=== PATIENT | male | born 1945 | race Caucasian/White ===

== ENCOUNTER → 2017-12-29 11:13 | Outpatient (CLI) | payer MEDICARE, OTHER, SELFPAY ==
[2017-12-29 13:10] LABS: Absolute Lymphocyte Count 1.75 X10^3/ul (0.83-4.51); Absolute Neutrophil Count 3.5 X10^3/uL (2.0-7.7); Basophil# 0.01 X10^3/uL; Basophil% 0.2 % (0-1); Eosinophil# 0.35 X10^3/uL; Eosinophils% 5.7 % (0-5); Hematocrit 43.2 % (40-54); Hemoglobin 14.6 g/dl (13.0-16.5); Lymphocyte # 1.75 X10^3/ul (4.0); Lymphocyte % 28.5 % (19-41); Mean Corp Hgb Conc 33.8 g/gl (32-36); Mean Corpuscular Hgb 31.5 pg (27.0-32.0); Mean Corpuscular Volume 93.1 fL (80-94); Mean Platelet Vol. 9.9 fl (6.2-12.0); Monocyte# 0.49 X10^3/uL; Neutrophil # 3.53 X10^3/uL (2.7-7.7); Neutrophil % 57.3 % (47-70); Platelet Count 205 K/mm3 (150-450); RBC Distribution Width SD 43.2 fl (35.1-43.9); Red Blood Count 4.64 M/mm3 (4.6-6.2); White Blood Count 6.2 K/mm3 (4.4-11.0)
[2017-12-29 13:11] LABS: POSITIVE COUNT NO; POSITIVE DIFFERENTIAL NO; POSITIVE MORPHOLOGY NO
[2017-12-29 13:32] LABS: ALB/GLOB Ratio 1.1 RATIO (0.9-2.4); AST(SGOT) 20 U/L (15-37); Alanine Aminotransfer ALT/SGPT 34 U/L (16-61); Albumin, Serum 3.8 g/dL (3.2-5.0); Alkaline Phosphatase 64 U/L (45-117); Anion Gap 10 (5-15); BUN 13 mg/dL (7-18); BUN/Creat Ratio 11.9 RATIO (10-20); Calcium,Total 8.6 mg/dL (8.5-10.1); Chloride 104 mmol/L (98-107); Creatinine, Serum 1.09 mg/dL (0.70-1.30); EST Glomerular Filtration Rate 71 mL/min (>60); Est Glom Filt Rate - Afr Amer 86 mL/min (>60); Globulin 3.6 g/dL (2.2-4.2); Glucose 152 mg/dL (74-106); Potassium 3.8 mmol/L (3.5-5.1); Protein, Total 7.4 g/dL (6.4-8.2); Sodium Level 140 mmol/L (136-145)
[2017-12-30 08:05] LABS: Hemoglobin A1c 5.9 % (4.2-6.3)
[2017-12-30 16:13] LABS: Hep C Antibodies <0.1 s/co ratio (0.0-0.9)
== END ==
PROVIDERS: Family Provider Family Medicine Geriatric Medicine; PCP Family Medicine Geriatric Medicine; Visit Provider Family Medicine Geriatric Medicine
DX: I10 Essential (primary) hypertension (principal); E16.2 Hypoglycemia, unspecified; Z13.89 Encounter for screening for other disorder; Z12.5 Encounter for screening for malignant neoplasm of prostate
CPT/HCPCS: 36415; 80053; 83036; 84153; 84443; 85025; 86803; G0103

== ENCOUNTER → 2018-01-19 16:05 | Outpatient (CLI) | payer MEDICARE, OTHER, SELFPAY | PROVIDERS: Family Provider Family Medicine Geriatric Medicine; PCP Family Medicine Geriatric Medicine; Visit Provider Family Medicine Geriatric Medicine | DX: R69 Illness, unspecified (principal) | CPT/HCPCS: 87633 ==

== ENCOUNTER → 2018-01-30 16:11 | Outpatient (CLI) | payer MEDICARE, OTHER, SELFPAY ==
[2018-02-04 11:58] LABS: Acetylcholine Receptor Binding < 0.03 nmol/L (0.00-0.24)
== END ==
PROVIDERS: Family Provider Family Medicine Geriatric Medicine; PCP Family Medicine Geriatric Medicine; Visit Provider Ophthalmology
DX: H53.2 Diplopia (principal)
CPT/HCPCS: 36415; 84238

== ENCOUNTER 2018-04-07 20:43 | Observation (INO) | payer MEDICARE, OTHER, SELFPAY ==
[2018-04-07 20:48] VITALS: BP 140/93; PULSE 71; RESP 16; TEMP 36.6; O2SAT 97; BMI 32.3
--- NOTE | 2018-04-07 21:28 | EKG12_ITS ---
Test Reason : Blood Pressure : / mmHG Vent. Rate : 063 BPM Atrial Rate : 063 BPM P-R Int : 192 ms QRS Dur : 108 ms QT Int : 422 ms P-R-T Axes : 043 029 024 degrees QTc Int : 431 ms Normal sinus rhythm Normal ECG Confirmed by ONEIL QUIÑONES, GERALD ([id number]), news video editor BONNIE COLLINS ([id number]) on 04/09/2018 9:05:33 AM Referred By: GUERITA Confirmed By:GERALD RIGGS MD
--- NOTE | 2018-04-07 21:28 | CT_ITS ---
STUDY: CT BRAIN WITHOUT CONTRAST REASON FOR EXAM: Male, 72 years old. Weakness RADIATION DOSAGE (If Supplied By Facility): CTDIvol = ( 44.99 ) mGy, DLP = ( 812.98 ) mGycm TECHNIQUE: Transaxial CT imaging of the brain was performed without administration of intravenous contrast material. Individualized dose optimization techniques were used for this CT. COMPARISON: None. FINDINGS: Normal soft tissue structures. Normal calvarium. Normal size ventricles and extra-axial spaces for the patient's age. Mild white matter microangiopathic ischemic changes of the cerebral hemispheres. Normal basal ganglia and thalami. Normal brainstem. Normal cerebellum. There is no intracranial hemorrhage. There are no findings of an acute ischemic infarction. Left maxillary retention cyst. CT/Brain/Head without Contrast IMPRESSION: Mild age-related changes of the brain. Electronically Signed: Jere Garrido DO at 22:13 EDT Tel [phone], Service support ,
[2018-04-07 21:32] VITALS: O2SAT 97
[2018-04-07 21:36] LABS: Bedside Glucose 135 mg/dL (70-110)
[2018-04-07 21:40] LABS: Absolute Lymphocyte Count 2.73 X10^3/ul (0.83-4.51); Absolute Neutrophil Count 3.2 X10^3/uL (2.0-7.7); Basophil# 0.01 X10^3/uL; Basophil% 0.1 % (0-1); Eosinophil# 0.26 X10^3/uL; Eosinophils% 3.8 % (0-5); Hematocrit 39.9 % (40-54); Hemoglobin 13.8 g/dl (13.0-16.5); Lymphocyte # 2.73 X10^3/ul (4.0); Lymphocyte % 39.6 % (19-41); Mean Corp Hgb Conc 34.6 g/gl (32-36); Mean Corpuscular Hgb 31.8 pg (27.0-32.0); Mean Corpuscular Volume 91.9 fL (80-94); Mean Platelet Vol. 9.6 fl (6.2-12.0); Monocyte# 0.65 X10^3/uL; Monocyte% 9.4 % (0-10); Neutrophil # 3.23 X10^3/uL (2.7-7.7); Platelet Count 166 K/mm3 (150-450); RBC Distribution Width CV 12.3 % (11.6-14.6); RBC Distribution Width SD 41.6 fl (35.1-43.9); Red Blood Count 4.34 M/mm3 (4.6-6.2); White Blood Count 6.9 K/mm3 (4.4-11.0)
--- NOTE | 2018-04-07 21:40 | RAD_ITS ---
STUDY: X-RAY CHEST REASON FOR EXAM: Male, 72 years old. Near-syncope TECHNIQUE: Single frontal view COMPARISON: None. FINDINGS: The lungs are clear and expanded. There is no demonstrated pleural abnormality. Normal size heart. Normal mediastinum and duke. Normal visualized pulmonary arteries. Calcified aortic arch and descending thoracic aorta. Degenerative changes of the thoracic spine. Normal visualized ribs, clavicles, and shoulders. There is no demonstrated abnormality of the visualized soft tissue structures of the upper abdomen. RAD/Chest 1 View IMPRESSION: Normal x-ray examination of the chest. Electronically Signed: Jeer Garrido DO at 22:06 EDT Tel [phone], Service support ,
[2018-04-07 21:42] LABS: POSITIVE COUNT NO; POSITIVE DIFFERENTIAL NO; POSITIVE MORPHOLOGY NO
[2018-04-07 21:46] LABS: International Normalized Ratio 1.1; Prothrombin Time (Protime)PT. 13.7 SECONDS (11.7-14.9)
[2018-04-07 21:47] LABS: Partial Thromboplast Time 28.9 Seconds (24.1-36.2)
[2018-04-07 22:00] VITALS: BP 147/77; PULSE 66; RESP 18; O2SAT 96
[2018-04-07 22:16] LABS: Anion Gap 9 (5-15); BUN 16 mg/dL (7-18); BUN/Creat Ratio 14.3 RATIO (10-20); Calcium,Total 8.4 mg/dL (8.5-10.1); Chloride 106 mmol/L (98-107); Creatinine, Serum 1.12 mg/dL (0.70-1.30); EST Glomerular Filtration Rate 69 mL/min (>60); Est Glom Filt Rate - Afr Amer 83 mL/min (>60); Estimated Creatinine Clearance 62.46 ml/min; Glucose 110 mg/dL (74-106); Potassium 3.6 mmol/L (3.5-5.1); Sodium Level 139 mmol/L (136-145)
[2018-04-07 22:30] VITALS: BP 142/79; PULSE 67; RESP 14; TEMP 36.8; O2SAT 96
[2018-04-07 23:00] VITALS: BP 135/75; PULSE 67; RESP 16; O2SAT 95
--- NOTE | 2018-04-07 23:27 | HP.PCM_ITS ---
Problem List (1) TIA Status: Acute (2) History of inferior wall myocardial infarction Status: Chronic (3) Atherosclerotic heart disease of [place] coronary artery without angina pectoris Status: Chronic Qualifiers: [place] vs. transplanted heart: [place] heart Qualified Code(s): I25.10 - Atherosclerotic heart disease of [place] coronary artery without angina pectoris Comment: per heart cath 06/03/2002 [facility] per Dr. Orta (4) History of left heart catheterization Status: Chronic Comment: May 2002 (5) History of angioplasty of peripheral vessel Status: Chronic Comment: 1997 right leg (6) URI, acute Status: Acute (7) Asthma Status: Chronic (8) Arthritis Status: Chronic (9) HTN (hypertension) Status: Chronic Qualifiers: Hypertension type: essential hypertension Qualified Code(s): I10 - Essential (primary) hypertension History of Present Illness Date of Admission: 04/07/18 Chief Complaint: TIA-like symptoms The patient is a 72 year old M with multiple comorbidities as mentioned above including chronic diplopia, 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 He also felt like sudden weakness, numbness below the midsection of his body and his legs not able to bear his weight along with disagreement imbalance. He denies vertigo at this time although he has history of vertigo in the past. Denies previous history of stroke There is also symptom complex lasted for about half an hour with the EMS arrived and brought him to ER. EMS blood pressure was 174/93, heart rate 74/min , respiratory rate 16. In ER, EKG shows normal sinus rhythm. CT has did not show acute change. NIH stroke scale 0. [] Past Medical History Past Medical History (Chronic Problems): Chronic Problems (Last Reviewed 12/04/17 @ 14:41 by Costa Orta MD) History of inferior wall myocardial infarction (Chronic) Atherosclerotic heart disease of [place] coronary artery without angina pectoris (Chronic) per heart cath 06/03/2002 [facility] per Dr. Orta History of left heart catheterization (Chronic) May 2002 History of angioplasty of peripheral vessel (Chronic) 1997 right leg Asthma (Chronic) Arthritis (Chronic) HTN (hypertension) (Chronic) Medical History: Medical History (Last Reviewed 12/04/17 @ 14:41 by Costa Orta MD) History of inferior wall myocardial infarction (Chronic) I25.2 Atherosclerotic heart disease of [place] coronary artery without angina pectoris (Chronic) I25.10 per heart cath 06/03/2002 [facility] per Dr. Orta Asthma (Chronic) J45.909 Arthritis (Chronic) M19.90 HTN (hypertension) (Chronic) I10 Hay fever J30.1 Allergies No Known Allergies Allergy (Verified 12/04/17 14:23) Home Medications: Ambulatory Orders Medication Instructions Recorded amitriptyline 10 mg tablet 25 mg PO QHS 10/10/17 cilostazol 50 mg tablet 100 mg PO DAILY 10/10/17 folic acid 20 mg capsule 1 mg PO DAILY 10/10/17 qobsawnvexo-zulfcxksw-vwey820-hyal 2 tab PO BID 10/10/17 750 mg-100 mg-125 mg-1.65 mg tablet loratadine 10 mg tablet 10 mg PO QDAY 10/10/17 modafinil 100 mg tablet 200 mg PO DAILY 10/10/17 sqhengdx-wgo-wemaz acid 300 1 tab PO DAILY 10/10/17 mcg-lycopene 600 mcg-lutein 300 mcg tablet nitroglycerin 0.3 mg sublingual 0.3 mg SUBLINGUAL Q5M PRN 10/10/17 tablet omega-3 fatty acids 1,000 mg 1,000 mg PO QDAY 10/10/17 capsule riboflavin (vitamin B2) 100 mg 100 mg PO BID 10/10/17 tablet aspirin 81 mg tablet,delayed 81 mg PO DAILY tab 12/04/17 release gabapentin 300 mg capsule 300 mg PO DINNER 12/04/17 omeprazole 20 mg capsule,delayed 20 mg PO QDAY 12/04/17 release verapamil ER 120 mg 24 hr 200 mg PO QHS cap 12/04/17 capsule,extended release Albuterol IH (ProAir) [Proair Hfa 1 - 2 puff INHALATION Q6H PRN PRN 04/07/18 (SP)Vent Pts] Atorvastatin Calcium [Lipitor] 80 mg PO QHS 04/07/18 Gabapentin [Neurontin] 600 mg PO QHS 04/07/18 Isosorbide Mononitrate [Isosorbide 30 mg PO QHS 04/07/18 Mononitrate ER] Metoprolol Succinate [Toprol Xl] 50 mg PO QHS 04/07/18 Budesonide/Formoterol 80-4.5 2 puff INHALATION BID 04/08/18 [Symbicort 80-4.5 Mcg Inhaler] Enalapril Maleate [Vasotec] 10 mg PO BID 04/08/18 Fluticasone Furoate [Veramyst] 27.5 mcg NS BID 04/08/18 Gabapentin [Neurontin] 300 mg PO DINNER 04/08/18 Omeprazole [Prilosec] 20 mg PO BID 04/08/18 Surgical History: Surgical History (Last Reviewed 12/04/17 @ 14:41 by Costa Orta MD) History of left heart catheterization (Chronic) Z98.890 May 2002 History of angioplasty of peripheral vessel (Chronic) Z98.62 1998 right leg Smoking Status: Former smoker - *Family History Paternal Family History: Family History (Last Reviewed 12/04/17 @ 14:41 by Costa Orta MD) Father Myocardial infarction, Onset Age: 40 Cancer History Items: No pertinent history Review of Systems Constitutional: Denies: Chills, Fever, Weight Change Eyes: Reports: Double vision - chronic. Denies: Blurred vision, Vision Change HEENT: Denies: Head Aches, Sinus Congestion, Sinus Drainage Cardiovascular: Denies: Chest Pain, Palpitations Respiratory: Denies: Cough, Shortness of breath at rest, Sputum production Gastrointestinal: Denies: Abdominal Pain, Nausea, Vomiting Genitourinary: Denies: Dysuria Musculoskeletal: Denies: Joint Pain, Joint Tenderness Skin: Denies: Rash, Wounds Neurological: Reports: Balance problems, Change in Speech, Slurred speech, Confusion, Focal weakness, Incoordination, Numbness. Denies: Tingling Psychiatric: Denies: Anxiety, Depression, Homicidal Ideations, Suicidal Ideations Hematologic/ Lymphatic: Denies: Easy Bruising, Easy Bleeding VTE Information - Inpt Only VTE Present on Admission: No VTE Mechan Device Prophylaxis: SCD's VTE Pharm Prophylaxis ordered?: Yes Patient Problems: Active and Suspected Problems (Last Reviewed 12/04/17 @ 14:41 by Costa Orta MD ) TIA (Acute) - Physical Exam General: Alert, Oriented x3, Cooperative HEENT: Atraumatic, PERRLA, EOMI, Normocephalic, - - Field of vision to 1-1 confrontation test is within normal limit. Has diplopia on Looking left horizontal side Neck: Supple, No JVD, Negative Carotid Bruits Lungs: Clear to auscultation, Normal air movement Cardiovascular: Regular rate, Normal S1, Normal S2, No murmurs Abdomen: Bowel Sounds Present, Soft, Non Tender Extremities: No edema, Capillary Refill Less than 3 Seconds Skin: No rashes, No breakdown Musculoskeletal: No Tenderness to Palpation of Joints or Extremities, Arthritic Changes Neurological: Cranial nerves II-XII grossly intact, Deep Tendon Reflexes 2+/4 and Symmetrical, Neuro grossly intact, Motor Exam 5/5 strength throughout Psych/Mental Status: Normal Affect, Appropriate Vital Signs Temp Pulse Resp BP Pulse Ox 98.2 F 67 16 135/75 H 95 04/07/18 22:30 04/07/18 23:00 04/07/18 23:00 04/07/18 23:00 04/07/18 23:00 Oxygen Flow Rate (L/min) 2 Oxygen Delivery Method Room Air Weight: 225 lb Body Mass Index (BMI) 32.3 Finger Stick Blood Glucose 135 Laboratory Tests Past 24 Hrs 04/07/18 04/07/18 04/07/18 21:00 21:00 21:00 WBC 6.9 RBC 4.34 L Hgb 13.8 Hct 39.9 L MCV 91.9 MCH 31.8 MCHC 34.6 RDW 12.3 RDW Differential 41.6 Plt Count 166 MPV 9.6 Immature Gran % (Auto) 0.100 Neut % (Auto) 47.0 Lymph % (Auto) 39.6 Ida % (Auto) 9.4 Eos % (Auto) 3.8 Baso % (Auto) 0.1 Absolute Neuts (auto) 3.2 Absolute Lymphs (auto) 2.73 Total Counted Not Reportable PT 13.7 INR 1.1 APTT 28.9 Sodium 139 Potassium 3.6 Chloride 106 Carbon Dioxide 24.0 Anion Gap 9 BUN 16 Creatinine 1.12 Estim Creat Clear Calc 62.46 Est GFR (MDRD) Af Amer 83 Est GFR (MDRD) Non-Af 69 BUN/Creatinine Ratio 14.3 Glucose 110 H Calcium 8.4 L Troponin I < 0.015 POC Glucose 04/07/18 21:30 POC Glucose 135 H Assessment/Plan All Active Problems (Last Reviewed 12/04/17 @ 14:41 by Costa Orta MD) TIA (Acute) URI, acute (Acute) The patient is a 72 year old M with multiple comorbidities as mentioned above including chronic diplopia, 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 He also felt like sudden weakness, numbness below the midsection of his body and his legs not able to bear his weight along with disagreement imbalance. He denies vertigo at this time although he has history of vertigo in the past. Denies previous history of stroke There is also symptom complex lasted for about half an hour with the EMS arrived and brought him to ER. EMS blood pressure was 174/93, heart rate 74/min , respiratory rate 16. In ER, EKG shows normal sinus rhythm. CT has did not show acute change. NIH stroke scale 0. 1. TIA-like symptoms: Patient is being admitted in PCU. Stroke workup with MRI brain, CT angiogram of head and neck, 2D echo. Troponin enzyme is negative. conveyor monitor. BP and glucose control as per TIA/stroke guidelines. PT/OT and speech evaluation. Patient on aspirin and a statin. Neuro consult. 2. Mild coronary artery disease: Patient follows Dr. orta.2. Patient had 2-4 times cardiac cath but no stent. The patient on baby aspirin, atorvastatin, isosorbide mononitrate, metoprolol succinate at home. Cardiac medications continued. 3. Eye symptoms: Patient has diplopia the exact reason on left side of visual field:. Patient follows Dr. Flores was told does not have glaucoma or cataract or posterior ophthalmologic disease. Patient denies diabetes mellitus. Patient request sending the MRI brain to his wood drilling machine operator and his appointment next Friday or following Friday. 4. Other comorbidities include right leg angioplasty in 1997, hypertension, peripheral neuropathy, arthritis and asthma: Stable. Patient is on Neurontin. Home medication reconciliation done. This note was generated with [employer] software. Every effort was made to ensure accuracy, however computerized rock cutter mistakes may persist. Laboratory Results 04/07/18 21:00: WBC 6.9, RBC 4.34 L, Hgb 13.8, Hct 39.9 L, MCV 91.9, MCH 31.8, MCHC 34.6, RDW 12.3, RDW Differential 41.6, Plt Count 166, MPV 9.6, Immature Gran % (Auto) 0.100, Neut % (Auto) 47.0, Lymph % (Auto) 39.6, Ida % (Auto) 9.4 , Eos % (Auto) 3.8, Baso % (Auto) 0.1, Absolute Neuts (auto) 3.2, Absolute Lymphs (auto) 2.73, Total Counted Not Reportable 04/07/18 21:00: PT 13.7, INR 1.1, APTT 28.9 04/07/18 21:00: Sodium 139, Potassium 3.6, Chloride 106, Carbon Dioxide 24.0, Anion Gap 9, BUN 16, Creatinine 1.12, Estim Creat Clear Calc 62.46, Est GFR ( MDRD) Af Amer 83, Est GFR (MDRD) Non-Af 69, BUN/Creatinine Ratio 14.3, Glucose 110 H, Calcium 8.4 L, Troponin I < 0.015 04/07/18 21:30: POC Glucose 135 H Clinical Impression(s) from Imaging Studies Brain CT 04/07/18 21:28 IMPRESSION: Mild age-related changes of the brain. Chest X-Ray 04/07/18 21:40 IMPRESSION: Normal x-ray examination of the chest. Code Visit OBSV E&M: [id number] Initial observation care L3
--- NOTE | 2018-04-07 23:37 | ED.DCSUM_ITS ---
- ER Visit Summary Date of Service: 04/07/18 Chief Complaint: Near syncope History of Present Illness: The patient is a 72 M presents after near syncopal episode. Patient states he was at the library with his . He started to feel lightheaded and felt like he was going to pass out. He states he had to hold on to avoid falling. When his came to him he was unable to speak and get words out. He then began having slurred speech. He denies chest pain. He has mild nausea and shortness of breath. He complains of sensation of numbness and weakness in both legs. Denies other complaints. Physical Examination: Vitals are stable. Patient is afebrile. Alert no acute distress. HEENT exam is unremarkable. Neck is supple. Lungs are clear and equal bilaterally. Heart is regular rate and rhythm. Abdomen is soft nontender nondistended. Extremities are unremarkable. Skin is warm and dry. No focal neurologic deficit. NIH 0 Remainder of exam is unremarkable. Emergency Department Course and Treatment: EKG sinus rate is 63 with no acute changes. Chest x-ray shows no acute process. CT head shows mild age-related changes. CBC, chemistries unremarkable. INR is 1.1. Troponin is negative. Patient is much improved on repeat evaluation. Repeat NIH continues to be 0. Will discuss with the hospital for observation. Disposition: Admission Impression: Near syncope, TIA This note was generated with [employer] dictation software. It may contain incorrect words, spelling, and punctuation that were not noted in review of the chart prior to signing ED Disposition - Plan for ED Patient: Chief Complaint: Syncope Referrals: Teo Lamb Chi, MD [Primary Care Provider] -
[2018-04-07 23:42] VITALS: BP 141/74; PULSE 70; RESP 12; O2SAT 97
[2018-04-08] VITALS (11 sets, daily range): BP systolic 119–146; BP diastolic 59–87; PULSE 54–76; RESP 16–18; TEMP 36.4–36.5; O2SAT 94–97; BMI 33.1; BMI 33.2
--- NOTE | 2018-04-08 01:05 | MRI_ITS ---
STUDY: MRI BRAIN WITHOUT CONTRAST REASON FOR EXAM: Male, 72 years old. CVA/TIA. Dizziness. Leg weakness. Slurred speech. Difficulty with speech. TECHNIQUE: Standardized multiplanar fat and water weighted pulse sequences were obtained. COMPARISON: CT head without contrast 04/07/2018. FINDINGS: No restricted diffusion to suspect acute or subacute ischemic infarct. Normal size of the ventricles and extra-axial spaces for the patient's age. Normal white matter tracts of the supratentorial brain. Normal bilateral basal ganglia. Normal thalami. There is no extra-axial fluid accumulation. Normal flow voids within the major intracranial circulation suggesting patency by spin echo criteria. Normal sella turcica, pituitary gland, infundibular stalk, optic chiasm and hypothalamus. Normal tectal plate and pineal gland. Normal midbrain, tori and medulla. Normal cerebellum. Normal basal cisterns. Normal bilateral temporal bones. Normal bilateral internal auditory canals. No demonstrated orbital abnormality, within the constraints of a routine brain study. Normal visualized paranasal sinuses. Normal calvarium and skull base. Normal visualized soft tissue structures. Normal visualized upper cervical spine. MRI/Brain without Contrast IMPRESSION: No MRI evidence of acute or subacute ischemic infarct. No MRI evidence of remote cortical-based ischemic infarct or old lacunar infarcts. No MRI evidence of intracranial mass or acute intracranial abnormality. Electronically Signed: Dany Cruz MD at 9:21 EDT , Service support ,
--- NOTE | 2018-04-08 01:06 | CT_ITS ---
STUDY: CTA OF THE BRAIN REASON FOR EXAM: Male, 72 years old. TIA,SYNCOPAL EPISODE,WEAKNESS,ELEVATED BP HX:HTN,ASTHMA RADIATION DOSAGE (If Supplied By Facility): CTDIvol = ( 22.22 ) mGy, DLP = ( 734.71 ) mGycm TECHNIQUE: CT angiography was performed with a multi-detector CT scanner. Data acquisition was obtained from the skull base through the vertex following intravenous administration of ml of . MIP images were reconstructed from the axial data set. Post-processing of the angiographic images was performed, with multiplanar reformation and 3D reconstruction. Individualized dose optimization techniques were used for this CT. COMPARISON: None. FINDINGS: Normal bilateral petrous carotid arteries. There is calcified plaque formation of the right cavernous carotid artery, with a mild stenosis (less than 50%). There is calcified plaque formation of the left cavernous carotid artery, with a mild stenosis (less than 50%). Normal right A1 segments of the anterior cerebral artery. Normal left A1 segments of the anterior cerebral artery. Normal intact anterior communicating artery (ACOM). Normal bilateral A2 segments of the anterior cerebral arteries. Normal right M1 and M2 segments of the middle cerebral arteries, with a normal M1 bifurcation. Normal left M1 and M2 segments of the middle cerebral arteries, with a normal M1 bifurcation. There is a persistent origin of the right posterior cerebral artery with absence of the posterior communicating artery (PCOM). Normal left posterior communicating artery (PCOM). Normal bilateral vertebral arteries. Normal basilar artery with a normal basilar bifurcation. The visualized bilateral superior cerebellar (SCA) arteries are normal. Normal bilateral P1, P2 and visualized P3 segments of the posterior cerebral arteries. There is no demonstrated aneurysm of the [place]. There is no demonstrated abnormality of the visualized brain. CT/CTA Head W/WO Contrast IMPRESSION: There is calcified plaque formation of the right cavernous carotid artery, with a mild stenosis (less than 50%). There is calcified plaque formation of the left cavernous carotid artery, with a mild stenosis (less than 50%). Normal [place] without a demonstrated aneurysm or hemodynamically significant stenosis. Electronically Signed: Billy Lloyd MD at 3:02 EDT Tel , Service support ,
--- NOTE | 2018-04-08 01:06 | CT_ITS ---
STUDY: CTA NECK WITH CONTRAST REASON FOR EXAM: Male, 72 years old. TIA,SYNCOPAL EPISODE,WEAKNESS,ELEVATED BP HX:ASTHMA,HTN RADIATION DOSAGE (If Supplied By Facility): CTDIvol = ( 22.22 ) mGy, DLP = ( 734.71 ) mGycm TECHNIQUE: CT angiography with multi-detector data acquisition was performed from the aortic arch to the skull base following intravenous administration of 100ML ml of Isovue 370 contrast. MIP images were reconstructed from the axial data set. Post-processing of the angiographic images was performed, with multiplanar reformation and 3D reconstruction. Individualized dose optimization techniques were used for this CT. COMPARISON: None. FINDINGS: AORTIC ARCH: There is atherosclerotic calcific plaque formation of the aortic arch and great vessels arising from the aortic arch, without a hemodynamically significant stenosis. There is a normal origin of the brachiocephalic, left common carotid, and left subclavian arteries. RIGHT CAROTID ARTERIES: There is atherosclerotic plaque formation of the common carotid artery, but without a hemodynamically significant stenosis. There is mild atherosclerotic plaque formation with minimal narrowing of the right carotid bulb. There is mild atherosclerotic plaque formation of the origin of the right internal carotid artery with less than 50% cross sectional diameter stenosis. Normal visualized cervical portion of the right internal carotid artery. Normal origin of the right external carotid artery (ECA). LEFT CAROTID ARTERIES: There is atherosclerotic plaque formation of the common carotid artery, but without a hemodynamically significant stenosis. There is moderate atherosclerotic plaque formation with moderate narrowing of the carotid bulb. There is moderate atherosclerotic plaque formation of the origin of the left internal carotid artery with an estimated stenosis of 50-69% stenosis. There is an irregular ulcerated plaque at the origin of the left internal carotid artery. Normal visualized cervical portion of the left internal carotid artery. Normal origin of the left external carotid artery (ECA). VERTEBRAL ARTERIES: There is enhancement within the bilateral vertebral arteries with a small right vertebral artery, and a dominant left vertebral artery. There is 90% stenosis at the origin of the right vertebral artery. There is no significant stenosis at the origin of left vertebral artery. CT/CTA Neck W/WO Contrast IMPRESSION: There is moderate atherosclerotic plaque formation of the origin of the left internal carotid artery with an estimated stenosis of 50-69% stenosis. There is an irregular ulcerated plaque at the origin of the left internal carotid artery. There is 90% stenosis at the origin of the right vertebral artery. The degree of stenosis calculation is in accordance with NASCET criteria. Electronically Signed: Billy Lloyd MD at 2:58 EDT Tel , Service support ,
--- NOTE | 2018-04-08 01:07 | ECHOD_ITS ---
Reason For Study: TIA/CVA Procedure This was a 2D Doppler, Color Flow transthoracic echocardiogram. Exam performed portable in patient room. Left Ventricle Normal LV size. Mild concentric left ventricular hypertrophy. Left ventricular systolic function is normal. The estimated ejection fraction is 65 %. Transmitral doppler flow suggestive of impaired relaxation of left ventricle. No regional wall motion abnormalities noted. Right Ventricle Normal RV size. Normal systolic function. Atria The left atrium is mildly enlarged. Normal right atrium. Mitral Valve Normal mitral valve. Tricuspid Valve Normal tricuspid valve. Mild (1+) tricuspid valve insufficiency. Pulmonary artery systolic pressure is 23 mmHg. Aortic Valve Normal aortic valve. Trisinus/trileaflet aortic valve. Great Vessels Normal aortic root. The pulmonary artery is normal size. Normal inferior vena cava. Pericardium/Pleural No pericardial effusion. MMode/2D Measurements & Calculations LVIDd: 4.0 cm IVSd: 1.2 cm Ao root diam: 3.3 cm LVIDs: 2.7 cm LVPWd: 1.2 cm LA dimension: 4.0 cm RVDd: 4.1 cm FS: 30.7 % LAV(MOD-bp): 64.8 ml LA A4 area: 21.3 cm2 RA A4 area: 15.1 cm2 LAV(MOD-bp) Indexed: 29.2 ml/m2 LAV(MOD-sp2): 64.7 ml LAV(MOD-sp4): 62.5 ml Doppler Measurements & Calculations MV E max carlos: 75.3 cm/sec Lat Peak E' Carlos: 7.2 cm/sec Med Peak E' Carlos: 8.0 cm/sec MV A max carlos: 99.9 cm/sec E/E' lat: 10.4 E/E' med: 9.4 MV E/A: 0.75 Ao V2 max: 158.6 cm/sec LV V1 max: 115.6 cm/sec PA V2 max: 109.6 cm/sec Ao max P.1 mmHg LV V1 max P.3 mmHg TR max carlos: 227.1 cm/sec TR max P.6 mmHg Interpretation Summary Normal LV size. Mild concentric left ventricular hypertrophy. Left ventricular systolic function is normal. The estimated ejection fraction is 65 %. The left atrium is mildly enlarged. Mild (1+) tricuspid valve insufficiency. Transmitral doppler flow suggestive of impaired relaxation of left ventricle Ordering Physician: Anthony Jernigan Referring Physician: Teo Lamb Chi Performed By: Delisa Lindsey, GEO, RVT
[2018-04-08] MEDS: 0.9% Normal Saline 1,000 ML 75 ML IV (02:24)
[2018-04-08] MEDS: Atorvastatin Calcium 80 MG Tablet PO (02:24)
[2018-04-08] MEDS: Isosorbide Mononitrate 30 MG Tablet PO (02:24)
[2018-04-08 02:58] LABS: Cholesterol 129 mg/dL (200); High Density Lipoprotein 33 mg/dL; Triglycerides 177 mg/dL; Very Low Density Lipoprotein 35 mg/dL (5-40)
[2018-04-08] MEDS: Budesonide Respules 0.5 MG/2 ML AMPUL.NEB. INHALATION (06:44)
[2018-04-08] MEDS: Albuterol 2.5 MG/3 ML VIAL.NEB. INHALATION ×2 (06:44→13:15)
[2018-04-08] MEDS: Acetaminophen 325 MG Tablet 650 MG PO (07:05)
[2018-04-08 07:10] LABS: Bedside Glucose 98 mg/dL (70-110)
[2018-04-08 07:27] LABS: Magnesium 2.1 mg/dL (1.6-2.6); Thyroid Stim Hormone (TSH) 1.88 uIU/mL (0.358-3.74)
[2018-04-08] MEDS: Folic Acid 1 MG Tablet PO (08:00)
[2018-04-08] MEDS: Multivitamins,Ther W-Minerals Tablet 1 TABLET PO (08:00)
[2018-04-08] MEDS: Aspirin 81 MG TAB.CHEW PO (08:01)
[2018-04-08] MEDS: Famotidine 20 MG Tablet PO (09:43)
[2018-04-08] MEDS: 0.9% NaCl Peripheral Flush Adult/Peds IV (09:43)
[2018-04-08] MEDS: Omega-3 Acid Ethyl Esters 1 GM Capsule PO (09:43)
[2018-04-08] MEDS: Loratadine 10 MG Tablet PO (09:43)
[2018-04-08] MEDS: Lisinopril 10 MG Tablet PO (09:44)
[2018-04-08] MEDS: Pantoprazole Sodium 20 MG Tablet PO (09:44)
--- NOTE | 2018-04-08 10:14 | CDU_ITS ---
Reason For Study: TIA Rt. Velocities/BP Lt. Velocities/BP Prox CCA 94/21 cm/sec. Prox CCA 127/24 cm/sec. Mid CCA 82/26 cm/sec. Mid CCA 113/33 cm/sec. Dist CCA 53/16 cm/sec. Dist CCA 80/25 cm/sec. Prox ICA 75/26 cm/sec. Prox ICA 121/45 cm/sec. Mid ICA 80/32 cm/sec. Mid ICA 146/ cm/sec. Dist ICA 47/18 cm/sec. Dist ICA 132/60 cm/sec. Rt. ICA/CCA = 1.0. Lt. ICA/CCA = 1.3. Prox ECA 108/18 cm/sec. Prox ECA 103/22 cm/sec. Rt. Vert. 85/15 cm/sec. Lt. Vert. 42/15 cm/sec. Right Extracranial There is heterogeneous, irregular atherosclerotic plaque noted in the right common carotid artery. There is heterogeneous, irregular atherosclerotic plaque noted in the right internal carotid artery. There is heterogeneous, irregular atherosclerotic plaque noted in the right external carotid artery. The right external carotid artery is not well visualized. Antegrade flow is noted in the right vertebral artery. There is heterogeneous, irregular atherosclerotic plaque noted in the right bulb. Left Extracranial There is heterogeneous, irregular atherosclerotic plaque noted in the left common carotid artery. There is heterogeneous, irregular atherosclerotic plaque noted in the left internal carotid artery. There is heterogeneous, irregular atherosclerotic plaque noted in the left external carotid artery. Antegrade flow is noted in the left vertebral artery. There is heterogeneous, irregular atherosclerotic plaque noted in the left bulb. Procedure Carotid Duplex 50168. Exam performed portable in patient room. 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 Normal flow right external carotid with plague and poor visualization. Moderate calcific plague at the proximal left common carotid. Irregular calcific plague at the proximal left internal and external carotids 50-69% stenosis left internal carotid Patent and antegrade bilateral vertebrals. Ordering Physician: Jailene Taylor Referring Physician: JOSÉ MIGUEL VERONICA CHI Performed By: Mona Lyon, GEO, RVT
[2018-04-08] MEDS: Heparin Injection (Vial) 5,000 UNIT/ML VIAL 5000 UNIT SC (12:11)
[2018-04-08 12:26] LABS: Bedside Glucose 109 mg/dL (70-110)
[2018-04-08] MEDS: Modafinil 200 MG Tablet PO (13:43)
--- NOTE | 2018-04-08 13:57 | PCM.CONS.GEN ---
Problem List (1) TIA Status: Acute Reason for Consult Date of Consultation: 04/08/18 Reason for Consultation: ? TIA History of Present Illness: The patient is a 72 year old CM with PMH HTN, CAD, PVD s/p angioplasty, Cluster WU, and KAM s/p CPAP admitted with acute onset word finding difficulty and difficulty in walking. Per patient he was at the library yesterday (04/07/18) when he felt light headed, was able to speak but could not get the correct words out, felt both his legs were weak and felt he could not walk, episode lasted for about 15 minutes, had mild UW, at present per patient is back to his baseline. Denies LOC or witnessed seizures. Lives with , does drive, denies any falls, does not use cane or walker to ambulate, and does not need any assistance for ADLs. MRI brain done on admission reported nothing acute, CTA head/neck showed < 50% stenosis B/L ICA. LDL-61. 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 Ashby History of left heart catheterization (Chronic) May 2002 History of angioplasty of peripheral vessel (Chronic) 1997 right leg Asthma (Chronic) Arthritis (Chronic) HTN (hypertension) (Chronic) Medical History: Medical History (Last Reviewed 12/04/17 @ 14:41 by Costa Ashby MD) History of inferior wall myocardial infarction (Chronic) I25.2 Atherosclerotic heart disease of [place] coronary artery without angina pectoris (Chronic) I25.10 per heart cath 06/03/2002 [facility] per [address]. Ashby Asthma (Chronic) J45.909 Arthritis (Chronic) M19.90 HTN (hypertension) (Chronic) I10 Hay fever J30.1 Allergies No Known Allergies Allergy (Verified 12/04/17 14:23) Home Medications: Ambulatory Orders Medication Instructions Recorded amitriptyline 10 mg tablet 25 mg PO QHS 10/10/17 cilostazol 50 mg tablet 100 mg PO DAILY 10/10/17 folic acid 20 mg capsule 1 mg PO DAILY 10/10/17 ekbglthtayq-zcjrnvkgy-ottm463-hyal 2 tab PO BID 10/10/17 750 mg-100 mg-125 mg-1.65 mg tablet loratadine 10 mg tablet 10 mg PO QDAY 10/10/17 modafinil 100 mg tablet 200 mg PO DAILY 10/10/17 vxqiyaxz-aod-npgob acid 300 1 tab PO DAILY 10/10/17 mcg-lycopene 600 mcg-lutein 300 mcg tablet nitroglycerin 0.3 mg sublingual 0.3 mg SUBLINGUAL Q5M PRN 10/10/17 tablet omega-3 fatty acids 1,000 mg 1,000 mg PO QDAY 10/10/17 capsule riboflavin (vitamin B2) 100 mg 100 mg PO BID 10/10/17 tablet aspirin 81 mg tablet,delayed 81 mg PO DAILY tab 12/04/17 release gabapentin 300 mg capsule 300 mg PO DINNER 12/04/17 omeprazole 20 mg capsule,delayed 20 mg PO QDAY 12/04/17 release verapamil ER 120 mg 24 hr 200 mg PO QHS cap 12/04/17 capsule,extended release Albuterol IH (ProAir) [Proair Hfa 1 - 2 puff INHALATION Q6H PRN PRN 04/07/18 (SP)Vent Pts] Atorvastatin Calcium [Lipitor] 80 mg PO QHS 04/07/18 Gabapentin [Neurontin] 600 mg PO QHS 04/07/18 Isosorbide Mononitrate [Isosorbide 30 mg PO QHS 04/07/18 Mononitrate ER] Metoprolol Succinate [Toprol Xl] 50 mg PO QHS 04/07/18 Budesonide/Formoterol 80-4.5 2 puff INHALATION BID 04/08/18 [Symbicort 80-4.5 Mcg Inhaler] Enalapril Maleate [Vasotec] 10 mg PO BID 04/08/18 Fluticasone Furoate [Veramyst] 27.5 mcg NS BID 04/08/18 Gabapentin [Neurontin] 300 mg PO DINNER 04/08/18 Omeprazole [Prilosec] 20 mg PO BID 04/08/18 Surgical History: Surgical History (Last Reviewed 12/04/17 @ 14:41 by Costa Ashby MD) History of left heart catheterization (Chronic) Z98.890 May 2002 History of angioplasty of peripheral vessel (Chronic) Z98.62 1997 right leg Lives: Spouse/ Significant Other Smoking Status: Current every day smoker Tobacco Use: Cigarettes Alcohol: None Drugs: None - *Family History Paternal Family History: Family History (Last Reviewed 12/04/17 @ 14:41 by Costa Ashby MD) Father Myocardial infarction, Onset Age: 40 Cancer History Items: No pertinent history Review of Systems Constitutional: Reports: - - complete ROS negative except as documented in HPI Patient Problems: Active and Suspected Problems (Last Reviewed 12/04/17 @ 14:41 by Costa Ashby MD) TIA (Acute) - Physical Exam General: Alert HEENT: Normocephalic Neck: Supple Lungs: Clear to auscultation Cardiovascular: Normal S1, Normal S2 Abdomen: Bowel Sounds Present Extremities: No cyanosis Skin: No rashes Musculoskeletal: No Tenderness to Palpation of Joints or Extremities Neurological: - - consious, alert, CN 2-12 grossly intact, power 5/5 all 4 extremities, no sensory loss, no cerebellar signs, no dysarthria, no aphasia, Reflexes + B/L B/S/T/K/A, gait deferred, NIHSS 0, mRS 0 at baseline Psych/Mental Status: Normal Affect Vital Signs Temp Pulse Resp BP Pulse Ox 97.7 F L 58 L 18 119/71 96 04/08/18 12:14 04/08/18 12:14 04/08/18 12:14 04/08/18 12:14 04/08/18 12:14 Oxygen Delivery Method Room Air Weight: 104.8 kg Body Mass Index (BMI) 33.1 Intake and Output for Last 24 Hours 04/06/18 04/07/18 04/08/18 23:59 23:59 23:59 Intake Total 1097 / 1097 Balance 1097 / 1097 Laboratory Tests Past 24 Hrs 04/08/18 04/08/18 04/08/18 01:37 01:37 01:45 Magnesium 2.1 Troponin I < 0.015 Triglycerides 177 Cholesterol 129 LDL Cholesterol 61 VLDL Cholesterol 35 HDL Cholesterol 33 L TSH 1.90 1.88 POC Glucose 04/08/18 04/08/18 12:09 07:04 POC Glucose 109 98 Assessment/Plan All Active Problems (Last Reviewed 12/04/17 @ 14:41 by Costa Ashby MD) TIA (Acute) URI, acute (Acute) The patient is a 72 year old CM with PMH HTN, CAD, PVD s/p angioplasty, Cluster WU, KAM on CPAP admitted with acute onset word finding difficulty and difficulty in walking. Per patient he was at the library yesterday (04/07/18) when he felt light headed, was able to speak but could not get the correct words out, felt both his legs were weak and felt he could not walk, episode lasted for about 15 minutes, had mild WU, at present per patient is back to his baseline. Denies LOC or witnessed seizures. Lives with , does drive, denies any falls, does not use cane or walker to ambulate, and does not need any assistance for ADLs. MRI brain done on admission reported nothing acute, CTA head/neck showed < 50% stenosis B/L ICA. LDL-61. Impression ? TIA Plan -ASA 325 mg PO once daily -On Cilostazol -On Lipitor 80 mg PO q hs at home -MRI brain- nothing acute -CTA head/neck reviewed, B/L ICA < 50% stenosis -Labs reviewed -LDL-61, await Hba1c -Await TTE -Check ESR -Stroke risk factors discussed and stroke education provided -PT/OT/ST -Fall precautions -GI/DVT prophylaxis -Follow up with Neurology as outpatient in 4-6 weeks -Please call with questions if any -Thank you for allowing us to participate in patient's care and management I spent 60 minutes taking history, doing physical examination, reviewing medical records, coordinating care and counseling patient and available family. Code Visit Inpatient E&M: [id number] Init Hosp L3
--- NOTE | 2018-04-08 14:03 | CON.PCM_ITS ---
Problem List (1) TIA Status: Acute Reason for Consult Date of Consultation: 04/08/18 Reason for Consultation: ? TIA History of Present Illness: The patient is a 72 year old CM with PMH HTN, CAD, PVD s/p angioplasty, Cluster WU, and KAM s/p CPAP admitted with acute onset word finding difficulty and difficulty in walking. Per patient he was at the library yesterday (04/07/18) when he felt light headed, was able to speak but could not get the correct words out, felt both his legs were weak and felt he could not walk, episode lasted for about 15 minutes, had mild WU, at present per patient is back to his baseline. Denies LOC or witnessed seizures. Lives with , does drive, denies any falls, does not use cane or walker to ambulate, and does not need any assistance for ADLs. MRI brain done on admission reported nothing acute, CTA head/neck showed < 50% stenosis B/L ICA. LDL-61. 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 Ashby History of left heart catheterization (Chronic) May 2002 History of angioplasty of peripheral vessel (Chronic) 1997 right leg Asthma (Chronic) Arthritis (Chronic) HTN (hypertension) (Chronic) Medical History: Medical History (Last Reviewed 12/04/17 @ 14:41 by Costa Ashby MD) History of inferior wall myocardial infarction (Chronic) I25.2 Atherosclerotic heart disease of [place] coronary artery without angina pectoris (Chronic) I25.10 per heart cath 06/03/2002 [facility] per Dr. Ashby Asthma (Chronic) J45.909 Arthritis (Chronic) M19.90 HTN (hypertension) (Chronic) I10 Hay fever J30.1 Allergies No Known Allergies Allergy (Verified 12/04/17 14:23) Home Medications: Ambulatory Orders Medication Instructions Recorded amitriptyline 10 mg tablet 25 mg PO QHS 10/10/17 cilostazol 50 mg tablet 100 mg PO DAILY 10/10/17 folic acid 20 mg capsule 1 mg PO DAILY 10/10/17 nbxnletlrge-tycjrpsvi-zrmd419-hyal 2 tab PO BID 10/10/17 750 mg-100 mg-125 mg-1.65 mg tablet loratadine 10 mg tablet 10 mg PO QDAY 10/10/17 modafinil 100 mg tablet 200 mg PO DAILY 10/10/17 epogxlop-upw-osunz acid 300 1 tab PO DAILY 10/10/17 mcg-lycopene 600 mcg-lutein 300 mcg tablet nitroglycerin 0.3 mg sublingual 0.3 mg SUBLINGUAL Q5M PRN 10/10/17 tablet omega-3 fatty acids 1,000 mg 1,000 mg PO QDAY 10/10/17 capsule riboflavin (vitamin B2) 100 mg 100 mg PO BID 10/10/17 tablet aspirin 81 mg tablet,delayed 81 mg PO DAILY tab 12/04/17 release gabapentin 300 mg capsule 300 mg PO DINNER 12/04/17 omeprazole 20 mg capsule,delayed 20 mg PO QDAY 12/04/17 release verapamil ER 120 mg 24 hr 200 mg PO QHS cap 12/04/17 capsule,extended release Albuterol IH (ProAir) [Proair Hfa 1 - 2 puff INHALATION Q6H PRN PRN 04/07/18 (SP)Vent Pts] Atorvastatin Calcium [Lipitor] 80 mg PO QHS 04/07/18 Gabapentin [Neurontin] 600 mg PO QHS 04/07/18 Isosorbide Mononitrate [Isosorbide 30 mg PO QHS 04/07/18 Mononitrate ER] Metoprolol Succinate [Toprol Xl] 50 mg PO QHS 04/07/18 Budesonide/Formoterol 80-4.5 2 puff INHALATION BID 04/08/18 [Symbicort 80-4.5 Mcg Inhaler] Enalapril Maleate [Vasotec] 10 mg PO BID 04/08/18 Fluticasone Furoate [Veramyst] 27.5 mcg NS BID 04/08/18 Gabapentin [Neurontin] 300 mg PO DINNER 04/08/18 Omeprazole [Prilosec] 20 mg PO BID 04/08/18 Surgical History: Surgical History (Last Reviewed 12/04/17 @ 14:41 by Costa Ashby MD) History of left heart catheterization (Chronic) Z98.890 May 2002 History of angioplasty of peripheral vessel (Chronic) Z98.62 1997 right leg Lives: Spouse/ Significant Other Smoking Status: Current every day smoker Tobacco Use: Cigarettes Alcohol: None Drugs: None - *Family History Paternal Family History: Family History (Last Reviewed 12/04/17 @ 14:41 by Costa Ashby MD) Father Myocardial infarction, Onset Age: 40 Cancer History Items: No pertinent history Review of Systems Constitutional: Reports: - - complete ROS negative except as documented in HPI Patient Problems: Active and Suspected Problems (Last Reviewed 12/04/17 @ 14:41 by Costa Ashby MD ) TIA (Acute) - Physical Exam General: Alert HEENT: Normocephalic Neck: Supple Lungs: Clear to auscultation Cardiovascular: Normal S1, Normal S2 Abdomen: Bowel Sounds Present Extremities: No cyanosis Skin: No rashes Musculoskeletal: No Tenderness to Palpation of Joints or Extremities Neurological: - - consious, alert, CN 2-12 grossly intact, power 5/5 all 4 extremities, no sensory loss, no cerebellar signs, no dysarthria, no aphasia, Reflexes + B/L B/S/T/K/A, gait deferred, NIHSS 0, mRS 0 at baseline Psych/Mental Status: Normal Affect Vital Signs Temp Pulse Resp BP Pulse Ox 97.7 F L 58 L 18 119/71 96 04/08/18 12:14 04/08/18 12:14 04/08/18 12:14 04/08/18 12:14 04/08/18 12:14 Oxygen Delivery Method Room Air Weight: 104.8 kg Body Mass Index (BMI) 33.1 Intake and Output for Last 24 Hours 04/06/18 04/07/18 04/08/18 23:59 23:59 23:59 Intake Total 1097 / 1097 Balance 1097 / 1097 Laboratory Tests Past 24 Hrs 04/08/18 04/08/18 04/08/18 01:37 01:37 01:45 Magnesium 2.1 Troponin I < 0.015 Triglycerides 177 Cholesterol 129 LDL Cholesterol 61 VLDL Cholesterol 35 HDL Cholesterol 33 L TSH 1.90 1.88 POC Glucose 04/08/18 04/08/18 12:09 07:04 POC Glucose 109 98 Assessment/Plan All Active Problems (Last Reviewed 12/04/17 @ 14:41 by Costa Ashby MD) TIA (Acute) URI, acute (Acute) The patient is a 72 year old CM with PMH HTN, CAD, PVD s/p angioplasty, Cluster WU, KAM on CPAP admitted with acute onset word finding difficulty and difficulty in walking. Per patient he was at the library yesterday (04/07/18) when he felt light headed, was able to speak but could not get the correct words out, felt both his legs were weak and felt he could not walk, episode lasted for about 15 minutes, had mild WU, at present per patient is back to his baseline. Denies LOC or witnessed seizures. Lives with , does drive, denies any falls, does not use cane or walker to ambulate, and does not need any assistance for ADLs. MRI brain done on admission reported nothing acute, CTA head/neck showed < 50% stenosis B/L ICA. LDL-61. Impression ? TIA Plan -ASA 325 mg PO once daily -On Cilostazol -On Lipitor 80 mg PO q hs at home -MRI brain- nothing acute -CTA head/neck reviewed, B/L ICA < 50% stenosis -Labs reviewed -LDL-61, await Hba1c -Await TTE -Check ESR -Stroke risk factors discussed and stroke education provided -PT/OT/ST -Fall precautions -GI/DVT prophylaxis -Follow up with Neurology as outpatient in 4-6 weeks -Please call with questions if any -Thank you for allowing us to participate in patient's care and management I spent 60 minutes taking history, doing physical examination, reviewing medical records, coordinating care and counseling patient and available family. Code Visit Inpatient E&M: [id number] Init Hosp L3
[2018-04-08 14:51] LABS: Erythrocyte Sedimentation Rate 5 mm/hr (0-20)
--- NOTE | 2018-04-08 15:10 | PCM.DC ---
- Discharge Diagnoses Current Active Problems: Current Active and Chronic Problems (Last Reviewed 12/04/17 @ 14:41 by Costa Ashby MD) (1) Possible TIA versus atypical complex migraine (2) CAD, PAD (3) Diplopia with L sided visual field, possibly secondary to Cataract, Glaucoma or Posterior ophthalmological disease (4) HTN (5) HLD (6) KAM (7) History of Cluster Headaches (8) Asthma (9) GERD (10) Obesity (11) Neuropathy (12) History of tobacco use (13) PVD You will use the following diet at home:: Cardiac Your food should be the consistency of: Regular Your liquids should be the consistency of: Regular/Thin Discharge Activity: - - Given ongoing double vision, advise no driving until re-evaluation and clearance per your Eye physician. May resume sexual activity in: No Restrictions Weight Bearing Status: Weight bearing as tolerated Call your doctor if you observe: Fever of 101 or Higher, Inability to urinate, Inability to have a bowel movement, Shortness of breath, Dizziness, Fainting spells, Chest pain, Uncontrolled pain, - - Recurrent neurological symptoms. Instructions: What Is a TIA?, Discharge Instructions for Transient Ischemic Attack (TIA), What Are Migraine and Tension Headaches?, Migraines and Cluster Headaches, Self-Care for Headaches, Understanding Headache Pain, Migraine Headache: Stages and Treatment, Preventing Migraine Headaches: Triggers Pending Tests on Discharge: Carotid US performed, read pending. Will be reviewed at your visit with Dr. Romero, Vascular Surgery. The CT of the vessels of the head and neck showed only mild to moderate disease that requires no immediate intervention. Neurologist amenable to outpatient assessment and following. ECHO performed, reading pending. May be reviewed with Neurology at follow-up. Allergies/Adverse Reactions: Allergies No Known Allergies Allergy (Verified 12/04/17 14:23) Medications to take at Discharge amitriptyline 10 mg tablet 25 mg PO QHS 10/10/17 cilostazol 50 mg tablet 100 mg PO DAILY 10/10/17 folic acid 20 mg capsule 1 mg PO DAILY 10/10/17 bfkjokqgwzf-mzuucjbsy-asjq041-hyal 750 mg-100 mg-125 mg-1.65 mg tablet 2 tab PO BID 10/10/17 loratadine 10 mg tablet 10 mg PO QDAY 10/10/17 modafinil 100 mg tablet 200 mg PO DAILY 10/10/17 uwpkxqvz-wow-dkrer acid 300 mcg-lycopene 600 mcg-lutein 300 mcg tablet 1 tab PO DAILY 10/10/17 nitroglycerin 0.3 mg sublingual tablet 0.3 mg SUBLINGUAL Q5M PRN 10/10/17 omega-3 fatty acids 1,000 mg capsule 1,000 mg PO QDAY 10/10/17 riboflavin (vitamin B2) 100 mg tablet 100 mg PO BID 10/10/17 gabapentin 300 mg capsule 300 mg PO DINNER 12/04/17 omeprazole 20 mg capsule,delayed release 20 mg PO QDAY 12/04/17 verapamil ER 120 mg 24 hr capsule,extended release 200 mg PO QHS cap 12/04/17 Albuterol IH (ProAir) [Proair Hfa] 1 - 2 puff INHALATION Q6H PRN PRN 04/07/18 Atorvastatin Calcium [Lipitor] 80 mg PO QHS 04/07/18 Gabapentin [Neurontin] 600 mg PO QHS 04/07/18 Isosorbide Mononitrate [Isosorbide Mononitrate ER] 30 mg PO QHS 04/07/18 Metoprolol Succinate [Toprol Xl] 50 mg PO QHS 04/07/18 Aspirin 325 mg PO DAILY@0800 #30 tab 04/08/18 Budesonide/Formoterol 80-4.5 [Symbicort 80-4.5 Mcg Inhaler] 2 puff INHALATION BID 04/08/18 Enalapril Maleate [Vasotec] 10 mg PO BID 04/08/18 Fluticasone Furoate [Veramyst] 27.5 mcg NS BID 04/08/18 Gabapentin [Neurontin] 300 mg PO DINNER 04/08/18 Omeprazole [Prilosec] 20 mg PO BID 04/08/18 The following prescriptions were given: Aspirin 325 mg PO DAILY@0800 #30 tab Primary Care Physician: Teo Lamb Chi, MD [Primary Care Provider] - Please follow up with your Primary Care Physician in: Follow-up within 3-5 days to review admission. Please Follow Up With: Fantasma Simons MD When: Follow-up 2-4 weeks. Please Follow Up With: Fabien Flores MD When: Follow-up as previously arranged. Please Follow Up With: Reinaldo Romero MD When: Please follow-up within 1-2 weeks to review carotid US, follow. Proposed Discharge Date: 04/08/18
--- NOTE | 2018-04-08 15:21 | DCINST_ITS ---
- Discharge Diagnoses Current Active Problems: Current Active and Chronic Problems (Last Reviewed 12/04/17 @ 14:41 by Costa Ashby MD) (1) Possible TIA versus atypical complex migraine (2) CAD, PAD (3) Diplopia with L sided visual field, possibly secondary to Cataract, Glaucoma or Posterior ophthalmological disease (4) HTN (5) HLD (6) KAM (7) History of Cluster Headaches (8) Asthma (9) GERD (10) Obesity (11) Neuropathy (12) History of tobacco use (13) PVD You will use the following diet at home:: Cardiac Your food should be the consistency of: Regular Your liquids should be the consistency of: Regular/Thin Discharge Activity: - - Given ongoing double vision, advise no driving until re- evaluation and clearance per your Eye physician. May resume sexual activity in: No Restrictions Weight Bearing Status: Weight bearing as tolerated Call your doctor if you observe: Fever of 101 or Higher, Inability to urinate, Inability to have a bowel movement, Shortness of breath, Dizziness, Fainting spells, Chest pain, Uncontrolled pain, - - Recurrent neurological symptoms. Instructions: What Is a TIA?, Discharge Instructions for Transient Ischemic Attack (TIA), What Are Migraine and Tension Headaches?, Migraines and Cluster Headaches, Self-Care for Headaches, Understanding Headache Pain, Migraine Headache: Stages and Treatment, Preventing Migraine Headaches: Triggers Pending Tests on Discharge: Carotid US performed, read pending. Will be reviewed at your visit with Dr. oRmero, Vascular Surgery. The CT of the vessels of the head and neck showed only mild to moderate disease that requires no immediate intervention. Neurologist amenable to outpatient assessment and following. ECHO performed, reading pending. May be reviewed with Neurology at follow-up. Allergies/Adverse Reactions: Allergies No Known Allergies Allergy (Verified 12/04/17 14:23) Medications to take at Discharge amitriptyline 10 mg tablet 25 mg PO QHS 10/10/17 cilostazol 50 mg tablet 100 mg PO DAILY 10/10/17 folic acid 20 mg capsule 1 mg PO DAILY 10/10/17 oqhuckrqkct-mhytrjsjp-vmfn999-hyal 750 mg-100 mg-125 mg-1.65 mg tablet 2 tab PO BID 10/10/17 loratadine 10 mg tablet 10 mg PO QDAY 10/10/17 modafinil 100 mg tablet 200 mg PO DAILY 10/10/17 uggsdjlg-nnq-wdzby acid 300 mcg-lycopene 600 mcg-lutein 300 mcg tablet 1 tab PO DAILY 10/10/17 nitroglycerin 0.3 mg sublingual tablet 0.3 mg SUBLINGUAL Q5M PRN 10/10/17 omega-3 fatty acids 1,000 mg capsule 1,000 mg PO QDAY 10/10/17 riboflavin (vitamin B2) 100 mg tablet 100 mg PO BID 10/10/17 gabapentin 300 mg capsule 300 mg PO DINNER 12/04/17 omeprazole 20 mg capsule,delayed release 20 mg PO QDAY 12/04/17 verapamil ER 120 mg 24 hr capsule,extended release 200 mg PO QHS cap 12/04/17 Albuterol IH (ProAir) [Proair Hfa] 1 - 2 puff INHALATION Q6H PRN PRN 04/07/18 Atorvastatin Calcium [Lipitor] 80 mg PO QHS 04/07/18 Gabapentin [Neurontin] 600 mg PO QHS 04/07/18 Isosorbide Mononitrate [Isosorbide Mononitrate ER] 30 mg PO QHS 04/07/18 Metoprolol Succinate [Toprol Xl] 50 mg PO QHS 04/07/18 Aspirin 325 mg PO DAILY@0800 #30 tab 04/08/18 Budesonide/Formoterol 80-4.5 [Symbicort 80-4.5 Mcg Inhaler] 2 puff INHALATION BID 04/08/18 Enalapril Maleate [Vasotec] 10 mg PO BID 04/08/18 Fluticasone Furoate [Veramyst] 27.5 mcg NS BID 04/08/18 Gabapentin [Neurontin] 300 mg PO DINNER 04/08/18 Omeprazole [Prilosec] 20 mg PO BID 04/08/18 The following prescriptions were given: Aspirin 325 mg PO DAILY@0800 #30 tab Primary Care Physician: Teo Lamb Chi, MD [Primary Care Provider] - Please follow up with your Primary Care Physician in: Follow-up within 3-5 days to review admission. Please Follow Up With: Fantasma Simons MD When: Follow-up 2-4 weeks. Please Follow Up With: Fabien Flores MD When: Follow-up as previously arranged. Please Follow Up With: Reinaldo Romero MD When: Please follow-up within 1-2 weeks to review carotid US, follow. Proposed Discharge Date: 04/08/18
--- NOTE | 2018-04-08 16:15 | PCM.DC.SUM ---
Discharge Date and Diagnosis - Problem List Patient Problems: Active and Suspected Problems (Last Reviewed 12/04/17 @ 14:41 by Costa Ashby MD) TIA (Acute) Date of Admission: 04/07/18 Date of Discharge: 04/08/18 - Primary Discharge Diagnosis Active and Suspected Problems (Last Reviewed 12/04/17 @ 14:41 by Costa Ashby MD) (1) Possible TIA versus atypical complex migraine (2) CAD, PAD (3) Diplopia with L sided visual field, possibly secondary to Cataract, Glaucoma or Posterior ophthalmological disease (4) HTN (5) HLD (6) KAM (7) History of Cluster Headaches (8) Asthma (9) GERD (10) Obesity (11) Neuropathy (12) History of tobacco use (13) PVD - Secondary Discharge Diagnosis Chronic Problems (Last Reviewed 12/04/17 @ 14:41 by Costa Ashby MD) History of inferior wall myocardial infarction (Chronic) Atherosclerotic heart disease of [place] coronary artery without angina pectoris (Chronic) per heart cath 06/03/2002 [facility] per Dr. Ashby History of left heart catheterization (Chronic) May 2002 History of angioplasty of peripheral vessel (Chronic) 1997 right leg Asthma (Chronic) Arthritis (Chronic) HTN (hypertension) (Chronic) Hospital Course and Treatment Imaging Results: CT/Brain/Head without Contrast IMPRESSION: Mild age-related changes of the brain. RAD/Chest 1 View IMPRESSION: Normal x-ray examination of the chest. MRI/Brain without Contrast IMPRESSION: No MRI evidence of acute or subacute ischemic infarct. No MRI evidence of remote cortical-based ischemic infarct or old lacunar infarcts. No MRI evidence of intracranial mass or acute intracranial abnormality. CT/CTA Head W/WO Contrast IMPRESSION: There is calcified plaque formation of the right cavernous carotid artery, with a mild stenosis (less than 50%). There is calcified plaque formation of the left cavernous carotid artery, with a mild stenosis (less than 50%). Normal [place] of [place] without a demonstrated aneurysm or hemodynamically significant stenosis. CT/CTA Neck W/WO Contrast IMPRESSION: There is moderate atherosclerotic plaque formation of the origin of the left internal carotid artery with an estimated stenosis of 50-69% stenosis. There is an irregular ulcerated plaque at the origin of the left internal carotid artery. There is 90% stenosis at the origin of the right vertebral artery. The degree of stenosis calculation is in accordance with NASCET criteria. Consults: [facility] - Neuro Operations: None Procedures: 2-D Echocardiogram Summary of Care Provided: Physical exam on day of discharge: General: Resting comfortably NAD Psych: A/Ox3 normal affect HEENT: [place] AT NC Neck: Supple NT CV: RRR no m/t/r/g/h Resp: CTA Abd: [id number] Soft NT no guarding or rigidity Ext: DP2+= no edema Skin: W/D normal turgor Lymph/Heme: No active bleeding or adenopathy Neuro: CN2-12 intact Hospital course: The patient is a 72 year old M with a hx of PAD, CAD, prior [place], asthma, former smoker, arthritis, who presented to the emergency room after developing sudden onset of inability to stand and inability to speak while he was at the library standing. He had to be helped into a wheelchair was brought to the emergency room. He had a CAT scan of the brain which was negative. He was felt to have strokelike symptoms and was admitted to the PCU neurology was consulted. He underwent MRI of the brain, CT of the head and neck. He had 90% stenosis of the right vertebral artery, 50-69% stenosis of the left internal carotid artery. These results were communicated to his vascular surgeon who operated on his legs, Dr. Romero, who felt that he can see the patient as an outpatient for follow-up with no urgent needs. Neurology felt the symptoms were suspicious for either TIA or complex migraine. Patient's aspirin was increased to 325. He is advised to continue Pletal. He will continue high dose Lipitor. Echocardiogram was unremarkable. He had no further symptoms as his symptoms had completely resolved overnight. He was advised to follow-up with his PCP, neurology, and vascular surgery. He is discharged home in stable condition. This patient was seen by Sunil Gamez PA-C under the supervision of Doctor Claudia. [] Discharge Diet: No Restrictions, Low fat/ Low Cholesterol, 2000 mg Sodium Diet Discharge Activity: Return to Normal Activity, - - Given ongoing double vision, advise no driving until re-evaluation and clearance per your Eye physician. May resume sexual activity in: No Restrictions Weight Bearing Status: Weight bearing as tolerated Call your doctor if you observe: Fever of 101 or Higher, Inability to urinate, Inability to have a bowel movement, Shortness of breath, Dizziness, Fainting spells, Chest pain, Uncontrolled pain, - - Recurrent neurological symptoms. Home Medications: Medications to take at Discharge amitriptyline 10 mg tablet 25 mg PO QHS 10/10/17 cilostazol 50 mg tablet 100 mg PO DAILY 10/10/17 folic acid 20 mg capsule 1 mg PO DAILY 10/10/17 dtayvfovboq-kfpyycckr-rlqa001-hyal 750 mg-100 mg-125 mg-1.65 mg tablet 2 tab PO BID 10/10/17 loratadine 10 mg tablet 10 mg PO QDAY 10/10/17 modafinil 100 mg tablet 200 mg PO DAILY 10/10/17 egxzxemq-mmv-izwxm acid 300 mcg-lycopene 600 mcg-lutein 300 mcg tablet 1 tab PO DAILY 10/10/17 nitroglycerin 0.3 mg sublingual tablet 0.3 mg SUBLINGUAL Q5M PRN 10/10/17 omega-3 fatty acids 1,000 mg capsule 1,000 mg PO QDAY 10/10/17 riboflavin (vitamin B2) 100 mg tablet 100 mg PO BID 10/10/17 gabapentin 300 mg capsule 300 mg PO DINNER 12/04/17 omeprazole 20 mg capsule,delayed release 20 mg PO QDAY 12/04/17 verapamil ER 120 mg 24 hr capsule,extended release 200 mg PO QHS cap 12/04/17 Albuterol IH (ProAir) [Proair Hfa] 1 - 2 puff INHALATION Q6H PRN PRN 04/07/18 Atorvastatin Calcium [Lipitor] 80 mg PO QHS 04/07/18 Gabapentin [Neurontin] 600 mg PO QHS 04/07/18 Isosorbide Mononitrate [Isosorbide Mononitrate ER] 30 mg PO QHS 04/07/18 Metoprolol Succinate [Toprol Xl] 50 mg PO QHS 04/07/18 Aspirin 325 mg PO DAILY@0800 #30 tab 04/08/18 Budesonide/Formoterol 80-4.5 [Symbicort 80-4.5 Mcg Inhaler] 2 puff INHALATION BID 04/08/18 Enalapril Maleate [Vasotec] 10 mg PO BID 04/08/18 Fluticasone Furoate [Veramyst] 27.5 mcg NS BID 04/08/18 Gabapentin [Neurontin] 300 mg PO DINNER 04/08/18 Omeprazole [Prilosec] 20 mg PO BID 04/08/18 Following Prescrptions Were Given to Patient: Aspirin 325 mg PO DAILY@0800 #30 tab Primary Care Physician: Teo Lamb Chi, MD [Primary Care Provider] - Please follow up with your Primary Care Physician in: Follow-up within 3-5 days to review admission. Please Follow Up With: Fantasma Simons MD When: Follow-up 2-4 weeks. Please Follow Up With: Fabien Flores MD When: Follow-up as previously arranged. Please Follow Up With: Reinaldo Romero MD When: Please follow-up within 1-2 weeks to review carotid US, follow. Patient Instructions: What Are Migraine and Tension Headaches?, What Is a TIA?, Migraines and Cluster Headaches, Self-Care for Headaches, Understanding Headache Pain, Migraine Headache: Stages and Treatment, Preventing Migraine Headaches: Triggers, Discharge Instructions for Transient Ischemic Attack (TIA) Disposition: Home Minutes spent on discharge:: 35 Patient Condition:: Stable Medical Necessity - Tobacco Use Smoking Status: Current every day smoker Tobacco Use: Cigarettes Meaningful Use Info Meaningful Use Diagnoses (Choose all that apply): None applicable
--- NOTE | 2018-04-08 16:27 | DS.PCM_ITS ---
Discharge Date and Diagnosis - Problem List Patient Problems: Active and Suspected Problems (Last Reviewed 12/04/17 @ 14:41 by Costa Ashby MD ) TIA (Acute) Date of Admission: 04/07/18 Date of Discharge: 04/08/18 - Primary Discharge Diagnosis Active and Suspected Problems (Last Reviewed 12/04/17 @ 14:41 by Costa Ashby MD ) (1) Possible TIA versus atypical complex migraine (2) CAD, PAD (3) Diplopia with L sided visual field, possibly secondary to Cataract, Glaucoma or Posterior ophthalmological disease (4) HTN (5) HLD (6) KAM (7) History of Cluster Headaches (8) Asthma (9) GERD (10) Obesity (11) Neuropathy (12) History of tobacco use (13) PVD - Secondary Discharge Diagnosis Chronic Problems (Last Reviewed 12/04/17 @ 14:41 by Costa Ashby MD) History of inferior wall myocardial infarction (Chronic) Atherosclerotic heart disease of [place] coronary artery without angina pectoris (Chronic) per heart cath 06/03/2002 [facility] per Dr. Ashby History of left heart catheterization (Chronic) May 2002 History of angioplasty of peripheral vessel (Chronic) 1997 right leg Asthma (Chronic) Arthritis (Chronic) HTN (hypertension) (Chronic) Hospital Course and Treatment Imaging Results: CT/Brain/Head without Contrast IMPRESSION: Mild age-related changes of the brain. RAD/Chest 1 View IMPRESSION: Normal x-ray examination of the chest. MRI/Brain without Contrast IMPRESSION: No MRI evidence of acute or subacute ischemic infarct. No MRI evidence of remote cortical-based ischemic infarct or old lacunar infarcts. No MRI evidence of intracranial mass or acute intracranial abnormality. CT/CTA Head W/WO Contrast IMPRESSION: There is calcified plaque formation of the right cavernous carotid artery, with a mild stenosis (less than 50%). There is calcified plaque formation of the left cavernous carotid artery, with a mild stenosis (less than 50%). Normal [place] without a demonstrated aneurysm or hemodynamically significant stenosis. CT/CTA Neck W/WO Contrast IMPRESSION: There is moderate atherosclerotic plaque formation of the origin of the left internal carotid artery with an estimated stenosis of 50-69% stenosis. There is an irregular ulcerated plaque at the origin of the left internal carotid artery. There is 90% stenosis at the origin of the right vertebral artery. The degree of stenosis calculation is in accordance with NASCET criteria. Consults: [facility] - Neuro Operations: None Procedures: 2-D Echocardiogram Summary of Care Provided: Physical exam on day of discharge: General: Resting comfortably NAD Psych: A/Ox3 normal affect HEENT: [place] AT NC Neck: Supple NT CV: RRR no m/t/r/g/h Resp: CTA Abd: [id number] Soft NT no guarding or rigidity Ext: DP2+= no edema Skin: W/D normal turgor Lymph/Heme: No active bleeding or adenopathy Neuro: CN2-12 intact Hospital course: The patient is a 72 year old M with a hx of PAD, CAD, prior [place], asthma, former smoker, arthritis, who presented to the emergency room after developing sudden onset of inability to stand and inability to speak while he was at the library standing. He had to be helped into a wheelchair was brought to the emergency room. He had a CAT scan of the brain which was negative. He was felt to have strokelike symptoms and was admitted to the PCU neurology was consulted. He underwent MRI of the brain, CT of the head and neck. He had 90% stenosis of the right vertebral artery, 50-69% stenosis of the left internal carotid artery. These results were communicated to his vascular surgeon who operated on his legs, Dr. Romero, who felt that he can see the patient as an outpatient for follow-up with no urgent needs. Neurology felt the symptoms were suspicious for either TIA or complex migraine. Patient's aspirin was increased to 325. He is advised to continue Pletal. He will continue high dose Lipitor. Echocardiogram was unremarkable. He had no further symptoms as his symptoms had completely resolved overnight. He was advised to follow-up with his PCP, neurology, and vascular surgery. He is discharged home in stable condition. This patient was seen by Sunil Gamez PA-C under the supervision of Doctor Claudia. [] Discharge Diet: No Restrictions, Low fat/ Low Cholesterol, 2000 mg Sodium Diet Discharge Activity: Return to Normal Activity, - - Given ongoing double vision, advise no driving until re-evaluation and clearance per your Eye physician. May resume sexual activity in: No Restrictions Weight Bearing Status: Weight bearing as tolerated Call your doctor if you observe: Fever of 101 or Higher, Inability to urinate, Inability to have a bowel movement, Shortness of breath, Dizziness, Fainting spells, Chest pain, Uncontrolled pain, - - Recurrent neurological symptoms. Home Medications: Medications to take at Discharge amitriptyline 10 mg tablet 25 mg PO QHS 10/10/17 cilostazol 50 mg tablet 100 mg PO DAILY 10/10/17 folic acid 20 mg capsule 1 mg PO DAILY 10/10/17 nfbrpbothrt-atgydxrpp-jwun031-hyal 750 mg-100 mg-125 mg-1.65 mg tablet 2 tab PO BID 10/10/17 loratadine 10 mg tablet 10 mg PO QDAY 10/10/17 modafinil 100 mg tablet 200 mg PO DAILY 10/10/17 aihbxror-vgd-akyqg acid 300 mcg-lycopene 600 mcg-lutein 300 mcg tablet 1 tab PO DAILY 10/10/17 nitroglycerin 0.3 mg sublingual tablet 0.3 mg SUBLINGUAL Q5M PRN 10/10/17 omega-3 fatty acids 1,000 mg capsule 1,000 mg PO QDAY 10/10/17 riboflavin (vitamin B2) 100 mg tablet 100 mg PO BID 10/10/17 gabapentin 300 mg capsule 300 mg PO DINNER 12/04/17 omeprazole 20 mg capsule,delayed release 20 mg PO QDAY 12/04/17 verapamil ER 120 mg 24 hr capsule,extended release 200 mg PO QHS cap 12/04/17 Albuterol IH (ProAir) [Proair Hfa] 1 - 2 puff INHALATION Q6H PRN PRN 04/07/18 Atorvastatin Calcium [Lipitor] 80 mg PO QHS 04/07/18 Gabapentin [Neurontin] 600 mg PO QHS 04/07/18 Isosorbide Mononitrate [Isosorbide Mononitrate ER] 30 mg PO QHS 04/07/18 Metoprolol Succinate [Toprol Xl] 50 mg PO QHS 04/07/18 Aspirin 325 mg PO DAILY@0800 #30 tab 04/08/18 Budesonide/Formoterol 80-4.5 [Symbicort 80-4.5 Mcg Inhaler] 2 puff INHALATION BID 04/08/18 Enalapril Maleate [Vasotec] 10 mg PO BID 04/08/18 Fluticasone Furoate [Veramyst] 27.5 mcg NS BID 04/08/18 Gabapentin [Neurontin] 300 mg PO DINNER 04/08/18 Omeprazole [Prilosec] 20 mg PO BID 04/08/18 Following Prescrptions Were Given to Patient: Aspirin 325 mg PO DAILY@0800 #30 tab Primary Care Physician: Teo Lamb Chi, MD [Primary Care Provider] - Please follow up with your Primary Care Physician in: Follow-up within 3-5 days to review admission. Please Follow Up With: Fantasma Simons MD When: Follow-up 2-4 weeks. Please Follow Up With: Fabien Flores MD When: Follow-up as previously arranged. Please Follow Up With: Reinaldo Romero MD When: Please follow-up within 1-2 weeks to review carotid US, follow. Patient Instructions: What Are Migraine and Tension Headaches?, What Is a TIA? , Migraines and Cluster Headaches, Self-Care for Headaches, Understanding Headache Pain, Migraine Headache: Stages and Treatment, Preventing Migraine Headaches: Triggers, Discharge Instructions for Transient Ischemic Attack (TIA) Disposition: Home Minutes spent on discharge:: 35 Patient Condition:: Stable Medical Necessity - Tobacco Use Smoking Status: Current every day smoker Tobacco Use: Cigarettes Meaningful Use Info Meaningful Use Diagnoses (Choose all that apply): None applicable
[2018-04-08] MEDS: Gabapentin 300 MG Capsule PO (16:48)
== END 2018-04-08 15:16 | disposition home or self-care (01) ==
LOC: ED 22:14 → PCU 23:49
PROVIDERS: Psychiatry & Neurology Neurology; Admitting Provider Internal Medicine; Emergency Provider Emergency Medicine; Family Provider Family Medicine Geriatric Medicine; PCP Family Medicine Geriatric Medicine; Visit Provider Family Medicine
DX: R53.1 Weakness (principal); R47.01 Aphasia; I25.10 Atherosclerotic heart disease of native coronary artery without angina pectoris; I10 Essential (primary) hypertension; K21.9 Gastro-esophageal reflux disease without esophagitis; G47.33 Obstructive sleep apnea (adult) (pediatric); E78.5 Hyperlipidemia, unspecified; J45.909 Unspecified asthma, uncomplicated; H53.2 Diplopia; Z87.891 Personal history of nicotine dependence; E66.9 Obesity, unspecified; Z68.33 Body mass index [BMI] 33.0-33.9, adult; Z71.3 Dietary counseling and surveillance; I73.9 Peripheral vascular disease, unspecified; G62.9 Polyneuropathy, unspecified; I65.22 Occlusion and stenosis of left carotid artery; I25.2 Old myocardial infarction; M19.90 Unspecified osteoarthritis, unspecified site; R47.81 Slurred speech; Z79.899 Other long term (current) drug therapy; Z79.82 Long term (current) use of aspirin
CPT/HCPCS: 36415; 70450; 70496; 70498; 70551; 71045; 80048; 80061; 82962; 83036; 83735; 84443; 84484; 85025; 85610; 85652; 85730; 93005; 93306; 93880; 94640; 96360; 96361; 96372; 97162; 97165; 99218; 99285; J7030; Q9967; A4216; G0378

== ENCOUNTER → 2018-05-06 13:19 | Outpatient (CLI) | payer MEDICARE, OTHER, SELFPAY ==
--- NOTE | 2018-05-06 13:30 | MRI_ITS ---
STUDY: MRI BRAIN WITHOUT CONTRAST REASON FOR EXAM: Male, 72 years old. Right arm weakness TECHNIQUE: Standardized multiplanar fat and water weighted pulse sequences were obtained. COMPARISON: April 08, 2018 FINDINGS: Normal size of the ventricles and extra-axial spaces for the patient's age. Minor periventricular white matter ischemic changes without evidence for acute infarct.. Normal bilateral basal ganglia. Tiny perivascular space within the left posterior thalamus.. There is no extra-axial fluid accumulation. Normal flow voids within the major intracranial circulation suggesting patency by spin echo criteria. Normal sella turcica, pituitary gland, infundibular stalk, optic chiasm and hypothalamus. Normal tectal plate and pineal gland. Normal midbrain, tori and medulla. Normal cerebellum. Normal basal cisterns. Normal bilateral temporal bones. Normal bilateral internal auditory canals. No demonstrated orbital abnormality, within the constraints of a routine brain study. Mucous retention cyst in the left maxillary sinus. Normal calvarium and skull base. Normal visualized soft tissue structures. Normal visualized upper cervical spine. No significant change since prior exam MRI/Brain without Contrast IMPRESSION: Minor periventricular white matter ischemic changes without evidence for acute infarct. Electronically Signed: Fabien Gonzalez MD at 18:40 EDT , Service support ,
== END ==
PROVIDERS: Family Provider Family Medicine Geriatric Medicine; PCP Family Medicine Geriatric Medicine; Visit Provider Psychiatry & Neurology Neurology
DX: R20.0 Anesthesia of skin (principal); I65.29 Occlusion and stenosis of unspecified carotid artery; R47.9 Unspecified speech disturbances; Z86.73 Personal history of transient ischemic attack (TIA), and cerebral infarction without residual deficits
CPT/HCPCS: 70551

== ENCOUNTER 2018-05-18 05:30 | Inpatient (IN) | payer MEDICARE, OTHER, SELFPAY ==
[2018-05-11 10:14] VITALS: BP 126/73; PULSE 75; RESP 17; TEMP 37.1; O2SAT 97; BMI 32.5
[2018-05-18] VITALS (15 sets, daily range): BP systolic 108–140; BP diastolic 55–82; PULSE 51–77; RESP 14–18; TEMP 36.4–36.8; O2SAT 93–100; BMI 32.5
--- NOTE | 2018-05-18 06:54 | PCM.OPRPT ---
Problem List (1) TIA (transient ischemic attack) Status: Acute (2) Carotid stenosis, bilateral Status: Acute Report of Operation Date of Procedure: 05/18/18 Pre-Operative Diagnosis: Ulcerative stenosis left proximal internal carotid with transient ischemic attack Post-Operative Diagnosis: Same Surgery/Procedure Performed:: Right radial arterial line placement. Left carotid endarterectomy with bovine patch angioplasty Description of Surgical Findings:: Timeout and informed consent was obtained. At the bedside 72-year-old gentleman had an Nas test performed demonstrating adequate ulnar flow on the right. The wrist was gently extended. Prepped with Betadine. 1% lidocaine was instilled as a local anesthetic. A 20-gauge Angiocath was inserted but could not get wire advancement. Held pressure. I then used a second 20-gauge Angiocath gained access was performed Seldinger wire advancement. Connected to pressure tubing. Was sutured in place with 3-0 silk. OpSite dressing was applied. Abena wrap was applied. The hand was viable without apparent complication. Good waveform was obtained no apparent complication. Patient was subsequently taken to the operating for planned definitive surgery. Timeout and informed consent was obtained. The patient was taken to the operating room. He was placed supine on the table. He underwent general endotracheal intubation anesthesia. Ancef 2 g given intravenously. The left neck was sterilely prepped and draped. An oblique incision was made along the anterior border the sternocleidomastoid sharp dissection carried down through the substance tissue. The platysma was incised. The sternocleidomastoid was reflected laterally. Dissection performed down upon the internal jugular vein. A very large facial vein was circumferentially dissected free and then double ligated with 3-0 Vicryl ligatures. The carotid bulb was relatively high in the neck. Dissection performed down upon the common carotid and vagus nerve identified and protected the ansa cervicalis was identified and had to be ligated to allow for visualization. Dissection was performed on the carotid bulb and then the proximal internal carotid artery. Eventually circumferential dissection was achieved. At this point the patient received 10,000 units of heparin while manipulating the internal carotid. FSE loop of Dacron tape was placed. Circumferential control was obtained of the external carotid with a vessel loop. The superior thyroid was cleared with a [place] tie of 3-0 Vicryl. Circumferential control of the proximal common carotid was obtained with a Dacron [place] tie. After adequate circling time peripheral vascular clamps are placed on the internal common and external carotid. Because the internal carotid was so proximally placed I used a Lara clamp for that. 11 blade was used to inject arteriotomy. A #10 USCI style shunt was placed cephalad and proximally. I did have some requirement and gently sliding that in place. Secured it with the room L. Then performed a in endarterectomy at the layer of the external elastic lamina. Plaque was sharply transected proximally. There is evidence of plaque hemorrhage right carotid bulb with a deep plaque ulceration. Dissection performed cephalad with the plaque continued to extend posteriorly. I was able to get a section to nicely feathered free. An inversion endarterectomy was performed of the external carotid. Further plaque was removed forcep dissection. The vessel was irrigated. A 8 x 0.8 cm piece of bovine patch was shaped to form and a patch angioplasty was created with running 6-0 Prolene. A couple repair sutures of interrupted 7-0 Prolene was used. The shunt was removed the vessel was irrigated patch angioplasty was completed. Initial flow was instituted from the external carotid common carotid and find the internal carotid. After placement of the 7-0 sutures hemostasis was nicely intact. The patient did receive 20 mg of protamine his reversal. He received additional 1000 of heparin at 20 minutes into the procedure. Hemostasis was intact. The platysma was approximated with running 3-0 Vicryl. Skin edges proximate running septic or 5-0 Vicryl. Steri-Strips Telfa and tape dressing applied. Sponge and instrument and needle counts were reported to the surgeon to be correct. He was allowed to awaken on the table. Neurologically intact. He was taken to the recovery area in such condition without apparent complication. Blood loss 300cc. Specimen is plaque. Drains none. Reinaldo Romero M.D., F.A.C.S. Type of Anesthesia:: General Anesthesiologist: Christ Jonas
--- NOTE | 2018-05-18 07:02 | DCINST_ITS ---
<Reinaldo Romero - Last Filed: 05/18/18 07:01> Discharge Diet: Light diet - advance as tolerated - if you have questions about your diet instructions, please talk to you doctor. Discharge Activity: May Not Drive - for 1 week or while taking narcotic pain medicine. May shower in (days): 3 - You may shower on Friday Lifting Restrictions: 10 pounds Call your doctor if your incision/area has: Continuous Slow Oozing, Sudden Increased Bleeding, Increased Pain/ Swelling, Increased Redness, Foul Smelling Discharge Call your doctor if you observe: Fever of 101 or Higher Suture Line Care: Avoid Pulling/Pushing, Avoid Pinching/Bending Additional Dressing/Incision Instructions:: You may protect the incision with gauze and tape dressing as needed. Please leave the Steri-Strips in place for 1 week. Allergies/Adverse Reactions: Allergies No Known Allergies Allergy (Verified 05/11/18 09:58) Medications to take at Discharge amitriptyline 10 mg tablet 25 mg PO QHS 10/10/17 cilostazol 50 mg tablet 100 mg PO DAILY 10/10/17 folic acid 20 mg capsule 1 mg PO DAILY 10/10/17 ktfgdvephkq-nsovfmcfw-wbah907-hyal 750 mg-100 mg-125 mg-1.65 mg tablet 1 tab PO BID 10/10/17 loratadine 10 mg tablet 10 mg PO QDAY 10/10/17 modafinil 100 mg tablet 200 mg PO DAILY 10/10/17 cxufhrmi-wxx-yhehd acid 300 mcg-lycopene 600 mcg-lutein 300 mcg tablet 1 tab PO DAILY 10/10/17 nitroglycerin 0.3 mg sublingual tablet 0.3 mg SUBLINGUAL Q5M PRN 10/10/17 omega-3 fatty acids 1,000 mg capsule 1,000 mg PO QDAY 10/10/17 riboflavin (vitamin B2) 100 mg tablet 100 mg PO BID 10/10/17 gabapentin 300 mg capsule 300 mg PO DINNER 12/04/17 verapamil ER 120 mg 24 hr capsule,extended release 200 mg PO QHS cap 12/04/17 Albuterol IH (ProAir) [Proair Hfa] 1 - 2 puff INHALATION Q6H PRN PRN 04/07/18 Atorvastatin Calcium [Lipitor] 80 mg PO QHS 04/07/18 Gabapentin [Neurontin] 600 mg PO QHS 04/07/18 Isosorbide Mononitrate [Isosorbide Mononitrate ER] 30 mg PO QHS 04/07/18 Metoprolol Succinate [Toprol Xl] 50 mg PO QHS 04/07/18 Enalapril Maleate [Vasotec] 10 mg PO BID 04/08/18 Omeprazole [Prilosec] 20 mg PO BID 04/08/18 Aspirin 81 mg PO DAILY@0800 05/11/18 Beclomethasone Diprop Inhaler [Qvar 80 Mcg Inhaler] 1 puff INHALATION BID Hydrocodone Bitart/Apap 5-325 [[place] 5MG-325MG] 1 tablet PO Q6H PRN PRN 3 Days # 8 tablet 05/18/18 The following prescriptions were given: Hydrocodone Bitart/Apap 5-325 [[place] 5MG-325MG] 1 tablet PO Q6H PRN PRN 3 Days # 8 tablet PRN Reason: Pain Primary Care Physician: Teo Lamb Chi, MD [Primary Care Provider] - Test Results: Test results from this visit will be discussed in further detail at your follow- up appointment, if applicable. Please Follow Up With: Reinaldo Romero MD - [phone] When: Call to make an appointment to be seen in about 10 days. <Rowan Marcelo - Last Filed: 05/19/18 09:01> Test Results: Test results from this visit will be discussed in further detail at your follow- up appointment, if applicable.
--- NOTE | 2018-05-18 07:15 | PLAQ_PTH ---
PATIENT: ERROL RIVERA LOC: MS2 U#:[id number] AGE/SX: 72/M ROOM: [facility] RE05/18/[address]: Dr. Reinaldo Romero MD : 1945 BED: 1 DIS: 05/19/2018 SPEC #: [id number] RECD: 05/18/18 11:58 STATUS: NEHA REGoldy #: [id number] [place]: 05/18/18 07:[address]: Reinaldo Romero DEPT: SURGICAL PATHOLOGY RECD BY: Braulio Denney ENTERED: 05/18/18 12:22 SP TYPE: PLAQUE OTHR DR: Dr. Teo Lamb MD Tissues: PLAQUE Procedures: Decalcification bone/plaque Surgery Specimen Level III HEADER OPERATION: Carotid endarterectomy, left PRE-OP DIAGNOSIS: Ulcerative stenosis left proximal internal carotid with TIA TISSUE SUBMITTED: Left carotid artery plaque MICROSCOPIC DIAGNOSIS Left carotid artery plaque, endarterectomy: Atherosclerotic tissue with focal calcifications (plaque). AMARIS:donato 05/20/18 GROSS DESCRIPTION Received in fixative is one container labeled with the patient's name and designated left carotid artery plaque. The specimen consists of a previously opened tubular piece of farrar, indurated tissue measuring 4.5 cm in length and up to 1 cm in diameter. The specimen cuts with gritty sensation. The entire specimen is submitted in one cassette after decalcification. / AMARIS:donato 05/18/18 TC:5 CPT: 44753, 96029
[2018-05-18] MEDS: Cefazolin 2 GM in 0.9% Normal Saline 100 ML IV (07:25)
[2018-05-18] MEDS: Heparin Injection (Vial) 5,000 UNIT/ML VIAL 5000 UNIT (09:03)
[2018-05-18] MEDS: Bupivacaine Mpf 0.5% 30 ML VIAL (09:31)
--- NOTE | 2018-05-18 15:01 | NURSING ---
pts home med, verapamil hcl 200mg sent to pharmacy for verification
[2018-05-18] MEDS: Ondansetron 4 MG/2 ML Vial (15:03)
[2018-05-18] MEDS: 0.9% Normal Saline 1,000 ML 30 ML IV (15:58)
[2018-05-18] MEDS: Cefazolin 1 GM/50 ML BAG IV ×2 (15:58→23:15)
[2018-05-18] MEDS: Morphine 2 MG/ML Syringe IV (15:59)
--- NOTE | 2018-05-18 18:15 | PCM.PN.BLA ---
Progress Note Pt without complaint Still on oxygen Hasnt voided Neuro unchanged from preop Continue care and mobilize pt
[2018-05-18] MEDS: Gabapentin 300 MG Capsule PO (20:12)
[2018-05-18] MEDS: Acetaminophen 325 MG Tablet 650 MG PO (20:13)
[2018-05-18] MEDS: Amitriptyline 25 MG Tablet PO (22:05)
[2018-05-18] MEDS: Atorvastatin Calcium 80 MG Tablet PO (22:05)
[2018-05-18] MEDS: Pantoprazole Sodium 20 MG Tablet PO (22:05)
[2018-05-18] MEDS: Gabapentin 600 MG Tablet PO (22:05)
[2018-05-18] MEDS: Isosorbide Mononitrate 30 MG Tablet PO (22:05)
[2018-05-18] MEDS: Metoprolol(XL)Succ 50 MG Tablet PO (22:05)
[2018-05-18] MEDS: Lisinopril 10 MG Tablet PO (22:05)
[2018-05-19 04:00] VITALS: BP 122/74; PULSE 65; RESP 16; TEMP 36.7; O2SAT 97
--- NOTE | 2018-05-19 05:28 | PCM.PN.SRG ---
Patient Problems: Active and Suspected Problems (Last Reviewed 04/23/18 @ 15:13 by Gracia Camarena) TIA (transient ischemic attack) (Acute) Carotid stenosis, bilateral (Acute) Subjective: Pt notes no neuro changes Posterior neck pain improved Pt has been able to void - Physical Exam Neck: - - supple, clean left neck incision Vital Signs Temp Pulse Resp BP Pulse Ox 98.0 F 65 16 122/74 H 97 05/19/18 04:00 05/19/18 04:00 05/19/18 04:00 05/19/18 04:00 05/19/18 04:00 Oxygen Flow Rate (L/min) 2 Oxygen Delivery Method Nasal Cannula Weight: 226 lb 10.163 oz Body Mass Index (BMI) 32.5 Finger Stick Blood Glucose 135 Intake and Output for Last 24 Hours 05/17/18 05/18/18 05/19/18 23:59 23:59 23:59 Intake Total 2384 / 2384 Output Total 825 / 825 475 / 475 Balance 1559 / 1559 -475 / -475 Medical Necessity - Tobacco Use Smoking Status: Former smoker Tobacco Use: Cigarettes Assessment/Plan All Active Problems (Last Reviewed 04/23/18 @ 15:13 by Gracia Camarena) TIA (transient ischemic attack) (Acute) Carotid stenosis, bilateral (Acute) TIA (Acute) URI, acute (Acute) Plan discharge this a.m. after pt mobilizes. 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
[2018-05-19 07:15] VITALS: O2SAT 96
[2018-05-19] MEDS: Multivitamins,Ther W-Minerals Tablet 1 TABLET PO (08:06)
[2018-05-19] MEDS: Aspirin 81 MG TAB.CHEW PO (08:07)
[2018-05-19] MEDS: Acetaminophen 325 MG Tablet 650 MG PO (08:07)
[2018-05-19] MEDS: Folic Acid 1 MG Tablet PO (08:07)
[2018-05-19 08:08] VITALS: BP 116/69; PULSE 71; RESP 16; TEMP 36.3; O2SAT 95
[2018-05-19] MEDS: Loratadine 10 MG Tablet PO (11:13)
[2018-05-19] MEDS: Lisinopril 10 MG Tablet PO (11:13)
[2018-05-19] MEDS: Pantoprazole Sodium 20 MG Tablet PO (11:14)
[2018-05-19] MEDS: Cilostazol 50 MG Tablet 100 MG PO (11:14)
[2018-05-19] MEDS: Omega-3 Acid Ethyl Esters 1 GM Capsule PO (11:14)
--- NOTE | 2018-05-19 11:49 | CASEMGMT ---
CM INITIAL ASSESSMENT: Home: Patient states he lives with his in a two story home. Patient denies trouble ambulating steps. Patient states, at baseline, he drives and is independent. HHS/Aides: Denies having and also denies need. DME: Patient states he has installed grab bars throughout the house. Denies further needs. Home Oxygen: Patient states he has a concentrator and BiPAP machine. Walking oxygen test ordered prior to discharge. Patient is resting on room air at this time, appearing comfortable. [facility]acy: [facility] Advance Directives: Denies and declines assistance. PCP: Dr. Lamb Specialists: Dr. Ashby, Dr. Romero, Dr. Simons (has not had an appt yet). DC Plan: Home, no needs anticipated. Walking oxygen test pending.
== END 2018-05-19 13:07 | disposition home or self-care (01) | DRG 39 ==
LOC: ACINP 05:31 → MS3 07:57 → MS2 12:25
PROVIDERS: Admitting Provider Surgery; Family Provider Family Medicine Geriatric Medicine; PCP Family Medicine Geriatric Medicine; Visit Provider Surgery
PROC: (CPT 35301; principal; 2018-05-18 06:55)
DX: I65.23 Occlusion and stenosis of bilateral carotid arteries (principal); I25.10 Atherosclerotic heart disease of native coronary artery without angina pectoris; I10 Essential (primary) hypertension; J45.909 Unspecified asthma, uncomplicated; E78.00 Pure hypercholesterolemia, unspecified; M19.90 Unspecified osteoarthritis, unspecified site; K21.9 Gastro-esophageal reflux disease without esophagitis; G47.30 Sleep apnea, unspecified; Z79.82 Long term (current) use of aspirin; Z79.899 Other long term (current) drug therapy; I25.2 Old myocardial infarction; Z86.73 Personal history of transient ischemic attack (TIA), and cerebral infarction without residual deficits; Z86.010 Personal history of colon polyps; Z87.19 Personal history of other diseases of the digestive system; Z87.891 Personal history of nicotine dependence
CPT/HCPCS: 88304; 88311; J7030; J7040; J7120; J2405

== ENCOUNTER → 2018-06-15 08:58 | Outpatient (CLI) | payer MEDICARE, OTHER, SELFPAY | PROVIDERS: Family Provider Family Medicine Geriatric Medicine; PCP Family Medicine Geriatric Medicine; Visit Provider Physician Assistant | DX: I65.23 Occlusion and stenosis of bilateral carotid arteries (principal) | CPT/HCPCS: 93882 ==

== ENCOUNTER 2018-06-20 13:37 | Emergency (ER) | payer MEDICARE, OTHER, SELFPAY ==
[2018-06-20 13:38] VITALS: BP 139/75; PULSE 91; RESP 18; TEMP 36.8; O2SAT 96; BMI 32.3
[2018-06-20 14:18] VITALS: BP 128/70; PULSE 80; RESP 14; O2SAT 98
[2018-06-20 15:35] LABS: Absolute Lymphocyte Count 1.99 X10^3/ul (0.83-4.51); Absolute Neutrophil Count 3.4 X10^3/uL (2.0-7.7); Basophil# 0.01 X10^3/uL; Basophil% 0.2 % (0-1); Eosinophil# 0.16 X10^3/uL; Eosinophils% 2.6 % (0-5); Hematocrit 42.8 % (40-54); Hemoglobin 14.6 g/dl (13.0-16.5); Lymphocyte # 1.99 X10^3/ul (4.0); Lymphocyte % 32.7 % (19-41); Mean Corp Hgb Conc 34.1 g/gl (32-36); Mean Corpuscular Hgb 32.2 pg (27.0-32.0); Mean Corpuscular Volume 94.3 fL (80-94); Monocyte# 0.57 X10^3/uL; Monocyte% 9.4 % (0-10); Neutrophil # 3.35 X10^3/uL (2.7-7.7); Neutrophil % 54.9 % (47-70); Platelet Count 204 K/mm3 (150-450); RBC Distribution Width CV 12.6 % (11.6-14.6); RBC Distribution Width SD 42.7 fl (35.1-43.9); Red Blood Count 4.54 M/mm3 (4.6-6.2); White Blood Count 6.1 K/mm3 (4.4-11.0)
[2018-06-20 15:37] LABS: POSITIVE COUNT NO; POSITIVE DIFFERENTIAL NO; POSITIVE MORPHOLOGY NO; Partial Thromboplast Time 29.1 Seconds (24.1-36.2)
[2018-06-20 15:41] LABS: Anion Gap 8 (5-15); BUN 15 mg/dL (7-18); BUN/Creat Ratio 14.2 RATIO (10-20); Calcium,Total 8.7 mg/dL (8.5-10.1); Chloride 104 mmol/L (98-107); Creatinine, Serum 1.06 mg/dL (0.70-1.30); EST Glomerular Filtration Rate 73 mL/min (>60); Est Glom Filt Rate - Afr Amer 88 mL/min (>60); Estimated Creatinine Clearance 65.04 ml/min; Glucose 102 mg/dL (74-106); Potassium 4.1 mmol/L (3.5-5.1); Sodium Level 140 mmol/L (136-145)
[2018-06-20] MEDS: 0.9% Normal Saline 1,000 ML 1000 ML IV (15:43)
[2018-06-20 16:01] VITALS: BP 130/78; PULSE 80; RESP 14; O2SAT 98
[2018-06-20 17:09] LABS: Bacteria 0 SEEN /hpf (None Seen); Mucous, Urine 0 SEEN /hpf (<or=2+); White Blood Cells 0 SEEN /hpf (0-5)
[2018-06-20 17:35] LABS: Color, Urine Yellow (Yellow); Glucose, Dipstick Normal (Normal); Ketone-Dipstick Negative (Negative); Leukocyte Esterase-Dipstick Negative /ul (Negative); Nitrite-Dipstick Negative (Negative); Occult Blood-Urine 150 /ul (Negative); Protein-Dipstick Negative (Negative); Urine Bilirubin Dipstick Negative (Negative); Urine Clarity Sl. Cloudy (Clear); Urine Urobilinogen Normal (Normal)
[2018-06-20 17:56] LABS: Red Blood Cells-Urine 10-25 SEEN /hpf (0-5); Squamous Epithelial Cells - UA 0-5 SEEN /hpf (0-5)
--- NOTE | 2018-06-20 18:04 | ED.DCSUM_ITS ---
- ER Visit Summary Date of Service: 06/20/18 Chief Complaint: Hematuria History of Present Illness: The patient is a [address] Lamb. He is on aspirin and Pletal. He reports approximately 2 hours ago he noticed that he had blood in his urine. He denies any trauma. No fall. He reports he feels as though he is emptying his bladder normally. He denies any fever or chills. No dysuria or frequency. Physical Examination: Vitals: Stable. Afebrile. General: Well-nourished and well-developed. Head: Normocephalic atraumatic. Neck: Supple, no lymphadenopathy. No JVD. Nontender. Cardiovascular: Regular rate and rhythm. No murmurs. Respiratory: No respiratory distress. Clear to auscultation bilaterally. Abdominal: Soft, nontender, nondistended, normal bowel sounds. No guarding, rebound, or peritoneal signs. : Normal circumcised male. No trauma or source of bleeding. Back: Nontender. Extremities: Nontender, no edema. Skin: Normal color, no rash. Neurologic: Alert and oriented ?3. Cranial nerves II through XII are intact. Normal strength and sensation. Psych: Normal affect. Test Results: CBC is normal. Chem-7 is normal. Coags are normal. Urine has 10 -25 red blood cells and no bacteria. Clinical Impression(s) from Imaging Studies Abdomen/Pelvis CT 06/20/18 15:08 IMPRESSION: 1. No acute process. No renal stones or obstructive uropathy. 2. A 6 mm nodule in the right middle lobe, likely postinflammatory. Based on Fleischner Society criteria, follow-up at 6-12 months is advised. 3. Small hiatal hernia. Electronically Signed: Shanta Jj MD at 16:20 EDT Tel , Service support , Emergency Department Course and Treatment: Patient was treated with Keflex p.o. and his urine was sent for culture. Treatment Plan: Patient will be discharged on Keflex. Instructed to follow-up his primary care physician and/or Dr. Gill in 1 week for repeat exam. He does understand that if the hematuria does not clear that he will require cystoscopy to rule out bladder cancer. Return to the emergency department for any worsening symptoms. Disposition: To home in improved and stable condition. Impression: 1. Hematuria. 2. 6 mm right middle lobe nodule. This note was generated with [employer] dictation software. It may contain incorrect words, spelling, and punctuation that were not noted in review of the chart prior to signing ED Disposition - Plan for ED Patient: Disposition: Home or Assisted Living Chief Complaint: Complaint Instructions: ED Hematuria Prescriptions: Cephalexin [Keflex] 500 mg PO Q12 #14 capsule Referrals: Teo Lamb Chi, MD [Primary Care Provider] - 1-2 Weeks Adi Gill MD [STAFF PHYSICIAN] - 1-2 Weeks
[2018-06-20] MEDS: Cephalexin 500 MG Capsule PO (18:18)
== END 2018-06-20 18:20 | disposition home or self-care (01) ==
LOC: ED 16:11
PROVIDERS: Emergency Provider Emergency Medicine; Family Provider Family Medicine Geriatric Medicine; PCP Family Medicine Geriatric Medicine
DX: R31.9 Hematuria, unspecified (principal); R91.1 Solitary pulmonary nodule; I10 Essential (primary) hypertension; I73.9 Peripheral vascular disease, unspecified; Z79.82 Long term (current) use of aspirin; Z79.899 Other long term (current) drug therapy; I25.2 Old myocardial infarction; Z86.73 Personal history of transient ischemic attack (TIA), and cerebral infarction without residual deficits
CPT/HCPCS: 74176; 80048; 81001; 85025; 85610; 85730; 87086; 87088; 96360; 99283; J7030; A4216

== ENCOUNTER → 2018-11-23 08:45 | Outpatient (CLI) | payer MEDICARE, OTHER, SELFPAY ==
--- NOTE | 2018-11-23 08:48 | CDU_ITS ---
Reason For Study: Bilateral cartid stenosis Rt. Velocities/BP Lt. Velocities/BP Prox CCA 131/27.5 cm/sec. Prox CCA 131/27.5 cm/sec. Mid CCA 90.3/21.7 cm/sec. Mid CCA 130/22 cm/sec. Dist CCA 84.4/23.5 cm/sec. Dist CCA 105/33 cm/sec. Prox ICA 70.9/22.3 cm/sec. Prox ICA 73.3/18.8 cm/sec. Mid ICA 79.7/26.4 cm/sec. Mid ICA 89.7/27 cm/sec. Dist ICA 55.5/20.3 cm/sec. Dist ICA 90.3/31.7 cm/sec. Rt. ICA/CCA = 0.88. Lt. ICA/CCA = 0.69. Prox ECA 170/28.5 cm/sec. Prox ECA 160/40.3 cm/sec. Rt. Vert. 42/15.3 cm/sec. Lt. Vert. 46/12.6 cm/sec. Right Extracranial There is heterogeneous, irregular atherosclerotic plaque noted in the right common carotid artery. There is heterogeneous, irregular atherosclerotic plaque noted in the right internal carotid artery. There is heterogeneous, irregular atherosclerotic plaque noted in the right external carotid artery. The right external carotid artery is not well visualized. Antegrade flow is noted in the right vertebral artery. Left Extracranial There is heterogeneous, irregular atherosclerotic plaque noted in the left common carotid artery. There is intimal thickening but no significant atherosclerotic plaque noted in the left internal carotid artery. There is heterogeneous, irregular atherosclerotic plaque noted in the left external carotid artery. Antegrade flow is noted in the left vertebral artery. Procedure Carotid Duplex 45583. Exam performed in department. Interpretation Summary Calcific irregular plague at the right common carotid and proximal right internal and external carotids. <50% stenosis right internal carotid <50% stenosis right external carotid Calcific plague within the left common carotid. Post surgical changes of the left carotid bulb and origin of the internal and external carotids <50% stenosis left internal carotid <50% stenosis left external carotid Patent and antegrade vertebrals bilaterally Ordering Physician: Reinaldo Romero Referring Physician: Teo Lamb Chi Performed By: Delisa Lindsey RVT, RDCS and Student
== END ==
PROVIDERS: Family Provider Family Medicine Geriatric Medicine; PCP Family Medicine Geriatric Medicine; Referring Provider Surgery; Visit Provider Surgery
DX: I65.23 Occlusion and stenosis of bilateral carotid arteries (principal)
CPT/HCPCS: 93880

== ENCOUNTER → 2018-12-08 12:07 | Outpatient (CLI) | payer MEDICARE, OTHER, SELFPAY ==
[2018-12-08 10:25] VITALS: BMI 32.4
== END ==
PROVIDERS: Family Provider Family Medicine Geriatric Medicine; PCP Family Medicine Geriatric Medicine; Referring Provider Physician Assistant Medical; Visit Provider Physician Assistant Medical
DX: I65.23 Occlusion and stenosis of bilateral carotid arteries (principal); Z86.73 Personal history of transient ischemic attack (TIA), and cerebral infarction without residual deficits
CPT/HCPCS: 93225; 93226

== ENCOUNTER → 2018-12-30 09:16 | Outpatient (CLI) | payer MEDICARE, OTHER, SELFPAY ==
[2018-12-08 10:25] VITALS: BMI 32.4
[2018-12-30 12:44] LABS: Absolute Neutrophil Count 4.1 X10^3/uL (2.0-7.7); Basophil# 0.02 X10^3/uL; Basophil% 0.3 % (0-1); Eosinophil# 0.24 X10^3/uL; Eosinophils% 3.4 % (0-5); Hematocrit 44.7 % (40-54); Hemoglobin 14.5 g/dl (13.0-16.5); Lymphocyte % 29.3 % (19-41); Mean Corp Hgb Conc 32.4 g/gl (32-36); Mean Corpuscular Hgb 30.9 pg (27.0-32.0); Mean Corpuscular Volume 95.3 fL (80-94); Mean Platelet Vol. 9.9 fl (6.2-12.0); Monocyte# 0.71 X10^3/uL; Monocyte% 9.9 % (0-10); Neutrophil # 4.06 X10^3/uL (2.7-7.7); Neutrophil % 56.7 % (47-70); Platelet Count 190 K/mm3 (150-450); RBC Distribution Width CV 12.5 % (11.6-14.6); RBC Distribution Width SD 42.7 fl (35.1-43.9); Red Blood Count 4.69 M/mm3 (4.6-6.2); White Blood Count 7.2 K/mm3 (4.4-11.0)
[2018-12-30 12:47] LABS: POSITIVE COUNT NO; POSITIVE DIFFERENTIAL NO; POSITIVE MORPHOLOGY NO
[2018-12-30 13:07] LABS: Vitamin D,25 Hydroxy 21.3 ng/mL (29.95-100.01)
[2018-12-30 13:08] LABS: ALB/GLOB Ratio 1.1 RATIO (0.9-2.4); AST(SGOT) 18 U/L (15-37); Alanine Aminotransfer ALT/SGPT 42 U/L (16-61); Albumin, Serum 3.8 g/dL (3.2-5.0); Alkaline Phosphatase 81 U/L (45-117); Anion Gap 8 (5-15); BUN 16 mg/dL (7-18); BUN/Creat Ratio 14.5 RATIO (10-20); Calcium,Total 8.3 mg/dL (8.5-10.1); Chloride 107 mmol/L (98-107); EST Glomerular Filtration Rate 70 mL/min (>60); Est Glom Filt Rate - Afr Amer 85 mL/min (>60); Globulin 3.5 g/dL (2.2-4.2); Glucose 104 mg/dL (74-106); Protein, Total 7.3 g/dL (6.4-8.2); Sodium Level 142 mmol/L (136-145); Thyroid Stim Hormone (TSH) 4.89 uIU/mL (0.358-3.74)
== END ==
PROVIDERS: Family Provider Family Medicine Geriatric Medicine; PCP Family Medicine Geriatric Medicine; Visit Provider Family Medicine Geriatric Medicine
DX: I10 Essential (primary) hypertension (principal); E55.9 Vitamin D deficiency, unspecified
CPT/HCPCS: 36415; 80053; 82306; 84443; 85025

== ENCOUNTER → 2019-03-31 12:23 | Outpatient (CLI) | payer MEDICARE, OTHER, SELFPAY ==
[2018-12-08 10:25] VITALS: BMI 32.4
[2019-03-31 17:01] LABS: Thyroid Stim Hormone (TSH) 2.02 uIU/mL (0.358-3.74)
== END ==
PROVIDERS: Family Provider Family Medicine Geriatric Medicine; PCP Family Medicine Geriatric Medicine; Visit Provider Family Medicine Geriatric Medicine
DX: E03.9 Hypothyroidism, unspecified (principal)
CPT/HCPCS: 36415; 84443

== ENCOUNTER → 2019-06-29 10:27 | Outpatient (CLI) | payer MEDICARE, OTHER, SELFPAY ==
[2019-06-29 09:45] VITALS: BMI 32.4
[2019-06-29 13:10] LABS: AST(SGOT) 23 U/L (15-37); Alanine Aminotransfer ALT/SGPT 30 U/L (16-61); Albumin, Serum 3.6 g/dL (3.2-5.0); Alkaline Phosphatase 72 U/L (45-117); Bilirubin, Direct 0.11 mg/dL (0.00-0.30); Cholesterol 106 mg/dL (200); Globulin 3.5 g/dL (2.2-4.2); High Density Lipoprotein 44 mg/dL; Protein, Total 7.1 g/dL (6.4-8.2); Triglycerides 106 mg/dL; Very Low Density Lipoprotein 21 mg/dL (5-40)
== END ==
PROVIDERS: Family Provider Family Medicine Geriatric Medicine; PCP Family Medicine Geriatric Medicine; Referring Provider Internal Medicine Cardiovascular Disease; Visit Provider Internal Medicine Cardiovascular Disease
DX: E78.5 Hyperlipidemia, unspecified (principal)
CPT/HCPCS: 36415; 80061; 80076

== ENCOUNTER → 2019-07-01 08:51 | Outpatient (CLI) | payer MEDICARE, OTHER, SELFPAY ==
[2019-06-29 09:45] VITALS: BMI 32.4
[2019-07-01 13:14] LABS: Absolute Lymphocyte Count 1.74 X10^3/uL (0.83-4.51); Absolute Neutrophil Count 3.3 X10^3/uL (2.0-7.7); Basophil# 0.02 X10^3/uL; Basophil% 0.4 % (0-1); Eosinophil# 0.25 X10^3/uL; Eosinophils% 4.4 % (0-5); Hematocrit 42.3 % (40-54); Lymphocyte # 1.74 X10^3/ul (4.0); Lymphocyte % 30.7 % (19-41); Mean Corp Hgb Conc 33.1 g/dL (32-36); Mean Corpuscular Hgb 31.3 pg (27.0-32.0); Mean Corpuscular Volume 94.4 fL (80-94); Mean Platelet Vol. 9.8 fl (6.2-12.0); Monocyte# 0.35 X10^3/uL; Monocyte% 6.2 % (0-10); NRBC Flagged by Analyzer 0 % (0-5); Neutrophil # 3.29 X10^3/uL (2.7-7.7); Neutrophil % 58.1 % (47-70); Platelet Count 204 K/mm3 (150-450); RBC Distribution Width CV 12.1 % (11.6-14.6); RBC Distribution Width SD 41.6 fl (35.1-43.9); Red Blood Count 4.48 M/mm3 (4.6-6.2); White Blood Count 5.7 K/mm3 (4.4-11.0)
[2019-07-01 13:30] LABS: Vitamin D,25 Hydroxy 30.1 ng/mL (29.95-100.01)
[2019-07-01 13:31] LABS: ALB/GLOB Ratio 1.1 RATIO (0.9-2.4); AST(SGOT) 19 U/L (15-37); Alanine Aminotransfer ALT/SGPT 34 U/L (16-61); Albumin, Serum 3.7 g/dL (3.2-5.0); Alkaline Phosphatase 69 U/L (45-117); Anion Gap 8 (5-15); BUN 13 mg/dL (7-18); BUN/Creat Ratio 11.4 RATIO (10-20); Calcium,Total 8.6 mg/dL (8.5-10.1); Chloride 109 mmol/L (98-107); Creatinine, Serum 1.14 mg/dL (0.70-1.30); EST Glomerular Filtration Rate 67 mL/min (>60); Est Glom Filt Rate - Afr Amer 81 mL/min (>60); Globulin 3.4 g/dL (2.2-4.2); Glucose 136 mg/dL (74-106); Potassium 3.8 mmol/L (3.5-5.1); Protein, Total 7.1 g/dL (6.4-8.2); Sodium Level 145 mmol/L (136-145)
== END ==
PROVIDERS: Family Provider Family Medicine Geriatric Medicine; PCP Family Medicine Geriatric Medicine; Visit Provider Family Medicine Geriatric Medicine
DX: I10 Essential (primary) hypertension (principal); E55.9 Vitamin D deficiency, unspecified
CPT/HCPCS: 36415; 80053; 82306; 84443; 85025

== ENCOUNTER → 2020-03-09 11:29 | Outpatient (CLI) | payer MEDICARE, OTHER, SELFPAY ==
[2019-06-29 09:45] VITALS: BMI 32.4
[2020-03-09 12:46] LABS: Absolute Lymphocyte Count 2.05 X10^3/uL (0.83-4.51); Basophil# 0.02 X10^3/uL; Basophil% 0.3 % (0-1); Eosinophil# 0.19 X10^3/uL; Eosinophils% 3.2 % (0-5); Hematocrit 40.5 % (40-54); Hemoglobin 13.5 g/dL (13.0-16.5); Lymphocyte # 2.05 X10^3/ul (4.0); Lymphocyte % 34.4 % (19-41); Mean Corp Hgb Conc 33.3 g/dL (32-36); Mean Corpuscular Hgb 31.3 pg (27.0-32.0); Mean Platelet Vol. 9.7 fl (6.2-12.0); Monocyte% 11.7 % (0-10); NRBC Flagged by Analyzer 0 % (0-5); Neutrophil # 2.98 X10^3/uL (2.7-7.7); Neutrophil % 50.1 % (47-70); Platelet Count 198 K/mm3 (150-450); RBC Distribution Width CV 13.1 % (11.6-14.6); Red Blood Count 4.31 M/mm3 (4.6-6.2)
[2020-03-09 13:02] LABS: Vitamin D,25 Hydroxy 36.9 ng/mL
[2020-03-09 13:16] LABS: ALB/GLOB Ratio 1.2 RATIO (0.9-2.4); AST(SGOT) 22 U/L (15-37); Alanine Aminotransfer ALT/SGPT 38 U/L (16-61); Albumin, Serum 3.8 g/dL (3.2-5.0); Alkaline Phosphatase 69 U/L (45-117); Anion Gap 8 (5-15); BUN 16 mg/dL (7-18); BUN/Creat Ratio 14.7 RATIO (10-20); Calcium,Total 8.7 mg/dL (8.5-10.1); Chloride 103 mmol/L (98-107); Creatinine, Serum 1.09 mg/dL (0.70-1.30); EST Glomerular Filtration Rate 70 mL/min (>60); Est Glom Filt Rate - Afr Amer 85 mL/min (>60); Globulin 3.3 g/dL (2.2-4.2); Glucose 113 mg/dL (74-106); Potassium 3.8 mmol/L (3.5-5.1); Protein, Total 7.1 g/dL (6.4-8.2); Sodium Level 137 mmol/L (136-145); Thyroid Stim Hormone (TSH) 1.93 uIU/mL (0.358-3.74)
== END ==
PROVIDERS: PCP Family Medicine Geriatric Medicine; Visit Provider Family Medicine Geriatric Medicine
DX: E55.9 Vitamin D deficiency, unspecified (principal); I10 Essential (primary) hypertension
CPT/HCPCS: 36415; 80053; 82306; 84443; 85025

== ENCOUNTER → 2020-06-07 11:14 | Outpatient (CLI) | payer MEDICARE, OTHER, SELFPAY ==
[2019-06-29 09:45] VITALS: BMI 32.4
[2020-06-07 11:59] LABS: Absolute Lymphocyte Count 1.96 X10^3/uL (0.83-4.51); Absolute Neutrophil Count 3.3 X10^3/uL (2.0-7.7); Basophil# 0.03 X10^3/uL; Basophil% 0.5 % (0-1); Eosinophil# 0.39 X10^3/uL; Eosinophils% 6.2 % (0-5); Hematocrit 42.2 % (40-54); Hemoglobin 13.9 g/dL (13.0-16.5); Lymphocyte # 1.96 X10^3/ul (4.0); Lymphocyte % 31.4 % (19-41); Mean Corp Hgb Conc 32.9 g/dL (32-36); Mean Corpuscular Hgb 31.6 pg (27.0-32.0); Mean Corpuscular Volume 95.9 fL (80-94); Mean Platelet Vol. 9.9 fl (6.2-12.0); Monocyte# 0.56 X10^3/uL; NRBC Flagged by Analyzer 0 % (0-5); Neutrophil # 3.29 X10^3/uL (2.7-7.7); Neutrophil % 52.6 % (47-70); Platelet Count 194 K/mm3 (150-450); RBC Distribution Width CV 11.9 % (11.6-14.6); RBC Distribution Width SD 41.6 fl (35.1-43.9); White Blood Count 6.3 K/mm3 (4.4-11.0)
[2020-06-07 12:21] LABS: Vitamin D,25 Hydroxy 41.3 ng/mL
[2020-06-07 12:30] LABS: ALB/GLOB Ratio 1.1 RATIO (0.9-2.4); AST(SGOT) 15 U/L (15-37); Alanine Aminotransfer ALT/SGPT 31 U/L (16-61); Albumin, Serum 3.6 g/dL (3.2-5.0); Alkaline Phosphatase 66 U/L (45-117); Anion Gap 5 (5-15); BUN 15 mg/dL (7-18); BUN/Creat Ratio 13.3 RATIO (10-20); Calcium,Total 8.5 mg/dL (8.5-10.1); Chloride 107 mmol/L (98-107); Creatinine, Serum 1.13 mg/dL (0.70-1.30); EST Glomerular Filtration Rate 67 mL/min (>60); Est Glom Filt Rate - Afr Amer 82 mL/min (>60); Globulin 3.4 g/dL (2.2-4.2); Glucose 109 mg/dL (74-106); Potassium 3.8 mmol/L (3.5-5.1); Sodium Level 139 mmol/L (136-145); Thyroid Stim Hormone (TSH) 2.44 uIU/mL (0.358-3.74)
== END ==
PROVIDERS: PCP Family Medicine Geriatric Medicine; Visit Provider Family Medicine Geriatric Medicine
DX: I10 Essential (primary) hypertension (principal); E55.9 Vitamin D deficiency, unspecified
CPT/HCPCS: 36415; 80053; 82306; 84443; 85025

== ENCOUNTER → 2020-08-31 07:09 | Outpatient (CLI) | payer MEDICARE, OTHER, SELFPAY ==
[2019-06-29 09:45] VITALS: BMI 32.4
[2020-08-31 07:52] LABS: AST(SGOT) 16 U/L (15-37); Alanine Aminotransfer ALT/SGPT 34 U/L (16-61); Albumin, Serum 3.6 g/dL (3.2-5.0); Alkaline Phosphatase 77 U/L (45-117); Bilirubin, Direct 0.11 mg/dL (0.00-0.30); Cholesterol 104 mg/dL (200); Globulin 3.6 g/dL (2.2-4.2); High Density Lipoprotein 36 mg/dL; Protein, Total 7.2 g/dL (6.4-8.2); Triglycerides 117 mg/dL; Very Low Density Lipoprotein 23 mg/dL (5-40)
== END ==
PROVIDERS: PCP Family Medicine Geriatric Medicine; Referring Provider Internal Medicine Cardiovascular Disease; Visit Provider Internal Medicine Cardiovascular Disease
DX: E78.5 Hyperlipidemia, unspecified (principal)
CPT/HCPCS: 36415; 80061; 80076

== ENCOUNTER → 2021-03-12 11:17 | Outpatient (CLI) | payer MEDICARE, OTHER, SELFPAY ==
[2021-01-18 13:32] VITALS: BMI 33.5
[2021-03-12 12:27] LABS: Absolute Lymphocyte Count 1.84 X10^3/uL (0.83-4.51); Absolute Neutrophil Count 2.9 X10^3/uL (2.0-7.7); Basophil# 0.03 X10^3/uL; Basophil% 0.6 % (0-1); Eosinophil# 0.32 X10^3/uL; Eosinophils% 5.9 % (0-5); Hemoglobin 13.6 g/dL (13.0-16.5); Lymphocyte # 1.84 X10^3/ul (0.83-4.51); Lymphocyte % 33.9 % (19-41); Mean Corp Hgb Conc 33.2 g/dL (32-36); Mean Corpuscular Hgb 31.5 pg (27.0-32.0); Mean Corpuscular Volume 94.9 fL (80-94); Monocyte# 0.36 X10^3/uL; Monocyte% 6.6 % (0-10); NRBC Flagged by Analyzer 0 % (0-5); Neutrophil # 2.86 X10^3/uL (2.7-7.7); Neutrophil % 52.8 % (47-70); Platelet Count 170 K/mm3 (150-450); RBC Distribution Width CV 11.6 % (11.6-14.6); RBC Distribution Width SD 40.3 fl (35.1-43.9); Red Blood Count 4.32 M/mm3 (4.6-6.2); White Blood Count 5.4 K/mm3 (4.4-11.0)
[2021-03-12 12:51] LABS: ALB/GLOB Ratio 1.1 RATIO (0.9-2.4); AST(SGOT) 18 U/L (15-37); Alanine Aminotransfer ALT/SGPT 31 U/L (16-61); Albumin, Serum 3.6 g/dL (3.2-5.0); Alkaline Phosphatase 68 U/L (45-117); Anion Gap 8 (5-15); BUN 20 mg/dL (7-18); BUN/Creat Ratio 17.1 RATIO (10-20); Calcium,Total 8.4 mg/dL (8.5-10.1); Chloride 104 mmol/L (98-107); Creatinine, Serum 1.17 mg/dL (0.70-1.30); EST Glomerular Filtration Rate 65 mL/min (>60); Est Glom Filt Rate - Afr Amer 78 mL/min (>60); Globulin 3.2 g/dL (2.2-4.2); Glucose 167 mg/dL (74-106); Potassium 3.5 mmol/L (3.5-5.1); Protein, Total 6.8 g/dL (6.4-8.2); Sodium Level 140 mmol/L (136-145); Thyroid Stim Hormone (TSH) 3.14 uIU/mL (0.358-3.74)
[2021-03-15 12:26] LABS: Vitamin D,25 Hydroxy 37.7 ng/mL
== END ==
PROVIDERS: PCP Family Medicine Geriatric Medicine; Visit Provider Family Medicine Geriatric Medicine
DX: E55.9 Vitamin D deficiency, unspecified (principal); I10 Essential (primary) hypertension
CPT/HCPCS: 36415; 80053; 82306; 84443; 85025

== ENCOUNTER 2021-04-20 06:59 | Day surgery (SDC) | payer MEDICARE, OTHER, SELFPAY ==
[2021-03-22 08:41] VITALS: BMI 33.3
[2021-04-20] VITALS (9 sets, daily range): BP systolic 69–129; BP diastolic 42–74; PULSE 73–99; RESP 16–18; TEMP 36.3–36.8; O2SAT 89–99; BMI 33.0
[2021-04-20] MEDS: Lactated Ringers 1,000 ML 100 ML IV (07:25)
--- NOTE | 2021-04-20 07:37 | HP.PCM_ITS ---
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 Required: No Is patient in pain?: No Allergies No Known Allergies Allergy (Verified 03/22/21 08:48) Medications [id number] 750 mg-100 mg-125 mg-1.65 mg tablet 1 tab PO BID 10/10/17 [History Confirmed 03/22/21] sbbaqide-ugv-jyeza acid 300 mcg-lycopene 600 mcg-lutein 300 mcg tablet 1 tab PO DAILY 10/10/17 [History Confirmed 03/22/21] omega-3 fatty acids 1,000 mg capsule 1,000 mg PO QDAY 10/10/17 [History Confirmed 03/22/21] riboflavin (vitamin B2) 100 mg tablet 100 mg PO BID 10/10/17 [History Confirmed 03/22/21] gabapentin 600 mg PO QHS 04/07/18 [History Confirmed 03/22/21] omeprazole 20 mg PO BID 04/08/18 [History Confirmed 03/22/21] albuterol sulfate 90 mcg/actuation aerosol inhaler 1 - 2 puff INHALATION Q6H PRN PRN 06/20/18 [History Confirmed 03/22/21] budesonide-formoterol HFA 80 mcg-4.5 mcg/actuation aerosol inhaler 2 puff INHALATION BID 06/20/18 [History Confirmed 03/22/21] fluticasone furoate 27.5 mcg/actuation nasal spray,suspension 1 spray INTRANASAL DAILY 06/20/18 [History Confirmed 03/22/21] aspirin 81 mg tablet,delayed release 81 mg PO DAILY 12/08/18 [History Confirmed 03/22/21] folic acid 1 mg tablet 1 mg PO DAILY 12/08/18 [History Confirmed 03/22/21] loratadine 10 mg tablet 10 mg PO QDAY PRN 12/08/18 [History Confirmed 03/22/21] nitroglycerin 0.4 mg sublingual tablet 0.4 mg SUBLINGUAL Q5-15M PRN 12/08/18 [History Confirmed 03/22/21] enalapril maleate 10 mg tablet 10 mg PO BID #180 tab 07/26/20 [Rx Confirmed 03/22/21] atorvastatin 80 mg tablet 80 mg PO QHS #90 tab 08/03/20 [Rx Confirmed 03/22/21] isosorbide mononitrate 30 mg tablet,extended release 24 hr 30 mg PO QHS #90 tab 08/11/20 [Rx Confirmed 03/22/21] cilostazol 100 mg tablet 100 mg PO .QD tab 09/01/20 [History Confirmed 03/22/21] levothyroxine 25 mcg tablet 25 mcg PO DAILY tab 09/01/20 [History Confirmed 03/22/21] amitriptyline 10 mg tablet 25 mg PO QHS tablet 01/17/21 [History Confirmed 03/22/21] gabapentin 300 mg capsule 600 mg PO DINNER cap 01/17/21 [History Confirmed 03/22/21] hydrochlorothiazide 25 mg tablet 25 mg PO QAM #30 tablet 01/17/21 [Rx Confirmed 03/22/21] tamsulosin 0.4 mg capsule mg PO 01/17/21 [History Confirmed 03/22/21] verapamil 80 mg tablet 80 mg PO TID #270 tablet 01/17/21 [Rx Confirmed 03/22/21] beclomethasone dipropionate 80 mcg/actuation HFA breath activated aerosol 1 inh INHALATION BID 03/22/21 [History Confirmed 03/22/21] [facility] Medical History (Updated 03/22/21 @ 08:41 by Isabelle Alexis) Acid reflux Arthritis Asthma Atherosclerotic heart disease of [place] coronary artery without angina pectoris Claudication Cluster headache Essential (primary) hypertension Hay fever History of inferior wall myocardial infarction Hyperlipidemia Left carotid artery stenosis Obesity Peripheral vascular occlusive disease Severe headache Sleep apnea Stroke Thyroid disease TIA (transient ischemic attack) (04/07/18) TIA involving left internal carotid artery Surgical History History of angioplasty of peripheral vessel (06/07/13) History of herniorrhaphy History of left heart catheterization (05/2002) History of left-sided carotid endarterectomy (05/07/18) Family History Father , 74 Myocardial infarction, Onset Age: 40 first MT age 40 Cancer Social History Smoking Status: Former smoker quit date: 10/20/95 how long ago did patient quit smokin years ago alcohol intake: never substance use type: does not use caffeine: Yes Type: coffee Number of servings: 1 HPI HPI HPI: ERROL RIVERA, is a 75 M who presents to the office today for surgical consultation regarding personal history of colon polyps. I have most recently assisted the patient about 3 years ago after he had a stroke with a carotid endarterectomy and he is doing well from that standpoint. He has had no new symptoms. He is wanting to travel to [place] to visit his grandchild. His m ost recent upper lower endoscopy was March 2016. That was performed because of a personal history of colon polyps. I resected what I thought was a polyp on his most recent exam. Pathology suggested normal colonic tissue. He had been Hemoccult positive at that time. He has not had COVID-19. He has been now fully vaccinated. No history of DVT. He does take fish oil and low-dose aspirin ROS General General: Yes fatigue; No weight change, appetite, colon cancer, breast cancer or weakness HEENT HEENT: No difficulty swallowing, eye injury, eye surgery, swollen glands or hoarseness Endo Endocrine: Yes thyroid disease; No diabetes mellitus, thyroid cancer, Hair loss, heat intolerance or cold intolerance Skin Skin: No rash or changing moles Musc Musculoskeletal: Yes arthritis; No back problems, rheumatoid arthritis, gout or joint pain Cardio Cardiovascular: Yes heart disease, high blood pressure and heart attack; No murmur, pacemaker, atrial fibrillation, heart stent, palpitations, shortness of breat with exertion or chest pain Psych Psychiatric: No depression, anxiety or hearing voices Resp Respiratory: Yes shortness of breath, Yes sleep apnea, No cough, No COPD, Yes asthma, No emphysema and No wheezing Gastro Gastrointestinal: No abdominal pain, No nausea or vomiting, No diarrhea, No constipation, No blood in stool, Yes acid reflux, No hemorrhoids, No ulcers, No gallbladder problem and No black,tarry stools [place] Hematologic: No blood thinners, No blood disorders, No bleeding, No anemia and No blood clots Neuro Neurologic: No weakness Exam Const General: cooperative, healthy appearing and comfortable Resp Effort & Inspection: normal respiratory effort Auscultation: clear to auscultation bilaterally Cardio Rate: regular rate Rhythm: regular rhythm GI Inspection: normal to inspection Palpation: soft and no hepatosplenomegaly Skin General: no rashes or lesions noted Neuro General: patient alert and patient awake Extrem General: no calf tenderness bilaterally Psych Thought Content: normal Assessment and Plan Plan Details Additional Comments: 75-year-old gentleman. He is currently in very good health. Previous history of colon polyp and previous history of Hemoccult positive stool. He does appear to have ongoing longevity. He has a very good quality of life. I propose for him a colonoscopy with possible biopsy or polypectomy as indicated. He is aware of the technique, benefit, risk, alternatives. We will have him hold his fish oil for 1 week. He may maintain his low-dose aspirin. He did well previously under IV sedation. Copy: Dr. Teo Romero M.D., F.A.C.S. I have re-examined the patient. There are no clinical changes since date of exam.
[2021-04-20] MEDS: Midazolam 5 MG/ML Syringe (07:40)
--- NOTE | 2021-04-20 08:00 | COLBX_PTH ---
PATIENT: ERROL RIVERA LOC: EN U#:[id number] AGE/SX: 75/M ROOM: RE04/20/[address]: Dr. Reinaldo Romero MD : 1945 BED: DIS: 04/20/2021 SPEC #: [id number] RECD: 04/20/21 13:07 STATUS: NEHA HANDLEY #: [id number] [place]: 04/20/21 08:[address]: Reinaldo Romero DEPT: SURGICAL PATHOLOGY RECD BY: Laura Shirley ENTERED: 04/20/21 13:29 SP TYPE: COLON BX OTHR DR: Dr. Teo Lamb MD Tissues: A - Ascending colon B - Hepatic capsule, NOS Procedures: Surgery Specimen Level IV HEADER OPERATION: Colonoscopy (MOD) PRE-OP DIAGNOSIS: History of colon polyp TISSUE SUBMITTED: A ? Proximal ascending polyp biopsy 4 mm, B ? Hepatic flexure polyp biopsy MICROSCOPIC DIAGNOSIS A. Proximal ascending colon polyp, biopsy: Tubular adenoma. B. Colonic polyp at hepatic flexure, biopsy: Tubular adenoma. AM:donato 04/24/2021 MICROSCOPIC DESCRIPTION Slides are reviewed. GROSS DESCRIPTION A - Received in fixative is one container labeled with the patient's name and designated proximal ascending polyp biopsy. The specimen consists of two irregular fragments of light farrar soft tissue that in aggregate measure 0.4 x 0.3 x 0.1 cm. The specimen is totally submitted in one cassette. B - Received in fixative is one container labeled with the patient's name and designated hepatic flexure polyp biopsy. The specimen consists of one irregular fragment of light farrar soft tissue that measures 0.4 x 0.4 x 0.1 cm. The specimen is totally submitted in one cassette. / SJ:donato 04/20/21 TC:5 CPT: 90681 x2
--- NOTE | 2021-04-20 08:08 | OP.COLON_ITS ---
Patient Name: Christopher Del Cid Procedure Date: 04/20/2021 7:33 AM Date of : 1945 Age: 75 Procedure: Colonoscopy Indications: High risk colon cancer surveillance: Personal history of colonic polyps Providers: Reinaldo Romero MD Referring MD: Reinaldo Romero MD Medicines: Midazolam 3.5 mg IV, Meperidine 80 mg IV Patient Profile: Last Colonoscopy: 5 years ago. Complications: No immediate complications. Procedure: Pre-Anesthesia Assessment: - Prior to the procedure, a History and Physical was performed, and patient medications and allergies were reviewed. The patient's tolerance of previous anesthesia was also reviewed. The risks and benefits of the procedure and the sedation options and risks were discussed with the patient. All questions were answered, and informed consent was obtained. Prior Anticoagulants: The patient has taken no previous anticoagulant or antiplatelet agents. ASA Grade Assessment: II - A patient with mild systemic disease. After reviewing the risks and benefits, the patient was deemed in satisfactory condition to undergo the procedure. After I obtained informed consent, the scope was passed under direct vision. Throughout the procedure, the patient's blood pressure, pulse, and oxygen saturations were monitored continuously. The colonoscope was introduced through the anus and advanced to the cecum, identified by appendiceal orifice and ileocecal valve. The colonoscopy was performed without difficulty. The patient tolerated the procedure well. The quality of the bowel preparation was good. The ileocecal valve and the appendiceal orifice were photographed. Moderate Sedation: Moderate (conscious) sedation was personally administered by the endoscopist. The following parameters were monitored: oxygen saturation, heart rate, blood pressure, and response to care. Total physician intraservice time was 15 minutes. Scope In: 7:44:40 AM Scope Withdrawal Time 0 hours 10 minutes 7 seconds Scope Out: 8:01:04 AM Total Procedure Duration Time 0 hours 16 minutes 24 seconds Findings: Hemorrhoids were found on perianal exam. slightly enlarged. No mass A 3 mm polyp was found in the proximal ascending colon. The polyp was sessile. The polyp was removed with a cold biopsy forceps. Resection and retrieval were complete. A 4 mm polyp was found in the hepatic flexure. The polyp was sessile. The polyp was removed with a cold biopsy forceps. Resection and retrieval were complete. Multiple diverticula were found in the sigmoid colon and descending colon. Impression: - Hemorrhoids found on perianal exam. - One 3 mm polyp in the proximal ascending colon, removed with a cold biopsy forceps. Resected and retrieved. - One 4 mm polyp at the hepatic flexure, removed with a cold biopsy forceps. Resected and retrieved. - Diverticulosis in the sigmoid colon and in the descending colon. Recommendation: - Discharge patient to home. - Resume previous diet. - Continue present medications. - Repeat colonoscopy is not recommended due to current age (66 years or older) for screening purposes. - Telephone my office for pathology results in 1 week. Procedure Code(s): --- Professional --- 30921, Colonoscopy, flexible; with biopsy, single or multiple 43633, 59, Moderate sedation services provided by the same physician or other qualified health restorative care technician performing the diagnostic or therapeutic service that the sedation supports, requiring the presence of an independent trained observer to assist in the monitoring of the patient's level of consciousness and physiological status; initial 15 minutes of intraservice time, patient age 5 years or older Diagnosis Code(s): --- Professional --- Z86.010, Personal history of colonic polyps K64.9, Unspecified hemorrhoids D12.2, Benign neoplasm of ascending colon D12.3, Benign neoplasm of transverse colon (hepatic flexure or splenic flexure) K57.30, Diverticulosis of large intestine without perforation or abscess without bleeding CPT copyright 2017 [employer]. All rights reserved. The codes documented in this report are preliminary and upon senior business process analyst review may be revised to meet current compliance requirements. Reinaldo Romero MD 04/20/2021 8:07:39 AM This report has been signed electronically. Number of Addenda: 0 Note Initiated On: 04/20/2021 7:33 AM
--- NOTE | 2021-04-20 08:09 | OP.CCLET_ITS ---
04/20/2021 Teo Lamb MD [address] [place] [address] Re : Colonoscopy procedure for Christopher Del Cid Dear Dr. Lamb This procedure was performed on Tuesday, April 20, 2021. My impressions and recommendations are as follows: Impressions : - Hemorrhoids found on perianal exam. - One 3 mm polyp in the proximal ascending colon, removed with a cold biopsy forceps. Resected and retrieved. - One 4 mm polyp at the hepatic flexure, removed with a cold biopsy forceps. Resected and retrieved. - Diverticulosis in the sigmoid colon and in the descending colon. Recommendations : - Discharge patient to home. - Resume previous diet. - Continue present medications. - Repeat colonoscopy is not recommended due to current age (66 years or older) for screening purposes. - Telephone my office for pathology results in 1 week. My findings are described in the full procedure note, which is enclosed. If I can be of further assistance, please feel free to contact me at Doctor phone number(s): Work: . Sincerely, Reinaldo Romero MD 04/20/2021 8:07:39 AM This report has been signed electronically.
== END 2021-04-20 09:16 ==
LOC: EN 06:59 → AC 07:00
PROVIDERS: PCP Family Medicine Geriatric Medicine; Referring Provider Surgery; Visit Provider Surgery
PROC: 0DJD8ZZ Inspection of Lower Intestinal Tract, Via Natural or Artificial Opening Endoscopic (ICD-10-PCS; CPT 45378; principal; 2021-04-20 07:55)
DX: D12.2 Benign neoplasm of ascending colon (principal); D12.3 Benign neoplasm of transverse colon; K57.30 Diverticulosis of large intestine without perforation or abscess without bleeding; K64.9 Unspecified hemorrhoids; Z86.010 Personal history of colon polyps; I73.9 Peripheral vascular disease, unspecified; I10 Essential (primary) hypertension; E78.5 Hyperlipidemia, unspecified; K21.9 Gastro-esophageal reflux disease without esophagitis; M19.90 Unspecified osteoarthritis, unspecified site; J45.909 Unspecified asthma, uncomplicated; I65.22 Occlusion and stenosis of left carotid artery; I25.2 Old myocardial infarction; E66.9 Obesity, unspecified; Z68.33 Body mass index [BMI] 33.0-33.9, adult; G47.30 Sleep apnea, unspecified; E07.9 Disorder of thyroid, unspecified; Z86.73 Personal history of transient ischemic attack (TIA), and cerebral infarction without residual deficits; Z79.82 Long term (current) use of aspirin; Z79.899 Other long term (current) drug therapy; Z87.891 Personal history of nicotine dependence
CPT/HCPCS: 45380; 88305; 99152; 99153; J7120

== ENCOUNTER → 2021-07-16 | Outpatient (CLI) | payer MEDICARE, OTHER, SELFPAY | END | disposition home or self-care (01) | LOC: LABSPEC 08:24 | PROVIDERS: PCP Family Medicine Geriatric Medicine; Referring Provider Nurse Practitioner Family; Visit Provider Nurse Practitioner Family | DX: Z20.822 Contact with and (suspected) exposure to COVID-19 (principal) | CPT/HCPCS: 87635; U0005; U0003 ==

== ENCOUNTER → 2021-09-03 11:40 | Outpatient (CLI) | payer MEDICARE, OTHER, SELFPAY ==
--- NOTE | 2021-09-03 11:44 | RAD_ITS ---
STUDY: X-RAY CHEST REASON FOR EXAM: Male, 76 years old. CONGESTION TECHNIQUE: 2 views COMPARISON: 04/07/2018 FINDINGS: Cardiomediastinal silhouette is unremarkable. Costophrenic angles are sharp. Lungs are hyperinflated but clear. The trachea is midline. There is no pneumothorax. Multilevel thoracic spondylosis is noted. RAD/Chest PA and Lateral IMPRESSION: No acute cardiopulmonary process. Electronically Signed: Luis Antonio Colon MD at 18:50 EST Tel , Service support ,
== END ==
PROVIDERS: PCP Family Medicine Geriatric Medicine; Referring Provider Family Medicine Geriatric Medicine; Visit Provider Family Medicine Geriatric Medicine
DX: R68.83 Chills (without fever) (principal); R09.89 Other specified symptoms and signs involving the circulatory and respiratory systems
CPT/HCPCS: 71046; 87635; 87804; 87807; C9803; U0005; U0003

== ENCOUNTER → 2021-09-10 11:30 | Outpatient (CLI) | payer MEDICARE, OTHER, SELFPAY ==
[2021-09-10 12:40] LABS: Absolute Lymphocyte Count 1.55 X10^3/uL (0.83-4.51); Absolute Neutrophil Count 4.6 X10^3/uL (2.0-7.7); Basophil# 0.02 X10^3/uL; Basophil% 0.3 % (0-1); Eosinophil# 0.22 X10^3/uL; Eosinophils% 3.1 % (0-5); Hematocrit 40.5 % (40-54); Hemoglobin 13.6 g/dL (13.0-16.5); Lymphocyte # 1.55 X10^3/ul (0.83-4.51); Lymphocyte % 21.9 % (19-41); Mean Corp Hgb Conc 33.6 g/dL (32-36); Mean Corpuscular Hgb 31.6 pg (27.0-32.0); Mean Platelet Vol. 9.9 fl (6.2-12.0); Monocyte% 9.9 % (0-10); NRBC Flagged by Analyzer 0 % (0-5); Neutrophil # 4.57 X10^3/uL (2.7-7.7); Neutrophil % 64.4 % (47-70); Platelet Count 232 K/mm3 (150-450); RBC Distribution Width CV 12.8 % (11.6-14.6); RBC Distribution Width SD 43.8 fl (35.1-43.9); Red Blood Count 4.31 M/mm3 (4.6-6.2); White Blood Count 7.1 K/mm3 (4.4-11.0)
[2021-09-10 12:53] LABS: Vitamin D,25 Hydroxy 33.2 ng/mL
[2021-09-10 13:05] LABS: ALB/GLOB Ratio 0.9 RATIO (0.9-2.4); AST(SGOT) 15 U/L (15-37); Alanine Aminotransfer ALT/SGPT 36 U/L (16-61); Albumin, Serum 3.3 g/dL (3.2-5.0); Alkaline Phosphatase 90 U/L (45-117); Anion Gap 6 (5-15); BUN 16 mg/dL (7-18); BUN/Creat Ratio 15.4 RATIO (10-20); Calcium,Total 8.6 mg/dL (8.5-10.1); Chloride 105 mmol/L (98-107); Creatinine, Serum 1.04 mg/dL (0.70-1.30); EST Glomerular Filtration Rate 74 mL/min (>60); Est Glom Filt Rate - Afr Amer 90 mL/min (>60); Globulin 3.8 g/dL (2.2-4.2); Glucose 130 mg/dL (74-106); Potassium 3.7 mmol/L (3.5-5.1); Protein, Total 7.1 g/dL (6.4-8.2); Sodium Level 138 mmol/L (136-145); Thyroid Stim Hormone (TSH) 2.26 uIU/mL (0.358-3.74)
== END ==
PROVIDERS: PCP Family Medicine Geriatric Medicine; Visit Provider Family Medicine Geriatric Medicine
DX: I10 Essential (primary) hypertension (principal); E55.9 Vitamin D deficiency, unspecified
CPT/HCPCS: 36415; 80053; 82306; 84443; 85025

== ENCOUNTER → 2022-03-13 | Outpatient (CLI) | payer MEDICARE, OTHER, SELFPAY ==
[2022-03-13 12:22] LABS: Absolute Lymphocyte Count 1.53 X10^3/uL (0.83-4.51); Basophil# 0.02 X10^3/uL; Basophil% 0.3 % (0-1); Eosinophil# 0.24 X10^3/uL; Eosinophils% 3.8 % (0-5); Hematocrit 40.8 % (40-54); Hemoglobin 13.7 g/dL (13.0-16.5); Lymphocyte # 1.53 X10^3/ul (0.83-4.51); Lymphocyte % 24.5 % (19-41); Mean Corp Hgb Conc 33.6 g/dL (32-36); Mean Corpuscular Hgb 31.9 pg (27.0-32.0); Mean Corpuscular Volume 94.9 fL (80-94); Mean Platelet Vol. 9.9 fl (6.2-12.0); Monocyte# 0.44 X10^3/uL; NRBC Flagged by Analyzer 0 % (0-5); Neutrophil % 64.1 % (47-70); Platelet Count 190 K/mm3 (150-450); RBC Distribution Width CV 12.6 % (11.6-14.6); RBC Distribution Width SD 43.6 fl (35.1-43.9); White Blood Count 6.3 K/mm3 (4.4-11.0)
[2022-03-13 12:47] LABS: Vitamin D,25 Hydroxy 36.4 ng/mL
[2022-03-13 12:49] LABS: ALB/GLOB Ratio 1.1 RATIO (0.9-2.4); AST(SGOT) 14 U/L (15-37); Alanine Aminotransfer ALT/SGPT 36 U/L (16-61); Albumin, Serum 3.6 g/dL (3.2-5.0); Alkaline Phosphatase 73 U/L (45-117); Anion Gap 7 (5-15); BUN 12 mg/dL (7-18); BUN/Creat Ratio 10.7 RATIO (10-20); Calcium,Total 8.5 mg/dL (8.5-10.1); Chloride 106 mmol/L (98-107); Creatinine, Serum 1.12 mg/dL (0.70-1.30); EST Glomerular Filtration Rate 68 mL/min (>60); Est Glom Filt Rate - Afr Amer 82 mL/min (>60); Globulin 3.4 g/dL (2.2-4.2); Glucose 186 mg/dL (74-106); Potassium 3.4 mmol/L (3.5-5.1); Sodium Level 140 mmol/L (136-145); Thyroid Stim Hormone (TSH) 3.34 uIU/mL (0.358-3.74)
[2022-03-13 18:39] LABS: Hemoglobin A1c 5.8 % (3.8-5.6)
== END | disposition home or self-care (01) ==
LOC: POLAB3 09:00
PROVIDERS: PCP Family Medicine Geriatric Medicine; Visit Provider Family Medicine Geriatric Medicine
DX: I10 Essential (primary) hypertension (principal); E55.9 Vitamin D deficiency, unspecified; R73.9 Hyperglycemia, unspecified
CPT/HCPCS: 36415; 80053; 82306; 83036; 84443; 85025

== ENCOUNTER → 2022-03-21 | Outpatient (CLI) | payer MEDICARE, OTHER, SELFPAY ==
[2022-03-21 12:42] LABS: Anion Gap 7 (5-15); BUN 13 mg/dL (7-18); BUN/Creat Ratio 10.7 RATIO (10-20); Calcium,Total 8.6 mg/dL (8.5-10.1); Chloride 107 mmol/L (98-107); Creatinine, Serum 1.22 mg/dL (0.70-1.30); EST Glomerular Filtration Rate 61 mL/min (>60); Est Glom Filt Rate - Afr Amer 74 mL/min (>60); Glucose 160 mg/dL (74-106); Potassium 3.7 mmol/L (3.5-5.1); Sodium Level 140 mmol/L (136-145)
== END | disposition home or self-care (01) ==
LOC: POLAB3 09:15
PROVIDERS: PCP Family Medicine Geriatric Medicine; Visit Provider Family Medicine Geriatric Medicine
DX: E87.6 Hypokalemia (principal)
CPT/HCPCS: 36415; 80048

== ENCOUNTER → 2022-06-04 | Outpatient (CLI) | payer MEDICARE, OTHER, SELFPAY ==
[2022-06-04 11:19] LABS: AST(SGOT) 16 U/L (15-37); Alanine Aminotransfer ALT/SGPT 28 U/L (16-61); Albumin, Serum 3.7 g/dL (3.2-5.0); Alkaline Phosphatase 84 U/L (45-117); Anion Gap 6 (5-15); BUN 10 mg/dL (7-18); BUN/Creat Ratio 9.7 RATIO (10-20); Bilirubin, Direct 0.11 mg/dL (0.00-0.30); Calcium,Total 8.7 mg/dL (8.5-10.1); Chloride 106 mmol/L (98-107); Cholesterol 128 mg/dL (200); Creatinine, Serum 1.03 mg/dL (0.70-1.30); EST Glomerular Filtration Rate 75 mL/min (>60); Est Glom Filt Rate - Afr Amer 90 mL/min (>60); Globulin 3.6 g/dL (2.2-4.2); Glucose 145 mg/dL (74-106); High Density Lipoprotein 43 mg/dL; Potassium 3.8 mmol/L (3.5-5.1); Protein, Total 7.3 g/dL (6.4-8.2); Sodium Level 141 mmol/L (136-145); Triglycerides 119 mg/dL; Very Low Density Lipoprotein 24 mg/dL (5-40)
== END | disposition home or self-care (01) ==
LOC: LAB 10:05
PROVIDERS: PCP Family Medicine Geriatric Medicine; Referring Provider Internal Medicine Cardiovascular Disease; Visit Provider Internal Medicine Cardiovascular Disease
DX: E78.5 Hyperlipidemia, unspecified (principal); I10 Essential (primary) hypertension; I25.2 Old myocardial infarction
CPT/HCPCS: 36415; 80048; 80061; 80076

== ENCOUNTER → 2022-06-28 | Outpatient (CLI) | payer MEDICARE, OTHER, SELFPAY ==
--- NOTE | 2022-06-28 06:18 | ECHOD_ITS ---
Reason For Study: CAD/ASHD Procedure This was a 2D Doppler, Color Flow transthoracic echocardiogram. Exam performed in department. Left Ventricle Normal LV size. Left ventricular systolic function is normal. The estimated ejection fraction is 60 %. Stage 1 diastolic dysfunction. No regional wall motion abnormalities noted. Right Ventricle Normal RV size. Normal systolic function. Atria Normal left atrium. Normal right atrium. Mitral Valve Normal mitral valve. Tricuspid Valve The tricuspid valve is not well visualized. Mild tricuspid valve insufficiency. Pulmonary artery systolic pressure is 23 mmHg. Aortic Valve Normal aortic valve. Pulmonic Valve Normal pulmonic valve. Great Vessels Normal aortic root. The pulmonary artery is normal size. Normal inferior vena cava. Pericardium/Pleural No pericardial effusion. MMode/2D Measurements & Calculations LVIDd: 5.0 cm IVSd: 1.3 cm Ao root diam: 3.6 cm LVIDs: 3.3 cm LVPWd: 1.1 cm RVDd: 3.8 cm FS: 33.1 % LAV(MOD-bp): 45.5 ml LVAd ap4: 24.3 cm2 SV(MOD-sp4): 37.9 ml LAV(MOD-bp) Indexed: 20.8 ml/m2 LVLd ap4: 8.4 cm LAV(MOD-sp2): 30.4 ml EDV(MOD-sp4): 57.6 ml LAV(MOD-sp4): 57.4 ml EDV(sp4-el): 60.0 ml LVAs ap4: 12.3 cm2 LVLs ap4: 6.7 cm ESV(MOD-sp4): 19.7 ml ESV(sp4-el): 19.1 ml EF(MOD-sp4): 65.8 % EF(sp4-el): 68.2 % SV(sp4-el): 40.9 ml LA A4 area: 21.2 cm2 LA dimension(2D): 4.0 cm RA A4 area: 9.6 cm2 Doppler Measurements & Calculations MV E max carlos: 81.6 cm/sec Lat Peak E' Carlos: 5.9 cm/sec Med Peak E' Carlos: 6.6 cm/sec MV A max carlos: 109.9 cm/sec E/E' lat: 13.9 E/E' med: 12.4 MV E/A: 0.74 Ao V2 max: 150.0 cm/sec PA V2 max: 127.8 cm/sec TR max carlos: 220.7 cm/sec Ao max P.0 mmHg TR max P.5 mmHg Ao V2 mean: 108.0 cm/sec Ao mean P.0 mmHg Ao V2 VTI: 30.0 cm ECHO/Echo Complete Interpretation Summary Normal LV size. Left ventricular systolic function is normal. The estimated ejection fraction is 60 %. Stage 1 diastolic dysfunction. Structurally normal valves. Ordering Physician: Costa Ashby Referring Physician: Adonis Performed By: Kenzie Durand, GEO, RVT
--- NOTE | 2022-06-28 18:15 | STRESSREP ---
Stress Test Report Exercise myocardial perfusion stress test. 77-year-old man with a history of known coronary artery disease with an occluded right coronary artery and [id number] collaterals. Resting EKG demonstrates normal sinus rhythm with a rate of 68 bpm normal intervals are noted resting blood pressure is 134/90 mmHg. The patient exercised according to the regular Lukas protocol for total duration of 6 minutes. The maximum heart rate attained was 126 bpm which was 87% of max impacted heart rate and maximum workload was 7.2 metabolic equivalents. At rest there were no ST or T wave changes noted suggest ischemia and at peak exercise upsloping ST changes were noted with did not meet the criteria for ischemia. No clinical angina was noted the test was terminated due to fatigue. Myocardial perfusion protocol. 14.4 mCi of technetium 99m sestamibi was injected at rest. The patient exercised according to regular Lukas protocol. At peak exercise 44.3 mCi of technetium 99m sestamibi was injected stress images were obtained stress and rest images were reconstructed in comparing the short axis vertical long and horizontal long axis. Gated images were also obtained for Perfusion SPECT analysis: Review of the stress images demonstrate normal uptake of tracer noted in all areas of the myocardium. The resting images similar demonstrate normal uptake of tracer noted in all areas of the myocardium. No areas of reversibility are noted suggest ischemia and no previous infarct is noted. Gated SPECT analysis: The gated ejection fraction is 65%. Conclusion: Normal exercise myocardial perfusion stress test at a moderate workload. Preserved ejection fraction.
== END | disposition home or self-care (01) ==
LOC: CVS 06:17
PROVIDERS: PCP Family Medicine Geriatric Medicine; Referring Provider Internal Medicine Cardiovascular Disease; Visit Provider Internal Medicine Cardiovascular Disease
DX: I25.10 Atherosclerotic heart disease of native coronary artery without angina pectoris (principal); I25.2 Old myocardial infarction; R06.09 Other forms of dyspnea
CPT/HCPCS: 78452; 93017; 93306; A9500; A4216

== ENCOUNTER → 2022-08-20 | Outpatient (CLI) | payer MEDICARE, OTHER, SELFPAY | END | disposition home or self-care (01) | PROVIDERS: PCP Family Medicine Geriatric Medicine; Referring Provider Family Medicine Geriatric Medicine; Visit Provider Family Medicine Geriatric Medicine | DX: R68.83 Chills (without fever) (principal) | CPT/HCPCS: 87635; 87804; 87807; U0003; U0005 ==

== ENCOUNTER → 2022-09-05 | Outpatient (CLI) | payer MEDICARE, OTHER, SELFPAY ==
[2022-09-05 12:32] LABS: Absolute Lymphocyte Count 1.83 X10^3/uL (0.83-4.51); Absolute Neutrophil Count 3.3 X10^3/uL (2.0-7.7); Basophil# 0.03 X10^3/uL; Basophil% 0.5 % (0-1); Eosinophil# 0.32 X10^3/uL; Eosinophils% 5.3 % (0-5); Hematocrit 43.1 % (40-54); Hemoglobin 14.2 g/dL (13.0-16.5); Lymphocyte # 1.83 X10^3/ul (0.83-4.51); Lymphocyte % 30.4 % (19-41); Mean Corp Hgb Conc 32.9 g/dL (32-36); Mean Corpuscular Hgb 31.6 pg (27.0-32.0); Mean Platelet Vol. 9.9 fl (6.2-12.0); Monocyte# 0.49 X10^3/uL; Monocyte% 8.1 % (0-10); NRBC Flagged by Analyzer 0 % (0-5); Neutrophil # 3.34 X10^3/uL (2.7-7.7); Neutrophil % 55.5 % (47-70); Platelet Count 169 K/mm3 (150-450); RBC Distribution Width CV 12.6 % (11.6-14.6); RBC Distribution Width SD 44.3 fl (35.1-43.9); Red Blood Count 4.49 M/mm3 (4.6-6.2)
[2022-09-05 13:05] LABS: Vitamin D,25 Hydroxy 35.3 ng/mL
[2022-09-05 13:37] LABS: AST(SGOT) 18 U/L (15-37); Alanine Aminotransfer ALT/SGPT 34 U/L (16-61); Albumin, Serum 3.5 g/dL (3.2-5.0); Alkaline Phosphatase 78 U/L (45-117); Anion Gap 10 (5-15); BUN 13 mg/dL (7-18); Calcium,Total 8.8 mg/dL (8.5-10.1); Chloride 105 mmol/L (98-107); Creatinine, Serum 1.08 mg/dL (0.70-1.30); EST Glomerular Filtration Rate 71 mL/min (>60); Est Glom Filt Rate - Afr Amer 85 mL/min (>60); Globulin 3.5 g/dL (2.2-4.2); Glucose 144 mg/dL (74-106); Potassium 3.6 mmol/L (3.5-5.1); Sodium Level 142 mmol/L (136-145); Thyroid Stim Hormone (TSH) 2.56 uIU/mL (0.358-3.74)
== END | disposition home or self-care (01) ==
LOC: POLAB3 09:12
PROVIDERS: PCP Family Medicine Geriatric Medicine; Visit Provider Family Medicine Geriatric Medicine
DX: E55.9 Vitamin D deficiency, unspecified (principal); I10 Essential (primary) hypertension
CPT/HCPCS: 36415; 80053; 82306; 84443; 85025

== ENCOUNTER → 2022-12-03 | Outpatient (CLI) | payer MEDICARE, OTHER, SELFPAY ==
--- NOTE | 2022-12-03 11:08 | CDU_ITS ---
Reason For Study: Carotid Artery Disease Rt. Velocities/BP Lt. Velocities/BP Prox CCA 100.3/20.1 cm/sec. Prox CCA 145.5/20.4 cm/sec. Mid CCA 85.0/14.6 cm/sec. Mid CCA 139.0/18.2 cm/sec. Dist CCA 86.1/17.9 cm/sec. Dist CCA 98.6/20.0 cm/sec. Prox ICA 57.0/13.5 cm/sec. Prox ICA 115.6/20.6 cm/sec. Mid ICA 57.0/16.3 cm/sec. Mid ICA 71.8/16.8 cm/sec. Dist ICA 53.4/14.6 cm/sec. Dist ICA 44.8/11.5 cm/sec. Rt. ICA/CCA = 0.7. Lt. ICA/CCA = 0.8. Prox ECA 137.5/20.6 cm/sec. Prox ECA 143.0/17.0 cm/sec. Rt. Vert. 30.8/8.8 cm/sec. Lt. Vert. 62.6/11.6 cm/sec. Right Extracranial There is heterogeneous, irregular atherosclerotic plaque noted in the right common carotid artery. There is heterogeneous, irregular atherosclerotic plaque noted in the right internal carotid artery. There is heterogeneous, irregular atherosclerotic plaque noted in the right external carotid artery. Antegrade flow is noted in the right vertebral artery. Left Extracranial There is heterogeneous, irregular atherosclerotic plaque noted in the left common carotid artery. There is heterogeneous, irregular atherosclerotic plaque noted in the left internal carotid artery. Prior LT Endarterectomy 2019. There is heterogeneous, irregular atherosclerotic plaque noted in the left external carotid artery. Antegrade flow is noted in the left vertebral artery. Procedure Carotid Duplex 45795. This is a Carotid Duplex examination using B-mode, color flow and specral Doppler. The exam was diagnostic. Exam performed in department. VL/Carotid Duplex Ultrasound Interpretation Summary Irregular calcific plaque with shadowing at the proximal right internal carotid artery although with less than 50% stenosis of the right internal carotid Less than 50% stenosis right external carotid Exophytic calcific plaque left common carotid artery Changes of the left carotid bulb and proximal internal carotid artery with less than 50% stenosis Less than 50% stenosis left external carotid artery Patent and antegrade vertebral arteries bilaterally No change from 11/23/2018 Ordering Physician: Lois Doll Referring Physician: Teo Lamb Chi Performed By: Uche Pacheco RVT
== END | disposition home or self-care (01) ==
LOC: CVS 11:07
PROVIDERS: PCP Family Medicine Geriatric Medicine; Referring Provider Nurse Practitioner Gerontology; Visit Provider Nurse Practitioner Gerontology
DX: I65.22 Occlusion and stenosis of left carotid artery (principal)
CPT/HCPCS: 93880

== ENCOUNTER → 2023-02-17 | Outpatient (CLI) | payer MEDICARE, OTHER, SELFPAY | END | disposition home or self-care (01) | LOC: SL 20:08 | PROVIDERS: PCP Family Medicine Geriatric Medicine; Referring Provider Nurse Practitioner Acute Care; Visit Provider Nurse Practitioner Acute Care | DX: G47.30 Sleep apnea, unspecified (principal) | CPT/HCPCS: 95811 ==

== ENCOUNTER → 2023-03-13 | Outpatient (CLI) | payer MEDICARE, OTHER, SELFPAY ==
[2023-03-13 13:23] LABS: Absolute Neutrophil Count 3.8 X10^3/uL (2.0-7.7); Basophil# 0.03 X10^3/uL; Basophil% 0.4 % (0-1); Eosinophil# 0.32 X10^3/uL; Eosinophils% 4.8 % (0-5); Lymphocyte % 28.3 % (19-41); Mean Corp Hgb Conc 33.3 g/dL (32-36); Mean Corpuscular Hgb 31.3 pg (27.0-32.0); Mean Corpuscular Volume 93.8 fL (80-94); Mean Platelet Vol. 9.9 fl (6.2-12.0); Monocyte# 0.62 X10^3/uL; Monocyte% 9.2 % (0-10); NRBC Flagged by Analyzer 0 % (0-5); Neutrophil # 3.82 X10^3/uL (2.7-7.7); Platelet Count 214 K/mm3 (150-450); RBC Distribution Width CV 13.1 % (11.6-14.6); RBC Distribution Width SD 44.4 fl (35.1-43.9); Red Blood Count 4.16 M/mm3 (4.6-6.2); White Blood Count 6.7 K/mm3 (4.4-11.0)
[2023-03-13 13:53] LABS: ALB/GLOB Ratio 1.2 RATIO (0.9-2.4); AST(SGOT) 19 U/L (15-37); Alanine Aminotransfer ALT/SGPT 34 U/L (16-61); Albumin, Serum 3.7 g/dL (3.2-5.0); Alkaline Phosphatase 82 U/L (45-117); Anion Gap 8 (5-15); BUN 19 mg/dL (7-18); BUN/Creat Ratio 16.7 RATIO (10-20); Bilirubin, Direct 0.13 mg/dL (0.00-0.30); Calcium,Total 8.8 mg/dL (8.5-10.1); Chloride 105 mmol/L (98-107); Cholesterol 113 mg/dL (200); Creatinine, Serum 1.14 mg/dL (0.70-1.30); EST Glomerular Filtration Rate 66 mL/min (>60); Est Glom Filt Rate - Afr Amer 80 mL/min (>60); Globulin 3.1 g/dL (2.2-4.2); Glucose 119 mg/dL (74-106); High Density Lipoprotein 44 mg/dL; Potassium 3.9 mmol/L (3.5-5.1); Protein, Total 6.8 g/dL (6.4-8.2); Sodium Level 142 mmol/L (136-145); Thyroid Stim Hormone (TSH) 2.57 uIU/mL (0.358-3.74); Triglycerides 120 mg/dL; Very Low Density Lipoprotein 24 mg/dL (5-40)
== END | disposition home or self-care (01) ==
LOC: POLAB3 09:34
PROVIDERS: Internal Medicine Cardiovascular Disease; PCP Family Medicine Geriatric Medicine; Visit Provider Family Medicine Geriatric Medicine
DX: I10 Essential (primary) hypertension (principal); E55.9 Vitamin D deficiency, unspecified
CPT/HCPCS: 36415; 80053; 80061; 82248; 82306; 84443; 85025

== ENCOUNTER → 2023-09-10 | Outpatient (CLI) | payer MEDICARE, OTHER, SELFPAY ==
--- NOTE | 2023-09-10 10:15 | RAD_ITS ---
STUDY: X-RAY - ABDOMEN/PELVIS REASON FOR EXAM: Male, 78 years old. Fecal impaction. TECHNIQUE: Single AP view of the abdomen / pelvis on 2 images. COMPARISON: None. FINDINGS: Normal visualized lung bases. Normal bowel gas pattern with air seen to the rectosigmoid. Moderate to marked amount of feces in the colon. The visualized liver, spleen and kidneys are grossly normal in size and morphology. Normal soft tissue structures. Normal visualized osseous structures. RAD/Abdomen Single View IMPRESSION: Moderate to marked amount of feces in the colon. Electronically Signed: Cesar Manzano MD at 14:55 EST ,
[2023-09-10 11:20] LABS: Absolute Neutrophil Count 3.4 X10^3/uL (2.0-7.7); Basophil# 0.03 X10^3/uL; Basophil% 0.5 % (0-1); Eosinophil# 0.22 X10^3/uL; Eosinophils% 3.8 % (0-5); Hematocrit 41.2 % (40-54); Hemoglobin 13.5 g/dL (13.0-16.5); Lymphocyte % 29.4 % (19-41); Mean Corp Hgb Conc 32.8 g/dL (32-36); Mean Corpuscular Hgb 31.1 pg (27.0-32.0); Mean Corpuscular Volume 94.9 fL (80-94); Monocyte# 0.45 X10^3/uL; Monocyte% 7.8 % (0-10); NRBC Flagged by Analyzer 0 % (0-5); Neutrophil # 3.36 X10^3/uL (2.7-7.7); Neutrophil % 58.2 % (47-70); Platelet Count 194 K/mm3 (150-450); RBC Distribution Width CV 12.1 % (11.6-14.6); RBC Distribution Width SD 42.5 fl (35.1-43.9); Red Blood Count 4.34 M/mm3 (4.6-6.2); White Blood Count 5.8 K/mm3 (4.4-11.0)
[2023-09-10 11:46] LABS: ALB/GLOB Ratio 0.9 RATIO (0.9-2.4); AST(SGOT) 21 U/L (15-37); Alanine Aminotransfer ALT/SGPT 34 U/L (16-61); Albumin, Serum 3.6 g/dL (3.2-5.0); Alkaline Phosphatase 71 U/L (45-117); Anion Gap 6 (5-15); BUN 12 mg/dL (7-18); BUN/Creat Ratio 9.1 RATIO (10-20); Calcium,Total 8.7 mg/dL (8.5-10.1); Chloride 104 mmol/L (98-107); Cholesterol 127 mg/dL (200); Creatinine, Serum 1.32 mg/dL (0.70-1.30); EST Glomerular Filtration Rate 56 mL/min (>60); Est Glom Filt Rate - Afr Amer 68 mL/min (>60); Globulin 3.8 g/dL (2.2-4.2); Glucose 158 mg/dL (74-106); High Density Lipoprotein 49 mg/dL; Potassium 3.5 mmol/L (3.5-5.1); Protein, Total 7.4 g/dL (6.4-8.2); Sodium Level 139 mmol/L (136-145); Thyroid Stim Hormone (TSH) 2.63 uIU/mL (0.358-3.74); Triglycerides 120 mg/dL; Very Low Density Lipoprotein 24 mg/dL (5-40)
== END | disposition home or self-care (01) ==
LOC: POLAB3 09:18
PROVIDERS: PCP Family Medicine Geriatric Medicine; Visit Provider Family Medicine Geriatric Medicine
DX: K56.41 Fecal impaction (principal); I10 Essential (primary) hypertension; E55.9 Vitamin D deficiency, unspecified; E78.5 Hyperlipidemia, unspecified
CPT/HCPCS: 36415; 74018; 80053; 80061; 82306; 84443; 85025

== ENCOUNTER → 2023-10-22 | Outpatient (CLI) | payer MEDICARE, OTHER, SELFPAY | END | disposition home or self-care (01) | LOC: PSN 12:12 | PROVIDERS: PCP Family Medicine Geriatric Medicine; Referring Provider Family Medicine Geriatric Medicine; Visit Provider Family Medicine Geriatric Medicine | DX: R68.83 Chills (without fever) (principal) | CPT/HCPCS: 87634; 87635; 87804 ==

== ENCOUNTER → 2023-12-02 | Outpatient (CLI) | payer MEDICARE, OTHER, SELFPAY ==
--- OUTSIDE RECORDS SUMMARY | 2023-12-02 09:51 | XMS RPT_ITS | CCD ---
Author Name Unknown Address [address] [place] [address] Organization [facility] Care Team Providers [facility] [employer] Name Role Phone Margarita LOGAN, Carmina Willis Unavailable Unavailable Erica Ramos Unavailable Unavailable Ashlyn Dumont Unavailable Unavailable Erica Ramos Unavailable Unavailable Allergies Allergy Classification Reported Allergen(s) Allergy Type Date of Onset Reaction(s) Facility (4 sources) shellfish, unspecified; Translations: [SHELLFISH] food allergy 01-08-2011 ? [facility] Work Phone: Medications Completed/Discontinued Medications Medication Drug Class(es) Dates Sig (Normalized) Sig (Original) ALBUTEROL SULFATE (4 sources) beta2-Adrenergic Agonist Start: 11-10-2015 PROAIR HFA 108 (90 Base) MCG/ACT AERS as needed ALBUTEROL SULFATE [id number] Costa Ashby MD Problems Active Problems Problem Classification Problem Date Documented Date Episodic/Chronic Acute myocardial infarction (4 sources) Subsequent ST elevation (STEMI) myocardial infarction of inferior wall; Translations: [Subsequent ST elevation (STEMI) myocardial infarction of inferior wall] Onset: 01-08-2011 01-08-2011 Chronic Coronary atherosclerosis and other heart disease (12 sources) Old myocardial infarction; Translations: [Coronary arteriosclerosis] Onset: 01-08-2011 11-27-2016 Chronic Disorders of lipid metabolism (4 sources) Hyperlipidemia; Translations: [Hyperlipidemia, unspecified] Onset: 04-21-2012 04-21-2012 Chronic Essential hypertension (4 sources) Hypertensive disorder; Translations: [Essential (primary) hypertension] Onset: 01-18-2014 01-18-2014 Chronic Other nervous system disorders (1 source) Claudication; Translations: [Peripheral vascular disease, unspecified] Onset: 01-06-2013 01-06-2013 Chronic Other nutritional; endocrine; and metabolic disorders (7 sources) Body mass index (BMI) 33.0-33.9, adult; Translations: [Body mass index (BMI) 32.0-32.9, adult] Onset: 07-20-2013 07-20-2013 Chronic Other nutritional; endocrine; and metabolic disorders (1 source) Body mass index (BMI) 32.0-32.9, adult; Translations: [Body mass index (BMI) 32.0-32.9, adult] Onset: 07-20-2013 05-21-2016 Chronic Peripheral and visceral atherosclerosis (11 sources) Atherosclerosis of aorta; Translations: [Arteriosclerotic vascular disease] Onset: 01-08-2011 01-08-2011 Chronic Unclassified (1 source) Long-term drug therapy; Translations: [Other equipment operator intermodal 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] Onset: 01-08-2011 01-08-2011 Past or Other Problems Problem Classification Problem Date Documented Da te Episodic/Chronic Blindness and vision defects (4 sources) Transient visual loss; Translations: [Transient visual loss, unspecified eye] Onset: 01-08-2011 01-08-2011 Episodic Other aftercare (3 sources) Other equipment operator intermodal 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; Translations: [Other equipment operator intermodal 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] Onset: 01-08-2011 01-08-2011 Episodic Results Test Name Value Interpretation Reference Range Facil ity Vital Signs Date Time Vital Sign Value Performing Clinician Evette domínguez 05-28-2017 14:00-0400 BMI (Body Mass Index) 32.71 kg/m2 [facility] Work Phone: 05-28-2017 14:00-0400 BP Diastolic 70 mm[Hg] [facility] Work Phone: 05-28-2017 14:00-0400 BP Systolic 130 mm[Hg] [facility]a [facility] Work Phone: 05-28-2017 14:00-0400 Height 177.8 cm Erica [facility] Work Phone: 05-28-2017 14:00-0400 Pulse (Heart Rate) 80 /min Erica [facility] Work Phone: 05-28-2017 14:00-0400 Respiratory Rate 20 /min Erica Ramos [facility] Work Phone: 05-28-2017 14:00-0400 Weight 103.42 kg [facility] Work Phone: 11-28-2016 11:44-0500 Heart rate 106 /min [facility] Work Phone: 11-28-2016 11:32-0500 BMI (Body Mass Index) 33.28 kg/m2 Harjoan DeFinis [facility] Work Phone: 11-28-2016 11:32-0500 BP Diastolic 60 mm[Hg] Harumi DeFinis [facility] Work Phone: 11-28-2016 11:32-0500 BP Systolic 100 mm[Hg] Harumi DeFinis [facility] Work Phone: 11-28-2016 11:32-0500 BSA (Body Surface Area) 2.23 m2 Harumi DeFinis [facility] Work Phone: 11-28-2016 11:32-0500 Pulse (Heart Rate) 112 /min Harumi DeFinis [facility] Work Phone: 11-28-2016 11:32-0500 Respiratory Rate 20 /min Harumi DeFinis [facility] Work Phone: 11-28-2016 11:32-0500 Weight 105.24 kg Harumi DeFinis [facility] Work Phone: 01-18-2014 08:36-0400 Heart rate 406 ms [facility] Work Phone: 03-31-2012 16:44-0400 Height 177.8 cm Harumi DeFinis [facility] Work Phone: Procedures Date Procedure Procedure Detail Performing Clinician Start: 05-28-2017 End: 05-28-2017 FULL DECATOR OPERATOR Naz Scanlon PA-C Work Phone: Start: 05-28-2017 End: 05-28-2017 Nuclear stress test -exercise Naz Scanlon PA-C Work Phone: Start: 11-28-2016 End: 11-29-2016 *BMP Costa Ashby MD Start: 11-28-2016 End: 11-29-2016 *CBC with Differential Costa Ashby MD Start: 11-28-2016 End: 11-29-2016 *Hepatic Function Panel Louie Villegas Start: 11-28-2016 End: 05-20-2017 Electrocardiogram, complete Costa Ashby MD Start: 11-28-2016 End: 11-28-2016 Follow Up Appt 6 months Louie Villegas Start: 11-28-2016 End: 11-29-2016 Lipid panel [AGGREGATE] Louie Villegas Start: 11-28-2016 End: 11-28-2016 MMM Costa Ashby MD Start: 11-28-2016 End: 11-29-2016 Thyroid stimulating hormone (TSH) Costa Ashby MD Start: 05-21-2016 End: 05-21-2016 Dietary management education, guidance, and counseling Erica Ramos Start: 05-21-2016 End: 05-21-2016 FULL DECATOR OPERATOR Naz Scanlon PA-C Work Phone: Start: 05-21-2016 End: 05-21-2016 Follow Up Appt 6 months Naz valenzuela PA-C Work Phone: Start: 05-21-2016 End: 05-21-2016 Follow Up Appt Other Naz rodriges PA-C Work Phone: Start: 11-10-2015 End: 05-20-2017 *Hepatic Function Panel Louie Villegas Start: 11-10-2015 End: 11-10-2015 Follow Up Appt 6 months Louie Villegas Start: 11-10-2015 End: 05-22-2016 Lipid panel [AGGREGATE] Louie Villegas Start: 11-10-2015 End: 11-10-2015 MMM Costa Ashby MD Start: 02-14-2015 End: 02-14-2015 FULL DECATOR OPERATOR Naz Scanlon PA-C Work Phone: Start: 02-14-2015 End: 02-14-2015 Electrocardiogram, torito Scanlon PA-C Work Phone: Start: 02-14-2015 End: 02-14-2015 Follow Up Appt 6 months Naz valenzuela PA-C Work Phone: Start: 02-14-2015 End: 05-15-2016 Follow Up Appt Other Naz rodriges PA-C Work Phone: Start: 12-19-2014 End: 05-15-2016 *Hepatic Function Panel Louie Villegas Start: 12-19-2014 End: 05-15-2016 Lipid panel [AGGREGATE] Louie Villegas Start: 08-11-2014 End: 08-11-2014 Follow Up Appt 6 months Louie Villegas Start: 08-11-2014 End: 08-11-2014 MMM Costa Ashby MD Start: 01-18-2014 End: 01-18-2014 FULL DECATOR OPERATOR Naz Scanlon PA-C Work Phone: Start: 01-18-2014 End: 01-18-2014 Electrocardiogram, torito Scanlon PA-C Work Phone: Start: 01-18-2014 End: 02-07-2015 Follow Up Appt 6 months Naz valenzuela PA-C Work Phone: Start: 01-18-2014 End: 01-18-2014 Follow Up Appt Other Naz rodriges PA-C Work Phone: Start: 07-20-2013 End: 07-20-2013 Follow Up Appt 6 months Louie Villegas Start: 07-20-2013 End: 07-20-2013 MMM Costa Ashby MD Start: 01-06-2013 End: 01-10-2014 Arterial exam Costa Ashby MD Start: 01-06-2013 End: 01-06-2013 FULL DECATOR OPERATOR Costa Ashby MD Start: 01-06-2013 End: 01-06-2013 Follow Up Appt 6 months Louie Villegas Start: 09-19-2012 End: 01-06-2013 *Hepatic Function Panel Louie Villegas Start: 09-19-2012 End: 01-06-2013 Lipid panel [AGGREGATE] Louie Villegas Start: 03-31-2012 End: 04-21-2012 *Hepatic Function Panel Louie Villegas Start: 03-31-2012 End: 03-31-2012 Follow Up Appt 6 months Louie Villegas Start: 03-31-2012 End: 04-21-2012 Lipid panel [AGGREGATE] Louie Villegas Plan of Treatment Date Care Activity Detail Author Start: 12-04-2017 End: 12-04-2017 Appointment Appointment [facility] Work Phone: Start: 05-29-2017 End: 12-04-2016 *Hepatic Function Panel *Hepatic Function Panel [facility] Work Phone: Start: 05-29-2017 End: 12-04-2016 Lipid panel [AGGREGATE] *Lipid Profile CC PCP [facility] Work Phone: Start: 05-28-2017 End: 05-28-2017 Appointment Appointment [facility] Work Phone: Start: 05-28-2017 End: 05-28-2017 FULL DECATOR OPERATOR FULL DECATOR OPERATOR [facility] Work Phone: Start: 05-28-2017 End: 05-28-2017 Follow Up Appt 6 months Follow Up Appt 6 months [facility] Work Phone: Start: 05-28-2017 End: 05-28-2017 Nuclear stress test -exercise Nuclear stress test -exercise [facility] Work Phone: Start: 11-28-2016 End: 11-29-2016 *BMP *BMP [facility] Work Phone: Start: 11-28-2016 End: 11-29-2016 *CBC with Differential *CBC with Differential [facility] Work Phone: Start: 11-28-2016 End: 11-29-2016 *Hepatic Function Panel *Hepatic Function Panel [facility] Work Phone: Start: 11-28-2016 End: 05-20-2017 Electrocardiogram, complete EKG (In office) [facility] Work Phone: Start: 11-28-2016 End: 11-28-2016 Follow Up Appt 6 months Follow Up Appt 6 months [facility] Work Phone: Start: 11-28-2016 End: 11-29-2016 Lipid panel [AGGREGATE] *Lipid Profile CC PCP [facility] Work Phone: Start: 11-28-2016 End: 11-28-2016 MMM MMM [facility] Work Phone: Start: 11-28-2016 End: 11-29-2016 Thyroid stimulating hormone (TSH) *TSH [facility] Work Phone: Start: 05-21-2016 End: 05-21-2016 FULL DECATOR OPERATOR FULL DECATOR OPERATOR [facility] Work Phone: Start: 05-21-2016 End: 05-21-2016 Follow Up Appt 6 months Follow Up Appt 6 months [facility] Work Phone: Start: 05-21-2016 End: 05-21-2016 Follow Up Appt Other Follow Up Appt Other [facility] Work Phone: Start: 11-10-2015 End: 05-20-2017 *Hepatic Function Panel *Hepatic Function Panel [facility] Work Phone: Start: 11-10-2015 End: 11-10-2015 Follow Up Appt 6 months Follow Up Appt 6 months [facility] Work Phone: Start: 11-10-2015 End: 05-22-2016 Lipid panel [AGGREGATE] *Lipid Profile CC PCP [facility] Work Phone: Start: 11-10-2015 End: 11-10-2015 MMM MMM [facility] Work Phone: Start: 02-14-2015 End: 02-14-2015 [facility] Work Phone: Start: 02-14-2015 End: 02-14-2015 Electrocardiogram, complete EKG (In office) [facility] Work Phone: Start: 02-14-2015 End: 02-14-2015 Follow Up Appt 6 months Follow Up Appt 6 months [facility] Work Phone: Start: 02-14-2015 End: 05-15-2016 Follow Up Appt Other Follow Up Appt Other [facility] Work Phone: Start: 12-19-2014 End: 05-15-2016 *Hepatic Function Panel *Hepatic Function Panel [facility] Work Phone: Start: 12-19-2014 End: 05-15-2016 Lipid panel [AGGREGATE] *Lipid Profile CC PCP [facility] Work Phone: Start: 08-11-2014 End: 08-11-2014 Follow Up Appt 6 months Follow Up Appt 6 months [facility] Work Phone: Start: 08-11-2014 End: 08-11-2014 MMM MMM [facility] Work Phone: Start: 01-18-2014 End: 01-18-2014 FULL DECATOR OPERATOR FULL DECATOR OPERATOR [facility] Work Phone: Start: 01-18-2014 End: 01-18-2014 Electrocardiogram, complete EKG (In office) [facility] Work Phone: Start: 01-18-2014 End: 02-07-2015 Follow Up Appt 6 months Follow Up Appt 6 months [facility] Work Phone: Start: 01-18-2014 End: 01-18-2014 Follow Up Appt Other Follow Up Appt Other [facility] Work Phone: Start: 07-20-2013 End: 07-20-2013 Follow Up Appt 6 months Follow Up Appt 6 months [facility] Work Phone: Start: 07-20-2013 End: 07-20-2013 MMM MMM [facility] Work Phone: Start: 01-06-2013 End: 01-06-2013 Arterial exam Arterial exam [facility] Work Phone: Start: 01-06-2013 End: 01-06-2013 FULL DECATOR OPERATOR FULL DECATOR OPERATOR [facility] Work Phone: Start: 01-06-2013 End: 01-06-2013 Follow Up Appt 6 months Follow Up Appt 6 months [facility] Work Phone: Start: 09-19-2012 End: 01-06-2013 *Hepatic Function Panel *Hepatic Function Panel [facility] Work Phone: Start: 09-19-2012 End: 01-06-2013 Lipid panel [AGGREGATE] *Lipid Profile [facility] Work Phone: Start: 03-31-2012 End: 04-21-2012 *Hepatic Function Panel *Hepatic Function Panel [facility] Work Phone: Start: 03-31-2012 End: 03-31-2012 Follow Up Appt 6 months Follow Up Appt 6 months [facility] Work Phone: Start: 03-31-2012 End: 04-21-2012 Lipid panel [AGGREGATE] *Lipid Profile [facility] Work Phone: Patient Education LOW%20FAT%20DIET [facility] Work Phone: Summary Purpose Family History No Family History Records Found Advance Directives No Advanced Directives Records Found Additional Source Comments (unrecognized sect ion and content) No Status Records Found INFORMATION SOURCE (unrecogn ized section and content) FOR RECORDS PERTAINING TO PATIENTS WHO ARE OR HAVE BEEN ENROLLED IN A CHEMICAL DEPENDENCY/SUBSTANCEABUSE PROGRAM, SOME INFORMATION MAY BE OMITTED. This clinical summary was aggregated from multiple sources. Caution should be exercised in using it in the provision of clinical care. This summary normalizes information from multiple sources, and as a consequence, information in this document may materially change the coding, format and clinical context of patient data. In addition, data may be omitted in some cases. CLINICAL DECISIONS SHOULD BE BASED ON THE PRIMARY CLINICAL RECORDS. [address] provides no warranty or guarantee of the accuracy or completeness of information in this document.
[2023-12-02 10:45] LABS: Anion Gap 8 (5-15); BUN 15 mg/dL (7-18); BUN/Creat Ratio 13.4 RATIO (10-20); Calcium,Total 8.9 mg/dL (8.5-10.1); Chloride 106 mmol/L (98-107); Creatinine, Serum 1.12 mg/dL (0.70-1.30); EST Glomerular Filtration Rate 68 mL/min (>60); Est Glom Filt Rate - Afr Amer 82 mL/min (>60); Glucose 114 mg/dL (74-106); Potassium 3.5 mmol/L (3.5-5.1); Sodium Level 142 mmol/L (136-145)
[2023-12-02 11:27] LABS: Hemoglobin A1c 6.2 % (3.8-5.6)
== END | disposition home or self-care (01) ==
LOC: MTLAB 09:14
PROVIDERS: PCP Family Medicine Geriatric Medicine; Referring Provider Psychiatry & Neurology Neurology; Visit Provider Psychiatry & Neurology Neurology
DX: I10 Essential (primary) hypertension (principal); R73.9 Hyperglycemia, unspecified
CPT/HCPCS: 36415; 80048; 83036

== ENCOUNTER → 2023-12-25 | Outpatient (CLI) | payer MEDICARE, OTHER, SELFPAY ==
--- OUTSIDE RECORDS SUMMARY | 2023-12-25 12:45 | XMS RPT_ITS | CCD ---
Author Name Unknown Address [address] [place] [address] Organization [facility] Care Team Providers Care Vp Integration Name Role Phone Margarita LOGAN, Carmina Willis Unavailable Unavailable Erica Ramos Unavailable Unavailable Ashlyn Dumont Unavailable Unavailable Erica Ramos Unavailable Unavailable Allergies Allergy Classification Reported Allergen(s) Allergy Type Date of Onset Reaction(s) Facility (4 sources) shellfish, unspecified; Translations: [SHELLFISH] food allergy 01-08-2011 ? 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] Onset: 01-08-2011 01-08-2011 Past or Other Problems Problem Classification Problem Date Documented Da te Episodic/Chronic Blindness and vision defects (4 sources) Transient visual loss; Translations: [Transient visual loss, unspecified eye] Onset: 01-08-2011 01-08-2011 Episodic Other aftercare (3 sources) 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; Translations: [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] Onset: 01-08-2011 01-08-2011 Episodic Results Test Name Value Interpretation Reference Range Facil ity Vital Signs Date Time Vital Sign Value Performing Clinician Evette domínguez 05-28-2017 14:00-0400 BMI (Body Mass Index) 32.71 kg/m2 [facility] Work Phone: 05-28-2017 14:00-0400 BP Diastolic 70 mm[Hg] [facility] Work Phone: 05-28-2017 14:00-0400 BP Systolic 130 mm[Hg] [facility] Work Phone: 05-28-2017 14:00-0400 Height 177.8 cm [facility] Work Phone: 05-28-2017 14:00-0400 Pulse (Heart Rate) 80 /min [facility] Work Phone: 05-28-2017 14:00-0400 Respiratory Rate 20 /min Erica Ramos [facility] Work Phone: 05-28-2017 14:00-0400 Weight [...] 11:32-0500 BP Systolic 100 mm[Hg] Harumi DeFinis [facility] Work Phone: 11-28-2016 11:32-0500 BSA (Body Surface Area) 2.23 m2 Harumi DeFinis [facility] Work Phone: 11-28-2016 11:32-0500 Pulse (Heart Rate) 112 /min Harumi DeFinis [facility] Work Phone: 11-28-2016 11:32-0500 Respiratory Rate 20 /min Harumi DeFinis [facility] Work Phone: 11-28-2016 11:32-0500 Weight 105.24 kg Harumi DeFinis [facility] Work Phone: 01-18-2014 08:36-0400 Heart rate 406 ms [facility] Work Phone: 03-31-2012 16:44-0400 Height 177.8 cm Harumi DeFinis [facility] Work Phone: Procedures Date Procedure Procedure Detail Performing Clinician Start: 05-28-2017 End: 05-28-2017 PANEL MACHINE SETTER Naz Scanlon PA-C Work Phone: Start: 05-28-2017 [...] counseling Erica Ramos Start: 05-21-2016 End: 05-21-2016 PANEL MACHINE SETTER Naz Scanlon PA-C Work Phone: Start: 05-21-2016 [...] Costa Ashby MD Start: 02-14-2015 End: 02-14-2015 PANEL MACHINE SETTER Naz Scanlon PA-C Work Phone: Start: 02-14-2015 [...] Costa Ashby MD Start: 01-18-2014 End: 01-18-2014 PANEL MACHINE SETTER Naz Scanlon PA-C Work Phone: Start: 01-18-2014 [...] Costa Ashby MD Start: 01-06-2013 End: 01-06-2013 PANEL MACHINE SETTER Costa Ashby MD Start: 01-06-2013 End: 01-06-2013 [...] 12-04-2016 *Hepatic Function Panel *Hepatic Function Panel [facility] Work Phone: Start: 05-29-2017 End: 12-04-2016 Lipid panel [AGGREGATE] *Lipid Profile CC PCP [facility] Work Phone: Start: 05-28-2017 End: 05-28-2017 Appointment Appointment [facility] Work Phone: Start: 05-28-2017 End: 05-28-2017 PANEL MACHINE SETTER PANEL MACHINE SETTER [facility] Work Phone: Start: 05-28-2017 End: 05-28-2017 Follow Up Appt 6 months Follow Up Appt 6 months [facility] Work Phone: Start: 05-28-2017 End: 05-28-2017 Nuclear stress test -exercise Nuclear stress test -exercise [facility] Work Phone: Start: 11-28-2016 End: 11-29-2016 *BMP *BMP [facility] Work Phone: Start: 11-28-2016 End: 11-29-2016 *CBC with Differential *CBC with Differential [facility] Work Phone: Start: 11-28-2016 End: 11-29-2016 *Hepatic Function Panel *Hepatic Function Panel [facility] Work Phone: Start: 11-28-2016 End: 05-20-2017 Electrocardiogram, complete EKG (In office) [facility] Work Phone: Start: 11-28-2016 End: 11-28-2016 Follow Up Appt 6 months Follow Up Appt 6 months [facility] Work Phone: Start: 11-28-2016 End: 11-29-2016 Lipid panel [AGGREGATE] *Lipid Profile CC PCP [facility] Work Phone: Start: 11-28-2016 End: 11-28-2016 MMM MMM [facility] Work Phone: Start: 11-28-2016 End: 11-29-2016 Thyroid stimulating hormone (TSH) *TSH [facility] Work Phone: Start: 05-21-2016 End: 05-21-2016 PANEL MACHINE SETTER PANEL MACHINE SETTER [facility] Work Phone: Start: 05-21-2016 End: 05-21-2016 Follow Up Appt 6 months Follow Up Appt 6 months [facility] Work Phone: Start: 05-21-2016 End: 05-21-2016 Follow Up Appt Other Follow Up Appt Other [facility] Work Phone: Start: 11-10-2015 End: 05-20-2017 *Hepatic Function Panel *Hepatic Function Panel [facility] Work Phone: Start: 11-10-2015 End: 11-10-2015 Follow Up Appt 6 months Follow Up Appt 6 months [facility] Work Phone: Start: 11-10-2015 End: 05-22-2016 Lipid panel [AGGREGATE] *Lipid Profile CC PCP [facility] Work Phone: Start: 11-10-2015 End: 11-10-2015 MMM MMM [facility] Work Phone: Start: 02-14-2015 End: 02-14-2015 [facility] Work Phone: Start: 02-14-2015 End: 02-14-2015 Electrocardiogram, complete EKG (In office) [facility] Work Phone: Start: 02-14-2015 End: 02-14-2015 Follow Up Appt 6 months Follow Up Appt 6 months [facility] Work Phone: Start: 02-14-2015 End: 05-15-2016 Follow Up Appt Other Follow Up Appt Other [facility] Work Phone: Start: 12-19-2014 End: 05-15-2016 *Hepatic Function Panel *Hepatic Function Panel [facility] Work Phone: Start: 12-19-2014 End: 05-15-2016 Lipid panel [AGGREGATE] *Lipid Profile CC PCP [facility] Work Phone: Start: 08-11-2014 End: 08-11-2014 Follow Up Appt 6 months Follow Up Appt 6 months [facility] Work Phone: Start: 08-11-2014 End: 08-11-2014 MMM MMM [facility] Work Phone: Start: 01-18-2014 End: 01-18-2014 PANEL MACHINE SETTER PANEL MACHINE SETTER [facility] Work Phone: Start: 01-18-2014 End: 01-18-2014 Electrocardiogram, complete EKG (In office) [facility] Work Phone: Start: 01-18-2014 End: 02-07-2015 Follow Up Appt 6 months Follow Up Appt 6 months [facility] Work Phone: Start: 01-18-2014 End: 01-18-2014 Follow Up Appt Other Follow Up Appt Other [facility] Work Phone: Start: 07-20-2013 End: 07-20-2013 Follow Up Appt 6 months Follow Up Appt 6 months [facility] Work Phone: Start: 07-20-2013 End: 07-20-2013 MMM MMM [facility] Work Phone: Start: 01-06-2013 End: 01-06-2013 Arterial exam Arterial exam [facility] Work Phone: Start: 01-06-2013 End: 01-06-2013 PANEL MACHINE SETTER PANEL MACHINE SETTER [facility] Work Phone: Start: 01-06-2013 End: [...] 6 months Follow Up Appt 6 months [facility] Work Phone: Start: 03-31-2012 [...] BE BASED ON THE PRIMARY CLINICAL RECORDS. [employer] provides no warranty or guarantee of the accuracy or completeness of information in this document.
== END | disposition home or self-care (01) ==
LOC: PSN 12:11
PROVIDERS: PCP Family Medicine Geriatric Medicine; Referring Provider Family Medicine Geriatric Medicine; Visit Provider Family Medicine Geriatric Medicine
DX: R68.83 Chills (without fever) (principal)
CPT/HCPCS: 87631

== ENCOUNTER → 2024-02-26 | Outpatient (CLI) | payer MEDICARE, OTHER, SELFPAY ==
[2024-02-26 12:44] VITALS: PULSE 103; PULSE 107; PULSE 111; PULSE 112; PULSE 113; PULSE 83; PULSE 89; PULSE 94; O2SAT 92; O2SAT 93; O2SAT 95; O2SAT 96
--- NOTE | 2024-02-27 09:58 | PCM.PSN.6M ---
PSN 6 Minute Walk Test 6 Minute Walk Test 6 Minute Walk Test: 6 Minute Walk Test PSN:6-Minute Walk Test Start: 02/26/24 12:44 Freq: Status: Active Protocol: [id number].[id number] Document 02/26/24 12:44 KIM (Rec: 02/26/24 12:46 KIM [id number]) 6 Minute Walk Test Date Performed 02/26/24 Time Performed 12:30 Height 5 ft 10 in Weight: 215 lb Weight in Pounds [address]: Jada Atkins [employer] Assistive device used: None Pre-test Oxygen Delivery Method Room Air Pulse Ox 95 Pulse Rate (60-100) 83 Dyspnea Russ Scale (0-10) 0 Exertion Russ Scale (6-20) 6 1st minute Oxygen Delivery Method Room Air Pulse Ox 93 Pulse Rate (60-100) 94 2nd minute Oxygen Delivery Method Room Air Pulse Ox 92 Pulse Rate (60-100) 103 H 3rd minute Oxygen Delivery Method Room Air Pulse Ox 92 Pulse Rate (60-100) 107 H 4th minute Oxygen Delivery Method Room Air Pulse Ox 93 Pulse Rate (60-100) 113 H 5th minute Oxygen Delivery Method Room Air Pulse Ox 93 Pulse Rate (60-100) 112 H 6th minute Oxygen Delivery Method Room Air Pulse Ox 93 Pulse Rate (60-100) 111 H Dyspnea Russ Scale (0-10) 4 Exertion Russ Scale (6-20) 14 Post-test Oxygen Delivery Method Room Air Pulse Ox 96 Pulse Rate (60-100) 89 Full Laps Walked 19 Partial Lap, Number of Tiles Walked 4 Total Distance Walked (ft) 1125 Interpretation Interpretation: The patient ambulated 1125 feet over the course of 6 minutes beginning on room air without assistive devices. Pretesting oxygen saturation was noted to be 95% on room air. With ambulation, the celeste oxygen saturation was 92%. There was no significant exertional oxygen desaturation. Recommendations Recommendations: There is no indication for the use of supplemental oxygen at this time.
== END | disposition home or self-care (01) ==
LOC: PSN 12:15
PROVIDERS: PCP Family Medicine Geriatric Medicine; Referring Provider Nurse Practitioner Acute Care; Visit Provider Nurse Practitioner Acute Care
DX: R09.02 Hypoxemia (principal)
CPT/HCPCS: 94618

== ENCOUNTER → 2024-03-29 | Outpatient (CLI) | payer MEDICARE, OTHER, SELFPAY ==
[2024-03-29 12:24] LABS: Absolute Lymphocyte Count 1.68 X10^3/uL (0.83-4.51); Absolute Neutrophil Count 3.3 X10^3/uL (2.0-7.7); Basophil# 0.03 X10^3/uL; Basophil% 0.5 % (0-1); Eosinophil# 0.22 X10^3/uL; Eosinophils% 3.8 % (0-5); Hematocrit 38.7 % (40-54); Hemoglobin 12.7 g/dL (13.0-16.5); Lymphocyte # 1.68 X10^3/ul (0.83-4.51); Lymphocyte % 28.8 % (19-41); Mean Corp Hgb Conc 32.8 g/dL (32-36); Mean Corpuscular Hgb 31.2 pg (27.0-32.0); Mean Corpuscular Volume 95.1 fL (80-94); Mean Platelet Vol. 9.8 fl (6.2-12.0); Monocyte# 0.64 X10^3/uL; NRBC Flagged by Analyzer 0 % (0-5); Neutrophil # 3.25 X10^3/uL (2.7-7.7); Neutrophil % 55.6 % (47-70); Platelet Count 244 K/mm3 (150-450); RBC Distribution Width CV 12.5 % (11.6-14.6); RBC Distribution Width SD 43.1 fl (35.1-43.9); Red Blood Count 4.07 M/mm3 (4.6-6.2); White Blood Count 5.8 K/mm3 (4.4-11.0)
[2024-03-29 12:37] LABS: Vitamin D,25 Hydroxy 36.9 ng/mL
[2024-03-29 12:45] LABS: AST(SGOT) 22 U/L (15-37); Alanine Aminotransfer ALT/SGPT 32 U/L (16-61); Albumin, Serum 3.5 g/dL (3.2-5.0); Alkaline Phosphatase 69 U/L (45-117); Anion Gap 4 (5-15); BUN 18 mg/dL (7-18); BUN/Creat Ratio 16.8 RATIO (10-20); Chloride 104 mmol/L (98-107); Cholesterol 118 mg/dL (200); Creatinine, Serum 1.07 mg/dL (0.70-1.30); EST Glomerular Filtration Rate 71 mL/min (>60); Est Glom Filt Rate - Afr Amer 86 mL/min (>60); Globulin 3.6 g/dL (2.2-4.2); Glucose 118 mg/dL (74-106); High Density Lipoprotein 41 mg/dL; Potassium 3.7 mmol/L (3.5-5.1); Protein, Total 7.1 g/dL (6.4-8.2); Sodium Level 137 mmol/L (136-145); Triglycerides 113 mg/dL; Very Low Density Lipoprotein 23 mg/dL (5-40)
== END | disposition home or self-care (01) ==
LOC: LAB 10:10
PROVIDERS: PCP Family Medicine Geriatric Medicine; Referring Provider Family Medicine Geriatric Medicine; Visit Provider Family Medicine Geriatric Medicine
DX: I10 Essential (primary) hypertension (principal); E55.9 Vitamin D deficiency, unspecified
CPT/HCPCS: 36415; 80053; 80061; 82306; 84443; 85025

== ENCOUNTER → 2024-10-11 | Outpatient (CLI) | payer MEDICARE, OTHER, SELFPAY ==
[2024-10-11 10:46] LABS: Absolute Neutrophil Count 3.8 X10^3/uL (2.0-7.7); Basophil# 0.03 X10^3/uL; Basophil% 0.4 % (0-1); Eosinophil# 0.47 X10^3/uL; Eosinophils% 6.8 % (0-5); Hematocrit 42.3 % (40-54); Hemoglobin 14.3 g/dL (13.0-16.5); Lymphocyte % 27.6 % (19-41); Mean Corp Hgb Conc 33.8 g/dL (32-36); Mean Corpuscular Hgb 31.4 pg (27.0-32.0); Mean Platelet Vol. 9.9 fl (6.2-12.0); Monocyte# 0.69 X10^3/uL; NRBC Flagged by Analyzer 0 % (0-5); Neutrophil # 3.79 X10^3/uL (2.7-7.7); Neutrophil % 55.1 % (47-70); Platelet Count 199 K/mm3 (150-450); RBC Distribution Width SD 41.1 fl (35.1-43.9); Red Blood Count 4.55 M/mm3 (4.6-6.2); White Blood Count 6.9 K/mm3 (4.4-11.0)
[2024-10-11 11:14] LABS: Vitamin D,25 Hydroxy 30.2 ng/mL
[2024-10-11 11:20] LABS: AST(SGOT) 17 U/L (15-37); Alanine Aminotransfer ALT/SGPT 28 U/L (16-61); Albumin, Serum 3.7 g/dL (3.2-5.0); Alkaline Phosphatase 71 U/L (45-117); Anion Gap 6 (5-15); BUN 17 mg/dL (7-18); BUN/Creat Ratio 14.5 RATIO (10-20); Calcium,Total 9.4 mg/dL (8.5-10.1); Chloride 103 mmol/L (98-107); Creatinine, Serum 1.17 mg/dL (0.70-1.30); EST Glomerular Filtration Rate 64 mL/min (>60); Est Glom Filt Rate - Afr Amer 78 mL/min (>60); Globulin 3.7 g/dL (2.2-4.2); Glucose 107 mg/dL (74-106); Potassium 3.7 mmol/L (3.5-5.1); Protein, Total 7.4 g/dL (6.4-8.2); Sodium Level 139 mmol/L (136-145)
== END | disposition home or self-care (01) ==
LOC: LAB 10:17
PROVIDERS: PCP Family Medicine Geriatric Medicine; Referring Provider Family Medicine Geriatric Medicine; Visit Provider Family Medicine Geriatric Medicine
DX: I10 Essential (primary) hypertension (principal); E55.9 Vitamin D deficiency, unspecified
CPT/HCPCS: 36415; 80053; 82306; 84443; 85025

== ENCOUNTER → 2025-03-30 | Outpatient (CLI) | payer MEDICARE, OTHER, SELFPAY ==
[2025-03-30 11:38] LABS: Absolute Lymphocyte Count 1.99 X10^3/uL (0.83-4.51); Absolute Neutrophil Count 3.4 X10^3/uL (2.0-7.7); Basophil# 0.03 X10^3/uL; Basophil% 0.5 % (0-1); Eosinophil# 0.28 X10^3/uL; Eosinophils% 4.5 % (0-5); Hematocrit 35.9 % (40-54); Hemoglobin 12.2 g/dL (13.0-16.5); Lymphocyte # 1.99 X10^3/ul (0.83-4.51); Lymphocyte % 32.1 % (19-41); Mean Corpuscular Hgb 31.8 pg (27.0-32.0); Mean Corpuscular Volume 93.5 fL (80-94); Mean Platelet Vol. 9.4 fl (6.2-12.0); Monocyte# 0.51 X10^3/uL; Monocyte% 8.2 % (0-10); NRBC Flagged by Analyzer 0 % (0-5); Neutrophil # 3.38 X10^3/uL (2.7-7.7); Neutrophil % 54.5 % (47-70); Platelet Count 183 K/mm3 (150-450); RBC Distribution Width CV 12.6 % (11.6-14.6); RBC Distribution Width SD 43.3 fl (35.1-43.9); Red Blood Count 3.84 M/mm3 (4.6-6.2); White Blood Count 6.2 K/mm3 (4.4-11.0)
[2025-03-30 12:20] LABS: ALB/GLOB Ratio 1.7 RATIO (0.9-2.4); AST(SGOT) 25 U/L (<=37); Alanine Aminotransfer ALT/SGPT 30 U/L (<=46); Albumin, Serum 4.5 g/dL (3.4-4.8); Alkaline Phosphatase 75 U/L (40-129); Anion Gap 11 (5-15); BUN 22 mg/dL (4-19); BUN/Creat Ratio 16.2 RATIO (10-20); Chloride 104 mmol/L (98-108); Creatinine, Serum 1.34 mg/dL (0.70-1.20); EST Glomerular Filtration Rate 54 (>60); Globulin 2.6 g/dL (2.2-4.2); Glucose 112 mg/dL (70-99); Potassium 4.5 mmol/L (3.3-5.1); Protein, Total 7.1 g/dL (5.9-8.4); Sodium Level 139 mmol/L (133-145); Total Bilirubin 0.22 mg/dL (0.00-1.30); Vitamin D,25 Hydroxy 32.6 ng/mL (30-100)
== END | disposition home or self-care (01) ==
LOC: LAB 11:09
PROVIDERS: PCP Family Medicine Geriatric Medicine; Referring Provider Family Medicine Geriatric Medicine; Visit Provider Family Medicine Geriatric Medicine
DX: I10 Essential (primary) hypertension (principal); E55.9 Vitamin D deficiency, unspecified
CPT/HCPCS: 36415; 80053; 82306; 84443; 85025

== ENCOUNTER → 2025-05-09 | Outpatient (CLI) | payer MEDICARE, OTHER, SELFPAY | END | disposition home or self-care (01) | LOC: POLAB3 10:59 | PROVIDERS: PCP Family Medicine Geriatric Medicine; Visit Provider Family Medicine Geriatric Medicine | DX: R68.83 Chills (without fever) (principal) | CPT/HCPCS: 87631 ==

== ENCOUNTER → 2025-05-30 | Outpatient (CLI) | payer MEDICARE, OTHER, SELFPAY ==
[2025-05-30 17:40] LABS: Hematocrit 34.4 % (40-54); Hemoglobin 11.6 g/dL (13.0-16.5); Immature Granulocytes Count 0.020 X10^3/uL (0.0-0.0); Mean Corp Hgb Conc 33.7 g/dL (32-36); Mean Corpuscular Volume 94.8 fL (80-94); Mean Platelet Vol. 9.9 fl (6.2-12.0); NRBC Flagged by Analyzer 0 % (0-5); Platelet Count 193 K/mm3 (150-450); RBC Distribution Width CV 12.5 % (11.6-14.6); RBC Distribution Width SD 43.7 fl (35.1-43.9); Red Blood Count 3.63 M/mm3 (4.6-6.2); White Blood Count 6.0 K/mm3 (4.4-11.0)
[2025-05-30 18:00] LABS: AST(SGOT) 21 U/L (<=37); Alanine Aminotransfer ALT/SGPT 26 U/L (<=46); Albumin, Serum 4.3 g/dL (3.4-4.8); Alkaline Phosphatase 64 U/L (40-129); Anion Gap 12 (5-15); BUN 25 mg/dL (4-19); BUN/Creat Ratio 13.8 RATIO (10-20); Calcium,Total 9.1 mg/dL (7.6-11.0); Carbon Dioxide 23.4 mmol/L (21.0-32.0); Chloride 103 mmol/L (98-108); Globulin 2.4 g/dL (2.2-4.2); Glucose 146 mg/dL (70-99); Potassium 4.1 mmol/L (3.3-5.1); Vitamin B12 619 pg/mL (180-914)
[2025-06-01 05:07] LABS: CRP, High Sensitivity 0.24 mg/L (0.00-3.00)
[2025-06-01 16:09] LABS: PROEL- A/G Ratio 1.4 (0.7-1.7); PROEL- Albumin 3.7 g/dL (2.9-4.4); PROEL- Alpha-1 Globulin 0.2 g/dL (0.0-0.4); PROEL- Alpha-2 Globulin 0.7 g/dL (0.4-1.0); PROEL- Beta Globulin 1.0 g/dL (0.7-1.3); PROEL- Gamma Globulin 0.7 g/dL (0.4-1.8); PROEL- Globulin, Total 2.6 g/dL (2.2-3.9); PROEL- TOTAL PROTEIN 6.3 g/dL (6.0-8.5); PROEL-M-Spike Not Observed g/dL (Not Observed)
== END | disposition home or self-care (01) ==
LOC: LAB 15:16
PROVIDERS: PCP Family Medicine Geriatric Medicine; Referring Provider Family Medicine Geriatric Medicine; Visit Provider Family Medicine Geriatric Medicine
DX: E78.5 Hyperlipidemia, unspecified (principal); M79.7 Fibromyalgia
CPT/HCPCS: 36415; 80053; 82607; 84165; 84443; 85025; 85652; 86141

== ENCOUNTER → 2025-06-01 | Outpatient (CLI) | payer MEDICARE, OTHER, SELFPAY ==
--- NOTE | 2025-06-01 12:41 | US_ITS ---
PROCEDURE: KIDNEY AND BLADDER N/A REASON FOR EXAM: ACUTE KI INJURY TECHNIQUE: KIDNEY AND BLADDER COMPARISON: None FINDINGS: Kidneys: Normal renal sizes, parenchymal thicknesses, and echotextures. Duchesne: No hydronephrosis Cysts or Masses: No cysts or large solid renal masses. Other: RIGHT Kidney Size: 9.9 cm x 5.8 cm x 5.6 cm Volume: 168.95 mL Cortical Thickness (if discernible): 15 mm (>6mm is normal) LEFT Kidney Size: 10.2 cm x 5.2 cm x 5.5 cm Volume: 151.96 mL Cortical Thickness (if discernible): 13 mm (>6mm is normal) US/Kidney and Bladder IMPRESSION: NORMAL RENAL ULTRASOUND. Reading Location: [id number]
--- NOTE | 2025-06-01 13:26 | CT_ITS ---
PROCEDURE: ABDOMEN/PELVIS WITHOUT CONT 06/01/2025 REASON FOR EXAM: ACUTE KI INJURY Weakness. TECHNIQUE: ABDOMEN/PELVIS WITHOUT CONT Noncontrast technique limits evaluation of the abdominal and pelvic viscera. Coronal and Sagittal reconstruction series were provided. One or more dose reduction techniques were used (e.g., Automated exposure control, adjustment of the mA and/or kV according to patient size, use of iterative reconstruction technique). RADIATION DOSE SUMMARY: CTDlvol: 15.01 mGy DLP: 821.31 mGycm COMPARISON: June 20, 2018. FINDINGS: Lung bases: Lung bases are clear. Coronary artery calcification. Moderate- sized hiatal hernia. Liver: Normal size. No obvious mass. Gallbladder: No evidence of gallstones. Spleen: Normal size. Pancreas: Diffuse fatty atrophy. Adrenals: Unremarkable Kidneys: Nonspecific bilateral perinephric stranding. No evidence of hydronephrosis. Bladder: Unremarkable Prostatic enlargement with indentation at the bladder base. Bowel: Colonic diverticulosis without diverticulitis. Appendix: The appendix is not identified. There is no inflammatory process identified in the right lower quadrant to suggest appendicitis. Lymph nodes: Unremarkable. Vasculature: Diffuse atherosclerotic changes of the abdominal aorta and the major visceral branches. Peritoneum / Retroperitoneum: Unremarkable Bones: Mild degree of degenerative changes. CT/Abdomen/Pelvis without Cont IMPRESSION: No evidence of hydronephrosis. Sigmoid diverticulosis. Coronary artery calcification. Hiatal hernia. Reading Location: [id number]
[2025-06-01 16:20] LABS: Anion Gap 15 (5-15); BUN 35 mg/dL (4-19); BUN/Creat Ratio 21.0 RATIO (10-20); Calcium,Total 9.2 mg/dL (7.6-11.0); Carbon Dioxide 19.9 mmol/L (21.0-32.0); Chloride 102 mmol/L (98-108); Glucose 126 mg/dL (70-99); Potassium 4.3 mmol/L (3.3-5.1)
--- OUTSIDE RECORDS SUMMARY | 2025-06-01 19:49 | XMS RPT_ITS | CCD ---
Author Organization [facility] Care Team Providers Care Geriatric Personal Care Aide Name Role Phone Margarita LOGAN, Carmina Willis Unavailable Unavailable Ramos, Erica Unavailable Unavailable DeFinis, Harumi Y Unavailable Unavailable Ramos, Erica Unavailable Unavailable Adonis, Dr. Teo Muller Primary Care Provider Adonis, Dr. Teo Muller Referring Provider Oziel DE LEON, ROOFING LABORER-C Brinda Attending Provider Dr. Costa Ashby Attending Provider Adonis, Dr. Teo Muller Primary Care Provider Adonis, Dr. Teo Muller Referring Provider Adonis, Dr. Teo Muller Primary Care Provider Adonis, Dr. Teo Muller Referring Provider Lavon DE LEON, ROOFING LABORER-C Lois Attending Provider Dr. Hank Ray Attending Provider Dr. Reinaldo Romero Attending Provider Adonis, Dr. Teo Muller Primary Care Provider [phone] Adonis, Dr. Teo Muller Referring Provider Lavon DE LEON, ROOFING LABORER-C Lois Attending Provider Dr. Hank Ray Attending Provider Dr. Reinaldo Romero Attending Provider [phone] Lavon ROOFING LABORER, ROOFING LABORER-C Lois Referring Provider Wilbert DE LEON, ROOFING LABORER-C Jada Attending Provider Adonis, Dr. Teo Muller Primary Care Provider Adonis, Dr. Teo Muller Referring Provider Adonis, Dr. Teo Muller Primary Care Provider Adonis, Dr. Teo Muller Referring Provider Dr. Hank Ray Attending Provider Dr. Reinaldo Romero Attending Provider [phone] Wilbert ROOFING LABORER, ROOFING LABORER-C Jada Attending Provider Adonis, Dr. Teo Muller Primary Care Provider [phone] Adonis, Dr. Teo Muller Referring Provider LIOR Flores Attending Provider Dr. Javed Crockett Attending Provider Dr. Hank Ray Attending Provider Adonis, Dr. Teo Muller Primary Care Provider Adonis, Dr. Teo Muller Referring Provider LIOR Flores Attending Provider Dr. Javed Crockett Attending Provider [phone] Dr. Hank Ray Attending Provider Adonis QUIÑONES, Dr. Teo Muller Primary Care Provider Dr. Teo Lamb MD, Chi Referring Provider Lavon DE LEON-Lois Bansal Attending Provider Adonis QUIÑONES, Dr. Teo Muller Attending Provider Adonis, Teo Chi Attending Unavailable Adonis, Teo Chi Primary Care Unavailable Adonis, Teo Chi Referring Unavailable Adonis, Teo Chi Primary Care Unavailable Adonis, Teo Chi Attending Unavailable Adonis, Teo Chi Referring Unavailable Adonis, Teo Chi Primary Care Unavailable Adonis, Teo Chi Attending Unavailable Lois Doll Attending Unavailable Adonis, Teo Chi Referring Unavailable Adonis, Teo Chi Primary Care Unavailable Wilbert ROOFING LABORER, Jada Attending Unavailable Adonis, Teo Chi Referring Unavailable Adonis, Teo Chi Primary Care Unavailable Hank Ray Attending Unavailable Adonis, Teo Chi Referring Unavailable Adonis, Teo Chi Primary Care Unavailable Adonis, Teo Chi Attending Unavailable Adonis, Teo Chi Referring Unavailable Adonis, Teo Chi Primary Care Unavailable Adonis, Teo Chi Referring Unavailable Teo Lamb Chi Attending Unavailable Teo Lamb Chi Primary Care Unavailable Allergies Allergy Classification Reported Allergen(s) Allergy Type Date of Onset Reaction(s) Facility (4 sources) shellfish, unspecified; Translations: [SHELLFISH] food allergy 01-08-2011 ? [facility] Work Phone: Medications Current Medications Medication Drug Class(es) Dates Sig (Normalized) Sig (Original) [id number] 200 actuat albuterol 0.09 mg/actuat metered dose inhaler (20 sources) beta2-Adrenergic Agonist Start: 06-20-2018 Albuterol Sulfate 90 mcg/actuation HFA aerosol inhaler Active 1 - 2 NMA INHALATION EVERY 6 HOURS NEEDED as needed for Wheezing June 20, 2018 1:22pm Start: 06-20-2018 take 1 puff(s) by in halation every six hours as needed Albuterol Sulfate Active 1 - 2 PUFF INHALATION EVERY 6 HOURS NEEDED June 20, 2018 1:22pm Start: 06-20-2018 take 1 puff(s) by in halation every six hours as needed Albuterol Sulfate Active 1 - 2 PUFF INHALATION EVERY 6 HOURS NEEDED June 20, 2018 1:22pm Start: 04-07-2018 End: 06-20-2018 Albuterol Sulfate 1 PUFF inh aler Discontinued 1 - 2 NMA INHALATION EVERY 6 HOURS NEEDED as needed for Wheezing April 07, 2018 12:00am June 20, 2018 1:23pm Start: 04-07-2018 End: 06-20-2018 take 1 puff(s) by inhalation every six hours as needed Albuterol Sulfate Discontinued 1 - 2 PUFF INHALATION EVERY 6 HOURS NEEDED April 07, 2018 12:00am June 20, 2018 1:23pm Start: 11-10-2015 PROAIR HFA 108 (90 Base) MCG/ACT AERS as needed ALBUTEROL SULFATE [id number] Costa Ashby MD Start: 11-10-2015 PROAIR HFA 108 (90 Base) MCG/ACT AERS as needed ALBUTEROL SULFATE [id number] Costa Ashby MD aspirin 81 mg delayed release oral tablet (20 sources) Nonsteroidal Anti-inflammatory Drug Start: 12-08-2018 Aspirin (Adult Lo w Dose Aspirin) 81 mg tablet,delayed release (DR/EC) Active 81 mg PO DAILY December 08, 2018 1:00am Start: 05-11-2018 End: 12-08-2018 Aspirin 325 MG tablet Discon tinued 81 mg PO DAILY@0800 May 11, 2018 10:11am December 08, 2018 11:41am HEART HEALT/BLOOD THINNER Start: 05-11-2018 End: 12-08-2018 take 81 mg by mouth once daily Aspirin Discontinued 81 MG PO DAILY@0800 May 11, 2018 10:11am December 08, 2018 11:41am Start: 04-08-2018 End: 05-11-2018 take 1 tablet by mouth once daily Aspirin 325 MG tablet Discontinued 325 mg PO DAILY@0800 30 0 April 08, 2018 12:00am May 11, 2018 10:11am Start: 12-04-2017 End: 04-08-2018 take 1 tablet by mouth once daily Aspirin (Adult Aspirin Regimen) 81 mg tablet,delayed release (DR/EC) Discontinued 81 mg PO DAILY 0 December 04, 2017 1:00am April 08, 2018 3:07pm Start: 10-10-2017 End: 12-04-2017 take 1 tablet by mouth once daily Aspirin 325 mg tablet Discontinued 325 mg PO daily October 10, 2017 1:00am December 04, 2017 3:25pm Start: 01-08-2011 take 1 tablet by santo th once daily ECOTRIN LOW STRENGTH 81 MG TBEC One tablet by mouth daily ASPIRIN [id number] Thelma Bean Start: 01-08-2011 take 1 tablet by santo th once daily ASPIRIN EC 81 MG TBEC One tablet by mouth daily ASPIRIN [id number] Carolyn Wright RN cilostazol 100 mg oral tablet (20 sources) Phosphodiesterase 3 Inhibitor Start: 09-01-2020 take 1 tablet by mouth once daily Cilostazol 100 mg tablet Active 100 mg PO .QD September 01, 2020 1:00am PAD Start: 10-10-2017 End: 09-01-2020 take 1 tablet by mouth once daily Cilostazol 50 mg tablet Discontinued 100 mg PO DAILY October 10, 2017 1:00am September 01, 2020 9:58am PAD Start: 10-10-2017 End: 09-01-2020 take 100 mg by mouth once daily Cilostazol Discontinue d 100 MG PO DAILY October 10, 2017 1:00am September 01, 2020 9:58am Start: 01-08-2011 take 1 tablet by santo th twice daily PLETAL 100 MG TABS One tablet by mouth twice daily CILOSTAZOL [id number] Costa Ashby MD Ggpakdnw-Uxbaf-Gbo 149-Hyal Ac (Glucos Chond Cplx Advanced) 750 mg-100 mg- 125 mg-1.65 mg tablet (2 sources) Start: 10-10-2017 take 1 tablet by mouth twice daily before mealtime Ietsrtdo-Pwfzb-Peh 149-Hyal Ac (Glucos Chond Cplx Advanced) 750 mg-100 mg- 125 mg-1.65 mg tablet Active 1 {tbl} PO TWICE A DAY 0 October 10, 2017 1:00am SUPPLEMENT Start: 10-10-2017 take 1 tablet by santo twice daily before mealtime Gylewxfp-Ebcwg-Wuq 149-Hyal Ac (Glucos Chond Cplx Advanced) 750 mg-100 mg- 125 mg-1.65 mg tablet Active 1 {tbl} PO TWICE A DAY October 10, 2017 1:00am mvomxxitido-gyznyzjsr-zdjk28 9-hyal 750 mg-100 mg-125 mg-1.65 mg tablet (10 sources) Start: 10-10-2017 take 1 tablet by mouth twice daily rgcppozwhhm-uurzvemje-xugh309-hyal 750 mg-100 mg-125 mg-1.65 mg tablet Active 1 TABLET PO TWICE A DAY October 10, 2017 5:07pm Start: 10-10-2017 take 1 tablet by mouth twice daily kkyhpcusjui-ubssjfyci-vzxl769-hyal 750 m g-100 mg-125 mg-1.65 mg tablet Active 1 TABLET PO TWICE A DAY October 10, 2017 12:00am Start: 10-10-2017 take 1 tablet by mouth twice daily cdjtozktkpc-qsqtivmrn-sjsj150-hyal 750 m g-100 mg-125 mg-1.65 mg tablet Active 1 TABLET PO TWICE A DAY October 10, 2017 1:00am hydroCHLOROthiazide 25 mg oral tablet (20 sources) Thiazide Diuretic Start: 12-17-2022 End: 04-25-2025 take 1 tablet by mouth once daily Hydrochlorothiazide 25 mg tablet Active 25 mg PO DAILY 90 3 April 25, 2025 7:49am Start: 06-04-2022 End: 11-29-2022 take 1 tablet by mouth once daily Hydrochlorothiazide 25 mg tablet Discontinued 25 mg PO DAILY June 04, 2022 12:00am November 29, 2022 10:00am Start: 09-11-2021 End: 09-11-2021 take 1 tablet by mouth once daily Hydrochlorothiazide 25 mg tablet Discontinued 25 mg PO DAILY 90 3 September 11, 2021 1:00am September 11, 2021 12:05pm Start: 09-01-2020 End: 01-17-2021 take 1 tablet by mouth once daily Hydrochlorothiazide 25 mg tablet Discontinued 25 mg PO DAILY 30 0 September 01, 2020 4:24pm January 17, 2021 10:09am awaiting mail order rx 24 hr isosorbide mononitrate 30 mg extended release oral tablet (20 sources) Start: 12-04-2017 End: 05-11-2025 take 1 tablet by mouth at bedtime, then take 1 tablet by mouth every twenty-four hours Isosorbide Mononitrate 30 mg tablet extended release 24 hr Active 30 mg PO AT BEDTIME 90 3 May 11, 2025 9:08am for blood pressure Start: 10-10-2017 End: 12-04-2017 take 1 tablet by mouth twice daily Isosorbide Mononitrate 20 mg tablet Discontinued 20 mg PO TWICE A DAY October 10, 2017 1:00am December 04, 2017 3:24pm Start: 01-08-2011 take 1 tablet by santo once daily ISOSORBIDE MONONITRATE ER 30 MG [id number] One tablet by mouth daily (Imdur) ISOSORBIDE MONONITRATE [id number] Costa Ashby MD levothyroxine sodium 0.025 mg oral tablet (12 sources) l-Thyroxine Start: 09-01-2020 take 1 tablet by mouth once daily Levothyroxine 25 mcg tablet Active 25 ug PO DAILY September 01, 2020 1:00am loratadine 10 mg oral tablet (20 sources) Start: 10-10-2017 End: 12-08-2018 take 1 tablet by mouth once daily as needed Loratadine (Claritin) 10 mg tablet Active 10 mg PO daily as needed for ALLERGIES December 08, 2018 11:43am Isgkhjsu-Evt-Mh-Lycop en-Lutein (Centrum Silver Men) 300-600-300 mcg Tablet (5 sources) Start: 04-18-2021 take 300-600 tablets by mouth once daily Mwpgmbis-Zwy-Oh-Lyco pen-Lutein (Centrum Silver Men) 300-600-300 mcg Tablet Active 1 TABLET PO DAILY April 18, 2021 8:46am Start: 04-18-2021 take 300-600 tablets by mouth once daily Hjsxwujx-Rqm-Jy-Lycopen-Lutein (Centrum Silver Men) 300-600-300 mcg Tablet Active 1 TABLET PO DAILY April 17, 2021 11:00pm Start: 04-18-2021 take 300-600 tablets by mouth once daily Qtksdvrx-Jyb-Ql-Lycopen-Lutein (Centrum Silver Men) 300-600-300 mcg Tablet Active 1 TABLET PO DAILY April 18, 2021 12:00am Yc-Uhd-Zsfmm-H0-Hkycvof-Tazn in (Centrum Silver Men) 300-600-300 mcg Tablet (7 sources) Start: 04-18-2021 Ig-Hle-Uttrc-S5-Uaslpcc-Hxgk in (Centrum Silver Men) 300-600-300 mcg Tablet Active 1 {tbl} PO DAILY April 18, 2021 12:00am Start: 04-18-2021 take 300-600 tablets by mouth once daily Gm-Yhy-Kijyi-T6-Gnmbbfs-Dvfoto (Centrum Silver Men) 300-600-300 mcg Tablet Active 1 TABLET PO DAILY April 17, 2021 11:00pm Start: 04-18-2021 take 300-600 tablets by mouth once daily Zy-Juo-Yljxp-A1-Hyppbrk-Kgrnka (Centrum Silver Men) 300-600-300 mcg Tablet Active 1 TABLET PO DAILY April 18, 2021 12:00am [place]-3 Fatty Acids (Super [place]-3) 1,000 mg capsule (20 sources) Start: 12-02-2022 take 3 capsules by mouth twice daily [place]-3 Fatty Acids (Super [place]-3) 1,000 mg capsule Active 1000 mg PO TWICE A DAY December 02, 2022 2:48pm SUPPLEMENT Start: 12-02-2022 take 3 capsules by m outh twice daily [place]-3 Fatty Acids (Super [place]-3) 1,000 mg capsule Active 1000 mg PO TWICE A DAY December 02, 2022 2:48pm Start: 12-02-2022 take 3 capsules by m outh twice daily [place]-3 Fatty Acids (Super [place]-3) 1,000 mg capsule Active 1000 MG PO TWICE A DAY December 02, 2022 2:48pm Start: 12-02-2022 take 3 capsules by m outh twice daily [place]-3 Fatty Acids (Super [place]-3) 1,000 mg capsule Active 1000 MG PO TWICE A DAY December 02, 2022 1:48pm Start: 10-10-2017 take 3 capsules by m outh once daily [place]-3 Fatty Acids (Super [place]-3) 1,000 mg capsule Active 1000 MG PO daily October 10, 2017 5:09pm Start: 10-10-2017 End: 12-02-2022 take 3 capsules by mouth once daily [place]-3 Fatty Acids (Super [place]-3) 1,000 mg capsule Discontinued 1000 mg PO daily October 10, 2017 1:00am December 02, 2022 2:48pm SUPPLEMENT Start: 10-10-2017 End: 12-02-2022 take 3 capsules by mouth once daily [place]-3 Fatty Acids (Super [place]-3) 1,000 mg capsule Discontinued 1000 mg PO daily October 10, 2017 1:00am December 02, 2022 2:48pm Start: 10-10-2017 End: 12-02-2022 take 3 capsules by mouth once daily [place]-3 Fatty Acids (Super [place]-3) 1,000 mg capsule Discontinued 1000 MG PO daily October 10, 2017 1:00am December 02, 2022 2:48pm Start: 10-10-2017 End: 12-02-2022 take 3 capsules by mouth once daily [place]-3 Fatty Acids (Super [place]-3) 1,000 mg capsule Discontinued 1000 MG PO daily October 10, 2017 12:00am December 02, 2022 1:48pm Start: 10-10-2017 take 3 capsules by m outh once daily [place]-3 Fatty Acids (Super [place]-3) 1,000 mg capsule Active 1000 MG PO daily October 10, 2017 1:00am omeprazole 20 mg delayed release oral capsule (20 sources) Proton Pump Inhibitor Start: 04-08-2018 take 1 capsule by mouth twice daily Omeprazole 20 MG capsule Active 20 mg PO TWICE A DAY April 08, 2018 12:00am GERD Start: 12-04-2017 End: 04-23-2018 take 1 capsule by mouth once daily Omeprazole 20 mg capsule,delayed release(DR/EC) Discontinued 20 mg PO daily December 04, 2017 1:00am April 23, 2018 3:15pm Start: 10-10-2017 End: 12-04-2017 take 10 mg by mouth once daily Omeprazole Magnesium (P rilosec) 2.5 mg susp,delayed release for recon Discontinued 10 mg PO daily October 10, 2017 1:00am December 04, 2017 3:28pm Start: 01-08-2011 take 1 tablet by santo th twice daily PRILOSEC 20 MG CPDR One tablet by mouth twice daily OMEPRAZOLE [id number] Thelma Bean Start: 01-08-2011 take 1 tablet by santo th twice daily PRILOSEC 20 MG CPDR One tablet by mouth twice daily OMEPRAZOLE [id number] Thelma Bean tamsulosin hydrochloride 0.4 mg oral capsule (20 sources) alpha-Adrenergic Stevie Start: 01-17-2021 End: 09-11-2021 take 1 capsule by mouth at bedtime Tamsulosin 0.4 mg capsule Active 0.4 mg PO AT BEDTIME September 11, 2021 1:00am verapamil hydrochloride 80 mg oral tablet (20 sources) Calcium Channel Stevie Start: 08-17-2024 End: 08-17-2024 take 1 tablet by mouth once daily in the morning, then take 1 tablet by mouth once daily in the evening Verapamil 80 mg tablet Active 0 .ROUTE .COMPLEX 225 3 August 17, 2024 8:47am cluster headaches Take 1 tablet orally every morning and 1 1/2 tablets every evening Start: 09-17-2021 End: 08-17-2024 take 1 tablet by mouth three times daily Verapamil 80 mg tablet Discontinued 80 mg PO THREE TIMES A DAY 270 2 December 02, 2023 9:50am August 17, 2024 8:47am cluster headaches Start: 01-17-2021 End: 03-22-2021 take 1 capsule by mouth every twenty-four hours at bedtime Verapamil 200 mg capsule, [address] Discontinued 200 mg PO AT BEDTIME January 17, 2021 12:00am March 22, 2021 8:49am Start: 01-17-2021 End: 09-17-2021 Verapamil 80 mg tablet Disco ntinued 80 mg PO THREE TIMES A DAY April 18, 2021 8:49am September 11, 2021 12:48pm BP take twice a day but may take 3 times a day for cluster WU Start: 12-08-2018 End: 12-25-2020 take 1 capsule by mouth every twenty-four hours at bedtime Verapamil 200 mg capsule, [address] Discontinued 200 mg PO AT BEDTIME 90 3 August 11, 2020 3:39pm December 25, 2020 6:44pm Start: 12-04-2017 End: 12-08-2018 take 1 capsule by mouth every twenty-four hours at bedtime Verapamil (Verelan) 120 mg capsule,ext rel. pellets 24 hr Discontinued 200 mg PO AT BEDTIME December 04, 2017 3:28pm December 08, 2018 12:07pm CLUSTER HEADACHES Start: 10-10-2017 End: 12-04-2017 take 1 capsule by mouth every twenty-four hours Verapamil (Verelan) 120 mg capsule,ext rel. pellets 24 hr Discontinued 120 mg PO ONCE October 10, 2017 1:00am December 04, 2017 3:29pm Start: 01-08-2011 take 1 tablet by santo th once daily in the evening for headache VERELAN PM 200 MG [id number] One tablet by mouth daily For cluster headaches VERAPAMIL HCL [id number] Thelma Bean Start: 01-08-2011 take 1 tablet by santo th once daily in the evening for headache VERELAN PM 200 MG [id number] One tablet by mouth daily For cluster headaches VERAPAMIL HCL [id number] Thelma Bean Completed/Discontinued Medications Medication Drug Class(es) Dates Sig (Normalized) Sig (Original) acetaminophen 325 mg / HYDROcodone bitartrate 5 mg oral tablet (12 sources) Opioid Agonist Start: 05-18-2018 End: 06-20-2018 Hydrocodone-Acetamino phen 1 TABLET tablet Discontinued 1 {tbl} PO EVERY 6 HOURS NEEDED as needed for Pain 8 3 0 May 18, 2018 12:00am June 20, 2018 1:23pm Postoperative pain Other acute postprocedural pain Start: 05-18-2018 End: 06-20-2018 take 1 tablet by mouth every six hours as needed Hydrocodone-Acetaminophen Discontinued 1 TABLET PO EVERY 6 HOURS NEEDED 8 3 May 18, 2018 12:00am June 20, 2018 1:23pm amitriptyline hydrochloride 10 mg oral tablet (20 sources) Tricyclic Antidepressant Start: 01-17-2021 End: 12-02-2022 Amitriptyline 10 mg tablet Discontinued 25 mg PO AT BEDTIME January 17, 2021 9:34am December 02, 2022 2:47pm FIBROMYALGIA Start: 01-17-2021 End: 12-02-2022 take 25 mg by mouth at bedtime Amitriptyline Discontin ued 25 MG PO AT BEDTIME January 17, 2021 9:34am December 02, 2022 2:47pm Start: 12-08-2018 End: 01-17-2021 take 1 tablet by mouth at bedtime Amitriptyline 10 mg tablet Discontinued 10 mg PO AT BEDTIME December 08, 2018 11:40am January 17, 2021 9:37am FIBROMYALGIA Start: 10-10-2017 End: 12-08-2018 Amitriptyline 10 mg tablet Discontinued 25 mg PO AT BEDTIME October 10, 2017 1:00am December 08, 2018 11:45am FIBROMYALGIA Start: 10-10-2017 End: 12-08-2018 take 25 mg by mouth at bedtime Amitriptyline Discontin ued 25 MG PO AT BEDTIME October 10, 2017 1:00am December 08, 2018 11:45am Start: 01-08-2011 take 1 tablet by santo once daily AMITRIPTYLINE HCL 25 MG TABS (Elavil) One tablet by mouth daily AMITRIPTYLINE HCL [id number] Thelma Bean amoxicillin 500 mg oral capsule (12 sources) Penicillin-class Antibacterial Start: 10-10-2017 End: 10-17-2017 take 1 capsule by mouth twice daily Amoxicillin 500 mg capsule Discontinued 500 mg PO TWICE A DAY 14 7 0 October 10, 2017 1:00am October 16, 2017 1:00am October 17, 2017 1:06am atorvastatin 80 mg oral tablet (20 sources) HMG-CoA Reductase Inhibitor Start: 10-10-2017 End: 12-04-2017 take 1 tablet by mouth once daily Atorvastatin (Lipitor) 10 mg tablet Discontinued 10 mg PO daily October 10, 2017 1:00am December 04, 2017 3:26pm Start: 10-03-2017 End: 02-07-2025 take 1 tablet by mouth at bedtime Atorvastatin 80 mg tablet Discontinued 80 mg PO AT BEDTIME 90 3 April 19, 2024 8:22am February 07, 2025 7:56am CHOLESTEROL Start: 01-18-2014 take 2 tablets by mo ut once daily LIPITOR 40 MG TABS Two tablets by mouth daily ATORVASTATIN CALCIUM [id number] Naz Scanlon PA-C Start: 01-18-2014 take 1 tablet by santo th once daily LIPITOR 80 MG TABS One tablet by mouth daily ATORVASTATIN CALCIUM [id number] Costa Ashby MD Start: 01-08-2011 take 1 tablet by santo th once daily LIPITOR 40 MG TABS One tablet by mouth daily ATORVASTATIN CALCIUM [id number] Costa Ashby MD Beclomethasone Dipropionate (20 sources) Corticosteroid Start: 01-27-2024 End: 01-27-2025 take 80 ug by inhalation twice daily as needed Beclomethasone Dipropionate (Qvar Redihaler) 80 mcg/actuation HFA aerosol breath activated Discontinued 1 NMA INHALATION TWICE A DAY as needed January 27, 2024 10:05am January 27, 2025 10:20am Start: 03-22-2021 take 80 ug by inhala tion twice daily Beclomethasone Dipropionate (Qvar Redihaler) 80 mcg/actuation HFA aerosol breath activated Active 1 INH INHALATION TWICE A DAY March 22, 2021 8:52am Start: 03-22-2021 End: 01-27-2024 take 80 ug by inhalation twice daily Beclomethasone Dipropionate (Qvar Redihaler) 80 mcg/actuation HFA aerosol breath activated Discontinued 1 NMA INHALATION TWICE A DAY March 22, 2021 12:00am January 27, 2024 10:07am Start: 03-22-2021 take 80 ug by inhala tion twice daily Beclomethasone Dipropionate (Qvar Redihaler) 80 mcg/actuation HFA aerosol breath activated Active 1 INH INHALATION TWICE A DAY March 21, 2021 11:00pm Start: 03-22-2021 take 80 ug by inhala tion twice daily Beclomethasone Dipropionate (Qvar Redihaler) 80 mcg/actuation HFA aerosol breath activated Active 1 INH INHALATION TWICE A DAY March 22, 2021 12:00am Start: 05-11-2018 End: 06-20-2018 take 1 puff(s) by inhalation twice daily Beclomethasone Dipropionate Discontinued 1 PUFF INHALATION TWICE A DAY May 11, 2018 10:11am June 20, 2018 1:23pm Start: 05-11-2018 End: 06-20-2018 Beclomethasone Dipropionate 1 PUFF inhaler Discontinued 1 NMA INHALATION TWICE A DAY May 11, 2018 12:00am June 20, 2018 1:23pm ASTHMA Start: 05-11-2018 End: 06-20-2018 Beclomethasone Dipropionate 1 PUFF inhaler Discontinued 1 NMA INHALATION TWICE A DAY May 11, 2018 12:00am June 20, 2018 1:23pm Start: 05-11-2018 End: 06-20-2018 take 1 puff(s) by inhalation twice daily Beclomethasone Dipropionate Discontinued 1 PUFF INHALATION TWICE A DAY May 10, 2018 11:00pm June 20, 2018 12:23pm Start: 05-11-2018 End: 06-20-2018 take 1 puff(s) by inhalation twice daily Beclomethasone Dipropionate Discontinued 1 PUFF INHALATION TWICE A DAY May 11, 2018 12:00am June 20, 2018 1:23pm benzocaine 15 mg / menthol 10 mg oral lozenge (5 sources) Standardized Chemical Allergen Start: 10-10-2023 End: 01-27-2025 Benzocaine-Menthol (Chloraseptic Max) 15-10 mg lozenge Discontinued 1 NMA MUCOUS MEM .4 times daily as needed for sore throat October 10, 2023 1:00am January 27, 2025 10:20am Start: 10-10-2023 Benzocaine-Men thol (Chloraseptic Max) 15-10 mg lozenge Active 1 LOZENGE MUCOUS MEM .4 times daily October 10, 2023 1:00am BUDESONIDE-FORMOTEROL FUMARATE (4 sources) Corticosteroid, beta2-Adrenergic Agonist Start: 01-08-2011 take 1 puff(s) by inhalation once daily as needed SYMBICORT 80-4.5 MCG/ACT AERO Inhale 1 puff daily as needed BUDESONIDE-FORMOTEROL FUMARATE [id number] Thelma Bean Start: 01-08-2011 SYMBICORT 80-4 .5 MCG/ACT AERO Inhale 1 puff daily as needed BUDESONIDE-FORMOTEROL FUMARATE [id number] Thelma Bean cephalexin 500 mg oral capsule (12 sources) Cephalosporin Antibacterial Start: 06-20-2018 End: 12-08-2018 take 1 capsule by mouth every twelve hours Cephalexin 500 MG capsule Discontinued 500 mg PO EVERY 12 HOURS 14 0 June 20, 2018 12:00am December 08, 2018 11:42am GLUCOSAMINE-CHOND ROITIN CAPS (8 sources) Start: 01-08-2011 End: 07-20-2013 take 1 tablet by mouth once daily GLUCOSAMINE-CHONDR OITIN CAPS One tablet by mouth daily GLUCOSAMINE-CHONDR OITIN CAPS [id number] Costa Ashby MD Start: 01-08-2011 take 1 tablet by santo once daily GLUCOSAMINE-CHONDROITIN CAPS One tablet by mouth daily GLUCOSAMINE-CHONDROITIN CAPS [id number] Thelma Bean clopidogrel 75 mg oral tablet (20 sources) [id number] Platelet Inhibitor Start: 05-11-2018 End: 05-18-2018 take 1 tablet by mouth once daily Clopidogrel 75 MG tablet Discontinued 75 mg PO DAILY May 11, 2018 12:00am May 18, 2018 6:58am BLOOD THINNER Start: 07-20-2013 End: 08-11-2014 take 1 tablet by mouth once daily PLAVIX 75 MG TABS One tablet by mouth daily CLOPIDOGREL BISULFATE [id number] Costa Ashby MD Cyclosporine (Restasis) 0.05 % dropperette (9 sources) Start: 11-29-2022 End: 01-27-2024 Cyclosporine (Restasis) 0.05 % dropperette Discontinued 1 NMA OPHTHALMIC Q12H November 29, 2022 1:00am January 27, 2024 10:05am Start: 11-29-2022 Cyclosporine ( Restasis) 0.05 % dropperette Active 1 DRP OPHTHALMIC Q12H November 29, 2022 1:00am Start: 11-29-2022 Cyclosporine ( Restasis) 0.05 % dropperette Active 1 DRP OPHTHALMIC Q12November 29, 2022 12:00am enalapril maleate 20 mg oral tablet (20 sources) Angiotensin Converting Enzyme Inhibitor Start: 06-04-2022 End: 03-29-2024 take 1 tablet by mouth twice daily Enalapril Maleate 20 mg tablet Discontinued 20 mg PO TWICE A DAY 180 3 March 26, 2023 4:23pm March 29, 2024 8:10am BP Start: 04-08-2018 End: 06-04-2022 take 1 tablet by mouth twice daily Enalapril Maleate (Vasotec) 10 mg tablet Discontinued 10 mg PO TWICE A DAY 180 3 January 07, 2022 12:08pm June 04, 2022 9:54am BP Start: 10-10-2017 End: 12-18-2017 take 1 tablet by mouth twice daily Enalapril Maleate 10 mg tablet Discontinued 10 mg PO TWICE A DAY 28 14 0 December 04, 2017 3:26pm December 17, 2017 1:00am December 18, 2017 1:05am Start: 10-10-2017 End: 12-04-2017 Enalapril Maleate 10 mg tabl et Discontinued PO 28 14 0 October 10, 2017 1:00am December 04, 2017 3:29pm Start: 07-20-2013 take 1 tablet by santo th twice daily ENALAPRIL MALEATE 10 MG TABS One tablet by mouth twice daily ENALAPRIL MALEATE [id number] Costa Ashby MD Start: 07-20-2013 take 1 tablet by santo th once daily ENALAPRIL MALEATE 10 MG TABS One tablet by mouth daily ENALAPRIL MALEATE [id number] Dallas Kline MD Start: 01-08-2011 take 1 tablet by santo th in the morning, then take 0.5 tablet by mouth in the evening VASOTEC 5 MG TABS 1 tablet by mouth in the morning & 1/2 tablet in the evening ENALAPRIL MALEATE [id number] Costa Ashby MD fluorometholone 1 mg/ml ophthalmic suspension (9 sources) Corticosteroid Start: 11-29-2022 End: 01-27-2025 Fluorometholone 0.1 % drops,suspension Discontinued 1 NMA OPHTHALMIC EVERY 6 HOURS November 29, 2022 1:00am January 27, 2025 10:21am fluticasone furoate 0.0275 mg/actuat metered dose nasal spray (16 sources) Corticosteroid Start: 06-20-2018 End: 05-27-2021 Fluticasone Furoate (Flonase Sensimist) 27.5 mcg/actuation spray,suspension Discontinued 1 NMA INTRANASAL DAILY as needed for allergies June 20, 2018 12:00am May 27, 2021 8:41am Start: 06-20-2018 End: 05-27-2021 Fluticasone Furoate (Flonase Sensimist) 27.5 mcg/actuation spray,suspension Discontinued 1 SPRAY INTRANASAL DAILY June 20, 2018 12:00am May 27, 2021 8:41am Start: 01-08-2011 take 1 puff(s) by in halation once daily as needed VERAMYST 27.5 MCG/SPRAY SUSP Inhale 1 puff daily as needed FLUTICASONE FUROATE [id number] Thelma Bean Start: 01-08-2011 VERAMYST 27.5 MCG/SPRAY SUSP Inhale 1 puff daily as needed FLUTICASONE FUROATE [id number] Thelma Bean folic acid 1 mg oral tablet (20 sources) Start: 12-08-2018 End: 01-27-2024 take 1 tablet by mouth once daily Folic Acid 1 mg tablet Discontinued 1 mg PO DAILY December 08, 2018 1:00am January 27, 2024 10:06am Start: 10-10-2017 End: 12-08-2018 take 1 mg by mouth once daily Folic Acid 20 mg capsule Discontinued 1 mg PO DAILY October 10, 2017 1:00am December 08, 2018 11:42am SUPPLEMENT Start: 01-08-2011 take 1 tablet by santo th once daily FOLIC ACID 1 MG TABS One tablet by mouth daily FOLIC ACID [id number] Thelma Bean gabapentin 300 mg oral capsule (20 sources) Anti-epileptic Agent Start: 01-17-2021 End: 02-21-2025 take 1 capsule by mouth once daily in the evening, then take 2 capsules by mouth once daily Gabapentin 300 mg capsule Discontinued 0 .ROUTE .COMPLEX 21 7 0 February 14, 2025 12:00am February 20, 2025 12:00am February 21, 2025 12:08am Take 1 capsule orally every evening and 2 capsules nightly. Start: 04-07-2018 End: 12-02-2022 take 1 tablet by mouth at bedtime Gabapentin 600 MG tablet Discontinued 600 mg PO AT BEDTIME April 07, 2018 12:00am December 02, 2022 3:24pm FIBROMYALGIA Start: 12-04-2017 End: 01-17-2021 take 2 capsules by mouth at bedtime Gabapentin 300 mg capsule Discontinued 300 mg PO WITH DINNER December 04, 2017 1:00am January 17, 2021 9:37am PAIN 300 mg PO 1 in the pm and 2 at bedtime Start: 10-10-2017 End: 12-04-2017 take 1 capsule by mouth once daily Gabapentin (Neurontin) 100 mg capsule Discontinued 100 mg PO daily October 10, 2017 1:00am December 04, 2017 3:27pm Start: 01-08-2011 NEURONTIN 300 MG CAPS 1 tablet by mouth in the evening & 2 at night GABAPENTIN [id number] Thelma Bean Start: 01-08-2011 NEURONTIN 300 MG CAPS 1 tablet by mouth in the evening & 2 at night GABAPENTIN [id number] Thelma Bean glucosamine 1000 mg oral tablet (4 sources) Start: 07-20-2013 GLUCOSAMINE HC L TABS 1500mg GLUCOSAMINE HCL TABS Costa Ashby MD meloxicam 7.5 mg oral tablet (12 sources) Nonsteroidal Anti-inflammatory Drug Start: 10-10-2017 End: 12-04-2017 take 1 tablet by mouth once daily Meloxicam 7.5 mg tablet Discontinued 7.5 mg PO daily October 10, 2017 1:00am December 04, 2017 3:27pm 24 hr metoprolol succinate 100 mg extended release oral tablet (20 sources) beta-Adrenergic Stevie Start: 12-25-2020 End: 01-17-2021 take 1 tablet by mouth once daily Metoprolol Succinate 100 mg tablet extended release 24 hr Discontinued 100 mg PO DAILY 90 3 December 25, 2020 1:00am January 17, 2021 9:35am Start: 04-07-2018 End: 09-01-2020 take 1 tablet by mouth every twenty-four hours at bedtime Metoprolol Succinate 50 mg tablet extended release 24 hr Discontinued 50 mg PO AT BEDTIME 90 3 December 08, 2018 12:08pm September 01, 2020 10:22am BP Start: 12-04-2017 End: 09-01-2020 take 1 tablet by mouth once daily Metoprolol Succinate 50 mg tablet extended release 24 hr Discontinued 50 mg PO daily 90 3 December 04, 2017 3:29pm April 07, 2018 9:00pm Start: 10-10-2017 End: 12-04-2017 take 1 tablet by mouth once daily Metoprolol Succinate (Toprol Xl) 25 mg tablet extended release 24 hr Discontinued 25 mg PO daily October 10, 2017 1:00am December 04, 2017 3:24pm Start: 01-08-2011 take 1 tablet by mouth once da omaira TOPROL XL 50 MG [id number] One tablet by mouth daily METOPROLOL SUCCINATE [id number] Costa Ashby MD Start: 01-08-2011 take 1 tablet by mouth once da omaira TOPROL XL 50 MG [id number] One tablet by mouth daily METOPROLOL SUCCINATE [id number] Costa Ashby MD modafinil 100 mg oral tablet (20 sources) Sympathomimetic-like Agent Start: 10-10-2017 End: 09-01-2020 take 1 tablet by mouth once daily as needed Modafinil 100 mg tablet Discontinued 100 mg PO DAILY as needed for MEMORY December 08, 2018 11:44am September 01, 2020 9:57am Start: 10-10-2017 End: 12-08-2018 take 200 mg by mouth once daily Modafinil Discontinued 200 MG PO DAILY October 10, 2017 1:00am December 08, 2018 11:45am Start: 01-08-2011 take 1 tablet by santo once daily PROVIGIL 200 MG TABS One tablet by mouth daily MODAFINIL [id number] Thelma Bean MULTIPLE VITAMINS-MINERALS (3 sources) Start: 01-08-2011 take 1 tablet by mouth once daily CENTRUM SILVER TABS One tablet by mouth daily MULTIPLE VITAMINS-MINERALS [id number] Thelma Bean MULTIPLE VITAMINS-MINERALS (1 source) Start: 01-08-2011 take 1 tablet by mouth once daily CENTRUM SILVER TABS One tablet by mouth daily MULTIPLE VITAMINS-MINERALS [id number] Thelma Bean Twdyxyrv-Wha-Rt-Lycopen-L utein (Centrum Silver Men) 300-600-300 mcg tablet (5 sources) Start: 10-10-2017 End: 05-27-2021 take 300-600 tablets by mouth once daily Fecpratf-Wpv-Bw-Lycopen-L utein (Centrum Silver Men) 300-600-300 mcg tablet Discontinued 1 TABLET PO DAILY October 10, 2017 5:06pm May 27, 2021 8:41am Start: 10-10-2017 End: 05-27-2021 take 300-600 tablets by mouth once daily Hdiewbkl-Ltx-Eb-Lycopen-Lutein (Centrum Silver Men) 300-600-300 mcg tablet Discontinued 1 TABLET PO DAILY October 10, 2017 12:00am May 27, 2021 7:41am Start: 10-10-2017 End: 05-27-2021 take 300-600 tablets by mouth once daily Kteespgq-Hdd-Gv-Lycopen-Lutein (Centrum Silver Men) 300-600-300 mcg tablet Discontinued 1 TABLET PO DAILY October 10, 2017 1:00am May 27, 2021 8:41am Hq-Izl-Yjuii-E9-Bmsykyx-Rkeq in (Centrum Silver Men) 300-600-300 mcg tablet (7 sources) Start: 10-10-2017 End: 05-27-2021 Do-Pjc-Belll-J4-Kwkmcsh-Bfek in (Centrum Silver Men) 300-600-300 mcg tablet Discontinued 1 {tbl} PO DAILY 0 October 10, 2017 1:00am May 27, 2021 8:41am SUPPLEMENT Start: 10-10-2017 End: 05-27-2021 Fg-Qaz-Mseex-C5-Zmwroex-Tuhl in (Centrum Silver Men) 300-600-300 mcg tablet Discontinued 1 {tbl} PO DAILY October 10, 2017 1:00am May 27, 2021 8:41am Start: 10-10-2017 End: 05-27-2021 take 300-600 tablets by mouth once daily Ls-Fsy-Pntgy-Z3-Fvjsibn-Crfdkx (Centrum Silver Men) 300-600-300 mcg tablet Discontinued 1 TABLET PO DAILY October 10, 2017 12:00am May 27, 2021 7:41am Start: 10-10-2017 End: 05-27-2021 take 300-600 tablets by mouth once daily Ht-Veu-Xhidi-H6-Bbdlnsk-Wzlbak (Centrum Silver Men) 300-600-300 mcg tablet Discontinued 1 TABLET PO DAILY October 10, 2017 1:00am May 27, 2021 8:41am nitroglycerin 0.4 mg sublingual tablet (20 sources) Nitrate Vasodilator Start: 12-08-2018 End: 05-27-2021 Nitroglycerin (Nitrostat) 0.4 mg tablet, sublingual Discontinued 0.4 mg SL every 5 to 15 minutes as needed for Chest Pain December 08, 2018 1:00am May 27, 2021 8:41am Start: 12-08-2018 End: 05-27-2021 Nitroglycerin (Nitrostat) 0. 4 mg tablet, sublingual Discontinued 0.4 MG SL every 5 to 15 minutes December 08, 2018 1:00am May 27, 2021 8:41am Start: 10-10-2017 End: 12-08-2018 Nitroglycerin (Nitrostat) 0. 3 mg tablet, sublingual Discontinued 0.3 mg SL Q5M as needed for cp October 10, 2017 1:00am December 08, 2018 11:44am Start: 10-10-2017 End: 12-08-2018 Nitroglycerin (Nitrostat) 0. 3 mg tablet, sublingual Discontinued 0.3 MG SL Q5M October 10, 2017 1:00am December 08, 2018 11:44am Start: 01-08-2011 NITROSTAT 0.4 MG SUBL 1 tablet under tongue every 5 min up to 3 X NITROGLYCERIN [id number] Naz Scanlon PA-C omega-3 acid ethyl esters (custodial) 1000 mg oral capsule (9 sources) Start: 11-29-2022 End: 12-02-2022 [place]-3 Acid Ethyl Esters 1 gram capsule Discontinued 1 NMA PO TWICE A DAY November 29, 2022 1:00am December 02, 2022 2:48pm Start: 11-29-2022 End: 12-02-2022 take 1 capsule by mouth twice daily [place]-3 Acid Ethyl Esters Discontinued 1 CAP PO TWICE A DAY November 29, 2022 1:00am December 02, 2022 2:48pm OMEGA-3 FATTY ACIDS CPDR (3 sources) Start: 01-08-2011 take 1 tablet by mouth once daily OMEGA 3 CPDR One tablet by mouth daily OMEGA-3 FATTY ACIDS CPDR [id number] Thelma Bean OMEGA-3 FATTY ACIDS CPDR (1 source) Start: 01-08-2011 take 1 tablet by mouth once daily OMEGA 3 CPDR One tablet by mouth daily OMEGA-3 FATTY ACIDS CPDR [id number] Thelma Bean predniSONE 20 mg oral tablet (4 sources) Start: 02-24-2024 End: 07-05-2024 take 3 tablets by mouth once daily at mealtime Prednisone 20 mg tablet Discontinued 60 mg PO daily February 24, 2024 12:00am February 24, 2024 2:05pm administer with food or milk riboflavin 100 mg oral tablet (20 sources) Start: 10-10-2017 End: 01-27-2025 take 1 tablet by mouth twice daily Riboflavin (Vitamin B2) 100 mg tablet Discontinued 100 mg PO TWICE A DAY October 10, 2017 1:00am January 27, 2025 10:21am SUPPLEMENT Start: 01-08-2011 take 1 capsule by [facility] twice daily RIBOFLAVIN CAPS 10Mg, 200mg po BID RIBOFLAVIN CAPS [id number] Thelma Bean Start: 01-08-2011 take 1 capsule by n[facility] sarah twice daily RIBOFLAVIN CAPS 200mg po BID RIBOFLAVIN CAPS [id number] Costa Ashby MD Start: 01-08-2011 take 1 capsule by mo sarah twice daily RIBOFLAVIN CAPS 200mg po BID RIBOFLAVIN CAPS [id number] Costa Ashby MD Start: 01-08-2011 RIBOFLAVIN CAP S 10Mg, 200mg po BID RIBOFLAVIN CAPS [id number] Thelma Bean Problems Active Problems Problem Classification Problem Date Documented Date Episodic/Chronic Acute and unspecified renal failure (1 source) Acute kidney failure, unspecified; Translations: [Acute kidney failure, unspecified] Onset: 05-31-2025 Episodic Acute cerebrovascular disease (12 sources) Ischemic stroke; Translations: [Cerebral infarction, unspecified] Onset: 10-20-2017 09-10-2021 Chronic Acute myocardial infarction (4 sources) Subsequent ST elevation (STEMI) myocardial infarction of inferior wall; Translations: [Subsequent ST elevation (STEMI) myocardial infarction of inferior wall] Onset: 01-08-2011 01-08-2011 Chronic Asthma (9 sources) Asthma; Translations: [Unspecified asthma, uncomplicated] 08-14-2023 Chronic Chronic obstructive pulmonary disease and bronchiectasis (1 source) Chronic obstructive pulmonary disease, unspecified; Translations: [Chronic obstructive pulmonary disease, unspecified] Onset: 07-05-2024 Chronic Coronary atherosclerosis and other heart disease (20 sources) Old myocardial infarction; Translations: [Coronary arteriosclerosis] Onset: 01-08-2011 11-27-2016 Chronic Diabetes mellitus without complication (6 sources) Hyperglycemia; Translations: [Hyperglycemia, unspecified] 12-02-2023 Episodic Disorders of lipid metabolism (20 sources) Hyperlipidemia; Translations: [Hyperlipidemia, unspecified] Onset: 04-21-2012 04-21-2012 Chronic Esophageal disorders (12 sources) Gastroesophageal reflux disease; Translations: [Gastro-esophageal reflux disease without esophagitis] 09-10-2021 Chronic Essential hypertension (20 sources) Hypertensive disorder; Translations: [Essential hypertension] Onset: 01-18-2014 01-18-2014 Chronic Headache; including migraine (20 sources) Tension-type headache; Translations: [Tension-type headache, unspecified, not intractable] Chronic Immunizations and screening for infectious disease (20 sources) Patient encounter status; Translations: [Encounter for screening for COVID-19] 09-10-2021 Episodic Malaise and fatigue (11 sources) Fatigue; Translations: [Other fatigue] 06-04-2022 Episodic Occlusion or stenosis of precerebral arteries (16 sources) Left carotid artery stenosis; Translations: [Occlusion and stenosis of left carotid artery] 06-21-2019 Chronic Comment on above: Left carotid endarte rectomy with bovine patch angioplasty 05/18/2018 Other circulatory disease (10 sources) History of cerebrovascular accident due to ischemia; Translations: [Personal history of transient ischemic attack (TIA), and cerebral infarction without residual deficits] 12-02-2022 Episodic Comment on above: 2018 Other circulatory disease (6 sources) Personal history of transient ischemic attack (TIA), and cerebral infarction without residual deficits; Translations: [Personal history of transient ischemic attack (TIA), and cerebral infarction without residual deficits] Episodic Other connective tissue disease (9 sources) Fibromyalgia; Translations: [Fibromyalgia] 12-02-2022 Episodic Other connective tissue disease (6 sources) Fibromyalgia; Translations: [Myalgia and myositis, unspecified] Onset: 05-30-2025 12-02-2022 Episodic Other connective tissue disease (6 sources) Diastasis recti; Translations: [Separation of muscle (nontraumatic), other site] 06-27-2023 Episodic Other connective tissue disease (1 source) Separation of muscle (nontraumatic), other site; Translations: [Diastasis of muscle] 06-27-2023 Episodic Other lower respiratory disease (11 sources) Dyspnea on exertion; Translations: [Other forms of dyspnea] 06-04-2022 Episodic Other lower respiratory disease (4 sources) Other forms of dyspnea; Translations: [Other respiratory abnormalities] Episodic Other lower respiratory disease (2 sources) Hypoxia; Translations: [Hypoxemia] 02-23-2024 Episodic Other nervous system disorders (1 source) Claudication; [...] (BMI) 32.0-32.9, adult] Onset: 07-20-2013 05-21-2016 Chronic Other nutritional; endocrine; and metabolic disorders (8 sources) Body mass index 30+ - obesity; Translations: [Body mass index (BMI) 30.0-30.9, adult] 01-14-2023 Chronic Other nutritional; endocrine; and metabolic disorders (5 sources) Body mass index (BMI) 30.0-30.9, adult; Translations: [Body Mass Index 30.0-30.9, adult] 01-14-2023 Chronic Other nutritional; endocrine; and metabolic disorders (2 sources) Obesity; Translations: [Obesity, unspecified] 02-17-2024 Chronic Other upper respiratory infections (20 sources) Acute upper respiratory infection; Translations: [Acute upper respiratory infection, unspecified] 06-21-2019 Episodic Peripheral and visceral atherosclerosis (20 sources) Atherosclerosis of aorta; Translations: [Arteriosclerotic vascular disease] Onset: 01-08-2011 01-08-2011 Chronic Comment on above: 1998 right leg; [employer] and turbo hawk atherectomy to RLE SFA and popliteal artery 06/07/13 Residual codes; unclassified (12 sources) Sleep apnea; Translations: [Sleep apnea, unspecified] 03-22-2021 Chronic Residual codes; unclassified (2 sources) Sleep apnea, unspecified; Translations: [Unspecified sleep apnea] 01-14-2023 Chronic Residual codes; unclassified (7 sources) Obstructive sleep apnea syndrome; Translations: [Obstructive sleep apnea (adult) (pediatric)] 04-07-2023 Chronic Residual codes; unclassified (5 sources) Obstructive sleep apnea (adult) (pediatric); Translations: [Obstructive sleep apnea (adult)(pediatric)] 08-14-2023 Chronic Residual codes; unclassified (1 source) Chills (without fever); Translations: [Chills (without fever)] Onset: 05-13-2025 Episodic Thyroid disorders (12 sources) Disorder of thyroid gland; Translations: [Disorder of thyroid, unspecified] 09-10-2021 Episodic Transient cerebral ischemia (12 sources) Transient cerebral ischemia; Translations: [Transient cerebral ischemic attack, unspecified] Onset: 04-07-2018 09-10-2021 Chronic Comment on above: March 2018 Unclassified (1 source) Long-term drug therapy; Translations: [Other detention (current) drug therapy] Onset: 01-08-2011 01-08-2011 Past or Other Problems Problem Classification Problem Date Documented Da te Episodic/Chronic Blindness and vision defects (4 sources) Transient visual loss; Translations: [Transient visual loss, unspecified eye] Onset: 01-08-2011 01-08-2011 Episodic Other aftercare (3 sources) Other intermodal customer service (current) drug therapy; Translations: [Other intermodal customer service (current) drug therapy] Onset: 01-08-2011 01-08-2011 Episodic Results Test Name Value Interpretation Reference Range Facility CBC W/Diff, Automatedon 05-20 Absolute Lymph 1.88 X10 3/uL Normal 0.83-4.51 [facility] Comment on above: Performed By: #### L 500.4050, L501.9520, L100.0100, L101.9900, L503.0106 ####[facility] [address] [place], [address] Absolute Neut 3.3 X10 3/uL Normal 2.0-7.7 [facility] Comment on above: Performed By: #### L 500.4050, L501.9520, L100.0100, L101.9900, L503.0106 ####[facility] [address] [place], [address] Basophils/100 WBC (Bld) 0.5 % Normal 0-1 [facility] Comment on above: Performed By: #### L 500.4050, L501.9520, L100.0100, L101.9900, L503.0106 ####[facility] [address] [place], [address] Eosinophils/100 WBC (Bld) 3.9 % Normal 0-5 [facility] Comment on above: Performed By: #### L 500.4050, L501.9520, L100.0100, L101.9900, L503.0106 ####[facility] [address] [place], [address] Erythrocyte distribution width (RBC) [Ratio] 12.5 % Normal 11.6-14.6 [facility] Comment on above: Performed By: #### L 500.4050, L501.9520, L100.0100, L101.9900, L503.0106 ####[facility] [address] [place], [address] Hematocrit (Bld) [Volume fraction] 34.4 % Low 40-54 [facility] Comment on above: Performed By: #### L 500.4050, L501.9520, L100.0100, L101.9900, L503.0106 ####[facility] [address] [place], [address] Hemoglobin (Bld) [Mass/Vol] 11.6 g/dL Low 13.0-16.5 [facility] Comment on above: Performed By: #### L 500.4050, L501.9520, L100.0100, L101.9900, L503.0106 ####[facility] [address] [place], [address] IG% 0.300 Normal 0.0-0.9 [facility] Comment on above: Result Comment: IG% - Immature Granulocytes (promyelocytes, myelocytes and metamyelocytes) > 1% indicates that a LEFT SHIFT is Present. Performed By: #### L 500.4050, L501.9520, L100.0100, L101.9900, L503.0106 ####[facility] [address] [place], [address] Lymphocytes/100 WBC (Bld) 31.5 % Normal 19-41 [facility] Comment on above: Performed By: #### L 500.4050, L501.9520, L100.0100, L101.9900, L503.0106 ####[facility] [address] [place], [address] MCH (RBC) [Entitic mass] 32.0 pg Normal 27.0-32.0 [facility] Comment on above: Performed By: #### L 500.4050, L501.9520, L100.0100, L101.9900, L503.0106 ####[facility] [address] [place], [address] MCHC (RBC) [Mass/Vol] 33.7 g/dL Normal 32-36 [facility] Comment on above: Performed By: #### L 500.4050, L501.9520, L100.0100, L101.9900, L503.0106 ####[facility] [address] [place], [address] MCV (RBC) [Entitic vol] 94.8 fL High 80-94 [facility] Comment on above: Performed By: #### L 500.4050, L501.9520, L100.0100, L101.9900, L503.0106 ####[facility] [address] [place], [address] Monocytes/100 WBC (Bld) 8.0 % Normal 0-10 [facility] Comment on above: Performed By: #### L 500.4050, L501.9520, L100.0100, L101.9900, L503.0106 ####[facility] [address] [place], [address] Neutrophils/100 WBC (Bld) 55.8 % Normal 47-70 [facility] Comment on above: Performed By: #### L 500.4050, L501.9520, L100.0100, L101.9900, L503.0106 ####[facility] [address] [place], [address] Nucleated RBC (Bld) [#/Vol] 0 10*3/uL Normal 0-5 [facility] Comment on above: Performed By: #### L 500.4050, L501.9520, L100.0100, L101.9900, L503.0106 ####[facility] [address] [place], [address] Platelet mean volume (Bld) [Entitic vol] 9.9 fL Normal 6.2-12.0 [facility] Comment on above: Performed By: #### L 500.4050, L501.9520, L100.0100, L101.9900, L503.0106 ####[facility] [address] [place], [address] Platelets (Bld) [#/Vol] 193 10*3/uL Normal 150-450 [facility] Comment on above: Performed By: #### L 500.4050, L501.9520, L100.0100, L101.9900, L503.0106 ####[facility] [address] [place], [address] RBC (Bld) [#/Vol] 3.63 10*6/uL Low 4.6-6.2 [facility] Comment on above: Performed By: #### L 500.4050, L501.9520, L100.0100, L101.9900, L503.0106 ####[facility] [address] [place], [address] RDW SD 43.7 fl Normal 35.1-43.9 [facility] Comment on above: Performed By: #### L 500.4050, L501.9520, L100.0100, L101.9900, L503.0106 ####[facility] [address] [place], [address] WBC (Bld) [#/Vol] 6.0 10*3/uL Normal 4.4-11.[address] [facility] Comment on above: Performed By: #### L 500.4050, L501.9520, L100.0100, L101.9900, L503.0106 ####[facility] [address] [place], [address] Comprehensive Metabolic [facility] 05-30-2025 Albumin [Mass/Vol] 4.3 g/dL Normal 3.4-4.[address] [facility] Comment on above: Performed By: #### L 500.4050, L501.9520, L100.0100, L101.9900, L503.0106 ####[facility] [address] [place], [address] Albumin/Globulin [Mass ratio] 1.8 {ratio} Normal 0.9-2.4 [facility] Comment on above: Performed By: #### L 500.4050, L501.9520, L100.0100, L101.9900, L503.0106 ####[facility] [address] [place], [address] ALK PHOS 64 U/L Normal 40-129 [facility] Comment on above: Performed By: #### L 500.4050, L501.9520, L100.0100, L101.9900, L503.0106 ####[facility] [address] [place], [address] ALT [Catalytic activity/Vol] 26 U/L Normal <=46 [facility] Comment on above: Performed By: #### L 500.4050, L501.9520, L100.0100, L101.9900, L503.0106 ####[facility] [address] [place], [address] AST [Catalytic activity/Vol] 21 U/L Normal <=37 [facility] Comment on above: Performed By: #### L 500.4050, L501.9520, L100.0100, L101.9900, L503.0106 ####[facility] [address] [place], [address] Bilirubin [Mass/Vol] 0.36 mg/dL Normal 0.00-1.30 [facility] Comment on above: Performed By: #### L 500.4050, L501.9520, L100.0100, L101.9900, L503.0106 ####[facility] [address] [place], [address] BUN/CRE 13.8 RATIO Normal 10-20 [facility] Comment on above: Performed By: #### L 500.4050, L501.9520, L100.0100, L101.9900, L503.0106 ####[facility] [facility] [address] [place], [address] Calcium [Mass/Vol] 9.1 mg/dL Normal 7.6-11.[address] [facility] Comment on above: Performed By: #### L 500.4050, L501.9520, L100.0100, L101.9900, L503.0106 ####[facility] [address] [place], [address] Chloride [Moles/Vol] 103 mmol/L Normal 98-108 [facility] Comment on above: Performed By: #### L 500.4050, L501.9520, L100.0100, L101.9900, L503.0106 ####[facility] [address] [place], [address] CO2 [Moles/Vol] 23.4 mmol/L Normal 21.0-32.0 [facility] Comment on above: Performed By: #### L 500.4050, L501.9520, L100.0100, L101.9900, L503.0106 ####[facility] [address] [place], [address] Creatinine [Mass/Vol] 1.81 mg/dL High 0.70-1.20 [facility] Comment on above: Performed By: #### L 500.4050, L501.9520, L100.0100, L101.9900, L503.0106 ####[facility] [address] [place], [address] GAP 12 Normal 5-15 [facility] Comment on above: Performed By: #### L 500.4050, L501.9520, L100.0100, L101.9900, L503.0106 ####[facility] [address] [place], [address] GFR/1.73 sq M.predicted among non-blacks MDRD (S/P/Bld) [Vol rate/Area] 38 mL/min/{1.73_m2} Low >60 [facility] Comment on above: Result Comment: mL/m in/1.73m2 CKD-EPI Creatinine Equation (2020) Performed By: #### L 500.4050, L501.9520, L100.0100, L101.9900, L503.0106 ####[facility] [address] [place], [address] Globulin (S) [Mass/Vol] 2.4 g/dL Normal 2.2-4.2 [facility] Comment on above: Performed By: #### L 500.4050, L501.9520, L100.0100, L101.9900, L503.0106 ####[facility] [address] [place], [address] Glucose [Mass/Vol] 146 mg/dL High 70-[address] [facility] Comment on above: Performed By: #### L 500.4050, L501.9520, L100.0100, L101.9900, L503.0106 ####[facility] [address] [place], [address] Potassium [Moles/Vol] 4.1 mmol/L Normal 3.3-5.1 [facility] Comment on above: Performed By: #### L 500.4050, L501.9520, L100.0100, L101.9900, L503.0106 ####[facility] [address] [place], [address] Sodium [Moles/Vol] 139 mmol/L Normal 133-[address] [facility] Comment on above: Performed By: #### L 500.4050, L501.9520, L100.0100, L101.9900, L503.0106 ####[facility] [address] [place], [address] T PROT 6.7 g/dL Normal 5.9-8.4 [facility] Comment on above: Performed By: #### L 500.4050, L501.9520, L100.0100, L101.9900, L503.0106 ####[facility] [address] [place], [address] Urea nitrogen [Mass/Vol] 25 mg/dL High 4-19 [facility] Comment on above: Performed By: #### L 500.4050, L501.9520, L100.0100, L101.9900, L503.0106 ####[facility] [address] [place], [address] Erythrocyte Sed Rateon 05-30 SED RATE 9 mm/hr Normal 0-20 [facility] Comment on above: Performed By: #### L 500.4050, L501.9520, L100.0100, L101.9900, L503.0106 ####[facility] [address] [place], [address] Thyroid Stim Hormone (TSH)on 05-30-2025 TSH 1.720 uIU/mL Normal 0.300-4.200 [facility] Comment on above: Performed By: #### L 500.4050, L501.9520, L100.0100, L101.9900, L503.0106 ####[facility] [address] [place], [address] Vitamin B12on 05-30-2025 Cobalamin (Vitamin B12) [Mass/Vol] 619 pg/mL Normal 180-914 [facility] Comment on above: Performed By: #### L 500.4050, L501.9520, L100.0100, L101.9900, L503.0106 ####[facility] [address] [place], [address] Influenza virus A and B and SARS-CoV-2 (COVID-19) and Respiratory syncytial virus RNAOrdered By: Teo Lamb on 05-09-2025 SARS-CoV-2 (COVID-19) RNA VALDO+probe Ql (Unsp spec) [facility] M100.678on 05-09-2025 M100.678 Pending SARS-CoV-2 (COVID 19) Negative INFLUENZA A Negative INFLUENZA B Negative RSV PCR Negative Normal [facility] Comment on above: Performed By: #### M 100.678 #### [facility] [address] [facility] [place], [place], [address] Absolute lymphocyte countOrd ered By: Teo Lamb on 03-30-2025 Lymphocytes Auto (Unsp spec) [#/Vol] 1.99 10*3/uL 0.83-4.51 [facility] Absolute neutrophil countOrd ered By: Teo Lamb on 03-30-2025 Neutrophils (Bld) [#/Vol] 3.4 10*3/uL 2.0-7.7 [facility] Anion gap in Serum or Plasma Ordered By: Teo Lamb on 03-30-2025 Anion gap [Moles/Vol] 11 mmol/L 5-15 [facility] Automated lymphocyte count a s percentage of total leukocytesOrdered By: Teo Lamb on 03-30-2025 Lymphocytes/100 WBC Auto (Unsp spec) 32.1 % - [facility] BUN/creatinine ratioOrdered By: Teo Lamb on 03-30-2025 Urea nitrogen/Creatinine [Mass ratio] 16.2 mg/mg 10-20 [facility] Basophil percentageOrdered B y: Teo Lamb on 03-30-2025 Basophils/100 WBC (Bld) 0.5 % 0-1 [facility] Bilirubin, totalOrdered By: Teo Lamb on 03-30-2025 Bilirubin [Mass/Vol] 0.22 mg/dL 0.00-1.30 [facility] CBC W/Diff, Automatedon 03-20 Absolute Lymph 1.99 X10 3/uL Normal 0.83-4.51 [facility] Comment on above: Performed By: #### L 506.1001, L501.9520, L500.4050, L100.0100 #### [facility] [address] [place], [address] Absolute Neut 3.4 X10 3/uL Normal 2.0-7.7 [facility] Comment on above: Performed By: #### L 506.1001, L501.9520, L500.4050, L100.0100 #### [facility] [address] [place], [address] Basophils/100 WBC (Bld) 0.5 % Normal 0-1 [facility] Comment on above: Performed By: #### L 506.1001, L501.9520, L500.4050, L100.0100 #### [facility] [address] [place], [address] Eosinophils/100 WBC (Bld) 4.5 % Normal 0-5 [facility] Comment on above: Performed By: #### L 506.1001, L501.9520, L500.4050, L100.0100 #### [facility] [address] [place], [address] Erythrocyte distribution width (RBC) [Ratio] 12.6 % Normal 11.6-14.6 [facility] Comment on above: Performed By: #### L 506.1001, L501.9520, L500.4050, L100.0100 #### [facility] [address] [place], [address] Hematocrit (Bld) [Volume fraction] 35.9 % Low 40-54 [facility] Comment on above: Performed By: #### L 506.1001, L501.9520, L500.4050, L100.0100 #### [facility] [address] [place], [address] Hemoglobin (Bld) [Mass/Vol] 12.2 g/dL Low 13.0-16.5 [facility] Comment on above: Performed By: #### L 506.1001, L501.9520, L500.4050, L100.0100 #### [facility] [address] [place], [address] IG% 0.200 Normal 0.0-0.9 [facility] Comment on above: Result Comment: IG% - Immature Granulocytes (promyelocytes, myelocytes and metamyelocytes) > 1% indicates that a LEFT SHIFT is Present. Performed By: #### L 506.1001, L501.9520, L500.4050, L100.0100 #### [facility] [address] [place], [address] Lymphocytes/100 WBC (Bld) 32.1 % Normal 19-41 [facility] Comment on above: Performed By: #### L 506.1001, L501.9520, L500.4050, L100.0100 #### [facility] [address] [place], [address] MCH (RBC) [Entitic mass] 31.8 pg Normal 27.0-32.0 [facility] Comment on above: Performed By: #### L 506.1001, L501.9520, L500.4050, L100.0100 #### [facility] [address] [place], [address] MCHC (RBC) [Mass/Vol] 34.0 g/dL Normal 32-36 [facility] Comment on above: Performed By: #### L 506.1001, L501.9520, L500.4050, L100.0100 #### [facility] [address] [place], [address] MCV (RBC) [Entitic vol] 93.5 fL Normal 80-94 [facility] Comment on above: Performed By: #### L 506.1001, L501.9520, L500.4050, L100.0100 #### [facility] [address] [place], [address] Monocytes/100 WBC (Bld) 8.2 % Normal 0-10 [facility] Comment on above: Performed By: #### L 506.1001, L501.9520, L500.4050, L100.0100 #### [facility] [address] [place], [address] Neutrophils/100 WBC (Bld) 54.5 % Normal 47-70 [facility] Comment on above: Performed By: #### L 506.1001, L501.9520, L500.4050, L100.0100 #### [facility] [address] [place], [address] Nucleated RBC (Bld) [#/Vol] 0 10*3/uL Normal 0-5 [facility] Comment on above: Performed By: #### L 506.1001, L501.9520, L500.4050, L100.0100 #### [facility] [address] [place], [address] Platelet mean volume (Bld) [Entitic vol] 9.4 fL Normal 6.2-12.0 [facility] Comment on above: Performed By: #### L 506.1001, L501.9520, L500.4050, L100.0100 #### [facility] [address] [place], [address] Platelets (Bld) [#/Vol] 183 10*3/uL Normal 150-450 [facility] Comment on above: Performed By: #### L 506.1001, L501.9520, L500.4050, L100.0100 #### [facility] [address], [address] RBC (Bld) [#/Vol] 3.84 10*6/uL Low 4.6-6.2 [facility] Comment on above: Performed By: #### L 506.1001, L501.9520, L500.4050, L100.0100 #### [facility] [address] [place], [address] RDW SD 43.3 fl Normal 35.1-43.9 [facility] Comment on above: Performed By: #### L 506.1001, L501.9520, L500.4050, L100.0100 #### [facility] [address] [place], [address] WBC (Bld) [#/Vol] 6.2 10*3/uL Normal 4.4-11.[address] [facility] Comment on above: Performed By: #### L 506.1001, L501.9520, L500.4050, L100.0100 #### [facility] [address] [place], [address] Carbon dioxide, total [Moles /volume] in Central venous bloodOrdered By: Teo Lamb on 03-30-2025 CO2 [Moles/Vol] 24.0 mmol/L 21.0-32.0 [facility] Chloride assayOrdered By: Baudilio Lamb on 03-30-2025 Chloride [Moles/Vol] 104 mmol/L 98-108 [facility] Comprehensive Metabolic Prof ilon 03-30-2025 Albumin [Mass/Vol] 4.5 g/dL Normal 3.4-4.[address] [facility] Comment on above: Performed By: #### L 506.1001, L501.9520, L500.4050, L100.0100 #### [facility] [address] [place], [address] Albumin/Globulin [Mass ratio] 1.7 {ratio} Normal 0.9-2.4 [facility] Comment on above: Performed By: #### L 506.1001, L501.9520, L500.4050, L100.0100 #### [facility] [address] [place], [address] ALK PHOS 75 U/L Normal 40-129 [facility] Comment on above: Performed By: #### L 506.1001, L501.9520, L500.4050, L100.0100 #### [facility] [address] [place], [address] ALT [Catalytic activity/Vol] 30 U/L Normal <=46 [facility] Comment on above: Performed By: #### L 506.1001, L501.9520, L500.4050, L100.0100 #### [facility] [address] [place], [address] AST [Catalytic activity/Vol] 25 U/L Normal <=37 [facility] Comment on above: Performed By: #### L 506.1001, L501.9520, L500.4050, L100.0100 #### [facility] [address] [place], [address] Bilirubin [Mass/Vol] 0.22 mg/dL Normal 0.00-1.30 [facility] Comment on above: Performed By: #### L 506.1001, L501.9520, L500.4050, L100.0100 #### [facility] [address] [place], [address] BUN/CRE 16.2 RATIO Normal 10-20 [facility] Comment on above: Performed By: #### L 506.1001, L501.9520, L500.4050, L100.0100 #### [facility] [address] [place], [address] Calcium [Mass/Vol] 9.0 mg/dL Normal 7.6-11.[address] [facility] Comment on above: Performed By: #### L 506.1001, L501.9520, L500.4050, L100.0100 #### [facility] [address] [place], [address] Chloride [Moles/Vol] 104 mmol/L Normal 98-108 [facility] Comment on above: Performed By: #### L 506.1001, L501.9520, L500.4050, L100.0100 #### [facility] [address] [place], [address] CO2 [Moles/Vol] 24.0 mmol/L Normal 21.0-32.0 [facility] Comment on above: Performed By: #### L 506.1001, L501.9520, L500.4050, L100.0100 #### [facility] [address] [place], [address] Creatinine [Mass/Vol] 1.34 mg/dL High 0.70-1.20 [facility] Comment on above: Performed By: #### L 506.1001, L501.9520, L500.4050, L100.0100 #### [facility] [address] [place], [address] GAP 11 Normal 5-15 [facility] Comment on above: Performed By: #### L 506.1001, L501.9520, L500.4050, L100.0100 #### [facility] [address] [place], [address] GFR/1.73 sq M.predicted among non-blacks MDRD (S/P/Bld) [Vol rate/Area] 54 mL/min/{1.73_m2} Low >60 [facility] Comment on above: Result Comment: mL/m in/1.73m2 CKD-EPI Creatinine Equation (2020) Performed By: #### L 506.1001, L501.9520, L500.4050, L100.0100 #### [facility] [address] [place], [address] Globulin (S) [Mass/Vol] 2.6 g/dL Normal 2.2-4.2 [facility] Comment on above: Performed By: #### L 506.1001, L501.9520, L500.4050, L100.0100 #### [facility] [address] [place], [address] Glucose [Mass/Vol] 112 mg/dL High 70-[address] [facility] Comment on above: Performed By: #### L 506.1001, L501.9520, L500.4050, L100.0100 #### [facility] [address] [place], [address] Potassium [Moles/Vol] 4.5 mmol/L Normal 3.3-5.1 [facility] Comment on above: Performed By: #### L 506.1001, L501.9520, L500.4050, L100.0100 #### [facility] [address] [place], [address] Sodium [Moles/Vol] 139 mmol/L Normal 133-[address] [facility] Comment on above: Performed By: #### L 506.1001, L501.9520, L500.4050, L100.0100 #### [facility] [address] [place], [address] T PROT 7.1 g/dL Normal 5.9-8.4 [facility] Comment on above: Performed By: #### L 506.1001, L501.9520, L500.4050, L100.0100 #### [facility] [address] [place], [address] Urea nitrogen [Mass/Vol] 22 mg/dL High 4-19 [facility] Comment on above: Performed By: #### L 506.1001, L501.9520, L500.4050, L100.0100 #### [facility] [address] [place], [address] Eosinophil percentageOrdered By: [facility] Adonis on 03-30-2025 Eosinophils/100 WBC (Bld) 4.5 % 0-5 [facility] Erythrocyte distribution wid th ratioOrdered By: [facility]2025 Erythrocyte distribution width (RBC) [Ratio] 12.6 % 11.6-14.6 [facility] Erythrocyte distribution wid th standard deviationOrdered By: [facility] on 03-30-2025 Erythrocyte distribution width (RBC) [Ratio] 43.3 fl 35.1-43.9 [facility] Glomerular filtration rate ( GFR) estimation/1.73 sq m using serum, plasma, or whole bOrdered By: Teo Lamb on 03-30-2025 GFR/1.73 sq M.predicted among non-blacks MDRD (S/P/Bld) [Vol rate/Area] 54 mL/min/{1.73_m2} Low >60 [facility] Comment on above: mL/min/1.73m2 CKD-EP I Creatinine Equation (2020) Hematocrit Auto (Bld) [Volum e fraction]Ordered By: Teo Lamb on 03-30-2025 Hematocrit (Bld) [Volume fraction] 35.9 % Low 40-54 [facility] Hemoglobin measurementOrdere d By: Teo Lamb 03-30-2025 Hemoglobin (Bld) [Mass/Vol] 12.2 g/dL Low 13.0-16.5 [facility] Immature granulocytes/100 WB C Auto (Bld)Ordered By: Teo Lamb 03-30-2025 Immature granulocytes/100 WBC (Bld) 0.200 % 0.0-0.9 [facility] Comment on above: IG% - Immature Granu locytes (promyelocytes, myelocytes and metamyelocytes) > 1% indicates that a LEFT SHIFT is Present. Laboratory - Chemistry and C hemistry - challengeOrdered By: Teo Lamb on 03-30-2025 AST [Catalytic activity/Vol] 25 U/L <38 [facility] MCV (mean corpuscular volume ) determinationOrdered By: Teo Lamb on 03-30-2025 MCV (RBC) [Entitic vol] 93.5 fL 80-94 [facility] Mean corpuscular hemoglobin (MCH) determinationOrdered By: Teo Lamb on 03-30-2025 MCH (RBC) [Entitic mass] 31.8 pg 27.0-32.0 [facility] Mean corpuscular hemoglobin concentration (MCHC) determinationOrdered By: Teo Lamb 03-30-2025 MCHC (RBC) [Mass/Vol] 34.0 g/dL 32-36 [facility] Mean platelet volume determi nationOrdered By: Teo Lamb on 03-30-2025 Platelet mean volume (Bld) [Entitic vol] 9.4 fL 6.2-12.0 [facility] Monocyte percentageOrdered B y: Teo Lamb on 03-30-2025 Monocytes/100 WBC (Bld) 8.2 % 0-10 [facility] Neutrophil percentageOrdered By: Teo Lamb on 03-30-2025 Neutrophils/100 WBC (Bld) 54.5 % 47-70 [facility] Nucleated red blood cell per centageOrdered By: Teo Lamb on 03-30-2025 Nucleated RBC/100 WBC (Bld) [Ratio] 0 % 0-5 [facility] Platelet countOrdered By: Baudilio Lamb on 03-30-2025 Platelets (Bld) [#/Vol] 183 10*3/uL 150-450 [facility] Potassium measurement (mass/ volume)Ordered By: Teo Lamb on 03-30-2025 Potassium (Unsp spec) [Mass/Vol] 4.5 mmol/L 3.3-5.1 [facility] RBC Auto (Bld) [#/Vol]Ordere d By: Teo Lamb on 03-30-2025 RBC (Bld) [#/Vol] 3.84 10*6/uL Low 4.6-6.2 [facility] Serum creatinine measurement (mass/volume)Ordered By: Teo Lamb on 03-30-2025 Creatinine [Mass/Vol] 1.34 mg/dL High 0.70-1.20 [facility] Serum globulin measurementOr dered By: Teo Lamb on 03-30-2025 Globulin (S) [Mass/Vol] 2.6 g/dL 2.2-4.2 [facility] Serum glucose measurement (m ass/volume)Ordered By: Teo Lamb on 03-30-2025 Glucose [Mass/Vol] 112 mg/dL High 70-[address] [facility] Serum or plasma alanine levi otransferase (ALT) measurementOrdered By: Teo Lamb 03-30-2025 ALT [Catalytic activity/Vol] 30 U/L <47 [facility] Serum or plasma albumin aneudy urement (mass/volume)Ordered By: Teo Lamb 03-30-2025 Albumin [Mass/Vol] 4.5 g/dL 3.4-4.[address] [facility] Serum or plasma albumin/glob ulin mass ratioOrdered By: Teo Lamb 03-30-2025 Albumin/Globulin [Mass ratio] 1.7 {ratio} 0.9-2.4 [facility] Serum or plasma alkaline jasvir sphatase measurementOrdered By: Teo Lamb 03-30-2025 ALP [Catalytic activity/Vol] 75 U/L 40-129 [facility] Serum or plasma calcium aneudy urement (mass/volume)Ordered By: Teo Lamb 03-30-2025 Calcium [Mass/Vol] 9.0 mg/dL 7.6-11.[address] [facility] Serum or plasma urea nitroge n measurement (mass/volume)Ordered By: Teo Lamb 03-30-2025 Urea nitrogen [Mass/Vol] 22 mg/dL High 4-19 [facility] Sodium levelOrdered By: Teo Lamb 03-30-2025 Sodium [Moles/Vol] 139 mmol/L 133-[address] [facility] TSH DL <= 0.005 mIU/L QnOrde red By: Teo Lamb 03-30-2025 TSH Qn 3.150 uIU/mL 0.300-4.200 [facility] Thyroid Stim Hormone (TSH)on 03-30-2025 TSH 3.150 uIU/mL Normal 0.300-4.200 [facility] Comment on above: Performed By: #### L 506.1001, L501.9520, L500.4050, L100.0100 ####[facility] [address] [place], [address] Total proteinOrdered By: Teo Lamb on 03-30-2025 Protein [Mass/Vol] 7.1 g/dL 5.9-8.[address] [facility] Vitamin D,25 Hydroxyon 03-30 Vitamin D 25-OH 32.6 ng/mL Normal 30-100 [facility] Comment on above: Result Comment: Brianna min D Status Deficiency: <20 ng/mL (50nmol/L) Insufficiency: 20-30 ng/mL (50-75 nmol/L) Sufficiency: 30-100 ng/mL (75-250 nmol/L) Toxicity: >100 ng/mL (>250 nmol/L) Performed By: #### L 506.1001, L501.9520, L500.4050, L100.0100 ####[facility] [address] [place], [address] White blood cell (WBC) count Ordered By: Teo Lamb on 03-30-2025 WBC (Bld) [#/Vol] 6.2 10*3/uL 4.4-11.[address] [facility] Cardiology Visit Reporton Cardiology Visit Report [facility] [address] [place], [place] [address] OFFICE VISIT Date of Service: 01/27/25 MR#: [id number] Acct: [id number] Name: ERROL RIVERA Rep #: [id number] : 1945 Provider: JESSICA alfaro Age/Sex: 79/M Location: [facility] [place] Status: Signed HPI HPI History of Present Illness Details: ERROL RIVERA, is a 79 M who presents to the office today for a cardiovascular followup visit. He has a history of coronary artery disease with known occluded RCA with left to right collaterals. He also has peripheral vascular disease, hypertension and hyperlipidemia. He also has a history of migraine for which she has been taking the verapamil and he says that this has improved his symptomatology quite a bit. He still has mild facial numbness following his TIA and his left carotid endarterectomy in 2018. From a cardiac standpoint, the patient is doing well. He denies any palpitations, chest pain, pressure or heaviness. He denies SOB, Orthopnea, and PND. He does not have bleeding issues; no blood in urine, stool, or nosebleeds. He denies any decrease in energy level, myalgias, or claudication. He does not have edema, or sudden weight gain. He does have occasional lightheadedness with quick postional changes. He denies dizziness, syncopal or near syncopal episodes, and headaches. Intake Vital Signs 01/27/24 10:02 08/17/24 08:26 01/27/25 10:06 01/27/25 10:11 Height 5 ft 10 in 5 ft 10 in 5 ft 10 in 5 ft 10 in Weight: 208 lb BMI 29.8 BP 125/74 H Blood Pressure Location Lt brachial Position Sitting Respiration 18 Pulse 96 Pulse Source Monitor Pulse Oximetry (%) 95 Intake Visit Reasons: 1 Y FU [employer] Required: No Is patient in pain?: No Allergies No Known Allergies Allergy (Verified 01/27/25 10:11) Medications ???Medication ???Instructions ???Recorded ???Confirmed ???Type glucosamine-chondro [id number] 1 tab PO BID SUPPLEMENT 10/10/17 01/27/25 History 750 mg-100 mg-125 mg-1.65 mg tablet (Glucosamine Chondroit Complx Advan) omeprazole 20 mg capsule,delayed 20 mg PO BID GERD 04/08/18 5 History release albuterol sulfate 90 mcg/actuation 1 - 2 puff inhalation Q6H PRN MO N 06/20/18 01/27/25 History aerosol inhaler Wheezing aspirin 81 mg tablet,delayed 81 mg PO DAILY 12/08/18 01/27/25 H istory release (Adult Low Dose Aspirin) loratadine 10 mg tablet (Claritin) 10 mg PO QDAY PRN ALLERGIES 11/2001/27/25 History cilostazol 100 mg tablet 100 mg PO .QD PAD 09/01/20 5 History levothyroxine 25 mcg tablet 25 mcg PO DAILY 09/01/20 01/27/25 History [id number] 300 mcg-K 60 1 tab PO DAILY 04/18/21 01/27/25 H istory mcg-lycop 600 mcg-lutein 300 mcg tablet (Centrum Silver Men) tamsulosin 0.4 mg capsule 0.4 mg PO QHS 09/11/21 01/27/25 Hi story omega-3 fatty acids 1,000 mg 1,000 mg PO BID SUPPLEMENT 3 01/27/25 History capsule (Super [place]-3) enalapril maleate 20 mg tablet 20 mg PO BID for blood pressure 01/27/25 Rx #180 TABLETS atorvastatin 80 mg tablet 80 mg PO QHS CHOLESTEROL #90 tabs 04/19/24 01/27/25 Rx hydrochlorothiazide 25 mg tablet 25 mg PO DAILY #90 TABLETS 4 01/27/25 Rx isosorbide mononitrate 30 mg 30 mg PO QHS for blood pressure 01/27/25 Rx tablet,extended release 24 hr #90 TABLETS gabapentin 300 mg capsule 300 mg .Route .COMPLEX PAIN #270 1 01/27/25 Rx caps verapamil 80 mg tablet See Rx Instructions .Route 4 01/27/25 Rx .COMPLEX cluster headaches #225 tabs Ejection fraction %: 60 Have you fallen in the past year?: No Nurse's Note: patient refuses to go over medications, he cant pronounce them or oly not wish to carry a list, [facility] Medical History History of ischemic stroke Encounter for screening for COVID-19 Peripheral vascular disease of extremity with claudication Wears glasses Loose, teeth BiPAP (biphasic positive airway pressure) dependence History of atrial fibrillation Sleep apnea Acid reflux Thyroid disease Cluster headache Claudication Obesity Peripheral vascular occlusive disease Hyperlipidemia Left carotid artery stenosis Essential (primary) hypertension TIA involving left internal carotid artery Severe headache TIA (transient ischemic attack) (04/07/18) History of inferior wall myocardial infarction Atherosclerotic heart disease of [place] coronary artery without angina pectoris Asthma Hay fever Arthritis Surgical History History of left-sided carotid endarterectomy (05/07/18) History of herniorrhaphy History of left heart catheterization (05/2002) History of emma (more content not included)... Normal [facility] CBC W/Diff, Automatedon 12-2 Absolute Lymph 1.90 X10 3/uL Normal 0.83-4.51 [facility] Comment on above: Performed By: #### L 501.9520, L100.0100, L500.4050, L506.1000 #### [facility] [address] [place], [address] Absolute Neut 3.8 X10 3/uL Normal 2.0-7.7 [facility] Comment on above: Performed By: #### L 501.9520, L100.0100, L500.4050, L506.1000 #### [facility] [address] [place], [address] Basophils/100 WBC (Bld) 0.4 % Normal 0-1 [facility] Comment on above: Performed By: #### L 501.9520, L100.0100, L500.4050, L506.1000 #### [facility] [address] [place], [address] Eosinophils/100 WBC (Bld) 6.8 % High 0-5 [facility] Comment on above: Performed By: #### L 501.9520, L100.0100, L500.4050, L506.1000 #### [facility] [address] [place], [address] Erythrocyte distribution width (RBC) [Ratio] 12.0 % Normal 11.6-14.6 [facility] Comment on above: Performed By: #### L 501.9520, L100.0100, L500.4050, L506.1000 #### [facility] [address] [place], [address] Hematocrit (Bld) [Volume fraction] 42.3 % Normal 40-54 [facility] Comment on above: Performed By: #### L 501.9520, L100.0100, L500.4050, L506.1000 #### [facility] [address] [place], [address] Hemoglobin (Bld) [Mass/Vol] 14.3 g/dL Normal 13.0-16.5 [facility] Comment on above: Performed By: #### L 501.9520, L100.0100, L500.4050, L506.1000 #### [facility] [address] [place], [address] IG% 0.100 Normal 0.0-0.9 [facility] Comment on above: Result Comment: IG% - Immature Granulocytes (promyelocytes, myelocytes and metamyelocytes) > 1% indicates that a LEFT SHIFT is Present. Performed By: #### L 501.9520, L100.0100, L500.4050, L506.1000 #### [facility] [address] [place], [address] Lymphocytes/100 WBC (Bld) 27.6 % Normal 19-41 [facility] Comment on above: Performed By: #### L 501.9520, L100.0100, L500.4050, L506.1000 #### [facility] [address] [place], [address] MCH (RBC) [Entitic mass] 31.4 pg Normal 27.0-32.0 [facility] Comment on above: Performed By: #### L 501.9520, L100.0100, L500.4050, L506.1000 #### [facility] [address] [place], [address] MCHC (RBC) [Mass/Vol] 33.8 g/dL Normal 32-36 [facility] Comment on above: Performed By: #### L 501.9520, L100.0100, L500.4050, L506.1000 #### [facility] [address] [place], [address] MCV (RBC) [Entitic vol] 93.0 fL Normal 80-94 [facility] Comment on above: Performed By: #### L 501.9520, L100.0100, L500.4050, L506.1000 #### [facility] [address] [place], [address] Monocytes/100 WBC (Bld) 10.0 % Normal 0-10 [facility] Comment on above: Performed By: #### L 501.9520, L100.0100, L500.4050, L506.1000 #### [facility] [address] [place], [address] Neutrophils/100 WBC (Bld) 55.1 % Normal 47-70 [facility] Comment on above: Performed By: #### L 501.9520, L100.0100, L500.4050, L506.1000 #### [facility] [address] [place], [address] Nucleated RBC (Bld) [#/Vol] 0 10*3/uL Normal 0-5 [facility] Comment on above: Performed By: #### L 501.9520, L100.0100, L500.4050, L506.1000 #### [facility] [address] [place], [address] Platelet mean volume (Bld) [Entitic vol] 9.9 fL Normal 6.2-12.0 [facility] Comment on above: Performed By: #### L 501.9520, L100.0100, L500.4050, L506.1000 #### [facility] [address] [place], [address] Platelets (Bld) [#/Vol] 199 10*3/uL Normal 150-450 [facility] Comment on above: Performed By: #### L 501.9520, L100.0100, L500.4050, L506.1000 #### [facility] [address] [place], [address] RBC (Bld) [#/Vol] 4.55 10*6/uL Low 4.6-6.2 [facility] Comment on above: Performed By: #### L 501.9520, L100.0100, L500.4050, L506.1000 #### [facility] [address] [place], [address] RDW SD 41.1 fl Normal 35.1-43.9 [facility] Comment on above: Performed By: #### L 501.9520, L100.0100, L500.4050, L506.1000 #### [facility] [address] [place], [address] WBC (Bld) [#/Vol] 6.9 10*3/uL Normal 4.4-11.[address] [facility] Comment on above: Performed By: #### L 501.9520, L100.0100, L500.4050, L506.1000 #### [facility] [address] [place], [address] Comprehensive Metabolic Prof [facility] 10-11-2024 Albumin [Mass/Vol] 3.7 g/dL Normal 3.2-5.[address] [facility] Comment on above: Performed By: #### L 501.9520, L100.0100, L500.4050, L506.1000 #### [facility] [address] [place], [address] Albumin/Globulin [Mass ratio] 1.0 {ratio} Normal 0.9-2.4 [facility] Comment on above: Performed By: #### L 501.9520, L100.0100, L500.4050, L506.1000 #### [facility] [address] [place], [address] ALK P 71 U/L Normal 45-117 [facility] Comment on above: Performed By: #### L 501.9520, L100.0100, L500.4050, L506.1000 #### [facility] [address] [place], [address] ALT [Catalytic activity/Vol] 28 U/L Normal 16-61 [facility] Comment on above: Performed By: #### L 501.9520, L100.0100, L500.4050, L506.1000 #### [facility] [address] [place], [address] AST [Catalytic activity/Vol] 17 U/L Normal 15-37 [facility] Comment on above: Performed By: #### L 501.9520, L100.0100, L500.4050, L506.1000 #### [facility] [address] [place], [address] Bilirubin [Mass/Vol] 0.50 mg/dL Normal 0.20-1.00 [facility] Comment on above: Result Comment: For patients on eltrombopag therapy, use of Dimension [place] TBIL is not recommended. Performed By: #### L 501.9520, L100.0100, L500.4050, L506.1000 #### [facility] [address] [place], [address] BUN/CRE 14.5 RATIO Normal 10-20 [facility] Comment on above: Performed By: #### L 501.9520, L100.0100, L500.4050, L506.1000 #### [facility] [address] [place], [address] CA,Total 9.4 mg/dL Normal 8.5-10.1 [facility] Comment on above: Performed By: #### L 501.9520, L100.0100, L500.4050, L506.1000 #### [facility] [address] [place], [address] Chloride [Moles/Vol] 103 mmol/L Normal 98-107 [facility] Comment on above: Performed By: #### L 501.9520, L100.0100, L500.4050, L506.1000 #### [facility] [address] [place], [address] CO2 [Moles/Vol] 30.0 mmol/L Normal 21.0-32.0 [facility] Comment on above: Performed By: #### L 501.9520, L100.0100, L500.4050, L506.1000 #### [facility] [address] [place], [address] Creatinine [Mass/Vol] 1.17 mg/dL Normal 0.70-1.30 [facility] Comment on above: Result Comment: The validity of the calculated GFR GFRAA in patients over 70 years has not been determined. Clinical correlation is essential. Performed By: #### L 501.9520, L100.0100, L500.4050, L506.1000 #### [facility] [address] [place], [address] EST GFR - AA 78 mL/min Normal >60 [facility] Comment on above: Result Comment: Afri can [place] GFR Calc Performed By: #### L 501.9520, L100.0100, L500.4050, L506.1000 #### [facility] [address] [place], [address] GAP 6 Normal 5-15 [facility] Comment on above: Performed By: #### L 501.9520, L100.0100, L500.4050, L506.1000 #### [facility] [address] [place], [address] GFR/1.73 sq M.predicted among non-blacks MDRD (S/P/Bld) [Vol rate/Area] 64 mL/min/{1.73_m2} Normal >60 [facility] Comment on above: Result Comment: Non- GFR Calc Performed By: #### L 501.9520, L100.0100, L500.4050, L506.1000 #### [facility] [address] [place], [address] Globulin (S) [Mass/Vol] 3.7 g/dL Normal 2.2-4.2 [facility] Comment on above: Performed By: #### L 501.9520, L100.0100, L500.4050, L506.1000 #### [facility] [address] [place], [address] Glucose [Mass/Vol] 107 mg/dL High 74-[address] [facility] Comment on above: Result Comment: Fast ing Glucose result from 100 to 125 mg/dL suggests IMPAIRED HOMEOSTASIS per A.D.A. criteria. Performed By: #### L 501.9520, L100.0100, L500.4050, L506.1000 #### [facility] [address] [place], [address] Potassium [Moles/Vol] 3.7 mmol/L Normal 3.5-5.1 [facility] Comment on above: Performed By: #### L 501.9520, L100.0100, L500.4050, L506.1000 #### [facility] [address] [place], [address] Sodium [Moles/Vol] 139 mmol/L Normal 136-[address] [facility] Comment on above: Performed By: #### L 501.9520, L100.0100, L500.4050, L506.1000 #### [facility] [address] [place], [address] T PROT 7.4 g/dL Normal 6.4-8.2 [facility] Comment on above: Performed By: #### L 501.9520, L100.0100, L500.4050, L506.1000 #### [facility] [address] [place], [address] Urea nitrogen [Mass/Vol] 17 mg/dL Normal 7-18 [facility] Comment on above: Performed By: #### L 501.9520, L100.0100, L500.4050, L506.1000 #### [facility] [address] [place], [address] Thyroid Stim Hormone (TSH)on 10-11-2024 TSH 2.210 uIU/mL Normal 0.358-3.740 [facility] Comment on above: Performed By: #### L 501.9520, L100.0100, L500.4050, L506.1000 #### [facility] [address] [place], [address] Vitamin D,25 Hydroxyon 10-11 Vitamin D 25-OH 30.2 ng/mL Normal [facility] Comment on above: Result Comment: Brianna min D 25(OH) Status Range Deficiency <20 ng/mL (50nmol/L) Insufficiency 20 - 30 ng/mL (50 - 75 nmol/L) Sufficiency 30 - 100 ng/mL (75 - 250 nmol/L) Toxicity >100 ng/mL (>250 nmol/L) Performed By: #### L 501.9520, L100.0100, L500.4050, L506.1000 #### [facility] [address] [place], [address] Neurology Visit Reporton Neurology Visit Report [address], [address] [place] [address] OFFICE VISIT Date of Service: 08/17/24 MR#: [id number] Acct: [id number] Name: ERROL RIVERA Rep #: [id number] : 1945 Provider: Dr. Hnak pearl MD Age/Sex: 79/M Location: [facility] [place]. Status: Signed HPI HPI Chief Complaint: sore throat Details: Interim history: Errol returns for follow-up. He has a history of fibromyalgia, hypertension, peripheral arterial disease, stroke in 2018 (s/p left carotid endarterectomy, 2018), asthma, CAD, hyperlipidemia, sleep apnea, and cluster headaches. He began experiencing headaches when he was in his 20s. Over the years, his headaches have been mild temporal or occipital headaches. He does not have associated photophobia, phonophobia or nausea. Emotional stress and increased caffeine intake are triggers for his headaches. In the past, he experienced several days of headache per month. Within more recent years, his headaches have decreased in frequency and now occur about 2 days per month. His headaches subside after several hours after treatment with acetaminophen. He has fibromyalgia. Since his 30s, he has had diffuse muscle pain and tenderness affecting his torso and all extremities. Gabapentin has been effective in reducing his pain. He previously took amitriptyline for his fibromyalgia. Between 2005 and 2009, he had 3 episodes of severe, rapid onset, bitemporal headaches of a throbbing and pressure character. He did not experience associated photophobia, phonophobia, or nausea with these headaches, nor did he have associated vision change, numbness, or weakness. These headaches resolved spontaneously within 5-10 minutes. He did not have associated nasal discharge or tearing. He was previously evaluated by a neurologist and reported these severe headaches were diagnosed as cluster headaches. He was prescribed verapamil ER (later changed to verapamil IR due to cost) and has not had any further cluster headaches since initiation of this medication around 2009. His stroke in 2018 manifested with visual disturbance and aphasia that resolved within 48 hours. He takes aspirin 81mg daily and atorvastatin. He is on BiPAP for treatment of sleep apnea. His hemoglobin A1c and serum glucose are mildly elevated. Physical Exam: Neuro: The patient is awake and alert and responds appropriately; speech is fluent Neck: No bruits Heart: Regular rate and rhythm Supplemental Info EKG (04/07/2018): Normal sinus rhythm. Normal EKG. Brain CT 04/07/18 FINDINGS: Normal soft tissue structures. Normal calvarium. Normal size ventricles and extra-axial spaces for the patient's age. Mild white matter microangiopathic ischemic changes of the cerebral hemispheres. Normal basal ganglia and thalami. Normal brainstem. Normal cerebellum. There is no intracranial hemorrhage. There are no findings of an acute ischemic infarction. Left maxillary retention cyst. IMPRESSION: Mild age-related changes of the brain. These images were reviewed on 03/13/2021. Age-related diffuse cerebral atrophy is noted. Brain MRI 04/08/18 IMPRESSION: No MRI evidence of acute or subacute ischemic infarct. No MRI evidence of remote cortical-based ischemic infarct or old lacunar infarcts. No MRI evidence of intracranial mass or acute intracranial abnormality. These images were reviewed on 03/13/2021; on my review of the study a tiny right cerebellar acute infarct is noted. Head CTA 04/08/18 IMPRESSION: There is calcified plaque formation of the right cavernous carotid artery, with a mild stenosis (less than 50%). There is calcified plaque formation of the left cavernous carotid artery, with a mild stenosis (less than 50%). Normal [place] without a demonstrated aneurysm or hemodynamically significant stenosis. Neck CTA 04/08/18 VERTEBRAL ARTERIES: There is enhancement within the bilateral vertebral arteries with a small right vertebral artery, and a dominant left vertebral artery. There is 90% stenosis at the origin of the right vertebral artery. There is no significant stenosis at the origin of left vertebral artery. IMPRESSION: There is moderate atherosclerotic plaque formation of the origin of the left internal carotid artery with an estimated stenosis of 50-69% stenosis. There is an irregular ulcerated plaque at the origin of the left internal carotid artery. There is 90% stenosis at the origin of the right vertebral artery. The degree of stenosis calculation is in accordance with NASCET criteria. These images were reviewed on 03/13/2021. Head CTA (04/08/2018): Normal bilateral petrous carotid arteries. There is calcified plaque formation of the right cavernous carotid artery, with a mild stenosis (less than 50%). There is calcified plaque formation of the left cavernous carotid artery, with a mild stenosis (less than 50%). (more content not included)... Normal [facility] Pulmonary Visit Reporton Pulmonary Visit Report [facility] [place] [address] [place] [address] OFFICE VISIT Date of Service: 07/05/24 MR#: [id number] Acct: [id number] Name: ERROL RIVERA Rep #: [id number] : 1945 Provider: JESSICA Atkins Age/Sex: 79/M Location: [facility] Status: Signed Assessment and Plan Assessment and Plan (1) KAM (obstructive sleep apnea): Status: Chronic Plan: I have encouraged the patient to be compliant with PAP therapy every single night for a minimum of 4 hours, ideally 6 hours. If he continues to experience daytime hypersomnia despite excellent compliance, I would suggest that we proceed with a retitration study. He is hesitant to perform a retitration study because it was not a pleasant experience for him and he does not want to experience the cost associated with it. However, he is agreeable that if symptoms are not improved at his return office visit he will consider it. No change in pressure support as AHI is well- controlled. Return to the office in 6 months. Contact the office with any new or worsening symptoms in the meantime. 30 minutes spent [id number] discussing with the patient today. He was also provided with his annual high-dose influenza vaccination today. (2) Asthma: Status: Chronic Qualifiers: Asthma severity: mild Asthma persistence: intermittent Asthma complication type: uncomplicated Qualified Code(s): J45.20 - Mild intermittent asthma, uncomplicated Plan: The patient has been symptomatically controlled with as needed inhaled corticosteroid. I have provided him with a sample of Airsupra. He is going to use it over the next week or 2. If he likes the medication he will contact the office and we will put an order in for the prescription. No change in other maintenance medications. (3) Obesity: Status: Chronic Qualifiers: Obesity type: due to excess calories Obesity classification: adult class 1 (BMI 30 - 34.9) Serious obesity comorbidity presence: with serious comorbidity Body mass index: BMI 30.0-30.9 Qualified Code(s): E66.09 - Other obesity due to excess calories; Z68.30 - Body mass index [BMI] 30.0-30.9, adult Plan: Continue to encourage healthy weight loss. (4) Hypoxia: Status: Acute Plan: Previously identified hypoxia while on PAP therapy. Unfortunately, the patient is not currently agreeable to a retitration study to qualify for supplemental oxygen bleed. We will reevaluate this at the next office visit. Orders: Orders Influenza Immunization Today J44.9 - Chronic obstructive pulmonary disease, unspecified Plan Details Follow Up: 6 Months ([facility]) HPI 3 M FU Chief Complaint: PAP therapy HPI Comments Details: This patient presents to the office today for follow-up of his obstructive sleep apnea and asthma. He is ambulatory and currently on room air. He has not recently been seen in the ED or urgent care for any respiratory illness. He has not required any antibiotics or prednisone for any breathing problems. He has not been on Qvar for several months due to cost. He reports that his primary care doctor gave him a sample of an alternative, however he does not recall what the name of that medication is. He did find it to be effective. He has not recently needed to use his albuterol rescue inhaler. He estimates that he probably uses it 1 or 2 times per month. He does have shortness of breath on exertion, for example walking up an incline or walking across my field. He denies any cough, sputum production or hemoptysis. He denies any wheezing, chest tightness, chest pain or palpitations. He has not had any fever, chills or body aches. If you recall, this patient was a smoker, however he quit smoking back in the 1970s. He continues to struggle with being compliant with PAP therapy. He states that sometimes he falls asleep before putting it on. He is not having difficulty with dry mouth. He is not having mask leaks. He feels as though he is receiving a lot of pressure and has to tighten the mask as tight as I possibly can. He does have occasional headaches. He is not always feeling rested in the morning. Compliance report for the past 30 days shows 83% compliance with average use of nearly 4 hours and 20 minutes per night. Current setting is BiPAP 10/6 cmH2O with residual AHI 0.8 events per hour. Leaks do not appear to be problematic. Test results personally reviewed with the patient: Walking oximetry completed on February 26, 2024. Patient was able to ambulate 1125 feet over the course of 6 minutes. He did not become hypoxic and does not currently require any supplemental oxygen. Intake Vital Signs 02/17/24 07:49 02/26/24 12:44 07/05/24 07:55 Height 5 ft 10 in 5 ft 10 in 5 ft 10 in Weight: 216 lb BMI 30.9 BP 122/79 H Blood Pressure Location Rt brachial Po (more content not included)... Normal [facility] - Microbiology an d Antimicrobial susceptibilityOrdered By: Teo Lamb on 12-25-2023 SARS-CoV-2 (COVID-19) RNA VALDO+probe Ql (Unsp spec) [facility] Basophil percentageOrdered B y: Hank Ray on 12-02-2023 Chloride [Moles/Vol] 106 mmol/L 98-107 [facility] Glucose [Mass/Vol] 114 mg/dL 74-[address] [facility] Comment on above: Fasting Glucose resu lt from 100 to 125 mg/dL suggests IMPAIRED HOMEOSTASIS per A.D.A. criteria. Potassium [Moles/Vol] 3.5 mmol/L 3.5-5.1 [facility] Sodium [Moles/Vol] 142 mmol/L 136-[address] [facility] - Chemistry and C hemistry - challengeOrdered By: Hank Ray on 12-02-2023 CO2 [Moles/Vol] 28.0 mmol/L 21.0-32.0 [facility] Urea nitrogen/Creatinine [Mass ratio] 13.4 mg/mg 10-20 [facility] No Panel InformationOrdered By: Hank Ray on 12-02-2023 Estimated GFR (MDRD) Amer 82 mL/min >60 [facility] Comment on above: GFR Calc Estimated GFR (MDRD) Non-Af Amer 68 mL/min >60 [facility] Comment on above: Non- GFR Calc Serum or plasma calcium aneudy urement (mass/volume)Ordered By: Hank Ray on 12-02-2023 Calcium [Mass/Vol] 8.9 mg/dL 8.5-10.[address] [facility] Serum or plasma creatinine m easurement (mass/volume)Ordered By: Hank Ray on 12-02-2023 Creatinine [Mass/Vol] 1.12 mg/dL 0.70-1.30 [facility] Comment on above: The validity of the calculated GFR & GFRAA in patients over 70 years has not been determined. Clinical correlation is essential. Serum or plasma urea nitroge n measurement (mass/volume)Ordered By: Hank Ray on 12-02-2023 Urea nitrogen [Mass/Vol] 15 mg/dL 7-18 [facility] Thin prep Papanicolaou smear with manual screeningOrdered By: Hank Ray on 12-02-2023 Thin prep Papanicolaou smear with manual screening 8 5-15 [facility] Whole blood hemoglobin A1c/t otal hemoglobin ratio (mass fraction)Ordered By: Hank Ray on 12-02-2023 HbA1c (Bld) [Mass fraction] 6.2 % 3.8-5.6 [facility] Comment on above: Normal < 5.7 % Predi abetic 5.7 - 6.4 % Diabetic >or= 6.5 % Please note range changes. Basophil percentageOrdered B y: Teo Lamb on 10-22-2023 Basophil percentage ost [facility] Basophil percentage [facility] - Microbiology an d Antimicrobial susceptibilityOrdered By: Teo Lamb on 10-22-2023 SARS-CoV-2 (COVID-19) RNA VALDO+probe Ql (Unsp spec) [facility] SARS-CoV-2 (COVID-19) RNA VALDO+probe Ql (Unsp spec) [facility] No Panel InformationOrdered By: Teo Lamb on 10-22-2023 Influenza Types A,B Direct FA (DEVON) [facility] Influenza Types A,B Direct FA (DEVON) [facility] Laboratory - Microbiology an d Antimicrobial susceptibilityon 10-10-2023 S. pyogenes Ag IA Ql (Unsp spec) Negative [facility] Absolute lymphocyte countOrd ered By: Teo Lamb on 09-10-2023 Lymphocytes Auto (Unsp spec) [#/Vol] 1.70 10*3/uL 0.83-4.51 [facility] Basophil percentageOrdered B y: Teo Lamb on 09-10-2023 Basophils/100 WBC (Bld) 0.5 % 0-1 [facility] Bilirubin [Mass/Vol] 0.50 mg/dL 0.20-1.00 [facility] Comment on above: For patients on eltr ombopag therapy, use of Dimension [place] TBIL is not recommended. Chloride [Moles/Vol] 104 mmol/L 98-107 [facility] Cholesterol [Mass/Vol] 127 mg/dL <200 [facility] Comment on above: <200 mg/dL Desirable 200-240 mg/dL Borderline >240 mg/dL High Risk Eosinophils/100 WBC (Bld) 3.8 % 0-5 [facility] Glucose [Mass/Vol] 158 mg/dL 74-[address] [facility] Comment on above: Fasting Glucose resu lt greater than or equal to 126 mg/dL suggests DIABETES MELLITUS per A.D.A. criteria. Neutrophils (Bld) [#/Vol] 3.4 10*3/uL 2.0-7.7 [facility] Neutrophils/100 WBC (Bld) 58.2 % 47-70 [facility] Potassium [Moles/Vol] 3.5 mmol/L 3.5-5.1 [facility] Protein [Mass/Vol] 7.4 g/dL 6.4-8.[address] [facility] Sodium [Moles/Vol] 139 mmol/L 136-[address] [facility] Triglyceride [Mass/Vol] 120 mg/dL <199 [facility] Comment on above: The drugs N-Acetylcy steine and Metamizole may falsely depress this assay.Serum Triglycerides Reference Interval Normal <150 mg/dL Borderline high 150 - 199 mg/dL High 200 - 499 mg/dL Very High > or = 500 mg/dL WBC (Bld) [#/Vol] 5.8 10*3/uL 4.4-11.[address] [facility] Blood erythrocytes count (nu mber/volume)Ordered By: Teo Lamb on 09-10-2023 RBC (Bld) [#/Vol] 4.34 10*6/uL 4.6-6.2 [facility] Blood hemoglobin measurement (mass/volume)Ordered By: Teo Lamb on 09-10-2023 Hemoglobin (Bld) [Mass/Vol] 13.5 g/dL 13.0-16.5 [facility] Blood lymphocytes/100 leukoc ytesOrdered By: Teo Lamb on 09-10-2023 Lymphocytes/100 WBC (Bld) 29.4 % 19-41 [facility] Blood monocytes/100 leukocyt esOrdered By: [facility] Monocytes/100 WBC (Bld) 7.8 % 0-10 [facility] Blood platelet mean volumeOr dered By: [facility] on 09-10-2023 Platelet mean volume (Bld) [Entitic vol] 10.0 fL 6.2-12.0 [facility] Determination of erythrocyte mean corpuscular volume (MCV)[facility] MCV (RBC) [Entitic vol] 94.9 fL 80-94 [facility] Hematocrit Auto (Bld) [Volum e fraction]Ordered By: [facility] on 09-10-2023 Hematocrit (Bld) [Volume fraction] 41.2 % 40-54 [facility] Laboratory - Chemistry and C hemistry - challengeOrdered By: [facility] 09-10-2023 ALP [Catalytic activity/Vol] 71 U/L 45-117 [facility] ALT [Catalytic activity/Vol] 34 U/L 16-61 [facility] CO2 [Moles/Vol] 29.0 mmol/L 21.0-32.0 [facility] Globulin (S) [Mass/Vol] 3.8 g/dL 2.2-4.2 [facility] Urea nitrogen/Creatinine [Mass ratio] 9.1 mg/mg 10-20 [facility] Laboratory - Hematology and Cell countsOrdered By: [facility] 09-10-2023 Erythrocyte distribution width (RBC) [Entitic vol] 42.5 fL 35.1-43.[address] [facility] Erythrocyte distribution width (RBC) [Ratio] 12.1 % 11.6-14.6 [facility] Immature granulocytes/100 WBC (Bld) 0.300 % 0.0-0.9 [facility] Comment on above: IG% - Immature Granu locytes (promyelocytes, myelocytes and metamyelocytes) > 1% indicates that a LEFT SHIFT is Present. MCH (RBC) [Entitic mass] 31.1 pg 27.0-32.0 [facility] Nucleated RBC/100 WBC (Bld) [Ratio] 0 % 0-5 [facility] MCHC Auto (RBC) [Mass/Vol]Or dered By: Teo Lamb on 09-10-2023 MCHC (RBC) [Mass/Vol] 32.8 g/dL 32-36 [facility] No Panel InformationOrdered By: Teo Lamb on 09-10-2023 Estimated GFR (MDRD) Amer 68 mL/min >60 [facility] Comment on above: GFR Calc Estimated GFR (MDRD) Non-Af Amer 56 mL/min >60 [facility] Comment on above: Non- GFR Calc Thyroid Stimulating Hormone (TSH) 2.63 uIU/mL 0.358-3.74 [facility] Vitamin D 25-Hydroxy 38.0 ng/mL [facility] Comment on above: Vitamin D 25(OH) Sta tus Range Deficiency <20 ng/mL (50nmol/L) Insufficiency 20 - 30 ng/mL (50 - 75 nmol/L) Sufficiency 30 - 100 ng/mL (75 - 250 nmol/L) Toxicity >100 ng/mL (>250 nmol/L) Platelets bldOrdered By: Teo Lamb on 09-10-2023 Platelets (Bld) [#/Vol] 194 10*3/uL 150-450 [facility] Serum or plasma albumin aneudy urement (mass/volume)Ordered By: Teo Lamb on 09-10-2023 Albumin [Mass/Vol] 3.6 g/dL 3.2-5.[address] [facility] Serum or plasma albumin/glob ulin mass ratioOrdered By: Teo Lamb 09-10-2023 Albumin/Globulin [Mass ratio] 0.9 {ratio} 0.9-2.4 [facility] Serum or plasma calcium aneudy urement (mass/volume)Ordered By: Teo Lamb 09-10-2023 Calcium [Mass/Vol] 8.7 mg/dL 8.5-10.[address] [facility] Serum or plasma cholesterol in HDL measurement (mass/volume)Ordered By: Teo Lamb on 09-10-2023 Cholesterol in HDL [Mass/Vol] 49 mg/dL >40 [facility] Comment on above: The drugs N-Acetylcy steine and Metamizole may falsely depress this assay. Reference Range HDL <40 mg/dL Low HDL Cholesterol HDL >or= 60 mg/dL High HDL Cholesterol Serum or plasma cholesterol in VLDL measurement (mass/volume)Ordered By: Teo Lamb on 09-10-2023 Cholesterol in VLDL [Mass/Vol] 24 mg/dL 5-40 [facility] Serum or plasma creatinine m easurement (mass/volume)Ordered By: Teo Lamb on 09-10-2023 Creatinine [Mass/Vol] 1.32 mg/dL 0.70-1.30 [facility] Comment on above: The validity of the calculated GFR & GFRAA in patients over 70 years has not been determined. Clinical correlation is essential. Serum or plasma low density lipoprotein (LDL) cholesterol measurement (mass/volume)Ordered By: Teo Lamb on 09-10-2023 Cholesterol in LDL [Mass/Vol] 54 mg/dL 0-130 [facility] Serum or plasma urea nitroge n measurement (mass/volume)Ordered By: Teo Lamb on 09-10-2023 Urea nitrogen [Mass/Vol] 12 mg/dL 7-18 [facility] Thin prep Papanicolaou smear with manual screeningOrdered By: Teo Lamb on 09-10-2023 Thin prep Papanicolaou smear with manual screening 21 U/L 15-37 [facility] Thin prep Papanicolaou smear with manual screening 6 5-15 [facility] Absolute lymphocyte countOrd ered By: Costa Ashby on 03-13-2023 Lymphocytes Auto (Unsp spec) [#/Vol] 1.90 10*3/uL 0.83-4.51 [facility] Basophil percentageOrdered B y: Costa Ashby on 03-13-2023 Basophils/100 WBC (Bld) 0.4 % 0-1 [facility] Bilirubin [Mass/Vol] 0.40 mg/dL 0.20-1.00 [facility] Comment on above: For patients on eltr ombopag therapy, use of Dimension [place] TBIL is not recommended. Chloride [Moles/Vol] 105 mmol/L 98-107 [facility] Cholesterol [Mass/Vol] 113 mg/dL <200 [facility] Comment on above: <200 mg/dL Desirable 200-240 mg/dL Borderline >240 mg/dL High Risk Eosinophils/100 WBC (Bld) 4.8 % 0-5 [facility] Glucose [Mass/Vol] 119 mg/dL 74-[address] [facility] Comment on above: Fasting Glucose resu lt from 100 to 125 mg/dL suggests IMPAIRED HOMEOSTASIS per A.D.A. criteria. Neutrophils (Bld) [#/Vol] 3.8 10*3/uL 2.0-7.7 [facility] Neutrophils/100 WBC (Bld) 57.0 % 47-70 [facility] Potassium [Moles/Vol] 3.9 mmol/L 3.5-5.1 [facility] Protein [Mass/Vol] 6.8 g/dL 6.4-8.[address] [facility] Sodium [Moles/Vol] 142 mmol/L 136-[address] [facility] Triglyceride [Mass/Vol] 120 mg/dL <199 [facility] Comment on above: The drugs N-Acetylcy steine and Metamizole may falsely depress this assay.Serum Triglycerides Reference Interval Normal <150 mg/dL Borderline high 150 - 199 mg/dL High 200 - 499 mg/dL Very High > or = 500 mg/dL WBC (Bld) [#/Vol] 6.7 10*3/uL 4.4-11.[address] [facility] Blood erythrocytes count (nu mber/volume)Ordered By: Costa Ashby on 03-13-2023 RBC (Bld) [#/Vol] 4.16 10*6/uL 4.6-6.2 [facility] Blood hemoglobin measurement (mass/volume)Ordered By: Costa Ashby on 03-13-2023 Hemoglobin (Bld) [Mass/Vol] 13.0 g/dL 13.0-16.5 [facility] Blood lymphocytes/100 leukoc ytesOrdered By: Costa Ashby on 03-13-2023 Lymphocytes/100 WBC (Bld) 28.3 % 19-41 [facility] Blood monocytes/100 leukocyt esOrdered By: Costa Ashby on 03-13-2023 Monocytes/100 WBC (Bld) 9.2 % 0-10 [facility] Blood platelet mean volumeOr dered By: Costa Ashby on 03-13-2023 Platelet mean volume (Bld) [Entitic vol] 9.9 fL 6.2-12.0 [facility] Determination of erythrocyte mean corpuscular volume (MCV)Ordered By: Costa Ashby on 03-13-2023 MCV (RBC) [Entitic vol] 93.8 fL 80-94 [facility] Direct bilirubinOrdered By: [facility] on 03-13-2023 Bilirubin.direct [Mass/Vol] 0.13 mg/dL 0.00-0.30 [facility] Hematocrit Auto (Bld) [Volum e fraction]Ordered By: [facility] on 03-13-2023 Hematocrit (Bld) [Volume fraction] 39.0 % 40-54 [facility] Laboratory - Chemistry and C hemistry - challengeOrdered By: [facility] on 03-13-2023 ALP [Catalytic activity/Vol] 82 U/L 45-117 [facility] ALT [Catalytic activity/Vol] 34 U/L 16-61 [facility] CO2 [Moles/Vol] 29.0 mmol/L 21.0-32.0 [facility] Globulin (S) [Mass/Vol] 3.1 g/dL 2.2-4.2 [facility] Urea nitrogen/Creatinine [Mass ratio] 16.7 mg/mg 10-20 [facility] Laboratory - Hematology and Cell countsOrdered By: [facility] on 03-13-2023 Erythrocyte distribution width (RBC) [Entitic vol] 44.4 fL 35.1-43.[address] [facility] Erythrocyte distribution width (RBC) [Ratio] 13.1 % 11.6-14.6 [facility] Immature granulocytes/100 WBC (Bld) 0.300 % 0.0-0.9 [facility] Comment on above: IG% - Immature Granu locytes (promyelocytes, myelocytes and metamyelocytes) > 1% indicates that a LEFT SHIFT is Present. MCH (RBC) [Entitic mass] 31.3 pg 27.0-32.0 [facility] Nucleated RBC/100 WBC (Bld) [Ratio] 0 % 0-5 [facility] MCHC Auto (RBC) [Mass/Vol]Or dered By: Costa Isma on 03-13-2023 MCHC (RBC) [Mass/Vol] 33.3 g/dL 32-36 [facility] No Panel InformationOrdered By: Costa Ashby on 03-13-2023 Estimated GFR (MDRD) Amer 80 mL/min >60 [facility] Comment on above: GFR Calc Estimated GFR (MDRD) Non-Af Amer 66 mL/min >60 [facility] Comment on above: Non- GFR Calc Thyroid Stimulating Hormone (TSH) 2.57 uIU/mL 0.358-3.74 [facility] Vitamin D 25-Hydroxy 42.0 ng/mL [facility] Comment on above: Vitamin D 25(OH) Sta tus Range Deficiency <20 ng/mL (50nmol/L) Insufficiency 20 - 30 ng/mL (50 - 75 nmol/L) Sufficiency 30 - 100 ng/mL (75 - 250 nmol/L) Toxicity >100 ng/mL (>250 nmol/L) Platelets bldOrdered By: Yamil Ashby on 03-13-2023 Platelets (Bld) [#/Vol] 214 10*3/uL 150-450 [facility] Serum or plasma albumin aneudy urement (mass/volume)Ordered By: Costa Ashby on 03-13-2023 Albumin [Mass/Vol] 3.7 g/dL 3.2-5.[address] [facility] Serum or plasma albumin/glob ulin mass ratioOrdered By: Costa Ashby on 03-13-2023 Albumin/Globulin [Mass ratio] 1.2 {ratio} 0.9-2.4 [facility] Serum or plasma calcium aneudy urement (mass/volume)Ordered By: Costa Ashby on 03-13-2023 Calcium [Mass/Vol] 8.8 mg/dL 8.5-10.[address] [facility] Serum or plasma cholesterol in HDL measurement (mass/volume)Ordered By: Costa Ashby on 03-13-2023 Cholesterol in HDL [Mass/Vol] 44 mg/dL >40 [facility] Comment on above: The drugs N-Acetylcy steine and Metamizole may falsely depress this assay. Reference Range HDL <40 mg/dL Low HDL Cholesterol HDL >or= 60 mg/dL High HDL Cholesterol Serum or plasma cholesterol in VLDL measurement (mass/volume)Ordered By: Costa Ashby on 03-13-2023 Cholesterol in VLDL [Mass/Vol] 24 mg/dL 5-40 [facility] Serum or plasma creatinine m easurement (mass/volume)Ordered By: Costa Ashby on 03-13-2023 Creatinine [Mass/Vol] 1.14 mg/dL 0.70-1.30 [facility] Comment on above: The validity of the calculated GFR & GFRAA in patients over 70 years has not been determined. Clinical correlation is essential. Serum or plasma low density lipoprotein (LDL) cholesterol measurement (mass/volume)Ordered By: Costa Ashby on 03-13-2023 Cholesterol in LDL [Mass/Vol] 45 mg/dL 0-130 [facility] Serum or plasma urea nitroge n measurement (mass/volume)Ordered By: Costa Ashby on 03-13-2023 Urea nitrogen [Mass/Vol] 19 mg/dL 7-18 [facility] Thin prep Papanicolaou smear with manual screeningOrdered By: Costa Ashby on 03-13-2023 Thin prep Papanicolaou smear with manual screening 19 U/L 15-37 [facility] Thin prep Papanicolaou smear with manual screening 8 5-15 [facility] Absolute lymphocyte countOrd ered By: Dr. Lamb on 09-05-2022 Lymphocytes Auto (Unsp spec) [#/Vol] 1.83 10*3/uL 0.83-4.51 [facility] Basophil percentageOrdered B y: Dr. Lamb on 09-05-2022 Basophils/100 WBC (Bld) 0.5 % 0-1 [facility] Bilirubin [Mass/Vol] 0.50 mg/dL 0.20-1.00 [facility] Comment on above: For patients on eltr ombopag therapy, use of Dimension [place] TBIL is not recommended. Chloride [Moles/Vol] 105 mmol/L 98-107 [facility] Eosinophils/100 WBC (Bld) 5.3 % 0-5 [facility] Glucose [Mass/Vol] 144 mg/dL 74-[address] [facility] Comment on above: Fasting Glucose resu lt greater than or equal to 126 mg/dL suggests DIABETES MELLITUS per A.D.A. criteria. Neutrophils (Bld) [#/Vol] 3.3 10*3/uL 2.0-7.7 [facility] Neutrophils/100 WBC (Bld) 55.5 % 47-70 [facility] Potassium [Moles/Vol] 3.6 mmol/L 3.5-5.1 [facility] Protein [Mass/Vol] 7.0 g/dL 6.4-8.[address] [facility] Sodium [Moles/Vol] 142 mmol/L 136-[address] [facility] WBC (Bld) [#/Vol] 6.0 10*3/uL 4.4-11.[address] [facility] Blood erythrocytes count (nu mber/volume)Ordered By: Dr. Lamb on 09-05-2022 RBC (Bld) [#/Vol] 4.49 10*6/uL 4.6-6.2 [facility] Blood hemoglobin measurement (mass/volume)Ordered By: Dr. Lamb on 09-05-2022 Hemoglobin (Bld) [Mass/Vol] 14.2 g/dL 13.0-16.5 [facility] Blood lymphocytes/100 leukoc ytesOrdered By: Dr. Lamb on 09-05-2022 Lymphocytes/100 WBC (Bld) 30.4 % 19-41 [facility] Blood monocytes/100 leukocyt esOrdered By: Dr. Lamb on 09-05-2022 Monocytes/100 WBC (Bld) 8.1 % 0-10 [facility] Blood platelet mean volumeOr dered By: Dr. Lamb on 09-05-2022 Platelet mean volume (Bld) [Entitic vol] 9.9 fL 6.2-12.0 [facility] Determination of erythrocyte mean corpuscular volume (MCV)Ordered By: Dr. Lamb on 09-05-2022 MCV (RBC) [Entitic vol] 96.0 fL 80-94 [facility] Hematocrit Auto (Bld) [Volum e fraction]Ordered By: Dr. Lamb on 09-05-2022 Hematocrit (Bld) [Volume fraction] 43.1 % 40-54 [facility] Laboratory - Chemistry and C hemistry - challengeOrdered By: Dr. Lamb on 09-05-2022 ALP [Catalytic activity/Vol] 78 U/L 45-117 [facility] ALT [Catalytic activity/Vol] 34 U/L 16-61 [facility] CO2 [Moles/Vol] 27.0 mmol/L 21.0-32.0 [facility] Globulin (S) [Mass/Vol] 3.5 g/dL 2.2-4.2 [facility] Urea nitrogen/Creatinine [Mass ratio] 12.0 mg/mg 10-20 [facility] Laboratory - Hematology and Cell countsOrdered By: Dr. Lamb on 09-05-2022 Erythrocyte distribution width (RBC) [Entitic vol] 44.3 fL 35.1-43.[address] [facility] Erythrocyte distribution width (RBC) [Ratio] 12.6 % 11.6-14.6 [facility] Immature granulocytes/100 WBC (Bld) 0.200 % 0.0-0.9 [facility] Comment on above: IG% - Immature Granu locytes (promyelocytes, myelocytes and metamyelocytes) > 1% indicates that a LEFT SHIFT is Present. MCH (RBC) [Entitic mass] 31.6 pg 27.0-32.0 [facility] Nucleated RBC/100 WBC (Bld) [Ratio] 0 % 0-5 [facility] MCHC Auto (RBC) [Mass/Vol]Or dered By: Dr. Lamb on 09-05-2022 MCHC (RBC) [Mass/Vol] 32.9 g/dL 32-36 [facility] No Panel InformationOrdered By: Dr. Lamb on 09-05-2022 Estimated GFR (MDRD) Amer 85 mL/min >60 [facility] Comment on above: GFR Calc Estimated GFR (MDRD) Non-Af Amer 71 mL/min >60 [facility] Comment on above: Non- GFR Calc Thyroid Stimulating Hormone (TSH) 2.56 uIU/mL 0.358-3.74 [facility] Vitamin D 25-Hydroxy 35.3 ng/mL [facility] Comment on above: Vitamin D 25(OH) Sta tus Range Deficiency <20 ng/mL (50nmol/L) Insufficiency 20 - 30 ng/mL (50 - 75 nmol/L) Sufficiency 30 - 100 ng/mL (75 - 250 nmol/L) Toxicity >100 ng/mL (>250 nmol/L) Platelets bldOrdered By: Dr. Lamb on 09-05-2022 Platelets (Bld) [#/Vol] 169 10*3/uL 150-450 [facility] Serum or plasma albumin aneudy urement (mass/volume)Ordered By: Dr. Lamb on 09-05-2022 Albumin [Mass/Vol] 3.5 g/dL 3.2-5.[address] [facility] Serum or plasma albumin/glob ulin mass ratioOrdered By: Dr. Lamb on 09-05-2022 Albumin/Globulin [Mass ratio] 1.0 {ratio} 0.9-2.4 [facility] Serum or plasma calcium aneudy urement (mass/volume)Ordered By: Dr. Lamb on 09-05-2022 Calcium [Mass/Vol] 8.8 mg/dL 8.5-10.[address] [facility] Serum or plasma creatinine m easurement (mass/volume)Ordered By: Dr. Lamb on 09-05-2022 Creatinine [Mass/Vol] 1.08 mg/dL 0.70-1.30 [facility] Comment on above: The validity of the calculated GFR & GFRAA in patients over 70 years has not been determined. Clinical correlation is essential. Serum or plasma urea nitroge n measurement (mass/volume)Ordered By: Dr. Lamb on 09-05-2022 Urea nitrogen [Mass/Vol] 13 mg/dL 7-18 [facility] Thin prep Papanicolaou smear with manual screeningOrdered By: Dr. Lamb on 09-05-2022 Thin prep Papanicolaou smear with manual screening 18 U/L 15-37 [facility] Thin prep Papanicolaou smear with manual screening 10 5-15 [facility] Laboratory - Microbiology an d Antimicrobial susceptibilityOrdered By: Dr. Lamb on 08-20-2022 SARS-CoV-2 (COVID-19) RNA VALDO+probe Ql (Unsp spec) Not detected Not Detect [facility] Comment on above: Normal Reference Ran ge: Not DetectedMethod:(RT-PCR) real-time reverse transcriptase PCRLuminex CHRISTIE Instrument*The Food and Drug Administration (FDA) has issued an Emergency Use Authorization (EAU) for the [employer] SARS-CoV-2 Assay for the rapid detection of the virus that causes COVID-19. This test has been validated, but the FDAs independent review of this validation is pending.*Negative results do not preclude infection and should not be used as the sole basis for treatment or patient management. Optimum specimen types and timing for peak viral levels during infections caused by SARS-CoV-2 have not been determined. Collection of multiple specimens from the same patient may be necessary to detect the virus. The possibility of a false negative result should be considered if the patient has clinical presentation or has had recent exposure. No Panel InformationOrdered By: Dr. Lamb on 08-20-2022 Influenza Types A,B Direct FA (DEVON) [facility] RSV Ag EIAOrdered By: Dr. Zan ma on 08-20-2022 RSV Ag Immune stain Ql (Tiss) [facility] Basophil percentageon 2021 Bilirubin [Mass/Vol] 0.40 mg/dL 0.20-1.00 [facility] Work Phone: [phone] Comment on above: For patients on eltr ombopag therapy, use of Dimension [place] TBIL is not recommended. Chloride [Moles/Vol] 106 mmol/L 98-107 [facility] Work Phone: [phone] Cholesterol [Mass/Vol] 128 mg/dL <200 [facility] Work Phone: [phone] Comment on above: <200 mg/dL Desirable 200-240 mg/dL Borderline >240 mg/dL High Risk Glucose [Mass/Vol] 145 mg/dL 74-[address] [facility] Work Phone: [phone] Comment on above: Fasting Glucose resu lt greater than or equal to 126 mg/dL suggests DIABETES MELLITUS per A.D.A. criteria. Potassium [Moles/Vol] 3.8 mmol/L 3.5-5.1 [facility] Work Phone: [phone] Protein [Mass/Vol] 7.3 g/dL 6.4-8.[address] [facility] Work Phone: [phone] Sodium [Moles/Vol] 141 mmol/L 136-[address] [facility] Work Phone: [phone] Triglyceride [Mass/Vol] 119 mg/dL <199 [facility] Work Phone: Comment on above: The drugs N-Acetylcy steine and Metamizole may falsely depress this assay.Serum Triglycerides Reference Interval Normal <150 mg/dL Borderline high 150 - 199 mg/dL High 200 - 499 mg/dL Very High > or = 500 mg/dL Direct bilirubinon Bilirubin.direct [Mass/Vol] 0.11 mg/dL 0.00-0.30 [facility] Work Phone: [phone] Laboratory - Chemistry and C hemistry - challengeon 06-04-2022 ALP [Catalytic activity/Vol] 84 U/L 45-117 [facility] Work Phone: [phone] ALT [Catalytic activity/Vol] 28 U/L 16-61 [facility] Work Phone: [phone] CO2 [Moles/Vol] 29.0 mmol/L 21.0-32.0 [facility] Work Phone: [phone] Globulin (S) [Mass/Vol] 3.6 g/dL 2.2-4.2 [facility] Work Phone: [phone] Urea nitrogen/Creatinine [Mass ratio] 9.7 mg/mg 10-20 [facility] Work Phone: [phone] Panel Informationon 06-04 Estimated GFR (MDRD) Amer 90 mL/min >60 [facility] Work Phone: [phone] Comment on above: GFR Calc Estimated GFR (MDRD) Non-Af Amer 75 mL/min >60 [facility] Work Phone: [phone] Comment on above: Non- GFR Calc Serum or plasma albumin aneudy urement (mass/volume)on 06-04-2022 Albumin [Mass/Vol] 3.7 g/dL 3.2-5.[address] [facility] Work Phone: [phone] Serum or plasma calcium aneudy urement (mass/volume)on 06-04-2022 Calcium [Mass/Vol] 8.7 mg/dL 8.5-10.[address] [facility] Work Phone: Serum or plasma cholesterol in HDL measurement (mass/volume)on 06-04-2022 Cholesterol in HDL [Mass/Vol] 43 mg/dL >40 [facility] Work Phone: Comment on above: The drugs N-Acetylcy steine and Metamizole may falsely depress this assay. Reference Range HDL <40 mg/dL Low HDL Cholesterol HDL >or= 60 mg/dL High HDL Cholesterol Serum or plasma cholesterol in VLDL measurement (mass/volume)on 06-04-2022 Cholesterol in VLDL [Mass/Vol] 24 mg/dL 5-40 [facility] Work Phone: [phone] Serum or plasma creatinine m easurement (mass/volume)on 06-04-2022 Creatinine [Mass/Vol] 1.03 mg/dL 0.70-1.30 [facility] Work Phone: Comment on above: The validity of the calculated GFR & GFRAA in patients over 70 years has not been determined. Clinical correlation is essential. Serum or plasma low density lipoprotein (LDL) cholesterol measurement (mass/volume)on 06-04-2022 Cholesterol in LDL [Mass/Vol] 61 mg/dL 0-130 [facility] Work Phone: Serum or plasma urea nitroge n measurement (mass/volume)on 06-04-2022 Urea nitrogen [Mass/Vol] 10 mg/dL 7-18 [facility] Work Phone: [phone] Thin prep Papanicolaou smear with manual screeningon 06-04-2022 Thin prep Papanicolaou smear with manual screening 16 U/L 15-37 [facility] Work Phone: [phone] Thin prep Papanicolaou smear with manual screening 6 5-15 [facility] Work Phone: [phone] Basophil percentageon 2021 Chloride [Moles/Vol] 107 mmol/L 98-107 [facility] Work Phone: Glucose [Mass/Vol] 160 mg/dL 74-106 [facility] Work [facility]: Comment on above: Fasting Glucose resu lt greater than or equal to 126 mg/dL suggests DIABETES MELLITUS per A.D.A. criteria. Potassium [Moles/Vol] 3.7 mmol/L 3.5-5.1 [facility] Work Phone: Sodium [Moles/Vol] 140 mmol/L 136-[address] [facility] Work Phone: Laboratory - Chemistry and C hemistry - challengeon 03-21-2022 CO2 [Moles/Vol] 26.0 mmol/L 21.0-32.0 [facility] Work Phone: Urea nitrogen/Creatinine [Mass ratio] 10.7 mg/mg 10-20 [facility] Work Phone: No Panel Informationon 03-21 Estimated GFR (MDRD) Amer 74 mL/min >60 [facility] Work Phone: Comment on above: GFR Calc Estimated GFR (MDRD) Non-Af Amer 61 mL/min >60 [facility] Work Phone: Comment on above: Non- GFR Calc Serum or plasma calcium aneudy urement (mass/volume)on 03-21-2022 Calcium [Mass/Vol] 8.6 mg/dL 8.5-10.[address] [facility] Work Phone: Serum or plasma creatinine m easurement (mass/volume)on 03-21-2022 Creatinine [Mass/Vol] 1.22 mg/dL 0.70-1.30 [facility] Work Phone: Comment on above: The validity of the calculated GFR & GFRAA in patients over 70 years has not been determined. Clinical correlation is essential. Serum or plasma urea nitroge n measurement (mass/volume)on 03-21-2022 Urea nitrogen [Mass/Vol] 13 mg/dL 7-18 [facility] Work Phone: Thin prep Papanicolaou smear with manual screeningon 03-21-2022 Thin prep Papanicolaou smear with manual screening 7 5-15 [facility] Work Phone: [phone] Absolute lymphocyte counton 03-13-2022 Lymphocytes Auto (Unsp spec) [#/Vol] 1.53 10*3/uL 0.83-4.51 [facility] Work Phone: Basophil percentageon 2021 Basophils/100 WBC (Bld) 0.3 % 0-1 [facility] Work Phone: Bilirubin [Mass/Vol] 0.40 mg/dL 0.20-1.00 [facility] Work Phone: Comment on above: For patients on eltr ombopag therapy, use of Dimension [place] TBIL is not recommended. Chloride [Moles/Vol] 106 mmol/L 98-107 [facility] Work Phone: Eosinophils/100 WBC (Bld) 3.8 % 0-5 [facility] Work Phone: Glucose [Mass/Vol] 186 mg/dL 74-[address] [facility] Work Phone: Comment on above: Fasting Glucose resu lt greater than or equal to 126 mg/dL suggests DIABETES MELLITUS per A.D.A. criteria. Neutrophils (Bld) [#/Vol] 4.0 10*3/uL 2.0-7.7 [facility] Work Phone: Neutrophils/100 WBC (Bld) 64.1 % 47-70 [facility] Work Phone: Potassium [Moles/Vol] 3.4 mmol/L 3.5-5.1 [facility] Work Phone: Protein [Mass/Vol] 7.0 g/dL 6.4-8.[address] [facility] Work Phone: Sodium [Moles/Vol] 140 mmol/L 136-[address] [facility] Work Phone: WBC (Bld) [#/Vol] 6.3 10*3/uL 4.4-11.[address] [facility] Work Phone: Blood erythrocytes count (nu mber/volume)on 03-13-2022 RBC (Bld) [#/Vol] 4.30 10*6/uL 4.6-6.2 [facility] Work Phone: Blood hemoglobin measurement (mass/volume)on 03-13-2022 Hemoglobin (Bld) [Mass/Vol] 13.7 g/dL 13.0-16.5 [facility] Work Phone: Blood lymphocytes/100 leukoc yteson 03-13-2022 Lymphocytes/100 WBC (Bld) 24.5 % 19-41 [facility] Work Phone: [phone] Blood monocytes/100 leukocyt eson 03-13-2022 Monocytes/100 WBC (Bld) 7.0 % 0-10 [facility] Work Phone: [phone] Blood platelet mean volumeon 03-13-2022 Platelet mean volume (Bld) [Entitic vol] 9.9 fL 6.2-12.0 [facility] Work Phone: Determination of erythrocyte mean corpuscular volume (MCV)on 03-13-2022 MCV (RBC) [Entitic vol] 94.9 fL 80-94 [facility] Work Phone: Hematocrit Auto (Bld) [Volum e fraction]on 03-13-2022 Hematocrit (Bld) [Volume fraction] 40.8 % 40-54 [facility] Work Phone: Laboratory - Chemistry and C hemistry - challengeon 03-13-2022 ALP [Catalytic activity/Vol] 73 U/L 45-117 [facility] Work Phone: [phone] ALT [Catalytic activity/Vol] 36 U/L 16-61 [facility] Work Phone: [phone] CO2 [Moles/Vol] 27.0 mmol/L 21.0-32.0 [facility] Work Phone: [phone] Globulin (S) [Mass/Vol] 3.4 g/dL 2.2-4.2 [facility] Work Phone: Urea nitrogen/Creatinine [Mass ratio] 10.7 mg/mg 10-20 [facility] Work Phone: Laboratory - Hematology and Cell countson 03-13-2022 Erythrocyte distribution width (RBC) [Entitic vol] 43.6 fL 35.1-43.[address] [facility] Work Phone: [phone] Erythrocyte distribution width (RBC) [Ratio] 12.6 % 11.6-14.6 [facility] Work Phone: [phone] Immature granulocytes/100 WBC (Bld) 0.300 % 0.0-0.9 [facility] Work Phone: [phone] Comment on above: IG% - Immature Granu locytes (promyelocytes, myelocytes and metamyelocytes) > 1% indicates that a LEFT SHIFT is Present. MCH (RBC) [Entitic mass] 31.9 pg 27.0-32.0 [facility] Work Phone: [phone] Nucleated RBC/100 WBC (Bld) [Ratio] 0 % 0-5 [facility] Work Phone: [phone] MCHC Auto (RBC) [Mass/Vol]on 03-13-2022 MCHC (RBC) [Mass/Vol] 33.6 g/dL 32-36 [facility] Work Phone: [phone] Panel Informationon 03-13 Estimated GFR (MDRD) Amer 82 mL/min >60 [facility] Work Phone: [phone] Comment on above: GFR Calc Estimated GFR (MDRD) Non-Af Amer 68 mL/min >60 [facility] Work Phone: [phone] Comment on above: Non- GFR Calc Thyroid Stimulating Hormone (TSH) 3.34 uIU/mL 0.358-3.74 [facility] Work Phone: [phone] Vitamin D 25-Hydroxy 36.4 ng/mL [facility] Work Phone: [phone] Comment on above: Vitamin D 25(OH) Sta tus Range Deficiency <20 ng/mL (50nmol/L) Insufficiency 20 - 30 ng/mL (50 - 75 nmol/L) Sufficiency 30 - 100 ng/mL (75 - 250 nmol/L) Toxicity >100 ng/mL (>250 nmol/L) Platelets bldon 03-13-2022 Platelets (Bld) [#/Vol] 190 10*3/uL 150-450 [facility] Work Phone: Serum or plasma albumin aneudy urement (mass/volume)on 03-13-2022 Albumin [Mass/Vol] 3.6 g/dL 3.2-5.[address] [facility] Work Phone: Serum or plasma albumin/glob ulin mass ratioon 03-13-2022 Albumin/Globulin [Mass ratio] 1.1 {ratio} 0.9-2.4 [facility] Work Phone: Serum or plasma calcium aneudy urement (mass/volume)on 03-13-2022 Calcium [Mass/Vol] 8.5 mg/dL 8.5-10.[address] [facility] Work Phone: Serum or plasma creatinine m easurement (mass/volume)on 03-13-2022 Creatinine [Mass/Vol] 1.12 mg/dL 0.70-1.30 [facility] Work Phone: Comment on above: The validity of the calculated GFR & GFRAA in patients over 70 years has not been determined. Clinical correlation is essential. Serum or plasma urea nitroge n measurement (mass/volume)on 03-13-2022 Urea nitrogen [Mass/Vol] 12 mg/dL 7-18 [facility] Work Phone: Thin prep Papanicolaou smear with manual screeningon 03-13-2022 Thin prep Papanicolaou smear with manual screening 14 U/L 15-37 [facility] Work Phone: Thin prep Papanicolaou smear with manual screening 7 5-15 [facility] Work Phone: Whole blood hemoglobin A1c/t otal hemoglobin ratio (mass fraction)on 03-13-2022 HbA1c (Bld) [Mass fraction] 5.8 % 3.8-5.6 [facility] Work Phone: Comment on above: Normal < 5.7 % Predi abetic 5.7 - 6.4 % Diabetic >or= 6.5 % Please note range changes. CNNUR[facility] ---- ERROL RIVERA ([id number]) 1945 M [employer] Date Time Provider Department 01/11/21 MANFRED DOBBINS) COVDOMENICA During your visit today, we recorded the following information about you: Allergies As of Date: 01/11/2021 Noted Allergy Reaction SEASONAL ALLERGIES 12/26/2011 16 - Unknown Date Reviewed: 09/25/2016 Reviewed by: Angel Oliveros LPN - Fully Assessed Order(s):Gini SARS-COV-2 VACCINE 2D DOSE APPT [[id number]] Order #: [id number] Prescriptions as of 01/11/2021 Sig: ATORVASTATIN 80 MG TABLET ENALAPRIL MALEATE 10 MG TABLET LORATADINE 10 MG TABLET Take 10 mg by mouth once jennifer* BUDESONIDE-FORMOTER OL HFA 80 * Inhale 2 Puffs as instructed * * ASPIRIN 81 MG TABLET Take 81 mg by mouth. * MODAFINIL 200 MG TABLET Take 200 mg by mouth once danika* * ENALAPRIL MALEATE 5 MG TABLET Take 10 mg by mouth twice danika* * FOLIC ACID 1 MG TABLET Take 1 mg by mouth once daily. * OMEGA-3 FATTY ACIDS-VITAMIN E* Take 1 capsule by mouth. * RABTRWZE-HHPV-HUJOR G-HYALUR A* Take by mouth. * MULTIVITAMIN-MINERA LS-LUTEIN * Take 1 tablet by mouth once d* * OMEPRAZOLE 20 MG CAPSULE,VALENTINO* Take 20 mg by mouth once jennifer* * VITAMIN B-2 ORAL Take by mouth. * CILOSTAZOL 100 MG TABLET Take 100 mg by mouth twice da* * FLUTICASONE FUROATE 27.5 MCG/* Use 2 Sprays in each nostril * * BUDESONIDE-FORMOTER OL HFA 80 * Inhale 2 Puffs as instructed * * GABAPENTIN 300 MG CAPSULE Take 300 mg by mouth three ti* * ATORVASTATIN 40 MG TABLET Take 80 mg by mouth once jennifer* * VERAPAMIL ER (PM) 200 MG CAPS* Take by mouth daily at bedti* * AMITRIPTYLINE 25 MG TABLET Take 25 mg by mouth daily at * * ISOSORBIDE MONONITRATE ER 30 * Take 30 mg by mouth once jennifer* * METOPROLOL SUCCINATE ER 50 MG* Take 50 mg by mouth once jennifer* * NITROQUICK SUBLINGUAL Dissolve under the tongue. Problem List As Of Date 01/11/2021 Noted Resolved Screening for intestinal cancer [Z12.10] 12/26/2011 PAD (peripheral artery disease) [I73.9] 02/18/2013 Umbilical pain [R10.33] 09/25/2016 Encounter Status:[facility] Office Visit: [facility] 05-28-20 17 Documentation of current medications (procedure) Done Invalid Interpretation Code [facility] Work Phone: [phone] Fall risk assessment No Invalid Interpretation Code [facility] [employer] Work Phone: [phone] Protein mass conc Done [facility] [employer] Work Phone: [phone] Lab Report: Basic Metabolic Profile (BMP)on 11-29-2016 Anion gap 9 mmol/L Invalid Interpretation Code 5-15 [facility] [employer] Work Phone: [phone] Anion gap molar conc 9 mmol/L 5-15 [facility] [employer] Work Phone: [phone] BUN/Creatinine Ratio 17.5 RATIO Invalid Interpretation Code 10-20 [facility] [employer] Work Phone: [phone] Calcium 8.5 mg/dL Invalid Interpretation Code 8.5-10.1 [facility] [employer] Work Phone: [phone] Chloride 102 mmol/L Invalid Interpretation Code 98-107 [facility] [employer] Work Phone: [phone] CO2 28.0 mmol/L Invalid Interpretation Code 21.0-32.0 [facility] [employer] Work Phone: [phone] CO2 ppres (BldV) 28.0 mmol/L 21.0-32.0 [facility] [employer] Work Phone: [phone] Creatinine 1.03 mg/dL Invalid Interpretation Code 0.70-1.30 [facility] [employer] Work Phone: [phone] eGFR (non-black) 92 mL/min/{1.73_m2} Invalid Interpretation Code >60 [facility] Work Phone: [phone] eGFR (non-black) 76 mL/min/{1.73_m2} Invalid Interpretation Code >60 [facility] Work Phone: [phone] EST GFR - AA 92 mL/min >60 [facility] Work Phone: [phone] Glucose 100 mg/dL Invalid Interpretation Code 70-110 [facility] Work Phone: [phone] Glucose mass conc 100 mg/dL 70-110 [facility] Work Phone: [phone] Potassium 4.0 mmol/L Invalid Interpretation Code 3.5-5.1 [facility] Work Phone: [phone] Sodium 139 mmol/L Invalid Interpretation Code 136-145 [facility] Work Phone: [phone] Urea nitrogen 18 mg/dL Invalid Interpretation Code 7-18 [facility] Work Phone: [phone] Lab Report: Lipid Profileon 11-29-2016 Cholesterol 127 mg/dL Invalid Interpretation Code 200 [facility] Work Phone: [phone] HDL Cholesterol 41 mg/dL Invalid Interpretation Code [facility] Work Phone: [phone] LDL Cholesterol 59 mg/dL Invalid Interpretation Code 0-130 [facility] Work Phone: [phone] Triglyceride 136 mg/dL Invalid Interpretation Code [facility] Work Phone: [phone] very low density lipoproteins 27 mg/dL Invalid Interpretation Code 5-40 [facility] Work Phone: [phone] Lab Report: Liver Profileon 11-29-2016 Alanine aminotransferase (ALT) 31 U/L Invalid Interpretation Code 12-78 [facility] Work Phone: [phone] Albumin 3.8 g/dL Invalid Interpretation Code 3.4-5.0 [facility] Work Phone: [phone] Alkaline phosphatase (ALP) 66 U/L Invalid Interpretation Code 45-117 [facility] Work Phone: [phone] ALP enzyme act/vol (Bld) 66 U/L 45-117 [facility] Work Phone: [phone] Aspartate aminotransferase (AST) 15 U/L Invalid Interpretation Code 15-37 [facility] Work Phone: [phone] Bilirubin (direct) 0.11 mg/dL Invalid Interpretation Code 0.00-0.30 [facility] Work Phone: [phone] Bilirubin (total) 0.50 mg/dL Invalid Interpretation Code 0.20-1.00 [facility] Work Phone: [phone] Globulin 3.3 g/dL Invalid Interpretation Code 2.3-3.5 [facility] Work Phone: [phone] Globulin mass conc (S) 3.3 g/dL 2.3-3.5 [facility] Work Phone: [phone] Protein 7.1 g/dL Invalid Interpretation Code 6.4-8.2 [facility] Work Phone: [phone]) Lab Report: Thyroid Stim Hor stanley (TSH)on 11-29-2016 Thyroid stimulating hormone (TSH) 2.74 u[iU]/mL Invalid Interpretation Code 0.358-3.74 [facility] Work Phone: [phone] Replaced Document: CBC W/Dif f, Automatedon 11-29-2016 Basophils/100 leukocytes 0.4 % Invalid Interpretation Code 0-1 [facility] Work Phone: [phone] Basophils/100 WBC (Bld) 0.4 % 0-1 [facility] Work Phone: [phone] Eosinophils/100 leukocytes 5.1 % High 0-5 [facility] Work Phone: [phone] Eosinophils/100 WBC (Bld) 5.1 % High 0-5 [facility] Work Phone: [phone] Erythrocyte distribution width Ratio (RBC) 40.1 fL 35.1-43.9 [facility] Work Phone: [phone] Erythrocyte distribution width Ratio (RBC) 12.0 % 11.6-14.6 [facility] Work Phone: [phone] Erythrocytes (RBC) 4.59 10*6/uL Low 4.6-6.[address] [facility] Work Phone: Hematocrit (HCT) 42.7 % Invalid Interpretation Code 40-54 [facility] Work Phone: [phone] Hematocrit Volume Fraction (Bld) 42.7 % 40-54 [facility] Work [phone] Hemoglobin (HGB) 14.6 g/dL Invalid Interpretation Code 13.0-16.5 [facility] Work Phone: [phone] Immature granulocytes #/vol (Bld) 0.300 % 0.0-0.9 [facility] Work [phone] immature granulocytes, percentage of total cells, blood 0.300 % Invalid Interpretation Code 0.0-0.9 [facility] Work Phone: [phone] Lymphocytes 2.27 X10 3/UL Invalid Interpretation Code 0.83-4.51 [facility] Work Phone: [phone] Lymphocytes #/vol (Bld) 2.27 X10 3/UL 0.83-4.51 [facility] Work Phone: [phone] Lymphocytes/100 leukocytes 32.8 % Invalid Interpretation Code 19-41 [facility] Work Phone: [phone] Lymphocytes/100 WBC (Bld) 32.8 % 19-41 [facility] Work Phone: [phone] MCH 31.8 pg Invalid Interpretation Code 27.0-32.0 [facility] Work Phone: [phone] MCH Entitic mass (RBC) 31.8 pg 27.0-32.0 [facility] Work [phone] MCHC 34.2 G/GL Invalid Interpretation Code 32-36 [facility] Work Phone: [phone] MCHC mass conc (RBC) 34.2 G/GL 32-[address] [facility] Work Phone: [phone] MCV 93.0 fL Invalid Interpretation Code 80-94 [facility] Work Phone: [phone] MCV Entitic volume (RBC) 93.0 fL 80-94 [facility] Work Phone: [phone] Monocytes/100 leukocytes 7.9 % Invalid Interpretation Code 0-10 [facility] Work Phone: [phone] Monocytes/100 WBC (Bld) 7.9 % 0-10 [facility] Work Phone: [phone] neutrophil count, blood 3.7 X10 3/UL Invalid Interpretation Code 2.0-7.7 [facility] Work Phone: [phone] Neutrophils #/vol (Bld) 3.7 X10 3/UL 2.0-7.7 [facility] Work Phone: [phone] Neutrophils/100 leukocytes 53.5 % Invalid Interpretation Code 47-70 [facility] Work Phone: [phone] Neutrophils/100 WBC (Bld) 53.5 % 47-70 [facility] Work Phone: [phone] Platelet mean volume Entitic volume (Bld) 9.7 fL 6.2-12.0 [facility] Phone: [phone] Platelets 214 10*3/mm3 Invalid Interpretation Code 150-450 [facility] Work Phone: [phone] Platelets #/vol (Bld) 214 10*3/mm3 150-450 [facility] Work Phone: [phone] PMV by Larissa 9.7 fL Invalid Interpretation Code 6.2-12.0 [facility] Phone: [phone] RBC #/vol (Bld) 4.59 10*6/uL Low 4.6-6.2 [facility] Work Phone: [phone] RDW-CA 12.0 % Invalid Interpretation Code 11.6-14.6 [facility] Work Phone: [phone] red blood cell distribution width, size density 40.1 fL Invalid Interpretation Code 35.1-43.9 [facility] Phone: [phone] WBC #/vol (Bld) 6.9 10*3/uL 4.4-11.0 [facility] Work Phone: [phone] WBC (Leukocytes) 6.9 10*3/uL Invalid Interpretation Code 4.4-11.0 [facility] Phone: [phone] Office Visiton 11-28-2016 Documentation of current medications (procedure) Done Invalid Interpretation Code [facility] Work Phone: Replaced Document: Charles Carrillo CG Observationson 11-28-2016 EKG QRS axis 27 deg [facility] Work Phone: electrocardiogram interpretation Sinus Tachycardia WITHIN NORMAL LIMITS Invalid Interpretation Code [facility] Phone: GE use only - for [employer] import when terms are not otherwise specified 418 ms Invalid Interpretation Code [facility] Work Phone: Interpretation Sinus Tachycardia WITHIN NORMAL LIMITS [facility] Work Phone: P Lorton 34 deg [facility] Work Phone: [phone] P wave axis, electrocardiogram 34 deg Invalid Interpretation Code [facility] Phone: MO Interval 164 ms [facility] Work Phone: MO interval, electrocardiogram 164 ms Invalid Interpretation Code [facility] Phone: Pulse (Heart Rate) 106 /min Invalid Interpretation Code [facility] Work Phone: QRS axis, electrocardiogram 27 deg Invalid Interpretation Code [facility] Phone: [phone] QRS Duration 110 ms [facility] Work Phone: [phone] QRS duration, electrocardiogram 110 ms Invalid Interpretation Code [facility] Phone: QT Interval new path ms [facility] Work Phone: QT interval, electrocardiogram new path ms Invalid Interpretation Code [facility] Work Phone: QTc Goldstein 418 ms [facility] Work Phone: T Lorton -1 deg [facility] Work Phone: T wave axis, electrocardiogram -1 deg Invalid Interpretation Code [facility] Phone: Clinical Lists Update: [employer] lead 11-27-2016 Left ventricular Ejection fraction 60 % Invalid Interpretation Code [facility] Phone: Office Visit: [facility] 05-21-20 Dietary management education, guidance, and counseling (procedure) yes Invalid Interpretation Code [facility] Work Phone: Office Visiton 11-10-2015 Tobacco smoking status MTIS Former smoker [facility] Work Phone: [phone] Tobacco use [facility] Former smoker Invalid Interpretation Code [facility] Work Phone: [phone] Office Visit: [facility] 02-15-20 15 cardiac risk group C Invalid Interpretation Code [employer] Phone: [phone] General cardiovascular disease 10Y risk [#] [place]D'[place]ost[place] N/A Invalid Interpretation Code [facility] Work Phone: [phone] Tobacco smoking status MTIS Never Invalid Interpretation Code [facility] Work Phone: [phone] Lab Report: CBCDon 4 Absolute Neutrophil count 3.1 X10 3/UL Normal 2.0-7.7 [facility] Work Phone: [phone] ANC 3.1 X10 3/UL Normal 2.0-7.7 [facility] Work Phone: [phone] [facility] Albumin/Globulin Ratio 1.3 {ratio} Normal 0.9-2.4 [facility] Work Phone: [phone] Replaced Document: Charles Carrillo CG Observationson 01-18-2014 Pulse (Heart Rate) 406 ms Invalid Interpretation Code [facility] Work Phone: [phone] Lab Reporton 06-14-2013 Cholesterol to HDL Ratio 4.1 {ratio} Invalid Interpretation Code [facility] Phone: [phone] Lab Reporton 12-13-2011 basophils as percent of blood leukocytes, manual count 0.6 % Invalid Interpretation Code [facility] Work Phone: [phone] eosinophils as percent of blood leukocytes, manual count 3.6 % Invalid Interpretation Code [facility] [employer] Work Phone: [phone] neutrophils, band form as percent of blood leukocytes, manual count 53.0 % Invalid Interpretation Code [facility] Work Phone: [phone] Vital Signs Date Time Vital Sign Value Performing Clinician Evette domínguez 01-27-2025 10:11-0400 Body height 177.[address] Teo Lamb MD Work Phone: [phone] [place] [address] 01-27-2025 10:06-0400 Body mass index (BMI) [Ratio] 29.8 kg/m2 Dr. Teo Lamb MD Work Phone: [phone] [place] [address] 01-27-2025 10:06-0400 Body weight 94.[address] Teo Lamb MD Work Phone: [phone] [place] [address] 01-27-2025 10:06-0400 Diastolic blood pressure 74 mm[Hg] Dr. Teo Lamb MD Work Phone: [phone] [place] [address] 01-27-2025 10:06-0400 Heart rate 96 /min Dr. Teo Lamb MD Work Phone: [phone] [place] [address] 01-27-2025 10:06-0400 Respiratory rate 18 /min Dr. Teo Lamb MD Work Phone: [phone] [place] [address] 01-27-2025 10:06-0400 SaO2% (BldA) [Mass fraction] 95 % Dr. Teo Lamb MD Work Phone: [phone] [place] [address] 01-27-2025 10:06-0400 Systolic blood pressure 125 mm[Hg] Dr. Teo Lamb MD Work Phone: [phone] [place] [address] 12-02-2023 08:31-0500 Body temperature 97.2 [degF] Dr. Teo Lamb Work Phone: [phone] [place] [address] 12-02-2023 08:31-0500 Body weight 100.[address] Teo Lamb Work Phone: [phone] [place] [address] 12-02-2023 08:31-0500 Diastolic blood pressure 75 mm[Hg] Dr. Teo Lamb Work Phone: [phone] [place] [address] 12-02-2023 08:31-0500 Heart rate 88 /min Dr. Teo Lamb Work Phone: 9(611)292-633124 [place] [address] 12-02-2023 08:31-0500 Respiratory rate 14 /min Dr. Teo Lamb Work Phone: 5(992)350-955824 [place] [address] 12-02-2023 08:31-0500 SaO2% (BldA) [Mass fraction] 98 % Dr. Teo Lamb Work Phone: [facility] 12-02-2023 08:31-0500 Systolic blood pressure 140 mm[Hg] Dr. Teo Lamb Work Phone: [facility] 11-18-2023 08:22-0500 Body height 177.[address] Teo Lamb Work Phone: 7(010)473-712630 [address] 11-18-2023 08:22-0500 Body mass index (BMI) [Ratio] 30.7 kg/m2 Dr. Teo Lamb Work Phone: 8(392)258-745830 [address] 11-18-2023 08:22-0500 Body temperature 97.6 [degF] Dr. Teo Lamb Work Phone: 0(475)213-556230 [address] 11-18-2023 08:22-0500 Body weight 97.[address] Teo Lamb Work Phone: 0(568)514-783930 [address] 11-18-2023 08:22-0500 Diastolic blood pressure 90 mm[Hg] Dr. Teo Lamb Work Phone: 0(536)270-414730 [address] 11-18-2023 08:22-0500 Heart rate 117 /min Dr. Teo Lamb Work Phone: 4(465)890-108927 [place] [address] 11-18-2023 08:22-0500 Respiratory rate 18 /min Dr. Teo Lamb Work Phone: 5(220)777-804827 [place] [address] 11-18-2023 08:22-0500 SaO2% (BldA) [Mass fraction] 95 % Dr. Teo Lamb Work Phone: [facility] 11-18-2023 08:22-0500 Systolic blood pressure 143 mm[Hg] Dr. Teo Lamb Work Phone: 6(823)468-551930 [address] 10-10-2023 10:02-0500 Body temperature 98.9 [degF] Dr. Teo Lamb Work Phone: 0(227)582-815727 [place] [address] 10-10-2023 10:02-0500 Diastolic blood pressure 82 mm[Hg] Dr. Teo Lamb Work Phone: [facility] 10-10-2023 10:02-0500 Heart rate 96 /min Dr. Teo Lamb Work Phone: 8(018)717-320727 [place] [address] 10-10-2023 10:02-0500 Respiratory rate 15 /min Dr. Teo Lamb Work Phone: 0(849)440-617524 [place] [address] 10-10-2023 10:02-0500 SaO2% (BldA) [Mass fraction] 96 % Dr. Teo Lamb Work Phone: 8(748)757-963527 [place] [address] 10-10-2023 10:02-0500 Systolic blood pressure 160 mm[Hg] Dr. Teo Lamb Work Phone: 0(890)817-049524 [place] [address] 08-14-2023 08:25-0400 Body height 177.[address] Teo Lamb Work Phone: 7(214)966-495324 [place] [address] 08-14-2023 08:25-0400 Body mass index (BMI) [Ratio] 31.7 kg/m2 Dr. Teo Lamb Work Phone: 4(290)414-696424 [place] [address] 08-14-2023 08:25-0400 Body temperature 97.8 [degF] Dr. Teo Lamb Work Phone: 0(033)935-185324 [place] [address] 08-14-2023 08:25-0400 Body weight 100.[address] Teo Lamb Work Phone: 6(326)857-850924 [place] [address] 08-14-2023 08:25-0400 Diastolic blood pressure 79 mm[Hg] Dr. Teo Lamb Work Phone: 4(183)270-179224 [place] [address] 08-14-2023 08:25-0400 Heart rate 102 /min Dr. Teo Lamb Work Phone: 2(264)492-830924 [place] [address] 08-14-2023 08:25-0400 Respiratory rate 17 /min Dr. Teo Lamb Work Phone: 0(011)983-352024 [place] [address] 08-14-2023 08:25-0400 SaO2% (BldA) [Mass fraction] 96 % Dr. Teo Lamb Work Phone: 9(350)606-194824 [place] [address] 08-14-2023 08:25-0400 Systolic blood pressure 154 mm[Hg] Dr. Teo Lamb Work Phone: [facility] 06-27-2023 08:17-0400 Body mass index (BMI) [Ratio] 31 kg/m2 Dr. Teo Lamb Work Phone: [facility] 06-27-2023 08:17-0400 Body temperature 97.4 [degF] Dr. Teo Lamb Work Phone: 4(179)357-543330 [address] 06-27-2023 08:17-0400 Body weight 98.[address] Teo Lamb Work Phone: 7(099)485-533624 [place] [address] 06-27-2023 08:17-0400 Diastolic blood pressure 67 mm[Hg] Dr. Teo Lamb Work Phone: 6(337)790-234130 [address] 06-27-2023 08:17-0400 Heart rate 74 /min Dr. Teo Lamb Work Phone: 0(901)492-409330 [address] 06-27-2023 08:17-0400 Respiratory rate 17 /min Dr. Teo Lamb Work Phone: 7(385)226-883530 [address] 06-27-2023 08:17-0400 SaO2% (BldA) [Mass fraction] 95 % Dr. Teo Lamb Work Phone: 7(595)470-617427 [place] [address] 06-27-2023 08:17-0400 Systolic blood pressure 114 mm[Hg] Dr. Teo Lamb Work Phone: 8(615)637-336530 [address] 06-02-2023 08:38-0400 Body mass index (BMI) [Ratio] 31.4 kg/m2 Dr. Teo Lamb Work Phone: 8(214)342-365930 [address] 06-02-2023 08:38-0400 Body temperature 98.7 [degF] Dr. Teo Lamb Work Phone: 3(056)523-422127 [place] [address] 06-02-2023 08:38-0400 Body weight 99.[address] Teo Lamb Work Phone: 3(309)187-987824 [place] [address] 06-02-2023 08:38-0400 Diastolic blood pressure 56 mm[Hg] Dr. Teo Lamb Work Phone: [facility] 06-02-2023 08:38-0400 Heart rate 96 /min Dr. Teo Lamb Work Phone: [facility] 06-02-2023 08:38-0400 Respiratory rate 17 /min Dr. Teo Lamb Work Phone: 2(009)674-489630 [address] 06-02-2023 08:38-0400 SaO2% (BldA) [Mass fraction] 95 % Dr. Teo Lamb Work Phone: 2(296)723-807927 [place] [address] 06-02-2023 08:38-0400 Systolic blood pressure 120 mm[Hg] Dr. Teo Lamb Work Phone: 2(885)453-729624 [place] [address] 01-14-2023 07:50-0400 Body height 177.[address] Teo Lamb Work Phone: 4(756)116-922324 [place] [address] 01-14-2023 07:50-0400 Body mass index (BMI) [Ratio] 31.5 kg/m2 Dr. Teo Lamb Work Phone: 6(232)982-544824 [place] [address] 01-14-2023 07:50-0400 Body temperature 97.2 [degF] Dr. Teo Lamb Work Phone: 3(950)559-971924 [place] [address] 01-14-2023 07:50-0400 Body weight 99.[address] Teo Lamb Work Phone: 5(812)006-042727 [place] [address] 01-14-2023 07:50-0400 Diastolic blood pressure 79 mm[Hg] Dr. Teo Lamb Work Phone: 2(521)699-179427 [place] [address] 01-14-2023 07:50-0400 Heart rate 98 /min Dr. Teo Lamb Work Phone: 7(391)126-564627 [place] [address] 01-14-2023 07:50-0400 Respiratory rate 18 /min Dr. Teo Lamb Work Phone: [facility] 01-14-2023 07:50-0400 SaO2% (BldA) [Mass fraction] 98 % Dr. Teo Lamb Work Phone: [facility] 01-14-2023 07:50-0400 Systolic blood pressure 171 mm[Hg] Dr. Teo Lamb Work Phone: [facility] 12-02-2022 13:40-0500 Body height 177.[address] Teo Lamb Work Phone: [facility] 12-02-2022 13:40-0500 Body mass index (BMI) [Ratio] 31.5 kg/m2 Dr. Teo Lamb Work Phone: [facility] 12-02-2022 13:40-0500 Body temperature 98.7 [degF] Dr. Teo Lamb Work Phone: 8(562)622-392727 [place] [address] 12-02-2022 13:40-0500 Body weight 99.[address] Teo Lamb Work Phone: 6(269)550-589730 [address] 12-02-2022 13:40-0500 Diastolic blood pressure 82 mm[Hg] Dr. Toe Lamb Work Phone: 7(387)384-760930 [address] 12-02-2022 13:40-0500 Heart rate 100 /min Dr. Teo Lamb Work Phone: 7(929)194-443427 [place] [address] 12-02-2022 13:40-0500 Respiratory rate 16 /min Dr. Teo Lamb Work Phone: 4(611)760-274727 [place] [address] 12-02-2022 13:40-0500 SaO2% (BldA) [Mass fraction] 95 % Dr. Teo Lmab Work Phone: [facility] 12-02-2022 13:40-0500 Systolic blood pressure 142 mm[Hg] Dr. Teo Lamb Work Phone: [facility] 11-29-2022 09:08-0500 Body mass index (BMI) [Ratio] 31.4 kg/m2 Dr. Teo Lamb Work Phone: 3(061)660-080527 [place] [address] 11-29-2022 09:08-0500 Body weight 99.[address] Teo Lamb Work Phone: 8(471)524-446827 [place] [address] 11-29-2022 09:08-0500 Diastolic blood pressure 77 mm[Hg] Dr. Teo Lamb Work Phone: [facility] 11-29-2022 09:08-0500 Heart rate 94 /min Dr. Teo Lamb Work Phone: [facility] 11-29-2022 09:08-0500 Respiratory rate 18 /min Dr. Teo Lamb Work Phone: [facility] 11-29-2022 09:08-0500 SaO2% (BldA) [Mass fraction] 96 % Dr. Teo Lamb Work Phone: [facility] 11-29-2022 09:08-0500 Systolic blood pressure 172 mm[Hg] Dr. Teo Lamb Work Phone: [facility] 06-04-2022 09:33-0400 Diastolic blood pressure 84 mm[Hg] Dr. Teo Lamb Work Phone: [facility] Work Phone: 06-04-2022 09:33-0400 Systolic blood pressure 147 mm[Hg] Dr. Teo Lamb Work Phone: [facility] Work Phone: 06-04-2022 08:55-0400 Body height 177.[address] Teo Lamb Work Phone: [facility] Work Phone: 06-04-2022 08:55-0400 Body mass index (BMI) [Ratio] 32.8 kg/m2 Dr. Teo Lamb Work Phone: [facility] Work Phone: 06-04-2022 08:55-0400 Body weight 103.[address] Teo Lamb Work Phone: [facility] Work Phone: 06-04-2022 08:55-0400 Heart rate 98 /min Dr. Teo Lamb Work Phone: [facility] Work Phone: 06-04-2022 08:55-0400 Respiratory rate 16 /min Dr. Teo Labm Work Phone: [facility] Work Phone: 06-04-2022 08:55-0400 SaO2% (BldA) [Mass fraction] 94 % Dr. Teo Lamb Work Phone: [facility] Work Phone: 03-04-2022 10:21-0400 Body mass index (BMI) [Ratio] 33 kg/m2 Dr. Teo Lamb Work Phone: [facility] Work Phone: 03-04-2022 10:21-0400 Body weight 104.[address] Teo Lamb Work Phone: [facility] Work Phone: 03-04-2022 10:21-0400 Diastolic blood pressure 80 mm[Hg] Dr. Teo Lamb Work Phone: [facility] Work Phone: 03-04-2022 10:21-0400 Heart rate 86 /min Dr. Teo Lamb Work Phone: [facility] Work Phone: 03-04-2022 10:21-0400 Respiratory rate 16 /min Dr. Teo Lamb Work Phone: [facility] Work Phone: 03-04-2022 10:21-0400 SaO2% (BldA) [Mass fraction] 96 % Dr. Teo Lamb Work Phone: [facility] Work Phone: 03-04-2022 10:21-0400 Systolic blood pressure 140 mm[Hg] Dr. Teo Lamb Work Phone: [facility] Work Phone: 03-04-2022 10:21-0400 Body height 177.[address] Teo Lamb Work Phone: [facility] Work Phone: 03-04-2022 10:21-0400 Body mass index (BMI) [Ratio] 33 kg/m2 Dr. Teo Lamb Work Phone: [facility] Work Phone: 03-04-2022 10:21-0400 Body weight 104.[address] Teo Lamb Work Phone: [facility] Work Phone: 03-04-2022 10:21-0400 Diastolic blood pressure 80 mm[Hg] Dr. Teo Lamb Work Phone: [facility] Work Phone: 03-04-2022 10:21-0400 Heart rate 86 /min Dr. Teo Lamb Work Phone: [facility] Work Phone: 03-04-2022 10:21-0400 Respiratory rate 16 /min Dr. Teo Lamb Work Phone: [facility] Work Phone: 03-04-2022 10:21-0400 SaO2% (BldA) [Mass fraction] 96 % Dr. Teo Lamb Work Phone: [facility] Work Phone: 03-04-2022 10:21-0400 Systolic blood pressure 140 mm[Hg] Dr. Teo Lamb Work Phone: [facility] Work Phone: 05-28-2017 14:00-0400 BMI (Body Mass Index) 32.71 kg/m2 [facility] Work Phone: 05-28-2017 14:00-0400 BP Diastolic 70 mm[Hg] Erica Ramos [facility] Work Phone: 05-28-2017 14:00-0400 BP Systolic 130 mm[Hg] Erica Ramos [facility] Work Phone: 05-28-2017 14:00-0400 Height 177.8 cm Erica Ramos [facility] Work Phone: 05-28-2017 14:00-0400 Pulse (Heart Rate) 80 /min Erica Ramos [facility] Work Phone: 05-28-2017 14:00-0400 Respiratory Rate 20 /min Erica Ramos [facility] Work Phone: 05-28-2017 14:00-0400 Weight 103.42 kg Erica Ramos [facility] Work Phone: 11-28-2016 11:44-0500 Heart rate 106 /min Erica Ramos [facility] Work Phone: 11-28-2016 11:32-0500 BMI (Body Mass Index) 33.28 kg/m2 Harumi DeFinis [facility] Work Phone: 11-28-2016 11:32-0500 BP Diastolic 60 mm[Hg] Harumi DeFinis [facility] Work Phone: 11-28-2016 11:32-0500 BP Systolic 100 mm[Hg] Harumi DeFinis [facility] Work Phone: 11-28-2016 11:32-0500 BSA (Body Surface Area) 2.23 m2 Harumi DeFinis [facility] Work Phone: 11-28-2016 11:32-0500 Pulse (Heart Rate) 112 /min Harumi DeFinis [facility] Work Phone: 11-28-2016 11:32-0500 Respiratory Rate 20 /min Harumi DeFinis [facility] Work Phone: 11-28-2016 11:32-0500 Weight 105.24 kg Harumi DeFinis [facility] Work Phone: 01-18-2014 08:36-0400 Heart rate 406 ms Erica Ramos [facility] Work Phone: 03-31-2012 16:44-0400 Height 177.8 cm Harumi DeFinis [facility] Work Phone: Encounters Encounter Date Encounter Type Care Provider Facility Start: 06-01-2025 ambulatory [facility] Facility:[facility] Start: 05-30-2025 ambulatory [facility] Facility:[facility] Start: 05-09-2025 End: 05-09-[address] Teo Lamb MD Work Phone: -Laboratory Phy Office 3rd Flr Start: 05-09-2025 End: 05-09-[address] Teo Lamb MD -Laboratory Phy Office 3rd Flr Start: 05-09-2025 End: 05-09-2025 ambulatory [facility] Facility:[facility] Start: 03-30-2025 End: 03-30-[address] Teo Lamb MD Work Phone: [facility] Work Phone: Start: 03-30-2025 End: 03-30-[address] Teo Lamb MD -Laboratory Work Phone: Start: 03-30-2025 End: 03-30-2025 ambulatory [facility] Facility:[facility] Start: 01-27-2025 End: 01-27-2025 Patient encounter procedure Lois Doll [employer]- -[facility] Work Phone: Start: 01-27-2025 End: 01-27-2025 ambulatory Lois Doll Facility:[facility] Start: 10-11-2024 End: 10-11-[facility] Start: 08-17-2024 End: 08-17-2024 ambulatory Hank Ray Facility:[facility] Start: 07-05-2024 End: 07-05-2024 ambulatory Jada Atkins NP Facility:[facility] Start: 12-25-2023 End: 12-25-[address] Teo Lamb Work Phone: [facility] Work Phone: Start: 12-25-2023 End: 12-25-[address] Teo Lamb Work Phone: [facility]-Pulmonary Services/Neurology Work Phone: Start: 12-02-2023 End: 12-02-[address] Teo Lamb Work Phone: [facility] Work Phone: Start: 12-02-2023 End: 12-02-[address] Teo Lamb Work Phone: [facility] Work Phone: Start: 11-18-2023 End: 11-18-[address] [facility] Work Phone: Start: 10-22-2023 End: 10-22-[address] eTo Lamb Work Phone: [facility] Work Phone: Start: 10-22-2023 End: 10-22-[address] [facility] Start: 10-10-2023 End: 10-10-[address] Teo Lamb Work Phone: [facility] Work Phone: Start: 09-10-2023 End: 09-10-[address] Teo Lamb Work Phone: [facility] Work Phone: Start: 09-10-2023 End: 09-10-[address] Teo Lamb Work Phone: [facility]-Laboratory, Phy Office [address] [place] [address] Start: 08-14-2023 End: 08-14-[address] [facility] Lamb [facility] Work Phone: Start: 06-27-2023 End: 06-27-[address] Teo Lamb Work Phone: [facility] Work Phone: Start: 06-02-2023 End: 06-02-[address] Teo Lamb Work Phone: [facility] Work Phone: Start: 03-13-2023 End: 03-13-[address] Teo Lamb Work Phone: [facility] Work Phone: Start: 03-13-2023 End: 03-13-[address] Teo Lamb Work Phone: [facility]-Laboratory, Phy Office 3rd Ksr Start: 02-17-2023 End: 02-17-[address] Teo Lamb Work Phone: [facility] Work Phone: Start: 02-17-2023 End: 02-17-[address] Teo Lamb Work Phone: [facility]-Sleep Lab Start: 01-14-2023 End: 01-14-[address] Teo Lamb Work Phone: [facility]-Pulmonary Medicine [facility] Start: 12-03-2022 Non-patient / Non-visit Dr. Baudilio Lamb Work Phone: [facility] Start: 12-03-2022 End: 12-03-[address] Teo Lamb Work Phone: [facility] Work Phone: Start: 12-03-2022 End: 12-03-[address] Teo Lamb Work Phone: [facility]-Cardiovascular Services Start: 12-02-2022 End: 12-02-[address] Teo Lamb Work Phone: [facility] Start: 11-29-2022 End: 11-29-[address] Teo Lamb Work Phone: [facility] Start: 09-05-2022 End: 09-05-[address] [facility] Start: 08-20-2022 End: 08-20-[address] Teo Lamb Work Phone: [facility]-Pulmonary Services/Neurology Start: 06-28-2022 Non-patient / Non-visit Dr. Baudilio Lamb Work Phone: [facility] Start: 06-28-2022 End: 06-28-[address] Teo Lamb Work Phone: [facility] Work Phone: Start: 06-28-2022 End: 06-28-[address] [facility] Start: 06-04-2022 End: 06-04-[address] Teo Lamb Work Phone: [facility] Start: 03-21-2022 End: 03-21-[address] [facility] Start: 03-13-2022 End: 03-13-[address] [facility] Start: 03-04-2022 End: 03-04-[address] Teo Lamb Work Phone: [facility] Neu[facility] Procedures Date Procedure Procedure Detail Performing Clinician Start: 05-09-2025 SARS-CoV-2, Influenz a & RSV (PCR) Dr. Teo Lamb MD Work Phone: Start: 03-30-2025 Vitamin D, 25-hydrox y measurement Dr. Teo Lamb MD Work Phone: Comment on above: Vitamin D StatusDefi ciency: <20 ng/mL (50nmol/L)Insufficiency: 20-30 ng/mL (50-75 nmol/L)Sufficiency: 30-100 ng/mL (75-250 nmol/L)Toxicity: >100 ng/mL (>250 nmol/L) Start: 12-25-2023 SARS-CoV-2, Influenz a & RSV (PCR) Dr. Teo Lamb Work Phone: Start: 10-22-2023 Basophil percent differential count Dr. Teo Lamb Work Phone: Start: 10-22-2023 Coronavirus COVID-[address] Teo Lamb Work Phone: Start: 10-22-2023 Influenza Types A,B Direct FA (DEVON) Dr. Teo Lamb Work Phone: Start: 09-10-2023 Diagnostic radiograp hy of abdomen Dr. Teo Lamb Work Phone: Start: 06-28-2022 Radionuclide imaging of perfusion of myocardium under exercise stress Dr. Teo Lamb Work Phone: Start: 05-28-2017 End: 05-28-2017 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 Naz Scanlon PA-C Work Phone: Start: 05-28-2017 [...] [AGGREGATE] Louie Villegas Start: 11-28-2016 End: 11-28-2016 WEST Ashby MD Start: 11-28-2016 End: 11-29-2016 Thyroid stimulating hormone (TSH) Costa Ashby MD Start: 05-21-2016 End: 05-21-2016 Dietary management education, guidance, and counseling Erica Ramos Start: 05-21-2016 End: 05-21-2016 GILA Scanlon PA-C Work Phone: Start: 05-21-2016 End: [...] [AGGREGATE] Louie Villegas Start: 11-10-2015 End: 11-10-2015 WEST Ashby MD Start: 02-14-2015 End: 02-14-2015 GILA Scanlon PA-C Work Phone: Start: 02-14-2015 End: 02-14-2015 Electrocardiogram, complete Naz Scanlon PA-C Work Phone: Start: 02-14-2015 [...] months Louie Villegas Start: 08-11-2014 End: 08-11-2014 WEST Ashby MD Start: 01-18-2014 End: 01-18-2014 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 Naz Scanlon PA-C Work Phone: Start: 01-18-2014 End: 01-18-2014 Electrocardiogram, torito Scanlon PA-C Work Phone: Start: 01-18-2014 End: 02-07-2015 Follow Up Appt 6 months Naz valenzuela PA-C Work Phone: Start: 01-18-2014 End: 01-18-2014 Follow Up Appt Other Naz rodriges PA-C Work Phone: Start: 07-20-2013 End: 07-20-2013 Follow Up Appt 6 months Louie Villegas Start: 07-20-2013 End: 07-20-2013 WEST Ashby MD Start: 01-06-2013 End: 01-10-2014 Arterial exam oCsta Ashby MD Start: 01-06-2013 End: 01-06-2013 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 Costa Ashby MD Start: 01-06-2013 End: 01-06-2013 Follow Up Appt 6 months Louie Villegas Start: 09-19-2012 End: 01-06-2013 *Hepatic Function Panel Louie Villegas Start: 09-19-2012 End: 01-06-2013 Lipid panel [AGGREGATE] Louie Villegas Start: 03-31-2012 End: 04-21-2012 *Hepatic Function Panel Louie Villegas Start: 03-31-2012 End: 03-31-2012 Follow Up Appt 6 months Louie Villegas Start: 03-31-2012 End: 04-21-2012 Lipid panel [AGGREGATE] Louie Villegas Influenza Types A,B Direct FA (DEVON) Dr. Teo Lamb Work Phone: Respiratory syncytia l virus antigen assay Dr. Teo Lamb Work Phone: Plan of Treatment Date Care Activity Detail Author Start: 12-02-2022 Patient referral [facility] Work Phone: Start: 12-04-2017 End: 12-04-2017 Appointment Appointment [facility] Work Phone: Start: 05-29-2017 End: 12-04-2016 *Hepatic Function Panel *Hepatic Function Panel [facility] Work Phone: Start: 05-29-2017 End: 12-04-2016 Lipid panel [AGGREGATE] *Lipid Profile CC PCP [facility] Work Phone: Start: 05-28-2017 End: 05-28-2017 Appointment Appointment [facility] Work Phone: Start: 05-28-2017 End: 05-28-2017 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 [facility] Work Phone: Start: 05-28-2017 End: 05-28-2017 Follow Up Appt 6 months Follow Up Appt 6 months [facility] Work Phone: Start: 05-28-2017 End: 05-28-2017 Nuclear stress test -exercise Nuclear stress test -exercise [facility] Work Phone: Start: 11-28-2016 End: 11-29-2016 *BMP *BMP [facility] Work Phone: Start: 11-28-2016 End: 11-29-2016 *CBC with Differential *CBC with Differential [facility] Work Phone: Start: 11-28-2016 End: 11-29-2016 *Hepatic Function Panel *Hepatic Function Panel [facility] Work Phone: Start: 11-28-2016 End: 05-20-2017 Electrocardiogram, complete EKG (In office) [facility] Work Phone: Start: 11-28-2016 End: 11-28-2016 Follow Up Appt 6 months Follow Up Appt 6 months [facility] Work Phone: Start: 11-28-2016 End: 11-29-2016 Lipid panel [AGGREGATE] *Lipid Profile CC PCP [facility] Work Phone: Start: 11-28-2016 End: 11-28-2016 MMM MMM [facility] Work Phone: Start: 11-28-2016 End: 11-29-2016 Thyroid stimulating hormone (TSH) *TSH [facility] Work Phone: Start: 05-21-2016 End: 05-21-2016 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 [facility] Work Phone: Start: 05-21-2016 End: 05-21-2016 Follow Up Appt 6 months Follow Up Appt 6 months [facility] Work Phone: Start: 05-21-2016 End: 05-21-2016 Follow Up Appt Other Follow Up Appt Other [facility] Work Phone: Start: 11-10-2015 End: 05-20-2017 *Hepatic Function Panel *Hepatic Function Panel [facility] Work Phone: Start: 11-10-2015 End: 11-10-2015 Follow Up Appt 6 months Follow Up Appt 6 months [facility] Work Phone: Start: 11-10-2015 End: 05-22-2016 Lipid panel [AGGREGATE] *Lipid Profile CC PCP [facility] Work Phone: Start: 11-10-2015 End: 11-10-2015 MMM MMM [facility] Work Phone: Start: 02-14-2015 End: 02-14-2015 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 [facility] Work Phone: Start: 02-14-2015 End: 02-14-2015 Electrocardiogram, complete EKG (In office) [facility] Work Phone: Start: 02-14-2015 End: 02-14-2015 Follow Up Appt 6 months Follow Up Appt 6 months [facility] Work Phone: Start: 02-14-2015 End: 05-15-2016 Follow Up Appt Other Follow Up Appt Other [facility] Work Phone: Start: 12-19-2014 End: 05-15-2016 *Hepatic Function Panel *Hepatic Function Panel [facility] Work Phone: Start: 12-19-2014 End: 05-15-2016 Lipid panel [AGGREGATE] *Lipid Profile CC PCP [facility] Work Phone: Start: 08-11-2014 End: 08-11-2014 Follow Up Appt 6 months Follow Up Appt 6 months [facility] Work Phone: Start: 08-11-2014 End: 08-11-2014 MMM MMM [facility] Work Phone: Start: 01-18-2014 End: 01-18-2014 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 [facility] Work Phone: Start: 01-18-2014 End: 01-18-2014 Electrocardiogram, complete EKG (In office) [facility] Work Phone: Start: 01-18-2014 End: 02-07-2015 Follow Up Appt 6 months Follow Up Appt 6 months [facility] Work Phone: Start: 01-18-2014 End: 01-18-2014 Follow Up Appt Other Follow Up Appt Other [facility] Work Phone: Start: 07-20-2013 End: 07-20-2013 Follow Up Appt 6 months Follow Up Appt 6 months [facility] Work Phone: Start: 07-20-2013 End: 07-20-2013 MMM MMM [facility] Work Phone: Start: 01-06-2013 End: 01-06-2013 Arterial exam Arterial exam [facility] Work Phone: Start: 01-06-2013 End: 01-06-2013 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 [facility] Work Phone: Start: 01-06-2013 End: 01-06-2013 Follow Up Appt 6 months Follow Up Appt 6 months [facility] Work Phone: Start: 09-19-2012 End: 01-06-2013 *Hepatic Function Panel *Hepatic Function Panel [facility] Work Phone: Start: 09-19-2012 End: 01-06-2013 Lipid panel [AGGREGATE] *Lipid Profile [facility] Work Phone: Start: 03-31-2012 End: 04-21-2012 *Hepatic Function Panel *Hepatic Function Panel [facility] Work Phone: Start: 03-31-2012 End: 03-31-2012 Follow Up Appt 6 months Follow Up Appt 6 months [facility] Work Phone: Start: 03-31-2012 End: 04-21-2012 Lipid panel [AGGREGATE] *Lipid Profile [facility] Work Phone: Continuous pulse oximetry [facility] Hepatic function panel [facility] Lipid 1996 panel - S mee or Plasma [facility] Patient Education LOW%20FAT%20DIET [email or web address] Work Phone: Patient referral [facility] Work Phone: Radionuclide imaging of perfusion of myocardium under exercise stress [facility] Work Phone: [facility] [place] Work Phone: Immunizations Immunization Date Immunization Notes Care Provider Fa [facility] 07-05-2024 influenza, injectabl e, quadrivalent, preservative free Dr. Teo Lamb MD Work Phone: [facility] 08-14-2023 influenza, injectabl e, quadrivalent, preservative free Dr. Teo Lamb Work Phone: [facility] Payers Date Payer Category Payer Self-pay [id number] 2015 Private Health Insurance [id number] 2011 Medicare [id number] Unknown [id number] 2.16.8 [id number] Unknown [id number] 2.16.8 [id number] Unknown [id number] 2.16.8 [id number] Unknown [id number] 2.16.8 [id number] Unknown [id number] 2.16.8 [id number] Unknown [id number] 2.16.8 [id number] Unknown [id number] 2.16.8 [id number] Unknown [id number] 2.16.8 [id number] Social History Date Type Detail Facility Start: 03-04-2022 End: 12-02-2023 Tobacco smoking status MTIS Unknown if ever smoked [facility] Start: 04-08-2018 None [facility] Start: 04-08-2018 Spouse/ Signif icant Other [facility] Start: 05-19-2018 Cigarettes [facility] Start: 1945 Sex Assigned At Male [facility] Start: 01-27-2024 Tobacco smoking status NHIS Ex-smoker (finding) [facility] Medical Equipment Procedure Code Equipment Code Equipment Origin al Text Equipment Identifier Dates PATCH,VASC .8CM X 8CM FDA Start: 05-18-2018 SUTURE,LIGA CLIP MED LT200 FDA Start: 05-18-2018 SUTURE,LIGA CLIP MED LT200 FDA Start: 05-18-2018 SUTURE,LIGA CLIP SM LT-100 FDA Start: 05-18-2018 SUTURE,LIGA CLIP SM LT-100 FDA Start: 05-18-2018 SUTURE,LIGA CLIP SM LT-100 FDA Start: 05-18-2018 PATCH,VASC .8CM X 8CM FDA Start: 05-18-2018 SUTURE,LIGA CLIP MED LT200 FDA Start: 05-18-2018 SUTURE,LIGA CLIP MED LT200 FDA Start: 05-18-2018 SUTURE,LIGA CLIP SM LT-100 FDA Start: 05-18-2018 SUTURE,LIGA CLIP SM LT-100 FDA Start: 05-18-2018 SUTURE,LIGA CLIP SM LT-100 FDA Start: 05-18-2018 PATCH,VASC .8CM X 8CM FDA Start: 05-18-2018 SUTURE,LIGA CLIP MED LT200 FDA Start: 05-18-2018 SUTURE,LIGA CLIP MED LT200 FDA Start: 05-18-2018 SUTURE,LIGA CLIP SM LT-100 FDA Start: 05-18-2018 SUTURE,LIGA CLIP SM LT-100 FDA Start: 05-18-2018 SUTURE,LIGA CLIP SM LT-100 FDA Start: 05-18-2018 PATCH,VASC .8CM X 8CM FDA Start: 05-18-2018 SUTURE,LIGA CLIP MED LT200 FDA Start: 05-18-2018 SUTURE,LIGA CLIP MED LT200 FDA Start: 05-18-2018 SUTURE,LIGA CLIP SM LT-100 FDA Start: 05-18-2018 SUTURE,LIGA CLIP SM LT-100 FDA Start: 05-18-2018 SUTURE,LIGA CLIP SM LT-100 FDA Start: 05-18-2018 PATCH,VASC .8CM X 8CM FDA Start: 05-18-2018 SUTURE,LIGA CLIP MED LT200 FDA Start: 05-18-2018 SUTURE,LIGA CLIP MED LT200 FDA Start: 05-18-2018 SUTURE,LIGA CLIP SM LT-100 FDA Start: 05-18-2018 SUTURE,LIGA CLIP SM LT-100 FDA Start: 05-18-2018 SUTURE,LIGA CLIP SM LT-100 FDA Start: 05-18-2018 PATCH,VASC .8CM X 8CM FDA Start: 05-18-2018 SUTURE,LIGA CLIP MED LT200 FDA Start: 05-18-2018 SUTURE,LIGA CLIP MED LT200 FDA Start: 05-18-2018 SUTURE,LIGA CLIP SM LT-100 FDA Start: 05-18-2018 SUTURE,LIGA CLIP SM LT-100 FDA Start: 05-18-2018 SUTURE,LIGA CLIP SM LT-100 FDA Start: 05-18-2018 PATCH,VASC .8CM X 8CM FDA Start: 05-18-2018 SUTURE,LIGA CLIP MED LT200 FDA Start: 05-18-2018 SUTURE,LIGA CLIP MED LT200 FDA Start: 05-18-2018 SUTURE,LIGA CLIP SM LT-100 FDA Start: 05-18-2018 SUTURE,LIGA CLIP SM LT-100 FDA Start: 05-18-2018 SUTURE,LIGA CLIP SM LT-100 FDA Start: 05-18-2018 PATCH,VASC .8CM X 8CM FDA Start: 05-18-2018 SUTURE,LIGA CLIP MED LT200 FDA Start: 05-18-2018 SUTURE,LIGA CLIP MED LT200 FDA Start: 05-18-2018 SUTURE,LIGA CLIP SM LT-100 FDA Start: 05-18-2018 SUTURE,LIGA CLIP SM LT-100 FDA Start: 05-18-2018 SUTURE,LIGA CLIP SM LT-100 FDA Start: 05-18-2018 PATCH,VASC .8CM X 8CM FDA Start: 05-18-2018 SUTURE,LIGA CLIP MED LT200 FDA Start: 05-18-2018 SUTURE,LIGA CLIP MED LT200 FDA Start: 05-18-2018 SUTURE,LIGA CLIP SM LT-100 FDA Start: 05-18-2018 SUTURE,LIGA CLIP SM LT-100 FDA Start: 05-18-2018 SUTURE,LIGA CLIP SM LT-100 FDA Start: 05-18-2018 PATCH,VASC .8CM X 8CM FDA Start: 05-18-2018 SUTURE,LIGA CLIP MED LT200 FDA Start: 05-18-2018 SUTURE,LIGA CLIP MED LT200 FDA Start: 05-18-2018 SUTURE,LIGA CLIP SM LT-100 FDA Start: 05-18-2018 SUTURE,LIGA CLIP SM LT-100 FDA Start: 05-18-2018 SUTURE,LIGA CLIP SM LT-100 FDA Start: 05-18-2018 PATCH,VASC .8CM X 8CM FDA Start: 05-18-2018 SUTURE,LIGA CLIP MED LT200 FDA Start: 05-18-2018 SUTURE,LIGA CLIP MED LT200 FDA Start: 05-18-2018 SUTURE,LIGA CLIP SM LT-100 FDA Start: 05-18-2018 SUTURE,LIGA CLIP SM LT-100 FDA Start: 05-18-2018 SUTURE,LIGA CLIP SM LT-100 FDA Start: 05-18-2018 PATCH,VASC .8CM X 8CM FDA Start: 05-18-2018 SUTURE,LIGA CLIP MED LT200 FDA Start: 05-18-2018 SUTURE,LIGA CLIP MED LT200 FDA Start: 05-18-2018 SUTURE,LIGA CLIP SM LT-100 FDA Start: 05-18-2018 SUTURE,LIGA CLIP SM LT-100 FDA Start: 05-18-2018 SUTURE,LIGA CLIP SM LT-100 FDA Start: 05-18-2018 Clinical Notes 01-27-2025 Note Date & Type Note Facility 01-27-2025 Evaluation note Diagnosis Onset Date Resolution Atherosclerotic heart disease of [place] coronary artery without angina pectoris chronic January 27, 2025 10:02am Essential (primary) hypertension chronic January 27, 2025 10:02am Hyperlipidemia chronic January 10:02am Left carotid artery stenosis chronic January 27, 2025 10:02am Peripheral vascular occlusive disease chronic January 27 10:02am [facility] Work Phone: Evaluation note* Diagnosis Onset Date Resolution Status History of ischemic stroke a cute Tension headache acute Cluster headache chronic [facility] Work Phone: Evaluation note* Diagnosis Onset Date Resolution Status Tension headache acute Cluster headache chronic Dyspnea on exertion acute Essential (primary) hypertension chronic Hyperlipidemia chronic Peripheral vascular occlusive disease [place] Work Phone: Evaluation note* Diagnosis Onset Date Resolution Status Dyspnea on exertion acute Essential (primary) hypertension chronic Hyperlipidemia chronic Peripheral vascular occlusive disease [place] Work Phone: Evaluation note* Diagnosis Onset Date Resolution Status Dyspnea on exertion acute Atherosclerotic heart diseas e of [place] coronary artery without angina pectoris chronic Essential (primary) hypertension chronic Hyperlipidemia chronic Left carotid artery stenosis chronic Peripheral vascular occlusive disease chronic Fibromyalgia chronic Tension headache chronic Cluster headache resolved History of ischemic stroke r esolved [facility] Work Phone: Evaluation note* Diagnosis Onset Date Resolution Status Dyspnea on exertion acute Atherosclerotic heart diseas e of [place] coronary artery without angina pectoris chronic Essential (primary) hypertension chronic Hyperlipidemia chronic Left carotid artery stenosis chronic Peripheral vascular occlusive disease chronic Fibromyalgia chronic Tension headache chronic Cluster headache resolved History of ischemic stroke r esolved BMI 30.0-30.9,adult acute Sleep apnea acute [facility] Work Phone: Evaluation note* Diagnosis Onset Date Resolution Status BMI 30.0-30.9,adult acute Sleep apnea acute [facility] Work Phone: Evaluation note* Diagnosis Onset Date Resolution Status Fibromyalgia chronic Tension headache chronic Cluster headache resolved History of ischemic stroke r esolved Diastasis recti acute Asthma chronic BMI 30.0-30.9,adult chronic KAM (obstructive sleep apnea) chronic [facility] Work Phone: Evaluation note* Diagnosis Onset Date Resolution Status Asthma chronic BMI 30.0-30.9,adult chronic KAM (obstructive sleep apnea) chronic Acute pharyngitis acute [facility] Work Phone: Evaluation note* Diagnosis Onset Date Resolution Status Asthma chronic BMI 30.0-30.9,adult chronic KAM (obstructive sleep apnea) chronic Acute pharyngitis acute KAM (obstructive sleep apnea) chronic Hyperglycemia acute Fibromyalgia chronic Tension headache chronic Cluster headache resolved History of ischemic stroke r [facility] Work Phone: Evaluation note* Diagnosis Onset Date Resolution Status Acute pharyngitis acute KAM (obstructive sleep apnea) chronic Hyperglycemia acute Fibromyalgia chronic Tension headache chronic Cluster headache resolved History of ischemic stroke r [facility] Work Phone: Reason for referral (narrative)No [facility] Work [facility]: Summary Purpose Family History No Family History Records Found Relationship Condition Age at Onset Recorded Date/T chance father Myocardial infarction 41 Malignant neoplasm Unknown Advance Directives No Advanced Directives Records Found Advance Directive Response Recorded Date/ Time Living Will No April 18, 2021 8:56am Power of Top Distribution Executive No April 18 8:56am Advance Directive Response Recorded Date/ Time Living Will No April 18, 2021 7:56am Power of Top Distribution Executive No April 18 7:56am Advance Directive Response Recorded Date/ Time Living Will No April 18, 2021 8:56am Do you have a Healthcare Power of Top Distribution Executive? No April 18, 2021 8:56am Chief Complaint and Reason for Visit Chief Complaint 6 M FU Reason for Visit History of ischemic stroke Tension headache Cluster headache Chief Complaint 6 M FU 9 M FU E ORDERS Reason for Visit Tension headache Cluster headache Dyspnea on exertion Essential (primary) hypertension Hyperlipidemia Peripheral vascular occlusive disease Chief Complaint 9 M FU E ORDERS CAD ASHD Reason for Visit Dyspnea on exertion Essential (primary) hypertension Hyperlipidemia Peripheral vascular occlusive disease Chief Complaint CHILLS WITHOUT FEVER 6 M FU 9 M FU Occlusion and stenosis of left carotid artery Reason for Visit Dyspnea on exertion Atherosclerotic heart disease of [place] coronary artery without angina pectoris Essential (primary) hypertension Hyperlipidemia Left carotid artery stenosis Peripheral vascular occlusive disease Fibromyalgia Tension headache Cluster headache History of ischemic stroke Chief Complaint 6 M FU 9 M FU Occlusion and stenosis of left carotid artery Sleep apnea SLEEP APNEA Reason for Visit Dyspnea on exertion Atherosclerotic heart disease of [place] coronary artery without angina pectoris Essential (primary) hypertension Hyperlipidemia Left carotid artery stenosis Peripheral vascular occlusive disease Fibromyalgia Tension headache Cluster headache History of ischemic stroke BMI 30.0-30.9,adult Sleep apnea Chief Complaint Sleep apnea SLEEP APNEA Reason for Visit BMI 30.0-30.9,adult Sleep apnea Chief Complaint 6 M FU SELF REFERRED POSSIBLE HERNIA 3 M FU Reason for Visit Fibromyalgia Tension headache Cluster headache History of ischemic stroke Diastasis recti Asthma BMI 30.0-30.9,adult KAM (obstructive sleep apnea) Chief Complaint 3 M FU SORE THROAT SCREENING Reason for Visit Asthma BMI 30.0-30.9,adult KAM (obstructive sleep apnea) Acute pharyngitis Chief Complaint 3 M FU SORE THROAT SCREENING 3 M FU 6 MO FU EORDER Reason for Visit Asthma BMI 30.0-30.9,adult KAM (obstructive sleep apnea) Acute pharyngitis KAM (obstructive sleep apnea) Hyperglycemia Fibromyalgia Tension headache Cluster headache History of ischemic stroke Chief Complaint SORE THROAT SCREENING 3 M FU 6 MO FU EORDER CHILLS WITHOUT FEVER Reason for Visit Acute pharyngitis KAM (obstructive sleep apnea) Hyperglycemia Fibromyalgia Tension headache Cluster headache History of ischemic stroke Chief Complaint Admit Date 1 Y FU January 27, 2025 10: 02am Reason for Visit Admit Date Atherosclerotic heart diseas e of [place] coronary artery without angina pectoris January 27, 2025 10:02am Essential (primary) hypertension January 182024 10:02am Hyperlipidemia January 27, 2025 10: 02am Left carotid artery stenosis January 27, 2025 10:02am Peripheral vascular occlusive disease Ap ril 2024 10:02am Additional Source Comments (unrecognized sect ion and content) No Status Records FoundNo Status Records Found INFORMATION SOURCE (unrecogn ized section and content) DATE CREATED AUTHOR 01/27/2021 [facility] DATE CREATED AUTHOR AUTHOR'S ORGANIZ ATION 05/31/[address] [facility] Goals (unrecognized section and content) Goals may be documented in a n alternate sectionGoals may be documented in an alternate sectionGoals may be documented in an alternate sectionGoals may be documented in an alternate sectionGoals may be documented in an alternate sectionGoals may be documented in an alternate sectionGoals may be documented in an alternate sectionGoals may be documented in an alternate sectionGoals may be documented in an alternate sectionGoals may be documented in an alternate sectionGoals may be documented in an alternate sectionGoals may be documented in an alternate section Care Teams (unrecognized sec tion and content) Team Status: Active Member Role Status Dates Dr. Teo Lamb MD Family Provider Active Dr. Teo Lamb MD Primary Care Provider Active Team Status: Inactive Member Role Status Dates Dr. Teo Lamb MD Primary Care Provider, Referring Provider Active Dr. Hank Ray MD Attending Provider Active Team Status: Inactive Member Role Status Dates Dr. Teo Lamb MD Primary Care Provider, Referring Provider Active Lois Doll ROOFING LABORER, ROOFING LABORER-C Attending Provider Active Team Status: Active Member Role Status Dates Dr. Teo Lamb MD Primary Care Provider Active Dr. Reinaldo Romero MD Attending Provider Active Team Status: Inactive Member Role Status Dates Dr. Teo Lamb MD Primary Care Provi tr, Attending Provider, Referring Provider Active Team Status: Inactive Member Role Status Dates Dr. Teo Lamb MD Primary Care Provider, Attending Provider Active Team Status: Inactive Member Role Status Dates Dr. Teo Lamb MD Primary Care Provider Active Lois Doll ROOFING LABORER, ROOFING LABORER-C Attending Provider, Referring P josue Active Team Status: Active Member Role Status Dates Dr. Teo Lamb MD Primary Care Provider Active Dr. Reinaldo Romero MD Attending Provider Active Lois Doll ROOFING LABORER, ROOFING LABORER-C Referring Provider Active Team Status: Inactive Member Role Status Dates Dr. Teo Lamb MD Primary Care Provider, Referring Provider Active Jada Atkins ROOFING LABORER, ROOFING LABORER-C Attending Provider Active Team Status: Inactive Member Role Status Dates Dr. Teo Lamb MD Primary Care Provider Active Jada Atkins ROOFING LABORER, ROOFING LABORER-C Attending Provider, Referrin g Provider Active Team Status: Inactive Member Role Status Dates Dr. Teo Lamb MD Primary Care Provider, Referring Provider Active Dr. Reinaldo Romero MD Attending Provider Active Team Status: Inactive Member Role Status Dates Dr. Teo Lamb MD Primary Care Provider, Referring Provider Active Gerald Smith PA, PA Attending Provider Active Team Status: Inactive Member Role Status Dates Dr. Teo Lamb MD Primary Care Provider, Referring Provider Active Dr. Javed Crockett DO Attending Provider Active Team Status: Inactive Member Role Status Dates Dr. Teo Lamb MD Primary Care Provider Active Dr. Hank Ray MD Attending Provider, Referring Provider Active Team Status: Inactive Member Role Status Dates Dr. Teo Lamb MD Primary Care Provider Active Start: January 27, 2025 End: January 27, 2025 Dr. Teo Lamb MD Referring Provider Active Start: January 27, 2025 End: January 27, 2025 Lois Doll NP, ROOFING LABORER-C Attending Provider Active Start: January 27, 2025 End: January 27, 2025 Team Status: Inactive Member Role Status Dates Dr. Teo Lamb MD Primary Care Provider Active Start: March 30, 2025 End: March 30, 2025 Dr. Teo Lamb MD Attending Provider Active Start: March 30, 2025 End: March 30, 2025 Dr. Teo Lamb MD Referring Provider Active Start: March 30, 2025 End: March 30, 2025 Team Status: Active Member Role/Relationship Status Dates Dr. Teo Lamb MD Family Provider Active Dr. Teo Lamb MD Primary Care Provider Active Team Status: Inactive Member Role/Relationship Status Dates Dr. Teo Lamb MD Primary Care Provider Active Start: January 27, 2025 End: January 27, 2025 Dr. Teo Lamb MD Referring Provider Active Start: January 27, 2025 End: January 27, 2025 Lois Doll NP, ROOFING LABORER-C Attending Provider Active Start: January 27, 2025 End: January 27, 2025 Team Status: Inactive Member Role/Relationship Status Dates Dr. Teo Lamb MD Primary Care Provider Active Start: March 30, 2025 End: March 30, 2025 Dr. Teo Lamb MD Attending Provider Active Start: March 30, 2025 End: March 30, 2025 Dr. Teo Lamb MD Referring Provider Active Start: March 30, 2025 End: March 30, 2025 Team Status: Inactive Member Role/Relationship Status Dates Dr. Teo Lamb MD Primary Care Provider Active Start: May 09, 2025 End: May 09, 2025 Dr. Teo Lamb MD Attending Provider Active Start: May 09, 2025 End: May 09, 2025 FOR RECORDS PERTAINING TO PATIENTS WHO ARE [...] BE BASED ON THE PRIMARY CLINICAL RECORDS. [facility] provides no warranty or guarantee of the accuracy or completeness of information in this document.
== END | disposition home or self-care (01) ==
PROVIDERS: PCP Family Medicine Geriatric Medicine; Referring Provider Family Medicine Geriatric Medicine; Visit Provider Family Medicine Geriatric Medicine
DX: N17.9 Acute kidney failure, unspecified (principal); I10 Essential (primary) hypertension
CPT/HCPCS: 36415; 74176; 76770; 80048

== ENCOUNTER → 2025-06-03 | Outpatient (CLI) | payer MEDICARE, OTHER, SELFPAY ==
[2025-06-03 11:55] LABS: Anion Gap 11 (5-15); BUN 28 mg/dL (4-19); BUN/Creat Ratio 24.5 RATIO (10-20); Calcium,Total 9.0 mg/dL (7.6-11.0); Carbon Dioxide 23.3 mmol/L (21.0-32.0); Chloride 106 mmol/L (98-108); Glucose 82 mg/dL (70-99); Potassium 4.2 mmol/L (3.3-5.1)
== END | disposition home or self-care (01) ==
LOC: LAB 10:43
PROVIDERS: PCP Family Medicine Geriatric Medicine; Referring Provider Family Medicine Geriatric Medicine; Visit Provider Family Medicine Geriatric Medicine
DX: N17.9 Acute kidney failure, unspecified (principal)
CPT/HCPCS: 36415; 80048

== ENCOUNTER → 2025-06-08 | Outpatient (CLI) | payer MEDICARE, OTHER, SELFPAY ==
--- NOTE | 2025-06-08 10:38 | ART_ITS ---
Reason For Study Reason For Study: PAOD Procedure A bilateral lower extremity continuous wave Doppler with analog waveform analysis and ankle brachial indexes. Left Segmental Pressures Left brachial= 128mmHg. Left posterior tibial artery = 135mmHg. Left dorsalis pedis artery = 123mmHg. Left digit = 95 mmHg. The left dorsalis pedis waveforms are triphasic. The left posterior tibial artery waveforms are triphasic. Right Segmental Pressures Right brachial= 124mmHg. Right posterior tibial artery = 125mmHg. Right dorsalis pedis artery = 114mmHg. Right digit = 111 mmHg. The right dorsalis pedis waveforms are biphasic. The right posterior tibial artery waveforms are biphasic. Indices The right ankle brachial index by the dorsalis pedis is 0.89. The right ankle brachial index by the posterior tibial artery is 0.98. The right digital-brachial index is 0.87. The left ankle brachial index by the dorsalis pedis is 0.96. The left ankle brachial index by the posterior tibial artery is 1.05. The left digital-brachial index is 0.74. VL/Ankle Brachial Index Interpretation Summary Biphasic Doppler waveforms are noted at ankle level on the right. Triphasic Dop pler waveforms are noted at ankle level on the left. Pulse-volume recordings appear satisfactory at ankle and digital l evels bilaterally. Resting ankle-brachial indices are normal bilaterally. Digital-brachial indices are normal bilaterally . There is no evidence of significant arterial occlusive disease in the lower ext remities bilaterally. Ordering Physician: Teo Lamb Chi Referring Physician: TEO LAMB CHI, MD Performed By: Iesha Cervantes RVT
== END | disposition home or self-care (01) ==
LOC: CVS 10:35
PROVIDERS: PCP Family Medicine Geriatric Medicine; Referring Provider Family Medicine Geriatric Medicine; Visit Provider Family Medicine Geriatric Medicine
DX: I73.9 Peripheral vascular disease, unspecified (principal); R29.898 Other symptoms and signs involving the musculoskeletal system
CPT/HCPCS: 93922

== ENCOUNTER → 2025-06-21 | Outpatient (CLI) | payer MEDICARE, OTHER, SELFPAY ==
--- NOTE | 2025-06-21 07:22 | MRI_ITS ---
PROCEDURE: SPINE LUMBAR (ROUTINE) 06/21/2025 REASON FOR EXAM: RADICULOPATHY TECHNIQUE: Procedure Code: MRISPL Modality: MR Procedure: SPINE LUMBAR (ROUTINE) COMPARISON: None. FINDINGS: Vertebrae: There are no compression fractures. There is normal bone marrow signal in the visualized lumbosacral vertebral bodies. Alignment: There is maintenance of the normal lumbar lordosis. Conus Medullaris: The conus medullaris terminates normally at the T12-L1 level. L1-2: There is minimal disc degeneration without disc bulging or protrusion. There is facet arthropathy with ligamentum flavum bulging. There is no central canal stenosis, lateral recess stenosis or foraminal narrowing. L2-3: There is moderate disc degeneration. There is an anterior disc protrusion. There is bilateral facet arthropathy with ligamentum flavum bulging. There is no central canal stenosis, lateral recess stenosis or foraminal narrowing. L3-4: There is moderate disc degeneration. There is a broad-based central disc protrusion. There is an anterior disc protrusion. There is bilateral facet arthropathy with ligamentum flavum bulging. There is compression of the thecal sac without central canal stenosis. There is mild lateral recess stenosis with moderate foraminal narrowing on the left and mild foraminal narrowing on the right. L4-5: There is moderate disc degeneration. There is a broad-based central disc protrusion. There is bilateral facet arthropathy with centrally oriented osteophytes and ligamentum flavum bulging. There is compression of the thecal sac without central canal stenosis. There is mild lateral recess stenosis and foraminal narrowing on the right. There is mild lateral recess stenosis and moderate foraminal narrowing on the left. L5-S1: There is moderate disc degeneration. There is a broad-based central disc protrusion. There is bilateral facet arthropathy with centrally oriented osteophytes and ligamentum flavum bulging. There is no central canal stenosis. There is no lateral recess stenosis. There is moderate foraminal narrowing on the right. There is no foraminal narrowing on the left. Sacrum: Unremarkable. The paravertebral soft tissues are unremarkable. MRI/Spine Lumbar (Routine) IMPRESSION: 1. 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 2. There is compression of the thecal sac without central canal stenosis at mu ltiple levels. 3. There is lateral recess stenosis and/or foraminal narrowing at multiple lev els as described. 4. Other findings as noted. Reading Location: [id number]
--- OUTSIDE RECORDS SUMMARY | 2025-06-21 07:32 | XMS RPT_ITS | CCD ---
Author Organization [facility] Care Team Providers Care Bristle Machine Operator Name Role Phone Margarita LOGAN, Carmina Willis Unavailable Unavailable Ramos, Erica Unavailable Unavailable DeFinis, Harumi Y Unavailable Unavailable Ramos, Erica Unavailable Unavailable Adoins, Dr. Teo Muller Primary Care Provider Adonis, Dr. Teo Muller Referring Provider Oziel DE LEON, SUPERVISOR AIR CONDITIONING INSTALLER-C Brinda Attending Provider Dr. Costa Ashby Attending Provider Adonis, Dr. Teo Muller Primary Care Provider Adonis, Dr. Teo Muller Referring Provider Adonis, Dr. Teo Muller Primary Care Provider Adonis, Dr. Teo Muller Referring Provider Lavon DE LEON, SUPERVISOR AIR CONDITIONING INSTALLER-C Lois Attending Provider Dr. Hank Ray Attending Provider Dr. Reinaldo Romero Attending Provider Adonis, Dr. Teo Muller Primary Care Provider [phone] Adonis, Dr. Teo Muller Referring Provider Lavon DE LEON, SUPERVISOR AIR CONDITIONING INSTALLER-C Lois Attending Provider Dr. Hank Ray Attending Provider Dr. Reinaldo Romero Attending Provider [phone] Lavon SUPERVISOR AIR CONDITIONING INSTALLER, SUPERVISOR AIR CONDITIONING INSTALLER-C Lois Referring Provider Wilbert DE LEON, SUPERVISOR AIR CONDITIONING INSTALLER-C Jada Attending Provider Adonis, Dr. Teo Muller Primary Care Provider Adonis, Dr. Teo Muller Referring Provider Adonis, Dr. Teo Muller Primary Care Provider Adonis, Dr. Teo Muller Referring Provider Dr. Hank Ray Attending Provider Dr. Reinaldo Romreo Attending Provider [phone] Wilbert DE LEON, SUPERVISOR AIR CONDITIONING INSTALLER-C Jada Attending Provider Adonis, Dr. Teo Muller Primary Care Provider Adonis, Dr. Teo Muller Referring Provider LIOR Flores Attending Provider Dr. Javed Crockett Attending Provider [phone] Dr. Hank Ray Attending Provider Adonis, Dr. Teo Muller Primary Care Provider Adonis, Dr. Teo Mullre Referring Provider [phone] LIOR Flores Attending Provider Dr. Javed Crockett Attending Provider [phone] Dr. Hank Ray Attending Provider Adonis QUIÑONES, Dr. Teo Muller Primary Care Provider Dr. Teo Veronica MD, Chi Referring Provider Lois Puga Attending Provider [phone] Dr. Teo Veronica MD, Chi Attending Provider Dr. Teo Veronica MD, Chi Primary Care Provider [phone] Dr. Teo Veronica MD, Chi Referring Provider [phone] Adonis, Teo Chi Primary Care Unavailable Adonis, Teo Chi Attending Unavailable Adonis, Teo Chi Referring Unavailable Adonis, Teo Chi Primary Care Unavailable Adonis, Teo Chi Attending Unavailable Adonis, Teo Chi Referring Unavailable Adonis, Teo Chi Primary Care Unavailable Adonis, Teo Chi Attending Unavailable Adonis, Teo Chi Primary Care Unavailable Adonis, Teo Chi Attending Unavailable Adonis, Teo Chi Referring Unavailable Adonis, Teo Chi Attending Unavailable Adonis, Teo Chi Referring Unavailable Adonis, Teo Chi Primary Care Unavailable Adonis, Teo Chi Primary Care Unavailable Adonis, Teo Chi Attending Unavailable Adonis, Teo Chi Referring Unavailable Adonis, Teo Chi Attending Unavailable Adonis, Teo Chi Referring Unavailable Adonis, Teo Chi Primary Care Unavailable Jada Atkins NP Attending Unavailable Adonis, Teo Chi Primary Care Unavailable Adonis, Teo Chi Referring Unavailable Hank Ray Attending Unavailable Adonis, Teo Chi Primary Care Unavailable Adonis, Teo Chi Referring Unavailable Adonis, Teo Chi Primary Care Unavailable Lois Doll NP Attending Unavailable Adonis, Teo Chi Referring Unavailable Adonis, Teo Chi Primary Care Unavailable Adonis, Teo Chi Attending Unavailable Adonis, Teo Chi Referring Unavailable Allergies Allergy Classification Reported Allergen(s) Allergy Type Date of Onset Reaction(s) Facility (4 sources) shellfish, unspecified; Translations: [SHELLFISH] food allergy 01-08-2011 ? [employer] Work Phone: Medications Current Medications Medication Drug Class(es) Dates Sig (Normalized) Sig (Original) [id number] actuat albuterol 0.09 mg/actuat metered dose [...] Base) MCG/ACT AERS as needed ALBUTEROL SULFATE [id number] Costa Ashby MD Start: 11-10-2015 PROAIR HFA 108 (90 Base) MCG/ACT AERS as needed ALBUTEROL SULFATE [id number] Costa Ashby MD aspirin 81 mg delayed [...] TBEC One tablet by mouth daily ASPIRIN [id number] Thelma Bean Start: 01-08-2011 take 1 tablet by [place] once daily ASPIRIN EC 81 MG TBEC One tablet by mouth daily ASPIRIN [id number] Carolyn Wright RN cilostazol 100 mg oral [...] One tablet by mouth twice daily CILOSTAZOL [id number] Costa Ashby MD Ohmhsgvo-Kbbfq-Jud 149-Hyal Ac (Glucos Chond Cplx Advanced) 750 mg-100 mg- 125 mg-1.65 mg tablet (6 sources) Start: 10-10-2017 take 1 tablet by mouth twice daily before mealtime Jzpmtftz-Wdetz-Mnm 149-Hyal Ac (Glucos Chond Cplx Advanced) 750 mg-100 mg- 125 mg-1.65 mg tablet Active 1 {tbl} PO TWICE A DAY 0 October 10, 2017 1:00am SUPPLEMENT Start: 10-10-2017 take 1 tablet by santo th twice daily before mealtime Qznaxwkj-Ujswr-Xax 149-Hyal Ac (Glucos Chond Cplx Advanced) 750 mg-100 mg- 125 mg-1.65 mg tablet Active 1 {tbl} PO TWICE A DAY October 10, 2017 1:00am ateysjhnatd-psfumnfex-jmvr36 9-hyal 750 mg-100 mg-125 mg-1.65 mg tablet (10 sources) Start: 10-10-2017 take 1 tablet by mouth twice daily oxceaqiferg-ukjgcdycg-abzy228-hyal 750 mg-100 mg-125 mg-1.65 mg tablet Active 1 TABLET PO TWICE A DAY October 10, 2017 5:07pm Start: 10-10-2017 take 1 tablet by mouth twice daily bfbiiylzwem-emzwvjiwo-ryyf512-hyal 750 m g-100 mg-125 mg-1.65 mg tablet Active 1 TABLET PO TWICE A DAY October 10, 2017 12:00am Start: 10-10-2017 take 1 tablet by mouth twice daily yqyojsopvbp-hkeqazmsv-lqzy996-hyal 750 m g-100 mg-125 mg-1.65 mg tablet Active 1 TABLET PO TWICE A DAY October 10, 2017 1:00am levothyroxine sodium 0.025 mg oral tablet (16 sources) l-Thyroxine Start: 09-01-2020 take 1 tablet by mouth once daily Levothyroxine 25 mcg tablet Active 25 ug PO DAILY September 01, 2020 1:00am loratadine 10 mg oral tablet (20 sources) Start: 10-10-2017 End: 12-08-2018 take 1 tablet by mouth once daily as needed Loratadine (Claritin) 10 mg tablet Active 10 mg PO daily as needed for ALLERGIES December 08, 2018 11:43am Djbiwezu-Niy-Jp-Lycop en-Lutein (Centrum Silver Men) 300-600-300 mcg Tablet (5 sources) Start: 04-18-2021 take 300-600 tablets by mouth once daily Aodpkdwp-Fen-Hv-Lyco pen-Lutein (Centrum Silver Men) 300-600-300 mcg Tablet Active 1 TABLET PO DAILY April 18, 2021 8:46am Start: 04-18-2021 take 300-600 tablets by mouth once daily Qafxjzkq-Cvq-Zs-Lycopen-Lutein (Centrum Silver Men) 300-600-300 mcg Tablet Active 1 TABLET PO DAILY April 17, 2021 11:00pm Start: 04-18-2021 take 300-600 tablets by mouth once daily Hlnjpzcq-Ami-Ns-Lycopen-Lutein (Centrum Silver Men) 300-600-300 mcg Tablet Active 1 TABLET PO DAILY April 18, 2021 12:00am Mi-Nzo-Skjjm-J5-Csbyzzd-Tixr in (Centrum Silver Men) 300-600-300 mcg Tablet (11 sources) Start: 04-18-2021 Rl-Zof-Xghnv-J9-Smtmihy-Gglc in (Centrum Silver Men) 300-600-300 mcg Tablet Active 1 {tbl} PO DAILY April 18, 2021 12:00am Start: 04-18-2021 take 300-600 tablets by mouth once daily Is-Txl-Bjauu-N5-Xcmfyjb-Orwgdf (Centrum Silver Men) 300-600-300 mcg Tablet Active 1 TABLET PO DAILY April 17, 2021 11:00pm Start: 04-18-2021 take 300-600 tablets by mouth once daily Mb-Zxc-Wygab-K2-Bzrfenp-Bdagog (Centrvera Espinoza) 300-600-300 mcg Tablet Active 1 TABLET PO DAILY April 18, 2021 12:00am Kelayres-3 Fatty Acids (Super Kelayres-3) 1,000 mg capsule (20 sources) Start: 12-02-2022 take 3 capsules by mouth twice daily Kelayres-3 Fatty Acids (Super Kelayres-3) 1,000 mg capsule Active 1000 mg PO TWICE A DAY December 02, 2022 2:48pm SUPPLEMENT Start: 12-02-2022 take 3 capsules by m outh twice daily Kelayres-3 Fatty Acids (Super Kelayres-3) 1,000 mg capsule Active 1000 mg PO TWICE A DAY December 02, 2022 2:48pm Start: 12-02-2022 take 3 capsules by m outh twice daily Kelayres-3 Fatty Acids (Super Kelayres-3) 1,000 mg capsule Active 1000 MG PO TWICE A DAY December 02, 2022 2:48pm Start: 12-02-2022 take 3 capsules by m outh twice daily Kelayres-3 Fatty Acids (Super Kelayres-3) 1,000 mg capsule Active 1000 MG PO TWICE A DAY December 02, 2022 1:48pm Start: 10-10-2017 take 3 capsules by m outh once daily Kelayres-3 Fatty Acids (Super Kelayres-3) 1,000 mg capsule Active 1000 MG PO daily October 10, 2017 5:09pm Start: 10-10-2017 End: 12-02-2022 take 3 capsules by mouth once daily Kelayres-3 Fatty Acids (Super Kelayres-3) 1,000 mg capsule Discontinued 1000 mg PO daily October 10, 2017 1:00am December 02, 2022 2:48pm SUPPLEMENT Start: 10-10-2017 End: 12-02-2022 take 3 capsules by mouth once daily Kelayres-3 Fatty Acids (Super Kelayres-3) 1,000 mg capsule Discontinued 1000 mg PO daily October 10, 2017 1:00am December 02, 2022 2:48pm Start: 10-10-2017 End: 12-02-2022 take 3 capsules by mouth once daily Kelayres-3 Fatty Acids (Super Kelayres-3) 1,000 mg capsule Discontinued 1000 MG PO daily October 10, 2017 1:00am December 02, 2022 2:48pm Start: 10-10-2017 End: 12-02-2022 take 3 capsules by mouth once daily Kelayres-3 Fatty Acids (Super Kelayres-3) 1,000 mg capsule Discontinued 1000 MG PO daily October 10, 2017 12:00am December 02, 2022 1:48pm Start: 10-10-2017 take 3 capsules by m out once daily Kelayres-3 Fatty Acids (Super Kelayres-3) 1,000 mg capsule Active 1000 MG PO [...] One tablet by mouth twice daily OMEPRAZOLE [id number] Thelma Bean Start: 01-08-2011 take 1 tablet by santo th twice daily PRILOSEC 20 MG CPDR One tablet by mouth twice daily OMEPRAZOLE [id number] Thelma Bean tamsulosin hydrochloride 0.4 mg oral [...] evening for headache VERELAN PM 200 MG [id number] One tablet by mouth daily For cluster headaches VERAPAMIL HCL [id number] Thelma Bean Start: 01-08-2011 take 1 tablet by th once daily in the evening for headache VERELAN PM 200 MG [id number] One tablet by mouth daily For cluster headaches VERAPAMIL HCL [id number] Thelma Bean Completed/Discontinued Medications Medication Drug Class(es) Dates Sig (Normalized) Sig (Original) acetaminophen 325 mg / HYDROcodone bitartrate 5 mg oral tablet (16 sources) Opioid Agonist Start: 05-18-2018 End: 06-20-2018 [...] 1 tablet by santo th once daily AMITRIPTYLINE HCL 25 MG TABS (Elavil) One tablet by mouth daily AMITRIPTYLINE HCL [id number] Thelma Bean amoxicillin 500 mg oral capsule (16 sources) Penicillin-class Antibacterial Start: 10-10-2017 End: 10-17-2017 [...] Start: 01-18-2014 take 2 tablets by mo [facility] once daily LIPITOR 40 MG TABS Two tablets by mouth daily ATORVASTATIN CALCIUM [id number] Naz Scanlon PA-C Start: 01-18-2014 take 1 tablet by santo once daily LIPITOR 80 MG TABS One tablet by mouth daily ATORVASTATIN CALCIUM [id number] Costa Ashby MD Start: 01-08-2011 take 1 tablet by santo th once daily LIPITOR 40 MG TABS One tablet by mouth daily ATORVASTATIN CALCIUM [id number] Costa Ashby MD Beclomethasone Dipropionate (20 sources) [...] mg / menthol 10 mg oral lozenge (9 sources) Standardized Chemical Allergen Start: 10-10-2023 End: 01-27-2025 Benzocaine-Menthol (Chloraseptic Max) 15-10 mg lozenge Discontinued 1 NMA MUCOUS MEM .4 times daily as needed for sore throat 15 0 October 10, 2023 1:00am January 27, 2025 10:20am Start: 10-10-2023 Benzocaine-Men thol (Chloraseptic Max) 15-10 mg lozenge Active 1 LOZENGE MUCOUS MEM .4 times daily October 10, 2023 1:00am BUDESONIDE-FORMOTEROL FUMARATE (4 sources) Corticosteroid, beta2-Adrenergic Agonist Start: 01-08-2011 take 1 puff(s) by inhalation once daily as needed SYMBICORT 80-4.5 MCG/ACT AERO Inhale 1 puff daily as needed BUDESONIDE-FORMOTEROL FUMARATE [id number] Thelma Bean Start: 01-08-2011 SYMBICORT 80-4 .5 MCG/ACT AERO Inhale 1 puff daily as needed BUDESONIDE-FORMOTEROL FUMARATE [id number] Thelma Bean cephalexin 500 mg oral capsule (16 sources) Cephalosporin Antibacterial Start: 06-20-2018 End: 12-08-2018 take 1 capsule by mouth every twelve hours Cephalexin 500 MG capsule Discontinued 500 mg PO EVERY 12 HOURS 14 0 June 20, 2018 12:00am December 08, 2018 11:42am GLUCOSAMINE-CHOND ROITIN CAPS (8 sources) Start: 01-08-2011 End: 07-20-2013 take 1 tablet by mouth once daily GLUCOSAMINE-CHONDR OITIN CAPS One tablet by mouth daily GLUCOSAMINE-CHONDR OITIN CAPS [id number] Costa Ashby MD Start: 01-08-2011 take 1 tablet by satno th once daily GLUCOSAMINE-CHONDROITIN CAPS One tablet by mouth daily GLUCOSAMINE-CHONDROITIN CAPS [id number] Thelma Bean clopidogrel 75 mg oral tablet [...] One tablet by mouth daily CLOPIDOGREL BISULFATE [id number] Costa Ashby MD Cyclosporine (Restasis) 0.05 % dropperette (13 sources) Start: 11-29-2022 End: 01-27-2024 Cyclosporine (Restasis) 0.05 % dropperette Discontinued 1 NMA OPHTHALMIC Q1H November 29, 2022 1:00am January 27, 2024 10:05am Start: 11-29-2022 Cyclosporine ( Restasis) 0.05 % dropperette Active 1 DRP OPHTHALMIC Q1H November 29, 2022 1:00am Start: 11-29-2022 Cyclosporine ( Restasis) 0.05 % dropperette Active 1 DRP OPHTHALMIC Q1H November 29, 2022 12:00am enalapril maleate 20 mg [...] tablet by mouth twice daily ENALAPRIL MALEATE [id number] Costa Ashby MD Start: 07-20-2013 take 1 tablet by santo once daily ENALAPRIL MALEATE 10 MG TABS One tablet by mouth daily ENALAPRIL MALEATE [id number] Dallas Kline MD Start: 01-08-2011 take 1 tablet by santo in the morning, then take 0.5 tablet by mouth in the evening VASOTEC 5 MG TABS 1 tablet by mouth in the morning & 1/2 tablet in the evening ENALAPRIL MALEATE [id number] Costa Ashby MD fluorometholone 1 mg/ml ophthalmic suspension (13 sources) Corticosteroid Start: 11-29-2022 End: 01-27-2025 Fluorometholone 0.1 % drops,suspension Discontinued 1 NMA OPHTHALMIC EVERY 6 HOURS November 29, 2022 1:00am January 27, 2025 10:21am fluticasone furoate 0.0275 mg/actuat metered dose nasal spray (20 sources) Corticosteroid Start: 06-20-2018 End: 05-27-2021 Fluticasone [...] 1 puff daily as needed FLUTICASONE FUROATE [id number] Thelma Bean Start: 01-08-2011 VERAMYST 27.5 MCG/SPRAY SUSP Inhale 1 puff daily as needed FLUTICASONE FUROATE [id number] Thelma Bean folic acid 1 mg oral [...] One tablet by mouth daily FOLIC ACID [id number] Thelma Bean gabapentin 300 mg oral capsule [...] the evening & 2 at night GABAPENTIN [id number] Thelma Bean Start: 01-08-2011 NEURONTIN 300 MG CAPS 1 tablet by mouth in the evening & 2 at night GABAPENTIN [id number] Thelma Bean glucosamine 1000 mg oral tablet (4 sources) Start: 07-20-2013 GLUCOSAMINE HCL TABS 1500mg GLUCOSAMINE HCL TABS Costa Ashby MD hydroCHLOROthiazide 25 mg oral tablet (20 sources) Thiazide Diuretic Start: 12-17-2022 End: 04-25-2025 take 1 tablet by mouth once daily Hydrochlorothiazide 25 mg tablet Discontinued 25 mg PO DAILY 90 3 July 01, 2024 7:51am April 25, 2025 7:49am Start: 06-04-2022 End: [...] 30 mg tablet extended release 24 hr Discontinued 30 mg PO AT BEDTIME 90 July 21, 2024 8:12am May 11, 2025 9:08am for blood pressure Start: 10-10-2017 End: 12-04-2017 take 1 tablet by mouth twice daily Isosorbide Mononitrate 20 mg tablet Discontinued 20 mg PO TWICE A DAY October 10, 2017 1:00am December 04, 2017 3:24pm Start: 01-08-2011 take 1 tablet by santo th once daily ISOSORBIDE MONONITRATE ER 30 MG [id number] One tablet by mouth daily (Imdur) ISOSORBIDE MONONITRATE [id number] Costa Ashby MD meloxicam 7.5 mg oral tablet (16 sources) Nonsteroidal Anti-inflammatory Drug Start: 10-10-2017 End: [...] once da omaira TOPROL XL 50 MG [id number] One tablet by mouth daily METOPROLOL SUCCINATE [id number] Costa Ashby MD Start: 01-08-2011 take 1 tablet by mouth once da omaira TOPROL XL 50 MG [id number] One tablet by mouth daily METOPROLOL SUCCINATE [id number] Costa Ashby MD modafinil 100 mg oral [...] TABS One tablet by mouth daily MODAFINIL [id number] Thelma Bean MULTIPLE VITAMINS-MINERALS (3 sources) Start: 01-08-2011 take 1 tablet by mouth once daily CENTRUM SILVER TABS One tablet by mouth daily MULTIPLE VITAMINS-MINERALS [id number] Thelma Bean MULTIPLE VITAMINS-MINERALS (1 source) Start: 01-08-2011 take 1 tablet by mouth once daily CENTRUM SILVER TABS One tablet by mouth daily MULTIPLE VITAMINS-MINERALS [id number] Thelma Bean Mavrqyyo-Ybw-Dr-Lycopen-L utein (Centrum Silver Men) 300-600-300 mcg tablet (5 sources) Start: 10-10-2017 End: 05-27-2021 take 300-600 tablets by mouth once daily Lpicraso-Fsm-Qa-Lycopen-L utein (Centrum Silver Men) 300-600-300 mcg tablet Discontinued 1 TABLET PO DAILY October 10, 2017 5:06pm May 27, 2021 8:41am Start: 10-10-2017 End: 05-27-2021 take 300-600 tablets by mouth once daily Mvotmble-Tzu-Di-Lycopen-Lutein (Centrum Silver Men) 300-600-300 mcg tablet Discontinued 1 TABLET PO DAILY October 10, 2017 12:00am May 27, 2021 7:41am Start: 10-10-2017 End: 05-27-2021 take 300-600 tablets by mouth once daily Rsobisaz-Imv-Dn-Lycopen-Lutein (Centrum Silver Men) 300-600-300 mcg tablet Discontinued 1 TABLET PO DAILY October 10, 2017 1:00am May 27, 2021 8:41am Je-Ddy-Kloxs-A7-Fqlexsi-Adnr in (Centrum Silver Men) 300-600-300 mcg tablet (11 sources) Start: 10-10-2017 End: 05-27-2021 Jm-Avh-Kzsvt-I2-Buuybuy-Xkqt in (Centrum Silver Men) 300-600-300 mcg tablet Discontinued 1 {tbl} PO DAILY 0 October 10, 2017 1:00am May 27, 2021 8:41am SUPPLEMENT Start: 10-10-2017 End: 05-27-2021 Dh-Opk-Fkonu-G0-Fjtrsyu-Shus in (Centrum Silver Men) 300-600-300 mcg tablet Discontinued 1 {tbl} PO DAILY October 10, 2017 1:00am May 27, 2021 8:41am Start: 10-10-2017 End: 05-27-2021 take 300-600 tablets by mouth once daily Cp-Bee-Jbcve-N5-Weaufcu-Obfnst (Centrum Silver Men) 300-600-300 mcg tablet Discontinued 1 TABLET PO DAILY October 10, 2017 12:00am May 27, 2021 7:41am Start: 10-10-2017 End: 05-27-2021 take 300-600 tablets by mouth once daily Na-Ngy-Nprbm-D1-Ongztlz-Fedoqy (Centrum Silver Men) 300-600-300 mcg tablet Discontinued [...] 5 min up to 3 X NITROGLYCERIN [id number] Naz Scanlon PA-C omega-3 acid ethyl esters (fpc) 1000 mg oral capsule (13 sources) Start: 11-29-2022 End: 12-02-2022 Kelayres-3 Acid Ethyl Esters 1 gram capsule Discontinued 1 NMA PO TWICE A DAY November 29, 2022 1:00am December 02, 2022 2:48pm Start: 11-29-2022 End: 12-02-2022 take 1 capsule by mouth twice daily Kelayres-3 Acid Ethyl Esters Discontinued 1 CAP PO TWICE A DAY November 29, 2022 1:00am December 02, 2022 2:48pm OMEGA-3 FATTY ACIDS CPDR (3 sources) Start: 01-08-2011 take 1 tablet by mouth once daily OMEGA 3 CPDR One tablet by mouth daily OMEGA-3 FATTY ACIDS CPDR [id number] Thelma Bean OMEGA-3 FATTY ACIDS CPDR (1 source) Start: 01-08-2011 take 1 tablet by mouth once daily OMEGA 3 CPDR One tablet by mouth daily OMEGA-3 FATTY ACIDS CPDR [id number] Thelma Bean predniSONE 20 mg oral tablet (12 sources) Start: 02-24-2024 End: 07-05-2024 take 3 [...] SUPPLEMENT Start: 01-08-2011 take 1 capsule by [facility] twice daily RIBOFLAVIN CAPS 10Mg, 200mg po BID RIBOFLAVIN CAPS [id number] Thelma Bean Start: 01-08-2011 take 1 capsule by [facility] twice daily RIBOFLAVIN CAPS 200mg po BID RIBOFLAVIN CAPS [id number] Costa Ashby MD Start: 01-08-2011 take 1 capsule by mo [facility] twice daily RIBOFLAVIN CAPS 200mg po BID RIBOFLAVIN CAPS [id number] Costa Ashby MD Start: 01-08-2011 RIBOFLAVIN CAP S 10Mg, 200mg po BID RIBOFLAVIN CAPS [id number] Thelma Bean Problems Active Problems Problem Classification Problem Date Documented Date Episodic/Chronic Acute and unspecified renal failure (1 source) Acute kidney failure, unspecified; Translations: [Acute kidney failure, unspecified] Onset: 06-09-2025 Episodic Acute cerebrovascular disease (16 sources) Ischemic stroke; Translations: [Cerebral infarction, unspecified] Onset: 10-20-2017 09-10-2021 Chronic Acute myocardial infarction (4 sources) Subsequent ST elevation (STEMI) myocardial infarction of inferior wall; Translations: [Subsequent ST elevation (STEMI) myocardial infarction of inferior wall] Onset: 01-08-2011 01-08-2011 Chronic Asthma (13 sources) Asthma; Translations: [Unspecified asthma, uncomplicated] 08-14-2023 Chronic Chronic obstructive pulmonary disease and bronchiectasis (1 source) Chronic obstructive pulmonary disease, unspecified; Translations: [Chronic obstructive pulmonary disease, unspecified] Onset: 07-05-2024 Chronic Coronary atherosclerosis and other heart disease (20 sources) Old myocardial infarction; Translations: [Coronary arteriosclerosis] Onset: 01-08-2011 11-27-2016 Chronic Diabetes mellitus without complication (10 sources) Hyperglycemia; Translations: [Hyperglycemia, unspecified] 12-02-2023 Episodic Disorders of lipid metabolism (20 sources) Hyperlipidemia; Translations: [Hyperlipidemia, unspecified] Onset: 04-21-2012 04-21-2012 Chronic Esophageal disorders (16 sources) Gastroesophageal reflux disease; Translations: [Gastro-esophageal reflux disease without esophagitis] 09-10-2021 Chronic Essential hypertension (20 sources) Hypertensive disorder; Translations: [Essential hypertension] Onset: 01-18-2014 01-18-2014 Chronic Headache; including migraine (20 sources) Tension-type headache; Translations: [Tension-type headache, unspecified, not intractable] Chronic Immunizations and screening for infectious disease (20 sources) Patient encounter status; Translations: [Encounter for screening for COVID-19] 09-10-2021 Episodic Malaise and fatigue (15 sources) Fatigue; Translations: [Other fatigue] 06-04-2022 Episodic Occlusion or stenosis of precerebral arteries (20 sources) Left carotid artery stenosis; Translations: [Occlusion and stenosis of left carotid artery] 06-21-2019 Chronic Comment on above: Left carotid endarte rectomy with bovine patch angioplasty 05/18/2018 Other circulatory disease (14 sources) History of cerebrovascular accident due to ischemia; Translations: [Personal history of transient ischemic attack (TIA), and cerebral infarction without residual deficits] 12-02-2022 Episodic Comment on above: 2017 Other circulatory disease (6 sources) Personal history of transient ischemic attack (TIA), and cerebral infarction without residual deficits; Translations: [Personal history of transient ischemic attack (TIA), and cerebral infarction without residual deficits] Episodic Other connective tissue disease (13 sources) Fibromyalgia; Translations: [Fibromyalgia] 12-02-2022 Episodic Other connective tissue disease (5 sources) Fibromyalgia; Translations: [Myalgia and myositis, unspecified] 12-02-2022 Episodic Other connective tissue disease (10 sources) Diastasis recti; Translations: [Separation of muscle (nontraumatic), other site] 06-27-2023 Episodic Other connective tissue disease (1 source) Separation of muscle (nontraumatic), other site; Translations: [Diastasis of muscle] 06-27-2023 Episodic Other connective tissue disease (1 source) Other symptoms and signs involving the musculoskeletal system; Translations: [Other symptoms and signs involving the musculoskeletal system] Onset: 06-14-2025 Episodic Other lower respiratory disease (15 sources) Dyspnea on exertion; Translations: [Other forms of dyspnea] 06-04-2022 Episodic Other lower respiratory disease (4 sources) Other forms of dyspnea; Translations: [Other respiratory abnormalities] Episodic Other lower respiratory disease (6 sources) Hypoxia; Translations: [Hypoxemia] 02-23-2024 Episodic Other [...] Chronic Other nutritional; endocrine; and metabolic disorders (12 sources) Body mass index 30+ - obesity; Translations: [Body mass index (BMI) 30.0-30.9, adult] 01-14-2023 Chronic Other nutritional; endocrine; and metabolic disorders (5 sources) Body mass index (BMI) 30.0-30.9, adult; Translations: [Body Mass Index 30.0-30.9, adult] 01-14-2023 Chronic Other nutritional; endocrine; and metabolic disorders (6 sources) Obesity; Translations: [Obesity, unspecified] 02-17-2024 Chronic Other upper respiratory infections (20 sources) Acute upper respiratory infection; Translations: [Acute upper respiratory infection, unspecified] 06-21-2019 Episodic Peripheral and visceral atherosclerosis (20 sources) Atherosclerosis of aorta; Translations: [Arteriosclerotic vascular disease] Onset: 01-08-2011 01-08-2011 Chronic Comment on above: 1998 right leg; [employer] and [employer] atherectomy to RLE SFA and popliteal artery 06/07/13 Residual codes; unclassified (16 sources) Sleep apnea; Translations: [Sleep apnea, unspecified] 03-22-2021 Chronic Residual codes; unclassified (2 sources) Sleep apnea, unspecified; Translations: [Unspecified sleep apnea] 01-14-2023 Chronic Residual codes; unclassified (11 sources) Obstructive sleep apnea syndrome; Translations: [Obstructive sleep apnea (adult) (pediatric)] 04-07-2023 Chronic Residual codes; unclassified (5 sources) Obstructive sleep apnea (adult) (pediatric); Translations: [Obstructive sleep apnea (adult)(pediatric)] 08-14-2023 Chronic Residual codes; unclassified (1 source) Chills (without fever); Translations: [Chills (without fever)] Onset: 05-13-2025 Episodic Thyroid disorders (16 sources) Disorder of thyroid gland; Translations: [Disorder of thyroid, unspecified] 09-10-2021 Episodic Transient cerebral ischemia (16 sources) Transient cerebral ischemia; Translations: [Transient cerebral ischemic attack, unspecified] Onset: 04-07-2018 09-10-2021 Chronic Comment on above: March 2018 Unclassified (1 source) Long-term drug therapy; Translations: [Other intermediate accountant (current) drug therapy] Onset: 01-08-2011 01-08-2011 Past or Other Problems Problem Classification Problem Date Documented Da te Episodic/Chronic Blindness and vision defects (4 sources) Transient visual loss; Translations: [Transient visual loss, unspecified eye] Onset: 01-08-2011 01-08-2011 Episodic Other aftercare (3 sources) Other intermediate accountant (current) drug therapy; Translations: [Other intermediate accountant (current) drug therapy] Onset: 01-08-2011 01-08-2011 Episodic Results Test Name Value Interpretation Reference Range Facility Ankle Brachial Indexon 06-08 Ankle Brachial Index [facility] Cardiovascular Services [address] [facility] [place] [address] Ankle Brachial Index 06/08/25 1053 MR#: [id number] Acct: [id number] Name: ERROL RIVERA Rep #: [id number] : 1945 80 From: Hemal Meza MD Attending Dr: Dr. Teo Veronica MD Status: [facility] Ordering Dr: Teo Veronica MD Date: 06/08/25 Location: [facility] Sex: M C Admitted: Reason For Study Reason For Study: PAOD Procedure A bilateral lower extremity continuous wave Doppler with analog waveform analysis and ankle brachial indexes. Left Segmental Pressures Left brachial= 128mmHg. Left posterior tibial artery = 135mmHg. Left dorsalis pedis artery = 123mmHg. Left digit = 95 mmHg. The left dorsalis pedis waveforms are triphasic. The left posterior tibial artery waveforms are triphasic. Right Segmental Pressures Right brachial= 124mmHg. Right posterior tibial artery = 125mmHg. Right dorsalis pedis artery = 114mmHg. Right digit = 111 mmHg. The right dorsalis pedis waveforms are biphasic. The right posterior tibial artery waveforms are biphasic. Indices The right ankle brachial index by the dorsalis pedis is 0.89. The right ankle brachial index by the posterior tibial artery is 0.98. The right digital-brachial index is 0.87. The left ankle brachial index by the dorsalis pedis is 0.96. The left ankle brachial index by the posterior tibial artery is 1.05. The left digital-brachial index is 0.74. VL/Ankle Brachial Index Interpretation Summary Biphasic Doppler waveforms are noted at ankle level on the right. Triphasic Doppler waveforms are noted at ankle level on the left. Pulse-volume recordings appear satisfactory at ankle and digital levels bilaterally. Resting ankle-brachial indices are normal bilaterally. Digital-brachial indices are normal bilaterally. There is no evidence of significant arterial occlusive disease in the lower extremities bilaterally. __ Ordering Physician: Teo Veronica Chi Referring Physician: TEO VERONICA CHI, MD Performed By: Iesha Cervantes RVT 06/08/252358 Date Hemal Meza MD CC: Dr. Teo Veronica MD Date Dictated: 06/08/25 1053 Date Transcribed: 06/08/252358 Military Logistics Specialist: Signed Normal [facility] Arterial study reportOrdered By: Hemal Meza on 06-08-2025 Noninvasive arteriosclerosis study report [facility] Cardiovascular Services [address] [place] [address] Ankle Brachial Index 06/08/25 1053 MR#: [id number] Acct: [id number] Name: ERROL RIVERA Rep #:[id number] : 1945 80 From: Hemal Meza MD Attending Dr: Dr. Teo Veronica MD Status: REG CLI Ordering Dr: Teo Veronica MD Date: Location: [facility] Sex: M C Admitted: Reason For Study Reason For Study: PAOD Procedure A bilateral lower extremity continuous wave Doppler with analog waveform analysis and ankle brachial indexes. Left Segmental Pressures Left brachial= 128mmHg. Left posterior tibial artery = 135mmHg. Left dorsalis pedis artery = 123mmHg. Left digit = 95 mmHg. The left dorsalis pedis waveforms are triphasic. The left posterior tibialartery waveforms are triphasic. Right Segmental Pressures Right brachial= 124mmHg. Right posterior tibial artery = 125mmHg. Right dorsalispedis artery = 114mmHg. Right digit = 111 mmHg. The right dorsalis pedis waveforms are biphasic. The right posterior tibial artery waveforms are biphasic. Indices The right ankle brachial index by the dorsalis pedis is 0.89. The right ankle brachial index by the posterior tibial artery is 0.98. The right digital-brachial index is 0.87. The left ankle brachial index by the dorsalis pedis is 0.96. The left ankle brachial index by the posterior tibial artery is 1.05. The left digital-brachial index is 0.74. VL/Ankle Brachial Index Interpretation Summary Biphasic Doppler waveforms are noted at ankle level on the right. Triphasic Doppler waveforms are noted at ankle level on the left. Pulse-volume recordings appear satisfactory at ankle and digital levels bilaterally. Resting ankle-brachial indices are normal bilaterally. Digital-brachial indices are normal bilaterally. There is no evidence of significant arterial occlusive disease in the lower extremities bilaterally. __ Ordering Physician: Teo Veronica Chi Referring Physician: TEO VERONICA CHI, MD Performed By: Iesha Cervanets RVT 06/08/25 9577 Date _ Hemal Meza MD CC: Dr. Teo Veronica MD ~ Date Dictated: 06/08/25 1053 Date Transcribed: 06/08/25 4643 Military Logistics Specialist: Signed [facility] Other Phone: Anion gap in Serum or Plasma Ordered By: Teo Veronica on 2025 Anion gap [Moles/Vol] 11 mmol/L 03-03 [facility] BUN/creatinine ratioOrdered By: Teo Veronica on 2025 Urea nitrogen/Creatinine [Mass ratio] 24.5 mg/mg High 08-08 [facility] Basic Metabolic Profile (BMP )on 2025 BUN/CRE 24.5 RATIO High 08-08 [facility] Comment on above: Order Comment: PT NO T FASTING FOR [facility] LABS Performed By: #### M 100.678 #### [facility] Laboratory [address] [place], [address] Calcium [Mass/Vol] 9.0 mg/dL Normal 7.6-11.0 [facility] Comment on above: Order Comment: PT NO T FASTING FOR [facility] LABS Performed By: #### M 100.678 #### [facility] Laboratory [address] [place], [address] Chloride [Moles/Vol] 106 mmol/L Normal 98-108 [facility] Comment on above: Order Comment: PT NO T FASTING FOR [facility] LABS Performed By: #### M 100.678 #### [facility] Laboratory [address] [place], [address] CO2 [Moles/Vol] 23.3 mmol/L Normal 21.0-32.0 [facility] Comment on above: Order Comment: PT NO T FASTING FOR [facility] LABS Performed By: #### M 100.678 #### [facility] Laboratory [address] [place], [address] Creatinine [Mass/Vol] 1.15 mg/dL Normal 0.70-1.20 [facility] Comment on above: Order Comment: PT NO T FASTING FOR [facility] LABS Performed By: #### M 100.678 #### [facility] Laboratory [address] [place], [address] GAP 11 Normal 5-15 [facility] Comment on above: Order Comment: PT NO T FASTING FOR [facility] LABS Performed By: #### M 100.678 #### [facility] Laboratory [address] [place], [address] GFR/1.73 sq M.predicted among non-blacks MDRD (S/P/Bld) [Vol rate/Area] 65 mL/min/{1.73_m2} Normal >60 [facility] Comment on above: Order Comment: PT NO T FASTING FOR [facility] LABS Result Comment: mL/m in/1.73m2 CKD-EPI Creatinine Equation (2020) Performed By: #### M 100.678 #### [facility] Laboratory [address] [place], [address] Glucose [Mass/Vol] 82 mg/dL Normal 70-99 [facility] Comment on above: Order Comment: PT NO T FASTING FOR [facility] LABS Performed By: #### M 100.678 #### [facility] Laboratory [address] [place], [address] Potassium [Moles/Vol] 4.2 mmol/L Normal 3.3-5.1 [facility] Comment on above: Order Comment: PT NO T FASTING FOR [facility] LABS Performed By: #### M 100.678 #### [facility] Laboratory [address] [place], [address] Sodium [Moles/Vol] 139 mmol/L Normal 133-145 [facility] Comment on above: Order Comment: PT NO T FASTING FOR [facility] LABS Performed By: #### M 100.678 #### [facility] Laboratory [address] [place], [address] Urea nitrogen [Mass/Vol] 28 mg/dL High 4-19 [facility] Comment on above: Order Comment: PT NO T FASTING FOR [facility] LABS Performed By: #### M 100.678 #### [facility] Laboratory [address] [place], [place], [id number] Carbon dioxide, total [Moles /volume] in Central venous bloodOrdered By: Teo Veronica on 2025 CO2 [Moles/Vol] 23.3 mmol/L 21.0-32.0 [facility] Chloride assayOrdered By: Baudilio Veronica on 2025 Chloride [Moles/Vol] 106 mmol/L 98-108 [facility] Glomerular filtration rate ( GFR) estimation/1.73 sq m using serum, plasma, or whole bOrdered By: Teo Veronica on 2025 GFR/1.73 sq M.predicted among non-blacks MDRD (S/P/Bld) [Vol rate/Area] 65 mL/min/{1.73_m2} >60 [facility] Comment on above: mL/min/1.73m2 CKD-EP I Creatinine Equation (2020) Potassium measurement (mass/ volume)Ordered By: Teo Veronica on 2025 Potassium (Unsp spec) [Mass/Vol] 4.2 mmol/L 3.3-5.1 [facility] Serum creatinine measurement (mass/volume)Ordered By: Teo Veronica on 2025 Creatinine [Mass/Vol] 1.15 mg/dL 0.70-1.20 [facility] Serum glucose measurement (m ass/volume)Ordered By: Teo Veronica 2025 Glucose [Mass/Vol] 82 mg/dL 70-99 [facility] Serum or plasma calcium aneudy urement (mass/volume)Ordered By: Teo Veronica 2025 Calcium [Mass/Vol] 9.0 mg/dL 7.6-11.0 [facility] Serum or plasma urea nitroge n measurement (mass/volume)Ordered By: Teo Veronica on 2025 Urea nitrogen [Mass/Vol] 28 mg/dL High 4-19 [facility] Sodium levelOrdered By: Teo Veronica 2025 Sodium [Moles/Vol] 139 mmol/L 133-145 [facility] Abdomen/Pelvis without Conto n 06-01-2025 Abdomen/Pelvis without Cont [facility] Imaging Services [address] [place], [place] [address] Abdomen/Pelvis without Cont MR#: [id number] Acct: [id number] Name: ERROL RIVERA Rep #: [id number] : 1945 M 79 From: Vladimir dickerson MD PCP: Dr. Teo Veronica MD Status: REG CLI Study: Abdomen/Pelvis without Cont Date of Exam: 05/20 01/11 Exam# [id number] Ordering Dr: Teo Veronica MD PROCEDURE: ABDOMEN/PELVIS WITHOUT CONT 06/01/2025 REASON FOR EXAM: ACUTE KI INJURY Weakness. TECHNIQUE: ABDOMEN/PELVIS WITHOUT CONT Noncontrast technique limits evaluation of the abdominal and pelvic viscera. Coronal and Sagittal reconstruction series were provided. One or more dose reduction techniques were used (e.g., Automated exposure control, adjustment of the mA and/or kV according to patient size, use of iterative reconstruction technique). RADIATION DOSE SUMMARY: CTDlvol: 15.01 mGy DLP: 821.31 mGycm COMPARISON: June 20, 2018. FINDINGS: Lung bases: Lung bases are clear. Coronary artery calcification. Moderate-sized hiatal hernia. Liver: Normal size. No obvious mass. Gallbladder: No evidence of gallstones. Spleen: Normal size. Pancreas: Diffuse fatty atrophy. Adrenals: Unremarkable Kidneys: Nonspecific bilateral perinephric stranding. No evidence of hydronephrosis. Bladder: Unremarkable Prostatic enlargement with indentation at the bladder base. Bowel: Colonic diverticulosis without diverticulitis. Appendix: The appendix is not identified. There is no inflammatory process identified in the right lower quadrant to suggest appendicitis. Lymph nodes: Unremarkable. Vasculature: Diffuse atherosclerotic changes of the abdominal aorta and the major visceral branches. Peritoneum / Retroperitoneum: Unremarkable Bones: Mild degree of degenerative changes. CT/Abdomen/Pelvis without Cont IMPRESSION: No evidence of hydronephrosis. Sigmoid diverticulosis. Coronary artery calcification. Hiatal hernia. Reading Location: [facility] CC: Dr. Teo Veronica MD Military Logistics Specialist: Signed Normal [facility] Anion gap in Serum or Plasma Ordered By: Teo Veronica on 06-01-2025 Anion gap [Moles/Vol] 15 mmol/L - [facility] BUN/creatinine ratioOrdered By: Teo Veronica on 06-01-2025 Urea nitrogen/Creatinine [Mass ratio] 21.0 mg/mg High - [facility] Basic Metabolic Profile (BMP )on 06-01-2025 BUN/CRE 21.0 RATIO High - [facility] Comment on above: Performed By: #### L 500.2500 ####[facility] [address] [place], [address] Calcium [Mass/Vol] 9.2 mg/dL Normal 7.6-11.0 [facility] Comment on above: Performed By: #### L 500.2500 ####[facility] [address] [place], [address] Chloride [Moles/Vol] 102 mmol/L Normal 98-108 [facility] Comment on above: Performed By: #### L 500.2500 ####[facility] [address] [place], [address] CO2 [Moles/Vol] 19.9 mmol/L Low 21.0-32.0 [facility] Comment on above: Performed By: #### L 500.2500 ####[facility] [address] [place], [address] Creatinine [Mass/Vol] 1.68 mg/dL High 0.70-1.20 [facility] Comment on above: Performed By: #### L 500.2500 ####[facility] [address] [place], [address] GAP 15 Normal - [facility] Comment on above: Performed By: #### L 500.2500 ####[facility] [address] [place], [address] GFR/1.73 sq M.predicted among non-blacks MDRD (S/P/Bld) [Vol rate/Area] 41 mL/min/{1.73_m2} Low >60 [facility] Comment on above: Result Comment: mL/m in/1.73m2 CKD-EPI Creatinine Equation (2020) Performed By: #### L 500.2500 ####[facility] [address] [place], [address] Glucose [Mass/Vol] 126 mg/dL High 70-99 [facility] Comment on above: Performed By: #### L 500.2500 ####[facility] [address] [place], [address] Potassium [Moles/Vol] 4.3 mmol/L Normal 3.3-5.1 [facility] Comment on above: Performed By: #### L 500.2500 ####[facility] [address] [place], [address] Sodium [Moles/Vol] 137 mmol/L Normal 133-145 [facility] Comment on above: Performed By: #### L 500.2500 ####[facility] [address] [place], [address] Urea nitrogen [Mass/Vol] 35 mg/dL High 4-19 [facility] Comment on above: Performed By: #### L 500.2500 ####[facility] [address] [place], [address] CRP, High Sensitivity [id number] on 06-01-2025 CRP, HIGH SENS 0.24 mg/L Normal 0.00-3.00 [facility] Comment on above: Result Comment: Rela tive Risk for Future Cardiovascular Event Low <1.00 Average 1.00 - 3.00 High >3.00 Performed at: [address] [id number] Breastfeeding Educator: Virgil Bolanos PhD, Phone: [phone] Performed By: #### L 3100.8866, L503.0106, L500.6390, L501.8920, L100.0100, L3100.8321, L101.9900 ####[facility] [address] [place], [place], [id number] Carbon dioxide, total [Moles /volume] in Central venous bloodOrdered By: Teo Veronica on 06-01-2025 CO2 [Moles/Vol] 19.9 mmol/L Low 21.0-32.0 [facility] Chloride assayOrdered By: Baudilio Veronica on 06-01-2025 Chloride [Moles/Vol] 102 mmol/L 98-108 [facility] Glomerular filtration rate ( GFR) estimation/1.73 sq m using serum, plasma, or whole bOrdered By: Teo Veronica on 06-01-2025 GFR/1.73 sq M.predicted among non-blacks MDRD (S/P/Bld) [Vol rate/Area] 41 mL/min/{1.73_m2} Low >60 [facility] Comment on above: mL/min/1.73m2 CKD-EP I Creatinine Equation (2020) Kidney and Bladderon 025 Kidney and Bladder [facility] Imaging Services [address] [place], [place] [address] Kidney and Bladder MR#: [id number] Acct: [id number] Name: ERROL RIVERA Rep #: [id number] : 1945 M 79 From: Vladimir dickerson MD PCP: Dr. Teo Veronica MD Status: [facility] Study: Kidney and Bladder Date of Exam: 06/01/25 Exam# [id number] Ordering Dr: Teo Veronica MD PROCEDURE: KIDNEY AND BLADDER N/A REASON FOR EXAM: ACUTE KI INJURY TECHNIQUE: KIDNEY AND BLADDER COMPARISON: None FINDINGS: Kidneys: Normal renal sizes, parenchymal thicknesses, and echotextures. [place]: No hydronephrosis Cysts or Masses: No cysts or large solid renal masses. Other: RIGHT Kidney Size: 9.9 cm x 5.8 cm x 5.6 cm Volume: 168.95 mL Cortical Thickness (if discernible): 15 mm (>6mm is normal) LEFT Kidney Size: 10.2 cm x 5.2 cm x 5.5 cm Volume: 151.96 mL Cortical Thickness (if discernible): 13 mm (>6mm is normal) US/Kidney and Bladder IMPRESSION: NORMAL RENAL ULTRASOUND. Reading Location: [id number] CC: Dr. Teo Veronica MD Military Logistics Specialist: Signed Normal [facility] Potassium measurement (mass/ volume)Ordered By: Teo Veronica on 06-01-2025 Potassium (Unsp spec) [Mass/Vol] 4.3 mmol/L 3.3-5.1 [facility] Protein Electroph, Son 06-01 Albumin [Mass/Vol] 3.7 g/dL Normal 2.9-4.4 [facility] Comment on above: Performed By: #### M 100.678 #### [facility] Laboratory [address] [place], [address] Albumin/Globulin [Mass ratio] 1.4 {ratio} Normal 0.7-1.7 [facility] Comment on above: Performed By: #### M 100.678 #### [facility] Laboratory [address] [place], [address] ALPHA-1 GLOBUL 0.2 g/dL Normal 0.0-0.4 [facility] Comment on above: Performed By: #### M 100.678 #### [facility] Laboratory [address] [place], [address] ALPHA-2 GLOBUL 0.7 g/dL Normal 0.4-1.0 [facility] Comment on above: Performed By: #### M 100.678 #### [facility] Laboratory [address] [place], [address] BETA GLOBULIN 1.0 g/dL Normal 0.7-1.3 [facility] Comment on above: Performed By: #### M 100.678 #### [facility] Laboratory [address] [place], [address] GAMMA GLOBULIN 0.7 g/dL Normal 0.4-1.8 [facility] Comment on above: Performed By: #### M 100.678 #### [facility] Laboratory [address] [place], [address] Globulin (S) [Mass/Vol] 2.6 g/dL Normal 2.2-3.9 [facility] Comment on above: Performed By: #### M 100.678 #### [facility] Laboratory [address] [place], [address] INTERPRETATION Comment Normal . [facility] Comment on above: Result Comment: Prot ein electrophoresis scan will follow via computer, mail, or welder apprentice combination delivery. Performed By: #### M 100.678 #### [facility] Laboratory [address] [place], [address] M-SPIKE Not Observed Normal Not Observed [facility] Comment on above: Performed By: #### M 100.678 #### [facility] Laboratory [address] [place], [address] NOTE: Comment Normal . [facility] Comment on above: Result Comment: The SPE pattern appears unremarkable. Evidence of monoclonal protein is not apparent. Performed at: [address] [id number] Breastfeeding Educator: Virgil Bolanos PhD, Phone: [phone] Performed By: #### M 100.678 #### [facility] Laboratory [address] [place], [address] Protein [Mass/Vol] 6.3 g/dL Normal 6.0-8.5 [facility] Comment on above: Performed By: #### M 100.678 #### [facility] Laboratory [address] [place], [address] Serum creatinine measurement (mass/volume)Ordered By: Teo Veronica on 06-01-2025 Creatinine [Mass/Vol] 1.68 mg/dL High 0.70-1.20 [facility] Serum glucose measurement (m ass/volume)Ordered By: Teo Veronica on 06-01-2025 Glucose [Mass/Vol] 126 mg/dL High 70-99 [facility] Serum or plasma calcium aneudy urement (mass/volume)Ordered By: Teo Veronica on 06-01-2025 Calcium [Mass/Vol] 9.2 mg/dL 7.6-11.0 [facility] Serum or plasma urea nitroge n measurement (mass/volume)Ordered By: Teo Veronica on 06-01-2025 Urea nitrogen [Mass/Vol] 35 mg/dL High 4-19 [facility] Sodium levelOrdered By: Teo Veronica on 06-01-2025 Sodium [Moles/Vol] 137 mmol/L 133-145 [facility] Absolute lymphocyte countOrd ered By: Teo Veronica on 05-30-2025 Lymphocytes Auto (Unsp spec) [#/Vol] 1.88 10*3/uL 0.83-4.51 [facility] Absolute neutrophil countOrd ered By: Teo Veronica on 05-30-2025 Neutrophils (Bld) [#/Vol] 3.3 10*3/uL 2.0-7.7 [facility] Albumin Elph [Mass/Vol]Order ed By: Teo Veronica on 05-30-2025 Albumin [Mass/Vol] 3.7 g/dL 2.9-4.4 [facility] Anion gap in Serum or Plasma Ordered By: Teo Veronica on 05-30-2025 Anion gap [Moles/Vol] 12 mmol/L 5-15 [facility] Automated lymphocyte count a s percentage of total leukocytesOrdered By: Teo Veronica on 05-30-2025 Lymphocytes/100 WBC Auto (Unsp spec) 31.5 % 19-41 [facility] BUN/creatinine ratioOrdered By: Teo Veronica on 05-30-2025 Urea nitrogen/Creatinine [Mass ratio] 13.8 mg/mg 10-20 [facility] Basophil percentageOrdered B y: Teo Veronica on 05-30-2025 Basophils/100 WBC (Bld) 0.5 % 0-1 [facility] Bilirubin, totalOrdered By: Teo Veronica on 05-30-2025 Bilirubin [Mass/Vol] 0.36 mg/dL Normal 0.00-1.30 [facility] Comment on above: Performed By: #### L 3100.3450, L503.0106, L500.4050, L501.9520, L100.0100, L3100.7870, L101.9900 ####[facility] [address] [place], [address] C-reactive protein measureme nt by high sensitivity methodOrdered By: Teo Veronica on 05-30-2025 C-reactive protein measurement by high sensitivity method 0.24 mg/L 0.00-3.00 [facility] Comment on above: Relative Risk for Fu ture Cardiovascular Event Low <1.00 Average 1.00 - 3.00 High >3.00Performed at: [facility] [id number] Director: Virgil Bolanos PhD, Phone: [phone] CBC W/Diff, Automatedon 05-20 Absolute Lymph 1.88 X10 3/uL Normal 0.83-4.51 [facility] Comment on above: Performed By: #### L 3100.3450, L503.0106, L500.4050, L501.9520, L100.0100, L3100.7870, L101.9900 ####[facility] [address] [place], [address] Absolute Neut 3.3 X10 3/uL Normal 2.0-7.7 [facility] [facility] Comment on above: Performed By: #### L 3100.3450, L503.0106, L500.4050, L501.9520, L100.0100, L3100.7870, L101.9900 ####[facility] [address] [place], [address] Basophils/100 WBC (Bld) 0.5 % Normal 0-1 [facility] Comment on above: Performed By: #### L 3100.3450, L503.0106, L500.4050, L501.9520, L100.0100, L3100.7870, L101.9900 ####[facility] [address] [place], [address] Eosinophils/100 WBC (Bld) 3.9 % Normal 0-5 [facility] Comment on above: Performed By: #### L 3100.3450, L503.0106, L500.4050, L501.9520, L100.0100, L3100.7870, L101.9900 ####[facility] [address] [place], [address] Erythrocyte distribution width (RBC) [Ratio] 12.5 % Normal 11.6-14.6 [facility] Comment on above: Performed By: #### L 3100.3450, L503.0106, L500.4050, L501.9520, L100.0100, L3100.7870, L101.9900 ####[facility] [address] [place], [address] Hematocrit (Bld) [Volume fraction] 34.4 % Low 40-54 [facility] Comment on above: Performed By: #### L 3100.3450, L503.0106, L500.4050, L501.9520, L100.0100, L3100.7870, L101.9900 ####[facility] [address] [place], [address] Hemoglobin (Bld) [Mass/Vol] 11.6 g/dL Low 13.0-16.5 [facility] Comment on above: Performed By: #### L 3100.3450, L503.0106, L500.4050, L501.9520, L100.0100, L3100.7870, L101.9900 ####[facility] [address] [place], [address] IG% 0.300 Normal 0.0-0.9 [facility] Comment on above: Result Comment: IG% - Immature Granulocytes (promyelocytes, myelocytes and metamyelocytes) > 1% indicates that a LEFT SHIFT is Present. Performed By: #### L 3100.3450, L503.0106, L500.4050, L501.9520, L100.0100, L3100.7870, L101.9900 ####[facility] [address] [place], [address] Lymphocytes/100 WBC (Bld) 31.5 % Normal 19-41 [facility] Comment on above: Performed By: #### L 3100.3450, L503.0106, L500.4050, L501.9520, L100.0100, L3100.7870, L101.9900 ####[facility] [address] [place], [address] MCH (RBC) [Entitic mass] 32.0 pg Normal 27.0-32.0 [facility] Comment on above: Performed By: #### L 3100.3450, L503.0106, L500.4050, L501.9520, L100.0100, L3100.7870, L101.9900 ####[facility] [address] [place], [address] MCHC (RBC) [Mass/Vol] 33.7 g/dL Normal 32-36 [facility] Comment on above: Performed By: #### L 3100.3450, L503.0106, L500.4050, L501.9520, L100.0100, L3100.7870, L101.9900 ####[facility] [address] [place], [address] MCV (RBC) [Entitic vol] 94.8 fL High 80-94 [facility] Comment on above: Performed By: #### L 3100.3450, L503.0106, L500.4050, L501.9520, L100.0100, L3100.7870, L101.9900 ####[facility] [address] [place], [address] Monocytes/100 WBC (Bld) 8.0 % Normal 0-10 [facility] Comment on above: Performed By: #### L 3100.3450, L503.0106, L500.4050, L501.9520, L100.0100, L3100.7870, L101.9900 ####[facility] [address] [place], [address] Neutrophils/100 WBC (Bld) 55.8 % Normal 47-70 [facility] Comment on above: Performed By: #### L 3100.3450, L503.0106, L500.4050, L501.9520, L100.0100, L3100.7870, L101.9900 ####[facility] [address] [place], [address] Nucleated RBC (Bld) [#/Vol] 0 10*3/uL Normal 0-5 [facility] Comment on above: Performed By: #### L 3100.3450, L503.0106, L500.4050, L501.9520, L100.0100, L3100.7870, L101.9900 ####[facility] [address] [place], [address] Platelet mean volume (Bld) [Entitic vol] 9.9 fL Normal 6.2-12.0 [facility] Comment on above: Performed By: #### L 3100.3450, L503.0106, L500.4050, L501.9520, L100.0100, L3100.7870, L101.9900 ####[facility] [address] [place], [address] Platelets (Bld) [#/Vol] 193 10*3/uL Normal 150-450 [facility] Comment on above: Performed By: #### L 3100.3450, L503.0106, L500.4050, L501.9520, L100.0100, L3100.7870, L101.9900 ####[facility] [address] [place], [address] RBC (Bld) [#/Vol] 3.63 10*6/uL Low 4.6-6.2 [facility] Comment on above: Performed By: #### L 3100.3450, L503.0106, L500.4050, L501.9520, L100.0100, L3100.7870, L101.9900 ####[facility] [address] [place], [address] RDW SD 43.7 fl Normal 35.1-43.9 [facility] Comment on above: Performed By: #### L 3100.3450, L503.0106, L500.4050, L501.9520, L100.0100, L3100.7870, L101.9900 ####[facility] [address] [place], [address] WBC (Bld) [#/Vol] 6.0 10*3/uL Normal 4.4-11.0 [facility] Comment on above: Performed By: #### L 3100.3450, L503.0106, L500.4050, L501.9520, L100.0100, L3100.7870, L101.9900 ####[facility] [address] [place], [address] Carbon dioxide, total [Moles /volume] in Central venous bloodOrdered By: Teo Veronica on 05-30-2025 CO2 [Moles/Vol] 23.4 mmol/L Normal 21.0-32.0 [facility] Comment on above: Performed By: #### L 3100.3450, L503.0106, L500.4050, L501.9520, L100.0100, L3100.7870, L101.9900 ####[facility] [address] [place], [address] Chloride assayOrdered By: Baudilio Veronica on 05-30-2025 Chloride [Moles/Vol] 103 mmol/L Normal 98-108 [facility] Comment on above: Performed By: #### L 3100.3450, L503.0106, L500.4050, L501.9520, L100.0100, L3100.7870, L101.9900 ####[facility] [address] [place], [place], [phone] Comprehensive Metabolic Prof ilon 05-30-2025 ALK PHOS 64 U/L Normal 40-129 [facility] Comment on above: Performed By: #### L 3100.3450, L503.0106, L500.4050, L501.9520, L100.0100, L3100.7870, L101.9900 ####[facility] [address] [place], [place], [address](218) BUN/CRE 13.8 RATIO Normal 10-20 [facility] Comment on above: Performed By: #### L 3100.3450, L503.0106, L500.4050, L501.9520, L100.0100, L3100.7870, L101.9900 ####[facility] [address] [place], [address] GAP 12 Normal 5-15 [facility] Comment on above: Performed By: #### L 3100.3450, L503.0106, L500.4050, L501.9520, L100.0100, L3100.7870, L101.9900 ####[facility] [address] [place], [place], [phone] Potassium [Moles/Vol] 4.1 mmol/L Normal 3.3-5.1 [facility] Comment on above: Performed By: #### L 3100.3450, L503.0106, L500.4050, L501.9520, L100.0100, L3100.7870, L101.9900 ####[facility] [address] [place], [place], [phone] T PROT 6.7 g/dL Normal 5.9-8.4 [facility] Comment on above: Performed By: #### L 3100.3450, L503.0106, L500.4050, L501.9520, L100.0100, L3100.7870, L101.9900 ####[facility] [address] [place], [address] Comprehensive Metabolic Prof ilOrdered By: Teo Veronica on 05-30-2025 AST [Catalytic activity/Vol] 21 U/L Normal <=37 [facility] Comment on above: Performed By: #### L 3100.3450, L503.0106, L500.4050, L501.9520, L100.0100, L3100.7870, L101.9900 ####[facility] [address] [place], [place], [id number] Eosinophil percentageOrdered By: Teo Veronica on 05-30-2025 Eosinophils/100 WBC (Bld) 3.9 % 0-5 [facility] Erythrocyte Sed Rateon 05-30 SED RATE 9 mm/hr Normal 0-20 [facility] Comment on above: Performed By: #### L 3100.3450, L503.0106, L500.4050, L501.9520, L100.0100, L3100.7870, L101.9900 ####[facility] [address] [place], [address] Erythrocyte distribution wid th ratioOrdered By: [facility] on 05-30-2025 Erythrocyte distribution width (RBC) [Ratio] 12.5 % 11.6-14.6 [facility] Erythrocyte distribution wid th standard deviationOrdered By: [facility] on 05-30-2025 Erythrocyte distribution width (RBC) [Ratio] 43.7 fl 35.1-43.9 [facility] Erythrocyte sedimentation ra teOrdered By: [facility] on 05-30-2025 ESR (Bld) [Velocity] 9 mm/h 0-20 [facility] Glomerular filtration rate ( GFR) estimation/1.73 sq m using serum, plasma, or whole bOrdered By: [facility] on 05-30-2025 GFR/1.73 sq M.predicted among non-blacks MDRD (S/P/Bld) [Vol rate/Area] 38 mL/min/{1.73_m2} Low >60 [facility] Comment on above: mL/min/1.73m2 CKD-EP I Creatinine Equation (2020) Result Comment: mL/m in/1.73m2 CKD-EPI Creatinine Equation (2020) Performed By: #### L 3100.3450, L503.0106, L500.4050, L501.9520, L100.0100, L3100.7870, L101.9900 ####[facility] [address] [place], [address] Hematocrit Auto (Bld) [Volum e fraction]Ordered By: [facility] 05-30-2025 Hematocrit (Bld) [Volume fraction] 34.4 % Low 40-54 [facility] Hemoglobin measurementOrdere d By: [facility] 05-30-2025 Hemoglobin (Bld) [Mass/Vol] 11.6 g/dL Low 13.0-16.5 [facility] Immature granulocytes/100 WB C Auto (Bld)Ordered By: [facility] on 05-30-2025 Immature granulocytes/100 WBC (Bld) 0.300 % 0.0-0.9 [facility] Comment on above: IG% - Immature Granu locytes (promyelocytes, myelocytes and metamyelocytes) > 1% indicates that a LEFT SHIFT is Present. MCV (mean corpuscular volume ) determinationOrdered By: Teo Veronica on 05-30-2025 MCV (RBC) [Entitic vol] 94.8 fL High 80-94 [facility] Mean corpuscular hemoglobin (MCH) determinationOrdered By: Teo Veronica on 05-30-2025 MCH (RBC) [Entitic mass] 32.0 pg 27.0-32.0 [facility] Mean corpuscular hemoglobin concentration (MCHC) determinationOrdered By: Teo Veronica on 05-30-2025 MCHC (RBC) [Mass/Vol] 33.7 g/dL 32-36 [facility] Mean platelet volume determi nationOrdered By: Teo Veronica on 05-30-2025 Platelet mean volume (Bld) [Entitic vol] 9.9 fL 6.2-12.0 [facility] Monocyte percentageOrdered B y: Teo Veronica on 05-30-2025 Monocytes/100 WBC (Bld) 8.0 % 0-10 [facility] Neutrophil percentageOrdered By: Teo Veronica on 05-30-2025 Neutrophils/100 WBC (Bld) 55.8 % 47-70 [facility] No Panel InformationOrdered By: Teo Veronica on 05-30-2025 Addendum Document Comment . [facility] Comment on above: The SPE pattern appe ars unremarkable. Evidence ofmonoclonal protein is not apparent.Performed at: [facility] [id number] Director: Virgil Bolanos PhD, Phone: [phone] Nucleated red blood cell per centageOrdered By: Teo Veronica on 05-30-2025 Nucleated RBC/100 WBC (Bld) [Ratio] 0 % 0-5 [facility] Platelet countOrdered By: Baudilio Veronica on 05-30-2025 Platelets (Bld) [#/Vol] 193 10*3/uL 150-450 [facility] Potassium measurement (mass/ volume)Ordered By: Teo Veronica on 05-30-2025 Potassium (Unsp spec) [Mass/Vol] 4.1 mmol/L 3.3-5.1 [facility] Protein Fractions Elph [Inte rp]Ordered By: Teo Veronica on 05-30-2025 Protein Fractions [Interp] Comment . [facility] Comment on above: Protein electrophore sis scan will follow via computer,mail, or welder apprentice combination delivery. RBC Auto (Bld) [#/Vol]Ordere d By: Teo Veronica on 05-30-2025 RBC (Bld) [#/Vol] 3.63 10*6/uL Low 4.6-6.2 [facility] Serum albumin to globulin ra kari by protein electrophoresisOrdered By: Teo Veronica on 05-30-2025 Albumin/Globulin Elph [Mass ratio] 1.4 0.7-1.7 [facility] Serum creatinine measurement (mass/volume)Ordered By: Teo Veronica on 05-30-2025 Creatinine [Mass/Vol] 1.81 mg/dL High 0.70-1.20 [facility] Comment on above: Performed By: #### L 3100.3450, L503.0106, L500.4050, L501.9520, L100.0100, L3100.7870, L101.9900 ####[facility] [address] [facility] [place], [place], [phone] Serum globulin measurementOr dered By: Teo Veronica on 05-30-2025 Globulin (S) [Mass/Vol] 2.4 g/dL Normal 2.2-4.2 [facility] Comment on above: Performed By: #### L 3100.3450, L503.0106, L500.4050, L501.9520, L100.0100, L3100.7870, L101.9900 ####[facility] [address] [facility] [place], [place], [phone] Serum globulin measurement ( mass/volume)Ordered By: Teo Veronica on 05-30-2025 Globulin (S) [Mass/Vol] 2.6 g/dL 2.2-3.9 [facility] Serum glucose measurement (m ass/volume)Ordered By: Teo Veronica on 05-30-2025 Glucose [Mass/Vol] 146 mg/dL High 70-99 [facility] Comment on above: Performed By: #### L 3100.3450, L503.0106, L500.4050, L501.9520, L100.0100, L3100.7870, L101.9900 ####[facility] [address] [place], [place], [phone] Serum or plasma alanine levi otransferase (ALT) measurementOrdered By: Teo Veronica on 05-30-2025 ALT [Catalytic activity/Vol] 26 U/L Normal <=46 [facility] Comment on above: Performed By: #### L 3100.3450, L503.0106, L500.4050, L501.9520, L100.0100, L3100.7870, L101.9900 ####[facility] [address] [place], [place], [phone]) Serum or plasma albumin aneudy urement (mass/volume)Ordered By: Teo Veronica on 05-30-2025 Albumin [Mass/Vol] 4.3 g/dL Normal 3.4-4.8 [facility] Comment on above: Performed By: #### L 3100.3450, L503.0106, L500.4050, L501.9520, L100.0100, L3100.7870, L101.9900 ####[facility] [address] [place], [place], [phone](227) Serum or plasma albumin/glob ulin mass ratioOrdered By: Teo Veronica 05-30-2025 Albumin/Globulin [Mass ratio] 1.8 {ratio} Normal 0.9-2.4 [facility] Comment on above: Performed By: #### L 3100.3450, L503.0106, L500.4050, L501.9520, L100.0100, L3100.7870, L101.9900 ####[facility] [address] [place], [place], [phone]) Serum or plasma alkaline jasvir sphatase measurementOrdered By: Teo Veronica on 05-30-2025 ALP [Catalytic activity/Vol] 64 U/L 40-129 [facility] Serum or plasma beta globuli n measurement by electrophoresis (mass/volume)Ordered By: Teo Adonis on 05-30-2025 Beta globulin Elph [Mass/Vol] 1.0 g/dL 0.7-1.3 [facility] Serum or plasma calcium aneudy urement (mass/volume)Ordered By: Teo Adonis on 05-30-2025 Calcium [Mass/Vol] 9.1 mg/dL Normal 7.6-11.0 [facility] Comment on above: Performed By: #### L 3100.3450, L503.0106, L500.4050, L501.9520, L100.0100, L3100.7870, L101.9900 ####[facility] [address] [place], [place], [phone] Serum or plasma protein aneudy urement (mass/volume)Ordered By: Teo Veronica on 05-30-2025 Protein [Mass/Vol] 6.3 g/dL 6.0-8.5 [facility] Serum or plasma protein mono clonal measurement by electrophoresis (mass/volume)Ordered By: Teo Veronica on 05-30-2025 Protein.monoclonal Elph [Mass/Vol] Not Observed g/dL Not Observed [facility] Serum or plasma urea nitroge n measurement (mass/volume)Ordered By: Teo Adonis on 05-30-2025 Urea nitrogen [Mass/Vol] 25 mg/dL High 4-19 [facility] Comment on above: Performed By: #### L 3100.3450, L503.0106, L500.4050, L501.9520, L100.0100, L3100.7870, L101.9900 ####[facility] [address] [place], [address] Sodium levelOrdered By: Teo Veronica on 05-30-2025 Sodium [Moles/Vol] 139 mmol/L Normal 133-145 [facility] Comment on above: Performed By: #### L 3100.3450, L503.0106, L500.4050, L501.9520, L100.0100, L3100.7870, L101.9900 ####[facility] [address] [place], [place], [phone] TSH DL <= 0.005 mIU/L QnOrde red By: Teo Veronica on 05-30-2025 TSH Qn 1.720 uIU/mL 0.300-4.200 [facility] Thyroid Stim Hormone (TSH)on 05-30-2025 TSH 1.720 uIU/mL Normal 0.300-4.200 [facility] Comment on above: Performed By: #### L 3100.3450, L503.0106, L500.4050, L501.9520, L100.0100, L3100.7870, L101.9900 ####[facility] [address] [place], [place], [phone] Total proteinOrdered By: Teo Veronica on 05-30-2025 Protein [Mass/Vol] 6.7 g/dL 5.9-8.4 [facility] Vitamin B12 ser/plasOrdered By: Teo Veronica on 05-30-2025 Cobalamin (Vitamin B12) [Mass/Vol] 619 pg/mL Normal 180-914 [facility] Comment on above: Performed By: #### L 3100.3450, L503.0106, L500.4050, L501.9520, L100.0100, L3100.7870, L101.9900 ####[facility] [address] [place], [place], [address] White blood cell (WBC) count Ordered By: Teo Veronica on 05-30-2025 WBC (Bld) [#/Vol] 6.0 10*3/uL 4.4-11.0 [facility] Influenza virus A and B and SARS-CoV-2 (COVID-19) and Respiratory syncytial virus RNAOrdered By: Teo Veronica on 05-09-2025 SARS-CoV-2 (COVID-19) RNA VALDO+probe Ql (Unsp spec) [facility] M100.678on 05-09-2025 M100.678 Pending SARS-CoV-2 (COVID 19) Negative INFLUENZA A Negative INFLUENZA B Negative RSV PCR Negative Normal [facility] Comment on above: Performed By: #### M 100.678 #### [facility] [address] [place], [address] Absolute lymphocyte countOrd ered By: Teo Veronica on 03-30-2025 Lymphocytes Auto (Unsp spec) [#/Vol] 1.99 10*3/uL 0.83-4.51 [facility] Absolute neutrophil countOrd ered By: [facility] Neutrophils (Bld) [#/Vol] 3.4 10*3/uL 2.0-7.7 [facility] Anion gap in Serum or Plasma Ordered By: Teo Veronica on 03-30-2025 Anion gap [Moles/Vol] 11 mmol/L 5-15 [facility] Automated lymphocyte count a s percentage of total leukocytesOrdered By: Teo Veronica on 03-30-2025 Lymphocytes/100 WBC Auto (Unsp spec) 32.1 % 19- [facility] BUN/creatinine ratioOrdered By: [facility] 03-30-2025 Urea nitrogen/Creatinine [Mass ratio] 16.2 mg/mg 10-20 [facility] Basophil percentageOrdered B y: Teo Veronica on 03-30-2025 Basophils/100 WBC (Bld) 0.5 % 0-1 [facility] Bilirubin, totalOrdered By: Teo Veronica on 03-30-2025 Bilirubin [Mass/Vol] 0.22 mg/dL 0.00-1.30 [facility] CBC W/Diff, Automatedon 03-20 Absolute Lymph 1.99 X10 3/uL Normal 0.83-4.51 [facility] Comment on above: Performed By: #### L 506.1001, L501.9520, L500.4050, L100.0100 #### [facility] [address] [place], [address] Absolute Neut 3.4 X10 3/uL Normal 2.0-7.7 [facility] Comment on above: Performed By: #### L 506.1001, L501.9520, L500.4050, L100.0100 #### [facility] [address] [place], [address] Basophils/100 WBC (Bld) 0.5 % Normal 0-1 [facility] Comment on above: Performed By: #### L 506.1001, L501.9520, L500.4050, L100.0100 #### [facility] [address] [place], [address] Eosinophils/100 WBC (Bld) 4.5 % Normal 0-5 [facility] Comment on above: Performed By: #### L 506.1001, L501.9520, L500.4050, L100.0100 #### [facility] [address] [place], [address] Erythrocyte distribution width (RBC) [Ratio] 12.6 % Normal 11.6-14.6 [facility] Comment on above: Performed By: #### L 506.1001, L501.9520, L500.4050, L100.0100 #### [facility] [address] [place], [address] Hematocrit (Bld) [Volume fraction] 35.9 % Low 40-54 [facility] Comment on above: Performed By: #### L 506.1001, L501.9520, L500.4050, L100.0100 #### [facility] [address] [place], [address] Hemoglobin (Bld) [Mass/Vol] 12.2 g/dL Low 13.0-16.5 [facility] Comment on above: Performed By: #### L 506.1001, L501.9520, L500.4050, L100.0100 #### [facility] [address] [place], [address] IG% 0.200 Normal 0.0-0.9 [facility] Comment on above: Result Comment: IG% - Immature Granulocytes (promyelocytes, myelocytes and metamyelocytes) > 1% indicates that a LEFT SHIFT is Present. Performed By: #### L 506.1001, L501.9520, L500.4050, L100.0100 #### [facility] [address] [place], [address] Lymphocytes/100 WBC (Bld) 32.1 % Normal 19-41 [facility] Comment on above: Performed By: #### L 506.1001, L501.9520, L500.4050, L100.0100 #### [facility] [address] [place], [address] MCH (RBC) [Entitic mass] 31.8 pg Normal 27.0-32.0 [facility] Comment on above: Performed By: #### L 506.1001, L501.9520, L500.4050, L100.0100 #### [facility] [address] [place], [address] MCHC (RBC) [Mass/Vol] 34.0 g/dL Normal 32-36 [facility] Comment on above: Performed By: #### L 506.1001, L501.9520, L500.4050, L100.0100 #### [facility] [address] [place], [address] MCV (RBC) [Entitic vol] 93.5 fL Normal 80-94 [facility] Comment on above: Performed By: #### L 506.1001, L501.9520, L500.4050, L100.0100 #### [facility] [address] [place], [address] Monocytes/100 WBC (Bld) 8.2 % Normal 0-10 [facility] Comment on above: Performed By: #### L 506.1001, L501.9520, L500.4050, L100.0100 #### [facility] [address] [place], [address] Neutrophils/100 WBC (Bld) 54.5 % Normal 47-70 [facility] Comment on above: Performed By: #### L 506.1001, [id number], L500.4050, L100.0100 #### [facility] [address] [place], [address] Nucleated RBC (Bld) [#/Vol] 0 10*3/uL Normal 0-5 [facility] Comment on above: Performed By: #### L 506.1001, [id number], L500.4050, L100.0100 #### [facility] [address] [place], [address] Platelet mean volume (Bld) [Entitic vol] 9.4 fL Normal 6.2-12.0 [facility] [facility] Comment on above: Performed By: #### L 506.1001, L501.9520, L500.4050, L100.0100 #### [facility] [address] [place], [address] Platelets (Bld) [#/Vol] 183 10*3/uL Normal 150-450 [facility] Comment on above: Performed By: #### L 506.1001, L501.9520, L500.4050, L100.0100 #### [facility] [address] [place], [address] RBC (Bld) [#/Vol] 3.84 10*6/uL Low 4.6-6.2 [facility] Comment on above: Performed By: #### L 506.1001, L501.9520, L500.4050, L100.0100 #### [facility] [address] [place], [address] RDW SD 43.3 fl Normal 35.1-43.9 [facility] Comment on above: Performed By: #### L 506.1001, L501.9520, L500.4050, L100.0100 #### [facility] [address] [place], [address] WBC (Bld) [#/Vol] 6.2 10*3/uL Normal 4.4-11.0 [facility] Comment on above: Performed By: #### L 506.1001, L501.9520, L500.4050, L100.0100 #### [facility] [address] [place], [address] Carbon dioxide, total [Moles /volume] in Central venous bloodOrdered By: Teo Veronica on 03-30-2025 CO2 [Moles/Vol] 24.0 mmol/L 21.0-32.0 [facility] Chloride assayOrdered By: Baudiilo Veronica on 03-30-2025 Chloride [Moles/Vol] 104 mmol/L 98-108 [facility] Comprehensive Metabolic Prof ilon 03-30-2025 Albumin [Mass/Vol] 4.5 g/dL Normal 3.4-4.8 [facility] Comment on above: Performed By: #### L 506.1001, L501.9520, L500.4050, L100.0100 #### [facility] [address] [place], [address] Albumin/Globulin [Mass ratio] 1.7 {ratio} Normal 0.9-2.4 [facility] Comment on above: Performed By: #### L 506.1001, L501.9520, L500.4050, L100.0100 #### [facility] [address] [place], [address] ALK PHOS 75 U/L Normal 40-129 [facility] Comment on above: Performed By: #### L 506.1001, L501.9520, L500.4050, L100.0100 #### [facility] [address] [place], [address] ALT [Catalytic activity/Vol] 30 U/L Normal <=46 [facility] Comment on above: Performed By: #### L 506.1001, L501.9520, L500.4050, L100.0100 #### [facility] [address] [place], [address] AST [Catalytic activity/Vol] 25 U/L Normal <=37 [facility] Comment on above: Performed By: #### L 506.1001, L501.9520, L500.4050, L100.0100 #### [facility] [address] [place], [address] Bilirubin [Mass/Vol] 0.22 mg/dL Normal 0.00-1.30 [facility] Comment on above: Performed By: #### L 506.1001, L501.9520, L500.4050, L100.0100 #### [facility] [address] [place], [address] BUN/CRE 16.2 RATIO Normal 10-20 [facility] Comment on above: Performed By: #### L 506.1001, L501.9520, L500.4050, L100.0100 #### [facility] [address] [place], [address] Calcium [Mass/Vol] 9.0 mg/dL Normal 7.6-11.0 [facility] Comment on above: Performed By: #### L 506.1001, L501.9520, L500.4050, L100.0100 #### [facility] [address] [place], [address] Chloride [Moles/Vol] 104 mmol/L Normal 98-108 [facility] Comment on above: Performed By: #### L 506.1001, L501.9520, L500.4050, L100.0100 #### [facility] [address] [place], [address] CO2 [Moles/Vol] 24.0 mmol/L Normal 21.0-32.0 [facility] Comment on above: Performed By: #### L 506.1001, L501.9520, L500.4050, L100.0100 #### [facility] [address] [place], [address] Creatinine [Mass/Vol] 1.34 mg/dL High 0.70-1.20 [facility] Comment on above: Performed By: #### L 506.1001, L501.9520, L500.4050, L100.0100 #### [facility] [address] [place], [address] GAP 11 Normal 5-15 [facility] Comment on above: Performed By: #### L 506.1001, L501.9520, L500.4050, L100.0100 #### [facility] [address] [place], [address] GFR/1.73 sq M.predicted among non-blacks MDRD (S/P/Bld) [Vol rate/Area] 54 mL/min/{1.73_m2} Low >60 [facility] Comment on above: Result Comment: mL/m in/1.73m2 CKD-EPI Creatinine Equation (2020) Performed By: #### L 506.1001, L501.9520, L500.4050, L100.0100 #### [facility] [address] [place], [address] Globulin (S) [Mass/Vol] 2.6 g/dL Normal 2.2-4.2 [facility] Comment on above: Performed By: #### L 506.1001, L501.9520, L500.4050, L100.0100 #### [facility] [address] [place], [address] Glucose [Mass/Vol] 112 mg/dL High 70-99 [facility] Comment on above: Performed By: #### L 506.1001, L501.9520, L500.4050, L100.0100 #### [facility] [address] [place], [address] Potassium [Moles/Vol] 4.5 mmol/L Normal 3.3-5.1 [facility] Comment on above: Performed By: #### L 506.1001, L501.9520, L500.4050, L100.0100 #### [facility] [address] [place], [address] Sodium [Moles/Vol] 139 mmol/L Normal 133-145 [facility] Comment on above: Performed By: #### L 506.1001, L501.9520, L500.4050, L100.0100 #### [facility] [address] [place], [address] T PROT 7.1 g/dL Normal 5.9-8.4 [facility] Comment on above: Performed By: #### L 506.1001, L501.9520, L500.4050, L100.0100 #### [facility] [address] [place], [address] Urea nitrogen [Mass/Vol] 22 mg/dL High 4-19 [facility] Comment on above: Performed By: #### L 506.1001, L501.9520, L500.4050, L100.0100 #### [facility] [address] [place], [address] Eosinophil percentageOrdered By: Teo Veronica on 03-30-2025 Eosinophils/100 WBC (Bld) 4.5 % 0-5 [facility] Erythrocyte distribution wid th ratioOrdered By: [facility] on 03-30-2025 Erythrocyte distribution width (RBC) [Ratio] 12.6 % 11.6-14.6 [facility] Erythrocyte distribution wid th standard deviationOrdered By: [facility] 03-30-2025 Erythrocyte distribution width (RBC) [Ratio] 43.3 fl 35.1-43.9 [facility] Glomerular filtration rate ( GFR) estimation/1.73 sq m using serum, plasma, or whole bOrdered By: [facility] on 03-30-2025 GFR/1.73 sq M.predicted among non-blacks MDRD (S/P/Bld) [Vol rate/Area] 54 mL/min/{1.73_m2} Low >60 [facility] Comment on above: mL/min/1.73m2 CKD-EP I Creatinine Equation (2020) Hematocrit Auto (Bld) [Volum e fraction]Ordered By: [facility] 03-30-2025 Hematocrit (Bld) [Volume fraction] 35.9 % Low 40-54 [facility] Hemoglobin measurementOrdere d By: [facility] 03-30-2025 Hemoglobin (Bld) [Mass/Vol] 12.2 g/dL Low 13.0-16.5 [facility] Immature granulocytes/100 WB C Auto (Bld)Ordered By: [facility] 03-30-2025 Immature granulocytes/100 WBC (Bld) 0.200 % 0.0-0.9 [facility] Comment on above: IG% - Immature Granu locytes (promyelocytes, myelocytes and metamyelocytes) > 1% indicates that a LEFT SHIFT is Present. Laboratory - Chemistry and C hemistry - challengeOrdered By: [facility] 03-30-2025 AST [Catalytic activity/Vol] 25 U/L <38 [facility] MCV (mean corpuscular volume ) determinationOrdered By: [facility] 03-30-2025 MCV (RBC) [Entitic vol] 93.5 fL 80-94 [facility] Mean corpuscular hemoglobin (MCH) determinationOrdered By: [facility] 03-30-2025 MCH (RBC) [Entitic mass] 31.8 pg 27.0-32.0 [facility] Mean corpuscular hemoglobin concentration (MCHC) determinationOrdered By: Teo Veronica on 03-30-2025 MCHC (RBC) [Mass/Vol] 34.0 g/dL 32-36 [facility] Mean platelet volume determi nationOrdered By: Teo Veronica on 03-30-2025 Platelet mean volume (Bld) [Entitic vol] 9.4 fL 6.2-12.0 [facility] Monocyte percentageOrdered B y: Teo Veronica on 03-30-2025 Monocytes/100 WBC (Bld) 8.2 % 0-10 [facility] Neutrophil percentageOrdered By: Teo Veronica on 03-30-2025 Neutrophils/100 WBC (Bld) 54.5 % 47-70 [facility] Nucleated red blood cell per centageOrdered By: Teo Veronica on 03-30-2025 Nucleated RBC/100 WBC (Bld) [Ratio] 0 % 0-5 [facility] Platelet countOrdered By: Baudilio Veronica on 03-30-2025 Platelets (Bld) [#/Vol] 183 10*3/uL 150-450 [facility] Potassium measurement (mass/ volume)Ordered By: Teo Veronica on 03-30-2025 Potassium (Unsp spec) [Mass/Vol] 4.5 mmol/L 3.3-5.1 [facility] RBC Auto (Bld) [#/Vol]Ordere d By: Teo Veronica on 03-30-2025 RBC (Bld) [#/Vol] 3.84 10*6/uL Low 4.6-6.2 [facility] Serum creatinine measurement (mass/volume)Ordered By: Teo Veronica on 03-30-2025 Creatinine [Mass/Vol] 1.34 mg/dL High 0.70-1.20 [facility] Serum globulin measurementOr dered By: Teo Veronica 03-30-2025 Globulin (S) [Mass/Vol] 2.6 g/dL 2.2-4.2 [facility] Serum glucose measurement (m ass/volume)Ordered By: Teo Veronica on 03-30-2025 Glucose [Mass/Vol] 112 mg/dL High 70-99 [facility] Serum or plasma alanine levi otransferase (ALT) measurementOrdered By: Teo Veronica on 03-30-2025 ALT [Catalytic activity/Vol] 30 U/L <47 [facility] Serum or plasma albumin aneudy urement (mass/volume)Ordered By: Teo Veronica on 03-30-2025 Albumin [Mass/Vol] 4.5 g/dL 3.4-4.8 [facility] Serum or plasma albumin/glob ulin mass ratioOrdered By: Teo Veronica on 03-30-2025 Albumin/Globulin [Mass ratio] 1.7 {ratio} 0.9-2.4 [facility] Serum or plasma alkaline jasvir sphatase measurementOrdered By: Teo Veronica on 03-30-2025 ALP [Catalytic activity/Vol] 75 U/L 40-129 [facility] Serum or plasma calcium aneudy urement (mass/volume)Ordered By: Teo Veronica on 03-30-2025 Calcium [Mass/Vol] 9.0 mg/dL 7.6-11.0 [facility] Serum or plasma urea nitroge n measurement (mass/volume)Ordered By: Teo Veronica on 03-30-2025 Urea nitrogen [Mass/Vol] 22 mg/dL High 4-19 [facility] Sodium levelOrdered By: Teo Veronica on 03-30-2025 Sodium [Moles/Vol] 139 mmol/L 133-145 [facility] TSH DL <= 0.005 mIU/L QnOrde red By: Teo Veronica on 03-30-2025 TSH Qn 3.150 uIU/mL 0.300-4.200 [facility] Thyroid Stim Hormone (TSH)on 03-30-2025 TSH 3.150 uIU/mL Normal 0.300-4.200 [facility] Comment on above: Performed By: #### L 506.1001, L501.9552, L500.4050, L100.0100 #### [facility] [address] [place], [address] Total proteinOrdered By: Teo Veronica on 03-30-2025 Protein [Mass/Vol] 7.1 g/dL 5.9-8.4 [facility] Vitamin D,25 Hydroxyon 03-30 Vitamin D 25-OH 32.6 ng/mL Normal 30-100 [facility] Comment on above: Result Comment: Brianna min D Status Deficiency: <20 ng/mL (50nmol/L) Insufficiency: 20-30 ng/mL (50-75 nmol/L) Sufficiency: 30-100 ng/mL (75-250 nmol/L) Toxicity: >100 ng/mL (>250 nmol/L) Performed By: #### L 506.1001, L501.9520, L500.4050, L100.0100 #### [facility] [address] [place], [address] White blood cell (WBC) count Ordered By: Teo Veronica on 03-30-2025 WBC (Bld) [#/Vol] 6.2 10*3/uL 4.4-11.0 [facility] Cardiology Visit Reporton Cardiology Visit Report [facility] [address] [place] [address] OFFICE VISIT Date of Service: 01/27/25 MR#: [id number] Acct: [id number] Name: ERROL RIVERA Rep #: [id number] : 1945 Provider: JESSICA alfaro Age/Sex: 79/M Location: [facility] Status: Signed HPI HPI History of Present [...] 95 Intake Visit Reasons: 1 Y FU Visual Coordinator Required: No Is patient in pain?: No Allergies No Known Allergies Allergy (Verified 01/27/25 10:11) Medications ???Medication ???Instructions ???Recorded ???Confirmed ???Type glucosamine-chondro [id number] 1 tab PO BID SUPPLEMENT 10/10/17 01/27/25 History 750 mg-100 mg-125 mg-1.65 mg tablet (Glucosamine Chondroit Complx Advan) omeprazole 20 mg capsule,delayed 20 mg PO BID GERD 04/08/18 5 History release albuterol sulfate 90 mcg/actuation 1 - 2 puff inhalation Q6H PRN GA N 06/20/18 01/27/25 History aerosol inhaler Wheezing aspirin 81 mg tablet,delayed 81 mg PO DAILY 12/08/18 01/27/25 H istory release (Adult Low Dose Aspirin) loratadine 10 mg tablet (Claritin) 10 mg PO QDAY PRN ALLERGIES 11/2001/27/25 History cilostazol 100 mg tablet 100 mg PO .QD PAD 09/01/20 5 History levothyroxine 25 mcg tablet 25 mcg PO DAILY 09/01/20 01/27/25 History abpkptmc-bp-ojsby 300 mcg-K 60 1 tab PO DAILY 04/18/21 01/27/25 H istory mcg-lycop 600 mcg-lutein 300 mcg tablet (Centrum Silver Men) tamsulosin 0.4 mg capsule 0.4 mg PO QHS 09/11/21 01/27/25 Hi story omega-3 fatty acids 1,000 mg 1,000 mg PO BID SUPPLEMENT 3 01/27/25 History capsule (Super Kelayres-3) enalapril maleate 20 mg tablet 20 mg [...] oly not wish to carry a list, [facility] Medical History (Reviewed 01/27/25 @ 10:11 by Lois Doll [employer], [employer]ST[employer]ER-C) History of ischemic stroke Encounter for screening [...] wall 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 Normal [facility] CBC W/Diff, Automatedon 09-20 Absolute Lymph 1.90 X10 3/uL Normal 0.83-4.51 [facility] Comment on above: Performed By: #### L 506.1000, L501.9520, L100.0100, L500.4050 #### [facility] [address] [place], [address] Absolute Neut 3.8 X10 3/uL Normal 2.0-7.7 [facility] Comment on above: Performed By: #### L 506.1000, L501.9520, L100.0100, L500.4050 #### [facility] [address] [place], [address] Basophils/100 WBC (Bld) 0.4 % Normal 0-1 [facility] Comment on above: Performed By: #### L 506.1000, L501.9520, L100.0100, L500.4050 #### [facility] [address] [place], [address] Eosinophils/100 WBC (Bld) 6.8 % High 0-5 [facility] Comment on above: Performed By: #### L 506.1000, L501.9520, L100.0100, L500.4050 #### [facility] [address] [place], [address] Erythrocyte distribution width (RBC) [Ratio] 12.0 % Normal 11.6-14.6 [facility] Comment on above: Performed By: #### L 506.1000, L501.9520, L100.0100, L500.4050 #### [facility] [address] [place], [address] Hematocrit (Bld) [Volume fraction] 42.3 % Normal 40-54 [facility] Comment on above: Performed By: #### L 506.1000, L501.9520, L100.0100, L500.4050 #### [facility] [address] [place], [address] Hemoglobin (Bld) [Mass/Vol] 14.3 g/dL Normal 13.0-16.5 [facility] Comment on above: Performed By: #### L 506.1000, L501.9520, L100.0100, L500.4050 #### [facility] [address] [place], [address] IG% 0.100 Normal 0.0-0.9 [facility] Comment on above: Result Comment: IG% - Immature Granulocytes (promyelocytes, myelocytes and metamyelocytes) > 1% indicates that a LEFT SHIFT is Present. Performed By: #### L 506.1000, L501.9520, L100.0100, L500.4050 #### [facility] [address] [place], [address] Lymphocytes/100 WBC (Bld) 27.6 % Normal 19-41 [facility] Comment on above: Performed By: #### L 506.1000, L501.9520, L100.0100, L500.4050 #### [facility] [address] [place], [address] MCH (RBC) [Entitic mass] 31.4 pg Normal 27.0-32.0 [facility] Comment on above: Performed By: #### L 506.1000, L501.9520, L100.0100, L500.4050 #### [facility] [address] [place], [address] MCHC (RBC) [Mass/Vol] 33.8 g/dL Normal 32-36 [facility] Comment on above: Performed By: #### L 506.1000, L501.9520, L100.0100, L500.4050 #### [facility] [address] [place], [address] MCV (RBC) [Entitic vol] 93.0 fL Normal 80-94 [facility] Comment on above: Performed By: #### L 506.1000, L501.9520, L100.0100, L500.4050 #### [facility] [address] [place], [address] Monocytes/100 WBC (Bld) 10.0 % Normal 0-10 [facility] Comment on above: Performed By: #### L 506.1000, L501.9520, L100.0100, L500.4050 #### [facility] [address] [place], [address] Neutrophils/100 WBC (Bld) 55.1 % Normal 47-70 [facility] Comment on above: Performed By: #### L 506.1000, L501.9520, L100.0100, L500.4050 #### [facility] [address] [place], [address] Nucleated RBC (Bld) [#/Vol] 0 10*3/uL Normal 0-5 [facility] Comment on above: Performed By: #### L 506.1000, L501.9520, L100.0100, L500.4050 #### [facility] [address] [place], [address] Platelet mean volume (Bld) [Entitic vol] 9.9 fL Normal 6.2-12.0 [facility] Comment on above: Performed By: #### L 506.1000, L501.9520, L100.0100, L500.4050 #### [facility] [address] [place], [address] Platelets (Bld) [#/Vol] 199 10*3/uL Normal 150-450 [facility] Comment on above: Performed By: #### L 506.1000, L501.9520, L100.0100, L500.4050 #### [facility] [address] [place], [address] RBC (Bld) [#/Vol] 4.55 10*6/uL Low 4.6-6.2 [facility] Comment on above: Performed By: #### L 506.1000, L501.9520, L100.0100, L500.4050 #### [facility] [address] [place], [address] RDW SD 41.1 fl Normal 35.1-43.9 [facility] Comment on above: Performed By: #### L 506.1000, L501.9520, L100.0100, L500.4050 #### [facility] [address] [place], [address] WBC (Bld) [#/Vol] 6.9 10*3/uL Normal 4.4-11.0 [facility] Comment on above: Performed By: #### L 506.1000, L501.9520, L100.0100, L500.4050 #### [facility] [address] [place], [address] Comprehensive Metabolic [facility] 10-11-2024 Albumin [Mass/Vol] 3.7 g/dL Normal 3.2-5.0 [facility] Comment on above: Performed By: #### L 506.1000, L501.9520, L100.0100, L500.4050 ####[facility] [address] [place], [address] Albumin/Globulin [Mass ratio] 1.0 {ratio} Normal 0.9-2.4 [facility] Comment on above: Performed By: #### L 506.1000, L501.9520, L100.0100, L500.4050 ####[facility] [address] [place], [address] ALK P 71 U/L Normal 45-117 [facility] Comment on above: Performed By: #### L 506.1000, L501.9520, L100.0100, L500.4050 ####[facility] [address] [place], [address] ALT [Catalytic activity/Vol] 28 U/L Normal 16-61 [facility] Comment on above: Performed By: #### L 506.1000, L501.9520, L100.0100, L500.4050 ####[facility] [address] [place], [address] AST [Catalytic activity/Vol] 17 U/L Normal 15-37 [facility] Comment on above: Performed By: #### L 506.1000, L501.9520, L100.0100, L500.4050 ####[facility] [address] [place], [address] Bilirubin [Mass/Vol] 0.50 mg/dL Normal 0.20-1.00 [facility] Comment on above: Result Comment: For patients on eltrombopag therapy, use of Dimension [place] TBIL is not recommended. Performed By: #### L 506.1000, L501.9520, L100.0100, L500.4050 ####[facility] [address] [place], [address] BUN/CRE 14.5 RATIO Normal 10-20 [facility] Comment on above: Performed By: #### L 506.1000, L501.9520, L100.0100, L500.4050 ####[facility] [address] [place], [address] CA,Total 9.4 mg/dL Normal 8.5-10.1 [facility] Comment on above: Performed By: #### L 506.1000, L501.9520, L100.0100, L500.4050 ####[facility] [address] [place], [address] Chloride [Moles/Vol] 103 mmol/L Normal 98-107 [facility] Comment on above: Performed By: #### L 506.1000, L501.9520, L100.0100, L500.4050 ####[facility] [address] [place], [address] CO2 [Moles/Vol] 30.0 mmol/L Normal 21.0-32.0 [facility] Comment on above: Performed By: #### L 506.1000, L501.9520, L100.0100, L500.4050 ####[facility] [address] [place], [address] Creatinine [Mass/Vol] 1.17 mg/dL Normal 0.70-1.30 [facility] Comment on above: Result Comment: The validity of the calculated GFR GFRAA in patients over 70 years has not been determined. Clinical correlation is essential. Performed By: #### L 506.1000, L501.9520, L100.0100, L500.4050 ####[facility] [address] [place], [address] EST GFR - AA 78 mL/min Normal >60 [facility] Comment on above: Result Comment: Afri can Bulgarian GFR Calc Performed By: #### L 506.1000, L501.9520, L100.0100, L500.4050 ####[facility] [address] [place], [address] GAP 6 Normal 5-15 [facility] Comment on above: Performed By: #### L 506.1000, L501.9520, L100.0100, L500.4050 ####[facility] [address] [place], [address] GFR/1.73 sq M.predicted among non-blacks MDRD (S/P/Bld) [Vol rate/Area] 64 mL/min/{1.73_m2} Normal >60 [facility] Comment on above: Result Comment: Non- GFR Calc Performed By: #### L 506.1000, L501.9520, L100.0100, L500.4050 ####[facility] [id number] [place], [address] Globulin (S) [Mass/Vol] 3.7 g/dL Normal 2.2-4.2 [facility] Comment on above: Performed By: #### L 506.1000, L501.9520, L100.0100, L500.4050 ####[facility] [id number] [place], [address] Glucose [Mass/Vol] 107 mg/dL High 74-106 [facility] Comment on above: Result Comment: Fast ing Glucose result from 100 to 125 mg/dL suggests IMPAIRED HOMEOSTASIS per A.D.A. criteria. Performed By: #### L 506.1000, L501.9520, L100.0100, L500.4050 ####[facility] [id number] [place], [address] Potassium [Moles/Vol] 3.7 mmol/L Normal 3.5-5.1 [facility] Comment on above: Performed By: #### L 506.1000, L501.9520, L100.0100, L500.4050 ####[facility] [id number] [place], [address] Sodium [Moles/Vol] 139 mmol/L Normal 136-145 [facility] Comment on above: Performed By: #### L 506.1000, L501.9520, L100.0100, L500.4050 ####[facility] [id number] [place], [address] T PROT 7.4 g/dL Normal 6.4-8.2 [facility] Comment on above: Performed By: #### L 506.1000, L501.9520, L100.0100, L500.4050 ####[facility] [address] [place], [address] Urea nitrogen [Mass/Vol] 17 mg/dL Normal 7-18 [facility] Comment on above: Performed By: #### L 506.1000, L501.9520, L100.0100, L500.4050 ####[facility] [id number] [place], [address] Thyroid Stim Hormone (TSH)on 10-11-2024 TSH 2.210 uIU/mL Normal 0.358-3.740 [facility] Comment on above: Performed By: #### L 506.1000, L501.9520, L100.0100, L500.4050 ####[facility] [id number] [place], [address] Vitamin D,25 Hydroxyon 10-11 Vitamin D 25-OH 30.2 ng/mL Normal [facility] Comment on above: Result Comment: Brianna min D 25(OH) Status Range Deficiency <20 ng/mL (50nmol/L) Insufficiency 20 - 30 ng/mL (50 - 75 nmol/L) Sufficiency 30 - 100 ng/mL (75 - 250 nmol/L) Toxicity >100 ng/mL (>250 nmol/L) Performed By: #### L 506.1000, L501.9520, L100.0100, L500.4050 ####[facility] [id number] [place], [place], [address] Neurology Visit Reporton Neurology Visit Report [facility] [address] [facility], [address] [place], [place] [address] OFFICE VISIT Date of Service: 08/17/24 MR#: [id number] Acct: [id number] Name: ERROL RIVERA Rep #: [id number] : 1945 Provider: Dr. Hank pearl MD Age/Sex: 79/M Location: [facility]. Status: Signed HPI [facility] Chief Complaint: sore throat Details: Interim history: [...] a mild stenosis (less than 50%). Normal koi of [place] without a demonstrated aneurysm or [...] than 50%). (more content not included)... Normal [facility] Pulmonary Visit Reporton Pulmonary Visit Report [facility] Pul[facility] Medicine of [address] [place] [address] OFFICE VISIT Date of Service: 07/05/24 MR#: [id number] Acct: [id number] Name: NICOLEERROL SUAREZ Rep #: [id number] : 1945 Provider: JESSICA Atkins Age/Sex: 79/M Location: [facility].PMW Status: Signed Assessment and Plan Assessment and [...] symptoms in the meantime. 30 minutes spent [id number] discussing with the patient today. He was [...] unspecified Plan Details Follow Up: 6 Months ([facility]) HPI 3 M FU Chief Complaint: [...] brachial Po (more content not included)... Normal [facility] Laboratory - Microbiology an d Antimicrobial susceptibilityOrdered By: Teo Veronica on 12-25-2023 SARS-CoV-2 (COVID-19) RNA VALDO+probe Ql (Unsp spec) [facility] Basophil percentageOrdered B y: Hank Ray on 12-02-2023 Chloride [Moles/Vol] 106 mmol/L 98-107 [facility] Glucose [Mass/Vol] 114 mg/dL 74-106 [facility] Comment on above: Fasting Glucose resu lt from 100 to 125 mg/dL suggests IMPAIRED HOMEOSTASIS per A.D.A. criteria. Potassium [Moles/Vol] 3.5 mmol/L 3.5-5.1 [facility] Sodium [Moles/Vol] 142 mmol/L 136-145 [facility] Laboratory - Chemistry and C hemistry - challengeOrdered By: Hank Ray on 12-02-2023 CO2 [Moles/Vol] 28.0 mmol/L 21.0-32.0 [facility] Urea nitrogen/Creatinine [Mass ratio] 13.4 mg/mg 10-20 [facility] No Panel InformationOrdered By: Hakn Ray on 12-02-2023 Estimated GFR (MDRD) Amer 82 mL/min >60 [facility] Comment on above: GFR Calc Estimated GFR (MDRD) Non-Af Amer 68 mL/min >60 [facility] Comment on above: Non- GFR Calc Serum or plasma calcium aneudy urement (mass/volume)Ordered By: Hank Ray on 12-02-2023 Calcium [Mass/Vol] 8.9 mg/dL 8.5-10.1 [facility] Serum or plasma creatinine m easurement (mass/volume)Ordered By: Hank Ray on 12-02-2023 Creatinine [Mass/Vol] 1.12 mg/dL 0.70-1.30 [facility] Comment on above: The validity of the calculated GFR & GFRAA in patients over 70 years has not been determined. Clinical correlation is essential. Serum or plasma urea nitroge n measurement (mass/volume)Ordered By: Hank Ray on 12-02-2023 Urea nitrogen [Mass/Vol] 15 mg/dL 7-18 [facility] Thin prep Papanicolaou smear with manual screeningOrdered By: Hank Ray on 12-02-2023 Thin prep Papanicolaou smear with manual screening 8 5-15 [facility] Whole blood hemoglobin A1c/t otal hemoglobin ratio (mass fraction)Ordered By: Hank Ray on 12-02-2023 HbA1c (Bld) [Mass fraction] 6.2 % 3.8-5.6 [facility] Comment on above: Normal < 5.7 % Predi abetic 5.7 - 6.4 % Diabetic >or= 6.5 % Please note range changes. Basophil percentageOrdered B y: Teo Veronica on 10-22-2023 Basophil percentage Woost er Replaced By [facility] Basophil percentage [facility] er [facility] Laboratory - Microbiology an d Antimicrobial susceptibilityOrdered By: Teo Veronica on 10-22-2023 SARS-CoV-2 (COVID-19) RNA VALDO+probe Ql (Unsp spec) [facility] SARS-CoV-2 (COVID-19) RNA VALDO+probe Ql (Unsp spec) [facility] No Panel InformationOrdered By: Teo Veronica on 10-22-2023 Influenza Types A,B Direct FA (DEVON) [facility] Influenza Types A,B Direct FA (DEVON) [facility] Laboratory - Microbiology an d Antimicrobial susceptibilityon 10-10-2023 S. pyogenes Ag IA Ql (Unsp spec) Negative [facility] Absolute lymphocyte countOrd ered By: Teo Veronica on 09-10-2023 Lymphocytes Auto (Unsp spec) [#/Vol] 1.70 10*3/uL 0.83-4.51 [facility] Basophil percentageOrdered B y: Teo Veronica on 09-10-2023 Basophils/100 WBC (Bld) 0.5 % 0-1 [facility] Bilirubin [Mass/Vol] 0.50 mg/dL 0.20-1.00 [facility] Comment on above: For patients on eltr ombopag therapy, use of Dimension [place] TBIL is not recommended. Chloride [Moles/Vol] 104 mmol/L 98-107 [facility] Cholesterol [Mass/Vol] 127 mg/dL <200 [facility] Comment on above: <200 mg/dL Desirable 200-240 mg/dL Borderline >240 mg/dL High Risk Eosinophils/100 WBC (Bld) 3.8 % 0-5 [facility] Glucose [Mass/Vol] 158 mg/dL 74-106 [facility] Comment on above: Fasting Glucose resu lt greater than or equal to 126 mg/dL suggests DIABETES MELLITUS per A.D.A. criteria. Neutrophils (Bld) [#/Vol] 3.4 10*3/uL 2.0-7.7 [facility] Neutrophils/100 WBC (Bld) 58.2 % 47-70 [facility] Potassium [Moles/Vol] 3.5 mmol/L 3.5-5.1 [facility] Protein [Mass/Vol] 7.4 g/dL 6.4-8.2 [facility] Sodium [Moles/Vol] 139 mmol/L 136-145 [facility] Triglyceride [Mass/Vol] 120 mg/dL <199 [facility] Comment on above: The drugs N-Acetylcy steine and Metamizole may falsely depress this assay.Serum Triglycerides Reference Interval Normal <150 mg/dL Borderline high 150 - 199 mg/dL High 200 - 499 mg/dL Very High > or = 500 mg/dL WBC (Bld) [#/Vol] 5.8 10*3/uL 4.4-11.0 [facility] Blood erythrocytes count (nu mber/volume)Ordered By: Teo Veronica on 09-10-2023 RBC (Bld) [#/Vol] 4.34 10*6/uL 4.6-6.2 [facility] Blood hemoglobin measurement (mass/volume)Ordered By: Teo Veronica on 09-10-2023 Hemoglobin (Bld) [Mass/Vol] 13.5 g/dL 13.0-16.5 [facility] Blood lymphocytes/100 leukoc ytesOrdered By: Teo Veronica on 09-10-2023 Lymphocytes/100 WBC (Bld) 29.4 % 19-41 [facility] Blood monocytes/100 leukocyt esOrdered By: Teo Veronica on 09-10-2023 Monocytes/100 WBC (Bld) 7.8 % 0-10 [facility] Blood platelet mean volumeOr dered By: Teo Veronica on 09-10-2023 Platelet mean volume (Bld) [Entitic vol] 10.0 fL 6.2-12.0 [facility] Determination of erythrocyte mean corpuscular volume (MCV)Ordered By: Teo Veronica on 09-10-2023 MCV (RBC) [Entitic vol] 94.9 fL 80-94 [facility] Hematocrit Auto (Bld) [Volum e fraction]Ordered By: Teo Veronica on 09-10-2023 Hematocrit (Bld) [Volume fraction] 41.2 % 40-54 [facility] Laboratory - Chemistry and C hemistry - challengeOrdered By: Teo Veronica on 09-10-2023 ALP [Catalytic activity/Vol] 71 U/L 45-117 [facility] ALT [Catalytic activity/Vol] 34 U/L 16-61 [facility] CO2 [Moles/Vol] 29.0 mmol/L 21.0-32.0 [facility] Globulin (S) [Mass/Vol] 3.8 g/dL 2.2-4.2 [facility] Urea nitrogen/Creatinine [Mass ratio] 9.1 mg/mg 10-20 [facility] Laboratory - Hematology and Cell countsOrdered By: Teo Veronica on 09-10-2023 Erythrocyte distribution width (RBC) [Entitic vol] 42.5 fL 35.1-43.9 [facility] Erythrocyte distribution width (RBC) [Ratio] 12.1 % 11.6-14.6 [facility] Immature granulocytes/100 WBC (Bld) 0.300 % 0.0-0.9 [facility] Comment on above: IG% - Immature Granu locytes (promyelocytes, myelocytes and metamyelocytes) > 1% indicates that a LEFT SHIFT is Present. MCH (RBC) [Entitic mass] 31.1 pg 27.0-32.0 [facility] Nucleated RBC/100 WBC (Bld) [Ratio] 0 % 0-5 [facility] MCHC Auto (RBC) [Mass/Vol]Or dered By: Teo Veronica on 09-10-2023 MCHC (RBC) [Mass/Vol] 32.8 g/dL 32-36 [facility] No Panel InformationOrdered By: Teo Veronica on 09-10-2023 Estimated GFR (MDRD) Amer 68 mL/min >60 [facility] Comment on above: GFR Calc Estimated GFR (MDRD) Non-Af Amer 56 mL/min >60 [facility] Comment on above: Non- GFR Calc Thyroid Stimulating Hormone (TSH) 2.63 uIU/mL 0.358-3.74 [facility] Vitamin D 25-Hydroxy 38.0 ng/mL [facility] Comment on above: Vitamin D 25(OH) Sta tus Range Deficiency <20 ng/mL (50nmol/L) Insufficiency 20 - 30 ng/mL (50 - 75 nmol/L) Sufficiency 30 - 100 ng/mL (75 - 250 nmol/L) Toxicity >100 ng/mL (>250 nmol/L) Platelets bldOrdered By: Teo Veronica on 09-10-2023 Platelets (Bld) [#/Vol] 194 10*3/uL 150-450 [facility] Serum or plasma albumin aneudy urement (mass/volume)Ordered By: Teo Veronica on 09-10-2023 Albumin [Mass/Vol] 3.6 g/dL 3.2-5.0 [facility] Serum or plasma albumin/glob ulin mass ratioOrdered By: Teo Veronica 09-10-2023 Albumin/Globulin [Mass ratio] 0.9 {ratio} 0.9-2.4 [facility] Serum or plasma calcium aneudy urement (mass/volume)Ordered By: Teo Veronica 09-10-2023 Calcium [Mass/Vol] 8.7 mg/dL 8.5-10.1 [facility] Serum or plasma cholesterol in HDL measurement (mass/volume)Ordered By: Teo Veronica 09-10-2023 Cholesterol in HDL [Mass/Vol] 49 mg/dL >40 [facility] Comment on above: The drugs N-Acetylcy steine and Metamizole may falsely depress this assay. Reference Range HDL <40 mg/dL Low HDL Cholesterol HDL >or= 60 mg/dL High HDL Cholesterol Serum or plasma cholesterol in VLDL measurement (mass/volume)Ordered By: Teo Veronica 09-10-2023 Cholesterol in VLDL [Mass/Vol] 24 mg/dL 5-40 [facility] Serum or plasma creatinine m easurement (mass/volume)Ordered By: Teo Veronica 09-10-2023 Creatinine [Mass/Vol] 1.32 mg/dL 0.70-1.30 [facility] Comment on above: The validity of the calculated GFR & GFRAA in patients over 70 years has not been determined. Clinical correlation is essential. Serum or plasma low density lipoprotein (LDL) cholesterol measurement (mass/volume)Ordered By: Teo Veronica on 09-10-2023 Cholesterol in LDL [Mass/Vol] 54 mg/dL 0-130 [facility] Serum or plasma urea nitroge n measurement (mass/volume)Ordered By: Teo Veronica on 09-10-2023 Urea nitrogen [Mass/Vol] 12 mg/dL 7-18 [facility] Thin prep Papanicolaou smear with manual screeningOrdered By: Teo Veronica on 09-10-2023 Thin prep Papanicolaou smear with manual screening 21 U/L 15-37 [facility] Thin prep Papanicolaou smear with manual screening 6 5-15 [facility] Absolute lymphocyte countOrd ered By: Costa Isma on 03-13-2023 Lymphocytes Auto (Unsp spec) [#/Vol] 1.90 10*3/uL 0.83-4.51 [facility] Basophil percentageOrdered B y: Costa Isma on 03-13-2023 Basophils/100 WBC (Bld) 0.4 % 0-1 [facility] Bilirubin [Mass/Vol] 0.40 mg/dL 0.20-1.00 [facility] Comment on above: For patients on eltr ombopag therapy, use of Dimension [place] TBIL is not recommended. Chloride [Moles/Vol] 105 mmol/L 98-107 [facility] Cholesterol [Mass/Vol] 113 mg/dL <200 [facility] Comment on above: <200 mg/dL Desirable 200-240 mg/dL Borderline >240 mg/dL High Risk Eosinophils/100 WBC (Bld) 4.8 % 0-5 [facility] Glucose [Mass/Vol] 119 mg/dL 74-106 [facility] Comment on above: Fasting Glucose resu lt from 100 to 125 mg/dL suggests IMPAIRED HOMEOSTASIS per A.D.A. criteria. Neutrophils (Bld) [#/Vol] 3.8 10*3/uL 2.0-7.7 [facility] Neutrophils/100 WBC (Bld) 57.0 % 47-70 [facility] Potassium [Moles/Vol] 3.9 mmol/L 3.5-5.1 [facility] Protein [Mass/Vol] 6.8 g/dL 6.4-8.2 [facility] Sodium [Moles/Vol] 142 mmol/L 136-145 [facility] Triglyceride [Mass/Vol] 120 mg/dL <199 [facility] Comment on above: The drugs N-Acetylcy steine and Metamizole may falsely depress this assay.Serum Triglycerides Reference Interval Normal <150 mg/dL Borderline high 150 - 199 mg/dL High 200 - 499 mg/dL Very High > or = 500 mg/dL WBC (Bld) [#/Vol] 6.7 10*3/uL 4.4-11.0 [facility] Blood erythrocytes count (nu mber/volume)Ordered By: Costa Ashby on 03-13-2023 RBC (Bld) [#/Vol] 4.16 10*6/uL 4.6-6.2 [facility] Blood hemoglobin measurement (mass/volume)Ordered By: Costa Ashby on 03-13-2023 Hemoglobin (Bld) [Mass/Vol] 13.0 g/dL 13.0-16.5 [facility] Blood lymphocytes/100 leukoc ytesOrdered By: Costa Ashby on 03-13-2023 Lymphocytes/100 WBC (Bld) 28.3 % 19-41 [facility] Blood monocytes/100 leukocyt esOrdered By: Costa Ashby on 03-13-2023 Monocytes/100 WBC (Bld) 9.2 % 0-10 [facility] Blood platelet mean volumeOr dered By: Costa Ashby on 03-13-2023 Platelet mean volume (Bld) [Entitic vol] 9.9 fL 6.2-12.0 [facility] Determination of erythrocyte mean corpuscular volume (MCV)Ordered By: Costa Ashby on 03-13-2023 MCV (RBC) [Entitic vol] 93.8 fL 80-94 [facility] Direct bilirubinOrdered By: Costa Ashby on 03-13-2023 Bilirubin.direct [Mass/Vol] 0.13 mg/dL 0.00-0.30 [facility] Hematocrit Auto (Bld) [Volum e fraction]Ordered By: Costa Ashby on 03-13-2023 Hematocrit (Bld) [Volume fraction] 39.0 % 40-54 [facility] Laboratory - Chemistry and C hemistry - challengeOrdered By: Costa Ashby on 03-13-2023 ALP [Catalytic activity/Vol] 82 U/L 45-117 [facility] ALT [Catalytic activity/Vol] 34 U/L 16-61 [facility] CO2 [Moles/Vol] 29.0 mmol/L 21.0-32.0 [facility] Globulin (S) [Mass/Vol] 3.1 g/dL 2.2-4.2 [facility] Urea nitrogen/Creatinine [Mass ratio] 16.7 mg/mg 10-20 [facility] Laboratory - Hematology and Cell countsOrdered By: Costa Ashby on 03-13-2023 Erythrocyte distribution width (RBC) [Entitic vol] 44.4 fL 35.1-43.9 [facility] Erythrocyte distribution width (RBC) [Ratio] 13.1 % 11.6-14.6 [facility] Immature granulocytes/100 WBC (Bld) 0.300 % 0.0-0.9 [facility] Comment on above: IG% - Immature Granu locytes (promyelocytes, myelocytes and metamyelocytes) > 1% indicates that a LEFT SHIFT is Present. MCH (RBC) [Entitic mass] 31.3 pg 27.0-32.0 [facility] Nucleated RBC/100 WBC (Bld) [Ratio] 0 % 0-5 [facility] MCHC Auto (RBC) [Mass/Vol]Or dered By: Costa Ashby on 03-13-2023 MCHC (RBC) [Mass/Vol] 33.3 g/dL 32-36 [facility] No Panel InformationOrdered By: Costa Ashby on 03-13-2023 Estimated GFR (MDRD) Amer 80 mL/min >60 [facility] Comment on above: GFR Calc Estimated GFR (MDRD) Non-Af Amer 66 mL/min >60 [facility] Comment on above: Non- GFR Calc Thyroid Stimulating Hormone (TSH) 2.57 uIU/mL 0.358-3.74 [facility] Vitamin D 25-Hydroxy 42.0 ng/mL [facility] Comment on above: Vitamin D 25(OH) Sta tus Range Deficiency <20 ng/mL (50nmol/L) Insufficiency 20 - 30 ng/mL (50 - 75 nmol/L) Sufficiency 30 - 100 ng/mL (75 - 250 nmol/L) Toxicity >100 ng/mL (>250 nmol/L) Platelets bldOrdered By: Yamil Ashby on 03-13-2023 Platelets (Bld) [#/Vol] 214 10*3/uL 150-450 [facility] Serum or plasma albumin aneudy urement (mass/volume)Ordered By: Costa Isma on 03-13-2023 Albumin [Mass/Vol] 3.7 g/dL 3.2-5.0 [facility] Serum or plasma albumin/glob ulin mass ratioOrdered By: Costa Isma on 03-13-2023 Albumin/Globulin [Mass ratio] 1.2 {ratio} 0.9-2.4 [facility] Serum or plasma calcium aneudy urement (mass/volume)Ordered By: Costa Ashby on 03-13-2023 Calcium [Mass/Vol] 8.8 mg/dL 8.5-10.1 [facility] Serum or plasma cholesterol in HDL measurement (mass/volume)Ordered By: Costa Isma on 03-13-2023 Cholesterol in HDL [Mass/Vol] 44 mg/dL >40 [facility] Comment on above: The drugs N-Acetylcy steine and Metamizole may falsely depress this assay. Reference Range HDL <40 mg/dL Low HDL Cholesterol HDL >or= 60 mg/dL High HDL Cholesterol Serum or plasma cholesterol in VLDL measurement (mass/volume)Ordered By: Costa Ashby on 03-13-2023 Cholesterol in VLDL [Mass/Vol] 24 mg/dL 5-40 [facility] Serum or plasma creatinine m easurement (mass/volume)Ordered By: Costauziel Ashby on 03-13-2023 Creatinine [Mass/Vol] 1.14 mg/dL 0.70-1.30 [facility] Comment on above: The validity of the calculated GFR & GFRAA in patients over 70 years has not been determined. Clinical correlation is essential. Serum or plasma low density lipoprotein (LDL) cholesterol measurement (mass/volume)Ordered By: Costa Isma on 03-13-2023 Cholesterol in LDL [Mass/Vol] 45 mg/dL 0-130 [facility] Serum or plasma urea nitroge n measurement (mass/volume)Ordered By: Costa Ashby on 03-13-2023 Urea nitrogen [Mass/Vol] 19 mg/dL 7-18 [facility] Thin prep Papanicolaou smear with manual screeningOrdered By: Costa Ashby on 03-13-2023 Thin prep Papanicolaou smear with manual screening 19 U/L 15-37 [facility] Thin prep Papanicolaou smear with manual screening 8 5-15 [facility] Absolute lymphocyte countOrd ered By: Dr. Veronica on 09-05-2022 Lymphocytes Auto (Unsp spec) [#/Vol] 1.83 10*3/uL 0.83-4.51 [facility] Basophil percentageOrdered B y: Dr. Veronica on 09-05-2022 Basophils/100 WBC (Bld) 0.5 % 0-1 [facility] Bilirubin [Mass/Vol] 0.50 mg/dL 0.20-1.00 [facility] Comment on above: For patients on eltr ombopag therapy, use of Dimension [place] TBIL is not recommended. Chloride [Moles/Vol] 105 mmol/L 98-107 [facility] Eosinophils/100 WBC (Bld) 5.3 % 0-5 [facility] Glucose [Mass/Vol] 144 mg/dL 74-106 [facility] Comment on above: Fasting Glucose resu lt greater than or equal to 126 mg/dL suggests DIABETES MELLITUS per A.D.A. criteria. Neutrophils (Bld) [#/Vol] 3.3 10*3/uL 2.0-7.7 [facility] Neutrophils/100 WBC (Bld) 55.5 % 47-70 [facility] Potassium [Moles/Vol] 3.6 mmol/L 3.5-5.1 [facility] Protein [Mass/Vol] 7.0 g/dL 6.4-8.2 [facility] Sodium [Moles/Vol] 142 mmol/L 136-145 [facility] WBC (Bld) [#/Vol] 6.0 10*3/uL 4.4-11.0 [facility] Blood erythrocytes count (nu mber/volume)Ordered By: Dr. Veronica on 09-05-2022 RBC (Bld) [#/Vol] 4.49 10*6/uL 4.6-6.2 [facility] Blood hemoglobin measurement (mass/volume)Ordered By: Dr. Veronica on 09-05-2022 Hemoglobin (Bld) [Mass/Vol] 14.2 g/dL 13.0-16.5 [facility] Blood lymphocytes/100 leukoc ytesOrdered By: Dr. Veronica on 09-05-2022 Lymphocytes/100 WBC (Bld) 30.4 % 19-41 [facility] Blood monocytes/100 leukocyt esOrdered By: Dr. Veronica on 09-05-2022 Monocytes/100 WBC (Bld) 8.1 % 0-10 [facility] Blood platelet mean volumeOr dered By: Dr. Veronica on 09-05-2022 Platelet mean volume (Bld) [Entitic vol] 9.9 fL 6.2-12.0 [facility] Determination of erythrocyte mean corpuscular volume (MCV)Ordered By: Dr. Veronica on 09-05-2022 MCV (RBC) [Entitic vol] 96.0 fL 80-94 [facility] Hematocrit Auto (Bld) [Volum e fraction]Ordered By: Dr. Veronica on 09-05-2022 Hematocrit (Bld) [Volume fraction] 43.1 % 40-54 [facility] Laboratory - Chemistry and C hemistry - challengeOrdered By: Dr. Veronica on 09-05-2022 ALP [Catalytic activity/Vol] 78 U/L 45-117 [facility] ALT [Catalytic activity/Vol] 34 U/L 16-61 [facility] CO2 [Moles/Vol] 27.0 mmol/L 21.0-32.0 [facility] Globulin (S) [Mass/Vol] 3.5 g/dL 2.2-4.2 [facility] Urea nitrogen/Creatinine [Mass ratio] 12.0 mg/mg 10-20 [facility] Laboratory - Hematology and Cell countsOrdered By: Dr. Veronica on 09-05-2022 Erythrocyte distribution width (RBC) [Entitic vol] 44.3 fL 35.1-43.9 [facility] Erythrocyte distribution width (RBC) [Ratio] 12.6 % 11.6-14.6 [facility] Immature granulocytes/100 WBC (Bld) 0.200 % 0.0-0.9 [facility] Comment on above: IG% - Immature Granu locytes (promyelocytes, myelocytes and metamyelocytes) > 1% indicates that a LEFT SHIFT is Present. MCH (RBC) [Entitic mass] 31.6 pg 27.0-32.0 [facility] Nucleated RBC/100 WBC (Bld) [Ratio] 0 % 0-5 [facility] MCHC Auto (RBC) [Mass/Vol]Or dered By: Dr. Veronica on 09-05-2022 MCHC (RBC) [Mass/Vol] 32.9 g/dL 32-36 [facility] No Panel InformationOrdered By: Dr. Veronica on 09-05-2022 Estimated GFR (MDRD) Amer 85 mL/min >60 [facility] Comment on above: GFR Calc Estimated GFR (MDRD) Non-Af Amer 71 mL/min >60 [facility] Comment on above: Non- GFR Calc Thyroid Stimulating Hormone (TSH) 2.56 uIU/mL 0.358-3.74 [facility] Vitamin D 25-Hydroxy 35.3 ng/mL [facility] Comment on above: Vitamin D 25(OH) Sta tus Range Deficiency <20 ng/mL (50nmol/L) Insufficiency 20 - 30 ng/mL (50 - 75 nmol/L) Sufficiency 30 - 100 ng/mL (75 - 250 nmol/L) Toxicity >100 ng/mL (>250 nmol/L) Platelets bldOrdered By: Dr. Veronica on 09-05-2022 Platelets (Bld) [#/Vol] 169 10*3/uL 150-450 [facility] Serum or plasma albumin aneudy urement (mass/volume)Ordered By: Dr. Veronica on 09-05-2022 Albumin [Mass/Vol] 3.5 g/dL 3.2-5.0 [facility] Serum or plasma albumin/glob ulin mass ratioOrdered By: Dr. Veronica on 09-05-2022 Albumin/Globulin [Mass ratio] 1.0 {ratio} 0.9-2.4 [facility] Serum or plasma calcium aneudy urement (mass/volume)Ordered By: Dr. Veronica on 09-05-2022 Calcium [Mass/Vol] 8.8 mg/dL 8.5-10.1 [facility] Serum or plasma creatinine m easurement (mass/volume)Ordered By: Dr. Veronica on 09-05-2022 Creatinine [Mass/Vol] 1.08 mg/dL 0.70-1.30 [facility] Comment on above: The validity of the calculated GFR & GFRAA in patients over 70 years has not been determined. Clinical correlation is essential. Serum or plasma urea nitroge n measurement (mass/volume)Ordered By: Dr. Veronica on 09-05-2022 Urea nitrogen [Mass/Vol] 13 mg/dL 7-18 [facility] Thin prep Papanicolaou smear with manual screeningOrdered By: Dr. Veronica on 09-05-2022 Thin prep Papanicolaou smear with manual screening 18 U/L 15-37 [facility] Thin prep Papanicolaou smear with manual screening 10 5-15 [facility] Laboratory - Microbiology an d Antimicrobial susceptibilityOrdered By: Dr. Veronica on 08-20-2022 SARS-CoV-2 (COVID-19) RNA VALDO+probe Ql (Unsp spec) Not detected Not Detect [facility] Comment on above: Normal Reference Ran ge: Not DetectedMethod:(RT-PCR) real-time reverse transcriptase PCRLuminex CHRISTIE Instrument*The Food and Drug Administration (FDA) has issued an Emergency Use Authorization (EAU) for the CHRISTIE SARS-CoV-2 Assay for the rapid detection of [...] recent exposure. No Panel InformationOrdered By: Dr. Veronica on 08-20-2022 Influenza Types A,B Direct FA ([facility]) [facility] RSV Ag EIAOrdered By: Dr. Zan ma on 08-20-2022 RSV Ag Immune stain Ql (Tiss) [facility] Basophil percentageon 2021 Bilirubin [Mass/Vol] 0.40 mg/dL 0.20-1.00 [facility] Work Phone: Comment on above: For patients on eltr ombopag therapy, use of Dimension [place] TBIL is not recommended. Chloride [Moles/Vol] 106 mmol/L 98-107 [facility] Work Phone: Cholesterol [Mass/Vol] 128 mg/dL <200 [facility] Work Phone: Comment on above: <200 mg/dL Desirable 200-240 mg/dL Borderline >240 mg/dL High Risk Glucose [Mass/Vol] 145 mg/dL 74-106 [facility] Work Phone: Comment on above: Fasting Glucose resu lt greater than or equal to 126 mg/dL suggests DIABETES MELLITUS per A.D.A. criteria. Potassium [Moles/Vol] 3.8 mmol/L 3.5-5.1 [facility] Work Phone: Protein [Mass/Vol] 7.3 g/dL 6.4-8.2 [facility] Work Phone: Sodium [Moles/Vol] 141 mmol/L 136-145 [facility] Work Phone: Triglyceride [Mass/Vol] 119 mg/dL <199 [facility] Work Phone: Comment on above: The drugs N-Acetylcy steine and Metamizole may falsely depress this assay.Serum Triglycerides Reference Interval Normal <150 mg/dL Borderline high 150 - 199 mg/dL High 200 - 499 mg/dL Very High > or = 500 mg/dL Direct bilirubinon 2 Bilirubin.direct [Mass/Vol] 0.11 mg/dL 0.00-0.30 [facility] Work Phone: Laboratory - Chemistry and C hemistry - challengeon 06-04-2022 ALP [Catalytic activity/Vol] 84 U/L 45-117 [facility] Work Phone: ALT [Catalytic activity/Vol] 28 U/L 16-61 [facility] Work Phone: [phone] CO2 [Moles/Vol] 29.0 mmol/L 21.0-32.0 [facility] Work Phone: Globulin (S) [Mass/Vol] 3.6 g/dL 2.2-4.2 [facility] Work Phone: [phone] Urea nitrogen/Creatinine [Mass ratio] 9.7 mg/mg 10-20 [facility] Work Phone: [phone] No Panel Informationon 06-04 Estimated GFR (MDRD) Amer 90 mL/min >60 [facility] Work Phone: Comment on above: GFR Calc Estimated GFR (MDRD) Non-Af Amer 75 mL/min >60 [facility] Work Phone: Comment on above: Non- GFR Calc Serum or plasma albumin aneudy urement (mass/volume)on 06-04-2022 Albumin [Mass/Vol] 3.7 g/dL 3.2-5.0 [facility] Work Phone: [phone] Serum or plasma calcium aneduy urement (mass/volume)on 06-04-2022 Calcium [Mass/Vol] 8.7 mg/dL 8.5-10.1 [facility] Work Phone: [phone] Serum or plasma cholesterol in HDL measurement (mass/volume)on 06-04-2022 Cholesterol in HDL [Mass/Vol] 43 mg/dL >40 [facility] Work Phone: [phone] Comment on above: The drugs N-Acetylcy steine and Metamizole may falsely depress this assay. Reference Range HDL <40 mg/dL Low HDL Cholesterol HDL >or= 60 mg/dL High HDL Cholesterol Serum or plasma cholesterol in VLDL measurement (mass/volume)on 06-04-2022 Cholesterol in VLDL [Mass/Vol] 24 mg/dL 5-40 [facility] Work Phone: Serum or plasma creatinine m easurement (mass/volume)on 06-04-2022 Creatinine [Mass/Vol] 1.03 mg/dL 0.70-1.30 [facility] Work Phone: Comment on above: The validity of the calculated GFR & GFRAA in patients over 70 years has not been determined. Clinical correlation is essential. Serum or plasma low density lipoprotein (LDL) cholesterol measurement (mass/volume)on 06-04-2022 Cholesterol in LDL [Mass/Vol] 61 mg/dL 0-130 [facility] Work Phone: Serum or plasma urea nitroge n measurement (mass/volume)on 06-04-2022 Urea nitrogen [Mass/Vol] 10 mg/dL 7-18 [facility] Work Phone: [phone] Thin prep Papanicolaou smear with manual screeningon 06-04-2022 Thin prep Papanicolaou smear with manual screening 16 U/L 15-37 [facility] Work Phone: Thin prep Papanicolaou smear with manual screening 6 5-15 [facility] Work Phone: Basophil percentageon 2021 Chloride [Moles/Vol] 107 mmol/L 98-107 [facility] Work Phone: Glucose [Mass/Vol] 160 mg/dL 74-106 [facility] Work Phone: Comment on above: Fasting Glucose resu lt greater than or equal to 126 mg/dL suggests DIABETES MELLITUS per A.D.A. criteria. Potassium [Moles/Vol] 3.7 mmol/L 3.5-5.1 [facility] Work Phone: Sodium [Moles/Vol] 140 mmol/L 136-145 [facility] Work Phone: [phone] Laboratory - Chemistry and C hemistry - challengeon 03-21-2022 CO2 [Moles/Vol] 26.0 mmol/L 21.0-32.0 [facility] Work Phone: Urea nitrogen/Creatinine [Mass ratio] 10.7 mg/mg 10-20 [facility] Work Phone: No Panel Informationon 03-21 Estimated GFR (MDRD) Amer 74 mL/min >60 [facility] Work Phone: Comment on above: GFR Calc Estimated GFR (MDRD) Non-Af Amer 61 mL/min >60 [facility] Work Phone: Comment on above: Non- GFR Calc Serum or plasma calcium aneudy urement (mass/volume)on 03-21-2022 Calcium [Mass/Vol] 8.6 mg/dL 8.5-10.1 [facility] Work Phone: Serum or plasma creatinine m easurement (mass/volume)on 03-21-2022 Creatinine [Mass/Vol] 1.22 mg/dL 0.70-1.30 [facility] Work Phone: Comment on above: The validity of the calculated GFR & GFRAA in patients over 70 years has not been determined. Clinical correlation is essential. Serum or plasma urea nitroge n measurement (mass/volume)on 03-21-2022 Urea nitrogen [Mass/Vol] 13 mg/dL 7-18 [facility] Work Phone: [phone] Thin prep Papanicolaou smear with manual screeningon 03-21-2022 Thin prep Papanicolaou smear with manual screening 7 5-15 [facility] Work Phone: [phone] Absolute lymphocyte counton 03-13-2022 Lymphocytes Auto (Unsp spec) [#/Vol] 1.53 10*3/uL 0.83-4.51 [facility] Work Phone: [phone] Basophil percentageon 2021 Basophils/100 WBC (Bld) 0.3 % 0-1 [facility] Work Phone: [phone] Bilirubin [Mass/Vol] 0.40 mg/dL 0.20-1.00 [facility] Work Phone: Comment on above: For patients on eltr ombopag therapy, use of Dimension [place] TBIL is not recommended. Chloride [Moles/Vol] 106 mmol/L 98-107 [facility] Work Phone: Eosinophils/100 WBC (Bld) 3.8 % 0-5 [facility] Work Phone: Glucose [Mass/Vol] 186 mg/dL 74-106 [facility] Work Phone: Comment on above: Fasting Glucose resu lt greater than or equal to 126 mg/dL suggests DIABETES MELLITUS per A.D.A. criteria. Neutrophils (Bld) [#/Vol] 4.0 10*3/uL 2.0-7.7 [facility] Work Phone: Neutrophils/100 WBC (Bld) 64.1 % 47-70 [facility] Work Phone: Potassium [Moles/Vol] 3.4 mmol/L 3.5-5.1 [facility] Work Phone: Protein [Mass/Vol] 7.0 g/dL 6.4-8.2 [facility] Work Phone: Sodium [Moles/Vol] 140 mmol/L 136-145 [facility] Work Phone: WBC (Bld) [#/Vol] 6.3 10*3/uL 4.4-11.0 [facility] Work Phone: Blood erythrocytes count (nu mber/volume)on 03-13-2022 RBC (Bld) [#/Vol] 4.30 10*6/uL 4.6-6.2 [facility] Work Phone: Blood hemoglobin measurement (mass/volume)on 03-13-2022 Hemoglobin (Bld) [Mass/Vol] 13.7 g/dL 13.0-16.5 [facility] Work Phone: Blood lymphocytes/100 leukoc yteson 03-13-2022 Lymphocytes/100 WBC (Bld) 24.5 % 19-41 [facility] Work Phone: Blood monocytes/100 leukocyt eson 03-13-2022 Monocytes/100 WBC (Bld) 7.0 % 0-10 [facility] Work Phone: Blood platelet mean volumeon 03-13-2022 Platelet mean volume (Bld) [Entitic vol] 9.9 fL 6.2-12.0 [facility] Work Phone: Determination of erythrocyte mean corpuscular volume (MCV)on 03-13-2022 MCV (RBC) [Entitic vol] 94.9 fL 80-94 [facility] Work Phone: Hematocrit Auto (Bld) [Volum e fraction]on 03-13-2022 Hematocrit (Bld) [Volume fraction] 40.8 % 40-54 [facility] Work Phone: Laboratory - Chemistry and C hemistry - challengeon 03-13-2022 ALP [Catalytic activity/Vol] 73 U/L 45-117 [facility] Work Phone: [phone] ALT [Catalytic activity/Vol] 36 U/L 16-61 [facility] Work Phone: [phone] CO2 [Moles/Vol] 27.0 mmol/L 21.0-32.0 [facility] Work Phone: [phone] Globulin (S) [Mass/Vol] 3.4 g/dL 2.2-4.2 [facility] Work Phone: [phone] Urea nitrogen/Creatinine [Mass ratio] 10.7 mg/mg 10-20 [facility] Work Phone: [phone] Laboratory - Hematology and Cell countson 03-13-2022 Erythrocyte distribution width (RBC) [Entitic vol] 43.6 fL 35.1-43.9 [facility] Work Phone: [phone] Erythrocyte distribution width (RBC) [Ratio] 12.6 % 11.6-14.6 [facility] Work Phone: [phone] Immature granulocytes/100 WBC (Bld) 0.300 % 0.0-0.9 [facility] Work Phone: [phone] Comment on above: IG% - Immature Granu locytes (promyelocytes, myelocytes and metamyelocytes) > 1% indicates that a LEFT SHIFT is Present. MCH (RBC) [Entitic mass] 31.9 pg 27.0-32.0 [facility] Work Phone: [phone] Nucleated RBC/100 WBC (Bld) [Ratio] 0 % 0-5 [facility] Work Phone: [phone] MCHC Auto (RBC) [Mass/Vol]on 03-13-2022 MCHC (RBC) [Mass/Vol] 33.6 g/dL 32-36 [facility] Work Phone: [phone] No Panel Informationon 03-13 Estimated GFR (MDRD) Amer 82 mL/min >60 [facility] Work Phone: [phone] Comment on above: GFR Calc Estimated GFR (MDRD) Non-Af Amer 68 mL/min >60 [facility] Work Phone: [phone] Comment on above: Non- GFR Calc Thyroid Stimulating Hormone (TSH) 3.34 uIU/mL 0.358-3.74 [facility] Work Phone: [phone] Vitamin D 25-Hydroxy 36.4 ng/mL [facility] Work Phone: [phone] Comment on above: Vitamin D 25(OH) Sta tus Range Deficiency <20 ng/mL (50nmol/L) Insufficiency 20 - 30 ng/mL (50 - 75 nmol/L) Sufficiency 30 - 100 ng/mL (75 - 250 nmol/L) Toxicity >100 ng/mL (>250 nmol/L) Platelets bldon 03-13-2022 Platelets (Bld) [#/Vol] 190 10*3/uL 150-450 [facility] Work Phone: [phone] Serum or plasma albumin aneudy urement (mass/volume)on 03-13-2022 Albumin [Mass/Vol] 3.6 g/dL 3.2-5.0 [facility] Work Phone: [phone] Serum or plasma albumin/glob ulin mass ratioon 03-13-2022 Albumin/Globulin [Mass ratio] 1.1 {ratio} 0.9-2.4 [facility] Work Phone: [phone] Serum or plasma calcium aneudy urement (mass/volume)on 03-13-2022 Calcium [Mass/Vol] 8.5 mg/dL 8.5-10.1 [facility] Work Phone: Serum or plasma creatinine m easurement (mass/volume)on 03-13-2022 Creatinine [Mass/Vol] 1.12 mg/dL 0.70-1.30 [facility] Work Phone: Comment on above: The validity of the calculated GFR & GFRAA in patients over 70 years has not been determined. Clinical correlation is essential. Serum or plasma urea nitroge n measurement (mass/volume)on 03-13-2022 Urea nitrogen [Mass/Vol] 12 mg/dL 7-18 [facility] Work Phone: Thin prep Papanicolaou smear with manual screeningon 03-13-2022 Thin prep Papanicolaou smear with manual screening 14 U/L 15-37 [facility] Work Phone: Thin prep Papanicolaou smear with manual screening 7 5-15 [facility] Work Phone: Whole blood hemoglobin A1c/t otal hemoglobin ratio (mass fraction)on 03-13-2022 HbA1c (Bld) [Mass fraction] 5.8 % 3.8-5.6 [facility] Work Phone: Comment on above: Normal < 5.7 % Predi abetic 5.7 - 6.4 % Diabetic >or= 6.5 % Please note range changes. CNNURSEon 01-11-2021 CNNURSE Nurse Visit (COVAMD) ---- ERROL RIVERA ([id number]) 1945 M [employer] Date Time Provider Department 01/11/21 MANFRED DOBBINS) DENISSE During your visit today, we recorded the following information about you: Allergies As of Date: 01/11/2021 Noted Allergy Reaction SEASONAL ALLERGIES 12/26/2011 16 - Unknown Date Reviewed: 09/25/2016 Reviewed by: Angel Oliveros LPN - Fully Assessed Order(s):ZarthCode SARS-COV-2 VACCINE 2D DOSE APPT [[id number]] Order #: [id number] Prescriptions as of 01/11/2021 Sig: ATORVASTATIN 80 [...] E* Take 1 capsule by mouth. * YNOGIRUX-HAMQ-RNBGK G-HYALUR A* Take by mouth. * MULTIVITAMIN-MINERA [...] [I73.9] 02/18/2013 Umbilical pain [R10.33] 09/25/2016 Encounter Status:Open Normal [facility] Office Visit: MMMon 05-28-20 17 Documentation of current medications (procedure) Done Invalid Interpretation Code [facility] [facility] Work Phone: [phone] Fall risk assessment No Invalid Interpretation Code [facility] Work Phone: [phone] Protein mass conc Done [facility] Work Phone: [phone] Lab Report: Basic Metabolic Profile (BMP)on 11-29-2016 Anion gap 9 mmol/L Invalid Interpretation Code 5-15 [facility] Work Phone: [phone] Anion gap molar conc 9 mmol/L 5-[address] [facility] Work Phone: [phone] BUN/Creatinine Ratio 17.5 RATIO Invalid Interpretation Code 10-20 [facility] Work Phone: [phone] Calcium 8.5 mg/dL Invalid Interpretation Code 8.5-10.1 [facility] Work Phone: [phone] Chloride 102 mmol/L Invalid Interpretation Code 98-107 [facility] Work Phone: [phone] CO2 28.0 mmol/L Invalid Interpretation Code 21.0-32.0 [facility] Work Phone: [phone] CO2 ppres (BldV) 28.0 mmol/L 21.0-32.0 [facility] Work Phone: [phone] Creatinine 1.03 mg/dL Invalid Interpretation Code 0.70-1.30 [facility] Work Phone: [phone] eGFR (non-black) 92 mL/min/{1.73_m2} Invalid Interpretation Code >60 [facility] [facility] Work Phone: [phone] eGFR (non-black) 76 mL/min/{1.73_m2} Invalid Interpretation Code >60 [facility] Work Phone: [phone] GFR - AA 92 mL/min >60 [facility] Work Phone: [phone] Glucose 100 mg/dL Invalid Interpretation Code 70-110 [email or web address] Work Phone: [phone] Glucose mass conc 100 mg/dL 70-110 [facility] Work Phone: [phone] Potassium 4.0 mmol/L Invalid Interpretation Code 3.5-5.1 [facility] Work Phone: [phone] Sodium 139 mmol/L Invalid Interpretation Code 136-145 [facility] Work Phone: [phone] Urea nitrogen 18 mg/dL Invalid Interpretation Code 7-18 [facility] Work Phone: [phone] Lab Report: Lipid Profileon 11-29-2016 Cholesterol 127 mg/dL Invalid Interpretation Code 200 [facility] Work Phone: [phone] HDL Cholesterol 41 mg/dL Invalid Interpretation Code [facility] Work Phone: [phone] LDL Cholesterol 59 mg/dL Invalid Interpretation Code 0-130 [facility] Work Phone: [phone] Triglyceride 136 mg/dL Invalid Interpretation Code [facility] Work Phone: [phone] low density lipoproteins 27 mg/dL Invalid Interpretation Code 5-40 [facility] Work Phone: [phone] Lab Report: Liver Profileon 11-29-2016 Alanine aminotransferase (ALT) 31 U/L Invalid Interpretation Code 12-78 [facility] Work Phone: [phone] Albumin 3.8 g/dL Invalid Interpretation Code 3.4-5.0 [facility] Work Phone: [phone] Alkaline phosphatase (ALP) 66 U/L Invalid Interpretation Code 45-117 [facility] Work Phone: [phone] ALP enzyme act/vol (Bld) 66 U/L 45-117 [facility] Work Phone: [phone] Aspartate aminotransferase (AST) 15 U/L Invalid Interpretation Code 15-37 [facility] Work Phone: [phone] Bilirubin (direct) 0.11 mg/dL Invalid Interpretation Code 0.00-0.30 [facility] Work Phone: [phone] Bilirubin (total) 0.50 mg/dL Invalid Interpretation Code 0.20-1.00 [facility] Work Phone: [phone] Globulin 3.3 g/dL Invalid Interpretation Code 2.3-3.5 [facility] Work Phone: [phone] Globulin mass conc (S) 3.3 g/dL 2.3-3.5 [facility] Work Phone: [phone] Protein 7.1 g/dL Invalid Interpretation Code 6.4-8.2 [facility] Work Phone: [phone] Lab Report: Thyroid Stim Hor stanley (TSH)on 11-29-2016 Thyroid stimulating hormone (TSH) 2.74 u[iU]/mL Invalid Interpretation Code 0.358-3.74 [facility] Work Phone: [phone] Replaced Document: CBC W/Dif f, Automatedon 11-29-2016 Basophils/100 leukocytes 0.4 % Invalid Interpretation Code 0-1 [facility] Work Phone: [phone] Basophils/100 WBC (Bld) 0.4 % 0-1 [facility] Work Phone: [phone] Eosinophils/100 leukocytes 5.1 % High 0-5 [facility] Work Phone: [phone] Eosinophils/100 WBC (Bld) 5.1 % High 0-5 [facility] Work Phone: [phone] Erythrocyte distribution width Ratio (RBC) 40.1 fL 35.1-43.9 [facility] Work Phone: [phone] Erythrocyte distribution width Ratio (RBC) 12.0 % 11.6-14.6 [facility] Work Phone: [phone] Erythrocytes (RBC) 4.59 10*6/uL Low 4.6-6.[address] [facility] Work Phone: [phone] Hematocrit (HCT) 42.7 % Invalid Interpretation Code 40-54 [facility] Work Phone: [phone] Hematocrit Volume Fraction (Bld) 42.7 % 40-54 [facility] Work Phone: [phone] Hemoglobin (HGB) 14.6 g/dL Invalid Interpretation Code 13.0-16.5 [facility] Work Phone: [phone] Immature granulocytes #/vol (Bld) 0.300 % 0.0-0.9 [facility] Work Phone: [phone] immature granulocytes, percentage of total cells, blood 0.300 % Invalid Interpretation Code 0.0-0.9 [facility] Work Phone: [phone] Lymphocytes 2.27 X10 3/UL Invalid Interpretation Code 0.83-4.51 [facility] Work [phone] Lymphocytes #/vol (Bld) 2.27 X10 3/UL 0.83-4.51 [facility] Work Phone: [phone] Lymphocytes/100 leukocytes 32.8 % Invalid Interpretation Code 19-41 [facility] Work [phone] Lymphocytes/100 WBC (Bld) 32.8 % 19-41 [facility] Work [phone] MCH 31.8 pg Invalid Interpretation Code 27.0-32.0 [facility] Work Phone: [phone] MCH Entitic mass (RBC) 31.8 pg 27.0-32.0 [facility] Work Phone: [phone] MCHC 34.2 G/GL Invalid Interpretation Code 32-36 [facility] Work Phone: [phone] MCHC mass conc (RBC) 34.2 G/GL 32-[address] [facility] Work [phone] MCV 93.0 fL Invalid Interpretation Code 80-94 [facility] Work Phone: [phone] MCV Entitic volume (RBC) 93.0 fL 80-94 [facility] Work Phone: [phone] Monocytes/100 leukocytes 7.9 % Invalid Interpretation Code 0-10 [facility] Work Phone: [phone] Monocytes/100 WBC (Bld) 7.9 % 0-10 [facility] Work Phone: [phone] neutrophil count, blood 3.7 X10 3/UL Invalid Interpretation Code 2.0-7.7 [facility] Work [phone] Neutrophils #/vol (Bld) 3.7 X10 3/UL 2.0-7.7 [facility] Work Phone: [phone] Neutrophils/100 leukocytes 53.5 % Invalid Interpretation Code 47-70 [facility] Work Phone: [phone] Neutrophils/100 WBC (Bld) 53.5 % 47-70 [facility] Work Phone: [phone] Platelet mean volume Entitic volume (Bld) 9.7 fL 6.2-12.0 [facility] Work Phone: [phone] Platelets 214 10*3/mm3 Invalid Interpretation Code 150-450 [facility] Phone: [phone] Platelets #/vol (Bld) 214 10*3/mm3 150-450 [email or web address] Work Phone: [phone] PMV by Larissa 9.7 fL Invalid Interpretation Code 6.2-12.0 [facility] Phone: [phone] RBC #/vol (Bld) 4.59 10*6/uL Low 4.6-6.2 [facility] Phone: [phone] RDW-CA 12.0 % Invalid Interpretation Code 11.6-14.6 [facility] Phone: [phone] red blood cell distribution width, size density 40.1 fL Invalid Interpretation Code 35.1-43.9 [facility] Phone: [phone] WBC #/vol (Bld) 6.9 10*3/uL 4.4-11.0 [facility] Phone: [phone] WBC (Leukocytes) 6.9 10*3/uL Invalid Interpretation Code 4.4-11.0 [facility] Phone: [phone] Office Visiton 11-28-2016 Documentation of current medications (procedure) Done Invalid Interpretation Code [facility] Phone: [phone] Replaced Document: Charles E CG Observationson 11-28-2016 EKG QRS axis 27 deg [facility] Phone: [phone] electrocardiogram interpretation Sinus Tachycardia WITHIN NORMAL LIMITS Invalid Interpretation Code [facility] Phone: [phone] GE use only - for [employer] import when terms are not otherwise specified 418 ms Invalid Interpretation Code [facility] Phone: [phone] Interpretation Sinus Tachycardia WITHIN NORMAL LIMITS [facility] Phone: [phone] P [place] 34 deg [facility] Work Phone: P wave axis, electrocardiogram 34 deg Invalid Interpretation Code [facility] Work Phone: [phone] GA Interval 164 ms [email or web address] Work Phone: [phone] GA interval, electrocardiogram 164 ms Invalid Interpretation Code [facility] Work Phone: [phone] Pulse (Heart Rate) 106 /min Invalid Interpretation Code [facility] Work Phone: [phone] QRS axis, electrocardiogram 27 deg Invalid Interpretation Code [facility] Work Phone: [phone] QRS Duration 110 ms [email or web address] Work Phone: [phone] QRS duration, electrocardiogram 110 ms Invalid Interpretation Code [facility] Work Phone: [phone] QT Interval new path ms [facility] Work Phone: [phone] QT interval, electrocardiogram new path ms Invalid Interpretation Code [facility] Work Phone: [phone] QTc Goldstein 418 ms [facility] Work Phone: [phone] T [place] -1 deg [facility] Work Phone: [phone] T wave axis, electrocardiogram -1 deg Invalid Interpretation Code [facility] Work Phone: [phone] Clinical Lists Update: [facility] [place] [facility] 11-27-2016 Left ventricular Ejection fraction 60 % Invalid Interpretation Code [facility] Phone: [phone] Office Visit: [facility] 05-21-20 16 Dietary management education, guidance, and counseling (procedure) yes Invalid Interpretation Code [facility] Phone: [phone] Office Visiton 11-10-2015 Tobacco smoking status NHIS Former smoker [facility] Work Phone: [phone] Tobacco use [facility] Former smoker Invalid Interpretation Code [facility] Work Phone: [phone] Office Visit: [facility] 02-15-20 15 cardiac risk group C Invalid Interpretation Code [facility] Work Phone: [phone] General cardiovascular disease 10Y risk [#] Chase.Linda'Ruddy N/A Invalid Interpretation Code [facility] Work Phone: [phone] Tobacco smoking status NHIS Never Invalid Interpretation Code [facility] Work Phone: Lab Report: CBCDon 08-28-201 4 Absolute Neutrophil count 3.1 X10 3/UL Normal 2.0-7.7 [facility] Work Phone: [phone] ANC 3.1 X10 3/UL Normal 2.0-7.7 [facility] Work Phone: [phone] [facility] Albumin/Globulin Ratio 1.3 {ratio} Normal 0.9-2.4 [facility] Work Phone: [phone] Replaced Document: Charles IZQUIERDO Observationson 01-18-2014 Pulse (Heart Rate) 406 ms Invalid Interpretation Code [facility] Work Phone: [phone] Lab Reporton 06-14-2013 Cholesterol to HDL Ratio 4.1 {ratio} Invalid Interpretation Code [facility] Work Phone: [phone] Lab Reporton 12-13-2011 basophils as percent of blood leukocytes, manual count 0.6 % Invalid Interpretation Code [facility] Work Phone: [phone] eosinophils as percent of blood leukocytes, manual count 3.6 % Invalid Interpretation Code [facility] Work Phone: [phone] neutrophils, band form as percent of blood leukocytes, manual count 53.0 % Invalid Interpretation Code [facility] Work Phone: [phone] Vital Signs Date Time Vital Sign Value Performing Clinician Evette domínguez 01-27-2025 10:11-0400 Body height 177.[address] Teo Veronica MD Work Phone: [facility] 01-27-2025 10:06-0400 Body mass index (BMI) [Ratio] 29.8 kg/m2 Dr. Teo Veronica MD Work Phone: [facility] 01-27-2025 10:06-0400 Body weight 94.[address] Teo Veronica MD Work Phone: [facility] 01-27-2025 10:06-0400 Diastolic blood pressure 74 mm[Hg] Dr. Teo Veronica MD Work Phone: [facility] 01-27-2025 10:06-0400 Heart rate 96 /min Dr. Teo Veronica MD Work Phone: [facility] 01-27-2025 10:06-0400 Respiratory rate 18 /min Dr. Teo Veronica MD Work Phone: [facility] 01-27-2025 10:06-0400 SaO2% (BldA) [Mass fraction] 95 % Dr. Teo Veronica MD Work Phone: [facility] 01-27-2025 10:06-0400 Systolic blood pressure 125 mm[Hg] Dr. Teo Veronica MD Work Phone: [facility] 12-02-2023 08:31-0500 Body temperature 97.2 [degF] Dr. Teo Veronica Work Phone: 7(961)953-528369 [place] [address] 12-02-2023 08:31-0500 Body weight 100.[address] Teo Veronica Work Phone: 3(654)871-100369 [place] [address] 12-02-2023 08:31-0500 Diastolic blood pressure 75 mm[Hg] Dr. Teo Veronica Work Phone: 6(430)895-099669 [place] [address] 12-02-2023 08:31-0500 Heart rate 88 /min Dr. Teo Veronica Work Phone: [facility] 12-02-2023 08:31-0500 Respiratory rate 14 /min Dr. Teo Veronica Work Phone: [facility] 12-02-2023 08:31-0500 SaO2% (BldA) [Mass fraction] 98 % Dr. Teo Veronica Work Phone: [facility] 12-02-2023 08:31-0500 Systolic blood pressure 140 mm[Hg] Dr. Teo Veronica Work Phone: [facility] 11-18-2023 08:22-0500 Body height 177.[address] Teo Veronica Work Phone: [facility] 11-18-2023 08:22-0500 Body mass index (BMI) [Ratio] 30.7 kg/m2 Dr. Teo Veronica Work Phone: 9(965)541-852438 [address] 11-18-2023 08:22-0500 Body temperature 97.6 [degF] Dr. eTo Veronica Work Phone: 1(132)733-743969 [place] [address] 11-18-2023 08:22-0500 Body weight 97.[address] Teo Veronica Work Phone: 6(120)802-403992 [place] [address] 11-18-2023 08:22-0500 Diastolic blood pressure 90 mm[Hg] Dr. Teo Veronica Work Phone: 4(597)122-885992 [place] [address] 11-18-2023 08:22-0500 Heart rate 117 /min Dr. Teo Veronica Work Phone: 8(419)712-500092 [place] [address] 11-18-2023 08:22-0500 Respiratory rate 18 /min Dr. Teo Veronica Work Phone: 3(889)886-804692 [place] [address] 11-18-2023 08:22-0500 SaO2% (BldA) [Mass fraction] 95 % Dr. Teo Veronica Work Phone: 4(796)158-085092 [place] [address] 11-18-2023 08:22-0500 Systolic blood pressure 143 mm[Hg] Dr. Teo Veronica Work Phone: 9(822)337-478892 [place] [address] 10-10-2023 10:02-0500 Body temperature 98.9 [degF] Dr. Teo Veronica Work Phone: 1(867)891-783392 [place] [address] 10-10-2023 10:02-0500 Diastolic blood pressure 82 mm[Hg] Dr. Teo Veronica Work Phone: 8(347)112-682292 [place] [address] 10-10-2023 10:02-0500 Heart rate 96 /min Dr. Teo Veronica Work Phone: 6(210)354-707569 [place] [address] 10-10-2023 10:02-0500 Respiratory rate 15 /min Dr. Teo Veronica Work Phone: 7(576)826-753192 [place] [address] 10-10-2023 10:02-0500 SaO2% (BldA) [Mass fraction] 96 % Dr. Teo Veronica Work Phone: 5(807)664-306969 [place] [address] 10-10-2023 10:02-0500 Systolic blood pressure 160 mm[Hg] Dr. Teo Veronica Work Phone: [facility] 08-14-2023 08:25-0400 Body height 177.[address] Teo Veronica Work Phone: [facility] 08-14-2023 08:25-0400 Body mass index (BMI) [Ratio] 31.7 kg/m2 Dr. Teo Veronica Work Phone: [facility] 08-14-2023 08:25-0400 Body temperature 97.8 [degF] Dr. Teo Veronica Work Phone: 9(452)198-997538 [address] 08-14-2023 08:25-0400 Body weight 100.[address] Teo Veronica Work Phone: 7(126)081-200992 [place] [address] 08-14-2023 08:25-0400 Diastolic blood pressure 79 mm[Hg] Dr. Teo Veronica Work Phone: 3(488)069-287292 [place] [address] 08-14-2023 08:25-0400 Heart rate 102 /min Dr. Teo Veronica Work Phone: 9(510)639-314538 [address] 08-14-2023 08:25-0400 Respiratory rate 17 /min Dr. Teo Veronica Work Phone: 1(933)628-029292 [place] [address] 08-14-2023 08:25-0400 SaO2% (BldA) [Mass fraction] 96 % Dr. Teo Veronica Work Phone: 5(261)788-654338 [address] 08-14-2023 08:25-0400 Systolic blood pressure 154 mm[Hg] Dr. Teo Veronica Work Phone: [facility] 06-27-2023 08:17-0400 Body mass index (BMI) [Ratio] 31 kg/m2 Dr. Teo Veronica Work Phone: [facility] 06-27-2023 08:17-0400 Body temperature 97.4 [degF] Dr. Teo Veronica Work Phone: 8(100)250-479369 [place] [address] 06-27-2023 08:17-0400 Body weight 98.[address] Teo Veronica Work Phone: [facility] 06-27-2023 08:17-0400 Diastolic blood pressure 67 mm[Hg] Dr. Teo Veronica Work Phone: [facility] 06-27-2023 08:17-0400 Heart rate 74 /min Dr. Teo Veronica Work Phone: [facility] 06-27-2023 08:17-0400 Respiratory rate 17 /min Dr. Teo Veronica Work Phone: 7(982)818-897369 [place] [address] 06-27-2023 08:17-0400 SaO2% (BldA) [Mass fraction] 95 % Dr. Teo Veronica Work Phone: 4(813)256-143869 [place] [address] 06-27-2023 08:17-0400 Systolic blood pressure 114 mm[Hg] Dr. Teo Veronica Work Phone: 3(519)535-485692 [place] [address] 06-02-2023 08:38-0400 Body mass index (BMI) [Ratio] 31.4 kg/m2 Dr. Teo Veronica Work Phone: 5(981)836-939169 [place] [address] 06-02-2023 08:38-0400 Body temperature 98.7 [degF] Dr. Teo Veronica Work Phone: 9(986)667-148192 [place] [address] 06-02-2023 08:38-0400 Body weight 99.[address] Teo Veronica Work Phone: 5(302)365-665669 [place] [address] 06-02-2023 08:38-0400 Diastolic blood pressure 56 mm[Hg] Dr. Teo Veronica Work Phone: 1(779)526-601238 [address] 06-02-2023 08:38-0400 Heart rate 96 /min Dr. Teo Veronica Work Phone: 6(434)766-459569 [place] [address] 06-02-2023 08:38-0400 Respiratory rate 17 /min Dr. Teo Veronica Work Phone: 3(595)777-389369 [place] [address] 06-02-2023 08:38-0400 SaO2% (BldA) [Mass fraction] 95 % Dr. Teo Veronica Work Phone: 1(632)856-958969 [place] [address] 06-02-2023 08:38-0400 Systolic blood pressure 120 mm[Hg] Dr. Teo Veronica Work Phone: [facility] 01-14-2023 07:50-0400 Body height 177.[address] Teo Veronica Work Phone: [facility] 01-14-2023 07:50-0400 Body mass index (BMI) [Ratio] 31.5 kg/m2 Dr. Teo Veronica Work Phone: [facility] 01-14-2023 07:50-0400 Body temperature 97.2 [degF] Dr. Teo Veronica Work Phone: [facility] 01-14-2023 07:50-0400 Body weight 99.[address] Teo Veronica Work Phone: [facility] 01-14-2023 07:50-0400 Diastolic blood pressure 79 mm[Hg] Dr. Teo Veronica Work Phone: [facility] 01-14-2023 07:50-0400 Heart rate 98 /min Dr. Teo Veronica Work Phone: [facility] 01-14-2023 07:50-0400 Respiratory rate 18 /min Dr. Teo Veronica Work Phone: [facility] 01-14-2023 07:50-0400 SaO2% (BldA) [Mass fraction] 98 % Dr. Teo Veronica Work Phone: [facility] 01-14-2023 07:50-0400 Systolic blood pressure 171 mm[Hg] Dr. Teo Veronica Work Phone: [facility] 12-02-2022 13:40-0500 Body height 177.[address] Teo Veronica Work Phone: [facility] 12-02-2022 13:40-0500 Body mass index (BMI) [Ratio] 31.5 kg/m2 Dr. Teo Veronica Work Phone: [facility] 12-02-2022 13:40-0500 Body temperature 98.7 [degF] Dr. Teo Veronica Work Phone: [facility] 12-02-2022 13:40-0500 Body weight 99.[address] Teo Veronica Work Phone: [facility] 12-02-2022 13:40-0500 Diastolic blood pressure 82 mm[Hg] Dr. Teo Veronica Work Phone: 2(457)103-454269 [place] [address] 12-02-2022 13:40-0500 Heart rate 100 /min Dr. Teo Veronica Work Phone: 9(646)533-117869 [place] [address] 12-02-2022 13:40-0500 Respiratory rate 16 /min Dr. eTo Veronica Work Phone: 8(653)335-398769 [place] [address] 12-02-2022 13:40-0500 SaO2% (BldA) [Mass fraction] 95 % Dr. Teo Veronica Work Phone: 7(824)232-818969 [place] [address] 12-02-2022 13:40-0500 Systolic blood pressure 142 mm[Hg] Dr. Teo Veronica Work Phone: [facility] 11-29-2022 09:08-0500 Body mass index (BMI) [Ratio] 31.4 kg/m2 Dr. Teo Veronica Work Phone: 1(621)653-090769 [place] [address] 11-29-2022 09:08-0500 Body weight 99.[address] Teo Veronica Work Phone: [facility] 11-29-2022 09:08-0500 Diastolic blood pressure 77 mm[Hg] Dr. Teo Veronica Work Phone: [facility] 11-29-2022 09:08-0500 Heart rate 94 /min Dr. Toe Veronica Work Phone: [facility] 11-29-2022 09:08-0500 Respiratory rate 18 /min Dr. Teo Veronica Work Phone: [facility] 11-29-2022 09:08-0500 SaO2% (BldA) [Mass fraction] 96 % Dr. Teo Veronica Work Phone: [facility] 11-29-2022 09:08-0500 Systolic blood pressure 172 mm[Hg] Dr. Teo Veronica Work Phone: [facility] 06-04-2022 09:33-0400 Diastolic blood pressure 84 mm[Hg] Dr. Teo Veronica Work Phone: [facility] Work Phone: 06-04-2022 09:33-0400 Systolic blood pressure 147 mm[Hg] Dr. Teo Veronica Work Phone: [facility] Work Phone: 06-04-2022 08:55-0400 Body height 177.[address] Teo Veronica Work Phone: [facility] Work Phone: 06-04-2022 08:55-0400 Body mass index (BMI) [Ratio] 32.8 kg/m2 Dr. Teo Veronica Work Phone: [facility] Work Phone: 06-04-2022 08:55-0400 Body weight 103.[address] Teo Veronica Work Phone: [facility] Work Phone: 06-04-2022 08:55-0400 Heart rate 98 /min Dr. Teo Veronica Work Phone: [facility] Work Phone: 06-04-2022 08:55-0400 Respiratory rate 16 /min Dr. Teo Veronica Work Phone: [facility] Work Phone: 06-04-2022 08:55-0400 SaO2% (BldA) [Mass fraction] 94 % Dr. Teo Veronica Work Phone: [facility] Work Phone: 03-04-2022 10:21-0400 Body mass index (BMI) [Ratio] 33 kg/m2 Dr. Teo Veronica Work Phone: [facility] Work Phone: 03-04-2022 10:21-0400 Body weight 104.[address] Teo Veronica Work Phone: [facility] Work Phone: 03-04-2022 10:21-0400 Diastolic blood pressure 80 mm[Hg] Dr. Teo Veronica Work Phone: [facility] Work Phone: 03-04-2022 10:21-0400 Heart rate 86 /min Dr. Teo Veronica Work Phone: [facility] Work Phone: 03-04-2022 10:21-0400 Respiratory rate 16 /min Dr. Teo Veronica Work Phone: [facility] Work Phone: 03-04-2022 10:21-0400 SaO2% (BldA) [Mass fraction] 96 % Dr. Teo Veronica Work Phone: [facility] Work Phone: 03-04-2022 10:21-0400 Systolic blood pressure 140 mm[Hg] Dr. Teo Veronica Work Phone: [facility] Work Phone: 03-04-2022 10:21-0400 Body height 177.[address] Teo Veronica Work Phone: [facility] Work Phone: 03-04-2022 10:21-0400 Body mass index (BMI) [Ratio] 33 kg/m2 Dr. Teo Veronica Work Phone: [facility] Work Phone: 03-04-2022 10:21-0400 Body weight 104.[address] Teo Veronica Work Phone: [facility] Work Phone: 03-04-2022 10:21-0400 Diastolic blood pressure 80 mm[Hg] Dr. eTo Veronica Work Phone: [facility] Work Phone: 03-04-2022 10:21-0400 Heart rate 86 /min Dr. Teo Veronica Work Phone: [facility] Work Phone: 03-04-2022 10:21-0400 Respiratory rate 16 /min Dr. Teo Veronica Work Phone: [facility] Work Phone: 03-04-2022 10:21-0400 SaO2% (BldA) [Mass fraction] 96 % Dr. Teo Veronica Work Phone: [facility] Work Phone: 03-04-2022 10:21-0400 Systolic blood pressure 140 mm[Hg] Dr. Teo Veronica Work Phone: [facility] Work Phone: 05-28-2017 14:00-0400 BMI (Body Mass Index) 32.71 kg/m2 [facility] Work Phone: 05-28-2017 14:00-0400 BP Diastolic 70 mm[Hg] [facility] Work Phone: 05-28-2017 14:00-0400 BP Systolic 130 mm[Hg] [facility] Work Phone: 05-28-2017 14:00-0400 Height 177.8 cm [facility] Work Phone: 05-28-2017 14:00-0400 Pulse (Heart Rate) 80 /min Erica [facility] Work Phone: 05-28-2017 14:00-0400 Respiratory Rate 20 /min Erica [facility] Work Phone: 05-28-2017 14:00-0400 Weight 103.42 kg Erica [facility] Work Phone: 11-28-2016 11:44-0500 Heart rate 106 /min [facility] Work Phone: 11-28-2016 11:32-0500 BMI (Body Mass Index) 33.28 kg/m2 [facility] Work Phone: 11-28-2016 11:32-0500 BP Diastolic 60 mm[Hg] Ash[facility] Work Phone: 11-28-2016 11:32-0500 BP Systolic 100 mm[Hg] [facility] Work Phone: 11-28-2016 11:32-0500 BSA (Body Surface Area) 2.23 m2 Ashlyn [facility] Work Phone: 11-28-2016 11:32-0500 Pulse (Heart Rate) 112 /min Ashlyn [facility] Work Phone: 11-28-2016 11:32-0500 Respiratory Rate 20 /min Harjoan [facility] Work Phone: 11-28-2016 11:32-0500 Weight 105.24 kg Ashlyn [facility] Work Phone: 01-18-2014 08:36-0400 Heart rate 406 ms Erica [facility] Work Phone: 03-31-2012 16:44-0400 Height 177.8 cm Ashlyn [facility] Work Phone: Encounters Encounter Date Encounter Type Care Provider Facility Start: 06-22-2025 ambulatory Teo Veronica Facility:[facility] Start: 06-08-2025 End: 06-08-[address] Teo Vreonica MD Work Phone: -Cardiovascular Services Start: 06-08-2025 End: 06-08-[address] Teo Veronica MD -Cardiovascular Services Work Phone: Start: 06-08-2025 End: 06-08-2025 ambulatory Teo Veronica Facility:[facility] Start: 2025 End: [address] Teo Veronica MD Work Phone: -Laboratory Start: 2025 End: [address] Teo Veronica MD -Laboratory Work Phone: Start: 2025 End: 2025 ambulatory [facility] Facility:[facility] Start: 06-01-2025 End: 06-01-[address] Teo Veronica MD Work Phone: -Ultrasound [facility] Start: 06-01-2025 End: 06-01-[address] Teo Veronica MD -Ultrasound [facility] Work Phone: Start: 06-01-2025 End: 06-01-2025 ambulatory [facility] Facility:[facility] Start: 05-30-2025 End: 05-30-[address] Teo Veronica MD Work Phone: -Laboratory Start: 05-30-2025 End: 05-30-[address] Teo Veronica MD -Laboratory Work Phone: Start: 05-30-2025 End: 05-30-2025 ambulatory [facility] Facility:[facility] Start: 05-09-2025 End: 05-09-[address] Teo Veronica MD Work Phone: -Laboratory Phy [facility] 3rd Flr Start: 05-09-2025 End: 05-09-[address] Teo Veronica MD -Laboratory Phy Office 3rd Flr Start: 05-09-2025 End: 05-09-2025 ambulatory [facility] Facility:[facility] Start: 03-30-2025 End: 03-30-[address] Teo Veronica MD Work Phone: [facility] Work Phone: Start: 03-30-2025 End: 03-30-[address] Teo Veronica MD -Laboratory Work Phone: Start: 03-30-2025 End: 03-30-2025 ambulatory Teo Veronica Facility:[facility] Start: 01-27-2025 End: 01-27-2025 Patient encounter procedure Lois Doll [employer] -[facility] Work Phone: Start: 01-27-2025 End: 01-27-2025 ambulatory Teo [facility] Adonis Facility:[facility] Start: 10-11-2024 End: 10-11-[facility] Start: 08-17-2024 End: 08-17-2024 ambulatory Hank Ochoaguido Facility:[facility] Start: 07-05-2024 End: 07-05-2024 ambulatory Jada Atkins NP Facility:[facility] Start: 12-25-2023 End: 12-25-[address] Teo Veronica Work Phone: [facility] Work Phone: Start: 12-25-2023 End: 12-25-[address] Teo Veronica Work Phone: [facility]-Pulmonary Services/Neurology Work Phone: Start: 12-02-2023 End: 12-02-[address] Teo Veronica Work Phone: [facility] Work Phone: Start: 12-02-2023 End: 12-02-[address] Teo Veronica Work Phone: [facility] Work Phone: Start: 11-18-2023 End: 11-18-[address] Teo Veronica Work Phone: [facility]-Pulmonary Medicine [facility] Work Phone: Start: 10-22-2023 End: 10-22-[address] Teo Veronica Work Phone: [facility] Work Phone: Start: 10-22-2023 End: 10-22-[address] [facility] Work [facility] Start: 10-10-2023 End: 10-10-[address] Teo Veronica Work Phone: [facility] Work Phone: Start: 09-10-2023 End: 09-10-[address] Teo Veronica Work Phone: [facility] Work Phone: Start: 09-10-2023 End: 09-10-[address] Teo Veronica Work Phone: [facility]-Laboratory, [facility] 3rd Flr Start: 08-14-2023 End: 08-14-[address] [facility] Work Phone: Start: 06-27-2023 End: 06-27-[address] Teo Veronica Work Phone: [facility] Work Phone: Start: 06-02-2023 End: 06-02-[address] Teo Veronica Work Phone: [facility] Work Phone: Start: 03-13-2023 End: 03-13-[address] Teo Veronica Work Phone: [facility] Work Phone: Start: 03-13-2023 End: 03-13-[address] [facility] Start: 02-17-2023 End: 02-17-[address] Teo Veronica Work Phone: [facility] Work Phone: Start: 02-17-2023 End: 02-17-[address] Teo Veronica Work Phone: [facility]-Sleep Lab Start: 01-14-2023 End: 01-14-[address] [facility] Start: 12-03-2022 Non-patient / Non-visit Dr. Baudilio Veronica Work Phone: [facility] Start: 12-03-2022 End: 12-03-[address] Teo Veronica Work Phone: [facility] Work Phone: Start: 12-03-2022 End: 12-03-[address] [facility] Start: 12-02-2022 End: 12-02-[address] Teo Veronica Work Phone: [facility] Start: 11-29-2022 End: 11-29-[address] Teo Veronica Work Phone: [facility] Start: 09-05-2022 End: 09-05-[address] Teo Veronica Work Phone: [facility]-Laboratory, Phy Office 3rd Flr Start: 08-20-2022 End: 08-20-[address] [facility] Start: 06-28-2022 Non-patient / Non-visit Dr. Baudilio Veronica Work Phone: [facility] Start: 06-28-2022 End: 06-28-[address] Teo Veronica Work Phone: [facility] Work Phone: Start: 06-28-2022 End: 06-28-[address] Teo Veronica Work Phone: [facility]-Cardiovascular Services Start: 06-04-2022 End: 06-04-[address] Teo Veronica Work Phone: [facility] Start: 03-21-2022 End: 03-21-2022 Patient encounter procedure Dr. Teo Veronica Work Phone: [facility], Phy Office 3rd Flr Start: 03-13-2022 End: 03-13-[address] [facility] Start: 03-04-2022 End: 03-04-[address] Teo Veronica Work Phone: [facility] Procedures Date Procedure Procedure Detail Performing Clinician Start: 06-01-2025 CT of abdomen and pe lvis without contrast Dr. Teo Veronica MD Work Phone: Start: 06-01-2025 Complete ultrasound of kidneys and bladder Dr. Teo Veronica MD Work Phone: Start: 05-30-2025 Electrophoresis: [id number] Dr. Teo Veronica MD Work Phone: Start: 05-30-2025 Electrophoresis: [id number] Dr. Teo Veronica MD Work Phone: Start: 05-30-2025 Electrophoresis: demetris ma globulin Dr. Teo Veronica MD Work Phone: Start: 05-09-2025 SARS-CoV-2, Influenz a & RSV (PCR) Dr. Teo Veronica MD Work Phone: Start: 03-30-2025 Vitamin D, 25-hydrox y measurement Dr. Teo Veronica MD Work Phone: Comment on above: Vitamin D StatusDefi ciency: <20 ng/mL (50nmol/L)Insufficiency: 20-30 ng/mL (50-75 nmol/L)Sufficiency: 30-100 ng/mL (75-250 nmol/L)Toxicity: >100 ng/mL (>250 nmol/L) Start: 12-25-2023 SARS-CoV-2, Influenz a & RSV (PCR) Dr. Teo Veronica Work Phone: Start: 10-22-2023 Basophil percent differential count Dr. Teo Veronica Work Phone: Start: 10-22-2023 Coronavirus COVID-[address] eTo Veronica Work Phone: Start: 10-22-2023 Influenza Types A,B Direct FA ([facility]) Dr. Teo Veronica Work Phone: Start: 09-10-2023 Diagnostic radiograp hy of abdomen Dr. Teo Veronica Work Phone: Start: 06-28-2022 Radionuclide imaging of perfusion of myocardium under exercise stress Dr. Teo Veronica Work Phone: Start: 05-28-2017 End: 05-28-2017 ASSEMBLER ADJUSTER Naz Scanlon PA-C Work Phone: Start: 05-28-2017 [...] WEST Ashby MD Start: 01-18-2014 End: 01-18-2014 GILA Scanlon PA-C Work Phone: Start: 01-18-2014 End: 01-18-2014 Electrocardiogram, complete Naz Scanlon PA-C Work Phone: Start: 01-18-2014 End: 02-07-2015 Follow Up Appt 6 months Naz valenzuela PA-C Work Phone: Start: 01-18-2014 End: 01-18-2014 Follow Up Appt Other Naz rodriges PA-C Work Phone: Start: 07-20-2013 End: 07-20-2013 Follow Up Appt 6 months Louie Villgeas Start: 07-20-2013 End: 07-20-2013 WEST Ashby MD Start: 01-06-2013 End: 01-10-2014 Arterial chirag Ashby MD Start: 01-06-2013 End: 01-06-2013 GILA Ashby MD Start: 01-06-2013 End: 01-06-2013 Follow [...] Louie Villegas Influenza Types A,B Direct FA ([facility]) Dr. Teo Veronica Work Phone: Respiratory syncytia l virus antigen assay Dr. Teo Veronica Work Phone: Plan of Treatment Date Care Activity Detail Author Start: 12-02-2022 Patient referral [facility] Work Phone: Start: 12-04-2017 End: 12-04-2017 Appointment Appointment [facility] Work Phone: Start: 05-29-2017 End: 12-04-2016 *Hepatic Function Panel *Hepatic Function Panel [facility] [employer] Work Phone: Start: 05-29-2017 End: 12-04-2016 Lipid panel [AGGREGATE] *Lipid Profile CC PCP [facility] Work Phone: Start: 05-28-2017 End: 05-28-2017 Appointment Appointment [facility] Work Phone: Start: 05-28-2017 End: 05-28-2017 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 [facility] Work Phone: Start: 05-28-2017 End: 05-28-2017 Follow Up Appt 6 months Follow Up Appt 6 months [facility] Work Phone: Start: 05-28-2017 End: 05-28-2017 Nuclear stress test -exercise Nuclear stress test -exercise [facility] Work Phone: Start: 11-28-2016 End: 11-29-2016 *BMP *BMP [facility] Work Phone: Start: 11-28-2016 End: 11-29-2016 *CBC with Differential *CBC with Differential [facility] Work Phone: Start: 11-28-2016 End: 11-29-2016 *Hepatic Function Panel *Hepatic Function Panel [facility] Work Phone: Start: 11-28-2016 End: 05-20-2017 Electrocardiogram, complete EKG (In office) [facility] Work Phone: Start: 11-28-2016 End: 11-28-2016 Follow Up Appt 6 months Follow Up Appt 6 months [facility] Work Phone: Start: 11-28-2016 End: 11-29-2016 Lipid panel [AGGREGATE] *Lipid Profile CC PCP [facility] Work Phone: Start: 11-28-2016 End: 11-28-2016 MMM MMM [facility] Work Phone: Start: 11-28-2016 End: 11-29-2016 Thyroid stimulating hormone (TSH) *TSH [facility] Work Phone: Start: 05-21-2016 End: 05-21-2016 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 [facility] Work Phone: Start: 05-21-2016 End: 05-21-2016 Follow Up Appt 6 months Follow Up Appt 6 months [facility] Work Phone: Start: 05-21-2016 End: 05-21-2016 Follow Up Appt Other Follow Up Appt Other [facility] Work Phone: Start: 11-10-2015 End: 05-20-2017 *Hepatic Function Panel *Hepatic Function Panel [facility] Work Phone: Start: 11-10-2015 End: 11-10-2015 Follow Up Appt 6 months Follow Up Appt 6 months [facility] Work Phone: Start: 11-10-2015 End: 05-22-2016 Lipid panel [AGGREGATE] *Lipid Profile CC PCP [facility] Work Phone: Start: 11-10-2015 End: 11-10-2015 MMM MMM [facility] Work Phone: Start: 02-14-2015 End: 02-14-2015 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 [facility] Work Phone: Start: 02-14-2015 End: 02-14-2015 Electrocardiogram, complete EKG (In office) [facility] Work Phone: Start: 02-14-2015 End: 02-14-2015 Follow Up Appt 6 months Follow Up Appt 6 months [facility] Work Phone: Start: 02-14-2015 End: 05-15-2016 Follow Up Appt Other Follow Up Appt Other [facility] Work Phone: Start: 12-19-2014 End: 05-15-2016 *Hepatic Function Panel *Hepatic Function Panel [facility] Work Phone: Start: 12-19-2014 End: 05-15-2016 Lipid panel [AGGREGATE] *Lipid Profile CC PCP [facility] Work Phone: Start: 08-11-2014 End: 08-11-2014 Follow Up Appt 6 months Follow Up Appt 6 months [facility] Work Phone: Start: 08-11-2014 End: 08-11-2014 MMM MMM [facility] Work Phone: Start: 01-18-2014 End: 01-18-2014 ASSEMBLER 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 [facility] Work Phone: Start: 01-18-2014 End: 01-18-2014 Electrocardiogram, complete EKG (In office) [facility] Work Phone: Start: 01-18-2014 End: [...] Phone: Start: 07-20-2013 End: 07-20-2013 MMM MMM [facility] Work Phone: Start: 01-06-2013 End: 01-06-2013 Arterial exam Arterial exam [facility] Work Phone: Start: 01-06-2013 End: 01-06-2013 ASSEMBLER 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 [facility] Work Phone: Start: 01-06-2013 End: 01-06-2013 Follow Up Appt 6 months Follow Up Appt 6 months [facility] Work Phone: Start: 09-19-2012 [...] Profile [facility] Work Phone: Continuous pulse oximetry [facility] - S mee or Plasma [facility] Patient Education LOW%20FAT%20DIET [facility] Work Phone: Patient referral [facility] Work Phone: Radionuclide imaging of perfusion of myocardium under exercise stress [facility] Work Phone: [facility] Work Phone: Immunizations Immunization Date Immunization Notes Care Provider Fa sheila 07-05-2024 influenza, injectabl e, quadrivalent, preservative free Dr. Teo Veronica MD Work Phone: [facility] 08-14-2023 influenza, injectabl e, quadrivalent, preservative free Dr. Teo Veronica Work Phone: [facility] Payers Date Payer Category Payer Self-pay [id number] 2015 Private Health Insurance [id number] [id number] 2011 Medicare [id number] Unknown [id number] 2.16.8 [id number] Unknown [id number] 2.16.8 [id number] Unknown [id number] 2.16.8 [id number] Unknown [id number] 2.16.8 [id number] Unknown [id number] 2.16.8 [id number] Unknown [id number] 2.16.8 [id number] Unknown [id number] 2.16.8 [id number] Unknown [id number] 2.16.8 [id number] Unknown [id number] 2.16.8 [id number] Unknown [id number] 2.16.8 [id number] Unknown [id number] 2.16.8 [id number] Social History Date Type Detail Facility Start: 03-04-2022 End: 12-02-2023 Tobacco smoking status AKIS Unknown if ever smoked [facility] Start: 04-08-2018 None [facility] Start: 04-08-2018 Spouse/ Signif icant Other [facility] Start: 05-19-2018 Cigarettes [facility] Start: 1945 Sex Assigned At Male W [facility] Start: 01-27-2024 Tobacco smoking status NHIS Ex-smoker (finding) [facility] Medical Equipment Procedure Code Equipment Code Equipment [...] [id number] FDA Start: 05-18-2018 Clinical Notes 01-27-2025 to 06-01-2025 Note Date & Type Note Facility 06-01-2025 Radiology Diagnostic study note [facility] Imaging Services [address] [place] [address] [id number] Kidney and Bladder MR#: [id number] Acct: [id number] Name: ERROL RIVERA Rep #: [id number] : 1945 M [id number] From: Te Hollingsworth MD PCP: Dr. Teo Veronica MD Status: MEET [place] Study:Kidney and Bladder Date of Exam: 0 06/01/25 Exam# [id number] Ordering Dr: Teo Veronica MD PROCEDURE: KIDNEY AND BLADDER N/A REASON FOR EXAM: ACUTE KI INJURY TECHNIQUE: KIDNEY AND BLADDER COMPARISON: None FINDINGS: Kidneys: Normal renal sizes, parenchymal thicknesses, and echotextures. [place]: No hydronephrosis Cysts or Masses: No cysts or large solid renal masses. Other: RIGHT Kidney Size: 9.9 cm x 5.8 cm x 5.6 cm Volume: 168.95 mL Cortical Thickness (if discernible): 15 mm (>6mm is normal) LEFT Kidney Size: 10.2 cm x 5.2 cm x 5.5 cm Volume: 151.96 mL Cortical Thickness (if discernible): 13 mm (>6mm is normal) US/Kidney and Bladder IMPRESSION: NORMAL RENAL ULTRASOUND. Reading Location: [id number] CC: Dr. Teo Veronica MD ~ Military Logistics Specialist: Signed [facility] 06-01-2025 Radiology Diagnostic study note [facility] Imaging Services [address] [place] [address] [id number] Abdomen/Pelvis without Cont MR#: [id number] Acct: [id number] Name: ERROL RIVERA Rep #: [id number] : 1945 M 79 From: Te Hollingsworth MD PCP: Dr. Teo Veronica MD Status: REG C SIRIA Study:Abdomen/Pelvis without Cont Date of Exa m: 06/01/25 Exam# [id number] Ordering Dr: Teo Veronica MD PROCEDURE: ABDOMEN/PELVIS WITHOUT CONT 06/01/2025 REASON FOR EXAM: ACUTE KI INJURY Weakness. TECHNIQUE: ABDOMEN/PELVIS WITHOUT CONT Noncontrast technique limits evaluation of the abdominal and pelvic viscera. Coronal and Sagittal reconstruction series were provided. One or more dose reduction techniques were used (e.g., Automated exposure control, adjustment of the mA and/or kV according to patient size, use of iterative reconstruction technique). RADIATION DOSE SUMMARY: CTDlvol: 15.01 mGy DLP: 821.31 mGycm COMPARISON: June 20, 2018. FINDINGS: Lung bases: Lung bases are clear. Coronary artery calcification. Moderate-sized hiatal hernia. Liver: Normal size. No obvious mass. Gallbladder: No evidence of gallstones. Spleen: Normal size. Pancreas: Diffuse fatty atrophy. Adrenals: Unremarkable Kidneys: Nonspecific bilateral perinephric stranding. No evidence of hydronephrosis. Bladder: Unremarkable Prostatic enlargement with indentation at the bladder base. Bowel: Colonic diverticulosis without diverticulitis. Appendix: The appendix is not identified. There is no inflammatory process identified in the right lower quadrant to suggest appendicitis. Lymph nodes: Unremarkable. Vasculature: Diffuse atherosclerotic changes of the abdominal aorta and the major visceral branches. Peritoneum / Retroperitoneum: Unremarkable Bones: Mild degree of degenerative changes. CT/Abdomen/Pelvis without Cont IMPRESSION: No evidence of hydronephrosis. Sigmoid diverticulosis. Coronary artery calcification. Hiatal hernia. Reading Location: [id number] CC: Dr. Teo Veronica MD ~ Military Logistics Specialist: Signed [facility] 01-27-2025 Evaluation note Diagnosis Onset Date Resolution Atherosclerotic heart disease of [place] coronary artery without angina pectoris chronic January 27, 2025 10:02am Essential (primary) hypertension chronic January 27, 2025 10:02am Hyperlipidemia chronic January 10:02am Left carotid artery stenosis chronic January 27, 2025 10:02am Peripheral vascular occlusive disease chronic January 27 10:02am [facility] Work Phone: Evaluation note* Diagnosis Onset Date Resolution Status History of ischemic stroke a cute Tension headache acute Cluster headache [facility] Work Phone: Evaluation note* Diagnosis Onset Date Resolution Status Tension headache acute Cluster headache chronic Dyspnea on exertion acute Essential (primary) hypertension chronic Hyperlipidemia chronic Peripheral vascular occlusive disease [facility] Work Phone: Evaluation note* Diagnosis Onset Date Resolution Status Dyspnea on exertion acute Essential (primary) hypertension chronic Hyperlipidemia chronic Peripheral vascular occlusive disease [facility] Work Phone: Evaluation note* Diagnosis Onset Date Resolution Status Dyspnea on exertion acute Atherosclerotic heart diseas e of [place] coronary artery without angina pectoris chronic Essential (primary) hypertension chronic Hyperlipidemia chronic Left carotid artery stenosis chronic Peripheral vascular occlusive disease chronic Fibromyalgia chronic Tension headache chronic Cluster headache resolved History of ischemic stroke r esolved [facility] Work Phone: Evaluation note* Diagnosis Onset Date Resolution Status Dyspnea on exertion acute Atherosclerotic heart diseas e of [place] coronary artery without angina pectoris chronic Essential (primary) hypertension chronic Hyperlipidemia chronic Left carotid artery stenosis chronic Peripheral vascular occlusive disease chronic Fibromyalgia chronic Tension headache chronic Cluster headache resolved History of ischemic stroke r esolved BMI 30.0-30.9,adult acute Sleep apnea acute [facility] Work Phone: Evaluation note* Diagnosis Onset Date Resolution Status BMI 30.0-30.9,adult acute Sleep apnea acute [facility] Work Phone: Evaluation note* Diagnosis Onset Date Resolution Status Fibromyalgia chronic Tension headache chronic Cluster headache resolved History of ischemic stroke r esolved Diastasis recti acute Asthma chronic BMI 30.0-30.9,adult chronic KAM (obstructive sleep apnea) chronic [facility] Work Phone: Evaluation note* Diagnosis Onset Date Resolution Status Asthma chronic BMI 30.0-30.9,adult chronic KAM (obstructive sleep apnea) chronic Acute pharyngitis acute [facility] Work Phone: Evaluation note* Diagnosis Onset Date Resolution Status Asthma chronic BMI 30.0-30.9,adult chronic KAM (obstructive sleep apnea) chronic Acute pharyngitis acute KAM (obstructive sleep apnea) chronic Hyperglycemia acute Fibromyalgia chronic Tension headache chronic Cluster headache resolved History of ischemic stroke r esolved [facility] Work Phone: Evaluation note* Diagnosis Onset Date Resolution Status Acute pharyngitis acute KAM (obstructive sleep apnea) chronic Hyperglycemia acute Fibromyalgia chronic Tension headache chronic Cluster headache resolved History of ischemic stroke r [facility] Work Phone: Evaluation noteNo assessment information available [facility] Work Phone: Reason for referral (narrative)No reason for referral information [facility] Work Phone: Summary Purpose Family History No Family History Records Found Relationship Condition Age at Onset Recorded Date/T chance father Myocardial infarction 41 Malignant neoplasm Unknown Advance Directives No Advanced Directives Records Found Advance Directive Response Recorded Date/ Time Living Will No April 18, 2021 8:56am Power of Planning Advisor No April 18 8:56am Advance Directive Response Recorded Date/ Time Living Will No April 18, 2021 7:56am Power of Planning Advisor No April 18 7:56am Advance Directive Response Recorded Date/ Time Living Will No April 18, 2021 8:56am Do you have a Healthcare Power of Planning Advisor? No April 18, 2021 8:56am Chief Complaint [...] Dyspnea on exertion Atherosclerotic heart disease of [place] coronary artery without angina pectoris Essential (primary) hypertension Hyperlipidemia Left carotid artery stenosis Peripheral vascular occlusive disease Fibromyalgia Tension headache Cluster headache History of ischemic stroke Chief Complaint 6 M FU 9 M FU Occlusion and stenosis of left carotid artery Sleep apnea SLEEP APNEA Reason for Visit Dyspnea on exertion Atherosclerotic heart disease of [place] coronary artery without angina pectoris Essential (primary) [...] Admit Date Atherosclerotic heart diseas e of [place] coronary artery without angina pectoris January 27, 2025 10:02am Essential (primary) hypertension January 182024 10:02am Hyperlipidemia January 27, 2025 10: 02am Left carotid artery stenosis January 27, 2025 10:02am Peripheral vascular occlusive disease Ap ril 2024 10:02am Chief Complaint Admit Date KIDNEY STONE June 01, 2025 12 :38pm Chief Complaint Admit Date KIDNEY STONE June 01, 2025 12 :38pm Peripheral vascular disease, unspecified June 08, 2025 10:34am Additional Source Comments (unrecognized sect ion and content) No Status Records FoundNo Status Records Found INFORMATION SOURCE (unrecogn ized section and content) DATE CREATED AUTHOR 01/27/2021 [facility] DATE CREATED AUTHOR AUTHOR'S ORGANIZ ATION 06/16/2025 [facility] Goals (unrecognized section and content) Goals may [...] Active Member Role Status Dates Dr. Teo Veronica MD Family Provider Active Dr. Teo Veronica MD Primary Care Provider Active Team Status: Inactive Member Role Status Dates Dr. Teo Veronica MD Primary Care Provider, Referring Provider Active Dr. Hank Ray MD Attending Provider Active Team Status: Inactive Member Role Status Dates Dr. Teo Veronica MD Primary Care Provider, Referring Provider Active Lois Doll SUPERVISOR AIR CONDITIONING INSTALLER, SUPERVISOR AIR CONDITIONING INSTALLER-C Attending Provider Active Team Status: Active Member Role Status Dates Dr. Teo Veronica MD Primary Care Provider Active Dr. Reinaldo Romero MD Attending Provider Active Team Status: Inactive Member Role Status Dates Dr. Teo Veronica MD Primary Care Provi tr, Attending Provider, Referring Provider Active Team Status: Inactive Member Role Status Dates Dr. Teo Veronica MD Primary Care Provider, Attending Provider Active Team Status: Inactive Member Role Status Dates Dr. Teo Veronica MD Primary Care Provider Active Lois Doll SUPERVISOR AIR CONDITIONING INSTALLER, SUPERVISOR AIR CONDITIONING INSTALLER-C Attending Provider, Referring P josue Active Team Status: Active Member Role Status Dates Dr. Teo Veronica MD Primary Care Provider Active Dr. Reinaldo Romero MD Attending Provider Active Lois Doll SUPERVISOR AIR CONDITIONING INSTALLER, SUPERVISOR AIR CONDITIONING INSTALLER-C Referring Provider Active Team Status: Inactive Member Role Status Dates Dr. Teo Veronica MD Primary Care Provider, Referring Provider Active Jada Atkins SUPERVISOR AIR CONDITIONING INSTALLER, SUPERVISOR AIR CONDITIONING INSTALLER-C Attending Provider Active Team Status: Inactive Member Role Status Dates Dr. Teo Veronica MD Primary Care Provider Active Jada Atkins SUPERVISOR AIR CONDITIONING INSTALLER, SUPERVISOR AIR CONDITIONING INSTALLER-C Attending Provider, Referrin g Provider Active Team Status: Inactive Member Role Status Dates Dr. Teo Veronica MD Primary Care Provider, Referring Provider Active Dr. Reinaldo Romero MD Attending Provider Active Team Status: Inactive Member Role Status Dates Dr. Teo Veronica MD Primary Care Provider, Referring Provider Active Gerald TINAJERO, PA Attending Provider Active Team Status: Inactive Member Role Status Dates Dr. Teo Veronica MD Primary Care Provider, Referring Provider Active Dr. Javed Crockett DO Attending Provider Active Team Status: Inactive Member Role Status Dates Dr. Teo Veronica MD Primary Care Provider Active Dr. Hank Ray MD Attending Provider, Referring Provider Active Team Status: Inactive Member Role Status Dates Dr. Teo Veronica MD Primary Care Provider Active Start: January 27, 2025 End: January 27, 2025 Dr. Teo Veronica MD Referring Provider Active Start: January 27, 2025 End: January 27, 2025 Lois Doll SUPERVISOR AIR CONDITIONING INSTALLER, SUPERVISOR AIR CONDITIONING INSTALLER-C Attending Provider Active Start: January 27, 2025 End: January 27, 2025 Team Status: Inactive Member Role Status Dates Dr. Teo Veronica MD Primary Care Provider Active Start: March 30, 2025 End: March 30, 2025 Dr. Teo Veronica MD Attending Provider Active Start: March 30, 2025 End: March 30, 2025 Dr. Teo Veronica MD Referring Provider Active Start: March 30, 2025 End: March 30, 2025 Team Status: Active Member Role/Relationship Status Dates Dr. Teo Veronica MD Family Provider Active Dr. Teo Veronica MD Primary Care Provider Active Team Status: Inactive Member Role/Relationship Status Dates Dr. Teo Veronica MD Primary Care Provider Active Start: January 27, 2025 End: January 27, 2025 Dr. Teo Veronica MD Referring Provider Active Start: January 27, 2025 End: January 27, 2025 Lois Doll SUPERVISOR AIR CONDITIONING INSTALLER, SUPERVISOR AIR CONDITIONING INSTALLER-C Attending Provider Active Start: January 27, 2025 End: January 27, 2025 Team Status: Inactive Member Role/Relationship Status Dates Dr. Teo Veronica MD Primary Care Provider Active Start: March 30, 2025 End: March 30, 2025 Dr. Teo Veronica MD Attending Provider Active Start: March 30, 2025 End: March 30, 2025 Dr. Teo Veronica MD Referring Provider Active Start: March 30, 2025 End: March 30, 2025 Team Status: Inactive Member Role/Relationship Status Dates Dr. Teo Veronica MD Primary Care Provider Active Start: May 09, 2025 End: May 09, 2025 Dr. Teo Veronica MD Attending Provider Active Start: May 09, 2025 End: May 09, 2025 Team Status: Active Member Role/Relationship Status Dates Dr. Teo Veronica MD Primary Care Provider Active Team Status: Inactive Member Role/Relationship Status Dates Dr. Teo Veronica MD Primary Care Provider Active Start: March 30, 2025 End: March 30, 2025 Dr. Teo Veronica MD Attending Provider Active Start: March 30, 2025 End: March 30, 2025 Dr. Teo Veronica MD Referring Provider Active Start: March 30, 2025 End: March 30, 2025 Team Status: Inactive Member Role/Relationship Status Dates Dr. Teo Veronica MD Primary Care Provider Active Start: May 09, 2025 End: May 09, 2025 Dr. Teo Veronica MD Attending Provider Active Start: May 09, 2025 End: May 09, 2025 Team Status: Inactive Member Role/Relationship Status Dates Dr. Teo Veronica MD Primary Care Provider Active Start: May 30, 2025 End: May 30, 2025 Dr. Teo Veronica MD Attending Provider Active Start: May 30, 2025 End: May 30, 2025 Dr. Teo Veronica MD Referring Provider Active Start: May 30, 2025 End: May 30, 2025 Team Status: Active Member Role/Relationship Status Dates Dr. Teo Veronica MD Primary Care Provider Active Start: June 01, 2025 Dr. Teo Veronica MD Attending Provider Active Start: June 01, 2025 Dr. Teo Veronica MD Referring Provider Active Start: June 01, 2025 Team Status: Active Member Role/Relationship Status Dates Dr. Teo Veronica MD Primary Care Provider Active Start: 2025 Dr. Teo Veroinca MD Attending Provider Active Start: 2025 Dr. Teo Veronica MD Referring Provider Active Start: 2025 Team Status: Inactive Member Role/Relationship Status Dates Dr. Teo Veronica MD Primary Care Provider Active Start: June 01, 2025 End: June 01, 2025 Dr. Teo Veronica MD Attending Provider Active Start: June 01, 2025 End: June 01, 2025 Dr. Teo Veronica MD Referring Provider Active Start: June 01, 2025 End: June 01, 2025 Team Status: Active Member Role/Relationship Status Dates Dr. Teo Veronica MD Primary Care Provider Active Start: June 08, 2025 Dr. Teo Veronica MD Attending Provider Active Start: June 08, 2025 Dr. Teo Veronica MD Referring Provider Active Start: June 08, 2025 Team Status: Inactive Member Role/Relationship Status Dates Dr. Teo Veronica MD Primary Care Provider Active Start: 2025 End: 2025 Dr. Teo Veronica MD Attending Provider Active Start: 2025 End: 2025 Dr. Teo Veronica MD Referring Provider Active Start: 2025 End: 2025 Team Status: Inactive Member Role/Relationship Status Dates Dr. Teo Veronica MD Primary Care Provider Active Start: June 08, 2025 End: June 08, 2025 Dr. Teo Veronica MD Attending Provider Active Start: June 08, 2025 End: June 08, 2025 Dr. Teo Veronica MD Referring Provider Active Start: June 08, 2025 End: June 08, 2025 FOR RECORDS PERTAINING TO PATIENTS WHO [...] BE BASED ON THE PRIMARY CLINICAL RECORDS. [facility] [employer] [facility]. provides no warranty or guarantee of the accuracy or completeness of information in this document.
== END | disposition home or self-care (01) ==
LOC: OPMRI 07:18
PROVIDERS: PCP Family Medicine Geriatric Medicine; Referring Provider Family Medicine Geriatric Medicine; Visit Provider Family Medicine Geriatric Medicine
DX: M54.16 Radiculopathy, lumbar region (principal)
CPT/HCPCS: 72148

== ENCOUNTER → 2025-06-22 | Outpatient (CLI) | payer MEDICARE, OTHER, SELFPAY ==
--- OUTSIDE RECORDS SUMMARY | 2025-06-22 07:00 | XMS RPT_ITS | CCD ---
Author Organization [facility] CliniSymn Care Team Providers Care Clothing Man Name Role Phone Margarita LOGAN, Carmina Willis Unavailable Unavailable Ramos, Erica Unavailable Unavailable DeFinis, Harumi Y Unavailable Unavailable Ramos, Erica Unavailable Unavailable Adonis, Dr. Teo Muller Primary Care Provider Adonis, Dr. Teo Muller Referring Provider Oziel DE LEON, MICA WASHER GLUER-C Brinda Attending Provider Dr. Costa Ashby Attending Provider Adonis, Dr. Teo Muller Primary Care Provider Adonis, Dr. Teo Muller Referring Provider Adonis, Dr. Teo Muller Primary Care Provider Adonis, Dr. Teo Muller Referring Provider Lavon DE LEON, MICA WASHER GLUER-C Lois Attending Provider Dr. Hank Ray Attending Provider Dr. Reinaldo Romero Attending Provider Adonis, Dr. Teo Muller Primary Care Provider [phone] Adonis, Dr. Teo Muller Referring Provider Lavon DE LEON, MICA WASHER GLUER-C Lois Attending Provider Dr. Hank Ray Attending Provider Dr. Reinaldo Romero Attending Provider [phone] Lavon MICA WASHER GLUER, MICA WASHER GLUER-C Lois Referring Provider Wilbert DE LEON, MICA WASHER GLUER-C Jada Attending Provider Adonis, Dr. Teo Muller Primary Care Provider Adonis, Dr. Teo Muller Referring Provider Adonis, Dr. Teo Muller Primary Care Provider Adonis, Dr. Teo Muller Referring Provider Dr. Hank Ray Attending Provider Dr. Reinaldo Romero Attending Provider Wilbert DE LEON, MICA WASHER GLUER-C Jada Attending Provider Adonis, Dr. Teo Muller Primary Care Provider Adonis, Dr. Teo Muller Referring Provider LIOR Flores Attending Provider [phone] Dr. Javed Crockett Attending Provider [phone] Dr. Hank Ray Attending Provider Adonis, Dr. Teo Muller Primary Care Provider Adonis, Dr. Teo Muller Referring Provider LIOR Flores Attending Provider Dr. Javed Crockett Attending Provider [phone] Dr. Hank Ray Attending Provider Adonis QUIÑONES, Dr. Teo Muller Primary Care Provider Dr. Teo Veronica MD, Chi Referring Provider Lois Puga Attending Provider Dr. Teo Veronica MD, Chi Attending Provider [phone] Teo Veronica MD, Chi Primary Care Provider [phone] Dr. Teo Veronica MD, Chi Referring Provider [phone] Adonis, Teo Chi Attending Unavailable Adonis, Teo [...] Attending Unavailable Adonis, Teo Chi Referring Unavailable Jada Atkins Attending Unavailable Adonis, Teo Chi Referring Unavailable Adonis, Teo Chi Primary Care Unavailable Hank Ray Attending Unavailable Adonis, Teo Chi Referring Unavailable Adonis, Teo Chi Primary Care Unavailable Adonis, Teo Chi Attending Unavailable Adonis, Teo Chi Referring Unavailable Aodnis, Teo Chi Primary Care Unavailable Adonis, Teo Chi Primary Care Unavailable Adonis, Teo Chi Attending Unavailable Adonis, Teo Chi Attending Unavailable Adonis, Teo Chi Referring Unavailable Adonis, Teo Chi Primary Care Unavailable Allergies Allergy Classification Reported Allergen(s) Allergy Type Date of Onset Reaction(s) Facility (4 sources) shellfish, unspecified; Translations: [SHELLFISH] food allergy 01-08-2011 ? [employer] Work Phone: Medications Current Medications Medication Drug Class(es) Dates Sig (Normalized) Sig (Original) [id number] 200 actuat albuterol 0.09 mg/actuat metered dose [...] Base) MCG/ACT AERS as needed ALBUTEROL SULFATE [id number] oCsta Ashby MD Start: 11-10-2015 PROAIR HFA 108 (90 Base) MCG/ACT AERS as needed ALBUTEROL SULFATE [id number] Costa Ashby MD aspirin 81 mg delayed [...] TBEC One tablet by mouth daily ASPIRIN [id number] Thelma Bean Start: 01-08-2011 take 1 tablet by santo th once daily ASPIRIN EC 81 MG TBEC One tablet by mouth daily ASPIRIN [id number] Carolyn Wright RN cilostazol 100 mg oral [...] One tablet by mouth twice daily CILOSTAZOL [id number] Costa Ashby MD Njrsgvnm-Bhavs-Jtd 149-Hyal Ac (Glucos Chond Cplx Advanced) 750 mg-100 mg- 125 mg-1.65 mg tablet (6 sources) Start: 10-10-2017 take 1 tablet by mouth twice daily before mealtime Lbzqobue-Dynpo-Scp 149-Hyal Ac (Glucos Chond Cplx Advanced) 750 mg-100 mg- 125 mg-1.65 mg tablet Active 1 {tbl} PO TWICE A DAY 0 October 10, 2017 1:00am SUPPLEMENT Start: 10-10-2017 take 1 tablet by santo th twice daily before mealtime Acqrytcj-Doqeq-Yhp 149-Hyal Ac (Glucos Chond Cplx Advanced) 750 mg-100 mg- 125 mg-1.65 mg tablet Active 1 {tbl} PO TWICE A DAY October 10, 2017 1:00am vxdjgcshupo-wnihezmyt-mgrb15 9-hyal 750 mg-100 mg-125 mg-1.65 mg tablet (10 sources) Start: 10-10-2017 take 1 tablet by mouth twice daily iolmiednjll-mbanpweje-dbtl262-hyal 750 mg-100 mg-125 mg-1.65 mg tablet Active 1 TABLET PO TWICE A DAY October 10, 2017 5:07pm Start: 10-10-2017 take 1 tablet by mouth twice daily dcttlikiqee-attzobyzb-dchv004-hyal 750 m g-100 mg-125 mg-1.65 mg tablet Active 1 TABLET PO TWICE A DAY October 10, 2017 12:00am Start: 10-10-2017 take 1 tablet by mouth twice daily lwsaxncwdni-rmsmxfzvk-pbee410-hyal 750 m g-100 mg-125 mg-1.65 mg tablet [...] needed for ALLERGIES December 08, 2018 11:43am Bklwxnwp-Rfe-Wi-Lycop en-Lutein (Centrum Silver Men) 300-600-300 mcg Tablet (5 sources) Start: 04-18-2021 take 300-600 tablets by mouth once daily Xhzpyvzh-Trx-Pu-Lyco pen-Lutein (Centrum Silver Men) 300-600-300 mcg Tablet Active 1 TABLET PO DAILY April 18, 2021 8:46am Start: 04-18-2021 take 300-600 tablets by mouth once daily Tetqywey-Ebe-Dm-Lycopen-Lutein (Centrum Silver Men) 300-600-300 mcg Tablet Active 1 TABLET PO DAILY April 17, 2021 11:00pm Start: 04-18-2021 take 300-600 tablets by mouth once daily Sbjgupch-Xwv-Lq-Lycopen-Lutein (Centrum Silver Men) 300-600-300 mcg Tablet Active 1 TABLET PO DAILY April 18, 2021 12:00am Qj-Kxr-Tnzhs-Y7-Krdfghe-Bkxm in (Centrum Silver Men) 300-600-300 mcg Tablet (11 sources) Start: 04-18-2021 Jl-Gno-Nseqm-Y7-Tbywmbw-Dwsw in (Centrum Silver Men) 300-600-300 mcg Tablet Active 1 {tbl} PO DAILY April 18, 2021 12:00am Start: 04-18-2021 take 300-600 tablets by mouth once daily Fu-Voj-Mggts-J6-Oqdbtnx-Aezora (Centrum Silver Men) 300-600-300 mcg Tablet Active 1 TABLET PO DAILY April 17, 2021 11:00pm Start: 04-18-2021 take 300-600 tablets by mouth once daily Rw-Vhj-Sazbk-N4-Bxlcorl-Jcgxlr (Centrum Silver Men) 300-600-300 mcg Tablet Active 1 TABLET PO DAILY April 18, 2021 12:00am Bouton-3 Fatty Acids (Super Bouton-3) 1,000 mg capsule (20 sources) Start: 12-02-2022 take 3 capsules by mouth twice daily Bouton-3 Fatty Acids (Super Bouton-3) 1,000 mg capsule Active 1000 mg PO TWICE A DAY December 02, 2022 2:48pm SUPPLEMENT Start: 12-02-2022 take 3 capsules by m outh twice daily Bouton-3 Fatty Acids (Super Bouton-3) 1,000 mg capsule Active 1000 mg PO TWICE A DAY December 02, 2022 2:48pm Start: 12-02-2022 take 3 capsules by m outh twice daily Bouton-3 Fatty Acids (Super Bouton-3) 1,000 mg capsule Active 1000 MG PO TWICE A DAY December 02, 2022 2:48pm Start: 12-02-2022 take 3 capsules by m outh twice daily Bouton-3 Fatty Acids (Super Bouton-3) 1,000 mg capsule Active 1000 MG PO TWICE A DAY December 02, 2022 1:48pm Start: 10-10-2017 take 3 capsules by m outh once daily Bouton-3 Fatty Acids (Super Bouton-3) 1,000 mg capsule Active 1000 MG PO daily October 10, 2017 5:09pm Start: 10-10-2017 End: 12-02-2022 take 3 capsules by mouth once daily Bouton-3 Fatty Acids (Super Bouton-3) 1,000 mg capsule Discontinued 1000 mg PO daily October 10, 2017 1:00am December 02, 2022 2:48pm SUPPLEMENT Start: 10-10-2017 End: 12-02-2022 take 3 capsules by mouth once daily Bouton-3 Fatty Acids (Super Bouton-3) 1,000 mg capsule Discontinued 1000 mg PO daily October 10, 2017 1:00am December 02, 2022 2:48pm Start: 10-10-2017 End: 12-02-2022 take 3 capsules by mouth once daily Bouton-3 Fatty Acids (Super Bouton-3) 1,000 mg capsule Discontinued 1000 MG PO daily October 10, 2017 1:00am December 02, 2022 2:48pm Start: 10-10-2017 End: 12-02-2022 take 3 capsules by mouth once daily Bouton-3 Fatty Acids (Super Bouton-3) 1,000 mg capsule Discontinued 1000 MG PO daily October 10, 2017 12:00am December 02, 2022 1:48pm Start: 10-10-2017 take 3 capsules by m [facility] once daily Bouton-3 Fatty Acids (Super Bouton-3) 1,000 mg capsule Active 1000 MG PO [...] One tablet by mouth twice daily OMEPRAZOLE [id number] Thelma Bean Start: 01-08-2011 take 1 tablet by santo th twice daily PRILOSEC 20 MG CPDR One tablet by mouth twice daily OMEPRAZOLE 51805859599 Thelma Bean tamsulosin hydrochloride 0.4 mg oral [...] evening for headache VERELAN PM 200 MG [id number] One tablet by mouth daily For cluster headaches VERAPAMIL HCL 14512902514 Thelma Bean Start: 01-08-2011 take 1 tablet by santo th once daily in the evening for headache VERELAN PM 200 MG CT37L-KES One tablet by mouth daily For cluster headaches VERAPAMIL HCL [id number] Thelma Bean Completed/Discontinued Medications Medication Drug Class(es) [...] One tablet by mouth daily AMITRIPTYLINE HCL [id number] Thelma Bean amoxicillin 500 mg oral capsule [...] Two tablets by mouth daily ATORVASTATIN CALCIUM 63191698068 Naz Scanlon PA-C Start: 01-18-2014 take 1 tablet by santo once daily LIPITOR 80 MG TABS One tablet by mouth daily ATORVASTATIN CALCIUM [id number] Costa Ashby MD Start: 01-08-2011 take 1 tablet by santo th once daily LIPITOR 40 MG TABS One tablet by mouth daily ATORVASTATIN CALCIUM 18671898610 Costa Ashby MD Beclomethasone Dipropionate (20 sources) [...] 1 puff daily as needed BUDESONIDE-FORMOTEROL FUMARATE 69570413048 Thelma Bean Start: 01-08-2011 SYMBICORT 80-4 .5 MCG/ACT AERO Inhale 1 puff daily as needed BUDESONIDE-FORMOTEROL FUMARATE 36373137765 Thelma Bean cephalexin 500 mg oral capsule [...] tablet by mouth daily GLUCOSAMINE-CHONDR OITIN CAPS 75678193226 Costa Ashby MD Start: 01-08-2011 take 1 tablet by santo once daily GLUCOSAMINE-CHONDROITIN CAPS One tablet by mouth daily GLUCOSAMINE-CHONDROITIN CAPS 27965433770 Thelma Bean clopidogrel 75 mg oral tablet [...] One tablet by mouth daily CLOPIDOGREL BISULFATE 05401729129 Costa Ashby MD Cyclosporine (Restasis) 0.05 % dropperette (13 sources) Start: 11-29-2022 End: 01-27-2024 Cyclosporine (Restasis) 0.05 % dropperette Discontinued 1 NMA OPHTHALMIC Q1November 29, 2022 1:00am January 27, 2024 10:05am Start: 11-29-2022 Cyclosporine ( Restasis) 0.05 % dropperette Active 1 DRP OPHTHALMIC Q1November 29, 2022 1:00am Start: 11-29-2022 Cyclosporine ( [...] tablet by mouth twice daily ENALAPRIL MALEATE 34955471067 Costa Ashby MD Start: 07-20-2013 take 1 tablet by santo th once daily ENALAPRIL MALEATE 10 MG TABS One tablet by mouth daily ENALAPRIL MALEATE 34541143580 Dallas Kline MD Start: 01-08-2011 take 1 tablet by santo th in the morning, then take 0.5 tablet by mouth in the evening VASOTEC 5 MG TABS 1 tablet by mouth in the morning & 1/2 tablet in the evening ENALAPRIL MALEATE 04973921366 Costa Ashby MD fluorometholone 1 mg/ml ophthalmic [...] 1 puff daily as needed FLUTICASONE FUROATE 64444937107 Thelma Bean Start: 01-08-2011 VERAMYST 27.5 MCG/SPRAY SUSP Inhale 1 puff daily as needed FLUTICASONE FUROATE 91767183346 Thelma Bean folic acid 1 mg oral [...] One tablet by mouth daily FOLIC ACID 06649061894 Thelma Bean gabapentin 300 mg oral capsule [...] the evening & 2 at night GABAPENTIN 37234140970 Thelma Bean Start: 01-08-2011 NEURONTIN 300 MG CAPS 1 tablet by mouth in the evening & 2 at night GABAPENTIN 54374424189 Thelma Bean glucosamine 1000 mg oral tablet [...] tablet Discontinued 25 mg PO DAILY 90 September 11, 2021 1:00am September 11, 2021 [...] once daily ISOSORBIDE MONONITRATE ER 30 MG [id number] One tablet by mouth daily (Imdur) ISOSORBIDE MONONITRATE 50499536287 Costa Ashby MD meloxicam 7.5 mg oral [...] once da omaira TOPROL XL 50 MG [id number]-SCB One tablet by mouth daily METOPROLOL SUCCINATE 82611605560 Costa Ashby MD Start: 01-08-2011 take 1 tablet by mouth once da omaira TOPROL XL 50 MG WX70E-RXI One tablet by mouth daily METOPROLOL SUCCINATE 33249107985 Costa Ashby MD modafinil 100 mg oral [...] TABS One tablet by mouth daily MODAFINIL 11557623217 Thelma Palma Bean MULTIPLE VITAMINS-MINERALS (3 sources) Start: 01-08-2011 take 1 tablet by mouth once daily CENTRUM SILVER TABS One tablet by mouth daily MULTIPLE VITAMINS-MINERALS 08985057583 Thelma Palma Vikas MULTIPLE VITAMINS-MINERALS (1 source) Start: 01-08-2011 take 1 tablet by mouth once daily CENTRUM SILVER TABS One tablet by mouth daily MULTIPLE VITAMINS-MINERALS 60386554904 Thelma Palma Bean Qwewnhvp-Njg-Gr-Lycopen-L utein (Centrum Silver Men) 300-600-300 mcg tablet (5 sources) Start: 10-10-2017 End: 05-27-2021 take 300-600 tablets by mouth once daily Kgyxhewf-Nmj-Wn-Lycopen-L utein (Centrum Silver Men) 300-600-300 mcg tablet Discontinued 1 TABLET PO DAILY October 10, 2017 5:06pm May 27, 2021 8:41am Start: 10-10-2017 End: 05-27-2021 take 300-600 tablets by mouth once daily Qoraqrhw-Ljx-Bi-Lycopen-Lutein (Centrum Silver Men) 300-600-300 mcg tablet Discontinued 1 TABLET PO DAILY October 10, 2017 12:00am May 27, 2021 7:41am Start: 10-10-2017 End: 05-27-2021 take 300-600 tablets by mouth once daily Loknqxgh-Oyo-Pu-Lycopen-Lutein (Centrum Silver Men) 300-600-300 mcg tablet Discontinued 1 TABLET PO DAILY October 10, 2017 1:00am May 27, 2021 8:41am Uz-Wnk-Ughpm-X3-Nyvjoio-Mlit in (Centrum Silver Men) 300-600-300 mcg tablet (11 sources) Start: 10-10-2017 End: 05-27-2021 Cf-Bym-Fnjxu-E3-Mdvnqax-Vlew in (Centrum Silver Men) 300-600-300 mcg tablet Discontinued 1 {tbl} PO DAILY 0 October 10, 2017 1:00am May 27, 2021 8:41am SUPPLEMENT Start: 10-10-2017 End: 05-27-2021 Mm-Vre-Vwgtd-W5-Alnuslt-Tzpy in (Centrum Silver Men) 300-600-300 mcg tablet Discontinued 1 {tbl} PO DAILY October 10, 2017 1:00am May 27, 2021 8:41am Start: 10-10-2017 End: 05-27-2021 take 300-600 tablets by mouth once daily Uh-Lgt-Mxefc-D4-Tpakfik-Nxqhtc (Centrum Silver Men) 300-600-300 mcg tablet Discontinued 1 TABLET PO DAILY October 10, 2017 12:00am May 27, 2021 7:41am Start: 10-10-2017 End: 05-27-2021 take 300-600 tablets by mouth once daily Lu-Gmb-Lcmbo-R5-Fdepjgn-Nksvrn (Centrum Silver Men) 300-600-300 mcg tablet Discontinued [...] 5 min up to 3 X NITROGLYCERIN 14042151909 Naz Scanlon PA-C omega-3 acid ethyl esters (group home) 1000 mg oral capsule (13 sources) Start: 11-29-2022 End: 12-02-2022 Bouton-3 Acid Ethyl Esters 1 gram capsule Discontinued 1 NMA PO TWICE A DAY November 29, 2022 1:00am December 02, 2022 2:48pm Start: 11-29-2022 End: 12-02-2022 take 1 capsule by mouth twice daily Bouton-3 Acid Ethyl Esters Discontinued 1 CAP PO TWICE A DAY November 29, 2022 1:00am December 02, 2022 2:48pm OMEGA-3 FATTY ACIDS CPDR (3 sources) Start: 01-08-2011 take 1 tablet by mouth once daily OMEGA 3 CPDR One tablet by mouth daily OMEGA-3 FATTY ACIDS CPDR 82309713789 Thelma Bean OMEGA-3 FATTY ACIDS CPDR (1 source) Start: 01-08-2011 take 1 tablet by mouth once daily OMEGA 3 CPDR One tablet by mouth daily OMEGA-3 FATTY ACIDS CPDR 14288897302 Thelma Bean predniSONE 20 mg oral tablet (12 sources) Start: 02-24-2024 End: 07-05-2024 take 3 tablets by mouth once daily at mealtime Prednisone 20 mg tablet Discontinued 60 mg PO daily 15 February 24, 2024 12:00am February 24, 2024 2:05pm administer with food or milk riboflavin 100 mg oral tablet (20 sources) Start: 10-10-2017 End: 01-27-2025 take 1 tablet by mouth twice daily Riboflavin (Vitamin B2) 100 mg tablet Discontinued 100 mg PO TWICE A DAY October 10, 2017 1:00am January 27, 2025 10:21am SUPPLEMENT Start: 01-08-2011 take 1 capsule by [facility] twice daily RIBOFLAVIN CAPS 10Mg, 200mg po BID RIBOFLAVIN CAPS 23082061121 Thelma Bean Start: 01-08-[address] sarah twice daily RIBOFLAVIN CAPS 200mg po BID RIBOFLAVIN CAPS 02040852490 Costa Ashby MD Start: 01-08-2011 take 1 capsule by mo utchrista twice daily RIBOFLAVIN CAPS 200mg po BID RIBOFLAVIN CAPS 26350548929 Costa Ashby MD Start: 01-08-2011 RIBOFLAVIN CAP S 10Mg, 200mg po BID RIBOFLAVIN CAPS 39811928216 Thelma Bean Problems Active Problems Problem Classification [...] Chronic Comment on above: 1998 right leg; [employer] and [employer] atherectomy to RLE SFA [...] Translations: [Chills (without fever)] Onset: 05-13-2025 Episodic Spondylosis; intervertebral disc disorders; other back problems (1 source) Radiculopathy, lumbar region; Translations: [Radiculopathy, lumbar region] Onset: 06-21-2025 Episodic Thyroid disorders (16 sources) Disorder of thyroid gland; Translations: [Disorder of thyroid, unspecified] 09-10-2021 Episodic Transient cerebral ischemia (16 sources) Transient cerebral ischemia; Translations: [Transient cerebral ischemic attack, unspecified] Onset: 04-07-2018 09-10-2021 Chronic Comment on above: March 2018 Unclassified (1 source) Long-term drug therapy; Translations: [Other watermelon inspector (current) drug therapy] Onset: 01-08-2011 01-08-2011 Past or Other Problems Problem Classification Problem Date Documented Da te Episodic/Chronic Blindness and vision defects (4 sources) Transient visual loss; Translations: [Transient visual loss, unspecified eye] Onset: 01-08-2011 01-08-2011 Episodic Other aftercare (3 sources) Other watermelon inspector (current) drug therapy; Translations: [Other watermelon inspector (current) drug therapy] Onset: 01-08-2011 01-08-2011 Episodic Results Test Name Value Interpretation Reference Range Facility Ankle Brachial Indexon 06-08 Ankle Brachial Index [facility] [address] [place] [address] Ankle Brachial Index 06/08/25 1053 MR#: [id number] Acct: [id number] Name: ERROL RIVERA Rep #: [id number] : 1945 80 From: Hemal Meza MD Attending Dr: Dr. Teo Veronica MD Status: [facility] Ordering Dr: Teo Veronica MD Date: 06/08/25 Location: [facility] Sex: M C Admitted: Reason For [...] CHI, MD Performed By: Iesha Cervantes RVT 06/08/25 5990 Date Hemal Meza MD CC: Dr. Teo Veronica MD Date Dictated: 06/08/25 1053 Date Transcribed: 06/08/252358 Employee Wellness/Fitness Coordinator: Signed Normal [facility] Arterial study reportOrdered By: Hemal Meza on 06-08-2025 Noninvasive arteriosclerosis study report [facility] [address] [place] [address] Ankle Brachial Index 06/08/25 1053 MR#: [id number] Acct: [id number] Name: ERROL RIVERA Rep #:[id number] : 1945 80 From: Heaml Meza MD Attending Dr: Dr. Teo Veronica MD Status: REG CLI Ordering Dr: Teo Veronica MD Date: Location: [facility] Sex: M C Admitted: Reason For [...] CHI, MD Performed By: Iesha Cervantes RVT 06/08/254 Date _ Hemal Meza MD CC: Dr. Teo Veronica MD ~ Date Dictated: 06/08/25 1053 Date Transcribed: 06/08/252358 Employee Wellness/Fitness Coordinator: Signed [facility] Other Phone: Anion gap in Serum or Plasma Ordered By: Teo Veronica on 2025 Anion gap [Moles/Vol] 11 mmol/L 03-03 [facility] BUN/creatinine ratioOrdered By: Teo Veronica on 2025 Urea nitrogen/Creatinine [Mass ratio] 24.5 mg/mg High 08-08 [facility] Basic Metabolic Profile (BMP )on 2025 BUN/CRE 24.5 RATIO High 08-08 [facility] Comment on above: Order Comment: PT NO T FASTING FOR [facility] Performed By: #### M 100.678 #### [facility] [address] [place], [address] Calcium [Mass/Vol] 9.0 mg/dL Normal 7.6-11.0 [facility] Comment on above: Order Comment: PT NO T FASTING FOR [facility] Performed By: #### M 100.678 #### [facility] [address] [place], [address] Chloride [Moles/Vol] 106 mmol/L Normal 98-108 [facility] Comment on above: Order Comment: PT NO T FASTING FOR [facility] Performed By: #### M 100.678 #### [facility] [address] [place], [address] CO2 [Moles/Vol] 23.3 mmol/L Normal 21.0-32.0 [facility] Comment on above: Order Comment: PT NO T FASTING FOR [facility] Performed By: #### M 100.678 #### [facility] [address] [place], [address] Creatinine [Mass/Vol] 1.15 mg/dL Normal 0.70-1.20 [facility] Comment on above: Order Comment: PT NO T FASTING FOR [facility] Performed By: #### M 100.678 #### [facility] [address] [place], [address] GAP 11 Normal 5-15 [facility] Comment on above: Order Comment: PT NO T FASTING FOR [facility] Performed By: #### M 100.678 #### [facility] [address] [place], [address] GFR/1.73 sq M.predicted among non-blacks MDRD (S/P/Bld) [Vol rate/Area] 65 mL/min/{1.73_m2} Normal >60 [facility] Comment on above: Order Comment: PT NO T FASTING FOR [facility] LAB[facility] Result Comment: mL/m in/1.73m2 CKD-EPI Creatinine Equation (2020) Performed By: #### M 100.678 #### [facility] [address] [place], [address] Glucose [Mass/Vol] 82 mg/dL Normal 70-99 [facility] Comment on above: Order Comment: PT NO T FASTING FOR [facility] Performed By: #### M 100.678 #### [facility] [address] [place], [address] Potassium [Moles/Vol] 4.2 mmol/L Normal 3.3-5.1 [facility] Comment on above: Order Comment: PT NO T FASTING FOR [facility] Performed By: #### M 100.678 #### [facility] [address] [place], [address] Sodium [Moles/Vol] 139 mmol/L Normal 133-145 [facility] Comment on above: Order Comment: PT NO T FASTING FOR [facility] Performed By: #### M 100.678 #### [facility] [address] [place], [place], [address] Urea nitrogen [Mass/Vol] 28 mg/dL High 4-19 [facility] Comment on above: Order Comment: PT NO T FASTING FOR [facility] Performed By: #### M 100.678 #### [facility] [address] [place], [place], [address] Carbon dioxide, total [Moles /volume] in Central venous bloodOrdered By: Teo Veronica on 2025 CO2 [Moles/Vol] 23.3 mmol/L 21.0-32.0 [facility] Chloride assayOrdered By: Baudilio Veronica on 2025 Chloride [Moles/Vol] 106 mmol/L 98-108 [facility] Glomerular filtration rate ( GFR) estimation/1.73 sq m using serum, plasma, or whole bOrdered By: Teo Veronica on 2025 GFR/1.73 sq M.predicted among non-blacks MDRD (S/P/Bld) [Vol rate/Area] 65 mL/min/{1.73_m2} >60 [facility] Comment on above: mL/min/1.73m2 CKD-EP I Creatinine Equation (2020) Potassium measurement (mass/ volume)Ordered By: Teo Veronica on 2025 Potassium (Unsp spec) [Mass/Vol] 4.2 mmol/L 3.3-5.1 [facility] Serum creatinine measurement (mass/volume)Ordered By: Teo Veronica on 2025 Creatinine [Mass/Vol] 1.15 mg/dL 0.70-1.20 [facility] Serum glucose measurement (m ass/volume)Ordered By: Teo Veronica on 2025 Glucose [Mass/Vol] 82 mg/dL 70-99 [facility] Serum or plasma calcium aneudy urement (mass/volume)Ordered By: Teo Veronica on 2025 Calcium [Mass/Vol] 9.0 mg/dL 7.6-11.0 [facility] Serum or plasma urea nitroge n measurement (mass/volume)Ordered By: Teo Veronica on 2025 Urea nitrogen [Mass/Vol] 28 mg/dL High 4-19 [facility] Sodium levelOrdered By: Teo Veronica on 2025 Sodium [Moles/Vol] 139 mmol/L 133-145 [facility] Abdomen/Pelvis without Conto n 06-01-2025 Abdomen/Pelvis without Cont [facility] [address] [place], [place] [address] Abdomen/Pelvis without Cont MR#: [id number] Acct: [id number] Name: ERROL RIVERA Rep #: [id number] : 1945 M 79 From: Vladimir dickerson MD PCP: Dr. Teo Veronica MD Status: REG CLI Study: Abdomen/Pelvis without Cont Date of Exam: 05/20 01/11 Exam# [id number] Ordering Dr: Teo Veronica MD PROCEDURE: ABDOMEN/PELVIS [...] Coronary artery calcification. Hiatal hernia. Reading Location: [id number] CC: Dr. Teo Veronica MD Employee Wellness/Fitness Coordinator: Signed Normal [facility] Anion gap in Serum or Plasma Ordered By: Teo Vreonica on 06-01-2025 Anion gap [Moles/Vol] 15 mmol/L 5-15 [facility] BUN/creatinine ratioOrdered By: Teo Veronica on 06-01-2025 Urea nitrogen/Creatinine [Mass ratio] 21.0 mg/mg High - [facility] [facility] Basic Metabolic Profile (BMP )on 06-01-2025 BUN/CRE 21.0 RATIO High 08-08 [facility] Comment on above: Performed By: #### L 500.2500 ####[facility] [address] [facility] [address] Calcium [Mass/Vol] 9.2 mg/dL Normal 7.6-11.0 [facility] Comment on above: Performed By: #### L 500.2500 ####[facility] [address] [place], [address] Chloride [Moles/Vol] 102 mmol/L Normal 98-108 [facility] Comment on above: Performed By: #### L 500.2500 ####[facility] [address] [place], [address] CO2 [Moles/Vol] 19.9 mmol/L Low 21.0-32.0 [facility] Comment on above: Performed By: #### L 500.2500 ####[facility] [address] [place], [address] Creatinine [Mass/Vol] 1.68 mg/dL High 0.70-1.20 [facility] Comment on above: Performed By: #### L 500.2500 ####[facility] [address] [place], [address] GAP 15 Normal 5-15 [facility] Comment on above: Performed By: #### L 500.2500 ####[facility] [address] [place], [address] GFR/1.73 sq M.predicted among non-blacks MDRD (S/P/Bld) [Vol rate/Area] 41 mL/min/{1.73_m2} Low >60 [facility] Comment on above: Result Comment: mL/m in/1.73m2 CKD-EPI Creatinine Equation (2020) Performed By: #### L 500.2500 ####[facility] [address] [place], [address] Glucose [Mass/Vol] 126 mg/dL High 70-99 [facility] Comment on above: Performed By: #### L 500.2500 ####[facility] [address] [place], [address] Potassium [Moles/Vol] 4.3 mmol/L Normal 3.3-5.1 [facility] Comment on above: Performed By: #### L 500.2500 ####[facility] [address] [place], [address] Sodium [Moles/Vol] 137 mmol/L Normal 133-145 [facility] Comment on above: Performed By: #### L 500.2500 ####[facility] [address] [place], [address] Urea nitrogen [Mass/Vol] 35 mg/dL High 4-19 [facility] Comment on above: Performed By: #### L 500.2500 ####[facility] [address] [place], [address] CRP, High Sensitivity 195786 on 06-01-2025 CRP, HIGH SENS 0.24 mg/L Normal 0.00-3.00 [facility] Comment on above: Result Comment: Rela tive Risk for Future Cardiovascular Event Low <1.00 Average 1.00 - 3.00 High >3.00 Performed at: - [address] [id number] [employer] Supervisor: Virgil Bolanos PhD, Phone: [phone] Performed By: #### L 3100.3450, L503.0106, L500.4050, L501.9520, L100.0100, L3100.7870, L101.9900 ####[facility] [address] [place], [address] Carbon dioxide, total [Moles /volume] in Central venous bloodOrdered By: Teo Veronica on 06-01-2025 CO2 [Moles/Vol] 19.9 mmol/L Low 21.0-32.0 [facility] Chloride assayOrdered By: Baudilio Veronica on 06-01-2025 Chloride [Moles/Vol] 102 mmol/L 98-108 [facility] Glomerular filtration rate ( GFR) estimation/1.73 sq m using serum, plasma, or whole bOrdered By: Teo Veronica on 06-01-2025 GFR/1.73 sq M.predicted among non-blacks MDRD (S/P/Bld) [Vol rate/Area] 41 mL/min/{1.73_m2} Low >60 [facility] Comment on above: mL/min/1.73m2 CKD-EP I Creatinine Equation (2020) Kidney and Bladderon 025 Kidney and Bladder [facility] Services [address] [place], [place] [address] Kidney and Bladder MR#: [id number] Acct: [id number] Name: ERROL RIVERA Rep #: [id number] : 1945 M 79 From: Vladimir dickerson MD PCP: Dr. Teo Veronica MD Status: [facility] CLI Study: Kidney and Bladder Date of Exam: 06/01/25 Exam# [id number] Ordering Dr: Teo Veronica MD PROCEDURE: KIDNEY AND BLADDER N/A REASON FOR EXAM: ACUTE KI INJURY TECHNIQUE: KIDNEY AND BLADDER COMPARISON: None FINDINGS: Kidneys: Normal renal sizes, parenchymal thicknesses, and echotextures. [place]: No hydronephrosis Cysts or Masses: No cysts [...] Bladder IMPRESSION: NORMAL RENAL ULTRASOUND. Reading Location: [id number] CC: Dr. Teo Veronica MD Employee Wellness/Fitness Coordinator: Signed Normal [facility] Potassium measurement (mass/ volume)Ordered By: Teo Veronica on 06-01-2025 Potassium (Unsp spec) [Mass/Vol] 4.3 mmol/L 3.3-5.1 [facility] Protein Electroph, Son 06-01 Albumin [Mass/Vol] 3.7 g/dL Normal 2.9-4.4 [facility] Comment on above: Performed By: #### M 100.678 #### [facility] [address] [facility] [place], [address] Albumin/Globulin [Mass ratio] 1.4 {ratio} Normal 0.7-1.7 [facility] Comment on above: Performed By: #### M 100.678 #### [facility] [address] [place], [address] ALPHA-1 GLOBUL 0.2 g/dL Normal 0.0-0.4 [facility] Comment on above: Performed By: #### M 100.678 #### [facility] [address] [facility] [place], [address] ALPHA-2 GLOBUL 0.7 g/dL Normal 0.4-1.0 [facility] Comment on above: Performed By: #### M 100.678 #### [facility] [address] [place], [address] BETA GLOBULIN 1.0 g/dL Normal 0.7-1.3 [facility] Comment on above: Performed By: #### M 100.678 #### [facility] [address] [place], [address] GAMMA GLOBULIN 0.7 g/dL Normal 0.4-1.8 [facility] Comment on above: Performed By: #### M 100.678 #### [facility] [address] [place], [address] Globulin (S) [Mass/Vol] 2.6 g/dL Normal 2.2-3.9 [facility] Comment on above: Performed By: #### M 100.678 #### [facility] [address] [place], [address] INTERPRETATION Comment Normal . [facility] Comment on above: Result Comment: Prot ein electrophoresis scan will follow via computer, mail, or supervisor publications delivery. Performed By: #### M 100.678 #### [facility] [address] [place], [address] M-SPIKE Not Observed Normal Not Observed [facility] Comment on above: Performed By: #### M 100.678 #### [facility] [address] [place], [address] NOTE: Comment Normal . [facility] Comment on above: Result Comment: The SPE pattern appears unremarkable. Evidence of monoclonal protein is not apparent. Performed at: [address] [id number] [employer] Supervisor: Virgil Bolanos PhD, Phone: [phone] Performed By: #### M 100.678 #### [facility] [address] [place], [address] Protein [Mass/Vol] 6.3 g/dL Normal 6.0-8.5 [facility] Comment on above: Performed By: #### M 826.981 #### [facility] [place], [address] Serum creatinine measurement (mass/volume)Ordered By: Teo Veronica on 06-01-2025 Creatinine [Mass/Vol] 1.68 mg/dL High 0.70-1.20 [facility] Serum glucose measurement (m ass/volume)Ordered By: Teo Veronica on 06-01-2025 Glucose [Mass/Vol] 126 mg/dL High 70-99 [facility] Serum or plasma calcium aneudy urement (mass/volume)Ordered By: Teo Veronica on 06-01-2025 Calcium [Mass/Vol] 9.2 mg/dL 7.6-11.0 [facility] Serum or plasma urea nitroge n measurement (mass/volume)Ordered By: Teo Veronica on 06-01-2025 Urea nitrogen [Mass/Vol] 35 mg/dL High 4-19 [facility] Sodium levelOrdered By: Teo Veronica on 06-01-2025 Sodium [Moles/Vol] 137 mmol/L 133-145 [facility] Absolute lymphocyte countOrd ered By: Teo Veronica on 05-30-2025 Lymphocytes Auto (Unsp spec) [#/Vol] 1.88 10*3/uL 0.83-4.51 [facility] Absolute neutrophil countOrd ered By: Teo Veronica on 05-30-2025 Neutrophils (Bld) [#/Vol] 3.3 10*3/uL 2.0-7.7 [facility] Albumin Elph [Mass/Vol]Order ed By: Teo Veronica on 05-30-2025 Albumin [Mass/Vol] 3.7 g/dL 2.9-4.4 [facility] Anion gap in Serum or Plasma Ordered By: Teo Veronica on 05-30-2025 Anion gap [Moles/Vol] 12 mmol/L 5-15 [facility] Automated lymphocyte count a s percentage of total leukocytesOrdered By: Teo Veronica on 05-30-2025 Lymphocytes/100 WBC Auto (Unsp spec) 31.5 % 19-41 [facility] BUN/creatinine ratioOrdered By: Teo Veronica on 05-30-2025 Urea nitrogen/Creatinine [Mass ratio] 13.8 mg/mg 10-20 [facility] Basophil percentageOrdered B y: Teo Veronica on 05-30-2025 Basophils/100 WBC (Bld) 0.5 % 0-1 [facility] Bilirubin, totalOrdered By: Teo Veronica on 05-30-2025 Bilirubin [Mass/Vol] 0.36 mg/dL Normal 0.00-1.30 [facility] Comment on above: Performed By: #### L 3100.3450, L503.0106, L500.4050, L501.9520, L100.0100, L3100.7870, L101.9900 ####[facility] [address] [place], [address] C-reactive protein measureme nt by high sensitivity methodOrdered By: Teo Veronica on 05-30-2025 C-reactive protein measurement by high sensitivity method 0.24 mg/L 0.00-3.00 [facility] Comment on above: Relative Risk for Fu ture Cardiovascular Event Low <1.00 Average 1.00 - 3.00 High >3.00Performed at: [facility] [place] [id number] Director: Virgil Bolanos PhD, Phone: [phone] CBC W/Diff, Automatedon 05-20 Absolute Lymph 1.88 X10 3/uL Normal 0.83-4.51 [facility] Comment on above: Performed By: #### L 3100.3450, L503.0106, L500.4050, L501.9520, L100.0100, L3100.7870, L101.9900 ####[facility] [address] [place], [address] Absolute Neut 3.3 X10 3/uL Normal 2.0-7.7 [facility] Comment on above: Performed By: #### L 3100.3450, L503.0106, L500.4050, L501.9520, L100.0100, L3100.7870, L101.9900 ####[facility] [address] [place], [address] Basophils/100 WBC (Bld) 0.5 % Normal 0-1 [facility] Comment on above: Performed By: #### L 3100.3450, L503.0106, L500.4050, L501.9520, L100.0100, L3100.7870, L101.9900 ####[facility] [address] [place], [address] Eosinophils/100 WBC (Bld) 3.9 % Normal 0-5 [facility] Comment on above: Performed By: #### L 3100.3450, L503.0106, L500.4050, L501.9520, L100.0100, L3100.7870, L101.9900 ####[facility] [address] [place], [address] Erythrocyte distribution width (RBC) [Ratio] 12.5 % Normal 11.6-14.6 [facility] Comment on above: Performed By: #### L 3100.3450, L503.0106, L500.4050, L501.9520, L100.0100, L3100.7870, L101.9900 ####[facility] [address] [place], [address] Hematocrit (Bld) [Volume fraction] 34.4 % Low 40-54 [facility] Comment on above: Performed By: #### L 3100.3450, L503.0106, L500.4050, L501.9520, L100.0100, L3100.7870, L101.9900 ####[facility] [address] [place], [address] Hemoglobin (Bld) [Mass/Vol] 11.6 g/dL Low 13.0-16.5 [facility] Comment on above: Performed By: #### L 3100.3450, L503.0106, L500.4050, L501.9520, L100.0100, L3100.7870, L101.9900 ####[facility] [address] [place], [address] IG% 0.300 Normal 0.0-0.9 [facility] Comment on above: Result Comment: IG% - Immature Granulocytes (promyelocytes, myelocytes and metamyelocytes) > 1% indicates that a LEFT SHIFT is Present. Performed By: #### L 3100.3450, L503.0106, L500.4050, L501.9520, L100.0100, L3100.7870, L101.9900 ####[facility] [address] [place], [address] Lymphocytes/100 WBC (Bld) 31.5 % Normal 19-41 [facility] Comment on above: Performed By: #### L 3100.3450, L503.0106, L500.4050, L501.9520, L100.0100, L3100.7870, L101.9900 ####[facility] [address] [place], [address] MCH (RBC) [Entitic mass] 32.0 pg Normal 27.0-32.0 [facility] Comment on above: Performed By: #### L 3100.3450, L503.0106, L500.4050, L501.9520, L100.0100, L3100.7870, L101.9900 ####[facility] [address] [place], [address] MCHC (RBC) [Mass/Vol] 33.7 g/dL Normal 32-36 [facility] Comment on above: Performed By: #### L 3100.3450, L503.0106, L500.4050, L501.9520, L100.0100, L3100.7870, L101.9900 ####[facility] [address] [place], [address] MCV (RBC) [Entitic vol] 94.8 fL High 80-94 [facility] Comment on above: Performed By: #### L 3100.3450, L503.0106, L500.4050, L501.9520, L100.0100, L3100.7870, L101.9900 ####[facility] [address] [place], [address] Monocytes/100 WBC (Bld) 8.0 % Normal 0-10 [facility] Comment on above: Performed By: #### L 3100.3450, L503.0106, L500.4050, L501.9520, L100.0100, L3100.7870, L101.9900 ####[facility] [address] [place], [address] Neutrophils/100 WBC (Bld) 55.8 % Normal 47-70 [facility] Comment on above: Performed By: #### L 3100.3450, L503.0106, L500.4050, L501.9520, L100.0100, L3100.7870, L101.9900 ####[facility] [address] [place], [address] Nucleated RBC (Bld) [#/Vol] 0 10*3/uL Normal 0-5 [facility] Comment on above: Performed By: #### L 3100.3450, L503.0106, L500.4050, L501.9520, L100.0100, L3100.7870, L101.9900 ####[facility] [address] [place], [address] Platelet mean volume (Bld) [Entitic vol] 9.9 fL Normal 6.2-12.0 [facility] Comment on above: Performed By: #### L 3100.3450, L503.0106, L500.4050, L501.9520, L100.0100, L3100.7870, L101.9900 ####[facility] [address] [place], [address] Platelets (Bld) [#/Vol] 193 10*3/uL Normal 150-450 [facility] Comment on above: Performed By: #### L 3100.3450, L503.0106, L500.4050, L501.9520, L100.0100, L3100.7870, L101.9900 ####[facility] [address] [place], [address] RBC (Bld) [#/Vol] 3.63 10*6/uL Low 4.6-6.2 [facility] Comment on above: Performed By: #### L 3100.3450, L503.0106, L500.4050, L501.9520, L100.0100, L3100.7870, L101.9900 ####[facility] [address] [place], [address] RDW SD 43.7 fl Normal 35.1-43.9 [facility] Comment on above: Performed By: #### L 3100.3450, L503.0106, L500.4050, L501.9520, L100.0100, L3100.7870, L101.9900 ####[facility] [address] [place], [address] WBC (Bld) [#/Vol] 6.0 10*3/uL Normal 4.4-11.0 [facility] Comment on above: Performed By: #### L 3100.3450, L503.0106, L500.4050, L501.9520, L100.0100, L3100.7870, L101.9900 ####[facility] [address] [place], [place], [address] Carbon dioxide, total [Moles /volume] in Central venous bloodOrdered By: Teo Veronica on 05-30-2025 CO2 [Moles/Vol] 23.4 mmol/L Normal 21.0-32.0 [facility] Comment on above: Performed By: #### L 3100.3450, L503.0106, L500.4050, L501.9520, L100.0100, L3100.7870, L101.9900 ####[facility] [address] [place], [place], [address] Chloride assayOrdered By: Baudilio Veronica on 05-30-2025 Chloride [Moles/Vol] 103 mmol/L Normal 98-108 [facility] Comment on above: Performed By: #### L 3100.3450, L503.0106, L500.4050, L501.9520, L100.0100, L3100.7870, L101.9900 ####[facility] [address] [place], [place], [id number] Comprehensive Metabolic Prof okon 05-30-2025 ALK PHOS 64 U/L Normal 40-129 [facility] Comment on above: Performed By: #### L 3100.3450, L503.0106, L500.4050, L501.9520, L100.0100, L3100.7870, L101.9900 ####[facility] [address] [place], [address] BUN/CRE 13.8 RATIO Normal 10-20 [facility] Comment on above: Performed By: #### L 3100.3450, L503.0106, L500.4050, L501.9520, L100.0100, L3100.7870, L101.9900 ####[facility] [address] [place], [address] GAP 12 Normal 5-15 [facility] Comment on above: Performed By: #### L 3100.3450, L503.0106, L500.4050, L501.9520, L100.0100, L3100.7870, L101.9900 ####[facility] [address] [place], [place], [address] Potassium [Moles/Vol] 4.1 mmol/L Normal 3.3-5.1 [facility] Comment on above: Performed By: #### L 3100.3450, L503.0106, L500.4050, L501.9520, L100.0100, L3100.7870, L101.9900 ####[facility] [address] [place], [place], [address] T PROT 6.7 g/dL Normal 5.9-8.4 [facility] Comment on above: Performed By: #### L 3100.3450, L503.0106, L500.4050, L501.9520, L100.0100, L3100.7870, L101.9900 ####[facility] [address] [place], [place], [address] Comprehensive Metabolic Prof ilOrdered By: Teo Veronica on 05-30-2025 AST [Catalytic activity/Vol] 21 U/L Normal <=37 [facility] Comment on above: Performed By: #### L 3100.3450, L503.0106, L500.4050, L501.9520, L100.0100, L3100.7870, L101.9900 ####[facility] [address] [place], [address] Eosinophil percentageOrdered By: Teo Veronica on 05-30-2025 Eosinophils/100 WBC (Bld) 3.9 % 0-5 [facility] Erythrocyte Sed Rateon 05-30 SED RATE 9 mm/hr Normal 0-20 [facility] Comment on above: Performed By: #### L 3100.3450, L503.0106, L500.4050, L501.9520, L100.0100, L3100.7870, L101.9900 ####[facility] [address] [facility] [place], [place], [address] Erythrocyte distribution wid th ratioOrdered By: Teo Adonis on 05-30-2025 Erythrocyte distribution width (RBC) [Ratio] 12.5 % 11.6-14.6 [facility] Erythrocyte distribution wid th standard deviationOrdered By: [facility] on 05-30-2025 Erythrocyte distribution width (RBC) [Ratio] 43.7 fl 35.1-43.9 [facility] Erythrocyte sedimentation ra teOrdered By: Teo Veronica on 05-30-2025 ESR (Bld) [Velocity] 9 mm/h 0-20 [facility] Glomerular filtration rate ( GFR) estimation/1.73 sq m using serum, plasma, or whole bOrdered By: Teo Veronica on 05-30-2025 GFR/1.73 sq M.predicted among non-blacks MDRD (S/P/Bld) [Vol rate/Area] 38 mL/min/{1.73_m2} Low >60 [facility] Comment on above: mL/min/1.73m2 CKD-EP I Creatinine Equation (2020) Result Comment: mL/m in/1.73m2 CKD-EPI Creatinine Equation (2020) Performed By: #### L 3100.3450, L503.0106, L500.4050, L501.9520, L100.0100, L3100.7870, L101.9900 ####[facility] [address] [place], [place], [address] Hematocrit Auto (Bld) [Volum e fraction]Ordered By: Teo Veronica on 05-30-2025 Hematocrit (Bld) [Volume fraction] 34.4 % Low 40-54 [facility] Hemoglobin measurementOrdere d By: Teo Veronica 05-30-2025 Hemoglobin (Bld) [Mass/Vol] 11.6 g/dL Low 13.0-16.5 [facility] Immature granulocytes/100 WB C Auto (Bld)Ordered By: Teo Veronica on 05-30-2025 Immature granulocytes/100 WBC (Bld) 0.300 % 0.0-0.9 [facility] Comment on above: IG% - Immature Granu locytes (promyelocytes, myelocytes and metamyelocytes) > 1% indicates that a LEFT SHIFT is Present. MCV (mean corpuscular volume ) determinationOrdered By: Teo Veronica on 05-30-2025 MCV (RBC) [Entitic vol] 94.8 fL High 80-94 [facility] Mean corpuscular hemoglobin (MCH) determinationOrdered By: Teo Veronica on 05-30-2025 MCH (RBC) [Entitic mass] 32.0 pg 27.0-32.0 [facility] Mean corpuscular hemoglobin concentration (MCHC) determinationOrdered By: Teo Veronica on 05-30-2025 MCHC (RBC) [Mass/Vol] 33.7 g/dL 32-36 [facility] Mean platelet volume determi nationOrdered By: Teo Veronica on 05-30-2025 Platelet mean volume (Bld) [Entitic vol] 9.9 fL 6.2-12.0 [facility] Monocyte percentageOrdered B y: Teo Veronica on 05-30-2025 Monocytes/100 WBC (Bld) 8.0 % 0-10 [facility] Neutrophil percentageOrdered By: Teo Veronica on 05-30-2025 Neutrophils/100 WBC (Bld) 55.8 % 47-70 [facility] No Panel InformationOrdered By: Teo Veronica on 05-30-2025 Addendum Document Comment . [facility] Comment on above: The SPE pattern appe ars unremarkable. Evidence ofmonoclonal protein is not apparent.Performed at: - [address] [id number] Director: Virgil Bolanos PhD, Phone: [phone] Nucleated red blood cell per centageOrdered By: Teo Veronica on 05-30-2025 Nucleated RBC/100 WBC (Bld) [Ratio] 0 % 0-5 [facility] Platelet countOrdered By: Baudilio Veronica on 05-30-2025 Platelets (Bld) [#/Vol] 193 10*3/uL 150-450 [facility] Potassium measurement (mass/ volume)Ordered By: Teo Veronica on 05-30-2025 Potassium (Unsp spec) [Mass/Vol] 4.1 mmol/L 3.3-5.1 [facility] Protein Fractions Elph [Inte rp]Ordered By: Teo Veronica on 05-30-2025 Protein Fractions [Interp] Comment . [facility] Comment on above: Protein electrophore sis scan will follow via computer,mail, or supervisor publications delivery. RBC Auto (Bld) [#/Vol]Ordere d By: Teo Veronica on 05-30-2025 RBC (Bld) [#/Vol] 3.63 10*6/uL Low 4.6-6.2 [facility] Serum albumin to globulin ra kari by protein electrophoresisOrdered By: Teo Veronica on 05-30-2025 Albumin/Globulin Elph [Mass ratio] 1.4 0.7-1.7 [facility] Serum creatinine measurement (mass/volume)Ordered By: Teo Veronica on 05-30-2025 Creatinine [Mass/Vol] 1.81 mg/dL High 0.70-1.20 [facility] Comment on above: Performed By: #### L 3100.3450, L503.0106, L500.4050, L501.9520, L100.0100, L3100.7870, L101.9900 ####[facility] [address] [facility] [address] [place], [place], [id number] Serum globulin measurementOr dered By: Teo Veronica on 05-30-2025 Globulin (S) [Mass/Vol] 2.4 g/dL Normal 2.2-4.2 [facility] Comment on above: Performed By: #### L 3100.3450, L503.0106, L500.4050, L501.9520, L100.0100, L3100.7870, L101.9900 ####[facility] [address] [facility] [place], [place], [address] Serum globulin measurement ( mass/volume)Ordered By: Teo Veronica on 05-30-2025 Globulin (S) [Mass/Vol] 2.6 g/dL 2.2-3.9 [facility] Serum glucose measurement (m ass/volume)Ordered By: Teo Veronica on 05-30-2025 Glucose [Mass/Vol] 146 mg/dL High 70-99 [facility] Comment on above: Performed By: #### L 3100.3450, L503.0106, L500.4050, L501.9520, L100.0100, L3100.7870, L101.9900 ####[facility] [address] [place], [address] Serum or plasma alanine levi otransferase (ALT) measurementOrdered By: Teo Veronica on 05-30-2025 ALT [Catalytic activity/Vol] 26 U/L Normal <=46 [facility] Comment on above: Performed By: #### L 3100.3450, L503.0106, L500.4050, L501.9520, L100.0100, L3100.7870, L101.9900 ####[facility] [address] [place], [address] Serum or plasma albumin aneudy urement (mass/volume)Ordered By: Teo Veronica on 05-30-2025 Albumin [Mass/Vol] 4.3 g/dL Normal 3.4-4.8 [facility] Comment on above: Performed By: #### L 3100.3450, L503.0106, L500.4050, L501.9520, L100.0100, L3100.7870, L101.9900 ####[facility] [address] [place], [place], [phone] Serum or plasma albumin/glob ulin mass ratioOrdered By: Teo Veronica on 05-30-2025 Albumin/Globulin [Mass ratio] 1.8 {ratio} Normal 0.9-2.4 [facility] Comment on above: Performed By: #### L 3100.3450, L503.0106, L500.4050, L501.9520, L100.0100, L3100.7870, L101.9900 ####[facility] [address] [place], [place], [id number] Serum or plasma alkaline jasvir sphatase measurementOrdered By: Teo Veronica on 05-30-2025 ALP [Catalytic activity/Vol] 64 U/L 40-129 [facility] Serum or plasma beta globuli n measurement by electrophoresis (mass/volume)Ordered By: Teo Veronica on 05-30-2025 Beta globulin Elph [Mass/Vol] 1.0 g/dL 0.7-1.3 [facility] Serum or plasma calcium aneudy urement (mass/volume)Ordered By: Teo Veronica on 05-30-2025 Calcium [Mass/Vol] 9.1 mg/dL Normal 7.6-11.0 [facility] Comment on above: Performed By: #### L 3100.3450, L503.0106, L500.4050, L501.9520, L100.0100, L3100.7870, L101.9900 ####[facility] [id number] [place], [place], [id number] Serum or plasma protein aneudy urement (mass/volume)Ordered By: Teo Veronica on 05-30-2025 Protein [Mass/Vol] 6.3 g/dL 6.0-8.5 [facility] Serum or plasma protein mono clonal measurement by electrophoresis (mass/volume)Ordered By: Teo Veronica on 05-30-2025 Protein.monoclonal Elph [Mass/Vol] Not Observed g/dL Not Observed [facility] Serum or plasma urea nitroge n measurement (mass/volume)Ordered By: Teo Veronica on 05-30-2025 Urea nitrogen [Mass/Vol] 25 mg/dL High 4-19 [facility] Comment on above: Performed By: #### L 3100.3450, L503.0106, L500.4050, L501.9520, L100.0100, L3100.7870, L101.9900 ####[facility] [address] [place], [place], [id number] Sodium levelOrdered By: Teo Veronica on 05-30-2025 Sodium [Moles/Vol] 139 mmol/L Normal 133-145 [facility] Comment on above: Performed By: #### L 3100.3450, L503.0106, L500.4050, L501.9520, L100.0100, L3100.7870, L101.9900 ####[facility] [address] [place], [place], [id number] TSH DL <= 0.005 mIU/L QnOrde red By: Teo Veronica on 05-30-2025 TSH Qn 1.720 uIU/mL 0.300-4.200 [facility] Thyroid Stim Hormone (TSH)on 05-30-2025 TSH 1.720 uIU/mL Normal 0.300-4.200 [facility] Comment on above: Performed By: #### L 3100.3450, L503.0106, L500.4050, L501.9520, L100.0100, L3100.7870, L101.9900 ####[facility] [address] [place], [place], [id number] Total proteinOrdered By: Teo Veronica on 05-30-2025 Protein [Mass/Vol] 6.7 g/dL 5.9-8.4 [facility] Vitamin B12 ser/plasOrdered By: Teo Veronica on 05-30-2025 Cobalamin (Vitamin B12) [Mass/Vol] 619 pg/mL Normal 180-914 [facility] Comment on above: Performed By: #### L 3100.3450, L503.0106, L500.4050, L501.9520, L100.0100, L3100.7870, L101.9900 ####[facility] [address] [place], [place], [id number] White blood cell (WBC) count Ordered By: Teo Veronica on 05-30-2025 WBC (Bld) [#/Vol] 6.0 10*3/uL 4.4-11.0 [facility] Influenza virus A and B and SARS-CoV-2 (COVID-19) and Respiratory syncytial virus RNAOrdered By: Teo Veronica on 05-09-2025 SARS-CoV-2 (COVID-19) RNA VALDO+probe Ql (Unsp spec) [facility] M100.678on 05-09-2025 M100.678 Pending SARS-CoV-2 (COVID 19) Negative INFLUENZA A Negative INFLUENZA B Negative RSV PCR Negative Normal [facility] Comment on above: Performed By: #### M 100.678 #### [facility] [address] [place], [address] Absolute lymphocyte countOrd ered By: Teo Veronica on 03-30-2025 Lymphocytes Auto (Unsp spec) [#/Vol] 1.99 10*3/uL 0.83-4.51 [facility] Absolute neutrophil countOrd ered By: [facility] 03-[facility]25 Neutrophils (Bld) [#/Vol] 3.4 10*3/uL 2.0-7.7 [facility] Anion gap in Serum or Plasma Ordered By: Teo Veronica on 03-30-2025 Anion gap [Moles/Vol] 11 mmol/L 5-15 [facility] Automated lymphocyte count a s percentage of total leukocytesOrdered By: Teo Veronica on 03-30-2025 Lymphocytes/100 WBC Auto (Unsp spec) 32.1 % 19-41 [facility] BUN/creatinine ratioOrdered By: [facility] on 03-30-2025 Urea nitrogen/Creatinine [Mass ratio] 16.2 mg/mg 10-20 [facility] Basophil percentageOrdered B y: Teo Veronica on 03-30-2025 Basophils/100 WBC (Bld) 0.5 % 0-1 [facility] Bilirubin, totalOrdered By: Teo Veronica on 03-30-2025 Bilirubin [Mass/Vol] 0.22 mg/dL 0.00-1.30 [facility] CBC W/Diff, Automatedon 03-20 Absolute Lymph 1.99 X10 3/uL Normal 0.83-4.51 [facility] Comment on above: Performed By: #### L 506.1001, L501.9520, L500.4050, L100.0100 #### [facility] [address] [place], [address] Absolute Neut 3.4 X10 3/uL Normal 2.0-7.7 [facility] Comment on above: Performed By: #### L 506.1001, L501.9520, L500.4050, L100.0100 #### [facility] [address] [place], [address] Basophils/100 WBC (Bld) 0.5 % Normal 0-1 [facility] Comment on above: Performed By: #### L 506.1001, L501.9520, L500.4050, L100.0100 #### [facility] [address] [place], [address] Eosinophils/100 WBC (Bld) 4.5 % Normal 0-5 [facility] Comment on above: Performed By: #### L 506.1001, L501.9520, L500.4050, L100.0100 #### [facility] [address] [place], [address] Erythrocyte distribution width (RBC) [Ratio] 12.6 % Normal 11.6-14.6 [facility] Comment on above: Performed By: #### L 506.1001, L501.9520, L500.4050, L100.0100 #### [facility] [address] [place], [address] Hematocrit (Bld) [Volume fraction] 35.9 % Low 40-54 [facility] Comment on above: Performed By: #### L 506.1001, L501.9520, L500.4050, L100.0100 #### [facility] [address] [place], [address] Hemoglobin (Bld) [Mass/Vol] 12.2 g/dL Low 13.0-16.5 [facility] Comment on above: Performed By: #### L 506.1001, L501.9520, L500.4050, L100.0100 #### [facility] [address] [place], [address] IG% 0.200 Normal 0.0-0.9 [facility] Comment on above: Result Comment: IG% - Immature Granulocytes (promyelocytes, myelocytes and metamyelocytes) > 1% indicates that a LEFT SHIFT is Present. Performed By: #### L 506.1001, L501.9520, L500.4050, L100.0100 #### [facility] [address] [place], [address] Lymphocytes/100 WBC (Bld) 32.1 % Normal 19-41 [facility] Comment on above: Performed By: #### L 506.1001, L501.9520, L500.4050, L100.0100 #### [facility] [address] [place], [address] MCH (RBC) [Entitic mass] 31.8 pg Normal 27.0-32.0 [facility] Comment on above: Performed By: #### L 506.1001, L501.9520, L500.4050, L100.0100 #### [facility] [address] [place], [address] MCHC (RBC) [Mass/Vol] 34.0 g/dL Normal 32-36 [facility] Comment on above: Performed By: #### L 506.1001, L501.9520, L500.4050, L100.0100 #### [facility] [address] [place], [address] MCV (RBC) [Entitic vol] 93.5 fL Normal 80-94 [facility] Comment on above: Performed By: #### L 506.1001, L501.9520, L500.4050, L100.0100 #### [facility] [address] [place], [address] Monocytes/100 WBC (Bld) 8.2 % Normal 0-10 [facility] Comment on above: Performed By: #### L 506.1001, L501.9520, L500.4050, L100.0100 #### [facility] [address] [place], [address] Neutrophils/100 WBC (Bld) 54.5 % Normal 47-70 [facility] Comment on above: Performed By: #### L 506.1001, L501.9520, L500.4050, L100.0100 #### [facility] [address] [place], [address] Nucleated RBC (Bld) [#/Vol] 0 10*3/uL Normal 0-5 [facility] Comment on above: Performed By: #### L 506.1001, L501.9520, L500.4050, L100.0100 #### [facility] [address] [place], [address] Platelet mean volume (Bld) [Entitic vol] 9.4 fL Normal 6.2-12.0 [facility] Comment on above: Performed By: #### L 506.1001, L501.9520, L500.4050, L100.0100 #### [facility] [address] [place], [address] Platelets (Bld) [#/Vol] 183 10*3/uL Normal 150-450 [facility] Comment on above: Performed By: #### L 506.1001, L501.9520, L500.4050, L100.0100 #### [facility] [address] [place], [address] RBC (Bld) [#/Vol] 3.84 10*6/uL Low 4.6-6.2 [facility] Comment on above: Performed By: #### L 506.1001, L501.9520, L500.4050, L100.0100 #### [facility] [address] [place], [address] RDW SD 43.3 fl Normal 35.1-43.9 [facility] Comment on above: Performed By: #### L 506.1001, L501.9520, L500.4050, L100.0100 #### [facility] [address] [place], [address] WBC (Bld) [#/Vol] 6.2 10*3/uL Normal 4.4-11.0 [facility] Comment on above: Performed By: #### L 506.1001, L501.9520, L500.4050, L100.0100 #### [facility] [address] [place], [address] Carbon dioxide, total [Moles /volume] in Central venous bloodOrdered By: Teo Veronica on 03-30-2025 CO2 [Moles/Vol] 24.0 mmol/L 21.0-32.0 [facility] Chloride assayOrdered By: Baudilio Veronica on 03-30-2025 Chloride [Moles/Vol] 104 mmol/L 98-108 [facility]abolic Prof ilon 03-30-2025 Albumin [Mass/Vol] 4.5 g/dL Normal 3.4-4.8 [facility] Comment on above: Performed By: #### L 506.1001, L501.9520, L500.4050, L100.0100 #### [facility] [address] [place], [address] Albumin/Globulin [Mass ratio] 1.7 {ratio} Normal 0.9-2.4 [facility] Comment on above: Performed By: #### L 506.1001, L501.9520, L500.4050, L100.0100 #### [facility] [address], [address] ALK PHOS 75 U/L Normal 40-129 [facility] Comment on above: Performed By: #### L 506.1001, L501.9520, L500.4050, L100.0100 #### [facility] [address] [place], [address] ALT [Catalytic activity/Vol] 30 U/L Normal <=46 [facility] Comment on above: Performed By: #### L 506.1001, L501.9520, L500.4050, L100.0100 #### [facility] [address] [place], [address] AST [Catalytic activity/Vol] 25 U/L Normal <=37 [facility] Comment on above: Performed By: #### L 506.1001, L501.9520, L500.4050, L100.0100 #### [facility] [address] [place], [address] Bilirubin [Mass/Vol] 0.22 mg/dL Normal 0.00-1.30 [facility] Comment on above: Performed By: #### L 506.1001, L501.9520, L500.4050, L100.0100 #### [facility] [address], [address] BUN/CRE 16.2 RATIO Normal 10-20 [facility] Comment on above: Performed By: #### L 506.1001, L501.9520, L500.4050, L100.0100 #### [facility] [address] [place], [address] Calcium [Mass/Vol] 9.0 mg/dL Normal 7.6-11.0 [facility] Comment on above: Performed By: #### L 506.1001, L501.9520, L500.4050, L100.0100 #### [facility] [address] [place], [address] Chloride [Moles/Vol] 104 mmol/L Normal 98-108 [facility] Comment on above: Performed By: #### L 506.1001, L501.9520, L500.4050, L100.0100 #### [facility] [address] [place], [address] CO2 [Moles/Vol] 24.0 mmol/L Normal 21.0-32.0 [facility] Comment on above: Performed By: #### L 506.1001, L501.9520, L500.4050, L100.0100 #### [facility] [address] [place], [address] Creatinine [Mass/Vol] 1.34 mg/dL High 0.70-1.20 [facility] Comment on above: Performed By: #### L 506.1001, L501.9520, L500.4050, L100.0100 #### [facility] [address] [place], [address] GAP 11 Normal 5-15 [facility] Comment on above: Performed By: #### L 506.1001, L501.9520, L500.4050, L100.0100 #### [facility] [address] [place], [address] GFR/1.73 sq M.predicted among non-blacks MDRD (S/P/Bld) [Vol rate/Area] 54 mL/min/{1.73_m2} Low >60 [facility] Comment on above: Result Comment: mL/m in/1.73m2 CKD-EPI Creatinine Equation (2020) Performed By: #### L 506.1001, L501.9520, L500.4050, L100.0100 #### [facility] [address] [place], [address] Globulin (S) [Mass/Vol] 2.6 g/dL Normal 2.2-4.2 [facility] Comment on above: Performed By: #### L 506.1001, L501.9520, L500.4050, L100.0100 #### [facility] [address] [place], [address] Glucose [Mass/Vol] 112 mg/dL High 70-99 [facility] Comment on above: Performed By: #### L 506.1001, L501.9520, L500.4050, L100.0100 #### [facility] [address] [place], [address] Potassium [Moles/Vol] 4.5 mmol/L Normal 3.3-5.1 [facility] Comment on above: Performed By: #### L 506.1001, L501.9520, L500.4050, L100.0100 #### [facility] [address] [place], [address] Sodium [Moles/Vol] 139 mmol/L Normal 133-145 [facility] Comment on above: Performed By: #### L 506.1001, L501.9520, L500.4050, L100.0100 #### [facility] [address] [place], [address] T PROT 7.1 g/dL Normal 5.9-8.4 [facility] Comment on above: Performed By: #### L 506.1001, L501.9520, L500.4050, L100.0100 #### [facility] [address] [place], [address] Urea nitrogen [Mass/Vol] 22 mg/dL High 4-19 [facility] Comment on above: Performed By: #### L 506.1001, L501.9520, L500.4050, L100.0100 #### [facility] [place], [address] Eosinophil percentageOrdered By: Teo Veronica on 03-30-2025 Eosinophils/100 WBC (Bld) 4.5 % 0-5 [facility] Erythrocyte distribution wid th ratioOrdered By: Teo Adonis 03-30-2025 Erythrocyte distribution width (RBC) [Ratio] 12.6 % 11.6-14.6 [facility] Erythrocyte distribution wid th standard deviationOrdered By: Teo Adonis on 03-30-2025 Erythrocyte distribution width (RBC) [Ratio] 43.3 fl 35.1-43.9 [facility] Glomerular filtration rate ( GFR) estimation/1.73 sq m using serum, plasma, or whole bOrdered By: Teo Adonis on 03-30-2025 GFR/1.73 sq M.predicted among non-blacks MDRD (S/P/Bld) [Vol rate/Area] 54 mL/min/{1.73_m2} Low >60 [facility] Comment on above: mL/min/1.73m2 CKD-EP I Creatinine Equation (2020) Hematocrit Auto (Bld) [Volum e fraction]Ordered By: Teo Adonis 03-30-2025 Hematocrit (Bld) [Volume fraction] 35.9 % Low 40-54 [facility] Hemoglobin measurementOrdere d By: Teo Veronica 03-30-2025 Hemoglobin (Bld) [Mass/Vol] 12.2 g/dL Low 13.0-16.5 [facility] Immature granulocytes/100 WB C Auto (Bld)Ordered By: Teo Veronica 03-30-2025 Immature granulocytes/100 WBC (Bld) 0.200 % 0.0-0.9 [facility] Comment on above: IG% - Immature Granu locytes (promyelocytes, myelocytes and metamyelocytes) > 1% indicates that a LEFT SHIFT is Present. Laboratory - Chemistry and C hemistry - challengeOrdered By: Teo Adonis 03-30-2025 AST [Catalytic activity/Vol] 25 U/L <38 [facility] MCV (mean corpuscular volume ) determinationOrdered By: Teo Veronica 03-30-2025 MCV (RBC) [Entitic vol] 93.5 fL 80-94 [facility] Mean corpuscular hemoglobin (MCH) determinationOrdered By: Teo Veronica on 03-30-2025 MCH (RBC) [Entitic mass] 31.8 pg 27.0-32.0 [facility] Mean corpuscular hemoglobin concentration (MCHC) determinationOrdered By: Teo Veronica on 03-30-2025 MCHC (RBC) [Mass/Vol] 34.0 g/dL 32-36 [facility] Mean platelet volume determi nationOrdered By: Teo Veronica on 03-30-2025 Platelet mean volume (Bld) [Entitic vol] 9.4 fL 6.2-12.0 [facility] Monocyte percentageOrdered B y: Teo Veronica on 03-30-2025 Monocytes/100 WBC (Bld) 8.2 % 0-10 [facility] Neutrophil percentageOrdered By: Teo Veronica on 03-30-2025 Neutrophils/100 WBC (Bld) 54.5 % 47-70 [facility] Nucleated red blood cell per centageOrdered By: Teo Veronica on 03-30-2025 Nucleated RBC/100 WBC (Bld) [Ratio] 0 % 0-5 [facility] Platelet countOrdered By: Baudilio Veronica on 03-30-2025 Platelets (Bld) [#/Vol] 183 10*3/uL 150-450 [facility] Potassium measurement (mass/ volume)Ordered By: Teo Veronica on 03-30-2025 Potassium (Unsp spec) [Mass/Vol] 4.5 mmol/L 3.3-5.1 [facility] RBC Auto (Bld) [#/Vol]Ordere d By: Teo Veronica on 03-30-2025 RBC (Bld) [#/Vol] 3.84 10*6/uL Low 4.6-6.2 [facility] Serum creatinine measurement (mass/volume)Ordered By: Teo Veronica on 03-30-2025 Creatinine [Mass/Vol] 1.34 mg/dL High 0.70-1.20 [facility] Serum globulin measurementOr dered By: Teo Veronica on 03-30-2025 Globulin (S) [Mass/Vol] 2.6 g/dL 2.2-4.2 [facility] Serum glucose measurement (m ass/volume)Ordered By: Teo Veronica on 03-30-2025 Glucose [Mass/Vol] 112 mg/dL High 70-99 [facility] Serum or plasma alanine levi otransferase (ALT) measurementOrdered By: Teo Veronica on 03-30-2025 ALT [Catalytic activity/Vol] 30 U/L <47 [facility] Serum or plasma albumin aneudy urement (mass/volume)Ordered By: Teo Veronica on 03-30-2025 Albumin [Mass/Vol] 4.5 g/dL 3.4-4.8 [facility] Serum or plasma albumin/glob ulin mass ratioOrdered By: Teo Veronica on 03-30-2025 Albumin/Globulin [Mass ratio] 1.7 {ratio} 0.9-2.4 [facility] Serum or plasma alkaline jasvir sphatase measurementOrdered By: Teo Veronica on 03-30-2025 ALP [Catalytic activity/Vol] 75 U/L 40-129 [facility] Serum or plasma calcium aneudy urement (mass/volume)Ordered By: Teo Veronica on 03-30-2025 Calcium [Mass/Vol] 9.0 mg/dL 7.6-11.0 [facility] Serum or plasma urea nitroge n measurement (mass/volume)Ordered By: Teo Veronica on 03-30-2025 Urea nitrogen [Mass/Vol] 22 mg/dL High 4-19 [facility] Sodium levelOrdered By: Teo Veronica on 03-30-2025 Sodium [Moles/Vol] 139 mmol/L 133-145 [facility] TSH DL <= 0.005 mIU/L QnOrde red By: Teo Veronica on 03-30-2025 TSH Qn 3.150 uIU/mL 0.300-4.200 [facility] Thyroid Stim Hormone (TSH)on 03-30-2025 TSH 3.150 uIU/mL Normal 0.300-4.200 [facility] Comment on above: Performed By: #### L 506.1001, L501.9520, L500.4050, L100.0100 #### [facility] [address] [place], [place], [address] Total proteinOrdered By: Teo Veronica on 03-30-2025 Protein [Mass/Vol] 7.1 g/dL 5.9-8.4 [facility] Vitamin D,25 Hydroxyon 03-30 Vitamin D 25-OH 32.6 ng/mL Normal 30-100 [facility] Comment on above: Result Comment: Brianna min D Status Deficiency: <20 ng/mL (50nmol/L) Insufficiency: 20-30 ng/mL (50-75 nmol/L) Sufficiency: 30-100 ng/mL (75-250 nmol/L) Toxicity: >100 ng/mL (>250 nmol/L) Performed By: #### L 506.1001, L501.9520, L500.4050, L100.0100 #### [facility] [address] [place], [place], [address] White blood cell (WBC) count Ordered By: Teo Veronica on 03-30-2025 WBC (Bld) [#/Vol] 6.2 10*3/uL 4.4-11.0 [facility] Cardiology Visit Reporton Cardiology Visit Report [facility] [address] [place] [address] OFFICE VISIT Date of Service: 01/27/25 MR#: [id number] Acct: [id number] Name: ERROL RIVERA Rep #: [id number] : 1945 Provider: JESSICA alfaro Age/Sex: 79/M Location[place] [facility] [place] Status: Signed HPI HPI History of Present [...] 95 Intake Visit Reasons: 1 Y FU [employer] Required: No Is patient in pain?: No Allergies No Known Allergies Allergy (Verified 01/27/25 10:11) Medications ???Medication ???Instructions ???Recorded ???Confirmed ???Type glucosamine-chondro [id number] 1 tab PO BID SUPPLEMENT 10/10/17 01/27/25 History 750 mg-100 mg-125 mg-1.65 mg tablet (Glucosamine Chondroit Complx Advan) omeprazole 20 mg capsule,delayed 20 mg PO BID GERD 04/08/18 5 History release albuterol sulfate 90 mcg/actuation 1 - 2 puff inhalation Q6H PRN W[place] N 06/20/18 01/27/25 History aerosol inhaler Wheezing aspirin 81 mg tablet,delayed 81 mg PO DAILY 12/08/18 01/27/25 H istory release (Adult Low Dose Aspirin) loratadine 10 mg tablet (Claritin) 10 mg PO QDAY PRN ALLERGIES 11/2001/27/25 History cilostazol 100 mg tablet 100 mg PO .QD PAD 09/01/20 5 History levothyroxine 25 mcg tablet 25 mcg PO DAILY 09/01/20 01/27/25 History erzjnsid-bs-xzzdo 300 mcg-K 60 1 tab PO DAILY 04/18/21 01/27/25 H istory mcg-lycop 600 mcg-lutein 300 mcg tablet (Centrum Silver Men) tamsulosin 0.4 mg capsule 0.4 mg PO QHS 09/11/21 01/27/25 Hi story omega-3 fatty acids 1,000 mg 1,000 mg PO BID SUPPLEMENT 3 01/27/25 History capsule (Super Bouton-3) enalapril maleate 20 mg tablet 20 mg [...] 80 mg tablet See Rx Instructions .Route 01/27/25 Rx .COMPLEX cluster headaches #225 tabs Ejection fraction %: 60 Have you fallen in the past year?: No Nurse's Note: patient refuses to go over medications, he cant pronounce them or oly not wish to carry a list, [facility] Medical History History of ischemic stroke [...] wall myocardial infarction Atherosclerotic heart disease of [place] coronary artery without angina pectoris Asthma Hay fever Arthritis Surgical History History of left-sided carotid endarterectomy (05/07/18) History of herniorrhaphy History of left heart catheterization (05/2002) History of emma (more content not included)... Normal [facility] CBC W/Diff, Automatedon 12-2 -2023 Absolute Lymph 1.90 X10 3/uL Normal 0.83-4.51 [facility] Comment on above: Performed By: #### L 506.1000, L501.9520, L100.0100, L500.4050 #### [facility] [address] [place], [address] Absolute Neut 3.8 X10 3/uL Normal 2.0-7.7 [facility] Comment on above: Performed By: #### L 506.1000, L501.9520, L100.0100, L500.4050 #### [facility] [address] [place], [address] Basophils/100 WBC (Bld) 0.4 % Normal 0-1 [facility] Comment on above: Performed By: #### L 506.1000, L501.9520, L100.0100, L500.4050 #### [facility] [address] [place], [address] Eosinophils/100 WBC (Bld) 6.8 % High 0-5 [facility] Comment on above: Performed By: #### L 506.1000, L501.9520, L100.0100, L500.4050 #### [facility] [address] [place], [address] Erythrocyte distribution width (RBC) [Ratio] 12.0 % Normal 11.6-14.6 [facility] Comment on above: Performed By: #### L 506.1000, L501.9520, L100.0100, L500.4050 #### [facility] [address] [place], [address] Hematocrit (Bld) [Volume fraction] 42.3 % Normal 40-54 [facility] Comment on above: Performed By: #### L 506.1000, L501.9520, L100.0100, L500.4050 #### [facility] [address] [place], [address] Hemoglobin (Bld) [Mass/Vol] 14.3 g/dL Normal 13.0-16.5 [facility] Comment on above: Performed By: #### L 506.1000, L501.9520, L100.0100, L500.4050 #### [facility] [address] [place], [address] IG% 0.100 Normal 0.0-0.9 [facility] Comment on above: Result Comment: IG% - Immature Granulocytes (promyelocytes, myelocytes and metamyelocytes) > 1% indicates that a LEFT SHIFT is Present. Performed By: #### L 506.1000, L501.9520, L100.0100, L500.4050 #### [facility] [address] [place], [address] Lymphocytes/100 WBC (Bld) 27.6 % Normal 19-41 [facility] Comment on above: Performed By: #### L 506.1000, L501.9520, L100.0100, L500.4050 #### [facility] [address] [place], [address] MCH (RBC) [Entitic mass] 31.4 pg Normal 27.0-32.0 [facility] Comment on above: Performed By: #### L 506.1000, L501.9520, L100.0100, L500.4050 #### [facility] [address] [place], [address] MCHC (RBC) [Mass/Vol] 33.8 g/dL Normal 32-36 [facility] Comment on above: Performed By: #### L 506.1000, L501.9520, L100.0100, L500.4050 #### [facility] [address] [place], [address] MCV (RBC) [Entitic vol] 93.0 fL Normal 80-94 [facility] Comment on above: Performed By: #### L 506.1000, L501.9520, L100.0100, L500.4050 #### [facility] [address] [place], [address] Monocytes/100 WBC (Bld) 10.0 % Normal 0-10 [facility] Comment on above: Performed By: #### L 506.1000, L501.9520, L100.0100, L500.4050 #### [facility] [address] [place], [address] Neutrophils/100 WBC (Bld) 55.1 % Normal 47-70 [facility] Comment on above: Performed By: #### L 506.1000, L501.9520, L100.0100, L500.4050 #### [facility] [address] [place], [address] Nucleated RBC (Bld) [#/Vol] 0 10*3/uL Normal 0-5 [facility] Comment on above: Performed By: #### L 506.1000, L501.9520, L100.0100, L500.4050 #### [facility] [address] [place], [address] Platelet mean volume (Bld) [Entitic vol] 9.9 fL Normal 6.2-12.0 [facility] Comment on above: Performed By: #### L 506.1000, L501.9520, L100.0100, L500.4050 #### [facility] [address] [place], [address] Platelets (Bld) [#/Vol] 199 10*3/uL Normal 150-450 [facility] Comment on above: Performed By: #### L 506.1000, L501.9520, L100.0100, L500.4050 #### [facility] [address] [place], [address] RBC (Bld) [#/Vol] 4.55 10*6/uL Low 4.6-6.2 [facility] Comment on above: Performed By: #### L 506.1000, L501.9520, L100.0100, L500.4050 #### [facility] [address] [place], [address] RDW SD 41.1 fl Normal 35.1-43.9 [facility] Comment on above: Performed By: #### L 506.1000, L501.9520, L100.0100, L500.4050 #### [facility] [address] [place], [address] WBC (Bld) [#/Vol] 6.9 10*3/uL Normal 4.4-11.0 [facility] Comment on above: Performed By: #### L 506.1000, L501.9520, L100.0100, L500.4050 #### [facility] [address] [place], [address] Comprehensive Metabolic [facility] 10-11-2024 Albumin [Mass/Vol] 3.7 g/dL Normal 3.2-5.0 [facility] Comment on above: Performed By: #### L 506.1000, L501.9520, L100.0100, L500.4050 ####[facility] [address] [place], [address] Albumin/Globulin [Mass ratio] 1.0 {ratio} Normal 0.9-2.4 [facility] Comment on above: Performed By: #### L 506.1000, L501.9520, L100.0100, L500.4050 ####[facility] [address] [place], [address] ALK P 71 U/L Normal 45-117 [facility] Comment on above: Performed By: #### L 506.1000, L501.9520, L100.0100, L500.4050 ####[facility] [address] [place], [address] ALT [Catalytic activity/Vol] 28 U/L Normal 16-61 [facility] Comment on above: Performed By: #### L 506.1000, L501.9520, L100.0100, L500.4050 ####[facility] [address] [place], [address] AST [Catalytic activity/Vol] 17 U/L Normal 15-37 [facility] Comment on above: Performed By: #### L 506.1000, L501.9520, L100.0100, L500.4050 ####[facility] [address] [place], [address] Bilirubin [Mass/Vol] 0.50 mg/dL Normal 0.20-1.00 [facility] Comment on above: Result Comment: For patients on eltrombopag therapy, use of Dimension [place] TBIL is not recommended. Performed By: #### L 506.1000, L501.9520, L100.0100, L500.4050 ####[facility] [address] [place], [address] BUN/CRE 14.5 RATIO Normal 10-20 [facility] Comment on above: Performed By: #### L 506.1000, L501.9520, L100.0100, L500.4050 ####[facility] [address] [place], [address] CA,Total 9.4 mg/dL Normal 8.5-10.1 [facility] Comment on above: Performed By: #### L 506.1000, L501.9520, L100.0100, L500.4050 ####[facility] [address] [place], [address] Chloride [Moles/Vol] 103 mmol/L Normal 98-107 [facility] Comment on above: Performed By: #### L 506.1000, L501.9520, L100.0100, L500.4050 ####[facility] [address] [place], [address] CO2 [Moles/Vol] 30.0 mmol/L Normal 21.0-32.0 [facility] Comment on above: Performed By: #### L 506.1000, L501.9520, L100.0100, L500.4050 ####[facility] [address] [place], [address] Creatinine [Mass/Vol] 1.17 mg/dL Normal 0.70-1.30 [facility] Comment on above: Result Comment: The validity of the calculated GFR GFRAA in patients over 70 years has not been determined. Clinical correlation is essential. Performed By: #### L 506.1000, L501.9520, L100.0100, L500.4050 ####[facility] [address] [place], [address] EST GFR - AA 78 mL/min Normal >60 [facility] Comment on above: Result Comment: Afri can Barbadian GFR Calc Performed By: #### L 506.1000, L501.9520, L100.0100, L500.4050 ####[facility] [address] [place], [address] GAP 6 Normal 5-15 [facility] Comment on above: Performed By: #### L 506.1000, L501.9520, L100.0100, L500.4050 ####[facility] [address] [place], [address] GFR/1.73 sq M.predicted among non-blacks MDRD (S/P/Bld) [Vol rate/Area] 64 mL/min/{1.73_m2} Normal >60 [facility] Comment on above: Result Comment: Non- GFR Calc Performed By: #### L 506.1000, L501.9520, L100.0100, L500.4050 ####[facility] [address] [place], [address] Globulin (S) [Mass/Vol] 3.7 g/dL Normal 2.2-4.2 [facility] Comment on above: Performed By: #### L 506.1000, L501.9520, L100.0100, L500.4050 ####[facility] [address] [place], [address] Glucose [Mass/Vol] 107 mg/dL High 74-106 [facility] Comment on above: Result Comment: Fast ing Glucose result from 100 to 125 mg/dL suggests IMPAIRED HOMEOSTASIS per A.D.A. criteria. Performed By: #### L 506.1000, L501.9520, L100.0100, L500.4050 ####[facility] [address] [place], [address] Potassium [Moles/Vol] 3.7 mmol/L Normal 3.5-5.1 [facility] Comment on above: Performed By: #### L 506.1000, L501.9520, L100.0100, L500.4050 ####[facility] [address] [place], [address] Sodium [Moles/Vol] 139 mmol/L Normal 136-145 [facility] Comment on above: Performed By: #### L 506.1000, L501.9520, L100.0100, L500.4050 ####[facility] [address] [place], [address] T PROT 7.4 g/dL Normal 6.4-8.2 [facility] Comment on above: Performed By: #### L 506.1000, L501.9520, L100.0100, L500.4050 ####[facility] [address] [place], [address] Urea nitrogen [Mass/Vol] 17 mg/dL Normal 7-18 [facility] Comment on above: Performed By: #### L 506.1000, L501.9520, L100.0100, L500.4050 ####[facility] [address] [place], [address] Thyroid Stim Hormone (TSH)on 10-11-2024 TSH 2.210 uIU/mL Normal 0.358-3.740 [facility] Comment on above: Performed By: #### L 506.1000, L501.9520, L100.0100, L500.4050 ####[facility] [address] [place], [address] Vitamin D,25 Hydroxyon 10-11 Vitamin D 25-OH 30.2 ng/mL Normal [facility] Comment on above: Result Comment: Brianna min D 25(OH) Status Range Deficiency <20 ng/mL (50nmol/L) Insufficiency 20 - 30 ng/mL (50 - 75 nmol/L) Sufficiency 30 - 100 ng/mL (75 - 250 nmol/L) Toxicity >100 ng/mL (>250 nmol/L) Performed By: #### L 506.1000, L501.9520, L100.0100, L500.4050 ####[facility] [address] [place], [address] Neurology Visit Reporton Neurology Visit Report [facility] [address], [address] [place], [place] [address] OFFICE VISIT Date of Service: 08/17/24 MR#: [id number] Acct: [id number] Name: ERROL RIVERA Rep #: [id number] : 1945 Provider: Dr. Hank pearl MD Age/Sex: 79/M [place] [facility] [place] Status: Signed HPI HPI Chief Complaint: sore [...] a mild stenosis (less than 50%). Normal igiugig of [place] without a demonstrated aneurysm or [...] than 50%). (more content not included)... Normal [facility] Pulmonary Visit Reporton Pulmonary Visit Report [facility] [place] [address] [place] [address] OFFICE VISIT Date of Service: 07/05/24 MR#: [id number] Acct: [id number] Name: NICOLEERROLAllison SUAREZ Rep #: [id number] : 1945 Provider: JESSICA Atkins Age/Sex: 79/M Location: [facility] [place] Status: Signed Assessment and Plan Assessment and [...] symptoms in the meantime. 30 minutes spent wqpo-[id number] discussing with the patient today. He was [...] Plan Details Follow Up: 6 Months ([facility]) HPI 3 M FU Chief Complaint: [...] brachial Po (more content not included)... Normal [facility] - Microbiology an d Antimicrobial susceptibilityOrdered By: Teo Veronica on 12-25-2023 SARS-CoV-2 (COVID-19) RNA VALDO+probe Ql (Unsp spec) [facility] Basophil percentageOrdered B y: Hank Ray on 12-02-2023 Chloride [Moles/Vol] 106 mmol/L 98-107 [facility] Glucose [Mass/Vol] 114 mg/dL 74-106 [facility] Comment on above: Fasting Glucose resu lt from 100 to 125 mg/dL suggests IMPAIRED HOMEOSTASIS per A.D.A. criteria. Potassium [Moles/Vol] 3.5 mmol/L 3.5-5.1 [facility] Sodium [Moles/Vol] 142 mmol/L 136-145 [facility] - Chemistry and C hemistry - challengeOrdered By: Hank Ray on 12-02-2023 CO2 [Moles/Vol] 28.0 mmol/L 21.0-32.0 [facility] Urea nitrogen/Creatinine [Mass ratio] 13.4 mg/mg 10-20 [facility] No Panel InformationOrdered By: Hank Ray on 12-02-2023 Estimated GFR (MDRD) Amer 82 mL/min >60 [facility] Comment on above: GFR Calc Estimated GFR (MDRD) Non-Af Amer 68 mL/min >60 [facility] Comment on above: Non- GFR Calc Serum or plasma calcium aneudy urement (mass/volume)Ordered By: Hank Ray on 12-02-2023 Calcium [Mass/Vol] 8.9 mg/dL 8.5-10.1 [facility] Serum or plasma creatinine m easurement (mass/volume)Ordered By: Hank Ray on 12-02-2023 Creatinine [Mass/Vol] 1.12 mg/dL 0.70-1.30 [facility] Comment on above: The validity of the calculated GFR & GFRAA in patients over 70 years has not been determined. Clinical correlation is essential. Serum or plasma urea nitroge n measurement (mass/volume)Ordered By: Hank Ray on 12-02-2023 Urea nitrogen [Mass/Vol] 15 mg/dL 7-18 [facility] Thin prep Papanicolaou smear with manual screeningOrdered By: Hank Ray on 12-02-2023 Thin prep Papanicolaou smear with manual screening 8 5-15 [facility] Whole blood hemoglobin A1c/t otal hemoglobin ratio (mass fraction)Ordered By: Hank Ray on 12-02-2023 HbA1c (Bld) [Mass fraction] 6.2 % 3.8-5.6 [facility] Comment on above: Normal < 5.7 % Predi abetic 5.7 - 6.4 % Diabetic >or= 6.5 % Please note range changes. Basophil percentageOrdered B y: Teo Veronica on 10-22-2023 Basophil percentage [facility] Basophil percentage [facility] - Microbiology an d Antimicrobial susceptibilityOrdered By: Teo Veronica on 10-22-2023 SARS-CoV-2 (COVID-19) RNA VALDO+probe Ql (Unsp spec) [facility] SARS-CoV-2 (COVID-19) RNA VALDO+probe Ql (Unsp spec) [facility] No Panel InformationOrdered By: Teo Veronica on 10-22-2023 Influenza Types A,B Direct FA (DEVON) [facility] Influenza Types A,B Direct FA (DEVON) [facility] - Microbiology an d Antimicrobial susceptibilityon 10-10-2023 S. pyogenes Ag IA Ql (Unsp spec) Negative [facility] Absolute lymphocyte countOrd ered By: Teo Veronica on 09-10-2023 Lymphocytes Auto (Unsp spec) [#/Vol] 1.70 10*3/uL 0.83-4.51 [facility] Basophil percentageOrdered B y: Teo Veronica on 09-10-2023 Basophils/100 WBC (Bld) 0.5 % 0-1 [facility] Bilirubin [Mass/Vol] 0.50 mg/dL 0.20-1.00 [facility] Comment on above: For patients on eltr ombopag therapy, use of Dimension [place] TBIL is not recommended. Chloride [Moles/Vol] 104 mmol/L 98-107 [facility] Cholesterol [Mass/Vol] 127 mg/dL <200 [facility] Comment on above: <200 mg/dL Desirable 200-240 mg/dL Borderline >240 mg/dL High Risk Eosinophils/100 WBC (Bld) 3.8 % 0-5 [facility] Glucose [Mass/Vol] 158 mg/dL 74-106 [facility] Comment on above: Fasting Glucose resu lt greater than or equal to 126 mg/dL suggests DIABETES MELLITUS per A.D.A. criteria. Neutrophils (Bld) [#/Vol] 3.4 10*3/uL 2.0-7.7 [facility] Neutrophils/100 WBC (Bld) 58.2 % 47-70 [facility] Potassium [Moles/Vol] 3.5 mmol/L 3.5-5.1 [facility] Protein [Mass/Vol] 7.4 g/dL 6.4-8.2 [facility] Sodium [Moles/Vol] 139 mmol/L 136-145 [facility] Triglyceride [Mass/Vol] 120 mg/dL <199 [facility] Comment on above: The drugs N-Acetylcy steine and Metamizole may falsely depress this assay.Serum Triglycerides Reference Interval Normal <150 mg/dL Borderline high 150 - 199 mg/dL High 200 - 499 mg/dL Very High > or = 500 mg/dL WBC (Bld) [#/Vol] 5.8 10*3/uL 4.4-11.0 [facility] Blood erythrocytes count (nu mber/volume)Ordered By: Teo Veronica on 09-10-2023 RBC (Bld) [#/Vol] 4.34 10*6/uL 4.6-6.2 [facility] Blood hemoglobin measurement (mass/volume)Ordered By: Teo Veronica on 09-10-2023 Hemoglobin (Bld) [Mass/Vol] 13.5 g/dL 13.0-16.5 [facility] Blood lymphocytes/100 leukoc ytesOrdered By: Teo Veronica on 09-10-2023 Lymphocytes/100 WBC (Bld) 29.4 % 19-41 [facility] Blood monocytes/100 leukocyt esOrdered By: Teo Veronica on 09-10-2023 Monocytes/100 WBC (Bld) 7.8 % 0-10 [facility] Blood platelet mean volumeOr dered By: Teo Veronica on 09-10-2023 Platelet mean volume (Bld) [Entitic vol] 10.0 fL 6.2-12.0 [facility] Determination of erythrocyte mean corpuscular volume (MCV)Ordered By: Teo Veronica on 09-10-2023 MCV (RBC) [Entitic vol] 94.9 fL 80-94 [facility] Hematocrit Auto (Bld) [Volum e fraction]Ordered By: Teo Veronica on 09-10-2023 Hematocrit (Bld) [Volume fraction] 41.2 % 40-54 [facility] - Chemistry and C hemistry - challengeOrdered By: Teo Adonis on 09-10-2023 ALP [Catalytic activity/Vol] 71 U/L 45-117 [facility] ALT [Catalytic activity/Vol] 34 U/L 16-61 [facility] CO2 [Moles/Vol] 29.0 mmol/L 21.0-32.0 [facility] Globulin (S) [Mass/Vol] 3.8 g/dL 2.2-4.2 [facility] Urea nitrogen/Creatinine [Mass ratio] 9.1 mg/mg 10-20 [facility] - Hematology and Cell countsOrdered By: Teo Veronica on 09-10-2023 Erythrocyte distribution width (RBC) [Entitic vol] 42.5 fL 35.1-43.9 [facility] Erythrocyte distribution width (RBC) [Ratio] 12.1 % 11.6-14.6 [facility] Immature granulocytes/100 WBC (Bld) 0.300 % 0.0-0.9 [facility] Comment on above: IG% - Immature Granu locytes (promyelocytes, myelocytes and metamyelocytes) > 1% indicates that a LEFT SHIFT is Present. MCH (RBC) [Entitic mass] 31.1 pg 27.0-32.0 [facility] Nucleated RBC/100 WBC (Bld) [Ratio] 0 % 0-5 [facility] MCHC Auto (RBC) [Mass/Vol]Or dered By: Teo Veronica on 09-10-2023 MCHC (RBC) [Mass/Vol] 32.8 g/dL 32-36 [facility] No Panel InformationOrdered By: Teo Veronica on 09-10-2023 Estimated GFR (MDRD) Amer 68 mL/min >60 [facility] Comment on above: GFR Calc Estimated GFR (MDRD) Non-Af Amer 56 mL/min >60 [facility] Comment on above: Non- GFR Calc Thyroid Stimulating Hormone (TSH) 2.63 uIU/mL 0.358-3.74 [facility] Vitamin D 25-Hydroxy 38.0 ng/mL [facility] Comment on above: Vitamin D 25(OH) Sta tus Range Deficiency <20 ng/mL (50nmol/L) Insufficiency 20 - 30 ng/mL (50 - 75 nmol/L) Sufficiency 30 - 100 ng/mL (75 - 250 nmol/L) Toxicity >100 ng/mL (>250 nmol/L) Platelets bldOrdered By: Teo Veronica on 09-10-2023 Platelets (Bld) [#/Vol] 194 10*3/uL 150-450 [facility] Serum or plasma albumin aneudy urement (mass/volume)Ordered By: Teo Veronica on 09-10-2023 Albumin [Mass/Vol] 3.6 g/dL 3.2-5.0 [facility] Serum or plasma albumin/glob ulin mass ratioOrdered By: Teo Veronica 09-10-2023 Albumin/Globulin [Mass ratio] 0.9 {ratio} 0.9-2.4 [facility] Serum or plasma calcium aneudy urement (mass/volume)Ordered By: Teo Veronica 09-10-2023 Calcium [Mass/Vol] 8.7 mg/dL 8.5-10.1 [facility] Serum or plasma cholesterol in HDL measurement (mass/volume)Ordered By: Teo Veronica on 09-10-2023 Cholesterol in HDL [Mass/Vol] 49 mg/dL >40 [facility] Comment on above: The drugs N-Acetylcy steine and Metamizole may falsely depress this assay. Reference Range HDL <40 mg/dL Low HDL Cholesterol HDL >or= 60 mg/dL High HDL Cholesterol Serum or plasma cholesterol in VLDL measurement (mass/volume)Ordered By: Teo Veronica on 09-10-2023 Cholesterol in VLDL [Mass/Vol] 24 mg/dL 5-40 [facility] Serum or plasma creatinine m easurement (mass/volume)Ordered By: Teo Veronica 09-10-2023 Creatinine [Mass/Vol] 1.32 mg/dL 0.70-1.30 [facility] Comment on above: The validity of the calculated GFR & GFRAA in patients over 70 years has not been determined. Clinical correlation is essential. Serum or plasma low density lipoprotein (LDL) cholesterol measurement (mass/volume)Ordered By: Teo Veronica on 09-10-2023 Cholesterol in LDL [Mass/Vol] 54 mg/dL 0-130 [facility] Serum or plasma urea nitroge n measurement (mass/volume)Ordered By: Teo Veronica on 09-10-2023 Urea nitrogen [Mass/Vol] 12 mg/dL 7-18 [facility] Thin prep Papanicolaou smear with manual screeningOrdered By: Teo Veronica on 09-10-2023 Thin prep Papanicolaou smear with manual screening 21 U/L 15-37 [facility] Thin prep Papanicolaou smear with manual screening 6 5-15 [facility] Absolute lymphocyte countOrd ered By: Costa Ashby on 03-13-2023 Lymphocytes Auto (Unsp spec) [#/Vol] 1.90 10*3/uL 0.83-4.51 [facility] Basophil percentageOrdered B y: Costa Ashby on 03-13-2023 Basophils/100 WBC (Bld) 0.4 % 0-1 [facility] Bilirubin [Mass/Vol] 0.40 mg/dL 0.20-1.00 [facility] Comment on above: For patients on eltr ombopag therapy, use of Dim[place] TBIL is not recommended. Chloride [Moles/Vol] 105 mmol/L 98-107 [facility] Cholesterol [Mass/Vol] 113 mg/dL <200 [facility] Comment on above: <200 mg/dL Desirable 200-240 mg/dL Borderline >240 mg/dL High Risk Eosinophils/100 WBC (Bld) 4.8 % 0-5 [facility] Glucose [Mass/Vol] 119 mg/dL 74-106 [facility] Comment on above: Fasting Glucose resu lt from 100 to 125 mg/dL suggests IMPAIRED HOMEOSTASIS per A.D.A. criteria. Neutrophils (Bld) [#/Vol] 3.8 10*3/uL 2.0-7.7 [facility] Neutrophils/100 WBC (Bld) 57.0 % 47-70 [facility] Potassium [Moles/Vol] 3.9 mmol/L 3.5-5.1 [facility] Protein [Mass/Vol] 6.8 g/dL 6.4-8.2 [facility] Sodium [Moles/Vol] 142 mmol/L 136-145 [facility] Triglyceride [Mass/Vol] 120 mg/dL <199 [facility] Comment on above: The drugs N-Acetylcy steine and Metamizole may falsely depress this assay.Serum Triglycerides Reference Interval Normal <150 mg/dL Borderline high 150 - 199 mg/dL High 200 - 499 mg/dL Very High > or = 500 mg/dL WBC (Bld) [#/Vol] 6.7 10*3/uL 4.4-11.0 [facility] Blood erythrocytes count (nu mber/volume)Ordered By: Costa Ashby on 03-13-2023 RBC (Bld) [#/Vol] 4.16 10*6/uL 4.6-6.2 [facility] Blood hemoglobin measurement (mass/volume)Ordered By: Costa Ashby on 03-13-2023 Hemoglobin (Bld) [Mass/Vol] 13.0 g/dL 13.0-16.5 [facility] Blood lymphocytes/100 leukoc ytesOrdered By: Costa Isma on 03-13-2023 Lymphocytes/100 WBC (Bld) 28.3 % 19-41 [facility] Blood monocytes/100 leukocyt esOrdered By: [place] Isma on 03-13-2023 Monocytes/100 WBC (Bld) 9.2 % 0-10 [facility] Blood platelet mean volumeOr dered By: Costa Isma on 03-13-2023 Platelet mean volume (Bld) [Entitic vol] 9.9 fL 6.2-12.0 [facility] Determination of erythrocyte mean corpuscular volume (MCV)Ordered By: Costa Ashby on 03-13-2023 MCV (RBC) [Entitic vol] 93.8 fL 80-94 [facility] Direct bilirubinOrdered By: Costa Ashby on 03-13-2023 Bilirubin.direct [Mass/Vol] 0.13 mg/dL 0.00-0.30 [facility] Hematocrit Auto (Bld) [Volum e fraction]Ordered By: Costa Ashby on 03-13-2023 Hematocrit (Bld) [Volume fraction] 39.0 % 40-54 [facility] - Chemistry and C hemistry - challengeOrdered By: [facility] on 03-13-2023 ALP [Catalytic activity/Vol] 82 U/L 45-117 [facility] ALT [Catalytic activity/Vol] 34 U/L 16-61 [facility] CO2 [Moles/Vol] 29.0 mmol/L 21.0-32.0 [facility] Globulin (S) [Mass/Vol] 3.1 g/dL 2.2-4.2 [facility] Urea nitrogen/Creatinine [Mass ratio] 16.7 mg/mg 10-20 [facility] - Hematology and Cell countsOrdered By: [facility] on 03-13-2023 Erythrocyte distribution width (RBC) [Entitic vol] 44.4 fL 35.1-43.9 [facility] Erythrocyte distribution width (RBC) [Ratio] 13.1 % 11.6-14.6 [facility] Immature granulocytes/100 WBC (Bld) 0.300 % 0.0-0.9 [facility] Comment on above: IG% - Immature Granu locytes (promyelocytes, myelocytes and metamyelocytes) > 1% indicates that a LEFT SHIFT is Present. MCH (RBC) [Entitic mass] 31.3 pg 27.0-32.0 [facility] Nucleated RBC/100 WBC (Bld) [Ratio] 0 % 0-5 [facility] MCHC Auto (RBC) [Mass/Vol]Or dered By: Costa Isma on 03-13-2023 MCHC (RBC) [Mass/Vol] 33.3 g/dL 32-36 [facility] No Panel InformationOrdered By: Costa Ashby on 03-13-2023 Estimated GFR (MDRD) Amer 80 mL/min >60 [facility] Comment on above: GFR Calc Estimated GFR (MDRD) Non-Af Amer 66 mL/min >60 [facility] Comment on above: Non- GFR Calc Thyroid Stimulating Hormone (TSH) 2.57 uIU/mL 0.358-3.74 [facility] Vitamin D 25-Hydroxy 42.0 ng/mL [facility] Comment on above: Vitamin D 25(OH) Sta tus Range Deficiency <20 ng/mL (50nmol/L) Insufficiency 20 - 30 ng/mL (50 - 75 nmol/L) Sufficiency 30 - 100 ng/mL (75 - 250 nmol/L) Toxicity >100 ng/mL (>250 nmol/L) Platelets bldOrdered By: Yamil Ashby on 03-13-2023 Platelets (Bld) [#/Vol] 214 10*3/uL 150-450 [facility] Serum or plasma albumin aneduy urement (mass/volume)Ordered By: Costa Ashby on 03-13-2023 Albumin [Mass/Vol] 3.7 g/dL 3.2-5.0 [facility] Serum or plasma albumin/glob ulin mass ratioOrdered By: Costa Ashby on 03-13-2023 Albumin/Globulin [Mass ratio] 1.2 {ratio} 0.9-2.4 [facility] Serum or plasma calcium aneudy urement (mass/volume)Ordered By: Costa Ashby on 03-13-2023 Calcium [Mass/Vol] 8.8 mg/dL 8.5-10.1 [facility] Serum or plasma cholesterol in HDL measurement (mass/volume)Ordered By: Costa Ashby on 03-13-2023 Cholesterol in HDL [Mass/Vol] 44 mg/dL >40 [facility] Comment on above: The drugs N-Acetylcy steine and Metamizole may falsely depress this assay. Reference Range HDL <40 mg/dL Low HDL Cholesterol HDL >or= 60 mg/dL High HDL Cholesterol Serum or plasma cholesterol in VLDL measurement (mass/volume)Ordered By: oCsta Ashby on 03-13-2023 Cholesterol in VLDL [Mass/Vol] 24 mg/dL 5-40 [facility] Serum or plasma creatinine m easurement (mass/volume)Ordered By: Costa Ashby on 03-13-2023 Creatinine [Mass/Vol] 1.14 mg/dL 0.70-1.30 [facility] Comment on above: The validity of the calculated GFR & GFRAA in patients over 70 years has not been determined. Clinical correlation is essential. Serum or plasma low density lipoprotein (LDL) cholesterol measurement (mass/volume)Ordered By: Costa [facility] on 03-13-2023 Cholesterol in LDL [Mass/Vol] 45 mg/dL 0-130 [facility] Serum or plasma urea nitroge n measurement (mass/volume)Ordered By: Costa [facility] on 03-13-2023 Urea nitrogen [Mass/Vol] 19 mg/dL 7-18 [facility] Thin prep Papanicolaou smear with manual screeningOrdered By: [facility] on 03-13-2023 Thin prep Papanicolaou smear with manual screening 19 U/L 15-37 [facility] Thin prep Papanicolaou smear with manual screening 8 5-15 [facility] Absolute lymphocyte countOrd ered By: Dr. Veronica on 09-05-2022 Lymphocytes Auto (Unsp spec) [#/Vol] 1.83 10*3/uL 0.83-4.51 [facility] Basophil percentageOrdered B y: Dr. Veronica on 09-05-2022 Basophils/100 WBC (Bld) 0.5 % 0-1 [facility] Bilirubin [Mass/Vol] 0.50 mg/dL 0.20-1.00 [facility] Comment on above: For patients on eltr ombopag therapy, use of Dim[place] TBIL is not recommended. Chloride [Moles/Vol] 105 mmol/L 98-107 [facility] Eosinophils/100 WBC (Bld) 5.3 % 0-5 [facility] Glucose [Mass/Vol] 144 mg/dL 74-106 [facility] Comment on above: Fasting Glucose resu lt greater than or equal to 126 mg/dL suggests DIABETES MELLITUS per A.D.A. criteria. Neutrophils (Bld) [#/Vol] 3.3 10*3/uL 2.0-7.7 [facility] Neutrophils/100 WBC (Bld) 55.5 % 47-70 [facility] Potassium [Moles/Vol] 3.6 mmol/L 3.5-5.1 [facility] Protein [Mass/Vol] 7.0 g/dL 6.4-8.2 [facility] Sodium [Moles/Vol] 142 mmol/L 136-145 [facility] WBC (Bld) [#/Vol] 6.0 10*3/uL 4.4-11.0 [facility] Blood erythrocytes count (nu mber/volume)Ordered By: Dr. Veronica on 09-05-2022 RBC (Bld) [#/Vol] 4.49 10*6/uL 4.6-6.2 [facility] Blood hemoglobin measurement (mass/volume)Ordered By: Dr. Veronica on 09-05-2022 Hemoglobin (Bld) [Mass/Vol] 14.2 g/dL 13.0-16.5 [facility] Blood lymphocytes/100 leukoc ytesOrdered By: Dr. Veronica on 09-05-2022 Lymphocytes/100 WBC (Bld) 30.4 % 19-41 [facility] Blood monocytes/100 leukocyt esOrdered By: Dr. Veronica on 09-05-2022 Monocytes/100 WBC (Bld) 8.1 % 0-10 [facility] Blood platelet mean volumeOr dered By: Dr. Veronica on 09-05-2022 Platelet mean volume (Bld) [Entitic vol] 9.9 fL 6.2-12.0 [facility] Determination of erythrocyte mean corpuscular volume (MCV)Ordered By: Dr. Veronica on 09-05-2022 MCV (RBC) [Entitic vol] 96.0 fL 80-94 [facility] Hematocrit Auto (Bld) [Volum e fraction]Ordered By: Dr. Veronica on 09-05-2022 Hematocrit (Bld) [Volume fraction] 43.1 % 40-54 [facility] Laboratory - Chemistry and C hemistry - challengeOrdered By: Dr. Veronica on 09-05-2022 ALP [Catalytic activity/Vol] 78 U/L 45-117 [facility] ALT [Catalytic activity/Vol] 34 U/L 16-61 [facility] CO2 [Moles/Vol] 27.0 mmol/L 21.0-32.0 [facility] Globulin (S) [Mass/Vol] 3.5 g/dL 2.2-4.2 [facility] Urea nitrogen/Creatinine [Mass ratio] 12.0 mg/mg 10-20 [facility] - Hematology and Cell countsOrdered By: Dr. Veronica on 09-05-2022 Erythrocyte distribution width (RBC) [Entitic vol] 44.3 fL 35.1-43.9 [facility] Erythrocyte distribution width (RBC) [Ratio] 12.6 % 11.6-14.6 [facility] Immature granulocytes/100 WBC (Bld) 0.200 % 0.0-0.9 [facility] Comment on above: IG% - Immature Granu locytes (promyelocytes, myelocytes and metamyelocytes) > 1% indicates that a LEFT SHIFT is Present. MCH (RBC) [Entitic mass] 31.6 pg 27.0-32.0 [facility] Nucleated RBC/100 WBC (Bld) [Ratio] 0 % 0-5 [facility] MCHC Auto (RBC) [Mass/Vol]Or dered By: Dr. Veronica on 09-05-2022 MCHC (RBC) [Mass/Vol] 32.9 g/dL 32-36 [facility] No Panel InformationOrdered By: Dr. Veronica on 09-05-2022 Estimated GFR (MDRD) Amer 85 mL/min >60 [facility] Comment on above: GFR Calc Estimated GFR (MDRD) Non-Af Amer 71 mL/min >60 [facility] Comment on above: Non- GFR Calc Thyroid Stimulating Hormone (TSH) 2.56 uIU/mL 0.358-3.74 [facility] Vitamin D 25-Hydroxy 35.3 ng/mL [facility] Comment on above: Vitamin D 25(OH) Sta tus Range Deficiency <20 ng/mL (50nmol/L) Insufficiency 20 - 30 ng/mL (50 - 75 nmol/L) Sufficiency 30 - 100 ng/mL (75 - 250 nmol/L) Toxicity >100 ng/mL (>250 nmol/L) Platelets bldOrdered By: Dr. Veronica on 09-05-2022 Platelets (Bld) [#/Vol] 169 10*3/uL 150-450 [facility] Serum or plasma albumin aneudy urement (mass/volume)Ordered By: Dr. Veronica on 09-05-2022 Albumin [Mass/Vol] 3.5 g/dL 3.2-5.0 [facility] Serum or plasma albumin/glob ulin mass ratioOrdered By: Dr. Veronica on 09-05-2022 Albumin/Globulin [Mass ratio] 1.0 {ratio} 0.9-2.4 [facility] Serum or plasma calcium aneudy urement (mass/volume)Ordered By: Dr. Veronica on 09-05-2022 Calcium [Mass/Vol] 8.8 mg/dL 8.5-10.1 [facility] Serum or plasma creatinine m easurement (mass/volume)Ordered By: Dr. Veronica on 09-05-2022 Creatinine [Mass/Vol] 1.08 mg/dL 0.70-1.30 [facility] Comment on above: The validity of the calculated GFR & GFRAA in patients over 70 years has not been determined. Clinical correlation is essential. Serum or plasma urea nitroge n measurement (mass/volume)Ordered By: Dr. Veronica on 09-05-2022 Urea nitrogen [Mass/Vol] 13 mg/dL 7-18 [facility] Thin prep Papanicolaou smear with manual screeningOrdered By: Dr. Veronica on 09-05-2022 Thin prep Papanicolaou smear with manual screening 18 U/L 15-37 [facility] Thin prep Papanicolaou smear with manual screening 10 5-15 [facility] - Microbiology an d Antimicrobial susceptibilityOrdered By: Dr. Veronica on 08-20-2022 SARS-CoV-2 (COVID-19) RNA VALDO+probe Ql (Unsp spec) Not detected Not Detect [facility] Comment on above: Normal Reference Ran [...] 08-20-2022 Influenza Types A,B Direct FA (DEVON) [facility] RSV Ag EIAOrdered By: Dr. Zan ma on 08-20-2022 RSV Ag Immune stain Ql (Tiss) [facility] Basophil percentageon 2021 Bilirubin [Mass/Vol] 0.40 mg/dL 0.20-1.00 [facility] Work Phone: Comment on above: For patients on eltr ombopag therapy, use of Dimension [place] TBIL is not recommended. Chloride [Moles/Vol] 106 mmol/L 98-107 [facility] Work Phone: [phone] Cholesterol [Mass/Vol] 128 mg/dL <200 [facility] Work Phone: Comment on above: <200 mg/dL Desirable 200-240 mg/dL Borderline >240 mg/dL High Risk Glucose [Mass/Vol] 145 mg/dL 74-106 [facility] Work Phone: Comment on above: Fasting Glucose resu lt greater than or equal to 126 mg/dL suggests DIABETES MELLITUS per A.D.A. criteria. Potassium [Moles/Vol] 3.8 mmol/L 3.5-5.1 [facility] Work Phone: [phone] Protein [Mass/Vol] 7.3 g/dL 6.4-8.2 [facility] Work Phone: [phone] Sodium [Moles/Vol] 141 mmol/L 136-145 [facility] Work Phone: [phone] Triglyceride [Mass/Vol] 119 mg/dL <199 [facility] Work Phone: [phone] Comment on above: The drugs N-Acetylcy steine and Metamizole may falsely depress this assay.Serum Triglycerides Reference Interval Normal <150 mg/dL Borderline high 150 - 199 mg/dL High 200 - 499 mg/dL Very High > or = 500 mg/dL Direct bilirubinon Bilirubin.direct [Mass/Vol] 0.11 mg/dL 0.00-0.30 [facility] Work Phone: Laboratory - Chemistry and C hemistry - challengeon 06-04-2022 ALP [Catalytic activity/Vol] 84 U/L 45-117 [facility] Work Phone: [phone] ALT [Catalytic activity/Vol] 28 U/L 16-61 [facility] Work Phone: [phone] CO2 [Moles/Vol] 29.0 mmol/L 21.0-32.0 [facility] Work Phone: [phone] Globulin (S) [Mass/Vol] 3.6 g/dL 2.2-4.2 [facility] Work Phone: [phone] Urea nitrogen/Creatinine [Mass ratio] 9.7 mg/mg 10-20 [facility] Work Phone: No Panel Informationon 06-04 Estimated GFR (MDRD) Amer 90 mL/min >60 [facility] Work Phone: Comment on above: GFR Calc Estimated GFR (MDRD) Non-Af Amer 75 mL/min >60 [facility] Work Phone: Comment on above: Non- GFR Calc Serum or plasma albumin aneudy urement (mass/volume)on 06-04-2022 Albumin [Mass/Vol] 3.7 g/dL 3.2-5.0 [facility] Work Phone: [phone] Serum or plasma calcium aneudy urement (mass/volume)on 06-04-2022 Calcium [Mass/Vol] 8.7 mg/dL 8.5-10.1 [facility] Work Phone: [phone] Serum or plasma cholesterol in HDL measurement (mass/volume)on 06-04-2022 Cholesterol in HDL [Mass/Vol] 43 mg/dL >40 [facility] Work Phone: Comment on above: The drugs N-Acetylcy steine and Metamizole may falsely depress this assay. Reference Range HDL <40 mg/dL Low HDL Cholesterol HDL >or= 60 mg/dL High HDL Cholesterol Serum or plasma cholesterol in VLDL measurement (mass/volume)on 06-04-2022 Cholesterol in VLDL [Mass/Vol] 24 mg/dL 5-40 [facility] Work Phone: Serum or plasma creatinine m easurement (mass/volume)on 06-04-2022 Creatinine [Mass/Vol] 1.03 mg/dL 0.70-1.30 [facility] Work Phone: Comment on above: The validity of the calculated GFR & GFRAA in patients over 70 years has not been determined. Clinical correlation is essential. Serum or plasma low density lipoprotein (LDL) cholesterol measurement (mass/volume)on 06-04-2022 Cholesterol in LDL [Mass/Vol] 61 mg/dL 0-130 [facility] Work Phone: Serum or plasma urea nitroge n measurement (mass/volume)on 06-04-2022 Urea nitrogen [Mass/Vol] 10 mg/dL 7-18 [facility] Work Phone: Thin prep Papanicolaou smear with manual screeningon 06-04-2022 Thin prep Papanicolaou smear with manual screening 16 U/L 15-37 [facility] Work Phone: Thin prep Papanicolaou smear with manual screening 6 5-15 [facility] Work Phone: Basophil percentageon 2021 Chloride [Moles/Vol] 107 mmol/L 98-107 [facility] Work Phone: Glucose [Mass/Vol] 160 mg/dL 74-106 [facility] Work Phone: Comment on above: Fasting Glucose resu lt greater than or equal to 126 mg/dL suggests DIABETES MELLITUS per A.D.A. criteria. Potassium [Moles/Vol] 3.7 mmol/L 3.5-5.1 [facility] Work Phone: Sodium [Moles/Vol] 140 mmol/L 136-145 [facility] Work Phone: Laboratory - Chemistry and C hemistry - challengeon 03-21-2022 CO2 [Moles/Vol] 26.0 mmol/L 21.0-32.0 [facility] Work Phone: [phone] Urea nitrogen/Creatinine [Mass ratio] 10.7 mg/mg 10-20 [facility] Work Phone: No Panel Informationon 03-21 Estimated GFR (MDRD) Amer 74 mL/min >60 [facility] Work Phone: Comment on above: GFR Calc Estimated GFR (MDRD) Non-Af Amer 61 mL/min >60 [facility] Work Phone: Comment on above: Non- GFR Calc Serum or plasma calcium aneudy urement (mass/volume)on 03-21-2022 Calcium [Mass/Vol] 8.6 mg/dL 8.5-10.1 [facility] Work Phone: Serum or plasma creatinine m easurement (mass/volume)on 03-21-2022 Creatinine [Mass/Vol] 1.22 mg/dL 0.70-1.30 [facility] Work Phone: Comment on above: The validity of the calculated GFR & GFRAA in patients over 70 years has not been determined. Clinical correlation is essential. Serum or plasma urea nitroge n measurement (mass/volume)on 03-21-2022 Urea nitrogen [Mass/Vol] 13 mg/dL 7-18 [facility] Work Phone: [phone] Thin prep Papanicolaou smear with manual screeningon 03-21-2022 Thin prep Papanicolaou smear with manual screening 7 5-15 [facility] Work Phone: [phone] Absolute lymphocyte counton 03-13-2022 Lymphocytes Auto (Unsp spec) [#/Vol] 1.53 10*3/uL 0.83-4.51 [facility] Work Phone: Basophil percentageon 2021 Basophils/100 WBC (Bld) 0.3 % 0-1 [facility] Work [phone] Bilirubin [Mass/Vol] 0.40 mg/dL 0.20-1.00 [facility] Work Phone: Comment on above: For patients on eltr ombopag therapy, use of Dimension [place] TBIL is not recommended. Chloride [Moles/Vol] 106 mmol/L 98-107 [facility] Work Phone: Eosinophils/100 WBC (Bld) 3.8 % 0-5 [facility] Work Phone: Glucose [Mass/Vol] 186 mg/dL 74-106 [facility] Work Phone: Comment on above: Fasting Glucose resu lt greater than or equal to 126 mg/dL suggests DIABETES MELLITUS per A.D.A. criteria. Neutrophils (Bld) [#/Vol] 4.0 10*3/uL 2.0-7.7 [facility] Work Phone: Neutrophils/100 WBC (Bld) 64.1 % 47-70 [facility] Work Phone: Potassium [Moles/Vol] 3.4 mmol/L 3.5-5.1 [facility] Work Phone: Protein [Mass/Vol] 7.0 g/dL 6.4-8.2 [facility] Work Phone: Sodium [Moles/Vol] 140 mmol/L 136-145 [facility] Work Phone: WBC (Bld) [#/Vol] 6.3 10*3/uL 4.4-11.0 [facility] Work Phone: Blood erythrocytes count (nu mber/volume)on 03-13-2022 RBC (Bld) [#/Vol] 4.30 10*6/uL 4.6-6.2 [facility] Work Phone: Blood hemoglobin measurement (mass/volume)on 03-13-2022 Hemoglobin (Bld) [Mass/Vol] 13.7 g/dL 13.0-16.5 [facility] Work Phone: Blood lymphocytes/100 leukoc yteson 03-13-2022 Lymphocytes/100 WBC (Bld) 24.5 % 19-41 [facility] Work Phone: Blood monocytes/100 leukocyt eson 03-13-2022 Monocytes/100 WBC (Bld) 7.0 % 0-10 [facility] Work Phone: Blood platelet mean volumeon 03-13-2022 Platelet mean volume (Bld) [Entitic vol] 9.9 fL 6.2-12.0 [facility] Work Phone: Determination of erythrocyte mean corpuscular volume (MCV)on 03-13-2022 MCV (RBC) [Entitic vol] 94.9 fL 80-94 [facility] Work Phone: Hematocrit Auto (Bld) [Volum e fraction]on 03-13-2022 Hematocrit (Bld) [Volume fraction] 40.8 % 40-54 [facility] Work Phone: Laboratory - Chemistry and C hemistry - challengeon 03-13-2022 ALP [Catalytic activity/Vol] 73 U/L 45-117 [facility] Work Phone: ALT [Catalytic activity/Vol] 36 U/L 16-61 [facility] Work Phone: CO2 [Moles/Vol] 27.0 mmol/L 21.0-32.0 [facility] Work Phone: Globulin (S) [Mass/Vol] 3.4 g/dL 2.2-4.2 [facility] Work Phone: Urea nitrogen/Creatinine [Mass ratio] 10.7 mg/mg 10-20 [facility] Work Phone: Laboratory - Hematology and Cell countson 03-13-2022 Erythrocyte distribution width (RBC) [Entitic vol] 43.6 fL 35.1-43.9 [facility] Work Phone: Erythrocyte distribution width (RBC) [Ratio] 12.6 % 11.6-14.6 [facility] Work Phone: Immature granulocytes/100 WBC (Bld) 0.300 % 0.0-0.9 [facility] Work Phone: Comment on above: IG% - Immature Granu locytes (promyelocytes, myelocytes and metamyelocytes) > 1% indicates that a LEFT SHIFT is Present. MCH (RBC) [Entitic mass] 31.9 pg 27.0-32.0 [facility] Work Phone: Nucleated RBC/100 WBC (Bld) [Ratio] 0 % 0-5 [facility] Work Phone: [phone] MCHC Auto (RBC) [Mass/Vol]on 03-13-2022 MCHC (RBC) [Mass/Vol] 33.6 g/dL 32-36 [facility] Work Phone: No Panel Informationon 03-13 Estimated GFR (MDRD) Amer 82 mL/min >60 [facility] Work Phone: Comment on above: GFR Calc Estimated GFR (MDRD) Non-Af Amer 68 mL/min >60 [facility] Work Phone: [phone] Comment on above: Non- GFR Calc Thyroid Stimulating Hormone (TSH) 3.34 uIU/mL 0.358-3.74 [facility] Work Phone: [phone] Vitamin D 25-Hydroxy 36.4 ng/mL [facility] Work Phone: [phone] Comment on above: Vitamin D 25(OH) Sta tus Range Deficiency <20 ng/mL (50nmol/L) Insufficiency 20 - 30 ng/mL (50 - 75 nmol/L) Sufficiency 30 - 100 ng/mL (75 - 250 nmol/L) Toxicity >100 ng/mL (>250 nmol/L) Platelets bldon 03-13-2022 Platelets (Bld) [#/Vol] 190 10*3/uL 150-450 [facility] Work Phone: [phone] Serum or plasma albumin aneudy urement (mass/volume)on 03-13-2022 Albumin [Mass/Vol] 3.6 g/dL 3.2-5.0 [facility] Work Phone: Serum or plasma albumin/glob ulin mass ratioon 03-13-2022 Albumin/Globulin [Mass ratio] 1.1 {ratio} 0.9-2.4 [facility] Work Phone: Serum or plasma calcium aneudy urement (mass/volume)on 03-13-2022 Calcium [Mass/Vol] 8.5 mg/dL 8.5-10.1 [facility] Work Phone: [phone] Serum or plasma creatinine m easurement (mass/volume)on 03-13-2022 Creatinine [Mass/Vol] 1.12 mg/dL 0.70-1.30 [facility] Work Phone: Comment on above: The validity of the calculated GFR & GFRAA in patients over 70 years has not been determined. Clinical correlation is essential. Serum or plasma urea nitroge n measurement (mass/volume)on 03-13-2022 Urea nitrogen [Mass/Vol] 12 mg/dL 7-18 [facility] Work Phone: Thin prep Papanicolaou smear with manual screeningon 03-13-2022 Thin prep Papanicolaou smear with manual screening 14 U/L 15-37 [facility] Work Phone: [phone] Thin prep Papanicolaou smear with manual screening 7 5-15 [facility] Work Phone: [phone] Whole blood hemoglobin A1c/t otal hemoglobin ratio (mass fraction)on 03-13-2022 HbA1c (Bld) [Mass fraction] 5.8 % 3.8-5.6 [facility] Work Phone: Comment on above: Normal < 5.7 % Predi abetic 5.7 - 6.4 % Diabetic >or= 6.5 % Please note range changes. CNNURSEon 01-11-2021 CNNURSE Nurse Visit (COVAMD) ---- ERROL RIVERA ([id number]) 1945 M [employer] Date Time Provider Department 01/11/21 MANFRED DOBBINS) DENISSE During your visit today, we recorded the following information about you: Allergies As of Date: 01/11/2021 Noted Allergy Reaction SEASONAL ALLERGIES 12/26/2011 16 - Unknown Date Reviewed: 09/25/2016 Reviewed by: Angel Oliveros LPN - Fully Assessed Order(s):[employer] SARS-COV-2 VACCINE 2D DOSE APPT [[id number]] Order #: [id number] Prescriptions as of 01/11/2021 Sig: ATORVASTATIN 80 [...] E* Take 1 capsule by mouth. * [id number]-[id number]-[id number] G-HYALUR A* Take by mouth. * MULTIVITAMIN-MINERA [...] 02/18/2013 Umbilical pain [R10.33] 09/25/2016 Encounter Status:Open [facility] Office Visit: [facility] 05-28-20 17 Documentation of current medications (procedure) Done Invalid Interpretation Code [employer] Work Phone: [phone] Fall risk assessment No Invalid Interpretation Code [facility] Work Phone: [phone] Protein mass conc Done [facility] Work Phone: [phone] Lab Report: Basic Metabolic Profile (BMP)on 11-29-2016 Anion gap 9 mmol/L Invalid Interpretation Code 5-15 [facility] Work Phone: [phone] Anion gap molar conc 9 mmol/L 5-15 [facility] [employer] [facility] Work Phone: [phone] BUN/Creatinine Ratio 17.5 RATIO Invalid Interpretation Code 10-20 [employer] Work Phone: [phone] Calcium 8.5 mg/dL Invalid Interpretation Code 8.5-10.1 [facility] Work Phone: [phone] Chloride 102 mmol/L Invalid Interpretation Code 98-107 [facility] Work Phone: [phone] CO2 28.0 mmol/L Invalid Interpretation Code 21.0-32.0 [facility] Phone: [phone] CO2 ppres (BldV) 28.0 mmol/L 21.0-32.0 [facility] Work Phone: [phone] Creatinine 1.03 mg/dL Invalid Interpretation Code 0.70-1.30 [facility] Phone: [phone] eGFR (non-black) 92 mL/min/{1.73_m2} Invalid Interpretation Code >60 [facility] Work Phone: [phone] eGFR (non-black) 76 mL/min/{1.73_m2} Invalid Interpretation Code >60 [facility] Work Phone: [phone] EST GFR - AA 92 mL/min >60 [facility] Work Phone: [phone] Glucose 100 mg/dL Invalid Interpretation Code 70-110 [facility] Work Phone: [phone] Glucose mass conc 100 mg/dL 70-110 [facility] Work Phone: [phone] Potassium 4.0 mmol/L Invalid Interpretation Code 3.5-5.1 [employer] Work Phone: [phone] Sodium 139 mmol/L Invalid Interpretation Code 136-145 [facility] Work Phone: [phone] Urea nitrogen 18 mg/dL Invalid Interpretation Code 7-18 [facility] Work Phone: [phone] Lab Report: Lipid Profileon 11-29-2016 Cholesterol 127 mg/dL Invalid Interpretation Code 200 [employer] Work Phone: [phone] HDL Cholesterol 41 mg/dL Invalid Interpretation Code [facility] Phone: [phone] LDL Cholesterol 59 mg/dL Invalid Interpretation Code 0-130 [facility] Work Phone: [phone] Triglyceride 136 mg/dL Invalid Interpretation Code [employer] Work Phone: [phone] very low density lipoproteins 27 mg/dL Invalid Interpretation Code 5-40 [facility] Work Phone: [phone] Lab Report: Liver Profileon 11-29-2016 Alanine aminotransferase (ALT) 31 U/L Invalid Interpretation Code 12-78 [facility] Phone: [phone] Albumin 3.8 g/dL Invalid Interpretation Code 3.4-5.0 [facility] Work Phone: [phone] Alkaline phosphatase (ALP) 66 U/L Invalid Interpretation Code 45-117 [facility] Work Phone: [phone] ALP enzyme act/vol (Bld) 66 U/L 45-117 [facility] Work Phone: [phone] Aspartate aminotransferase (AST) 15 U/L Invalid Interpretation Code 15-37 [facility] Work Phone: [phone] Bilirubin (direct) 0.11 mg/dL Invalid Interpretation Code 0.00-0.30 [facility] Work Phone: [phone] Bilirubin (total) 0.50 mg/dL Invalid Interpretation Code 0.20-1.00 [facility] Phone: [phone] Globulin 3.3 g/dL Invalid Interpretation Code 2.3-3.5 [facility] Work Phone: [phone] Globulin mass conc (S) 3.3 g/dL 2.3-3.5 [facility] Work Phone: [phone] Protein 7.1 g/dL Invalid Interpretation Code 6.4-8.2 [facility] Work Phone: [phone] Lab Report: Thyroid Stim Hor stanley (TSH)on 11-29-2016 Thyroid stimulating hormone (TSH) 2.74 u[iU]/mL Invalid Interpretation Code 0.358-3.74 [facility] Work Phone: [phone] Replaced Document: CBC W/Dif f, Automatedon 11-29-2016 Basophils/100 leukocytes 0.4 % Invalid Interpretation Code 0-1 [facility] Work Phone: [phone] Basophils/100 WBC (Bld) 0.4 % 0-1 [facility] Work Phone: [phone] Eosinophils/100 leukocytes 5.1 % High 0-5 [facility] Work Phone: [phone] Eosinophils/100 WBC (Bld) 5.1 % High 0-5 [facility] Work Phone: [phone] Erythrocyte distribution width Ratio (RBC) 40.1 fL 35.1-43.9 [facility] Work Phone: [phone] Erythrocyte distribution width Ratio (RBC) 12.0 % 11.6-14.6 [facility] Work Phone: [phone] Erythrocytes (RBC) 4.59 10*6/uL Low 4.6-6.[address] [facility] Work Phone: [phone] Hematocrit (HCT) 42.7 % Invalid Interpretation Code 40-54 [facility] Work Phone: [phone] Hematocrit Volume Fraction (Bld) 42.7 % 40-54 [facility] Work Phone: [phone] Hemoglobin (HGB) 14.6 g/dL Invalid Interpretation Code 13.0-16.5 [facility] Work Phone: Immature granulocytes #/vol (Bld) 0.300 % 0.0-0.9 [facility] Work [phone] immature granulocytes, percentage of total cells, blood 0.300 % Invalid Interpretation Code 0.0-0.9 [facility] Work Phone: [phone] Lymphocytes 2.27 X10 3/UL Invalid Interpretation Code 0.83-4.51 [facility] Work [phone] Lymphocytes #/vol (Bld) 2.27 X10 3/UL 0.83-4.51 [facility] Work Phone: [phone] Lymphocytes/100 leukocytes 32.8 % Invalid Interpretation Code 19-41 [facility] Work [phone] Lymphocytes/100 WBC (Bld) 32.8 % 19-41 [facility] Work Phone: [phone] MCH 31.8 pg Invalid Interpretation Code 27.0-32.0 [facility] Work Phone: [phone] MCH Entitic mass (RBC) 31.8 pg 27.0-32.0 [facility] Work Phone: [phone] MCHC 34.2 G/GL Invalid Interpretation Code 32-36 [facility] Work Phone: [phone] MCHC mass conc (RBC) 34.2 G/GL 32-[address] [facility] Work Phone: [phone] MCV 93.0 fL Invalid Interpretation Code 80-94 [facility] Work [phone] MCV Entitic volume (RBC) 93.0 fL 80-94 [facility] Work Phone: [phone] Monocytes/100 leukocytes 7.9 % Invalid Interpretation Code 0-10 [facility] Work Phone: [phone] Monocytes/100 WBC (Bld) 7.9 % 0-10 [facility] Work Phone: [phone] neutrophil count, blood 3.7 X10 3/UL Invalid Interpretation Code 2.0-7.7 [facility] Work Phone: [phone] Neutrophils #/vol (Bld) 3.7 X10 3/UL 2.0-7.7 [facility] Work Phone: [phone] Neutrophils/100 leukocytes 53.5 % Invalid Interpretation Code 47-70 [facility] Work Phone: [phone] Neutrophils/100 WBC (Bld) 53.5 % 47-70 [facility] Work Phone: [phone] Platelet mean volume Entitic volume (Bld) 9.7 fL 6.2-12.0 [facility] Work Phone: [phone] Platelets 214 10*3/mm3 Invalid Interpretation Code 150-450 [facility] Work Phone: [phone] Platelets #/vol (Bld) 214 10*3/mm3 150-450 [facility] [employer] Work Phone: [phone] PMV by Larissa 9.7 fL Invalid Interpretation Code 6.2-12.0 [facility] Phone: [phone] RBC #/vol (Bld) 4.59 10*6/uL Low 4.6-6.2 [facility] Work Phone: [phone] RDW-CA 12.0 % Invalid Interpretation Code 11.6-14.6 [facility] Phone: [phone] red blood cell distribution width, size density 40.1 fL Invalid Interpretation Code 35.1-43.9 [facility] Phone: [phone] WBC #/vol (Bld) 6.9 10*3/uL 4.4-11.0 [facility] Phone: [phone] WBC (Leukocytes) 6.9 10*3/uL Invalid Interpretation Code 4.4-11.0 [facility] Phone: [phone] Office Visiton 11-28-2016 Documentation of current medications (procedure) Done Invalid Interpretation Code [facility] Phone: [phone] Replaced Document: Charles Carrillo CG Observationson 11-28-2016 EKG QRS axis 27 deg [facility] Phone: [phone] electrocardiogram interpretation Sinus Tachycardia WITHIN NORMAL LIMITS Invalid Interpretation Code [facility] Phone: [phone] GE use only - for [employer] import when terms are not otherwise specified 418 ms Invalid Interpretation Code [facility] Phone: [phone] Interpretation Sinus Tachycardia WITHIN NORMAL LIMITS [facility] Work Phone: [phone] P [place] 34 deg [employer] Work Phone: [phone] P wave axis, electrocardiogram 34 deg Invalid Interpretation Code [employer] Work Phone: [phone] WV Interval 164 ms [employer] Work Phone: [phone] WV interval, electrocardiogram 164 ms Invalid Interpretation Code [employer] Work Phone: [phone] Pulse (Heart Rate) 106 /min Invalid Interpretation Code [employer] Work Phone: [phone] QRS axis, electrocardiogram 27 deg Invalid Interpretation Code [facility] Phone: [phone] QRS Duration 110 ms [employer] Work Phone: [phone] QRS duration, electrocardiogram 110 ms Invalid Interpretation Code [facility] Phone: [phone] QT Interval new path ms [employer] Work Phone: [phone] QT interval, electrocardiogram new path ms Invalid Interpretation Code [facility] Phone: [phone] QTc Goldstein 418 ms [facility] Phone: [phone] T [place] -1 deg [employer] Work Phone: [phone] T wave axis, electrocardiogram -1 deg Invalid Interpretation Code [facility] Phone: [phone] Clinical Lists Update: Prelo qm consultant 11-27-2016 Left ventricular Ejection fraction 60 % Invalid Interpretation Code [facility] Phone: [phone] Office Visit: [facility] 05-21-20 16 Dietary management education, guidance, and counseling (procedure) yes Invalid Interpretation Code [facility] Phone: [phone] Office Visiton 11-10-2015 Tobacco smoking status NHIS Former smoker [employer] Work Phone: [phone] Tobacco use CPHS Former smoker Invalid Interpretation Code [facility] Phone: [phone] Office Visit: [facility] 02-15-20 15 cardiac risk group C Invalid Interpretation Code [facility] Phone: General cardiovascular disease 10Y risk [#] [place].D'Agostino N/A Invalid Interpretation Code [facility] [employer] Work Phone: [phone] Tobacco smoking status NHIS Never Invalid Interpretation Code [facility] Work Phone: [phone] Lab Report: CBCDon 4 Absolute Neutrophil count 3.1 X10 3/UL Normal 2.0-7.7 [facility] [employer] Work Phone: [phone] ANC 3.1 X10 3/UL Normal 2.0-7.7 [facility] Work Phone: [phone] Lab Report: CMPon 06-16-2014 Albumin/Globulin Ratio 1.3 {ratio} Normal 0.9-2.4 [facility] Work Phone: [phone] Replaced Document: [facility] E CG Observationson 01-18-2014 Pulse (Heart Rate) 406 ms Invalid Interpretation Code [facility] Work Phone: [phone] Lab Reporton 06-14-2013 Cholesterol to HDL Ratio 4.1 {ratio} Invalid Interpretation Code [facility] [employer] Work Phone: [phone] Lab Reporton 12-13-2011 basophils as percent of blood leukocytes, manual count 0.6 % Invalid Interpretation Code [facility] [employer] Work Phone: [phone] eosinophils as percent of blood leukocytes, manual count 3.6 % Invalid Interpretation Code [facility] [employer] Work Phone: [phone] neutrophils, band form as percent of blood leukocytes, manual count 53.0 % Invalid Interpretation Code [facility] Work Phone: [phone] Vital Signs Date Time Vital Sign Value Performing Clinician Faci [facility] 01-27-2025 10:11-0400 Body height 177.[address] Teo Veronica MD Work Phone: [facility] 01-27-2025 10:06-0400 Body mass index (BMI) [Ratio] 29.8 kg/m2 Dr. Teo Veronica MD Work Phone: [facility] 01-27-2025 10:06-0400 Body weight 94.[address] Teo Veronica MD Work Phone: 9(208)303-249406 [place] [address] 01-27-2025 10:06-0400 Diastolic blood pressure 74 mm[Hg] Dr. Teo Veronica MD Work Phone: 6(532)338-104706 [place] [address] 01-27-2025 10:06-0400 Heart rate 96 /min Dr. Teo Veronica MD Work Phone: 9(935)683-218006 [place] [address] 01-27-2025 10:06-0400 Respiratory rate 18 /min Dr. Teo Veronica MD Work Phone: 9(796)150-271206 [place] [address] 01-27-2025 10:06-0400 SaO2% (BldA) [Mass fraction] 95 % Dr. Teo Veronica MD Work Phone: 9(626)510-763406 [place] [address] 01-27-2025 10:06-0400 Systolic blood pressure 125 mm[Hg] Dr. Teo Veronica MD Work Phone: 8(193)938-262006 [place] [address] 12-02-2023 08:31-0500 Body temperature 97.2 [degF] Dr. Teo Veronica Work Phone: 8(592)998-943306 [place] [address] 12-02-2023 08:31-0500 Body weight 100.[address] Teo Veronica Work Phone: 9(007)539-494106 [place] [address] 12-02-2023 08:31-0500 Diastolic blood pressure 75 mm[Hg] Dr. Teo Veronica Work Phone: 8(230)816-098406 [place] [address] 12-02-2023 08:31-0500 Heart rate 88 /min Dr. Teo Veronica Work Phone: 6(387)848-451506 [place] [address] 12-02-2023 08:31-0500 Respiratory rate 14 /min Dr. Teo Veronica Work Phone: 4(968)098-071906 [place] [address] 12-02-2023 08:31-0500 SaO2% (BldA) [Mass fraction] 98 % Dr. Teo Veronica Work Phone: 5(718)332-424706 [place] [address] 12-02-2023 08:31-0500 Systolic blood pressure 140 mm[Hg] Dr. Teo Veronica Work Phone: 4(626)778-483806 [place] [address] 11-18-2023 08:22-0500 Body height 177.[address] Teo Veronica Work Phone: [facility] 11-18-2023 08:22-0500 Body mass index (BMI) [Ratio] 30.7 kg/m2 Dr. Teo Veronica Work Phone: [facility] 11-18-2023 08:22-0500 Body temperature 97.6 [degF] Dr. Teo Veronica Work Phone: 9(285)695-382249 [place] [address] 11-18-2023 08:22-0500 Body weight 97.[address] Teo Veronica Work Phone: 5(858)107-512106 [place] [address] 11-18-2023 08:22-0500 Diastolic blood pressure 90 mm[Hg] Dr. Teo Veronica Work Phone: 6(910)499-541806 [place] [address] 11-18-2023 08:22-0500 Heart rate 117 /min Dr. Teo Veronica Work Phone: 3(784)977-793606 [place] [address] 11-18-2023 08:22-0500 Respiratory rate 18 /min Dr. Teo Veronica Work Phone: 0(017)411-318206 [place] [address] 11-18-2023 08:22-0500 SaO2% (BldA) [Mass fraction] 95 % Dr. Teo Veronica Work Phone: 0(384)193-266606 [place] [address] 11-18-2023 08:22-0500 Systolic blood pressure 143 mm[Hg] Dr. Teo Veronica Work Phone: 6(224)953-786306 [place] [address] 10-10-2023 10:02-0500 Body temperature 98.9 [degF] Dr. Teo Veronica Work Phone: 8(732)608-579249 [place] [address] 10-10-2023 10:02-0500 Diastolic blood pressure 82 mm[Hg] Dr. Teo Veronica Work Phone: 2(860)734-935149 [place] [address] 10-10-2023 10:02-0500 Heart rate 96 /min Dr. Teo Veronica Work Phone: 0(577)641-508949 [place] [address] 10-10-2023 10:02-0500 Respiratory rate 15 /min Dr. Teo Veronica Work Phone: 4(419)465-488706 [place] [address] 10-10-2023 10:02-0500 SaO2% (BldA) [Mass fraction] 96 % Dr. Teo Veronica Work Phone: 9(035)386-175506 [place] [address] 10-10-2023 10:02-0500 Systolic blood pressure 160 mm[Hg] Dr. Teo Veronica Work Phone: 4(068)543-162806 [place] [address] 08-14-2023 08:25-0400 Body height 177.[address] Teo Veronica Work Phone: 1(368)529-222006 [place] [address] 08-14-2023 08:25-0400 Body mass index (BMI) [Ratio] 31.7 kg/m2 Dr. Teo Veronica Work Phone: 2(304)299-163206 [place] [address] 08-14-2023 08:25-0400 Body temperature 97.8 [degF] Dr. Teo Veronica Work Phone: 8(024)476-507106 [place] [address] 08-14-2023 08:25-0400 Body weight 100.[address] Teo Veronica Work Phone: 1(746)054-406906 [place] [address] 08-14-2023 08:25-0400 Diastolic blood pressure 79 mm[Hg] Dr. Teo Veronica Work Phone: 3(673)343-148306 [place] [address] 08-14-2023 08:25-0400 Heart rate 102 /min Dr. Teo Veronica Work Phone: 3(369)362-194106 [place] [address] 08-14-2023 08:25-0400 Respiratory rate 17 /min Dr. Teo Veronica Work Phone: 9(708)876-259806 [place] [address] 08-14-2023 08:25-0400 SaO2% (BldA) [Mass fraction] 96 % Dr. Teo Veronica Work Phone: 1(559)601-540406 [place] [address] 08-14-2023 08:25-0400 Systolic blood pressure 154 mm[Hg] Dr. Teo Veronica Work Phone: 9(616)559-271806 [place] [address] 06-27-2023 08:17-0400 Body mass index (BMI) [Ratio] 31 kg/m2 Dr. Teo Veronica Work Phone: 9(913)778-084106 [place] [address] 06-27-2023 08:17-0400 Body temperature 97.4 [degF] Dr. Teo Veronica Work Phone: [facility] 06-27-2023 08:17-0400 Body weight 98.[address] Teo Veronica Work Phone: [facility] 06-27-2023 08:17-0400 Diastolic blood pressure 67 mm[Hg] Dr. Teo Veronica Work Phone: 5(314)343-461634 [address] 06-27-2023 08:17-0400 Heart rate 74 /min Dr. Teo Veronica Work Phone: 1(986)523-620734 [address] 06-27-2023 08:17-0400 Respiratory rate 17 /min Dr. Teo Veronica Work Phone: 2(877)484-520049 [place] [address] 06-27-2023 08:17-0400 SaO2% (BldA) [Mass fraction] 95 % Dr. Teo Veronica Work Phone: 4(039)803-033049 [place] [address] 06-27-2023 08:17-0400 Systolic blood pressure 114 mm[Hg] Dr. Teo Veronica Work Phone: 8(380)892-883634 [address] 06-02-2023 08:38-0400 Body mass index (BMI) [Ratio] 31.4 kg/m2 Dr. Teo Veronica Work Phone: 9(035)375-351249 [place] [address] 06-02-2023 08:38-0400 Body temperature 98.7 [degF] Dr. Teo Veronica Work Phone: 6(598)410-441049 [place] [address] 06-02-2023 08:38-0400 Body weight 99.[address] Teo Veronica Work Phone: 5(131)154-893634 [address] 06-02-2023 08:38-0400 Diastolic blood pressure 56 mm[Hg] Dr. Teo Veronica Work Phone: 3(845)712-345549 [place] [address] 06-02-2023 08:38-0400 Heart rate 96 /min Dr. Teo Veronica Work Phone: [facility] 06-02-2023 08:38-0400 Respiratory rate 17 /min Dr. Teo Veronica Work Phone: [facility] 06-02-2023 08:38-0400 SaO2% (BldA) [Mass fraction] 95 % Dr. Teo Veronica Work Phone: [facility] 06-02-2023 08:38-0400 Systolic blood pressure 120 mm[Hg] Dr. Teo Veronica Work Phone: 1(141)584-550349 [place] [address] 01-14-2023 07:50-0400 Body height 177.[address] Teo Veronica Work Phone: 3(006)519-444534 [address] 01-14-2023 07:50-0400 Body mass index (BMI) [Ratio] 31.5 kg/m2 Dr. Teo Veronica Work Phone: 4(085)634-243034 [address] 01-14-2023 07:50-0400 Body temperature 97.2 [degF] Dr. Teo Veronica Work Phone: 6(641)779-629334 [address] 01-14-2023 07:50-0400 Body weight 99.[address] Teo Veronica Work Phone: 2(295)468-874734 [address] 01-14-2023 07:50-0400 Diastolic blood pressure 79 mm[Hg] Dr. Teo Veronica Work Phone: 8(474)022-914934 [address] 01-14-2023 07:50-0400 Heart rate 98 /min Dr. Teo Veronica Work Phone: 1(948)520-412134 [address] 01-14-2023 07:50-0400 Respiratory rate 18 /min Dr. Teo Veronica Work Phone: [facility] 01-14-2023 07:50-0400 SaO2% (BldA) [Mass fraction] 98 % Dr. Teo Veronica Work Phone: 7(944)553-029249 [place] [address] 01-14-2023 07:50-0400 Systolic blood pressure 171 mm[Hg] Dr. Teo Veronica Work Phone: 2(169)836-420249 [place] [address] 12-02-2022 13:40-0500 Body height 177.[address] Teo Veronica Work Phone: 3(709)496-646849 [place] [address] 12-02-2022 13:40-0500 Body mass index (BMI) [Ratio] 31.5 kg/m2 Dr. Teo Veronica Work Phone: 2(473)121-055449 [place] [address] 12-02-2022 13:40-0500 Body temperature 98.7 [degF] Dr. Teo Veronica Work Phone: 0(123)003-655849 [place] [address] 12-02-2022 13:40-0500 Body weight 99.[address] Teo Veronica Work Phone: 5(069)449-513149 [place] [address] 12-02-2022 13:40-0500 Diastolic blood pressure 82 mm[Hg] Dr. Teo Veronica Work Phone: 4(403)677-329649 [place] [address] 12-02-2022 13:40-0500 Heart rate 100 /min Dr. Teo Veronica Work Phone: 9(882)521-436006 [place] [address] 12-02-2022 13:40-0500 Respiratory rate 16 /min Dr. Teo Veronica Work Phone: 6(009)618-851706 [place] [address] 12-02-2022 13:40-0500 SaO2% (BldA) [Mass fraction] 95 % Dr. Teo Veronica Work Phone: 6(388)248-588949 [place] [address] 12-02-2022 13:40-0500 Systolic blood pressure 142 mm[Hg] Dr. Teo Veronica Work Phone: 7(758)101-732834 [address] 11-29-2022 09:08-0500 Body mass index (BMI) [Ratio] 31.4 kg/m2 Dr. Teo Veronica Work Phone: [facility] 11-29-2022 09:08-0500 Body weight 99.[address] Teo Veronica Work Phone: 7(302)935-688049 [place] [address] 11-29-2022 09:08-0500 Diastolic blood pressure 77 mm[Hg] Dr. Teo Veronica Work Phone: 5(908)012-256249 [place] [address] 11-29-2022 09:08-0500 Heart rate 94 /min Dr. Teo Veronica Work Phone: 0(391)066-050949 [place] [address] 11-29-2022 09:08-0500 Respiratory rate 18 /min Dr. Teo Veronica Work Phone: [facility] 11-29-2022 09:08-0500 SaO2% (BldA) [Mass fraction] 96 % Dr. Teo Veronica Work Phone: [facility] 11-29-2022 09:08-0500 Systolic blood pressure 172 mm[Hg] Dr. Teo Veronica Work Phone: [facility] 06-04-2022 09:33-0400 Diastolic blood pressure 84 mm[Hg] Dr. Teo Veronica Work Phone: [facility] Work Phone: 06-04-2022 09:33-0400 Systolic blood pressure 147 mm[Hg] Dr. Teo Veronica Work Phone: [facility] Work Phone: 06-04-2022 08:55-0400 Body height 177.[address] Teo Veronica Work Phone: [facility] Work Phone: 06-04-2022 08:55-0400 Body mass index (BMI) [Ratio] 32.8 kg/m2 Dr. Teo Veronica Work Phone: [facility] Work Phone: 06-04-2022 08:55-0400 Body weight 103.[address] Teo Veronica Work Phone: [facility] Work Phone: 06-04-2022 08:55-0400 Heart rate 98 /min Dr. Teo Veronica Work Phone: [facility] Work Phone: 06-04-2022 08:55-0400 Respiratory rate 16 /min Dr. Teo Veronica Work Phone: [facility] Work Phone: 06-04-2022 08:55-0400 SaO2% (BldA) [Mass fraction] 94 % Dr. Teo Veronica Work Phone: [facility] Work Phone: 03-04-2022 10:21-0400 Body mass index (BMI) [Ratio] 33 kg/m2 Dr. Teo Veronica Work Phone: [facility] Work Phone: 03-04-2022 10:21-0400 Body weight 104.[address] Teo Veronica Work Phone: [facility] Work Phone: 03-04-2022 10:21-0400 Diastolic blood pressure 80 mm[Hg] Dr. Teo Veronica Work Phone: [facility] Work Phone: 03-04-2022 10:21-0400 Heart rate 86 /min Dr. Teo Veronica Work Phone: [facility] Work Phone: 03-04-2022 10:21-0400 Respiratory rate 16 /min Dr. Teo Veronica Work Phone: [facility] Work Phone: 03-04-2022 10:21-0400 SaO2% (BldA) [Mass fraction] 96 % Dr. Teo Veronica Work Phone: [facility] Work Phone: 03-04-2022 10:21-0400 Systolic blood pressure 140 mm[Hg] Dr. Teo Veronica Work Phone: [facility] Work Phone: 03-04-2022 10:21-0400 Body height 177.[address] Teo Veronica Work Phone: [facility] Work Phone: 03-04-2022 10:21-0400 Body mass index (BMI) [Ratio] 33 kg/m2 Dr. Teo Veronica Work Phone: [facility] Work Phone: 03-04-2022 10:21-0400 Body weight 104.[address] Teo Veronica Work Phone: [facility] Work Phone: 03-04-2022 10:21-0400 Diastolic blood pressure 80 mm[Hg] Dr. Teo Veronica Work Phone: [facility] Work Phone: 03-04-2022 10:21-0400 Heart rate 86 /min Dr. Teo Veronica Work Phone: [facility] Work Phone: 03-04-2022 10:21-0400 Respiratory rate 16 /min Dr. Teo Veronica Work Phone: [facility] Work Phone: 03-04-2022 10:21-0400 SaO2% (BldA) [Mass fraction] 96 % Dr. Teo Veronica Work Phone: [facility] Work Phone: 03-04-2022 10:21-0400 Systolic blood pressure 140 mm[Hg] Dr. Teo Veronica Work Phone: [facility] Work Phone: 05-28-2017 14:00-0400 BMI (Body Mass Index) 32.71 kg/m2 [facility] Work Phone: 05-28-2017 14:00-0400 BP Diastolic 70 mm[Hg] [facility] Work Phone: 05-28-2017 14:00-0400 BP Systolic 130 mm[Hg] [facility] Work Phone: 05-28-2017 14:00-0400 Height 177.8 cm [facility] Work Phone: 05-28-2017 14:00-0400 Pulse (Heart Rate) 80 /min [facility] Work Phone: 05-28-2017 14:00-0400 Respiratory Rate 20 /min [facility] Work Phone: 05-28-2017 14:00-0400 Weight 103.42 kg [facility] Work Phone: 11-28-2016 11:44-0500 Heart rate 106 /min [facility] Work Phone: 11-28-2016 11:32-0500 BMI (Body Mass Index) 33.28 kg/m2 [facility] Work Phone: 11-28-2016 11:32-0500 BP Diastolic 60 mm[Hg] Harumi DeFinis [facility] Work Phone: 11-28-2016 11:32-0500 BP Systolic 100 mm[Hg] Harumi DeFinis [facility] Work Phone: 11-28-2016 11:32-0500 BSA (Body Surface Area) 2.23 m2 Harumi DeFinis [facility] Work Phone: 11-28-2016 11:32-0500 Pulse (Heart Rate) 112 /min Perfectoumi DeFinis [facility] Work Phone: 11-28-2016 11:32-0500 Respiratory Rate 20 /min Harumi DeFinis [facility] Work Phone: 11-28-2016 11:32-0500 Weight 105.24 kg Ashlyn DeFinis [facility] Work Phone: 01-18-2014 08:36-0400 Heart rate 406 ms [facility] Work Phone: 03-31-2012 16:44-0400 Height 177.8 cm Ashlyn DeFinis [facility] Work Phone: Encounters Encounter Date Encounter Type Care Provider Facility Start: 06-22-2025 ambulatory [facility] Facility:[facility] Start: 06-21-2025 ambulatory [facility] Facility:[facility] Start: 06-08-2025 End: 06-08-[address] Teo Veronica MD Work Phone: -Cardiovascular Services Start: 06-08-2025 End: 06-08-[address] Teo Veronica MD -Cardiovascular Services Work Phone: Start: 06-08-2025 End: 06-08-2025 ambulatory Teo Veronica Facility:[facility] Start: 2025 End: [address] Teo Veronica MD Work Phone: -Laboratory Start: 2025 End: [address] Teo Veronica MD -Laboratory Work Phone: Start: 2025 End: 2025 ambulatory [facility] Facility:[facility] Start: 06-01-2025 End: 06-01-[address] Teo Veronica MD Work Phone: -Ultrasound [facility] Start: 06-01-2025 End: 06-01-[address] Teo Veronica MD -Ultrasound [facility] Work Phone: Start: 06-01-2025 End: 06-01-2025 ambulatory Teo Veronica Facility:[facility] Start: 05-30-2025 End: 05-30-[address] Teo Veronica MD Work Phone: -Laboratory Start: 05-30-2025 End: 05-30-[address] Teo Veronica MD -Laboratory Work Phone: Start: 05-30-2025 End: 05-30-2025 ambulatory Teo Veronica Facility:[facility] Start: 05-09-2025 End: 05-09-[address] Teo Veronica MD Work Phone: -Laboratory Phy Office 3rd Flr Start: 05-09-2025 End: 05-09-[address] Teo Veronica MD -Laboratory Phy Office 3rd Flr Start: 05-09-2025 End: 05-09-20[facility] Start: 03-30-2025 End: 03-30-[address] Teo Veronica MD Work Phone: [facility] Work Phone: Start: 03-30-2025 End: 03-30-[address] Teo Veronica MD -Laboratory Work Phone: Start: 03-30-2025 End: 03-30-2025 [facility] Start: 01-27-2025 End: 01-27-2025 Patient encounter procedure Lois Doll NP-[facility] Work Phone: Start: 01-27-2025 End: 01-27-2025 ambulatory [facility] Start: 10-11-2024 End: 10-11-2024 ambulatory [facility] Facility:[facility] Start: 08-17-2024 End: 08-17-2024 ambulatory Hank Ray Facility:[facility] Start: 07-05-2024 End: 07-05-2024 ambulatory Jada Atkins Facility:[facility] Start: 12-25-2023 End: 12-25-[address] Teo Veronica Work Phone: [facility] Work Phone: Start: 12-25-2023 End: 12-25-[address] Teo Veronica Work Phone: [facility]-Pulmonary Services/Neurology Work Phone: Start: 12-02-2023 End: 12-02-[address] Teo Veronica Work Phone: [facility] Work Phone: Start: 12-02-2023 End: 12-02-[address] Teo Veronica Work Phone: [facility] Work Phone: Start: 11-18-2023 End: 11-18-[address] Teo Veronica Work Phone: [facility] Work Phone: Start: 10-22-2023 End: 10-22-[address] Teo Veronica Work Phone: [facility] Work Phone: Start: 10-22-2023 End: 10-22-[address] Teo Veronica Work Phone: [facility]-Pulmonary Services/Neurology Work Phone: Start: 10-10-2023 End: 10-10-[address] Teo Veronica Work Phone: [facility] Work Phone: Start: 09-10-2023 End: 09-10-[address] Teo Veronica Work Phone: [facility] Work Phone: Start: 09-10-2023 End: 09-10-[address] Teo Veronica Work Phone: [facility]-Laboratory, Phy Office 3rd Der Start: 08-14-2023 End: 08-14-[address] Teo Veronica Work Phone: [facility] Work Phone: Start: 06-27-2023 End: 06-27-[address] Teo Veronica Work Phone: [facility] Work Phone: Start: 06-02-2023 End: 06-02-[address] Teo Veronica Work Phone: [facility] Work Phone: Start: 03-13-2023 End: 03-13-[address] Teo Veronica Work Phone: [facility] Work Phone: Start: 03-13-2023 End: 03-13-[address] Teo Veronica Work Phone: [facility]-Laboratory, Phy Office 3rd Flr Start: 02-17-2023 End: 02-17-[address] Teo Veronica Work Phone: [facility] Work Phone: Start: 02-17-2023 End: 02-17-[address] Teo Veronica Work Phone: [facility]-Sleep Lab Start: 01-14-2023 End: 01-14-[address] [facility] Start: 12-03-2022 Non-patient / Non-visit Dr. Baudilio Veronica Work Phone: [facility] Start: 12-03-2022 End: 12-03-[address] Teo Veronica Work Phone: [facility] Work Phone: Start: 12-03-2022 End: 12-03-[address] Teo Veronica Work Phone: [facility]-Cardiovascular Services Start: 12-02-2022 End: 12-02-[address] Teo Veronica Work Phone: [facility] Start: 11-29-2022 End: 11-29-[address] Teo Veronica Work Phone: [facility] Start: 09-05-2022 End: 09-05-[address] [facility] Start: 08-20-2022 End: 08-20-[address] Teo Veronica Work Phone: [facility]-Pulmonary Services/Neurology Start: 06-28-2022 Non-patient / Non-visit Dr. Baudilio Veronica Work Phone: [facility] Start: 06-28-2022 End: 06-28-[address] Teo Veronica Work Phone: [facility] Work Phone: Start: 06-28-2022 End: 06-28-[address] Teo Veronica Work Phone: [facility]-Cardiovascular Services Start: 06-04-2022 End: 06-04-[address] Teo Veronica Work Phone: [facility] Start: 03-21-2022 End: 03-21-[address] Teo Veronica Work Phone: [facility]-Laboratory, Phy Office 3rd Flr Start: 03-13-2022 End: 03-13-[address] [facility] Start: 03-04-2022 End: 03-04-[address] Teo Veronica Work Phone: [facility] Procedures Date Procedure Procedure Detail Performing Clinician Start: 06-01-2025 CT of abdomen and pe lvis without contrast Dr. Teo Veronica MD Work Phone: Start: 06-01-2025 Complete ultrasound of kidneys and bladder Dr. Teo Veronica MD Work Phone: Start: 05-30-2025 Electrophoresis: [id number] Dr. Teo Veronica MD Work Phone: Start: 05-30-2025 Electrophoresis: [id number] Dr. Teo Veronica MD Work Phone: Start: [...] Start: 10-22-2023 Coronavirus COVID-[address] Teo Veronica Work Phone: Start: 10-22-2023 Influenza Types A,B Direct FA ([facility]) Dr. Teo Veronica Work Phone: Start: 09-10-2023 Diagnostic radiograp hy of abdomen Dr. eTo Veronica Work Phone: Start: 06-28-2022 Radionuclide imaging of perfusion of myocardium under exercise stress Dr. Teo Veronica Work Phone: Start: 05-28-2017 End: 05-28-2017 BEADER TENDER Naz Scanlon PA-C Work Phone: Start: 05-28-2017 [...] WEST Ashby MD Start: 01-18-2014 End: 01-18-2014 BEADER TENDER Naz Scanlon PA-C Work Phone: Start: 01-18-2014 [...] Costa Ashby MD Start: 01-06-2013 End: 01-06-2013 BEADER TENDER Costa Ashby MD Start: 01-06-2013 End: 01-06-2013 [...] Louie Villegas Influenza Types A,B Direct FA ([facility]) Dr. Teo Veronica Work Phone: Respiratory syncytia l virus antigen assay Dr. Teo Veronica Work Phone: Plan of Treatment Date Care Activity Detail Author Start: 12-02-2022 Patient referral [facility] Work Phone: Start: 12-04-2017 End: 12-04-2017 Appointment Appointment [facility] Work Phone: Start: 05-29-2017 End: 12-04-2016 *Hepatic Function Panel *Hepatic Function Panel [facility] Work Phone: Start: 05-29-2017 End: 12-04-2016 Lipid panel [AGGREGATE] *Lipid Profile CC PCP [facility] Work Phone: Start: 05-28-2017 End: 05-28-2017 Appointment Appointment [facility] Work Phone: Start: 05-28-2017 End: 05-28-2017 BEADER TENDER BEADER TENDER [facility] Work Phone: Start: 05-28-2017 End: 05-28-2017 Follow Up Appt 6 months Follow Up Appt 6 months [facility] Work Phone: Start: 05-28-2017 End: 05-28-2017 Nuclear stress test -exercise Nuclear stress test -exercise [facility] Work Phone: Start: 11-28-2016 End: 11-29-2016 *BMP *BMP [facility] Work Phone: Start: 11-28-2016 End: 11-29-2016 *CBC with Differential *CBC with Differential [facility] Work Phone: Start: 11-28-2016 End: 11-29-2016 *Hepatic Function Panel *Hepatic Function Panel [facility] Work Phone: Start: 11-28-2016 End: 05-20-2017 Electrocardiogram, complete EKG (In office) [facility] Work Phone: Start: 11-28-2016 End: 11-28-2016 Follow Up Appt 6 months Follow Up Appt 6 months [facility] Work Phone: Start: 11-28-2016 End: 11-29-2016 Lipid panel [AGGREGATE] *Lipid Profile CC PCP [facility] Work Phone: Start: 11-28-2016 End: 11-28-2016 MMM MMM [facility] Work Phone: Start: 11-28-2016 End: 11-29-2016 Thyroid stimulating hormone (TSH) *TSH [facility] Work Phone: Start: 05-21-2016 End: 05-21-2016 BEADER TENDER BEADER TENDER [facility] Work Phone: Start: 05-21-2016 End: 05-21-2016 Follow Up Appt 6 months Follow Up Appt 6 months [facility] Work Phone: Start: 05-21-2016 End: 05-21-2016 Follow Up Appt Other Follow Up Appt Other [facility] Work Phone: Start: 11-10-2015 End: 05-20-2017 *Hepatic Function Panel *Hepatic Function Panel [facility] Work Phone: Start: 11-10-2015 End: 11-10-2015 Follow Up Appt 6 months Follow Up Appt 6 months [facility] Work Phone: Start: 11-10-2015 End: 05-22-2016 Lipid panel [AGGREGATE] *Lipid Profile CC PCP [facility] Work Phone: Start: 11-10-2015 End: 11-10-2015 MMM MMM [facility] Work Phone: Start: 02-14-2015 End: 02-14-2015 BEADER TENDER BEADER TENDER [facility] Work Phone: Start: 02-14-2015 End: 02-14-2015 Electrocardiogram, complete EKG (In office) [facility] Work Phone: Start: 02-14-2015 End: [...] Lipid panel [AGGREGATE] *Lipid Profile CC PCP [facility] Work Phone: Start: 08-11-2014 End: 08-11-2014 Follow Up Appt 6 months Follow Up Appt 6 months [facility] Work Phone: Start: 08-11-2014 End: 08-11-2014 MMM MMM [facility] Work Phone: Start: 01-18-2014 End: 01-18-2014 BEADER TENDER BEADER TENDER [facility] Work Phone: Start: 01-18-2014 End: 01-18-2014 Electrocardiogram, complete EKG (In office) [facility] Work Phone: Start: 01-18-2014 End: 02-07-2015 Follow Up Appt 6 months Follow Up Appt 6 months [facility] Work Phone: Start: 01-18-2014 End: 01-18-2014 Follow Up Appt Other Follow Up Appt Other [facility] Work Phone: Start: 07-20-2013 End: 07-20-2013 Follow Up Appt 6 months Follow Up Appt 6 months [facility] Work Phone: Start: 07-20-2013 End: 07-20-2013 MMM MMM [facility] Work Phone: Start: 01-06-2013 End: 01-06-2013 Arterial exam Arterial exam [facility] Work Phone: Start: 01-06-2013 End: 01-06-2013 BEADER TENDER BEADER TENDER [facility] Work Phone: Start: 01-06-2013 End: 01-06-2013 Follow Up Appt 6 months Follow Up Appt 6 months [facility] Work Phone: Start: 09-19-2012 End: 01-06-2013 *Hepatic Function Panel *Hepatic Function Panel [facility] Work Phone: Start: 09-19-2012 End: 01-06-2013 Lipid panel [AGGREGATE] *Lipid Profile [facility] Work Phone: Start: 03-31-2012 End: 04-21-2012 *Hepatic Function Panel *Hepatic Function Panel [facility] Work Phone: Start: 03-31-2012 End: 03-31-2012 Follow Up Appt 6 months Follow Up Appt 6 months [facility] Work Phone: Start: 03-31-2012 End: 07-03-2012 Lipid panel [AGGREGATE] *Lipid Profile [facility] Work Phone: Continuous pulse oximetry [facility] Hepatic function panel [facility] Lipid 1996 panel - S mee or Plasma [facility] Patient Education LOW%20FAT%20DIET [facility] Work Phone: Patient referral [facility] Work Phone: Radionuclide imaging of perfusion of myocardium under exercise stress [facility] Work Phone: [facility] Work Phone: Immunizations Immunization Date Immunization Notes Care Provider Fa cility 07-05-2024 influenza, injectabl e, quadrivalent, preservative free Dr. Teo Veronica MD Work Phone: [facility] 08-14-2023 influenza, injectabl e, quadrivalent, preservative free Dr. Teo Veronica Work Phone: [facility] Payers Date Payer Category Payer Self-pay [id number] 2015 Private Health Insurance [id number] [id number] 2011 Medicare [id number] Unknown [id number] 2.16.8 [id number] Unknown [id number] 2.16.8 [id number] Unknown [id number] 2.16.8 [id number] Unknown [id number] 2.16.8 [id number] Unknown [id number] 2.16.8 [id number] Unknown [id number] 2.16.8 [id number] Unknown [id number] 2.16.8 [id number] Unknown [id number] 2.16.8 [id number] Unknown [id number] 2.16.8 [id number] Unknown [id number] 2.16.8 [id number] Unknown [id number] 2.16.8 [id number] Unknown [id number] 2.16.8 [id number] Social History Date Type Detail Facility Start: 03-04-2022 End: 12-02-2023 Tobacco smoking status [facility] Unknown if ever smoked [facility] Start: 04-08-2018 None [facility] Start: 04-08-2018 Spouse/ Signif icant Other [facility] Start: 05-19-2018 Cigarettes [facility] Start: 1945 Sex Assigned At Male [facility] Start: 01-27-2024 Tobacco smoking status NHIS Ex-smoker (finding) [facility] Medical Equipment Procedure Code Equipment Code [...] Note Facility 06-01-2025 Radiology Diagnostic study note [facility] Imaging Services [address] [place] [address] Kidney and Bladder MR#: [id number] Acct: [id number] Name: ERROL RIVERA Rep #: [id number] : 1945 M [id number] From: Te Hollingsworth MD PCP: Dr. Teo Veronica MD Status: REG C SIRIA Study:Kidney and Bladder Date of Exam: 0 06/01/25 Exam# [id number] Ordering Dr: Teo Veronica MD PROCEDURE: KIDNEY AND BLADDER N/A REASON FOR EXAM: ACUTE KI INJURY TECHNIQUE: KIDNEY AND BLADDER COMPARISON: None FINDINGS: Kidneys: Normal renal sizes, parenchymal thicknesses, and echotextures. [place]: No hydronephrosis Cysts or Masses: No cysts [...] Bladder IMPRESSION: NORMAL RENAL ULTRASOUND. Reading Location: [id number] CC: Dr. Teo Veronica MD ~ Employee Wellness/Fitness Coordinator: Signed [facility] 06-01-2025 Radiology Diagnostic study note [facility] Imaging Services [address] [place], [place] [address] Abdomen/Pelvis without Cont MR#: [id number] Acct: [id number] Name: ERROL RIVERA Rep #: [id number] : 1945 M [id number] From: Te Hollingsworth MD PCP: Dr. Teo Veronica MD Status: REG C SIRIA Study:Abdomen/Pelvis without Cont Date of Exa m: 06/01/25 Exam# [id number] Ordering Dr: Teo Veronica MD PROCEDURE: ABDOMEN/PELVIS [...] Coronary artery calcification. Hiatal hernia. Reading Location: [id number] CC: Dr. Teo Veronica MD ~ Employee Wellness/Fitness Coordinator: Signed [facility] 01-27-2025 Evaluation note Diagnosis Onset Date Resolution Atherosclerotic heart disease of [place] coronary artery without angina pectoris chronic January 27, 2025 10:02am Essential (primary) hypertension January 27, 2025 10:02am Hyperlipidemia january 10:02am Left carotid artery stenosis January 27, 2025 10:02am Peripheral vascular occlusive disease chronic January 27 10:02am [facility] Work Phone: Evaluation note* Diagnosis Onset Date Resolution Status History of ischemic stroke a cute Tension headache acute Cluster headache [facility] Work Phone: Evaluation note* Diagnosis Onset Date Resolution Status Tension headache acute Cluster headache chronic Dyspnea on exertion acute Essential (primary) hypertension chronic Hyperlipidemia chronic Peripheral vascular occlusive disease [facility] Work Phone: Evaluation note* Diagnosis Onset Date Resolution Status Dyspnea on exertion acute Essential (primary) hypertension chronic Hyperlipidemia chronic Peripheral vascular occlusive disease chronic [facility] Work Phone: Evaluation note* Diagnosis Onset Date Resolution Status Dyspnea on exertion acute Atherosclerotic heart diseas e of [place] coronary artery without angina pectoris chronic Essential (primary) hypertension chronic Hyperlipidemia chronic Left carotid artery stenosis chronic Peripheral vascular occlusive disease chronic Fibromyalgia chronic Tension headache chronic Cluster headache resolved History of ischemic stroke r esolved [facility] Work Phone: Evaluation note* Diagnosis Onset Date Resolution Status Dyspnea on exertion acute Atherosclerotic heart diseas e of [place] coronary artery without angina pectoris chronic Essential (primary) hypertension chronic Hyperlipidemia chronic Left carotid artery stenosis chronic Peripheral vascular occlusive disease chronic Fibromyalgia chronic Tension headache chronic Cluster headache resolved History of ischemic stroke r esolved BMI 30.0-30.9,adult acute Sleep apnea acute [facility] Work Phone: Evaluation note* Diagnosis Onset Date Resolution Status BMI 30.0-30.9,adult acute Sleep apnea acute [facility] Work Phone: Evaluation note* Diagnosis Onset Date Resolution Status Fibromyalgia chronic Tension headache chronic Cluster headache resolved History of ischemic stroke r esolved Diastasis recti acute Asthma chronic BMI 30.0-30.9,adult chronic KAM (obstructive sleep apnea) chronic [facility] Work Phone: Evaluation note* Diagnosis Onset Date Resolution Status Asthma chronic BMI 30.0-30.9,adult chronic KAM (obstructive sleep apnea) chronic Acute pharyngitis acute [facility] Work Phone: Evaluation note* Diagnosis Onset Date Resolution Status Asthma chronic BMI 30.0-30.9,adult chronic KAM (obstructive sleep apnea) chronic Acute pharyngitis acute KAM (obstructive sleep apnea) chronic Hyperglycemia acute Fibromyalgia chronic Tension headache chronic Cluster headache resolved History of ischemic stroke r esolved [facility] Work Phone: Evaluation note* Diagnosis Onset Date Resolution Status Acute pharyngitis acute KAM (obstructive sleep apnea) chronic Hyperglycemia acute Fibromyalgia chronic Tension headache chronic Cluster headache resolved History of ischemic stroke r esolved [facility] Work Phone: Evaluation noteNo assessment information available [facility] Work Phone: Reason for referral (narrative)[facility] Summary Purpose Family History No Family History Records Found Relationship Condition Age at Onset Recorded Date/T chance father Myocardial infarction 41 Malignant neoplasm Unknown Advance Directives No Advanced Directives Records Found Advance Directive Response Recorded Date/ Time Living Will No April 18, 2021 8:56am Power of Music Composition Teacher No April 18 8:56am Advance Directive Response Recorded Date/ Time Living Will No April 18, 2021 7:56am Power of Music Composition Teacher No April 18 7:56am Advance Directive Response Recorded Date/ Time Living Will No April 18, 2021 8:56am Do you have a Healthcare Power of Music Composition Teacher? No April 18, 2021 8:56am Chief Complaint [...] Dyspnea on exertion Atherosclerotic heart disease of [place] coronary artery without angina pectoris Essential (primary) hypertension Hyperlipidemia Left carotid artery stenosis Peripheral vascular occlusive disease Fibromyalgia Tension headache Cluster headache History of ischemic stroke Chief Complaint 6 M FU 9 M FU Occlusion and stenosis of left carotid artery Sleep apnea SLEEP APNEA Reason for Visit Dyspnea on exertion Atherosclerotic heart disease of [place] coronary artery without angina pectoris Essential (primary) [...] Admit Date Atherosclerotic heart diseas e of [place] coronary artery without angina pectoris January 27, [...] section and content) DATE CREATED AUTHOR 01/27/2021 [facility] DATE CREATED AUTHOR AUTHOR'S ORGANIZ ATION 06/21/2025 [facility] Goals (unrecognized section and content) [...] Care Provider, Referring Provider Active Lois Doll MICA WASHER GLUER, MICA WASHER GLUER-C Attending Provider Active Team Status: Active Member [...] MD Primary Care Provider Active Lois Doll MICA WASHER GLUER, MICA WASHER GLUER-C Attending Provider, Referring P josue Active Team Status: Active Member Role Status Dates Dr. Teo Veronica MD Primary Care Provider Active Dr. Reinaldo Romero MD Attending Provider Active Lois Doll MICA WASHER GLUER, MICA WASHER GLUER-C Referring Provider Active Team Status: Inactive Member Role Status Dates Dr. Teo Veronica MD Primary Care Provider, Referring Provider Active Jada Atkins MICA WASHER GLUER, MICA WASHER GLUER-C Attending Provider Active Team Status: Inactive Member Role Status Dates Dr. Teo Veronica MD Primary Care Provider Active Jada Atkins MICA WASHER GLUER, MICA WASHER GLUER-C Attending Provider, Referrin g Provider Active Team [...] 2025 End: January 27, 2025 Lois Doll MICA WASHER GLUER, MICA WASHER GLUER-C Attending Provider Active Start: January 27, 2025 [...] 2025 End: January 27, 2025 Lois Doll MICA WASHER GLUER, MICA WASHER GLUER-C Attending Provider Active Start: January 27, 2025 [...] Care Provider Active Start: 2025 Dr. Teo Veronica MD Attending Provider Active Start: 2025 Dr. Teo Veronica MD Referring Provider Active Start: 2025 Team Status: Inactive Member Role/Relationship Status Dates Dr. Teo Veronica MD Primary Care Provider Active Start: June 01, 2025 End: June 01, 2025 Dr. Teo Veronica MD Attending Provider Active Start: June 01, 2025 End: June 01, 2025 Dr. Toe Veronica MD Referring Provider Active Start: June [...] BE BASED ON THE PRIMARY CLINICAL RECORDS. [facility] [employer] provides no warranty or guarantee of the accuracy or completeness of information in this document.
--- NOTE | 2025-06-22 14:16 | NEURO ---
NCS and/or EMG Patient Report Ordering Doctor: Teo Lamb Chi DATE OF SERVICE: 06/22/25 Christopher presents with complaints of numbness and tingling in both legs. Electrodiagnostic findings: Peroneal motor nerve demonstrates normal distal latency and amplitude bilaterally. There is a mild decrease in the left peroneal motor conduction velocity. There is mildly decreased right tibial motor conduction velocity. Sensory responses are within normal limits. H?reflexes prolonged bilaterally. F?waves are prolonged bilaterally. Needle EMG testing was performed in the lower limbs. All muscles tested showed no evidence of denervation with normal motor unit action potentials. Electrodiagnostic impression: This is an abnormal study in the lower limbs 1. 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 2. No electrodiagnostic evidence is noted for lumbosacral radiculopathy Multi Select Codes Neurology Neurology Interp Codes: 07757-91 Musc test done w/n test comp (interp) (2) and 12476-19 Nrv cndj test 9-10 studies (interp)
== END | disposition home or self-care (01) ==
LOC: PSN 06:58
PROVIDERS: PCP Family Medicine Geriatric Medicine; Referring Provider Family Medicine Geriatric Medicine; Visit Provider Family Medicine Geriatric Medicine
DX: R29.898 Other symptoms and signs involving the musculoskeletal system (principal); I77.9 Disorder of arteries and arterioles, unspecified
CPT/HCPCS: 95886; 95911

== ENCOUNTER → 2025-07-11 | Outpatient (CLI) | payer MEDICARE, OTHER, SELFPAY ==
--- NOTE | 2025-07-11 09:38 | RAD_ITS ---
PROCEDURE: L/S SPINE BENDING FLEX/EXT 07/11/2025 REASON FOR EXAM: LUMBAR RADICULOPATHY TECHNIQUE: Procedure Code: [id number] Modality: DX Procedure: L/S SPINE BENDING FLEX/EXT FINDINGS: No evidence of acute fracture or dislocation. Vertebral body heights are maintained. Moderate degenerative changes of the visualized spine. Normal alignment. RAD/L/S Spine Bending Flex/Ext IMPRESSION: Spondylosis. Reading Location: [id number]
== END | disposition home or self-care (01) ==
LOC: MTRAD 09:38
PROVIDERS: PCP Family Medicine Geriatric Medicine; Referring Provider Psychiatry & Neurology Neurology; Visit Provider Psychiatry & Neurology Neurology
DX: M54.16 Radiculopathy, lumbar region (principal)
CPT/HCPCS: 72120

== ENCOUNTER 2025-08-19 09:00 | Outpatient (RCR) | payer MEDICARE, OTHER, SELFPAY ==
--- NOTE | 2025-07-15 08:03 | HP.PTEVAL_ITS ---
Patient's Visit Information Visit Information Visit Information: ERROL RIVERA is a 80 year old M referred to Physical Therapy by Dr. Hank Ray MD with a diagnosis of LOW BACK PAIN ,FIBROMYALGIA. Date of Evaluation: 07/15/25 Physical Therapist: Migue Jimenez PT, Cert MDT, OCS Visit Plan Frequency: 2x /Week Duration: 4 Weeks Plan: PT INTERVENTIONS LUMBAR FLEXION ,DLS ,POSTURAL EX'S ,LE FLEXABILITY ,BLE STRENGTHENING ( HIP) ACTIVITY MODIFICATION AND MODALITIES PRN Subjective Subjective: This 80 y/o male presents to physical therapy with low back pain. Patient has pain many years and has worsen past 2 months. Patient c/o paresthesia/tingling in legs. MRI showed broad basd\ed protrusions disc ,mod stenosis torminal ,DDD x-rays spondylosis . Patient has no medication ,ENG testing and checked circulation. Aggravating factors standing /walking ~ 200 ft ,lifting back up. Alleviating factors sitting/ rest. Coughing/sneezing-. Bowel/bladder-. Patient symptoms affects sleeping. Patient condition affects QOL/function. Patient goals to manage pain SOCIAL: VOCATION: RETIRED Objective Objective: POSTURE: mild forward posture mod trunk flexed PALAPTION: tender LS NEURO: denies paresthesia/tingling ,reflexes L3-4,L4-5,L5-S1 1/3 FLEXABILITY: hamstrings mod tight LUMBAR ROM: flexion min loss ,extension mod loss ,kwesi eglides mod loss MMT: ( peak force) quads right 23.2,left 22.3 ,hamstrings right 21.9 ,left 23.1,hip flexion right 24.3 right ,left 22.3 Special Tests L/S Slump test left side: Negative L/S Slump test right side: Negative L/S Left Straight Leg Raise: Negative L/S Right Straight Leg Raise: Negative Lumbar Standing: Flexion - Mechanical Response: No effect Lumbar Standing: Flexion - Symptoms During Testing: No effect Lumbar Standing: Flexion - Symptoms After Testing: No effect Lumbar Standing: Extension - Mechanical Response: No effect Lumbar Standing: Extension - Symptoms During Testing: No effect Lumbar Standing: Extension - Symptoms After Testing: No effect Lumbar Standing: Right Side Glides - Mechanical Response: No effect Lumbar Standing: Right Side [place] - Symptoms During Testing: No effect Lumbar Standing: Right Side [place] - Symptoms After Testing: No effect Lumbar Standing: Left Side [place] - Mechanical Response: No effect Lumbar Standing: Left Side [place] - Symptoms During Testing: No effect Lumbar Standing: Left Side [place] - Symptoms After Testing: No effect Balance/Special Test Scores Oswestry Low Back Score: 15 Goals Goal 1:: Patient to be I with HEP for back to decrease symptoms Goal Time Frame: 4-6 Weeks Goal 2:: Patient to improve lumbar ROM for function of recovery for ADLS Goal Time Frame: 4-6 Weeks Goal 3:: Patient to improve peak force quads/hams/hip by 5-10# to improve gait and function Goal Time Frame: 4-6 Weeks Goal 4:: Patient to demonstrate 50% improvement with walking/standing > 5-10 mins Goal Time Frame: 4-6 Weeks Goal 5:: Patient to improve neck oswestry score by 5 points to improve QOL Goal Time Frame: 4-6 Weeks Rehabilitation Potential Physical Therapy Diagnosis: This patient has stenosis foraminal lumbar causes symptoms with walking/standing better siting increases with position thus benefit from skilled PT Rehabilitation Potential: Good Anticipated Interventions Patient/Client Instruction: Educate patient on: Condition and Plan of Care For the Purpose of:: To decrease pain, To increase ROM, To improve muscle performance and motor function, To improve ability to perform ADL's, To increase tolerance to activity/condition/position, To improve ability of physical actions for home/community/work/leisure, To improve health of tissue, To decrease soft tissue restriction and To increase flexibility/ROM Therapeutic Exercise to Include: Strength training, Postural training, Flexibilty training and Dynamic Lumbar Stabilization For the Purpose of:: To decrease pain, To increase ROM, To improve muscle performance and motor function, To improve ability to perform ADL's, To improve ability of physical actions for home/community/work/leisure, To improve health of tissue, To decrease soft tissue restriction and To increase flexibility/ROM TENS: Yes IF ES: Yes Cryotherapy (ice pack, ice massage): Yes Thermo therapy (hot pack): Yes Ultrasound (thermal/non thermal): Yes For the Purpose of:: To decrease pain, To increase ROM, To improve health of tissue, To decrease soft tissue restriction and To increase flexibility/ROM Text: Thank you for the opportunity to evaluate your patient. For Medicare and Medicare HMO plans, please review the plan of care and approve it. It will need to be FAXED BACK to us at [phone] for Medicare purposes. For Medicare only, by signing this I certify the plan of care. Please let me know if there are questions or concerns regarding this plan of care. Physician Signature: Date:
--- NOTE | 2025-08-19 09:21 | HP.PTDCSUM ---
Discharge Summary D/C summary: It has been my pleasure to treat ERROL RIVERA referred by Dr. Hank Ray MD, with the diagnosis of LOW BACK PAIN, FIBROMYALGIA for a total of 8 visit(s). Discharge Date: 08/19/25 Please see the following information for a summary of their discharge status. Subjective Subjective: Getting better over time Objective Objective/Function: POSTURE: mild forward posture mod trunk flexed PALAPTION: tender LS NEURO: denies paresthesia/tingling ,reflexes L3-4,L4-5,L5-S1 1/3 FLEXABILITY: hamstrings min tight LUMBAR ROM: flexion min loss ,extension mod loss ,side glides mod loss MMT: ( peak force) quads right 33.2,left33.3 ,hamstrings right 31.9 ,left 33.1,hip flexion right 34.3 right ,left 32.3 Goals Goal 1:: Patient to be I with HEP for back to decrease symptoms Goal Progress: Goal Met Goal 2:: Patient to improve lumbar ROM for function of recovery for ADLS Goal Progress: Goal Met Goal 3:: Patient to improve peak force quads/hams/hip by 5-10# to improve gait and function Goal Progress: Goal Met Goal 4:: Patient to demonstrate 50% improvement with walking/standing > 5-10 mins Goal Progress: Goal Met Goal 5:: Patient to improve neck oswestry score by 5 points to improve QOL Goal Progress: Goal Met Plan Plan: D/C D/C Information Discharge Comments: HEP d/c sentence: If there are questions or concerns regarding this patient's physical therapy, please feel free to call me at [phone]. Thank you for the referral of this patient. Sincerely, Migue Jimenez, PT, Cert MDT, OCS Balance/Gait/Functional tests Balance/Special Test Scores Oswestry Low Back Score: 7
== END 2025-08-19 19:00 | disposition home or self-care (01) ==
LOC: PT 09:00
PROVIDERS: PCP Family Medicine Geriatric Medicine; Referring Provider Psychiatry & Neurology Neurology; Visit Provider Psychiatry & Neurology Neurology
DX: M54.50 Low back pain, unspecified (principal); M79.7 Fibromyalgia
CPT/HCPCS: 97110; 97162; 97530